=== PATIENT | female | born 1970 | race Caucasian/White ===

== ENCOUNTER → 2018-05-05 07:54 | Outpatient (CLI) | payer OTHER, MEDICAID, SELFPAY ==
[2018-05-05 08:28] LABS: Add Manual Diff / Slide Review NO; Basophils Percent Auto 0.9 % (0-2); Eosinophils Percent Auto 1.6 % (2-4); Hematocrit 35.7 % (36-46); Hemoglobin 11.9 g/dL (12.0-16.0); Mean Corpuscular HGB Conc 33.4 % (30-36); Mean Corpuscular Hemoglobin 30.5 PG (26-34); Mean Corpuscular Volume 91.4 fL (80-100); Neutrophils Absolute Auto 3100 /uL (3000-5900); Neutrophils Percent Auto 53.5 % (50-75); Platelet Count 217 X10^3/uL (150-400); Red Blood Cell Count 3.91 X10^6/uL (4.0-5.2); Red Cell Distribution Width 13.2 % (11.6-14.8); White Blood Cell Count 5.8 X10^3/uL (4.5-11.0)
[2018-05-05 08:31] LABS: Hemoglobin A1C% w Est Avg Glu 4.8 % (4.0-6.0)
[2018-05-05 08:39] LABS: Alanine Aminotransferase 32 IU/L (9-52); Albumin 3.8 g/dL (3.5-5.0); Albumin Globulin Ratio 1.8 (1.0-2.8); Alkaline Phosphatase 43 U/L (38-126); Aspartate Aminotransferase 23 IU/L (14-36); Bilirubin Total 0.3 mg/dL (0.2-1.3); Blood Urea Nitrogen 9 mg/dL (7-17); Calcium 9.2 mg/dL (8.4-10.2); Carbon Dioxide 30 mmol/L (22-32); Chloride 102 mmol/L (98-107); Cholesterol 193 mg/dL (140-199); Estimated Glomerular Filt Rate > 60.0 mL/min (>60); Globulin 2.1 g/dL (1.7-4.1); Glucose 92 mg/dL (70-100); HDL Cholesterol 71 mg/dL (40-60); HEMOLYSIS < 15 (0-50); LDL Cholesterol Calculated 99 mg/dL (<100); Sodium 141 mmol/L (137-145); Total Protein 5.9 g/dL (6.3-8.2); Triglycerides 113 mg/dL (35-150)
[2018-05-05 09:14] LABS: Total Iron Binding Capacity 253 ug/dL (265-497)
[2018-05-05 09:20] LABS: T4 Total Thyroxine 5.68 ug/dL (5.5-11.0)
[2018-05-05 09:33] LABS: Thyroid Stimulating Hormone 2.67 uIU/mL (0.47-4.68)
[2018-05-05 09:43] LABS: Folate 11.3 ng/mL (2.76-20.0); Vitamin B12 706 pg/mL (239-931)
[2018-05-06 14:19] LABS: Parathyroid Hormone Int 47 pg/mL (14-64)
[2018-05-06 20:39] LABS: Lamotrigine Lamictal < 0.5 mcg/mL (4.0-18.0)
[2018-05-08 19:59] LABS: Vitamin B1 210 nmol/L (78-185)
[2018-05-09 15:10] LABS: Vitamin B6 66.5 ng/mL (2.1-21.7)
== END ==
PROVIDERS: Physician Assistant; PCP Family Medicine; Visit Provider Family Medicine
DX: F41.1 Generalized anxiety disorder (principal); Z98.84 Bariatric surgery status; E78.1 Pure hyperglyceridemia; E78.5 Hyperlipidemia, unspecified; K21.9 Gastro-esophageal reflux disease without esophagitis; R11.0 Nausea; R63.4 Abnormal weight loss
CPT/HCPCS: 36415; 80053; 80061; 80175; 82306; 82607; 82746; 83036; 83550; 83970; 84207; 84425; 84436; 84443; 85025

== ENCOUNTER → 2021-02-07 09:52 | Outpatient (CLI) | payer OTHER, MEDICAID, SELFPAY ==
[2021-02-07 12:03] LABS: Add Manual Diff / Slide Review NO; Basophils Absolute Auto 0 /uL (0-100); Basophils Percent Auto 0.7 % (0-2); Eosinophils Absolute Auto 100 /uL (0-450); Hematocrit 40.3 % (36-46); Hemoglobin 13.3 g/dL (12.0-16.0); Lymphocytes Absolute Auto 1700 /uL (1100-4500); Lymphocytes Percent Auto 28.3 % (25-40); Mean Corpuscular HGB Conc 33.1 % (30-36); Mean Corpuscular Hemoglobin 31.9 PG (26-34); Mean Corpuscular Volume 96.4 fL (80-100); Monocytes Absolute Auto 400 /uL (0-900); Monocytes Percent Auto 6.4 % (3-14); Neutrophils Absolute Auto 3900 /uL (1500-7000); Neutrophils Percent Auto 63.6 % (50-75); Platelet Count 176 X10^3/uL (150-400); Red Blood Cell Count 4.18 X10^6/uL (4.0-5.2); Red Cell Distribution Width 14.9 % (11.6-14.8); White Blood Cell Count 6.2 X10^3/uL (4.5-11.0)
[2021-02-07 12:14] LABS: Hemoglobin A1C% w Est Avg Glu 4.5 % (4.0-6.0)
[2021-02-07 12:58] LABS: Appearance Urine UA CLOUDY; Bilirubin Urine UA 1+ (NEGATIVE); Color Urine UA ORANGE; Glucose Urine UA TRACE g/dL (Negative); Ketones Urine UA TRACE (NEGATIVE); Leukocyte Esterase Urine UA NEGATIVE (NEGATIVE); Nitrite Urine UA POSITIVE (Negative); Occult Blood Urine UA NEGATIVE (Negative); Protein Urine UA 2+ (Negative); Urobilinogen Urine UA 0.2 E.U./dL (0.2)
[2021-02-07 13:01] LABS: Alanine Aminotransferase 53 IU/L (<35); Albumin 4.1 g/dL (3.5-5.0); Albumin Globulin Ratio 1.6 (1.0-2.8); Alkaline Phosphatase 116 U/L (38-126); Aspartate Aminotransferase 77 IU/L (14-36); BUN Creatinine Ratio 13.6 (6-22); Bilirubin Total 0.4 mg/dL (0.2-1.3); Blood Urea Nitrogen 9 mg/dL (7-17); Calcium 10.1 mg/dL (8.4-10.2); Carbon Dioxide 28 mmol/L (22-32); Chloride 101 mmol/L (98-107); Estimated Glomerular Filt Rate > 60.0 mL/min (>60); Globulin 2.6 g/dL (1.7-4.1); Glucose 90 mg/dL (70-100); HEMOLYSIS < 15 (0-50); Potassium 3.9 mmol/L (3.4-5.1); Sodium 136 mmol/L (137-145); Total Protein 6.7 g/dL (6.3-8.2)
[2021-02-07 13:09] LABS: Transferrin 229 mg/dL (206-381)
[2021-02-07 13:31] LABS: Ictotest Urine Negative (Negative); RBC Urine None Seen (0-5/HPF); Squamous Epithelial Cell Urine 10-30 /HPF (0-5/HPF); WBC Urine 1-5/HPF (0-5/HPF)
[2021-02-07 13:32] LABS: Amorphous Sediment Urine 1+; Bacteria Urine Moderate (10-30); Culture Indicated Urine Specimen Cultured; Mucus Urine 1+ (Negative)
== END ==
PROVIDERS: Family Provider Family Medicine; PCP Family Medicine; Referring Provider Orthopaedic Surgery; Visit Provider Orthopaedic Surgery
DX: Z01.818 Encounter for other preprocedural examination (principal); Z01.812 Encounter for preprocedural laboratory examination; R73.9 Hyperglycemia, unspecified; N39.0 Urinary tract infection, site not specified; D64.9 Anemia, unspecified; M85.88 Other specified disorders of bone density and structure, other site; M81.0 Age-related osteoporosis without current pathological fracture
CPT/HCPCS: 36415; 77080; 80053; 81001; 83036; 84466; 85025; 87077; 87086; 87186; 93005; 93010

== ENCOUNTER → 2021-03-06 09:36 | Outpatient (CLI) | payer OTHER, MEDICAID, SELFPAY ==
[2021-03-06 12:04] LABS: COVID19 -Nasal RAPID Negative (Negative)
== END ==
PROVIDERS: Family Provider Family Medicine; PCP Family Medicine; Visit Provider Nurse Practitioner Family
DX: Z20.822 Contact with and (suspected) exposure to COVID-19 (principal); Z01.812 Encounter for preprocedural laboratory examination
CPT/HCPCS: 87635; C9803

== ENCOUNTER → 2021-03-07 12:44 | Day surgery (SDC) | payer OTHER, MEDICAID, SELFPAY ==
[2021-03-03 08:49] VITALS: BMI 27.3
--- NOTE | 2021-03-07 07:30 | DI.RAD.S_ITS ---
PROCEDURE: XR KNEE LT 1TO2V INDICATIONS: postop prosthesis placement TECHNIQUE: 2 views of the knee were acquired. COMPARISON: October 14, 2020. FINDINGS: Bones: The patient is post medial compartment resurfacing. No perihardware lucency to suggest loosening. The remaining visualized osseous structures appear maintained. Soft tissues: Joint fluid and foci of gas are seen, compatible recent intervention. No suspicious soft tissue calcifications. IMPRESSION: Expected postop appearance as detailed above. Dictated by: Bethel Salvador M.D. on 03/08/2021 at 8:49 Approved by: Bethel Salvador M.D. on 03/13/2021 at 13:41
[2021-03-07 13:16] VITALS: BP 107/75; PULSE 78; RESP 16; TEMP 36.3; O2SAT 100; BMI 27.3
[2021-03-07] MEDS: VANCOMYCIN 1,000 MG/200 ML PIGGYBACK 200 MG IV (13:40)
[2021-03-07] MEDS: PREGABALIN 75 MG CAPSULE PO (13:47)
[2021-03-07] MEDS: ACETAMINOPHEN 325 MG TABLET 650 MG PO (13:55)
[2021-03-07] MEDS: CELECOXIB 200 MG CAPSULE PO (13:56)
[2021-03-07] MEDS: LACTATED RINGERS 1,000 ML 42 ML IV (13:57)
--- NOTE | 2021-03-07 14:20 | PM.PREOP ---
Pre-operative Note COVID-19 COVID-19 status: Negative Interval Note History & Physical reviewed/Exam performed by Physician: Yes Changes to H&P: No
--- NOTE | 2021-03-07 14:20 | PM.OP.1 ---
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 Non-operative management has failed and the patient has requested medial Uni knee replacement. The risks, benefits and alternatives to surgery were discussed with the patient prior to proceeding. Risks discussed included, but were not limited to, failure to relieve pain, stiffness, infection, nerve damage, deep venous thrombosis, pulmonary embolism, stroke, coma, heart attack, permanent paralysis and , as well as the potential need for eventual revision of the prosthetic. Surgeon: [facility] Tech: Kourtney Barbour Anesthesia Type: General and Spinal Operative Notes Findings: Some softening of the distal medial femoral condyle, minimal softening of the tibia, good stability and range of motion Closure Type: primary Specimen(s): none sent Prosthetic devices, grafts, tissues, transplants, or devices: Journey 2 Uni size 4 femur, size 4 tibia, +8 poly Estimated Blood Loss (mL): 200 Blood products transfused: none Procedure in detail: The patient was seen in the pre-operative area, where the left knee was identified as the operative site and this was marked with my initials. The patient received pre-operative antibiotics, and was taken to the operating room and placed on the operative table in the supine position. After satisfactory anesthesia, a signal timer out was performed. The left leg was encircled with a tourniquet about the proximal thigh, and the leg was prepared from the toes to the tourniquet with ChloroPrep in the usual fashion and draped through sterile drapes. The leg was elevated and exsanguinated with Eschmark bandage and the tourniquet inflated to [250] mmHg pressure. The knee was approached through an approximately 10 cm incision medial parapatella incision and carried into the knee through a medial parapatellar arthrotomy. The osteophytes and medial meniscus were removed. Next, a small amount of the anterior tibial boss was carefully resected with a saw. The guide was placed along the medial joint line. It was meticulously adjusted to make sure there was appropriate slope that it was at the joint line and then was pinned to the tibia and the femur. The medial femoral condylar cut was made in extension. The tibial cut was made in flexion. Some articular cartilage was removed from both the distal femur and the tibia in order to allow insertion of the guide. The femoral cut appeared appropriate the tibial cut was a little bit shallow. I took off the guide and checked the tibial cut and then put on the 2nd piece of the guide again and made a cut about 2 mm deeper in order to provide an adequate extension gap. The bone was meticulously irrigated with normal saline. Small amount of additional meniscus was resected posterior capsule was checked and injected with Marcaine. The extension gap was carefully checked with an 8 mm gap devulcanizer loader was noted that it fit well. A small number of additional osteophytes were resected. The tibia was a size [4]. It was noted that it fit without overhang. The femur was sized and it was noted to be a [4]. The appropriate cutting guide was pinned into place and carefully positioned on the femoral condyle. Drill holes were placed. The tibia was pinned into place and drill holes were made. Trial reduction with the appropriate poly showed full range of motion and good stability at 0, 45. and 90? with normal tracking of the components without edge loading. The bone was meticulously irrigated and dried. Additional Marcaine was injected. The posterior capsule was injected with 0.25% Marcaine mixed with 20 ml Exparel for post-operative pain control. The remainder of this mixture was injected into the capsule and subcutaneous tissues during cement curing. Range of motion was [0-130], with good stability throughout the range. The trials were then remove. The cement was as applied and the final prosthetics placed. Excess cement was removed during and after cement curing. A brief medial compartment Betadine soak was performed. After confirming there was no extruded cement posteriorly, the final tibial insert was placed. The knee was copiously irrigated and the tourniquet deflated. Hemostasis was obtained. The capsule was closed with interrupted vicryl. The subcutaneous tissue was closed with barbed sutures. The skin with a running 3-0 V-Lock suture and surgical glue. An Aquacel Ag dressing was applied and the patient was taken to recovery having tolerated the procedure well. Complications: none Post-operative Condition: stable Disposition: Acute Care Plan for aftercare: The patient will be maintained on a standard uni knee replacement protocol with weight bearing as tolerated. The patient will receive aspirin and sequential compression devices for DVT prophylaxis. The patient will be discharged home when safe for the home environment.
[2021-03-07] MEDS: CEFAZOLIN 1 GM VIAL 2 GM IV (15:18)
[2021-03-07] MEDS: BUPIVACAINE 0.25% (PF) VIAL 30 ML INJ (15:28)
[2021-03-07] MEDS: EPINEPHrine 1 MG/ML 0.15 MG INJ (15:28)
--- NOTE | 2021-03-07 15:30 | SUR.OPER ---
Supine on padded OR bed. Pillow under head, arms secured on padded armboards <90 degree abduction. Safety belt across torso. Non-operative leg secured with tape over blanket over lower leg. Operative leg secured in Justin positioner.
[2021-03-07] MEDS: TRANEXAMIC ACID 1,000 MG VIAL 1000 MG INJ ×2 (15:41→16:41)
[2021-03-07] MEDS: BUPIVACAINE LIPOSOME 266 MG/20 ML VIAL INJ (15:56)
--- NOTE | 2021-03-07 16:33 | SUR.OPER ---
Supine on padded OR bed. Pillow under head, arms secured on padded armboards <90 degree abduction. Safety belt across torso. Non-operative leg secured with tape over blanket over lower leg. Operative leg (left) secured in [place] knee positioner.
[2021-03-07 17:13] VITALS: BP 99/73; PULSE 72; RESP 14; TEMP 36.3; O2SAT 96
[2021-03-07 17:17] VITALS: BP 101/69; PULSE 85; RESP 14; O2SAT 97
[2021-03-07 17:22] VITALS: BP 101/70; PULSE 67; RESP 12; O2SAT 96
[2021-03-07 17:28] VITALS: BP 97/71; PULSE 78; RESP 16; O2SAT 96
[2021-03-07] MEDS: OXYCODONE IR 5 MG TABLET PO (17:44)
[2021-03-07 17:56] VITALS: BP 123/91; PULSE 80; RESP 12; O2SAT 96
--- NOTE | 2021-03-07 19:04 | SUR.PHASEII ---
Pt d/c home via wheelchair, able to ambulate effectively with cane, VSS, a/o x 4.
== END | disposition home or self-care (01) ==
PROVIDERS: Family Provider Family Medicine; PCP Family Medicine; Referring Provider Orthopaedic Surgery; Visit Provider Orthopaedic Surgery
PROC: (CPT 27446; principal; 2021-03-07 14:15)
DX: M87.052 Idiopathic aseptic necrosis of left femur (principal); K21.9 Gastro-esophageal reflux disease without esophagitis; F41.9 Anxiety disorder, unspecified
CPT/HCPCS: 27446; 73560; C1776; C9290; J0171; J0690; J1100; J2250; J2405; J2704; J3010

== ENCOUNTER 2021-03-12 15:20 | Emergency (ER) | payer OTHER, MEDICAID, SELFPAY ==
[2021-03-12 15:31] VITALS: BP 105/63; PULSE 96; RESP 20; TEMP 36.4; O2SAT 98; BMI 27.3
--- NOTE | 2021-03-12 15:45 | DI.US.S_ITS ---
PROCEDURE: US PERIPH VENOUS LOW EXTREM LT INDICATIONS: swelling pain recent surgery TECHNIQUE: Real-time imaging, as well as color and pulse Doppler interrogation, were performed of the lower extremity deep veins from the inguinal ligament to the popliteal fossa. COMPARISON: None. FINDINGS: The common femoral, femoral and popliteal veins are normally compressible, and free of intraluminal thrombus. Color and pulse Doppler demonstrate normal phasic intraluminal flow. There is normal augmentation response to distal compression maneuver. Diffuse soft tissue edema noted throughout the lower leg. IMPRESSION: No evidence of left lower extremity deep venous thrombosis. Non-specific lower extremity edema. Dictated by: Cholo Villalobos D.O. on 03/12/2021 at 16:44 Approved by: Cholo Villalobos D.O. on 03/12/2021 at 16:53
--- NOTE | 2021-03-12 16:16 | ED_ITS ---
HPI - Extremity Problem General Chief complaint: Extremity Problem,Nontraumatic Stated complaint: LEFT LEG SWELLING PAIN SURGERY 03/07/2021 Time Seen by Provider: 03/12/21 15:45 Source: patient and family Mode of arrival: Wheelchair Limitations: no limitations History of Present Illness HPI Narrative: Patient is 50-year-old female who is status post total like knee arthropathy day number. She was discharged from the hospital 3-4 days ago. Since then she actually has been doing well. She has been trying to increase her activity level she has been doing her range of motion exercises every hour. Especially yesterday. Today she has significant swelling of her leg and increased pain with weight-bearing. She has no numbness tingling or weakness. There is no erythema she has not had any fever. She has no chest pain shortness of breath or palpitations. Concern for DVT. Related Data Home Medications Medication Instructions Recorded Confirmed cetirizine 10 mg capsule 10 mg PO DAILY 05/12/18 03/03/21 Previous Rx's Medication Instructions Recorded albuterol sulfate 90 mcg/actuation 2 puff INHALATION Q4H PRN #1 each 12/30/17 breath activated powder inhaler risperidone 0.5 mg tablet See Rx Instructions PO DAILY #90 09/08/20 tab ondansetron HCl 8 mg tablet 8 mg PO BID-TID PRN #180 tab 11/29/20 escitalopram oxalate 20 mg tablet 20 mg PO DAILY #90 tab 12/15/20 propranolol 20 mg tablet 20 mg PO BID #180 tab 12/15/20 gabapentin 300 mg capsule 300 mg PO TID #90 cap 01/11/21 hydroxyzine HCl 50 mg tablet 50 mg PO BID PRN #180 tab 02/07/21 clonazepam 0.5 mg tablet 0.5 mg PO BID PRN 10 Days #20 tab 03/04/21 oxycodone 5 mg capsule 5 mg PO Q6H PRN #30 cap 03/07/21 Allergies Allergy/AdvReac Type Severity Reaction Status Date / Time No Known Allergies Allergy Uncoded 03/07/21 13:10 Review of Systems Review of Systems Narrative: GENERAL: Denies chills, fatigue, malaise, fever, sweats, travel HEENT: Denies sinus pain, ear pain, sore throat, difficulty swallowing, neck pain RESPIRATORY: Denies dyspnea, cough, wheezing, hemoptysis, sputum. CARDIOVASCULAR: Denies chest pain, palpitations, orthopnea, edema GASTROINTESTINAL: Denies nausea, vomiting, abdominal pain, diarrhea, constipation, melena. : Denies dysuria, frequency, incontinence, hematuria, urinary retention, flank pain. MUSCULOSKELETAL: See HPI SKIN: No rash, no erythema, no pruritus NEUROLOGIC: Denies weakness, dizziness, headache, numbness, change in speech, confusion PSYCHIATRIC: No concerning psychosocial issues. 12 point review of systems is negative except for those stated above and HPI Patient History Medical History Allergy (Unknown) Anxiety (1989) Chronic back pain (Unknown) Chronic venous insufficiency Foot pain (2003) GERD (gastroesophageal reflux disease) (Unknown) Heavy menses (Unknown) IBS (irritable bowel syndrome) (1985) Neuropathy Obstructive sleep apnea (Unknown) Painful menstrual periods (Unknown) Restless leg syndrome (2014) Shoulder pain (Unknown) Vertigo (1979) Surgical History History of removal of laparoscopic gastric banding device (2014) Hx of laparoscopic gastric banding (2011) Hx of sinus surgery (2011) Family History Grandmother Cancer Mental health problem Mother Age: 73 Mental health disorder Sister Age: 55 Heart disease Hypertension High cholesterol Mental health problem Asthma COPD (chronic obstructive pulmonary disease) Social History household members: spouse Smoking Status: Current every day smoker Tobacco: How many years used: 10 second hand exposure: No alcohol intake: former substance use type: does not use Smoking Status: Current every day smoker tobacco type: cigarettes Substance Use Type: does not use Exam Initial Vital Signs Initial Vital Signs: Vital Signs Temperature 97.5 F L 03/12/21 15:31 Pulse Rate 96 H 03/12/21 15:31 Respiratory Rate 20 03/12/21 15:31 Blood Pressure 105/63 03/12/21 15:31 Pulse Oximetry 98 03/12/21 15:31 GENERAL: Alert well-appearing 50-year-old female in no acute] distress. HEENT: Head atraumatic,EOMI, pupils reactive, face symmetric, [moist] mucous membranes CARDIOVASCULAR: Regular rate and rhythm without murmurs, rubs or gallops. RESPIRATORY: Breath sounds equal bilaterally, no wheezes rales or rhonchi. EXTREMITIES: Normal range of motion, no clubbing or edema. Neurovascularly intact Left lower extremity swelling is noted there is minimal contusion no erythema bandage is not saturated. Distal pedal pulse is intact. Calf is soft. NEUROLOGICAL: Alert and oriented x4.Normal gait and speech. SKIN: Warm, dry, no laceration, no petechiae, no rashes or lesions. Course Orders Ordered: Discontinued Medications Hydromorphone HCl (Hydromorphone 2 Mg Inj) 1 mg SUBCUT Q4H PRN PRN Reason: Pain, Severe (7-10) Last Admin: 03/12/21 16:35 Dose: 1 mg Documented by: MILY Ketorolac Tromethamine (Ketorolac 30 Mg/Ml Vial) 30 mg IM NOW ONE Stop: 03/12/21 18:15 Last Admin: 03/12/21 18:23 Dose: 30 mg Documented by: ARMANDO Vital Signs Vital signs: Vital Signs - 8 hr 03/12/21 15:31 Temperature 97.5 F L Pulse Rate 96 H Respiratory Rate 20 Blood Pressure 105/63 Pulse Oximetry 98 MDM - Extremity (Nontraumatic) Imaging Data US - DVT: Radiologist's Impression: PROCEDURE:? US PERIPH VENOUS LOW EXTREM LT ? INDICATIONS:? swelling pain recent surgery ? TECHNIQUE:? Real-time imaging, as well as color and pulse Doppler interrogation, were performed of the lower extremity deep veins from the inguinal ligament to the popliteal fossa.? ? COMPARISON:? None. ? FINDINGS:? The common femoral, femoral and popliteal veins are normally compressible, and free of intraluminal thrombus.? Color and pulse Doppler demonstrate normal phasic intraluminal flow.? There is normal augmentation response to distal compression maneuver. ?Diffuse soft tissue edema noted throughout the lower leg. ? IMPRESSION:? ? No evidence of left lower extremity deep venous thrombosis. ? Non-specific lower extremity edema. ? ? Dictated by: Cholo Villalobos D.O. on 03/12/2021 at 16:44 ? ? [facility] Narrative Medical decision making narrative: At this time no evidence of DVT. At this time patient's history is more consistent with over use and postoperative swelling. She does have swelling but certainly no sign of infection at this time. I recommend elevating icing following up with Orthopedics. Discharge Plan Departure Patient Disposition: Home Clinical Impression: Post-operative pain Instructions: DI for Postoperative Pain Activity Restrictions/Additional Instructions: *You have been diagnosed with postoperative pain *What to do: At this time the do not have a blood clot no sign of infection. This swelling is likely due from overuse. I recommend to elevating and icing. She your range of motion exercises 3-5 times daily. Follow orthopedic discharge instruction *Continue to take medications as directed Do not take naproxen tonight you received Toradol in the emergency department. Please resume all medications as previously prescribed *Follow up with your primary care provider in 2-3 days *Return to ER if you should have fever, redness, pain, any new, worsening or concerning symptoms Prescriptions: No Action cetirizine 10 mg capsule 10 mg PO DAILY RF: 0 escitalopram oxalate 20 mg tablet 20 mg PO DAILY Qty: 90 RF: 3 propranolol 20 mg tablet 20 mg PO BID Qty: 180 RF: 1 albuterol sulfate 90 mcg/actuation aerosol powdr breath activated 2 puff INHALATION Q4H PRN (Reason: shortness of breath or wheezing) Qty: 1 RF: 0 risperidone 0.5 mg tablet See Rx Instructions PO DAILY Qty: 90 RF: 1 ondansetron HCl 8 mg tablet 8 mg PO BID-TID PRN (Reason: nausea and vomiting) Qty: 180 RF: 0 gabapentin 300 mg capsule 300 mg PO TID Qty: 90 RF: 0 hydroxyzine HCl 50 mg tablet 50 mg PO BID PRN (Reason: anxiety) Qty: 180 RF: 1 clonazepam 0.5 mg tablet 0.5 mg PO BID PRN (Reason: anxiety) 10 Days Qty: 20 RF: 0 oxycodone 5 mg capsule 5 mg PO Q6H PRN (Reason: pain) Qty: 30 RF: 0 Referrals: Barry Em MD [Primary Care Provider] -
[2021-03-12] MEDS: HYDROMORPHONE 2 MG INJ 1 MG SUBCUT (16:35)
[2021-03-12] MEDS: KETOROLAC 30 MG/ML VIAL IM (18:23)
[2021-03-12 18:29] VITALS: BP 124/74; PULSE 83; RESP 14; O2SAT 100
== END 2021-03-12 18:29 | disposition home or self-care (01) ==
PROVIDERS: Emergency Provider Emergency Medicine; Family Provider Family Medicine; PCP Family Medicine
DX: G89.18 Other acute postprocedural pain (principal)
CPT/HCPCS: 93971; 96372; 99283; J1170; J1885

== ENCOUNTER 2021-03-21 14:13 | Outpatient (RCR) | payer OTHER, MEDICAID, SELFPAY ==
--- NOTE | 2021-03-21 16:12 | PT.OIE ---
Current Diagnoses Presence of left artificial knee joint (03/21/21) Past Medical History (Last Reviewed 03/13/21 @ 15:42 by Estela Romero DO) Allergy (Unknown) Anxiety (1989) Chronic back pain (Unknown) Chronic venous insufficiency Foot pain (2003) GERD (gastroesophageal reflux disease) (Unknown) Heavy menses (Unknown) History of removal of laparoscopic gastric banding device (2014) Hx of laparoscopic gastric banding (2011) Hx of sinus surgery (2011) IBS (irritable bowel syndrome) (1985) Neuropathy Obstructive sleep apnea (Unknown) Painful menstrual periods (Unknown) Restless leg syndrome (2014) Shoulder pain (Unknown) Vertigo (1979) Past Surgical History (Last Reviewed 03/13/21 @ 15:42 by Estela Romero DO) History of removal of laparoscopic gastric banding device (2014) Hx of laparoscopic gastric banding (2011) Hx of sinus surgery (2011) Visit Care Team Role Provider Type Barry Em MD Family Provider Non-Staff Primary Care Provider Specialty: Family Practice Address: [address] [place] [address], [address], [place], [address] Email: Lillie Murrieta MD Attending Provider Physician Referring Provider Specialty: Orthopedic Surgery Address: [address] [place] [address], [id number] Email: [email or web address] Initial Evaluation PT-OP-A Visit Information Start: 03/21/21 13:04 Freq: Status: Active Protocol: Document 03/21/21 15:32 (Rec: 03/21/21 16:11 [email or web address]) Out-Patient Physical Therapy Visit Information Visit Information Visit Type Initial Evaluation Visit Note attended session Visit Start Time 14:30 Visit Stop Time 15:20 Total Visit Minutes 50 Visit Number 1 Number of STOREKEEPER STEWARD Visits 0 Evaluation Information Evaluation Date 03/21/21 Precautions Precautions depression and anxiety fall risks PT-OP-B Current Condition Start: 03/21/21 13:04 Freq: Status: Active Protocol: Document 03/21/21 15:32 HH (Rec: 03/21/21 16:11 [email or web address]) Current Condition History of Current Condition Onset Date 03/07/21 Current Complaints s/p Left knee medial compartment arthroplasty History of Current Condition Rebekah is a 50yo female here for her post op rehab for Left knee medial compartment arthroplasty on 03/[address] Murrieta. Pt stated she was doing fine and walked with a SPC and did ROM ex every hour for the first few days. She then felt increase in pain and swelling a few days which led her to ER. Negative for DVT, fracture and hardware loosening and ER MD concludes pt possibly overworked her surgical knee. Pt has been more sedentary every since but her swelling and pain continue to get worse. Her pain is 7-8/10 in WB position. She only elevates her leg when she sleeps on the couch and she spends most of her time there during the day. She also started using the FWW instead of her SPC d/t increase in pain. Pt did express being nervous about her prognosis and rehab. Prior Treatments and Tests Pt has been doing her LAQ and heel slide for ROM Prior Functional Status Baseline Function- Gait SPC all times, able to tolerate 200 ft at a time. Baseline Function- Other cannot tolerate walking uphill and stairs pt has 4 LATONIA for main entrance Personal Factors Other Personal Factors That May Effect depression and anxiety Therapy/Recovery fall risks PT-OP-C Subjective Start: 03/21/21 13:04 Freq: Status: Active Protocol: Document 03/21/21 15:32 (Rec: 03/21/21 16:11 [email or web address]) Patient Questionnaires Lower Extremity Functional Scale LEFS Score 8 LEFS Impairment 80 to 99% Impaired (Score 1-16 ) OP-PT Pain Assessment Location L knee Pain Location Details anterior medial compartment Intensity 8 Scale Used Numeric (0 - 10) Description Aching,Acute,Pressure Frequency Frequent Pain Aggravating Factors Position,Changing Position, Activity,Exercise,Walking, Stair Climbing Pain Alleviating Factors Inactivity,Sitting PT-OP-F Manual Assessment Start: 03/21/21 13:04 Freq: Status: Active Protocol: Document 03/21/21 15:32 HH (Rec: 03/21/21 16:11 [email or web address]) Manual Assessments Soft Tissue Assessment Soft Tissue Mobility Assessment both LLE warm to touch. no redness noted on LLE skin significant swelling from quads to ankle DVT test at calf = negative. no pain PT-OP-G Mobility & Gait Start: 03/21/21 13:04 Freq: Status: Active Protocol: Document 03/21/21 15:32 (Rec: 03/21/21 16:11 [email or web address]) OP Mobility Evaluation Transfers Sit to Stand staggered stance with FWW Bed to Chair Transfers squat pivot transfer with fWW. OP Gait Assessment Comments Gait Comments did not assess d/t pain PT-OP-J Posture/Palpation/Skin Start: 03/21/21 13:04 Freq: Status: Active Protocol: Document 03/21/21 15:32 (Rec: 03/21/21 16:11 [email or web address]) Skin Assessment Circumference Measurement R ankle Location figure 8 Comments 20 R knee Location top of patella, mid patella, tibial tub Comments 15.5, 15, 13.2 inches L ankle Location figure 8 Comments 20.7 inches L knee Location top of patella, mid patella, tibial tub Comments 18,16,7,15.3 inches PT-OP-K Range of Motion Start: 03/21/21 13:04 Freq: Status: Active Protocol: Document 03/21/21 15:32 (Rec: 03/21/21 16:11 [email or web address]) Knee Goniometric Range of Motion Knee Right Knee ROM WFL Yes Patient Position Supine Flexion Active (degrees) 130 Extension Active (degrees) 2 Comments extension= slightly flexed 2 degrees Left Knee ROM WFL No Patient Position Supine Flexion Active (degrees) 100 Extension Active (degrees) 12 Comments extension = 12 degrees flexed Ankle and Foot Goniometric Range of Motion Ankle and Foot Right Active Ankle/Foot ROM WFL Yes Testing Position Supine Dorsiflexion with Knee Extended 5 Plantarflexion 56 Left Active Ankle/Foot ROM WFL No Dorsiflexion with Knee Extended 0 Plantarflexion 47 PT-OP-M Strength Start: 03/21/21 13:04 Freq: Status: Active Protocol: Document 03/21/21 15:32 (Rec: 03/21/21 16:11 [email or web address]) Knee Strength Knee Manual Muscle Testing Right Flexion (S2) 4+ Good+ Extension (L3) 4+ Good+ Left Flexion (S2) 3 Fair Extension (L3) 3 Fair Ankle/Foot Strength Ankle and Foot Manual Muscle Testing Right Dorsiflexion (L4) 5 Normal Plantarflexion (S1) 5 Normal Left Dorsiflexion (L4) 4 Good Plantarflexion (S1) 4 Good PT-OP-Q Treatments Start: 03/21/21 13:04 Freq: Status: Active Protocol: Document 03/21/21 15:32 HH (Rec: 03/21/21 16:11 [email or web address]) Therapeutic Exercises Sitting Exercises ankle pumps Side left Comments for HEP, whenever she can Manual Therapy Treatment Manual Techniques swelling Type L LE Body Position Hooklying Reps/Duration 10 mins Comments swelling massage with upward troke on thighs followed by lower leg. Self-Care/Home Management Treatment Education Patient Education Body Mechanics,Home Exercise Program,Joint Protection,Pain Management,Posture,Safety Other Education encouraged pt to elevate her LLE when she sits, or start sleeping in bed to reduce sitting time. Recommended ankle pumps to promote swelling management. educated pt's to perform swelling massage with upward troke on thighs followed by lower leg. PT-OP-T Assessment and Plan Start: 03/21/21 13:04 Freq: Status: Active Protocol: Document 03/21/21 15:32 HH (Rec: 03/21/21 16:11 [email or web address]) Physical Therapy Assessment Rehab Potential Rehabilitation Potential Good Evaluation Complexity Number of Personal Factors/Comorbidities 1-2 Number of Body Systems Impaired 1-2 Clinical Presentation at Evaluation Stable Impairments Impairments Activity Tolerance,Balance, Functional Activities, Functional Mobility,Gait,Pain, Posture,ROM,Soft Tissue Mobility,Strength Goals rom Impairment L knee -12 to 100 Short Term Goal (STG) pt will show improved L knee ROM by 10 degrees to improve her ability for sit <> stand with even steps STG Duration 4 weeks Group Home Goal (LTG) pt will show improved L knee ROM by 20 degrees to improve her ability to climb stair without compensation LTG Duration 8 weeks gait Impairment pt came in with using WC Short Term Goal (STG) pt will be able to start walking for household distance with FWW with pain no more than 5/10 STG Duration 4 weeks Group Home Goal (LTG) pt will be able to start walking for community distance with SPC with pain no more than 3/10 LTG Duration 8 weeks LEFS Impairment pt scores 8 on LEFS Short Term Goal (STG) pt will be able to score >30 on LEFS to show improved mobility and strnegth STG Duration 4 weeks Supply Chain Engineer Goal (LTG) pt will be able to score >50 on LEFS to show improved mobility and strnegth for community activities such as grocery shopping LTG Duration 8 weeks Assessment Summary Assessment Rebekah is a 50yo female here for her post op rehab for Left knee medial compartment arthroplasty on 03/[address] Murrieta. Pt is having a setback possibly d/t overworking herself for the first few days . Upon assessment, she presents significant swelling (see measurement above) and pain 8/10 in WB position. ROM = 12 to 100 degrees. Difficulty to amb and transfer who needs W/C and FWW. No signs of infection and DVT. Skin integrity and temperature = WNL. I spent time educated pt to be aware of her LLE position and to keep it elevated. Recommended her to perform ankle pumps and swelling massage to reduce overall swelling. I believe pt will benefit from skilled therapy to improve her knee ROM, strength, stability and gait mechanics which allows her to mobilize at home and community in a safe and comfortable manner Physical Therapy Plan Frequency and Duration Frequency of Treatment 2x/Week Duration of Treatment 8 weeks Plan of Care Start Date 03/21/21 Plan of Care End Date 05/20/21 Therapeutic Interventions Therapeutic Interventions Aquatic Therapy,Balance Training,Gait Training,Home Exercise Program,Joint Mobilizations,Manual Therapy, Neuromuscular Re-education, Patient/Caregiver Education, Self-Care/Home Management,Soft Tissue Mobilization,Taping, Therapeutic Activities, Therapeutic Exercises Modalities Cold Pack/Ice Massage,Electric Stimulation,Hot Packs, Infrared Therapy,Ultrasound Next Visit Focus/Plan Next Note Type Treatment Note Next Visit Plan check swelling swelling masage first ROm stepper/ biking
--- NOTE | 2021-03-21 16:13 | PT.OPPOC ---
Physical, Occupational & Speech Therapy At [facility] Current Diagnoses Presence of left artificial knee joint (03/21/21) Visit Care Team Role Provider Type Barry Em MD Family Provider Non-Staff Primary Care Provider Specialty: Family Practice Address: [address], [address], [place], [address] Email: Lillie Murrieta MD Attending Provider Physician Referring Provider Specialty: Orthopedic Surgery Address: [address] [place] [address], [address] Email: [email or web address] Plan Of Care PT-OP-T Assessment and Plan Start: 03/21/21 13:04 Freq: Status: Active Protocol: Document 03/21/21 15:32 HH (Rec: 03/21/21 16:11 HH [email or web address]) Physical Therapy Assessment Rehab Potential Rehabilitation Potential Good Evaluation Complexity Number of Personal Factors/Comorbidities 1-2 Number of Body Systems Impaired 1-2 Clinical Presentation at Evaluation Stable Impairments Impairments Activity Tolerance,Balance, Functional Activities, Functional Mobility,Gait,Pain, Posture,ROM,Soft Tissue Mobility,Strength Goals rom Impairment L knee -12 to 100 Short Term Goal (STG) pt will show improved L knee ROM by 10 degrees to improve her ability for sit <> stand with even steps STG Duration 4 weeks Senior Care Goal (LTG) pt will show improved L knee ROM by 20 degrees to improve her ability to climb stair without compensation LTG Duration 8 weeks gait Impairment pt came in with using WC Short Term Goal (STG) pt will be able to start walking for household distance with FWW with pain no more than 5/10 STG Duration 4 weeks Senior Care Goal (LTG) pt will be able to start walking for community distance with SPC with pain no more than 3/10 LTG Duration 8 weeks LEFS Impairment pt scores 8 on LEFS Short Term Goal (STG) pt will be able to score >30 on LEFS to show improved mobility and strnegth STG Duration 4 weeks Senior Care Goal (LTG) pt will be able to score >50 on LEFS to show improved mobility and strnegth for community activities such as grocery shopping LTG Duration 8 weeks Assessment Summary Assessment Rebekah is a 50yo female here for her post op rehab for Left knee medial compartment arthroplasty on 03/[address] Murrieta. Pt is having a setback possibly d/t overworking herself for the first few days . Upon assessment, she presents significant swelling (see measurement above) and pain 8/10 in WB position. ROM = 12 to 100 degrees. Difficulty to amb and transfer who needs W/C and FWW. No signs of infection and DVT. Skin integrity and temperature = WNL. I spent time educated pt to be aware of her LLE position and to keep it elevated. Recommended her to perform ankle pumps and swelling massage to reduce overall swelling. I believe pt will benefit from skilled therapy to improve her knee ROM, strength, stability and gait mechanics which allows her to mobilize at home and community in a safe and comfortable manner Physical Therapy Plan Frequency and Duration Frequency of Treatment 2x/Week Duration of Treatment 8 weeks Plan of Care Start Date 03/21/21 Plan of Care End Date 05/20/21 Therapeutic Interventions Therapeutic Interventions Aquatic Therapy,Balance Training,Gait Training,Home Exercise Program,Joint Mobilizations,Manual Therapy, Neuromuscular Re-education, Patient/Caregiver Education, Self-Care/Home Management,Soft Tissue Mobilization,Taping, Therapeutic Activities, Therapeutic Exercises Modalities Cold Pack/Ice Massage,Electric Stimulation,Hot Packs, Infrared Therapy,Ultrasound Next Visit Focus/Plan Next Note Type Treatment Note Next Visit Plan check swelling swelling masage first ROm stepper/ biking Plan of Care Dates Plan of Care Start Date 03/21/21 Plan of Care End Date 05/20/21 Electronically Signed by: Jesus Sequeira, PT 03/21/21 1012 Please Sign and Return: I have reviewed this Plan of Care and certify that the skilled therapy services above are required to meet the patient?s needs. Physician Signature Date Printed Name and Credentials Clinical Instructor Signature Printed Name and Credentials
--- NOTE | 2021-03-23 11:51 | PT-OP ANOTE ---
Pt called in today and reports Dr. Murrieta found out yesterday that the bottom prothesis of her R medial knee collapsed post surgically. She recommended emergency surgery to have a total knee replacement. pt is waiting for scheduling at this point and she would notify PT of her updated plan soon
--- NOTE | 2021-04-24 08:41 | PT.OPDS ---
Current Diagnoses Presence of left artificial knee joint (03/21/21) Visit Care Team Role Provider Type Barry Em MD Family Provider Non-Staff Primary Care Provider Specialty: Family Practice Address: [address] [place] [address], [address], [place], [address] Email: Lillie Murrieta MD Attending Provider Physician Referring Provider Specialty: Orthopedic Surgery Address: [address] [place] [address], [place], [address] Email: [email or web address] Visit Number Visit Number 1 Discharge Summary PT-OP-T Assessment and Plan Start: 03/21/21 13:04 Freq: Status: Active Protocol: Document 04/24/21 08:40 HH (Rec: 04/24/21 08:41 HH [id number]) Physical Therapy Plan Discharge Physical Therapy Discharge Reasons No Longer Attending PT Discharge Comments per EMR, pt was found to have medial tibial plateau fx after her uni knee replacement. She underwent L TKA in early March but she hasnt returned to PT since. DC from PT today.
== END 2021-06-27 09:37 ==
LOC: PHYS 14:13
PROVIDERS: Family Provider Family Medicine; PCP Family Medicine; Referring Provider Orthopaedic Surgery; Visit Provider Orthopaedic Surgery
DX: Z96.652 Presence of left artificial knee joint (principal)
CPT/HCPCS: 97140; 97161

== ENCOUNTER → 2021-03-22 15:57 | Outpatient (CLI) | payer OTHER, MEDICAID, SELFPAY ==
[2021-03-22 16:50] LABS: Add Manual Diff / Slide Review NO; Basophils Absolute Auto 100 /uL (0-100); Eosinophils Absolute Auto 600 /uL (0-450); Eosinophils Percent Auto 6.9 % (2-4); Hematocrit 32.7 % (36-46); Hemoglobin 10.8 g/dL (12.0-16.0); Lymphocytes Absolute Auto 2000 /uL (1100-4500); Lymphocytes Percent Auto 24.8 % (25-40); Mean Corpuscular HGB Conc 33.2 % (30-36); Mean Corpuscular Hemoglobin 31.6 PG (26-34); Mean Corpuscular Volume 95.2 fL (80-100); Monocytes Absolute Auto 400 /uL (0-900); Monocytes Percent Auto 5.5 % (3-14); Neutrophils Absolute Auto 5100 /uL (1500-7000); Neutrophils Percent Auto 61.8 % (50-75); Platelet Count 420 X10^3/uL (150-400); Red Blood Cell Count 3.43 X10^6/uL (4.0-5.2); Red Cell Distribution Width 14.4 % (11.6-14.8); White Blood Cell Count 8.2 X10^3/uL (4.5-11.0)
[2021-03-22 17:19] LABS: Alanine Aminotransferase 7 IU/L (<35); Albumin 2.8 g/dL (3.5-5.0); Albumin Globulin Ratio 1.2 (1.0-2.8); Alkaline Phosphatase 85 U/L (38-126); Aspartate Aminotransferase 18 IU/L (14-36); BUN Creatinine Ratio 10.8 (6-22); Bilirubin Total 0.2 mg/dL (0.2-1.3); Blood Urea Nitrogen 7 mg/dL (7-17); Calcium 8.8 mg/dL (8.4-10.2); Carbon Dioxide 26 mmol/L (22-32); Chloride 98 mmol/L (98-107); Estimated Glomerular Filt Rate > 60.0 mL/min (>60); Globulin 2.3 g/dL (1.7-4.1); Glucose 88 mg/dL (70-100); HEMOLYSIS < 15 (0-50); Potassium 3.9 mmol/L (3.4-5.1); Sodium 130 mmol/L (137-145); Total Protein 5.1 g/dL (6.3-8.2)
== END ==
PROVIDERS: Family Provider Family Medicine; PCP Family Medicine; Referring Provider Orthopaedic Surgery; Visit Provider Orthopaedic Surgery
DX: M87.9 Osteonecrosis, unspecified (principal); Z96.652 Presence of left artificial knee joint
CPT/HCPCS: 36415; 80053; 82306; 85025

== ENCOUNTER → 2021-03-29 08:25 | Outpatient (CLI) | payer OTHER, MEDICAID, SELFPAY ==
[2021-03-29 12:01] LABS: COVID19 -Nasal RAPID Negative (Negative)
== END ==
PROVIDERS: Family Provider Family Medicine; PCP Family Medicine; Visit Provider Nurse Practitioner Family
DX: Z20.822 Contact with and (suspected) exposure to COVID-19 (principal)
CPT/HCPCS: 87635; C9803

== ENCOUNTER 2021-03-31 10:16 | Inpatient (IN) | payer OTHER, MEDICAID, SELFPAY ==
[2021-03-29 07:45] VITALS: BMI 27.3
[2021-03-31] VITALS (12 sets, daily range): BP systolic 102–124; BP diastolic 50–88; PULSE 71–111; RESP 14–18; TEMP 35.9–36.9; O2SAT 93–97; BMI 27.3
--- NOTE | 2021-03-31 10:13 | DI.RAD.S_ITS ---
PROCEDURE: XR KNEE LT 1TO2V INDICATIONS: postop prosthesis placement TECHNIQUE: 3 views of the knee were acquired. COMPARISON: [facility], , XR KNEE LT 1TO2V, 03/07/2021, 17:26. FINDINGS: Bones: Total knee arthroplasty in good position. Intra-articular drain noted. Overlying skin adolfo present. Soft tissues: No joint effusion. No suspicious soft tissue calcifications. IMPRESSION: Total knee arthroplasty in good position Approved by: Jeremie Dow M.D. on 03/31/2021 at 21:40
[2021-03-31] MEDS: PREGABALIN 75 MG CAPSULE PO (11:03)
[2021-03-31] MEDS: CELECOXIB 200 MG CAPSULE PO (11:03)
[2021-03-31] MEDS: ACETAMINOPHEN 325 MG TABLET 975 MG PO (11:03)
[2021-03-31] MEDS: LACTATED RINGERS 1,000 ML 42 ML IV ×2 (11:10→13:19)
[2021-03-31] MEDS: VANCOMYCIN 1,000 MG/200 ML PIGGYBACK 200 MG IV (11:21)
--- NOTE | 2021-03-31 11:57 | SUR.PREOP ---
No need for INR order per Dr Murrieta. Unable to cancel.
--- NOTE | 2021-03-31 12:24 | PM.PREOP ---
Pre-operative Note COVID-19 COVID-19 status: Negative Interval Note History & Physical reviewed/Exam performed by Physician: Yes Changes to H&P: No
[2021-03-31] MEDS: fentaNYL 100 MCG/2 ML INJ 50 MCG IV ×2 (12:25→12:29)
[2021-03-31] MEDS: MIDAZOLAM 2 MG/2 ML VIAL IV (12:25)
--- NOTE | 2021-03-31 12:26 | SUR.PREOP ---
Block start time [1224] . Monitoring initiated and maintained throughout procedure. Oxygen and medications given per anesthesiologist instructions. Patient remained stable throughout procedure, no adverse reactions noted. Block end time [1232].
--- NOTE | 2021-03-31 12:34 | PM.OP.1 ---
Operative Date/Time/Diagnoses Date of procedure: 03/31/21 Time of procedure: 12:40 Pre-op diagnosis: left knee uni replacement with new medial tibial plateau fracture Post-op diagnosis: same Procedure & Clinicians Procedure: A left total knee revision with revision of all components bone grafting of the medial tibial plateau fracture Same procedure as scheduled: Yes Indications: S a 50-year-old female with a known history of osteoporosis who unfortunately likely hyperextended her knee and developed severe worsening left knee tibial plateau pain. X-ray showed evidence of a tibial plateau fracture. there was gross displacement of the medial tibial component. And a comminuted tibial plateau fracture. Beatrice the was felt that the most appropriate revision plan was for revision of unicompartment to try compartment arthroplasty with possible ORIF of the medial tibial plateau. Surgeon: Lillie Murrieta Greenhouse Transplanter: Kourtney Barbour Anesthesia Type: General and Spinal Operative Notes Findings: grossly displaced medial tibial plateau fracture. There was bone that was adherent to the underlying component but severe softening of the medial tibial plateau. There was also a small fragment posteriorly suggestive of a possible PCL injury. She had marked softening of her bone. There was adequate fixation with a cemented total knee arthroplasty with a medial tibial augment and a posterior medial femoral augment. Very soft bone both in the tibia and in the femur especially medially. Adequate stability and full range of motion. Closure Type: primary Specimen(s): none sent Prosthetic devices, grafts, tissues, transplants, or devices: [facility] knee size 4 femur, +5 posterior augment, femoral stem was 10 x 160. On the medial tibial plateau I used a 10 mm augment and a size 2 tibial component, there was also a 10 mm by 160 femoral stem. the tibia looked best covered with a 2 mm offset. The patella was 35 by 7-1/2. The implant poly was 12 mm high flexion. Applied: drain(s) Estimated Blood Loss (mL): 250 Blood products transfused: none Tourniquet time (min): 144 Procedure in detail: The patient was seen in the pre-operative area, where the patient identified the left knee as the operative site and this was marked with my initials. The patient received pre-operative antibiotics, and was taken to the operating room and placed on the operative table in the supine position. After satisfactory anesthesia, a full stack developer out was performed. The left leg was encircled with a tourniquet about the proximal thigh, and the leg was prepared from the toes to the tourniquet with ChloroPrep in the usual fashion and draped through sterile drapes. The leg was elevated and exsanguinated with Eschmark bandage and the tourniquet inflated to [250] mmHg pressure. Tourniquet was elevated for a total of 144 minutes. The knee was approached through an approximately 24 cm incision centered over the patella and carried into the knee through a medial parapatellar arthrotomy. A portion of the Medial synovium and lateral meniscus was resected. Soft tissue was carefully mobilized around the patella the patella was measured with a caliper. Bone was resected from the patella and the patellar height was reconstituted with up an appropriate sized patellar component. A cover was then placed on the patella. A small amount of additional medial and lateral meniscus was resected. The polyethylene from the unicompartment was removed. It was little difficult to remove because of the medial femoral condyle was so grossly unstable. The poly was removed. I then meticulously used a saw to carefully free the tibial component from the residual medial tibial bone. The tibial component was then removed. The distal femur was cut at 5?. A [+2] cut was used. the lateral distal femoral piece was removed. I checked the resection on the medial femoral condyle flexion adequate distal medial femoral condylar resection. I then used an oscillating saw to meticulously remove the medial femoral condylar component. It looked like an appropriate distal femoral cut and the cut was made without difficulty. there was some bone loss posteriorly for the posterior medial femoral condyle but no severe bone loss distally. An intramedullary guide was used for the tibial cut. 12 mm was resected off the least affected side.The tibia was carefully reamed up to an 11. It was set at 160 in preparation for potential offset coupling. The it was sized at a size 2. At looked appropriate with a to 2 mm offset. Proximal reaming was performed in preparation for the offset weaver apprentice. a guide was placed along the tibia and I checked the medial tibial gap. Medial tibial gap was about 10 mm. The proximal medial tibial plateau it been crunch down and was somewhat unstable. There was improved stability after resecting for the 10 mm augment. A posterior rotational punch was prepared. The rotation was assessed. The patient was placed in extension residual medial and lateral meniscus as well as any residual bone was carefully resected. Hemostasis was achieved especially posteriorly. Additional local was injected into the posterior capsule. The extension gap was assessed and no additional releases for gap balancing were needed. The femur was then prepped after inserting the trial tibial component. It was reamed For a femoral stem. it did not look like it needed additional offset. Posterior medial resection was done of 5 mm. Finishing cuts were made for the Vinson firs and the rotation was carefully checked. There was minimal anterior attenuation. The femoral component fit adequately. The femoral component trial was placed and the notch was finished. The rotation was assessed and the appropriate size femoral guide was placed on the distal femur and finishing cuts were made. There was no evidence of notching. The anterior, posterior and chamfer cuts were then made. The posterior osteophytes and soft tissues were then removed. The posterior capsule was injected with part of a mixture of 60 ml 0.25% Marcaine mixed with 20 ml Exparel for post operative pain control. The remainder of this mixture was injected into the capsule and subcutaneous tissues during cement curing. The tibial and femoral components were then placed and the knee placed through a range of motion. Range of motion was [0-130], with good stability throughout the range. The trials were then removed. the final implants were constructed on the back table. Bone graft was specifically packed along the medial tibial plateau in the region of the fracture plaque did in but attempted to avoid over stuffing the medial tibial plateau. I also kept residual room for the tibial augment. The bone was prepared with pulsatile lavage, and dried with a sponge. Cement was applied and the final prosthetics placed. Excess cement was removed during and after cement curing. A brief Betadine soak was performed. After confirming there was no extruded cement posteriorly, the final tibial insert was placed. The knee was copiously irrigated and the tourniquet deflated. Hemostasis was obtained with the [Werewolf system]. A drain was placed and brought out superolaterally. The capsule was closed with interrupted nonabsorbable suture. The subcutaneous layer was closed with barbed sutures, and the skin with a running 3-0 V-Lock suture and Surgical glue. An Aquacel Ag dressing was applied and the patient was taken to recovery having tolerated the procedure well. Complications: none Post-operative Condition: stable Disposition: Acute Care Plan for aftercare: The patient will be maintained on a standard total knee replacement protocol with partial weight bearing up to 100lbs. The patient will receive Aspirin and sequential compression devices for DVT prophylaxis. The patient will be discharged home when safe for the home environment Tomorrow or more likely Saturday..
[2021-03-31] MEDS: CEFAZOLIN 1 GM VIAL 2 GM IV ×2 (13:00→20:42)
[2021-03-31] MEDS: TRANEXAMIC ACID 1,000 MG VIAL 1000 MG INJ ×2 (13:05→15:51)
--- NOTE | 2021-03-31 13:08 | SUR.OPER ---
Supine on padded OR bed. Pillow under head, arms secured on padded armboards <90 degree abduction. Safety belt across torso. Non-operative leg secured with tape over blanket over lower leg. Operative leg secured in DeMay positioner. Foam padded brace at thigh of operative leg.
[2021-03-31] MEDS: BUPIVACAINE 0.25% (PF) 60 ML, EPINEPHrine 0.3 MG INJ (13:27)
[2021-03-31] MEDS: BUPIVACAINE LIPOSOME 266 MG/20 ML VIAL INJ ×2 (13:28→13:29)
[2021-03-31] MEDS: LORazepam 2 MG/ML INJ 0.25 MG IV ×2 (16:31→16:38)
[2021-03-31] MEDS: fentaNYL 100 MCG/2 ML INJ IV ×3 (16:32→17:10)
[2021-03-31] MEDS: IBUPROFEN 400 MG TABLET PO ×2 (18:12→20:43)
[2021-03-31] MEDS: LACTATED RINGERS 1,000 ML 100 ML IV (18:13)
[2021-03-31] MEDS: OXYCODONE IR 5 MG TABLET PO ×2 (18:41→22:53)
--- NOTE | 2021-03-31 19:09 | PC.NURSE ---
Patient to floor at 1730. She has and aquacel dressing in place with an steve wrap and hemovac that was unclamped at 1800. Vac has red bloody drainage in chamber. Patient complained of pain to knee at 7/10. Given 5mg of oxycodone and helpful. She ate well at dinner and is resting with LR infusing at 100cc/hr. CMS wnl and ppx2.
[2021-03-31] MEDS: ACETAMINOPHEN 325 MG TABLET 650 MG PO (20:42)
[2021-03-31] MEDS: PROPRANOLOL 10 MG TABLET 20 MG PO (20:42)
[2021-03-31] MEDS: DOCUSATE 100 MG CAPSULE PO (20:43)
[2021-03-31] MEDS: ASPIRIN EC 81 MG TABLET PO (20:43)
[2021-03-31] MEDS: risperiDONE 1 MG TABLET 0.5 MG PO (20:43)
[2021-03-31] MEDS: GABAPENTIN 300 MG CAPSULE PO (20:43)
[2021-04-01] VITALS (7 sets, daily range): BP systolic 93–140; BP diastolic 63–90; PULSE 67–80; RESP 16–17; TEMP 35.9–36.4; O2SAT 93–99
[2021-04-01] MEDS: OXYCODONE IR 5 MG TABLET PO (04:08)
[2021-04-01] MEDS: IBUPROFEN 400 MG TABLET PO ×5 (04:08→21:05)
[2021-04-01] MEDS: CEFAZOLIN 1 GM VIAL 2 GM IV (04:15)
[2021-04-01] MEDS: HYDROMORPHONE 2 MG TABLET PO ×5 (05:26→17:40)
[2021-04-01 05:30] LABS: Hematocrit 31.7 % (36-46); Hemoglobin 10.4 g/dL (12.0-16.0)
[2021-04-01] MEDS: HYDROMORPHONE 0.5 MG INJ 0.2 MG IV ×6 (07:39→18:53)
[2021-04-01] MEDS: hydrOXYzine pamoate 25 MG CAPSULE 50 MG PO ×2 (07:47→12:15)
[2021-04-01] MEDS: ACETAMINOPHEN 325 MG TABLET 650 MG PO ×3 (07:48→21:05)
[2021-04-01] MEDS: ASPIRIN EC 81 MG TABLET PO ×2 (07:49→21:04)
[2021-04-01] MEDS: GABAPENTIN 300 MG CAPSULE PO ×3 (07:50→21:05)
[2021-04-01] MEDS: ESCITALOPRAM 10 MG TABLET 20 MG PO (08:16)
[2021-04-01] MEDS: PROPRANOLOL 10 MG TABLET 20 MG PO ×2 (08:17→21:04)
--- NOTE | 2021-04-01 09:13 | PM.PNPO.1 ---
Subjective Subjective Date Patient Seen: 04/01/21 Time Patient Seen: 09:13 Interval history: Patient states her pain is severe. Difficulty moving leg because of knee pain. Denies fever or chills. No nausea/ vomiting. She states she has 4 steps into her house. Her mother will be available to assist her during the day as her typically works but will be home in the evenings. Exam Vital Signs (past 8 hours): - 04/01/21 04:20 Temperature 97.6 F Pulse Rate 78 Respiratory Rate 16 Blood Pressure 125/83 Pulse Oximetry 96 Oxygen Delivery Method Room Air Oxygen Flow Rate 0 Narrative Exam Narrative: 50-year-old female sitting in bed having breakfast in no apparent distress. Motor functions intact bilateral lower extremities. Sensation grossly intact to light touch bilateral lower extremities. Drain is in place. Gurdeep dressing on and functioning. Dressing is Clean, dry, intact. Objective Labs Result Diagrams: 04/01/21 05:17 Labs: Laboratory Results - last 24 hr 04/01/21 05:17 Hgb 10.4 L Hct 31.7 L PFSH Medical History Allergy (Unknown) Anxiety (1989) Chronic back pain (Unknown) Chronic venous insufficiency Foot pain (2003) GERD (gastroesophageal reflux disease) (Unknown) Heavy menses (Unknown) IBS (irritable bowel syndrome) (1985) Neuropathy Obstructive sleep apnea (Unknown) Painful menstrual periods (Unknown) Restless leg syndrome (2014) Shoulder pain (Unknown) Vertigo (1979) Surgical History History of removal of laparoscopic gastric banding device (2014) Hx of laparoscopic gastric banding (2011) Hx of sinus surgery (2011) 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) Family History Grandmother Cancer Mental health problem Mother Age: 73 Mental health disorder Sister Age: 55 Heart disease Hypertension High cholesterol Mental health problem Asthma COPD (chronic obstructive pulmonary disease) Social History household members: spouse and other Smoking Status: Current every day smoker Tobacco: How many years used: 10 second hand exposure: No alcohol intake: former substance use type: does not use Assessment & Plan Post-op Postoperative Procedures: Procedures Operation Date: 03/31/21 12:15 Actual Procedure Side Surgeon p Medial unicompartmental knee arthroplasty to total knee arthroplasty/revision poss ORIF tibia Left Lillie Murrieta MD Postoperative day: 1 Postoperative status: marginal pain control Postoperative plan: routine post-op care and other (Weight-bearing left lower extremity up to 100 lb) Postoperative plan narrative: The patient will be maintained on a standard total knee replacement protocol with partial weight bearing up to 100lbs. Mobilize with physical therapy Receive aspirin and sequential compression devices for DVT prophylaxis. Multimodal pain management Disposition: Home 1-2 days Quality VTE Deep Vein Thrombosis/Pulmonary Embolism Present on Admission: No
--- NOTE | 2021-04-01 09:14 | CM.DANOTE ---
DCP: Case received, EMR reviewed and met with patient. Introduced self and role. Was able to obtain information regarding patient's baseline activity status at home prior to surgery, and her current living situation. DCP assessment was completed with information currently available. Patient is a 50 year old female who admitted yesterday morning to the care of the orthopedic team. PCP: Dr. Em. Payer: confirmed: [employer]/Medicaid. Patient came to the hospital via private vehicle for a surgical procedure. She had a left total knee revision. Patient had been here for surgery on 03/07, and was discharged home, but had problems with her prostesis. She was having a hard time getting around, was using her walker. She was needing additional surgery to correct the problem. Met with patient in her room. She is alert and oriented. She was sitting up in bed. She has not yet worked with P.T. She resides here in [place] with her spouse, Vick. Her mother has also been staying her, her name is Bhumika, and has been assisting her since she had her last surgery. Her spouse is not always home, and works. She indicated that she was going to do outpatient surgery, but is hard to get out and for me to drive right now. Mentioned home health, which she stated, may be a good thing if she can't get out to outpatient P.T. Confirmed that her mother will stay with her to assist, and spouse when needed. She stated that she does have 4 stairs to get into the house, and she mentioned that there is no rail. Patient has never used home health before, and would have no preference on agencies. P: DCP to continue to follow, and will see how she does with physical therapy. Michelle Montemayor RN/Bolt Sawyer Discharge Planning/Care Management CM Discharge Assessment Start: 04/01/21 09:09 Freq: Status: Active Protocol: Document 04/01/21 09:09 (Rec: 04/01/21 09:14 [id number]) Discharge Planning Assessment Assigned Securities Vault Supervisor Michelle Montemayor RN/Bolt Sawyer Advance Directives? No Advance Directives on File No History Provided By Patient,Medical Record Prior Living Arrangements House Household Members spouse,other Comment Patient's mother has also been staying with her Type of transporation used prior to Drives own vehicle admit Independent with ADL's Yes Is patient alert and oriented? Yes Needs Assistance With Meal Prep,Home Chores / Shopping Comment Patient had recent surgery here on 03/07, and has been needing some assist at home. Caregiver for Another No DME Already Rented / Owned FWW / Walker Patient/Family Preference Home with Home Health Comment Discussed at visit if she is unable to go to outpatient P.T , may want to consider home health P.T. Barriers to Discharge No Comment As long as family can assist at home. Will see how she does with P.T. Discharge Plan Home Transportation Arrangement Spouse Referrals Initiated Other Additional Comment May initiate home health, but will have to see how she does with P.T. Whiteboard Updated in Patient Room with Yes name and ext. # of Securities Vault Supervisor Review Status In Process Next Review Type Continued Stay Review Pre-Anesthesia Assessment Start: 03/29/21 07:45 Freq: Status: Complete Protocol: Document 03/29/21 07:45 CAB (Rec: 03/29/21 07:57 CAB [id number]) Pre-Anesthesia Assessment PAC Comment Pt is s/p Left uni knee Patient Information Reviewed Via Chart Review Diagnostic Results BMP/CMP,CBC Comment Labs @ [facility] 03/22/21COVID screen @ [facility] 03/29/21 Primary Care Provider Yuli Burger Seen Specialist in Last 12 Months Yes Specialist Seen Emergency,Orthopedist Primary Language Divehi Preferred Language Divehi Layout Designer Required No Height 5 ft Weight 140 lb Body Mass Index (BMI) 27.3 Barriers to Learning None Hx Anesthesia Reactions No Hx Family Anesthesia Reaction No Hx Malignant Hyperthermia No Hx Blood Transfusion Reaction No Anesthesia Review Requested No Ham Smoker No alcohol intake former Alcohol Intake Frequency Other: Hx of alcohol disorder Smoking Status Current every day smoker Substance Use Type does not use Pain Present Pain Reported Musculoskeletal Symptoms Abnormal Gait,Difficulty Walking,Joint Pain Patient is completely paralyzed or No completely immobile Is patient on oxygen? No Hx Sleep Apnea No CPAP/BIPAP use not prescribed Currently Taking a Beta Alexander Yes: Propranolol Anti-Coagulant Therapy No Cardiac Testing No Hx Pacemaker/ICD No Pacemaker Rep Required? No Cardiac Clearance Received Not Applicable Gastrointestinal Symptoms Reflux Urinary Catheter Present No Hx Urinary Self Catheterization No Diabetes No HgbA1C 4.5 Date 02/07/21 Patient No Lactating No Presence of External or Internal Medical Yes: left knee Devices Received a COVID vaccine? Yes: J[employer]J Marital Status Lives With spouse Patient Discharge Plan Description Return Home Advance Directives? No
[2021-04-01] MEDS: clonazePAM 0.5 MG TABLET PO ×2 (10:23→21:05)
--- NOTE | 2021-04-01 13:37 | PT.IIE ---
Current Diagnoses Displaced fracture of medial condyle of left tibia, initial encounter for closed fracture (03/31/21) Presence of unspecified artificial knee joint (03/31/21) Surgery Performed Operation Date: 03/31/21 12:15 Actual Procedures p Medial unicompartmental knee arthroplasty to total knee arthroplasty/revision poss ORIF tibia(Left) - Lillie Murrieta MD Medical History (Last Reviewed 04/01/21 @ 09:15 by Wicho Gold PA-C) Allergy (Unknown) Anxiety (1989) Chronic back pain (Unknown) Chronic venous insufficiency Foot pain (2003) GERD (gastroesophageal reflux disease) (Unknown) Heavy menses (Unknown) IBS (irritable bowel syndrome) (1985) Neuropathy Obstructive sleep apnea (Unknown) Painful menstrual periods (Unknown) Restless leg syndrome (2014) Shoulder pain (Unknown) Vertigo (1979) Physical Therapy Inpatient Evaluation/Re-Eval M1 PT/OT-IP Prior Functional Status Start: 04/01/21 13:08 Freq: NEEDED Status: Active Protocol: Document 04/01/21 10:45 LRN (Rec: 04/01/21 13:36 LRN [id number]) Medical Review Prior Functional Status Medical History Reviewed Yes Diet/Fluid Consistency Regular Communication No deficits Mobility and Gait FWW Activities of Daily Living and IADL's Independent with spousal assist if needed. Social History Household Members spouse,other Living Arrangements House Number of Floors (Floors) Two Floors Number of Stairs To Enter/Railing? 5-6 steps. 4-5 of the steps with railing on left side ascending. Home Environment Standard Height Toilet,Tub/ Shower Home Equipment Front Wheel Walker,Tub Transfer Bench Employment Status Unknown Additional Social History Comment Spouse has new job and will not be present during the daytime to assist at home. M2 PT-IP Current Condition Start: 04/01/21 13:08 Freq: NEEDED Status: Active Protocol: Document 04/01/21 10:45 LRN (Rec: 04/01/21 13:36 LRN [id number]) Physical Therapy Current Condition Current Condition Evaluation Date 04/01/21 Treatment Diagnosis Left Total knee revision Onset Date 03/31/21 M3 PT-IP Subjective Start: 04/01/21 13:08 Freq: NEEDED Status: Active Protocol: Document 04/01/21 10:45 LRN (Rec: 04/01/21 13:36 LRN [id number]) Subjective Physical Therapy Visit Type Type Initial Evaluation Visit Start Time 10:35 Visit Stop Time 11:15 Total Visit Minutes 40 Physical Therapy Visit Comments Patient Comments Pt states she would like a copy of the goals and what she should be doing. Patient Goals Pt goal is to home with home health. Therapy Pain Assessment Pain When Pain Assessed After Treatment Pain Present Pain Present Pain Reported Location Left Knee Intensity 8 Scale Used Numeric (0 - 10) Pain Behaviors Facial Grimacing Pain Management Techniques Apply Cold M4 PT-IP Mobility and Gait Start: 04/01/21 13:08 Freq: NEEDED Status: Active Protocol: Document 04/01/21 10:45 LRN (Rec: 04/01/21 13:36 LRN [id number]) PT-Bed Mobility Assessment Supine to Sit Supine to Sit Minimal Assistance Sit to Supine Sit to Supine Independent Scooting Scooting to Edge of Bed Independent PT-Transfer Assessment Sit to and From Stand Sit to and from Stand Standby Assistance,Contact Guard Assistance,1 Person Assistance Equipment Transfer Assistive Device Gait Belt,4 Wheeled Walker Orthotic/Prosthetic Devices or Brace: No Transfers Transfer Destination Bedside Commode Transfer Technique Stand Step Pivot Transfer Ability Level of Assist Contact Guard Assistance Comments Mobility Comments Refused ambulation after sitting on Bedside commode. Gait Assessment Comments Gait Comments Pt did step tranfer, but refused gait. She was able to step transfer with CGA and minimal assist with walker and with verbal cuing for stepping/weightbearing onto L LE. Stair Climbing Assessment Comments Stair Climbing Comments Not yet appropriated. PT-Balance Assessment Sitting Balance and Reactions Static Sitting Balance Ability Normal Dynamic Sitting Balance Ability Normal Standing Balance and Reactions Static Standing Balance Ability Good Dynamic Standing Balance Ability Good Device Used FWW M5 PT-IP Objective Assessments Start: 04/01/21 13:08 Freq: NEEDED Status: Active Protocol: Document 04/01/21 10:45 LRN (Rec: 04/01/21 13:36 LRN [id number]) Orientation Orientation/Cognition Level of Alertness Alert Orientation Name,Situation Language Function Ability No Deficits Noted Safety Awareness Understands Safety Issues Memory Description No Deficits Noted Gross Range of Motion Upper Extremity ROM Assessment Within Functional Limits Lower Extremity ROM Assessment Right Impaired Impairments L knee AROM in supine: ~10-45 deg's L knee AROM in sitting: ~20-75 deg's Strength Upper Extremity Strength Assessment Within Functional Limits Lower Extremity Strength Assessment Left Impaired Hip L hip generally 3-/5 Knee L knee generally 2+/5 Sensation Assessment Comments Sensation Comments Unable to assess L knee due to bandaging. M6 PT-IP Treatment Start: 04/01/21 13:08 Freq: NEEDED Status: Active Protocol: Document 04/01/21 10:45 LRN (Rec: 04/01/21 13:36 LRN [id number]) Physical Therapy Treatment Exercises Exercises Ankle Pumps,Gluteal Sets,Quad Sets,Heel Slides,Straight Leg Raises,Supine Hip Abduction, Short Arc Quads,Seated Knee Flexion/Extension M7 PT-IP Assessment and Plan Start: 04/01/21 13:08 Freq: NEEDED Status: Active Protocol: Document 04/01/21 10:45 LRN (Rec: 04/01/21 13:36 LRN [id number]) PT Summary Assessment and Plan Potential Rehabilitation Potential Good Status of Condition at Evaluation Evolving Summary Impairments Pain,ROM,Strength,Balance,Gait ,Activity Tolerance Assessment Summary Pt is a 50 yo female who underwent and elective L total knee revision on 03/31/21. Pt is limited in L knee mobility and strength as expected and is having pain with transfers and gait. Today she tolerated physical therapy in bed quite well, but had low tolerance to standing and did not want to attempt walking due to L knee pain. The pt is expected to do well with therapy as she is aware of the protocol for rehabilitation and is agreeable to treatment. The pt will benefit from skilled physical therapy to progress her towards discharge to home with home health. Goals Bed Mobility Goal Independent Transfer Goal Independent Gait Goal Independent,Front Wheel Walker Gait Distance 50' Other Goals Stairs with SBA>Carley of 1 with railing on L side ascending, steps. Days to Meet Goals 3 Frequency of Treatment Frequency Of Treatment Twice a Day Treatment Plan Physical Therapy Treatment Plan Bed Mobility Training,Transfer Training,Gait Training, Therapeutic Exercise,Post Op Education,Discharge Planning, Hot or Cold Pack Other Recommendations and Next Treatment Stair ambulation training. Focus Weight Bearing Status Weight Bearing Status Full Weight Bearing Recommendations To Nursing Amount of Assist Needed 1 Person Assist Discharge Recommendations PT Discharge Recommendations Home with Assistance Transportation Needs at Discharge Private Vehicle
--- NOTE | 2021-04-01 14:14 | PT.IPTN ---
Current Diagnoses Displaced fracture of medial condyle of left tibia, initial encounter for closed fracture (03/31/21) Presence of unspecified artificial knee joint (03/31/21) Surgery Performed Operation Date: 03/31/21 12:15 Actual Procedures p Medial unicompartmental knee arthroplasty to total knee arthroplasty/revision poss ORIF tibia(Left) - Lillie Murrieta MD Physical Therapy Treatment Note M2 PT-IP Current Condition Start: 04/01/21 13:08 Freq: NEEDED Status: Active Protocol: Document 04/01/21 10:45 LRN (Rec: 04/01/21 13:36 LRN [id number]) Physical Therapy Current Condition Current Condition Evaluation Date 04/01/21 Treatment Diagnosis Left Total knee revision Onset Date 03/31/21 M3 PT-IP Subjective Start: 04/01/21 13:08 Freq: NEEDED Status: Active Protocol: Document 04/01/21 14:01 KS (Rec: 04/01/21 14:26 KS [id number]) Subjective Physical Therapy Visit Type Type Treatment Note Visit Start Time 14:01 Visit Stop Time 14:14 Total Visit Minutes 13 Number of SOFTWARE ENGINEER WEB SERVICES Visits 1 Physical Therapy Visit Comments Patient Comments Pt reported high level of pain . Patient Goals Pt goal is to home with home health. M4 PT-IP Mobility and Gait Start: 04/01/21 13:08 Freq: NEEDED Status: Active Protocol: Document 04/01/21 14:01 KS (Rec: 04/01/21 14:26 KS [id number]) PT-Transfer Assessment Comments Mobility Comments Pt at first refused therapy, but then agreed to complete exercises in bed. Pt offers that she just ambulated to bathroom w/ FWW and assistance from , confirms. She also stated she is waiting on more pain meds. Bag of medication noticed on floor next to patient, NATIONAL EXPANSION RECRUITER notified. Pt able to complete 1x10 ankle pumps and glute sets and 1x5 quad sets and heel slides. Explained importance of weight bearing to patient, but she is unwilling at this time. Pt left in bed with all needs in reach. Gait Assessment Comments Gait Comments Refused ambulation Stair Climbing Assessment Comments Stair Climbing Comments Not assessed. Pt stated that she has been unable to complete steps at home and typically sits on steps and boosts herself up with BUE to ascend steps at home. M5 PT-IP Objective Assessments Start: 04/01/21 13:08 Freq: NEEDED Status: Active Protocol: Document 04/01/21 10:45 LRN (Rec: 04/01/21 13:36 LRN [id number]) Orientation Orientation/Cognition Level of Alertness Alert Orientation Name,Situation Language Function Ability No Deficits Noted Safety Awareness Understands Safety Issues Memory Description No Deficits Noted Gross Range of Motion Upper Extremity ROM Assessment Within Functional Limits Lower Extremity ROM Assessment Right Impaired Impairments L knee AROM in supine: ~10-45 deg's L knee AROM in sitting: ~20-75 deg's Strength Upper Extremity Strength Assessment Within Functional Limits Lower Extremity Strength Assessment Left Impaired Hip L hip generally 3-/5 Knee L knee generally 2+/5 Sensation Assessment Comments Sensation Comments Unable to assess L knee due to bandaging. M6 PT-IP Treatment Start: 04/01/21 13:08 Freq: NEEDED Status: Active Protocol: Document 04/01/21 14:01 KS (Rec: 04/01/21 14:26 KS [id number]) Physical Therapy Treatment Exercises Exercises Ankle Pumps,Gluteal Sets,Quad Sets,Heel Slides Other Treatments Other Treatment Performed Education on weight bearing importance, discussed HHPT. M7 PT-IP Assessment and Plan Start: 04/01/21 13:08 Freq: NEEDED Status: Active Protocol: Document 04/01/21 14:01 KS (Rec: 04/01/21 14:26 KS [id number]) PT Summary Assessment and Plan Potential Rehabilitation Potential Good Status of Condition at Evaluation Evolving Summary Impairments Pain,ROM,Strength,Balance,Gait ,Activity Tolerance Assessment Summary Pt at first refused therapy this PM due to pain, but was able to complete LE exercises to promote blood flow, ROM, and strengthening. Pt c/o increased pain w/ quad sets. Refused ambulation this PM despite education provided on importance of weight bearing, however reported ambulation to bathroom w/ and FWW. Will continue to progress pt progress, but anticipating d/c home w/ HHPT and support. Goals Bed Mobility Goal Independent Transfer Goal Independent Gait Goal Independent,Front Wheel Walker Gait Distance 50' Other Goals Stairs with SBA>Carley of 1 with railing on L side ascending, steps. Days to Meet Goals 3 Frequency of Treatment Frequency Of Treatment Twice a Day Treatment Plan Physical Therapy Treatment Plan Bed Mobility Training,Transfer Training,Gait Training, Therapeutic Exercise,Post Op Education,Discharge Planning, Hot or Cold Pack Other Recommendations and Next Treatment Stair ambulation training. Focus Weight Bearing Status Weight Bearing Status Full Weight Bearing Recommendations To Nursing Amount of Assist Needed 1 Person Assist Discharge Recommendations PT Discharge Recommendations Home with Assistance Transportation Needs at Discharge Private Vehicle
[2021-04-01] MEDS: risperiDONE 1 MG TABLET 0.5 MG PO (21:04)
[2021-04-01] MEDS: DOCUSATE 100 MG CAPSULE PO (21:05)
[2021-04-01] MEDS: OXYCODONE IR 10 MG TABLET PO (22:10)
[2021-04-02] MEDS: IBUPROFEN 400 MG TABLET PO ×5 (04:31→20:11)
[2021-04-02] MEDS: OXYCODONE IR 10 MG TABLET PO (04:32)
[2021-04-02 04:36] VITALS: BP 130/83; PULSE 72; RESP 17; TEMP 36.3; O2SAT 97
[2021-04-02] MEDS: HYDROMORPHONE 0.5 MG INJ 0.2 MG IV ×4 (06:05→20:17)
[2021-04-02 07:05] VITALS: BP 118/78; PULSE 66; RESP 16; TEMP 36.6; O2SAT 94
[2021-04-02 08:07] VITALS: O2SAT 99
--- NOTE | 2021-04-02 08:34 | PM.PNPO.1 ---
Subjective Subjective Date Patient Seen: 04/02/21 Time Patient Seen: 08:35 Interval history: The patient reports pain between 10/03 and 02/03. She says the oxycodone, does nothing and that she is receiving 1/2 the dose of hydromorphone she took orally before surgery. She is having to rely on IV hydromorphone for pain control. She is independent transferring to the bedside commode, but hasn't ambulated outside her hospital room. Exam Vital Signs (past 8 hours): - 04/02/21 04:36 04/02/21 07:05 04/02/21 08:07 Temperature 97.4 F L 97.9 F Pulse Rate 72 66 Respiratory Rate 17 16 Blood Pressure 130/83 118/78 Pulse Oximetry 97 94 99 Oxygen Delivery Method Room Air Oxygen Flow Rate 0 Narrative Exam Narrative: Left knee wound is dressed with a small amount of drainage on the bandage overlying the operative wound and a small amount of drainage surrounding the drain tube. Calf is soft. Light touch and motion are intact in the left lower extremity. Objective Labs Result Diagrams: 04/01/21 05:17 [facility] Medical History Allergy (Unknown) Anxiety (1989) Chronic back pain (Unknown) Chronic venous insufficiency Foot pain (2003) GERD (gastroesophageal reflux disease) (Unknown) Heavy menses (Unknown) IBS (irritable bowel syndrome) (1985) Neuropathy Obstructive sleep apnea (Unknown) Painful menstrual periods (Unknown) Restless leg syndrome (2014) Shoulder pain (Unknown) Vertigo (1979) Surgical History History of removal of laparoscopic gastric banding device (2014) Hx of laparoscopic gastric banding (2011) Hx of sinus surgery (2011) 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) Family History Grandmother Cancer Mental health problem Mother Age: 73 Mental health disorder Sister Age: 55 Heart disease Hypertension High cholesterol Mental health problem Asthma COPD (chronic obstructive pulmonary disease) Social History household members: spouse and other Smoking Status: Current every day smoker Tobacco: How many years used: 10 second hand exposure: No alcohol intake: former substance use type: does not use Assessment & Plan Post-op Postoperative Procedures: Procedures Operation Date: 03/31/21 12:15 Actual Procedure Side Surgeon p Medial unicompartmental knee arthroplasty to total knee arthroplasty/revision poss ORIF tibia Left Lillie Murreita MD Postoperative day: 2 Postoperative status: marginal pain control, anemia and other (Marginal progress with ambulation) Postoperative plan: routine post-op care, ambulate and other (Discontinue drain, we will modify her pain medications.) Postoperative plan narrative: We will discontinue the oxycodone. I will add a 4 mg option for oral Dilaudid. We will discontinue the drain. She will continue with physical therapy. She is aware that she likely will be discharged tomorrow. If she has made insufficient progress to be safe at home she will require [facility]. Time Spent With Patient Time with patient: 15-24 minutes Quality VTE Deep Vein Thrombosis/Pulmonary Embolism Present on Admission: No
[2021-04-02] MEDS: ASPIRIN EC 81 MG TABLET PO ×2 (09:21→20:11)
[2021-04-02] MEDS: ACETAMINOPHEN 325 MG TABLET 650 MG PO ×3 (09:21→20:10)
[2021-04-02] MEDS: HYDROMORPHONE 4 MG TABLET PO ×4 (09:21→21:16)
[2021-04-02] MEDS: GABAPENTIN 300 MG CAPSULE PO ×3 (09:22→20:11)
[2021-04-02] MEDS: PROPRANOLOL 10 MG TABLET 20 MG PO ×2 (09:22→20:11)
--- NOTE | 2021-04-02 09:30 | CM.DPC ---
DCP Cont: Patient is interested in home health services. Discussed with patient. She has no preferences on agencies, but unclear as to who would take her [place] insurance. Called [facility], spoke to Thu,and they do not accept. Spoke to Jahaira at [facility] and she indicated that they are capped at their [place]. Spoke to Anna at [facility]. She indicated that she will review, and will not know yet today since her insurance specialists are not here today. She will advocate for patient since she gets a lot of our Medicare patients. P: DCP to continue to follow. Will go ahead and sent the referral to [facility]. Michelle Montemayor RN/Monkey Trainer
--- NOTE | 2021-04-02 11:00 | PT.IPTN ---
Current Diagnoses Displaced fracture of medial condyle of left tibia, initial encounter for closed fracture (03/31/21) Presence of unspecified artificial knee joint (03/31/21) Surgery Performed Operation Date: 03/31/21 12:15 Actual Procedures p Medial unicompartmental knee arthroplasty to total knee arthroplasty/revision poss ORIF tibia(Left) - Lillie Murrieta MD Physical Therapy Treatment Note M2 PT-IP Current Condition Start: 04/01/21 13:08 Freq: NEEDED Status: Active Protocol: Document 04/01/21 10:45 LRN (Rec: 04/01/21 13:36 LRN [id number]) Physical Therapy Current Condition Current Condition Evaluation Date 04/01/21 Treatment Diagnosis Left Total knee revision Onset Date 03/31/21 M3 PT-IP Subjective Start: 04/01/21 13:08 Freq: NEEDED Status: Active Protocol: Document 04/02/21 11:00 AW (Rec: 04/02/21 13:28 AW [id number]) Subjective Physical Therapy Visit Type Type Treatment Note Visit Start Time 10:20 Visit Stop Time 11:00 Total Visit Minutes 40 Notes Pain medication adjusted this AM and pt reports improved pain management Number of CLINICAL DOCUMENTATION NURSE Visits 0 Physical Therapy Visit Comments Patient Comments Improving pain management per pt. Patient Goals Pt goal is to home with home health. Therapy Pain Assessment Pain When Pain Assessed During Mobility Pain Present Pain Present Pain Reported Location Left Knee Intensity 5 Scale Used Numeric (0 - 10) Pain Management Techniques Apply Cold,Timing of Activity with Medications M4 PT-IP Mobility and Gait Start: 04/01/21 13:08 Freq: NEEDED Status: Active Protocol: Document 04/02/21 11:00 AW (Rec: 04/02/21 13:28 AW [id number]) PT-Bed Mobility Assessment Supine to Sit Supine to Sit Contact Guard Assistance Scooting Scooting to Edge of Bed Contact Guard Assistance PT-Transfer Assessment Sit to and From Stand Sit to and from Stand Standby Assistance,Contact Guard Assistance,1 Person Assistance Equipment Transfer Assistive Device Gait Belt,Front Wheeled Walker Orthotic/Prosthetic Devices or Brace: No Transfers Transfer Destination Chair Transfer Technique ambulated with FWW Comments Mobility Comments Pt was lying in bed as PT arrived. BP 122/77 HR 67. After brief supine exercises, pt sat up EOB and used FWW to stand CGA. She walked to the chair set up just outside her room with FWW CGA and transferred with cues to use UEs to control descent. She stood from the chair CGA and used FWW to ambulate 70 feet in the halls with FWW SBA with chair follow. She transferred to the chair SBA and was pushed back in to her room. Pt was positioned with legs elevated, ice packs on her knee, call light and tray table in reach. Gait Assessment Gait Gait Assistance Required: Standby Assistance,Contact Guard Assist Distance (Feet) 70 Able to Maintain Weight Bearing Status Yes During Gait Assistive Devices Assistive Device Gait Belt,Front Wheeled Walker Gait Deviations General Gait Pattern Antalgic,Decreased Stride Length,Decreased Feet Clearance,Flexed Trunk,Step-to Gait Factors Limiting Gait Function Factors Limiting Gait Function Decreased Activity Tolerance, Decreased Strength,Limited Range of Motion,Pain Comments Gait Comments Pt has FWW brought from home but it is wide and tall. Trialed use of standard FWW and pt was more comfortable and better able to recruit her UE muscles for support. Brooke was quite slow but pt was steady with no evidence of imbalance. Stair Climbing Assessment Comments Stair Climbing Comments Not assessed. Pt stated that she has been unable to complete steps at home and typically sits on steps and boosts herself up with BUE to ascend steps at home. PT-Balance Assessment Sitting Balance and Reactions Static Sitting Balance Ability Normal Dynamic Sitting Balance Ability Normal Standing Balance and Reactions Static Standing Balance Ability Good Dynamic Standing Balance Ability Good Device Used FWW M5 PT-IP Objective Assessments Start: 04/01/21 13:08 Freq: NEEDED Status: Active Protocol: Document 04/01/21 10:45 LRN (Rec: 04/01/21 13:36 LRN [id number]) Orientation Orientation/Cognition Level of Alertness Alert Orientation Name,Situation Language Function Ability No Deficits Noted Safety Awareness Understands Safety Issues Memory Description No Deficits Noted Gross Range of Motion Upper Extremity ROM Assessment Within Functional Limits Lower Extremity ROM Assessment Right Impaired Impairments L knee AROM in supine: ~10-45 deg's L knee AROM in sitting: ~20-75 deg's Strength Upper Extremity Strength Assessment Within Functional Limits Lower Extremity Strength Assessment Left Impaired Hip L hip generally 3-/5 Knee L knee generally 2+/5 Sensation Assessment Comments Sensation Comments Unable to assess L knee due to bandaging. M6 PT-IP Treatment Start: 04/01/21 13:08 Freq: NEEDED Status: Active Protocol: Document 04/02/21 11:00 AW (Rec: 04/02/21 13:28 AW [id number]) Physical Therapy Treatment Exercises Exercises Ankle Pumps,Quad Sets,Heel Slides,Passive Knee Extension Hang,Seated Knee Flexion/ Extension Education Education Provided Weight Bearing Status,Post-Op Packet,Safety Other Treatments Other Treatment Performed Emphasized importance of ROM exercises in early phases of rehab. Also encouraged pt to ice as much as possible to decrease swelling and pain. M7 PT-IP Assessment and Plan Start: 04/01/21 13:08 Freq: NEEDED Status: Active Protocol: Document 04/02/21 11:00 AW (Rec: 04/02/21 13:28 AW [id number]) PT Summary Assessment and Plan Summary Progress Towards Goals Progressing Toward Goals,Slow Progress due to Pain Assessment Summary Pt completed ther ex with ROM emphasis and was able to ambulate in the halls with FWW this session. She did better with more appropriately-sized FWW and PT does recommend smaller size for home. Pt is progressing and will likely be safe to discharge home with assist when medically cleared. Goals Bed Mobility Goal Independent Transfer Goal Independent Gait Goal Independent,Front Wheel Walker Gait Distance 50' Other Goals Stairs with SBA>Carley of 1 with railing on L side ascending, steps. Days to Meet Goals 3 Frequency of Treatment Frequency Of Treatment Twice a Day Treatment Plan Physical Therapy Treatment Plan Bed Mobility Training,Transfer Training,Gait Training, Therapeutic Exercise,Post Op Education,Discharge Planning, Hot or Cold Pack Other Recommendations and Next Treatment Stair ambulation training. Focus Weight Bearing Status Weight Bearing Status Weight Bear as Tolerated Recommendations To Nursing Amount of Assist Needed Standby Assistance Discharge Recommendations PT Discharge Recommendations Home with Assistance, Outpatient PT Other Discharge Recommendations HH at first due to pt's inability to get to outpatient Transportation Needs at Discharge Private Vehicle
[2021-04-02 11:19] VITALS: BP 121/81; PULSE 61; RESP 16; TEMP 36.1; O2SAT 99
[2021-04-02] MEDS: hydrOXYzine pamoate 25 MG CAPSULE 50 MG PO ×2 (11:33→20:12)
--- NOTE | 2021-04-02 14:02 | PT.IPTN ---
Current Diagnoses Displaced fracture of medial condyle of left tibia, initial encounter for closed fracture (03/31/21) Presence of unspecified artificial knee joint (03/31/21) Surgery Performed Operation Date: 03/31/21 12:15 Actual Procedures p Medial unicompartmental knee arthroplasty to total knee arthroplasty/revision poss ORIF tibia(Left) - Lillie Murrieta MD Physical Therapy Treatment Note M2 PT-IP Current Condition Start: 04/01/21 13:08 Freq: NEEDED Status: Active Protocol: Document 04/01/21 10:45 LRN (Rec: 04/01/21 13:36 LRN [id number]) Physical Therapy Current Condition Current Condition Evaluation Date 04/01/21 Treatment Diagnosis Left Total knee revision Onset Date 03/31/21 M3 PT-IP Subjective Start: 04/01/21 13:08 Freq: NEEDED Status: Active Protocol: Document 04/02/21 14:02 AW (Rec: 04/02/21 14:55 AW [id number]) Subjective Physical Therapy Visit Type Type Treatment Note Visit Start Time 13:44 Visit Stop Time 14:02 Total Visit Minutes 18 Number of TOBACCO STRIPPER HAND Visits 0 Physical Therapy Visit Comments Patient Comments I must have overdone it this morning. Therapy Pain Assessment Pain When Pain Assessed During Mobility Pain Present Pain Present Pain Reported Location Left Knee Intensity 8 Scale Used Numeric (0 - 10) Pain Management Techniques Apply Cold,Timing of Activity with Medications M4 PT-IP Mobility and Gait Start: 04/01/21 13:08 Freq: NEEDED Status: Active Protocol: Document 04/02/21 14:02 AW (Rec: 04/02/21 14:55 AW [id number]) PT-Transfer Assessment Sit to and From Stand Sit to and from Stand Standby Assistance,Contact Guard Assistance,1 Person Assistance Equipment Transfer Assistive Device Gait Belt,Front Wheeled Walker Orthotic/Prosthetic Devices or Brace: No Transfers Transfer Destination Wheelchair Transfer Ability Level of Assist Contact Guard Assistance Comments Mobility Comments Pt was using FWW and approaching the door to her room using FWW with her spouse behind her as PT arrived. Pt transferred to w/c SBA and agreed to trial stairs. PT propelled w/c to therapy stairs. Pt stated she has fear of heights and can not practice stairs near the balcony overlooking lower level. She agreed to work on the stairs on ground level. See stair assessment below. Gait Assessment Gait Gait Assistance Required: Standby Assistance,Contact Guard Assist Distance (Feet) 10 Able to Maintain Weight Bearing Status Yes During Gait Assistive Devices Assistive Device Gait Belt,Front Wheeled Walker Orthotic/Prosthetic Devices or Brace: No Gait Deviations General Gait Pattern Antalgic,Decreased Stride Length,Decreased Feet Clearance,Flexed Trunk,Step-to Gait Comments Gait Comments Steps taken to and from w/c during stair training. Stair Climbing Assessment Evaluation Level of Assist On Stairs Moderate Assistance,1 Person Assistance Devices Stair Climbing Assistive Devices Straight Cane,Left Railing Technique/Endurance Stair Climbing Direction Ascend and Descend Stair Climbing Technique Step to Step Number of Steps Climbed 1 Stair Climbing Set # Repetitions (reps) 1 Comments Stair Climbing Comments At 1st level stairs near elevator: Pt used left rail and SPC held in right hand to ascend leading with RLE mod A x 1. She complained of intense pain after one step and declined further stair training. Pt was instructed to step down backward leading with LLE. She backed up to the w/c and sat CGA. Pt's spouse was present and attentive but did not provide any hand-on assist at this treatment. M5 PT-IP Objective Assessments Start: 04/01/21 13:08 Freq: NEEDED Status: Active Protocol: Document 04/01/21 10:45 LRN (Rec: 04/01/21 13:36 LRN [id number]) Orientation Orientation/Cognition Level of Alertness Alert Orientation Name,Situation Language Function Ability No Deficits Noted Safety Awareness Understands Safety Issues Memory Description No Deficits Noted Gross Range of Motion Upper Extremity ROM Assessment Within Functional Limits Lower Extremity ROM Assessment Right Impaired Impairments L knee AROM in supine: ~10-45 deg's L knee AROM in sitting: ~20-75 deg's Strength Upper Extremity Strength Assessment Within Functional Limits Lower Extremity Strength Assessment Left Impaired Hip L hip generally 3-/5 Knee L knee generally 2+/5 Sensation Assessment Comments Sensation Comments Unable to assess L knee due to bandaging. M6 PT-IP Treatment Start: 04/01/21 13:08 Freq: NEEDED Status: Active Protocol: Document 04/02/21 14:02 AW (Rec: 04/02/21 14:55 AW [id number]) Physical Therapy Treatment Education Education Provided Weight Bearing Status,Safety Other Treatments Other Treatment Performed Pt's spouse was present and attentive but did not provide any hands-on assist at this time. M7 PT-IP Assessment and Plan Start: 04/01/21 13:08 Freq: NEEDED Status: Active Protocol: Document 04/02/21 14:02 AW (Rec: 04/02/21 14:55 AW [id number]) PT Summary Assessment and Plan Summary Progress Towards Goals Progressing Toward Goals,Slow Progress due to Pain Assessment Summary Pt attempted stair navigation using left rail ascending and SPC. She completed one step mod A x 1 and max cues. Her spouse was present and attentive. Pt unable to complete more stairs due to complaint of increased pain. Discussed further caregiver training with pt's spouse who states he will be at work all day tomorrow and may not be able to potato picker pt until 5:00 p.m. or later. Pt will be safe to discharge home with assist once medically stable. Goals Bed Mobility Goal Independent Transfer Goal Independent Gait Goal Independent,Front Wheel Walker Gait Distance 50' Other Goals Stairs with SBA>Carley of 1 with railing on L side ascending, steps. Days to Meet Goals 3 Frequency of Treatment Frequency Of Treatment Twice a Day Treatment Plan Physical Therapy Treatment Plan Bed Mobility Training,Transfer Training,Gait Training, Therapeutic Exercise,Post Op Education,Discharge Planning, Hot or Cold Pack Other Recommendations and Next Treatment Stair ambulation training; Focus involve spouse (or another caregiver) in stair training as able Weight Bearing Status Weight Bearing Status Weight Bear as Tolerated Recommendations To Nursing Amount of Assist Needed 1 Person Assist Discharge Recommendations PT Discharge Recommendations Home with Assistance, Outpatient PT Other Discharge Recommendations HH at first due to pt's inability to get to outpatient Transportation Needs at Discharge Private Vehicle
[2021-04-02 16:22] VITALS: BP 105/69; PULSE 65; RESP 16; TEMP 36.2; O2SAT 97
[2021-04-02] MEDS: risperiDONE 1 MG TABLET 0.5 MG PO (20:12)
[2021-04-02] MEDS: SODIUM CHLORIDE 0.9% FLUSH 10 ML IV (20:12)
[2021-04-02] MEDS: ESCITALOPRAM 10 MG TABLET 20 MG PO (20:12)
[2021-04-02 20:31] VITALS: BP 117/78; PULSE 81; RESP 21; TEMP 36.9; O2SAT 95
[2021-04-03 00:27] VITALS: BP 120/82; PULSE 85; RESP 20; TEMP 36.7; O2SAT 98
[2021-04-03] MEDS: IBUPROFEN 400 MG TABLET PO ×4 (01:12→12:54)
[2021-04-03] MEDS: HYDROMORPHONE 4 MG TABLET PO ×4 (01:13→12:54)
--- NOTE | 2021-04-03 07:33 | P.DS_ITS ---
History of Present Illness History of Present Illness Date Patient Seen: 04/03/21 Time Patient Seen: 07:34 Chief complaint: Left knee pain s/p left TKA revision Narrative: The patient is complaining of moderate left knee pain this morning. She notes that the Dilaudid 4 mg orally is helping significantly with her pain. She was taking 2 mg of Dilaudid prior to her unicompartmental medial knee arthroplasty fracture. Her original surgery was on 03/07/2021. She denies any fevers, chills, night sweats. No nausea or vomiting. Overall she is feeling better and like to be discharged home today with home health. Discharge Providers Provider Date of admission: 03/31/21 10:16 Discharge Date: 04/03/21 Primary care physician: Barry Em MD Consults: 03/31/21 10:13 Consult to Anesthesiology Routine Comment: Consulting Provider: Anesthesiologist Reason for consultation: Regional block for post operative pain control 03/31/21 11:02 Consult to Respiratory Therapy Evaluate & Treat Comment: Physician Instructions: Evaluate and treat 03/31/21 17:47 Consult to Discharge Planning Routine Comment: Consult to Physical Therapy Evaluate & Treat Comment: Physician Instructions: postop TKA protocol Consult to Respiratory Therapy Evaluate & Treat Comment: Physician Instructions: Evaluate and treat Discharge provider: Kourtney Barbour PA-C Summary Hospital Course Discharge Diagnosis: - left knee uni replacement with new medial tibial plateau fracture -osteoperosis Hospital Course: Date of procedure: 03/31/21 Time of procedure: 12:40 Procedure & Clinicians Procedure: A left total knee revision with revision of all components bone grafting of the medial tibial plateau fracture Same procedure as scheduled: Yes Indications: S a 50-year-old female with a known history of osteoporosis who unfortunately likely hyperextended her knee and developed severe worsening left knee tibial plateau pain. X-ray showed evidence of a tibial plateau fracture. there was gross displacement of the medial tibial component. And a comminuted tibial plateau fracture. [place] the was felt that the most appropriate revision plan was for revision of unicompartment to try compartment arthroplasty with possible ORIF of the medial tibial plateau. Surgeon: Lillie Murrieta Exterior Interior Specialist: Kourtney Barbour Anesthesia Type: General and Spinal Operative Notes Findings: grossly displaced medial tibial plateau fracture. There was bone that was adherent to the underlying component but severe softening of the medial tibial plateau. There was also a small fragment posteriorly suggestive of a possible PCL injury. She had marked softening of her bone. There was adequate fixation with a cemented total knee arthroplasty with a medial tibial augment and a posterior medial femoral augment. Very soft bone both in the tibia and in the femur especially medially. Adequate stability and full range of motion. Closure Type: primary Specimen(s): none sent Prosthetic devices, grafts, tissues, transplants, or devices: Mur[facility]eta [facility] revision knee size 4 femur, +5 posterior augment, femoral stem was 10 x 160. On the medial tibial plateau I used a 10 mm augment and a size 2 tibial component, there was also a 10 mm by 160 femoral stem. the tibia looked best covered with a 2 mm offset. The patella was 35 by 7-1/2. The implant poly was 12 mm high flexion. Applied: drain(s) Estimated Blood Loss (mL): 250 Blood products transfused: none Tourniquet time (min): 144 Slow progress due to pain control issues. Partial weight-bearing, up to 100 lb due to previous fracture. Status at Discharge Cognitive/behavioral status at discharge: oriented Functional status at discharge: uses cane/walker Overall status at discharge: patient is progressing back to baseline Exam Vital Signs (past 8 hours): - 04/03/21 00:27 Temperature 98.0 F Pulse Rate 85 Respiratory Rate 20 Blood Pressure 120/82 Pulse Oximetry 98 Oxygen Delivery Method Room Air Oxygen Flow Rate 0 Narrative Exam Narrative: Pleasant 50-year-old female, resting comfortably in bed, no acute distress. I had dressing/Jonny wrap demonstrates at well-demarcated area of dried blood that is not spread beyond the demarcations. This sits directly over the drain site, which was pulled yesterday. The actual knee incision dressing is clean, dry, intact. The gurdeep pump is working. Bilateral lower extremity motor functions are grossly intact. Sensation is grossly intact to light touch in bilateral lower extremities. Bilateral calves are soft, nontender to palpation. Objective Labs Result Diagrams: 04/01/21 05:17 [facility] Medical History Allergy (Unknown) Anxiety (1989) Chronic back pain (Unknown) Chronic venous insufficiency Foot pain (2003) GERD (gastroesophageal reflux disease) (Unknown) Heavy menses (Unknown) IBS (irritable bowel syndrome) (1985) Neuropathy Obstructive sleep apnea (Unknown) Painful menstrual periods (Unknown) Restless leg syndrome (2015) Shoulder pain (Unknown) Vertigo (1979) Surgical History History of removal of laparoscopic gastric banding device (2014) Hx of laparoscopic gastric banding (2011) Hx of sinus surgery (2011) 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) Family History Grandmother Cancer Mental health problem Mother Age: 73 Mental health disorder Sister Age: 55 Heart disease Hypertension High cholesterol Mental health problem Asthma COPD (chronic obstructive pulmonary disease) Social History household members: spouse and other Smoking Status: Current every day smoker Tobacco: How many years used: 10 second hand exposure: No alcohol intake: former substance use type: does not use Discharge Assessment & Plan Assessment and Plan Assessment: -Stable status post left total knee arthroplasty revision due to previous right medial unicompartmental knee arthroplasty fracture in the proximal aspect of the tibia -marginal pain control -osteoporosis Plan of Treatment: -mobilize with PT. partial weight-bearing as tolerated with front wheel walker, up to 100 lb -continue with current pain regimen and DVT prophylaxis -discussed preliminary treatment for her osteoporosis including calcium and vitamin-D supplements and weight-bearing exercises. Encouraged follow-up with her primary care for further workup and possible referral to endocrinology -planning on DC home today once cleared by PT. She will need home health as she has not been able to complete stairs yet due to marginal pain control and limited weight-bearing status Discharge Plan Discharge Plan Patient Disposition: Home Discharge orders & Medications Prescriptions: New hydroxyzine pamoate 25 mg Capsule 50 mg PO BID PRN (Reason: anxiety, spasms, pain, nausea) Qty: 60 RF: 0 acetaminophen 500 mg capsule 500 mg PO Q4H MDD Max 6 tabs per day PRN (Reason: fever or pain) Qty: 90 RF: 0 aspirin 81 mg Tablet,Delayed Release (Dr/Ec) 81 mg PO BID PRN (Reason: X6 weeks to prevent blood clots) Qty: 90 RF: 0 docusate sodium 100 mg Capsule 100 mg PO BID PRN (Reason: Constipation from narcotic pain meds) Qty: 30 RF: 0 hydromorphone 4 mg Tablet 4 mg PO Q4HR PRN (Reason: Pain, Severe (7-10)) Qty: 42 RF: 0 ibuprofen 400 mg Tablet 400 mg PO Q4HR MDD Max 2400 mg per day PRN (Reason: Pain/inflammation) Qty: 90 RF: 0 Continued escitalopram oxalate 20 mg tablet 20 mg PO DAILY Qty: 90 RF: 3 propranolol 20 mg tablet 20 mg PO BID Qty: 180 RF: 1 clonazepam 0.5 mg tablet 0.5 mg PO BID PRN (Reason: Anxiety) RF: 0 albuterol sulfate 90 mcg/actuation aerosol powdr breath activated 2 puff INHALATION Q4H PRN (Reason: shortness of breath or wheezing) Qty: 1 RF: 0 risperidone 0.5 mg tablet See Rx Instructions PO DAILY Qty: 90 RF: 1 ondansetron HCl 8 mg tablet 8 mg PO BID-TID PRN (Reason: nausea and vomiting) Qty: 180 RF: 0 gabapentin 300 mg capsule 300 mg PO TID Qty: 90 RF: 0 hydroxyzine HCl 50 mg tablet 50 mg PO BID PRN (Reason: anxiety) Qty: 180 RF: 1 risperidone 0.5 mg tablet 0.5 mg PO DIRECTED RF: 0 Discontinued hydromorphone [Dilaudid] 2 mg tablet 2 mg PO Q4-6H PRN (Reason: Pain) RF: 0 naproxen 500 mg tablet 500 mg PO BID RF: 0 Follow up/Referrals: Barry Em MD [Primary Care Provider] - Lillie Murrieta MD [Physician] - (10-14 days for postoperative visit) Diet/Activity/Treatments Diet: Diet as Tolerated and Regular Other treatments: Medications: -Aspirin 81mg twice daily x6 weeks to prevent blood clots. -OTC Tylenol 500 mg 1 tablet every 4 hours as needed for pain/fever. Max 6 tablets per day. -Ibuprofen 400 mg 1 tablet every 4 hours as needed for pain/inflammation. Max 2,400 mg per day. -Dilaudid 4mg take 1 tablet every 4 hours as needed for moderate-severe pain (narcotic pain medication). -Vistaril (hydroxyine) 25mg 1 tab every 4 hours as needed for spasms/pain/nausea. -As needed medications: -Ducolax and /or MiraLax as needed for constipation from narcotic pain medications. -Pepcid AC as needed for stomach upset (usually from aspirin or ibuprofen). Dressing/Wound care: -Remove the Jonny wrap 48 hours after surgery. -Keep Gurdeep dressing in place until postoperative follow-up office visit. -Okay to shower. Keep wound out of direct water stream. No soaking or s ubmerging until all the scabs fall off (approximately 6 weeks). -Please call the office if dressing becomes wet, soiled, or saturated, or if Gurdeep pump stops working. Activities: -Partial weight-bearing; up to 100lbs. Use front wheeled walker, and progress to cane when safe. -Continue with home exercises as directed by your physical therapist. -Elevate ?toes above the nose if you have significant swelling in your lower leg. (A wedge pillow is easiest.) -Ice your incision as needed for pain/inflammation/swelling. Protect your skin with a folded pillowcase. Follow-up: -Follow-up with your surgeon or PA in the office in 10-14 days after surgery. -Follow-up with your surgeon 6 weeks postoperatively. Call the office if you have chest pain, shortness of breath, significant swelling that will not resolve with elevating, fever over 101?, significantly worsening pain. [facility]: [phone] Skin/Wound/Dressing Care Report to your healthcare provider any signs of infection, such as:: chills, fever, night sweats, unusual drainage and unusual redness Visit Report/Discharge Packet Instructions: DI for Knee Replacement, DI for Prescription Opioid Use Stand Alone Forms: Surgery Discharge Discharge Data Primary Care Provider: Barry Em [facility]TE Deep Vein Thrombosis/Pulmonary Embolism Present on Admission: No
[2021-04-03 08:30] VITALS: BP 109/75; PULSE 74; RESP 16; TEMP 36.6; O2SAT 93
--- NOTE | 2021-04-03 08:31 | CM.DPC ---
Addendum entered by ROMARIO Steele 04/03/21 10:34: ADD: Return call from [facility] confirming they can accept pt for HH services under her [facility]. Per PT, requesting FWW orders for home use. JUANJO placed orders. Per director of patient financial services, pt's spouse getting off work early from his new job to provide transport and assist with getting pt into the house and up 5-6 steps around 1400 today. BF Original Note: DCP Discharge Home with HH Per Ortho PA, pt medically stable to d/c home today and agreeable with HH. F2F already completed and signed. JUANJO called [facility] with update on pt d/c home today and she confirms that she is advocating with their billing dept to accept pt's [facility] for services as we haven't taken a [facility] pt from [facility] in a while. She is agreeable with F2F, orders, and d/c summary to be faxed and she will finalize the acceptance of pt with her team. EUNICE Hood kindly faxing d/c packet to [facility] for review. JUANJO updated RN and no identified barriers to discharge. Plan: Patient to d/c home today via spouse POV and new [facility] referral to follow after d/c. ROMARIO Steele
[2021-04-03 08:52] VITALS: PULSE 81; RESP 12; O2SAT 100
--- NOTE | 2021-04-03 09:06 | CM.DPNOTE ---
Addendum entered by Sana Ordonez 04/04/21 07:34: Faxed to [facility]. Sana Ordonez CM Asst. Original Note: Faxed dc summary, order and face to face per Page and received fax conf.
[2021-04-03] MEDS: GABAPENTIN 300 MG CAPSULE PO (09:17)
[2021-04-03] MEDS: PROPRANOLOL 10 MG TABLET 20 MG PO (09:17)
[2021-04-03] MEDS: ACETAMINOPHEN 325 MG TABLET 650 MG PO (09:17)
[2021-04-03] MEDS: SODIUM CHLORIDE 0.9% FLUSH 10 ML IV (09:17)
[2021-04-03] MEDS: ASPIRIN EC 81 MG TABLET PO (09:17)
--- NOTE | 2021-04-03 10:03 | PT.IPTN ---
Current Diagnoses Displaced fracture of medial condyle of left tibia, initial encounter for closed fracture (03/31/21) Presence of unspecified artificial knee joint (03/31/21) Surgery Performed Operation Date: 03/31/21 12:15 Actual Procedures p Medial unicompartmental knee arthroplasty to total knee arthroplasty/revision poss ORIF tibia(Left) - Lillie Murrieta MD Physical Therapy Treatment Note M2 PT-IP Current Condition Start: 04/01/21 13:08 Freq: NEEDED Status: Active Protocol: Document 04/01/21 10:45 LRN (Rec: 04/01/21 13:36 LRN [id number]) Physical Therapy Current Condition Current Condition Evaluation Date 04/01/21 Treatment Diagnosis Left Total knee revision Onset Date 03/31/21 M3 PT-IP Subjective Start: 04/01/21 13:08 Freq: NEEDED Status: Active Protocol: Document 04/03/21 09:32 KS (Rec: 04/03/21 10:23 KS [id number]) Subjective Physical Therapy Visit Type Type Treatment Note Visit Start Time 09:32 Visit Stop Time 10:03 Total Visit Minutes 31 Number of INDUSTRIAL PIPEFITTER JOURNEYMAN Visits 1 Physical Therapy Visit Comments Patient Comments Pt agreeable to work w/ therapy. Therapy Pain Assessment Pain When Pain Assessed During Mobility Pain Present Pain Present Pain Reported Location Left Knee Intensity 5 Scale Used Numeric (0 - 10) Pain Behaviors Facial Grimacing,Guarding Pain Management Techniques Apply Cold,Re-positioning, Timing of Activity with Medications M4 PT-IP Mobility and Gait Start: 04/01/21 13:08 Freq: NEEDED Status: Active Protocol: Document 04/03/21 09:32 KS (Rec: 04/03/21 10:23 KS [id number]) PT-Bed Mobility Assessment Supine to Sit Supine to Sit Standby Assistance Sit to Supine Sit to Supine Standby Assistance Scooting Scooting to Edge of Bed Standby Assistance PT-Transfer Assessment Sit to and From Stand Sit to and from Stand Standby Assistance,1 Person Assistance,Use of Upper Extremities Equipment Transfer Assistive Device Gait Belt,Front Wheeled Walker Orthotic/Prosthetic Devices or Brace: No Transfers Transfer Destination Bed Transfer Technique ambulated with FWW Transfer Ability Level of Assist Standby Assistance,Contact Guard Assistance,1 Person Assistance,Use of Upper Extremities Comments Mobility Comments Pt in bed upon arrival from therapy. Explained 100# PWB status and reveiwed LE exercises to promote bloodflow and strengthening. Pt reports she has been completing some exercises in bed. Pt SBA for sup<>sit and scooting EOB from flat bed. Pt performed weight shifting w/ FWW w/ cues to avoid >100#. Pt then ambulated ~60 ft w/ FWW PWB SBA. Pt demonstrated good use of FWW and was able to maintain PWB. Pt returned to room and bed SBA and left in bed w/ SCDs on and all needs in reach. Gait Assessment Gait Gait Assistance Required: Standby Assistance Distance (Feet) 60 Able to Maintain Weight Bearing Status Yes During Gait Assistive Devices Assistive Device Gait Belt,Front Wheeled Walker Orthotic/Prosthetic Devices or Brace: No Gait Deviations General Gait Pattern Antalgic,Decreased Stride Length,Decreased Feet Clearance,Flexed Trunk,Step-to Gait Factors Limiting Gait Function Factors Limiting Gait Function Decreased Activity Tolerance, Decreased Strength,Limited Range of Motion,Pain Comments Gait Comments Please refer to mobilty section for details. Stair Climbing Assessment Comments Stair Climbing Comments Not assessed. Pt plans to do seated bump to ascend stairs at home. PT-Balance Assessment Sitting Balance and Reactions Static Sitting Balance Ability Normal Dynamic Sitting Balance Ability Normal Standing Balance and Reactions Static Standing Balance Ability Good Dynamic Standing Balance Ability Good Device Used FWW M5 PT-IP Objective Assessments Start: 04/01/21 13:08 Freq: NEEDED Status: Active Protocol: Document 04/01/21 10:45 LRN (Rec: 04/01/21 13:36 LRN [id number]) Orientation Orientation/Cognition Level of Alertness Alert Orientation Name,Situation Language Function Ability No Deficits Noted Safety Awareness Understands Safety Issues Memory Description No Deficits Noted Gross Range of Motion Upper Extremity ROM Assessment Within Functional Limits Lower Extremity ROM Assessment Right Impaired Impairments L knee AROM in supine: ~10-45 deg's L knee AROM in sitting: ~20-75 deg's Strength Upper Extremity Strength Assessment Within Functional Limits Lower Extremity Strength Assessment Left Impaired Hip L hip generally 3-/5 Knee L knee generally 2+/5 Sensation Assessment Comments Sensation Comments Unable to assess L knee due to bandaging. M6 PT-IP Treatment Start: 04/01/21 13:08 Freq: NEEDED Status: Active Protocol: Document 04/03/21 09:32 KS (Rec: 04/03/21 10:23 KS [id number]) Physical Therapy Treatment Exercises Exercises Ankle Pumps,Gluteal Sets,Quad Sets,Heel Slides,Seated Knee Flexion/Extension Education Education Provided Weight Bearing Status,Safety Other Treatments Other Treatment Performed Spoke w/ pt regarding mother assisting pt inside, pt states mother unable due to age, weakness, vertigo, and cane use. Pt will need to wait for spouse to assist her. M7 PT-IP Assessment and Plan Start: 04/01/21 13:08 Freq: NEEDED Status: Active Protocol: Document 04/03/21 09:32 KS (Rec: 04/03/21 10:23 KS [id number]) PT Summary Assessment and Plan Potential Rehabilitation Potential Good Status of Condition at Evaluation Evolving Summary Impairments Pain,ROM,Strength,Balance,Gait ,Activity Tolerance Progress Towards Goals Progressing Toward Goals,Slow Progress due to Pain Assessment Summary Pt SBA for all bed mobility, transfers, and ambulation w/ FWW. Pt able to ambulate ~60 ft w/ FWW while maintaing PWB status. Pt will be safe to d/c home w/ spouse to assist and HHPT. Goals Bed Mobility Goal Independent Transfer Goal Independent Gait Goal Independent,Front Wheel Walker Gait Distance 50' Other Goals Stairs with SBA>Carley of 1 with railing on L side ascending, steps. Days to Meet Goals 3 Frequency of Treatment Frequency Of Treatment Twice a Day Treatment Plan Physical Therapy Treatment Plan Bed Mobility Training,Transfer Training,Gait Training, Therapeutic Exercise,Post Op Education,Discharge Planning, Hot or Cold Pack Other Recommendations and Next Treatment Stair ambulation training; Focus involve spouse (or another caregiver) in stair training as able Weight Bearing Status Weight Bearing Status Partial Weight Bearing Allowed Weight Bearing Amount (enter % LLE PWB 100# or #) (%) Recommendations To Nursing Amount of Assist Needed 1 Person Assist Discharge Recommendations PT Discharge Recommendations Home with Assistance,Home Health,Outpatient PT Other Discharge Recommendations [facility] due to pt's inability to get to outpatient Transportation Needs at Discharge Private Vehicle
--- NOTE | 2021-04-03 13:54 | PT.IPTN ---
Current Diagnoses Displaced fracture of medial condyle of left tibia, initial encounter for closed fracture (03/31/21) Presence of unspecified artificial knee joint (03/31/21) Surgery Performed Operation Date: 03/31/21 12:15 Actual Procedures p Medial unicompartmental knee arthroplasty to total knee arthroplasty/revision poss ORIF tibia(Left) - Lillie Murrieta MD Physical Therapy Treatment Note M2 PT-IP Current Condition Start: 04/01/21 13:08 Freq: NEEDED Status: Active Protocol: Document 04/01/21 10:45 LRN (Rec: 04/01/21 13:36 LRN [id number]) Physical Therapy Current Condition Current Condition Evaluation Date 04/01/21 Treatment Diagnosis Left Total knee revision Onset Date 03/31/21 M3 PT-IP Subjective Start: 04/01/21 13:08 Freq: NEEDED Status: Active Protocol: Document 04/03/21 13:30 KS (Rec: 04/03/21 14:06 KS [id number]) Subjective Physical Therapy Visit Type Type Treatment Note Visit Start Time 13:30 Visit Stop Time 13:54 Total Visit Minutes 24 Number of LIQUID WASTE TREATMENT PLANT OPERATOR Visits 2 Physical Therapy Visit Comments Patient Comments Pt agreeable to work w/ therapy. M4 PT-IP Mobility and Gait Start: 04/01/21 13:08 Freq: NEEDED Status: Active Protocol: Document 04/03/21 13:30 KS (Rec: 04/03/21 14:06 KS [id number]) PT-Bed Mobility Assessment Supine to Sit Supine to Sit Standby Assistance Sit to Supine Sit to Supine Standby Assistance Scooting Scooting to Edge of Bed Standby Assistance PT-Transfer Assessment Sit to and From Stand Sit to and from Stand Standby Assistance,1 Person Assistance,Use of Upper Extremities Equipment Transfer Assistive Device Gait Belt,Front Wheeled Walker Orthotic/Prosthetic Devices or Brace: No Transfers Transfer Destination Bed Transfer Technique ambulated with FWW Transfer Ability Level of Assist Standby Assistance,Contact Guard Assistance,1 Person Assistance,Use of Upper Extremities Comments Mobility Comments Pt in bed upon arrival from therapy and reported stomach ache following lunch but agreed to ambulate. Pt SBA for all mobility and ambulation, trialed and fitted and dispensed FWW for home use. Pt able to ambulate ~50 ft but then reported increase in pain and wanted to rest. Pt states she feels safe to go home w/ to assist and HHPT which she has scheduled to begin on Saturday. Gait Assessment Gait Gait Assistance Required: Standby Assistance Distance (Feet) 50 Able to Maintain Weight Bearing Status Yes During Gait Assistive Devices Assistive Device Gait Belt,Front Wheeled Walker Orthotic/Prosthetic Devices or Brace: No Gait Deviations General Gait Pattern Antalgic,Decreased Stride Length,Decreased Feet Clearance,Flexed Trunk,Step-to Gait Factors Limiting Gait Function Factors Limiting Gait Function Decreased Activity Tolerance, Decreased Strength,Limited Range of Motion,Pain Comments Gait Comments Pt ambulated ~50 ft w/ FWW SBA and able to maintain PWG status. Stair Climbing Assessment Comments Stair Climbing Comments Not assessed. Pt plans to do seated bump to ascend stairs at home and does not want to practice prior to d/c. PT-Balance Assessment Sitting Balance and Reactions Static Sitting Balance Ability Normal Dynamic Sitting Balance Ability Normal Standing Balance and Reactions Static Standing Balance Ability Good Dynamic Standing Balance Ability Good Device Used FWW M5 PT-IP Objective Assessments Start: 04/01/21 13:08 Freq: NEEDED Status: Active Protocol: Document 04/01/21 10:45 LRN (Rec: 04/01/21 13:36 LRN [id number]) Orientation Orientation/Cognition Level of Alertness Alert Orientation Name,Situation Language Function Ability No Deficits Noted Safety Awareness Understands Safety Issues Memory Description No Deficits Noted Gross Range of Motion Upper Extremity ROM Assessment Within Functional Limits Lower Extremity ROM Assessment Right Impaired Impairments L knee AROM in supine: ~10-45 deg's L knee AROM in sitting: ~20-75 deg's Strength Upper Extremity Strength Assessment Within Functional Limits Lower Extremity Strength Assessment Left Impaired Hip L hip generally 3-/5 Knee L knee generally 2+/5 Sensation Assessment Comments Sensation Comments Unable to assess L knee due to bandaging. M6 PT-IP Treatment Start: 04/01/21 13:08 Freq: NEEDED Status: Active Protocol: Document 04/03/21 13:30 KS (Rec: 04/03/21 14:06 KS [id number]) Physical Therapy Treatment Exercises Exercises Ankle Pumps Education Education Provided Weight Bearing Status,Safety Other Treatments Other Treatment Performed Discussed safety w/ ambulation PWB around house, getting into car, and shower. Pt agrees to sponge bath for now. Reveiwed exercises which pt agrees to complete at home. Dispensed FWW. M7 PT-IP Assessment and Plan Start: 04/01/21 13:08 Freq: NEEDED Status: Active Protocol: Document 04/03/21 13:30 KS (Rec: 04/03/21 14:06 KS [id number]) PT Summary Assessment and Plan Potential Rehabilitation Potential Good Status of Condition at Evaluation Evolving Summary Impairments Pain,ROM,Strength,Balance,Gait ,Activity Tolerance Progress Towards Goals Progressing Toward Goals,Slow Progress due to Pain Assessment Summary Pt continues to be SBA for all bed mobility, transfers, and ambulation w/ FWW. Pt limited by pain, but able to maintain PWB 100# w/ during ambulation w/ FWW. Refused stair training and stated she feels safe getting help from at home. Pt will benefit from HHPT and then outpatient PT to regain strength and ROM and improve functional mobility. Goals Bed Mobility Goal Independent Transfer Goal Independent Gait Goal Independent,Front Wheel Walker Gait Distance 50' Other Goals Stairs with SBA>Carley of 1 with railing on L side ascending, steps. Days to Meet Goals 3 Frequency of Treatment Frequency Of Treatment Twice a Day Treatment Plan Physical Therapy Treatment Plan Bed Mobility Training,Transfer Training,Gait Training, Therapeutic Exercise,Post Op Education,Discharge Planning, Hot or Cold Pack Other Recommendations and Next Treatment Stair ambulation training; Focus involve spouse (or another caregiver) in stair training as able Weight Bearing Status Weight Bearing Status Partial Weight Bearing Allowed Weight Bearing Amount (enter % LLE PWB 100# or #) (%) Recommendations To Nursing Amount of Assist Needed 1 Person Assist Discharge Recommendations PT Discharge Recommendations Home with Assistance,Home Health,Outpatient PT Other Discharge Recommendations [facility] due to pt's inability to get to outpatient Transportation Needs at Discharge Private Vehicle
--- NOTE | 2021-04-03 15:46 | PC.NURSE ---
Discharge Note Patient A&O, VSS, RA no complaints of pain/discomfort. Discharge packet reviewed with patient all questions/concerns addressed. PIV discontinued. Patient reminded to warehouse picker prescriptions on way home. All belongings packed and given to patient along with discharge packet. at bedside and patient taken down wheelchair by BRAKE HOLDER to POV.
== END 2021-04-03 15:30 | disposition home health service (06) | DRG 302 ==
LOC: OR 10:19 → AC 10:20
PROVIDERS: Admitting Provider Orthopaedic Surgery; Family Provider Family Medicine; PCP Family Medicine; Referring Provider Orthopaedic Surgery; Visit Provider Orthopaedic Surgery
PROC: 0SRD0J9 Replacement of Left Knee Joint with Synthetic Substitute, Cemented, Open Approach (ICD-10-PCS; principal; 2021-03-31 12:15)
DX: M80.062A Age-related osteoporosis with current pathological fracture, left lower leg, initial encounter for fracture (principal); M97.12XA Periprosthetic fracture around internal prosthetic left knee joint, initial encounter; M87.9 Osteonecrosis, unspecified; D64.9 Anemia, unspecified; G89.18 Other acute postprocedural pain; M83.9 Adult osteomalacia, unspecified; F17.200 Nicotine dependence, unspecified, uncomplicated; F32.A Depression, unspecified; F41.9 Anxiety disorder, unspecified; Z96.652 Presence of left artificial knee joint; Z20.822 Contact with and (suspected) exposure to COVID-19
CPT/HCPCS: 36415; 64450; 73560; 85014; 85018; 87070; 87075; 87205; 87801; 97110; 97116; 97162; 97530; C1776; C9290; J0171; J0690; J1170; J2060; J2250; J3010

== ENCOUNTER 2021-07-31 15:59 | Inpatient (IN) | payer OTHER, MEDICAID, SELFPAY ==
[2021-03-31 18:42] VITALS: BMI 27.3
[2021-07-31] VITALS (19 sets, daily range): BP systolic 139–174; BP diastolic 87–100; PULSE 103–110; RESP 23–46; TEMP 36.9–37.6; O2SAT 90–97
--- NOTE | 2021-07-31 16:06 | DI.RAD.S_ITS ---
PROCEDURE: XR CHEST 1V INDICATIONS: Suspected sepsis TECHNIQUE: One view of the chest was acquired. COMPARISON: None. FINDINGS: Patchy bilateral airspace opacities in both lungs. No visible pleural effusion or findings of pneumothorax. Normal heart size. IMPRESSION: Patchy bilateral airspace opacities, consistent with infection. Dictated by: Cole Nick M.D. on 07/31/2021 at 17:06 Approved by: Cole Nick M.D. on 07/31/2021 at 17:06
[2021-07-31 16:38] LABS: INR 1.1 (0.9-1.3); Prothrombin Time 12.6 SECONDS (10.1-12.7)
[2021-07-31 16:39] LABS: Add Manual Diff / Slide Review NO; Basophils Absolute Auto 0 /uL (0-100); Basophils Percent Auto 0.2 % (0-2); Eosinophils Absolute Auto 0 /uL (0-450); Hematocrit 37.5 % (36-46); Hemoglobin 12.5 g/dL (12.0-16.0); Lymphocytes Absolute Auto 900 /uL (1100-4500); Lymphocytes Percent Auto 7.6 % (25-40); Mean Corpuscular HGB Conc 33.3 % (30-36); Mean Corpuscular Hemoglobin 28.9 PG (26-34); Mean Corpuscular Volume 86.9 fL (80-100); Monocytes Absolute Auto 700 /uL (0-900); Monocytes Percent Auto 5.9 % (3-14); Neutrophils Absolute Auto 10600 /uL (1500-7000); Neutrophils Percent Auto 86.3 % (50-75); Platelet Count 307 X10^3/uL (150-400); Red Blood Cell Count 4.32 X10^6/uL (4.0-5.2); Red Cell Distribution Width 16.4 % (11.6-14.8); White Blood Cell Count 12.3 X10^3/uL (4.5-11.0)
[2021-07-31 16:40] LABS: PTT Partial Thromboplastin Tim 32 SECONDS (26.4-36.2)
[2021-07-31 16:41] LABS: Lactate (Lactic Acid) 1.1 mmol/L (0.7-2.1)
[2021-07-31 16:42] LABS: Alanine Aminotransferase 27 IU/L (<35); Albumin 3.6 g/dL (3.5-5.0); Albumin Globulin Ratio 1.1 (1.0-2.8); Alkaline Phosphatase 137 U/L (38-126); Aspartate Aminotransferase 53 IU/L (14-36); BUN Creatinine Ratio 28.1 (6-22); Bilirubin Total 0.8 mg/dL (0.2-1.3); Blood Urea Nitrogen 16 mg/dL (7-17); Carbon Dioxide 27 mmol/L (22-32); Chloride 111 mmol/L (98-107); Creatine Kinase 323 U/L (30-135); Estimated Glomerular Filt Rate > 60.0 mL/min (>60); Globulin 3.4 g/dL (1.7-4.1); Glucose 119 mg/dL (70-100); HEMOLYSIS < 15 (0-50); Lipase 98 U/L (23-300); Potassium 2.9 mmol/L (3.4-5.1); Sodium 145 mmol/L (137-145)
[2021-07-31 16:53] LABS: NT-proBNP (BNP-Adult 18+) 1690 pg/mL (<125)
[2021-07-31] MEDS: SODIUM CHLORIDE 0.9% 1,000 ML 1000 ML IV (16:53)
[2021-07-31 16:58] LABS: Appearance Urine UA CLEAR; Bilirubin Urine UA 1+ (NEGATIVE); Color Urine UA YELLOW; Glucose Urine UA NEGATIVE (Negative); Ketones Urine UA 3+ (NEGATIVE); Leukocyte Esterase Urine UA NEGATIVE (NEGATIVE); Nitrite Urine UA NEGATIVE (Negative); Occult Blood Urine UA NEGATIVE (Negative); Protein Urine UA 2+ (Negative); Specific Gravity Urine UA 1.025 (1.000-1.035); Urobilinogen Urine UA 0.2 E.U./dL (0.2)
[2021-07-31 16:58] LABS: Creatine Kinase MB 3.21 ng/mL (<2.37)
[2021-07-31 17:03] LABS: pH Urine UA 6.5 (4.5-8.0)
[2021-07-31 17:04] LABS: Amorphous Sediment Urine 1+; Bacteria Urine None Seen; Granular Casts Urine 0-1/LPF; Hyaline Casts Urine 1-5/LPF; Ictotest Urine Negative (Negative); Mucus Urine 1+ (Negative); RBC Urine None Seen (0-5/HPF); Squamous Epithelial Cell Urine 1-5 /HPF (0-5/HPF); WBC Urine 1-5/HPF (0-5/HPF)
[2021-07-31 17:05] LABS: Culture Indicated Urine Cult Not Indicated
[2021-07-31 17:14] LABS: COVID19 -Nasal RAPID Negative (Negative)
[2021-07-31 17:18] LABS: Troponin I 0.205 ng/mL (0.01-0.034)
[2021-07-31 17:21] LABS: Pregnancy Test Urine Negative (Negative)
--- NOTE | 2021-07-31 18:07 | DI.CT.S_ITS ---
PROCEDURE: CT HEAD/BRAIN WO CON INDICATIONS: Confusion TECHNIQUE: Noncontrast 4.5 mm thick angled axial sections acquired from the foramen magnum to the vertex, with coronal and sagittal reformats. For radiation dose reduction, the following was used: automated exposure control, adjustment of mA and/or kV according to patient size. COMPARISON: None. FINDINGS: Image quality: Excellent. CSF spaces: Basal cisterns are patent. No extra-axial fluid collections. Ventricles are normal in size and shape. Brain: No midline shift. No intracranial masses or hemorrhage. Deshpande-white matter interface is normal. Skull and face: Calvarium and visualized facial bones are intact, without suspicious lesions. Sinuses: Visualized sinuses and mastoids are clear. IMPRESSION: No acute intracranial abnormality. Dictated by: Cole Nick M.D. on 07/31/2021 at 18:46 Approved by: Cole Nick M.D. on 07/31/2021 at 18:47
--- NOTE | 2021-07-31 18:34 | ED_ITS ---
HPI - General Adult General Chief complaint: Altered Mental Status Stated complaint: Confusion Time Seen by Provider: 07/31/21 16:39 Source: EMS Mode of arrival: EMS Limitations: altered mental status History of Present Illness HPI narrative: Patient is a 51-year-old female. Arrived by EMS for evaluation of respiratory distress and altered mental status. Patient is unable to provide any HPI. EMS was called by the patient's mother. It was reported by EMS from the patient's mother that over the past several days her mental status has been declining. EMS reports that they were actually called out of the house several days ago for altered mental status however the patient did not want to come to the ER and she was deemed at that time to be able to make decisions. When EMS arrived they did find the patient in respiratory distress. Hypoxic into the 80s. She improved with oxygen by non-rebreather. Patient has no signs of trauma. Obviously confused. Related Data Home Medications Medication Instructions Recorded Confirmed risperidone 0.5 mg tablet 0.5 mg PO DIRECTED 03/31/21 03/31/21 Previous Rx's Medication Instructions Recorded albuterol sulfate 90 mcg/actuation 2 puff INHALATION Q4H PRN #1 each 12/30/17 breath activated powder inhaler hydroxyzine HCl 50 mg tablet 50 mg PO BID PRN #180 tab 02/07/21 acetaminophen 500 mg capsule 500 mg PO Q4H PRN #90 cap MDD Max 04/03/21 6 tabs per day aspirin 81 mg tablet,delayed 81 mg PO BID PRN #90 tab 04/03/21 release docusate sodium 100 mg capsule 100 mg PO BID PRN #30 cap 04/03/21 hydromorphone 4 mg tablet 4 mg PO Q4HR PRN #42 tab 04/03/21 ibuprofen 400 mg tablet 400 mg PO Q4HR PRN #90 tab MDD Max 04/03/21 2400 mg per day gabapentin 300 mg capsule 300 mg PO TID #90 cap 05/08/21 clonazepam 0.5 mg tablet 0.5 mg PO BID PRN #60 tab 07/17/21 escitalopram oxalate 20 mg tablet 20 mg PO DAILY #90 tab 07/19/21 hydroxyzine pamoate 25 mg capsule 50 mg PO BID PRN #60 cap 07/19/21 ondansetron HCl 8 mg tablet 8 mg PO BID-TID PRN #180 tab 07/26/21 propranolol 20 mg tablet 20 mg PO BID #180 tab 07/27/21 risperidone 0.5 mg tablet See Rx Instructions PO DAILY #90 07/27/21 tab Allergies Allergy/AdvReac Type Severity Reaction Status Date / Time No Known Drug Allergies Allergy Verified 03/31/21 17:48 Review of Systems Review of Systems ROS Unobtainable: Unobtainable due to mental status/LOC Patient History Medical History Allergy (Unknown) Anxiety (1989) Chronic back pain (Unknown) Chronic venous insufficiency Foot pain (2003) GERD (gastroesophageal reflux disease) (Unknown) Heavy menses (Unknown) IBS (irritable bowel syndrome) (1985) Neuropathy Obstructive sleep apnea (Unknown) Painful menstrual periods (Unknown) Restless leg syndrome (2014) Shoulder pain (Unknown) Vertigo (1979) Surgical History History of removal of laparoscopic gastric banding device (2014) Hx of laparoscopic gastric banding (2011) Hx of sinus surgery (2011) 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) Family History Grandmother Cancer Mental health problem Mother Age: 73 Mental health disorder Sister Age: 55 Heart disease Hypertension High cholesterol Mental health problem Asthma COPD (chronic obstructive pulmonary disease) Social History household members: spouse and other Smoking Status: Current every day smoker Tobacco: How many years used: 10 second hand exposure: No alcohol intake: former substance use type: does not use Smoking Status: Current every day smoker tobacco type: cigarettes Substance Use Type: does not use Exam Initial Vital Signs Initial Vital Signs: Vital Signs Temperature 99.1 F 07/31/21 15:59 Pulse Rate 107 H 07/31/21 15:59 Respiratory Rate 28 H 07/31/21 15:59 Blood Pressure 151/87 H 07/31/21 15:59 Pulse Oximetry 95 07/31/21 15:59 Const General: cooperative, comfortable and No ill appearing HENMT Head: normal to inspection and normocephalic Face and sinus: normal facial exam Eyes Pupils: PERRL Neck Neck: normal visual inspection Chest Other: Patient does have findings consistent with yeast in irritation under bilateral breasts Resp Effort & Inspection: labored and tachypneic Auscultation: rhonchi Cardio Rate: tachycardic Rhythm: regular rhythm GI Inspection: normal to inspection and non-distended Palpation: soft, No firm and No tender Back/Spine/Pelvis Other: She reports no tenderness to palpation of the cervical thoracic or lumbar spine Skin Other: And is consistent with yeast under bilateral breasts. Has healing wounds on both hands. No signs of erythema. She also has a small rash on the lower left flank without signs of erythema or infection Neuro General: patient alert, patient awake and moves all extremities Cognition: abnormal cognition (Confused) Speech: speech normal Other: She reports no sensory difficulties bilateral. Strength 5/5 bilateral upper lower extremities and equal. Extrem General: capillary refill normal Psych Appearance: disheveled Scores GCS Henning coma scale eye opening: Spontaneous Lana coma scale verbal response: Confused Lana coma scale motor response: Obey commands Henning coma scale total score: 14 Course Orders Ordered: ED Orders 07/31/21 18:35 Respiratory Panel (Film Array) Stat 07/31/21 18:44 ABG [Arterial Blood Gas] Stat 07/31/21 19:12 CT angio chest PE protocol Stat 07/31/21 19:47 Ammonia (NH3) Stat Troponin I Stat Acetaminophen (Acetaminophen 325 Mg Tablet) 650 mg PO Q6HR PRN PRN Reason: Fever/Mild Pain (1-3) Al Hydrox/Mg Hydrox/Simethicone (Mag Hydrox/Alum/Simeth 30 Ml Udc) 30 ml PO Q6HR PRN PRN Reason: Dyspepsia Albuterol/Ipratropium (Albuterol/Ipratropium 3 Ml Ampul) 3 ml INH RTQ4HR PRN PRN Reason: Shortness Of Breath Aspirin (Aspirin Ec 81 Mg Tablet) 81 mg PO DAILY MIMI Calcium Carbonate (Calcium Carbonate 500 Mg Tab) 1,000 mg PO Q4HR PRN PRN Reason: Dyspepsia Enoxaparin Sodium (Enoxaparin 40 Mg/0.4 Ml Syringe) 40 mg SUBCUT DAILY MIMI Folic Acid (Folic Acid 1 Mg Tablet) 1 mg PO DAILY MIMI Sodium Chloride (Normal Saline 0.9%) 1,000 mls @ 125 mls/hr IV CONT MIMI Last Admin: 07/31/21 18:58 Dose: 25 mls/hr Documented by: SARA Ketorolac Tromethamine (Ketorolac 30 Mg/Ml Vial) 30 mg IV Q6H PRN PRN Reason: Pain, Moderate (4-6) Stop: 08/04/21 00:44 Magnesium Hydroxide (Magnesium Hydroxide 30 Ml Udc) 30 ml PO DAILY PRN PRN Reason: Constipation Multivitamins (Multivitamin 1 Tablet) 1 tab PO DAILY MIMI Naloxone HCl (Naloxone 0.4 Mg/Ml Vial) 0.2 mg IV Q2MIN PRN PRN Reason: Opiate Reversal Thiamine HCl (Thiamine 100 Mg Tablet) 100 mg PO DAILY [facility] Stop: 08/04/21 09:01 Discontinued Medications Furosemide (Furosemide 40 Mg/4 Ml Vial) 40 mg IV NOW ONE Stop: 07/31/21 18:37 Last Admin: 07/31/21 18:48 Dose: 40 mg Documented by: SARA Sodium Chloride (Normal Saline 0.9%) 1,000 mls @ 1,000 mls/hr IV BOLUS ONE Stop: 07/31/21 17:16 Last Infusion: 07/31/21 19:22 Dose: 0 mls/hr Documented by: Admin: 07/31/21 16:53 Dose: 1,000 mls/hr Documented by: SARA POTASSIUM CHLORIDE IN WATER (Potassium Cl 10 Meq/100 Ml Melina) 10 meq in 100 mls @ 100 mls/hr IV Q1H MIMI Stop: 07/31/21 22:14 Last Infusion: 07/31/21 23:00 Dose: 0 mls/hr Documented by: Admin: 07/31/21 21:43 Dose: 75 mls/hr Documented by: Infusion: 07/31/21 21:40 Dose: 75 mls/hr Documented by: Admin: 07/31/21 20:20 Dose: 75 mls/hr Documented by: Infusion: 07/31/21 20:17 Dose: 75 mls/hr Documented by: Infusion: 07/31/21 19:47 Dose: 75 mls/hr Documented by: Admin: 07/31/21 18:51 Dose: 100 mls/hr Documented by: SARA Ceftriaxone Sodium 1,000 mg/ (Sodium Chloride) 100 mls @ 200 mls/hr IV NOW ONE Stop: 07/31/21 18:35 Last Infusion: 07/31/21 19:47 Dose: 0 mls/hr Documented by: Admin: 07/31/21 18:58 Dose: 200 mls/hr Documented by: SARA Levofloxacin (Levaquin) 750 mg in 150 mls @ 100 mls/hr IV NOW ONE Stop: 07/31/21 20:04 Last Infusion: 07/31/21 21:20 Dose: 0 mls/hr Documented by: Admin: 07/31/21 19:48 Dose: 100 mls/hr Documented by: SARA Thiamine HCl 200 mg/ Sodium (Chloride) 102 mls @ 408 mls/hr IV NOW ONE Stop: 07/31/21 21:26 Last Infusion: 07/31/21 23:26 Dose: 0 mls/hr Documented by: Admin: 07/31/21 21:37 Dose: 408 mls/hr Documented by: SARA POTASSIUM CHLORIDE IN WATER (Potassium Cl 10 Meq/100 Ml Melina) 10 meq in 100 mls @ 100 mls/hr IV Q1H MIMI Stop: 08/01/21 00:44 Vital Signs Vital signs: Vital Signs - 8 hr 07/31/21 19:30 07/31/21 19:34 07/31/21 20:00 Temperature 98.8 F 98.8 F Pulse Rate 107 H 104 H 107 H Respiratory Rate 25 H Blood Pressure 160/97 H 174/96 H Pulse Oximetry 96 96 95 07/31/21 20:30 07/31/21 21:00 Temperature 98.8 F 98.8 F Pulse Rate 110 H 107 H Respiratory Rate Blood Pressure 165/96 H 144/95 H Pulse Oximetry 94 Medical Decision Making Lab Data Lab results reviewed: Yes I reviewed the patient's lab results. Result diagrams: 07/31/21 16:15 07/31/21 16:15 Labs: Lab Results 07/31/21 07/31/21 07/31/21 Range/Units 16:15 16:15 16:15 WBC 12.3 H (4.5-11.0) X10^3/uL RBC 4.32 (4.0-5.2) X10^6/uL Hgb 12.5 (12.0-16.0) g/dL Hct 37.5 (36-46) % MCV 86.9 (80-100) fL MCH 28.9 (26-34) PG MCHC 33.3 (30-36) % RDW 16.4 H (11.6-14.8) % Plt Count 307 (150-400) X10^3/uL Neut % (Auto) 86.3 H (50-75) % Lymph % (Auto) 7.6 L (25-40) % Whitley % (Auto) 5.9 (3-14) % Eos % (Auto) 0.0 L (2-4) % Baso % (Auto) 0.2 (0-2) % Neut # (Auto) 94167 H (5290-5747) /uL Lymph # (Auto) 900 L (5015-5953) /uL [place] # (Auto) 700 (0-900) /uL Eos # (Auto) 0 (0-450) /uL Baso # (Auto) 0 (0-100) /uL PT 12.6 (10.1-12.7) SECONDS INR 1.1 (0.9-1.3) APTT 32 (26.4-36.2) SECONDS ABG pH (7.35-7.45) ABG pCO2 (35-45) mmHg ABG pO2 (80-100) mmHg ABG HCO3 (22-26) mmol/L ABG Total CO2 (21-31) mmol/L ABG O2 Saturation (95-100) % ABG Base Excess (-2-2) mmol/L FiO2 Sodium 145 (137-145) mmol/L Potassium 2.9 L (3.4-5.1) mmol/L Chloride 111 H (98-107) mmol/L Carbon Dioxide 27 (22-32) mmol/L BUN 16 (7-17) mg/dL Creatinine 0.57 (0.52-1.04) mg/dL Estimated GFR > 60.0 (>60) mL/min BUN/Creatinine Ratio 28.1 H (6-22) Glucose 119 H (70-100) mg/dL Lactate (0.7-2.1) mmol/L Calcium 10.0 (8.4-10.2) mg/dL Magnesium (1.6-2.3) mg/dL Total Bilirubin 0.8 (0.2-1.3) mg/dL AST 53 H (14-36) IU/L ALT 27 (<35) IU/L Alkaline Phosphatase 137 H (38-126) U/L Ammonia (9-30) umol/L Total Creatine Kinase 323 H (30-135) U/L CK-MB (CK-2) 3.21 H (<2.37) ng/mL CK-MB (CK-2) Rel Index 1.0 L (1.5-5.0) % Troponin I 0.205 H* (0.01-0.034) ng/mL NT-Pro-B Natriuret Pep 1690 H (<125) pg/mL Total Protein 7.0 (6.3-8.2) g/dL Albumin 3.6 (3.5-5.0) g/dL Globulin 3.4 (1.7-4.1) g/dL Albumin/Globulin Ratio 1.1 (1.0-2.8) Triglycerides (35-150) mg/dL Cholesterol (140-199) mg/dL LDL Cholesterol, Calc (<100) mg/dL HDL Cholesterol (40-60) mg/dL Lipase 98 (23-300) U/L Procalcitonin 0.10 (<0.5) ng/mL TSH (0.47-4.68) uIU/mL Urine Color Urine Appearance Urine pH (4.5-8.0) Ur Specific [place] (1.000-1.035) Urine Protein (Negative) Urine Glucose (UA) (Negative) g/dL Urine Ketones (NEGATIVE) Urine Occult Blood (Negative) Urine Nitrate (Negative) Urine Bilirubin (NEGATIVE) Ur Bilirubin Confirm (Negative) Urine Urobilinogen (0.2) E.U./dL Ur Leukocyte Esterase (NEGATIVE) Urine RBC (0-5/HPF) Urine WBC (0-5/HPF) Ur Squamous Epith Cells (0-5/HPF) Amorphous Sediment Urine Bacteria (None) Hyaline Casts (None) Granular Casts (None) Urine Mucus (Negative) Ur Culture Indicated? Urine Test (Negative) Salicylates (<20) mg/dL U Opiates 300ng/mL cut (Negative) Ur Oxycodone Screen (Negative) Urine Methadone Screen (Negative) Acetaminophen (10-30) ug/mL Ur Barbiturates Screen (Negative) U Tricyclic Antidepress (Negative) Ur Phencyclidine Scrn (Negative) Ur Amphetamines Screen (Negative) U Methamphetamines Scrn (Negative) Ur MDMA Scrn (Ecstasy) (Negative) U Benzodiazepines Scrn (Negative) Urine Cocaine Screen (Negative) U Marijuana (THC) Screen (Negative) Ethyl Alcohol ( - 10) mg/dL Chlamy pneumoniae PCR (Not Detect) Adenovirus (PCR) (Not Detect) B. pertussis DNA (PCR) (Not Detecte) B.parapertussis DNA PCR (Not Detecte) Coronavirus OC43 (PCR) (Not Detect) Coronavirus HKU1 (PCR) (Not Detect) Coronavirus 229E (PCR) (Not Detect) SARS-CoV-2 (PCR) (Negative) Coronavirus NL63 (PCR) (Not Detect) Human Metapneumovir PCR (Not Detect) Influenza Type A (PCR) (Not Detect) Influenza Type B (PCR) (Not Detect) M. pneumoniae (PCR) (Not Detect) Parainfluenza 1 (PCR) (Not Detect) Parainfluenza 2 (PCR) (Not Detect) Parainfluenza 3 (PCR) (Not Detect) Parainfluenza 4 (PCR) (Not Detect) RSV (PCR) (Not Detect) Entero/Rhino (PCR) (Not Detect) 07/31/21 07/31/21 07/31/21 Range/Units 16:15 16:15 16:15 WBC (4.5-11.0) X10^3/uL RBC (4.0-5.2) X10^6/uL Hgb (12.0-16.0) g/dL Hct (36-46) % MCV (80-100) fL MCH (26-34) PG MCHC (30-36) % RDW (11.6-14.8) % Plt Count (150-400) X10^3/uL Neut % (Auto) (50-75) % Lymph % (Auto) (25-40) % Whitley % (Auto) (3-14) % Eos % (Auto) (2-4) % Baso % (Auto) (0-2) % Neut # (Auto) (1346-2002) /uL Lymph # (Auto) (5588-7208) /uL Whitley # (Auto) (0-900) /uL Eos # (Auto) (0-450) /uL Baso # (Auto) (0-100) /uL PT (10.1-12.7) SECONDS INR (0.9-1.3) APTT (26.4-36.2) SECONDS ABG pH (7.35-7.45) ABG pCO2 (35-45) mmHg ABG pO2 (80-100) mmHg ABG HCO3 (22-26) mmol/L ABG Total CO2 (21-31) mmol/L ABG O2 Saturation (95-100) % ABG Base Excess (-2-2) mmol/L FiO2 Sodium (137-145) mmol/L Potassium (3.4-5.1) mmol/L Chloride (98-107) mmol/L Carbon Dioxide (22-32) mmol/L BUN (7-17) mg/dL Creatinine (0.52-1.04) mg/dL Estimated GFR (>60) mL/min BUN/Creatinine Ratio (6-22) Glucose (70-100) mg/dL Lactate 1.1 (0.7-2.1) mmol/L Calcium (8.4-10.2) mg/dL Magnesium (1.6-2.3) mg/dL Total Bilirubin (0.2-1.3) mg/dL AST (14-36) IU/L ALT (<35) IU/L Alkaline Phosphatase (38-126) U/L Ammonia (9-30) umol/L Total Creatine Kinase (30-135) U/L CK-MB (CK-2) (<2.37) ng/mL CK-MB (CK-2) Rel Index (1.5-5.0) % Troponin I (0.01-0.034) ng/mL NT-Pro-B Natriuret Pep (<125) pg/mL Total Protein (6.3-8.2) g/dL Albumin (3.5-5.0) g/dL Globulin (1.7-4.1) g/dL Albumin/Globulin Ratio (1.0-2.8) Triglycerides (35-150) mg/dL Cholesterol (140-199) mg/dL LDL Cholesterol, Calc (<100) mg/dL HDL Cholesterol (40-60) mg/dL Lipase (23-300) U/L Procalcitonin (<0.5) ng/mL TSH (0.47-4.68) uIU/mL Urine Color Urine Appearance Urine pH (4.5-8.0) Ur Specific [place] (1.000-1.035) Urine Protein (Negative) Urine Glucose (UA) (Negative) g/dL Urine Ketones (NEGATIVE) Urine Occult Blood (Negative) Urine Nitrate (Negative) Urine Bilirubin (NEGATIVE) Ur Bilirubin Confirm (Negative) Urine Urobilinogen (0.2) E.U./dL Ur Leukocyte Esterase (NEGATIVE) Urine RBC (0-5/HPF) Urine WBC (0-5/HPF) Ur Squamous Epith Cells (0-5/HPF) Amorphous Sediment Urine Bacteria (None) Hyaline Casts (None) Granular Casts (None) Urine Mucus (Negative) Ur Culture Indicated? Urine Test (Negative) Salicylates < 1.0 (<20) mg/dL U Opiates 300ng/mL cut (Negative) Ur Oxycodone Screen (Negative) Urine Methadone Screen (Negative) Acetaminophen < 10 L (10-30) ug/mL Ur Barbiturates Screen (Negative) U Tricyclic Antidepress (Negative) Ur Phencyclidine Scrn (Negative) Ur Amphetamines Screen (Negative) U Methamphetamines Scrn (Negative) Ur MDMA Scrn (Ecstasy) (Negative) U Benzodiazepines Scrn (Negative) Urine Cocaine Screen (Negative) U Marijuana (THC) Screen (Negative) Ethyl Alcohol < 10 ( - 10) mg/dL Chlamy pneumoniae PCR (Not Detect) Adenovirus (PCR) (Not Detect) B. pertussis DNA (PCR) (Not Detecte) B.parapertussis DNA PCR (Not Detecte) Coronavirus OC43 (PCR) (Not Detect) Coronavirus HKU1 (PCR) (Not Detect) Coronavirus 229E (PCR) (Not Detect) SARS-CoV-2 (PCR) (Negative) Coronavirus NL63 (PCR) (Not Detect) Human Metapneumovir PCR (Not Detect) Influenza Type A (PCR) (Not Detect) Influenza Type B (PCR) (Not Detect) M. pneumoniae (PCR) (Not Detect) Parainfluenza 1 (PCR) (Not Detect) Parainfluenza 2 (PCR) (Not Detect) Parainfluenza 3 (PCR) (Not Detect) Parainfluenza 4 (PCR) (Not Detect) RSV (PCR) (Not Detect) Entero/Rhino (PCR) (Not Detect) 07/31/21 07/31/21 07/31/21 Range/Units 16:15 16:15 16:15 WBC (4.5-11.0) X10^3/uL RBC (4.0-5.2) X10^6/uL Hgb (12.0-16.0) g/dL Hct (36-46) % MCV (80-100) fL MCH (26-34) PG MCHC (30-36) % RDW (11.6-14.8) % Plt Count (150-400) X10^3/uL Neut % (Auto) (50-75) % Lymph % (Auto) (25-40) % [place] % (Auto) (3-14) % Eos % (Auto) (2-4) % Baso % (Auto) (0-2) % Neut # (Auto) (7013-4269) /uL Lymph # (Auto) (3520-8512) /uL [place] # (Auto) (0-900) /uL Eos # (Auto) (0-450) /uL Baso # (Auto) (0-100) /uL PT (10.1-12.7) SECONDS INR (0.9-1.3) APTT (26.4-36.2) SECONDS ABG pH (7.35-7.45) ABG pCO2 (35-45) mmHg ABG pO2 (80-100) mmHg ABG HCO3 (22-26) mmol/L ABG Total CO2 (21-31) mmol/L ABG O2 Saturation (95-100) % ABG Base Excess (-2-2) mmol/L FiO2 Sodium (137-145) mmol/L Potassium (3.4-5.1) mmol/L Chloride (98-107) mmol/L Carbon Dioxide (22-32) mmol/L BUN (7-17) mg/dL Creatinine (0.52-1.04) mg/dL Estimated GFR (>60) mL/min BUN/Creatinine Ratio (6-22) Glucose (70-100) mg/dL Lactate (0.7-2.1) mmol/L Calcium (8.4-10.2) mg/dL Magnesium 1.9 (1.6-2.3) mg/dL Total Bilirubin (0.2-1.3) mg/dL AST (14-36) IU/L ALT (<35) IU/L Alkaline Phosphatase (38-126) U/L Ammonia (9-30) umol/L Total Creatine Kinase (30-135) U/L CK-MB (CK-2) (<2.37) ng/mL CK-MB (CK-2) Rel Index (1.5-5.0) % Troponin I (0.01-0.034) ng/mL NT-Pro-B Natriuret Pep (<125) pg/mL Total Protein (6.3-8.2) g/dL Albumin (3.5-5.0) g/dL Globulin (1.7-4.1) g/dL Albumin/Globulin Ratio (1.0-2.8) Triglycerides 109 (35-150) mg/dL Cholesterol 164 (140-199) mg/dL LDL Cholesterol, Calc 89 (<100) mg/dL HDL Cholesterol 53 (40-60) mg/dL Lipase (23-300) U/L Procalcitonin (<0.5) ng/mL TSH 5.16 H (0.47-4.68) uIU/mL Urine Color Urine Appearance Urine pH (4.5-8.0) Ur Specific [place] (1.000-1.035) Urine Protein (Negative) Urine Glucose (UA) (Negative) g/dL Urine Ketones (NEGATIVE) Urine Occult Blood (Negative) Urine Nitrate (Negative) Urine Bilirubin (NEGATIVE) Ur Bilirubin Confirm (Negative) Urine Urobilinogen (0.2) E.U./dL Ur Leukocyte Esterase (NEGATIVE) Urine RBC (0-5/HPF) Urine WBC (0-5/HPF) Ur Squamous Epith Cells (0-5/HPF) Amorphous Sediment Urine Bacteria (None) Hyaline Casts (None) Granular Casts (None) Urine Mucus (Negative) Ur Culture Indicated? Urine Test (Negative) Salicylates (<20) mg/dL U Opiates 300ng/mL cut (Negative) Ur Oxycodone Screen (Negative) Urine Methadone Screen (Negative) Acetaminophen (10-30) ug/mL Ur Barbiturates Screen (Negative) U Tricyclic Antidepress (Negative) Ur Phencyclidine Scrn (Negative) Ur Amphetamines Screen (Negative) U Methamphetamines Scrn (Negative) Ur MDMA Scrn (Ecstasy) (Negative) U Benzodiazepines Scrn (Negative) Urine Cocaine Screen (Negative) U Marijuana (THC) Screen (Negative) Ethyl Alcohol ( - 10) mg/dL Chlamy pneumoniae PCR (Not Detect) Adenovirus (PCR) (Not Detect) B. pertussis DNA (PCR) (Not Detecte) B.parapertussis DNA PCR (Not Detecte) Coronavirus OC43 (PCR) (Not Detect) Coronavirus HKU1 (PCR) (Not Detect) Coronavirus 229E (PCR) (Not Detect) SARS-CoV-2 (PCR) (Negative) Coronavirus NL63 (PCR) (Not Detect) Human Metapneumovir PCR (Not Detect) Influenza Type A (PCR) (Not Detect) Influenza Type B (PCR) (Not Detect) M. pneumoniae (PCR) (Not Detect) Parainfluenza 1 (PCR) (Not Detect) Parainfluenza 2 (PCR) (Not Detect) Parainfluenza 3 (PCR) (Not Detect) Parainfluenza 4 (PCR) (Not Detect) RSV (PCR) (Not Detect) Entero/Rhino (PCR) (Not Detect) 07/31/21 07/31/21 07/31/21 Range/Units 16:26 16:30 16:30 WBC (4.5-11.0) X10^3/uL RBC (4.0-5.2) X10^6/uL Hgb (12.0-16.0) g/dL Hct (36-46) % MCV (80-100) fL MCH (26-34) PG MCHC (30-36) % RDW (11.6-14.8) % Plt Count (150-400) X10^3/uL Neut % (Auto) (50-75) % Lymph % (Auto) (25-40) % [place] % (Auto) (3-14) % Eos % (Auto) (2-4) % Baso % (Auto) (0-2) % Neut # (Auto) (5780-5475) /uL Lymph # (Auto) (2814-6498) /uL [place] # (Auto) (0-900) /uL Eos # (Auto) (0-450) /uL Baso # (Auto) (0-100) /uL PT (10.1-12.7) SECONDS INR (0.9-1.3) APTT (26.4-36.2) SECONDS ABG pH (7.35-7.45) ABG pCO2 (35-45) mmHg ABG pO2 (80-100) mmHg ABG HCO3 (22-26) mmol/L ABG Total CO2 (21-31) mmol/L ABG O2 Saturation (95-100) % ABG Base Excess (-2-2) mmol/L FiO2 Sodium (137-145) mmol/L Potassium (3.4-5.1) mmol/L Chloride (98-107) mmol/L Carbon Dioxide (22-32) mmol/L BUN (7-17) mg/dL Creatinine (0.52-1.04) mg/dL Estimated GFR (>60) mL/min BUN/Creatinine Ratio (6-22) Glucose (70-100) mg/dL Lactate (0.7-2.1) mmol/L Calcium (8.4-10.2) mg/dL Magnesium (1.6-2.3) mg/dL Total Bilirubin (0.2-1.3) mg/dL AST (14-36) IU/L ALT (<35) IU/L Alkaline Phosphatase (38-126) U/L Ammonia (9-30) umol/L Total Creatine Kinase (30-135) U/L CK-MB (CK-2) (<2.37) ng/mL CK-MB (CK-2) Rel Index (1.5-5.0) % Troponin I (0.01-0.034) ng/mL NT-Pro-B Natriuret Pep (<125) pg/mL Total Protein (6.3-8.2) g/dL Albumin (3.5-5.0) g/dL Globulin (1.7-4.1) g/dL Albumin/Globulin Ratio (1.0-2.8) Triglycerides (35-150) mg/dL Cholesterol (140-199) mg/dL LDL Cholesterol, Calc (<100) mg/dL HDL Cholesterol (40-60) mg/dL Lipase (23-300) U/L Procalcitonin (<0.5) ng/mL TSH (0.47-4.68) uIU/mL Urine Color Yellow Urine Appearance Clear Urine pH 6.5 (4.5-8.0) Ur Specific [place] 1.025 (1.000-1.035) Urine Protein 2+ H (Negative) Urine Glucose (UA) Negative (Negative) g/dL Urine Ketones 3+ H (NEGATIVE) Urine Occult Blood Negative (Negative) Urine Nitrate Negative (Negative) Urine Bilirubin 1+ H (NEGATIVE) Ur Bilirubin Confirm Negative (Negative) Urine Urobilinogen 0.2 (0.2) E.U./dL Ur Leukocyte Esterase Negative (NEGATIVE) Urine RBC None seen (0-5/HPF) Urine WBC 1-5/hpf (0-5/HPF) Ur Squamous Epith Cells 1-5 /hpf D (0-5/HPF) Amorphous Sediment 1+ Urine Bacteria None seen (None) Hyaline Casts 1-5/lpf (None) Granular Casts 0-1/lpf (None) Urine Mucus 1+ H (Negative) Ur Culture Indicated? Cult not indicated Urine Test Negative (Negative) Salicylates (<20) mg/dL U Opiates 300ng/mL cut (Negative) Ur Oxycodone Screen (Negative) Urine Methadone Screen (Negative) Acetaminophen (10-30) ug/mL Ur Barbiturates Screen (Negative) U Tricyclic Antidepress (Negative) Ur Phencyclidine Scrn (Negative) Ur Amphetamines Screen (Negative) U Methamphetamines Scrn (Negative) Ur MDMA Scrn (Ecstasy) (Negative) U Benzodiazepines Scrn (Negative) Urine Cocaine Screen (Negative) U Marijuana (THC) Screen (Negative) Ethyl Alcohol ( - 10) mg/dL Chlamy pneumoniae PCR (Not Detect) Adenovirus (PCR) (Not Detect) B. pertussis DNA (PCR) (Not Detecte) B.parapertussis DNA PCR (Not Detecte) Coronavirus OC43 (PCR) (Not Detect) Coronavirus HKU1 (PCR) (Not Detect) Coronavirus 229E (PCR) (Not Detect) SARS-CoV-2 (PCR) Negative (Negative) Coronavirus NL63 (PCR) (Not Detect) Human Metapneumovir PCR (Not Detect) Influenza Type A (PCR) (Not Detect) Influenza Type B (PCR) (Not Detect) M. pneumoniae (PCR) (Not Detect) Parainfluenza 1 (PCR) (Not Detect) Parainfluenza 2 (PCR) (Not Detect) Parainfluenza 3 (PCR) (Not Detect) Parainfluenza 4 (PCR) (Not Detect) RSV (PCR) (Not Detect) Entero/Rhino (PCR) (Not Detect) 07/31/21 07/31/21 07/31/21 Range/Units 16:30 18:35 18:44 WBC (4.5-11.0) X10^3/uL RBC (4.0-5.2) X10^6/uL Hgb (12.0-16.0) g/dL Hct (36-46) % MCV (80-100) fL MCH (26-34) PG MCHC (30-36) % RDW (11.6-14.8) % Plt Count (150-400) X10^3/uL Neut % (Auto) (50-75) % Lymph % (Auto) (25-40) % Whitley % (Auto) (3-14) % Eos % (Auto) (2-4) % Baso % (Auto) (0-2) % Neut # (Auto) (8222-6057) /uL Lymph # (Auto) (4669-8716) /uL Whitley # (Auto) (0-900) /uL Eos # (Auto) (0-450) /uL Baso # (Auto) (0-100) /uL PT (10.1-12.7) SECONDS INR (0.9-1.3) APTT (26.4-36.2) SECONDS ABG pH 7.35 (7.35-7.45) ABG pCO2 46.0 H (35-45) mmHg ABG pO2 82 (80-100) mmHg ABG HCO3 25 (22-26) mmol/L ABG Total CO2 27 (21-31) mmol/L ABG O2 Saturation 95 (95-100) % ABG Base Excess 0.0 (-2-2) mmol/L FiO2 40 Sodium (137-145) mmol/L Potassium (3.4-5.1) mmol/L Chloride (98-107) mmol/L Carbon Dioxide (22-32) mmol/L BUN (7-17) mg/dL Creatinine (0.52-1.04) mg/dL Estimated GFR (>60) mL/min BUN/Creatinine Ratio (6-22) Glucose (70-100) mg/dL Lactate (0.7-2.1) mmol/L Calcium (8.4-10.2) mg/dL Magnesium (1.6-2.3) mg/dL Total Bilirubin (0.2-1.3) mg/dL AST (14-36) IU/L ALT (<35) IU/L Alkaline Phosphatase (38-126) U/L Ammonia (9-30) umol/L Total Creatine Kinase (30-135) U/L CK-MB (CK-2) (<2.37) ng/mL CK-MB (CK-2) Rel Index (1.5-5.0) % Troponin I (0.01-0.034) ng/mL NT-Pro-B Natriuret Pep (<125) pg/mL Total Protein (6.3-8.2) g/dL Albumin (3.5-5.0) g/dL Globulin (1.7-4.1) g/dL Albumin/Globulin Ratio (1.0-2.8) Triglycerides (35-150) mg/dL Cholesterol (140-199) mg/dL LDL Cholesterol, Calc (<100) mg/dL HDL Cholesterol (40-60) mg/dL Lipase (23-300) U/L Procalcitonin (<0.5) ng/mL TSH (0.47-4.68) uIU/mL Urine Color Urine Appearance Urine pH (4.5-8.0) Ur Specific [place] (1.000-1.035) Urine Protein (Negative) Urine Glucose (UA) (Negative) g/dL Urine Ketones (NEGATIVE) Urine Occult Blood (Negative) Urine Nitrate (Negative) Urine Bilirubin (NEGATIVE) Ur Bilirubin Confirm (Negative) Urine Urobilinogen (0.2) E.U./dL Ur Leukocyte Esterase (NEGATIVE) Urine RBC (0-5/HPF) Urine WBC (0-5/HPF) Ur Squamous Epith Cells (0-5/HPF) Amorphous Sediment Urine Bacteria (None) Hyaline Casts (None) Granular Casts (None) Urine Mucus (Negative) Ur Culture Indicated? Urine Test (Negative) Salicylates (<20) mg/dL U Opiates 300ng/mL cut Negative (Negative) Ur Oxycodone Screen Negative (Negative) Urine Methadone Screen Negative (Negative) Acetaminophen (10-30) ug/mL Ur Barbiturates Screen Negative (Negative) U Tricyclic Antidepress Negative (Negative) Ur Phencyclidine Scrn Negative (Negative) Ur Amphetamines Screen Negative (Negative) U Methamphetamines Scrn Negative (Negative) Ur MDMA Scrn (Ecstasy) Negative (Negative) U Benzodiazepines Scrn Positive H (Negative) Urine Cocaine Screen Negative (Negative) U Marijuana (THC) Screen Negative (Negative) Ethyl Alcohol ( - 10) mg/dL Chlamy pneumoniae PCR Not detected (Not Detect) Adenovirus (PCR) Not detected (Not Detect) B. pertussis DNA (PCR) Not detected (Not Detecte) B.parapertussis DNA PCR Not detected (Not Detecte) Coronavirus OC43 (PCR) Not detected (Not Detect) Coronavirus HKU1 (PCR) Not detected (Not Detect) Coronavirus 229E (PCR) Not detected (Not Detect) SARS-CoV-2 (PCR) Not detected (Negative) Coronavirus NL63 (PCR) Not detected (Not Detect) Human Metapneumovir PCR Not detected (Not Detect) Influenza Type A (PCR) Not detected (Not Detect) Influenza Type B (PCR) Not detected (Not Detect) M. pneumoniae (PCR) Not detected (Not Detect) Parainfluenza 1 (PCR) Not detected (Not Detect) Parainfluenza 2 (PCR) Not detected (Not Detect) Parainfluenza 3 (PCR) Not detected (Not Detect) Parainfluenza 4 (PCR) Not detected (Not Detect) RSV (PCR) Not detected (Not Detect) Entero/Rhino (PCR) Not detected (Not Detect) 07/31/21 07/31/21 Range/Units 19:47 19:47 WBC (4.5-11.0) X10^3/uL RBC (4.0-5.2) X10^6/uL Hgb (12.0-16.0) g/dL Hct (36-46) % MCV (80-100) fL MCH (26-34) PG MCHC (30-36) % RDW (11.6-14.8) % Plt Count (150-400) X10^3/uL Neut % (Auto) (50-75) % Lymph % (Auto) (25-40) % [place] % (Auto) (3-14) % Eos % (Auto) (2-4) % Baso % (Auto) (0-2) % Neut # (Auto) (6398-9724) /uL Lymph # (Auto) (6263-1410) /uL Whitley # (Auto) (0-900) /uL Eos # (Auto) (0-450) /uL Baso # (Auto) (0-100) /uL PT (10.1-12.7) SECONDS INR (0.9-1.3) APTT (26.4-36.2) SECONDS ABG pH (7.35-7.45) ABG pCO2 (35-45) mmHg ABG pO2 (80-100) mmHg ABG HCO3 (22-26) mmol/L ABG Total CO2 (21-31) mmol/L ABG O2 Saturation (95-100) % ABG Base Excess (-2-2) mmol/L FiO2 Sodium (137-145) mmol/L Potassium (3.4-5.1) mmol/L Chloride (98-107) mmol/L Carbon Dioxide (22-32) mmol/L BUN (7-17) mg/dL Creatinine (0.52-1.04) mg/dL Estimated GFR (>60) mL/min BUN/Creatinine Ratio (6-22) Glucose (70-100) mg/dL Lactate (0.7-2.1) mmol/L Calcium (8.4-10.2) mg/dL Magnesium (1.6-2.3) mg/dL Total Bilirubin (0.2-1.3) mg/dL AST (14-36) IU/L ALT (<35) IU/L Alkaline Phosphatase (38-126) U/L Ammonia 10 (9-30) umol/L Total Creatine Kinase (30-135) U/L CK-MB (CK-2) (<2.37) ng/mL CK-MB (CK-2) Rel Index (1.5-5.0) % Troponin I 0.195 H* (0.01-0.034) ng/mL NT-Pro-B Natriuret Pep (<125) pg/mL Total Protein (6.3-8.2) g/dL Albumin (3.5-5.0) g/dL Globulin (1.7-4.1) g/dL Albumin/Globulin Ratio (1.0-2.8) Triglycerides (35-150) mg/dL Cholesterol (140-199) mg/dL LDL Cholesterol, Calc (<100) mg/dL HDL Cholesterol (40-60) mg/dL Lipase (23-300) U/L Procalcitonin (<0.5) ng/mL TSH (0.47-4.68) uIU/mL Urine Color Urine Appearance Urine pH (4.5-8.0) Ur Specific [place] (1.000-1.035) Urine Protein (Negative) Urine Glucose (UA) (Negative) g/dL Urine Ketones (NEGATIVE) Urine Occult Blood (Negative) Urine Nitrate (Negative) Urine Bilirubin (NEGATIVE) Ur Bilirubin Confirm (Negative) Urine Urobilinogen (0.2) E.U./dL Ur Leukocyte Esterase (NEGATIVE) Urine RBC (0-5/HPF) Urine WBC (0-5/HPF) Ur Squamous Epith Cells (0-5/HPF) Amorphous Sediment Urine Bacteria (None) Hyaline Casts (None) Granular Casts (None) Urine Mucus (Negative) Ur Culture Indicated? Urine Test (Negative) Salicylates (<20) mg/dL U Opiates 300ng/mL cut (Negative) Ur Oxycodone Screen (Negative) Urine Methadone Screen (Negative) Acetaminophen (10-30) ug/mL Ur Barbiturates Screen (Negative) U Tricyclic Antidepress (Negative) Ur Phencyclidine Scrn (Negative) Ur Amphetamines Screen (Negative) U Methamphetamines Scrn (Negative) Ur MDMA Scrn (Ecstasy) (Negative) U Benzodiazepines Scrn (Negative) Urine Cocaine Screen (Negative) U Marijuana (THC) Screen (Negative) Ethyl Alcohol ( - 10) mg/dL Chlamy pneumoniae PCR (Not Detect) Adenovirus (PCR) (Not Detect) B. pertussis DNA (PCR) (Not Detecte) B.parapertussis DNA PCR (Not Detecte) Coronavirus OC43 (PCR) (Not Detect) Coronavirus HKU1 (PCR) (Not Detect) Coronavirus 229E (PCR) (Not Detect) SARS-CoV-2 (PCR) (Negative) Coronavirus NL63 (PCR) (Not Detect) Human Metapneumovir PCR (Not Detect) Influenza Type A (PCR) (Not Detect) Influenza Type B (PCR) (Not Detect) M. pneumoniae (PCR) (Not Detect) Parainfluenza 1 (PCR) (Not Detect) Parainfluenza 2 (PCR) (Not Detect) Parainfluenza 3 (PCR) (Not Detect) Parainfluenza 4 (PCR) (Not Detect) RSV (PCR) (Not Detect) Entero/Rhino (PCR) (Not Detect) Imaging Data Chest x-ray: Radiologist's Impression: [address] [address] XRay Report Signed Patient: Rebekah Washington MR#: [id number] : 1970 Acct:[id number] Age/Sex: 51 / F Date of Service: 07/31/21 Loc: ED Accession Number: [id number] ?? Procedure: XR chest 1V Ordering Provider: Abelino Rivas MD PROCEDURE:? XR CHEST 1V ? INDICATIONS:? Suspected sepsis ? TECHNIQUE:? One view of the chest was acquired.? ? COMPARISON:? None. ? FINDINGS:? ? Patchy bilateral airspace opacities in both lungs.? No visible pleural effusion or findings of pneumothorax.? Normal heart size. ? IMPRESSION:? Patchy bilateral airspace opacities, consistent with infection.? ? ? Dictated by: Cole Nick M.D. on 07/31/2021 at 17:06 ? ? Approved by: Cole Nick M.D. on 07/31/2021 at 17:06?? CT scan - head: Radiologist's Impression: [address] [address] [address] Scan Report Signed Patient: Rebekah Washington MR#: [id number] : 1970 Acct:[id number] Age/Sex: 51 / F Date of Service: 07/31/21 Loc: ED Accession Number: [id number] ?? Procedure: CT head/brain wo con Ordering Provider: Jose Antonio Callahan D.O. PROCEDURE:? CT HEAD/BRAIN WO CON ? INDICATIONS:? Confusion ? TECHNIQUE:? Noncontrast 4.5 mm thick angled axial sections acquired from the foramen magnum to the vertex, with coronal and sagittal reformats.? For radiation dose reduction, the following was used:? automated exposure control, adjustment of mA and/or kV according to patient size.? ? COMPARISON:? None. ? FINDINGS:? Image quality:? Excellent.? ? CSF spaces:? Basal cisterns are patent.? No extra-axial fluid collections.? Ventricles are normal in size and shape.? ? Brain:? No midline shift.? No intracranial masses or hemorrhage.? Deshpande-white matter interface is normal.? ? Skull and face:? Calvarium and visualized facial bones are intact, without suspicious lesions.? ? Sinuses:? Visualized sinuses and mastoids are clear.? ? IMPRESSION:? No acute intracranial abnormality. ? ? Dictated by: Cole Nick M.D. on 07/31/2021 at 18:46 ? ? Approved by: Cole Nick M.D. on 07/31/2021 at 18:47?? CT scan - chest: Radiologist's Impression: [place] [address] CT Scan Report Signed Patient: Reebkah Washington MR#: [id number] : 1970 Acct:[id number] Age/Sex: 51 / F Date of Service: 07/31/21 Loc: ED Accession Number: [id number] ?? Procedure: CT angio chest PE protocol Ordering Provider: Jose Antonio Callahan D.O. PROCEDURE:? CT ANGIO CHEST PE PROTOCOL ? INDICATIONS:? Chest pain, shortness of breath, tachycardia ? TECHNIQUE:? After the administration of intravenous contrast, 2 mm thick sections acquired from the pulmonary apices to the posterior costophrenic angles.? 3-dimensional maximum intensity projection (MIP) coronal and sagittal reformats were then acquired through the thorax.? For radiation dose reduction, the following was used:? automated exposure control, adjustment of mA and/or kV according to patient size.? ? COMPARISON:? None. ? FINDINGS:? No pulmonary artery filling defect to indicate pulmonary embolism.? Mildly dilated main pulmonary trunk. ? Normal heart size.? No pericardial effusion.? No reflux of contrast into the IVC or hepatic veins. ? No threshold enlarged mediastinal, hilar, or axillary lymph node. ? Extensive bilateral pulmonary ground-glass and consolidative opacity, likely infectious.? No pleural effusion or other significant pleural abnormality. ? No acute finding in the chest wall.? Remote rib fractures noted.? Normal thoracic vertebral body height and alignment. ? IMPRESSION:? No pulmonary embolism.? Extensive bilateral consolidative and ground-glass airspace opacities are likely infectious.? ? ? Dictated by: Cole Nick M.D. on 07/31/2021 at 19:32 ? ? Approved by: Cole Nick M.D. on 07/31/2021 at 19:34?? ECG Data Attestation: I personally reviewed and interpreted this ECG as follows: Interpretation: Sinus tachycardia Ventricular rate 105 First-degree AV block pain arrival of 212 milliseconds Normal axis Artifact noted in 1 aVL [address] T wave changes MDM Narrative Medical decision making narrative: Patient is confused about year and place and why she is here. She does have coarse breath sounds bilateral and is tachypneic. Is hypoxic on room air but is able to maintain saturations by nasal cannula. Chest x-ray concerning for pneumonia. COVID is negative. Was started on antibiotics. Patient not hypotensive. No indication for 30 cc/kilogram of fluid based on her presentation. Chest CT does not show any signs of pulmonary embolism but does show bilateral infiltrates. CT scan of the head is unremarkable. Unsure with the baseline mental status is. Consider toxicologic etiology to include alcohol withdrawal. Was given thiamine. Patient is positive for benzodiazepines. No reported seizure history. No signs of trauma that would explain patient's presenting symptoms. Troponin is elevated and BNP is elevated however I feel that this is unlikely heart failure/ACS. There is no signs of pulmonary embolism on the CT scan. Patient does require admission the hospital for further evaluation and treatment. Discussed the case with and be [facility] who will admit for further evaluation. Critical Care Time Critical Care Time Critical Care Time: Yes Total Critical Care Time: 40 Attestation: The high probability of a clinically significant, sudden or life threatening deterioration of the neurologic/cardiovascular system(s) required my full and direct attention, intervention and personal management. The aggregate critical care time was [40 minutes. This time is in addition to time spent performing reported procedures but includes the following: [X Data Review and interpretation [X Patient assessment and monitoring of vital signs [X Documentation X [] Medication orders and management Discharge Plan Departure Patient Disposition: Admitted As Inpatient Clinical Impression: Altered mental status, Hypokalemia, Pneumonia Admit Date/Time: 07/31/21 21:29 Admit Provider: Sharmila Pierce
[2021-07-31] MEDS: FUROSEMIDE 40 MG/4 ML VIAL IV (18:48)
[2021-07-31] MEDS: POTASSIUM CHLORIDE IN WATER 10 MEQ/100 ML PIGGYBACK 100 MEQ IV (18:51)
[2021-07-31] MEDS: cefTRIAXone 1,000 MG in SODIUM CHLORIDE 0.9% 100 ML 200 ML IV (18:58)
[2021-07-31] MEDS: SODIUM CHLORIDE 0.9% 1,000 ML 25 ML IV (18:58)
[2021-07-31 19:05] LABS: Acetaminophen < 10 ug/mL (10-30); Ethanol (ETOH) < 10 mg/dL; Salicylate < 1.0 mg/dL (<20)
[2021-07-31 19:09] LABS: UR Morphine/Opiate cutoff 300 Negative (Negative); Ur Creatinine Normal (Normal); Ur Specific Gravity Normal (Normal); Urine Amphetamines Negative (Negative); Urine Barbiturates Negative (Negative); Urine Benzodiazepines Positive (Negative); Urine Cocaine Negative (Negative); Urine MDMA Negative (Negative); Urine Methadone Negative (Negative); Urine Methamphetamines Negative (Negative); Urine Oxycodone Negative (Negative); Urine Phencyclidine Negative (Negative); Urine Tetrahydrocannabinol Negative (Negative); Urine Tricyclic Antidepressant Negative (Negative); Urine pH Normal (Normal)
--- NOTE | 2021-07-31 19:12 | DI.CT.S_ITS ---
PROCEDURE: CT ANGIO CHEST PE PROTOCOL INDICATIONS: Chest pain, shortness of breath, tachycardia TECHNIQUE: After the administration of intravenous contrast, 2 mm thick sections acquired from the pulmonary apices to the posterior costophrenic angles. 3-dimensional maximum intensity projection (MIP) coronal and sagittal reformats were then acquired through the thorax. For radiation dose reduction, the following was used: automated exposure control, adjustment of mA and/or kV according to patient size. COMPARISON: None. FINDINGS: No pulmonary artery filling defect to indicate pulmonary embolism. Mildly dilated main pulmonary trunk. Normal heart size. No pericardial effusion. No reflux of contrast into the IVC or hepatic veins. No threshold enlarged mediastinal, hilar, or axillary lymph node. Extensive bilateral pulmonary ground-glass and consolidative opacity, likely infectious. No pleural effusion or other significant pleural abnormality. No acute finding in the chest wall. Remote rib fractures noted. Normal thoracic vertebral body height and alignment. IMPRESSION: No pulmonary embolism. Extensive bilateral consolidative and ground-glass airspace opacities are likely infectious. Dictated by: Cole Nick M.D. on 07/31/2021 at 19:32 Approved by: Cole Nick M.D. on 07/31/2021 at 19:34
[2021-07-31 19:25] LABS: HCO3 ABG 25 mmol/L (22-26); Oxygen Saturation ABG 95 % (95-100); PO2 ABG 82 mmHg (80-100); TCO2 ABG 27 mmol/L (21-31); pH ABG 7.35 (7.35-7.45)
[2021-07-31 19:26] LABS: Fractionated Inspired Oxygen 40
[2021-07-31] MEDS: levoFLOXacin 750 MG/150 ML PIGGYBACK 100 MG IV (19:48)
[2021-07-31 19:53] LABS: Adenovirus Not Detected (Not Detect); B. parapertussis Not Detected (Not Detecte); Bordetella pertussis Not Detected (Not Detecte); Chlamydophila pneumoniae Not Detected (Not Detect); Coronavirus 229E Not Detected (Not Detect); Coronavirus HKU1 Not Detected (Not Detect); Coronavirus NL 63 Not Detected (Not Detect); Coronavirus OC43 Not Detected (Not Detect); Human Metapneumovirus Not Detected (Not Detect); Human Rhinovirus/Enterovirus Not Detected (Not Detect); Influenza A Not Detected (Not Detect); Influenza B Not Detected (Not Detect); Mycoplasma pneumoniae Not Detected (Not Detect); Parainfluenza Virus 1 Not Detected (Not Detect); Parainfluenza Virus 2 Not Detected (Not Detect); Parainfluenza Virus 3 Not Detected (Not Detect); Parainfluenza Virus 4 Not Detected (Not Detect); Respiratory Syncytial Virus Not Detected (Not Detect); SARS- CoV-2 Not Detected (Not Detecte)
[2021-07-31 20:10] LABS: Ammonia (NH3) 10 umol/L (9-30)
[2021-07-31] MEDS: POTASSIUM CHLORIDE IN WATER 10 MEQ/100 ML PIGGYBACK 75 MEQ IV ×2 (20:20→21:43)
[2021-07-31 20:24] LABS: Troponin I 0.195 ng/mL (0.01-0.034)
[2021-07-31] MEDS: THIAMINE 200 MG in SODIUM CHLORIDE 0.9% 100 ML 408 ML IV (21:37)
[2021-08-01] VITALS (8 sets, daily range): BP systolic 137–152; BP diastolic 86–99; PULSE 97–115; RESP 18–109; TEMP 36.9–37.6; O2SAT 88–93; BMI 27.1
--- NOTE | 2021-08-01 00:56 | DI.ECHO.S_ITS ---
[facility]+ [facility] +---------+ : : [address] [place] : : : : [id number] : : : : Phone: [phone]+ Echocardiogram Report + + :Name: THOMAS AYALA Study Date: 08/01/2021 Height: 60 in : :[facility] ReadingLocation: Weight: 170 lb : : Gender: Female BSA: 1.7 m2 : :: 1970 Age: 51 yrs BP: 156/93 mmHg: :Reason For Study: ALTERED LOC : :Ordering Physician: LEONARDA, : :ALMA Performed By: Goldie Cuenca : :Referring: ALMA BROWER : + + Interpretation Summary The left ventricle is normal in size and wall thickness. The ejection fraction is estimated to be 60-65%. The right ventricle is normal in size and function. Injection of contrast documented no interatrial shunt. The IVC is of normal diameter and collapses greater than 50% with a sniff. This suggests a low right atrial pressure of 3 mm Hg. No significant valvular disease. Procedure: A two-dimensional transthoracic echocardiogram with color flow and Doppler was performed. The study quality was technically adequate. A saline contrast injection was performed to assess for cardiac shunting. There is no prior echocardiogram noted for this patient. The patient was in sinus rhythm with heart rates between 95-99 bpm during the exam. Left Ventricle: The left ventricle is normal in size and wall thickness. The ejection fraction is estimated to be 60-65%. There are no focal wall motion abnormalities. Diastolic parameters suggest probable normal left ventricular diastolic function and normal filling pressures. Right Ventricle: The right ventricle is normal in size and function. Atria: The left atrial size is normal. Right atrial size is normal. There is no Doppler evidence for an interatrial shunt. Injection of contrast documented no interatrial shunt. Mitral Valve: The mitral valve is normal in structure and function. There is trace mitral regurgitation. Aortic Valve: The aortic valve opens well. There is no aortic valve stenosis. No aortic regurgitation is present. Tricuspid Valve: The tricuspid valve is normal in structure and function. There is trace tricuspid regurgitation. Pulmonic Valve: The pulmonic valve is not well visualized. There is trace pulmonic regurgitation. Great Vessels: The aortic root is normal size. The ascending aorta is at the upper limits of normal in size. The IVC is of normal diameter and collapses greater than 50% with a sniff. This suggests a low right atrial pressure of 3 mm Hg. Pericardium/ Pleura There is no pericardial effusion. There is no pleural effusion. MMode/2D Measurements & Calculations LVIDd: 3.8 cm LVOT diam: 2.0 cm LVIDs: 2.7 cm Ao root diam: 3.2 cm FS: 28.9 % asc Aorta Diam: 3.4 cm IVSd: 0.78 cm Ao Arch Diam (Prox Trans): 2.5 cm LVPWd: 0.74 cm LV velazquez. diameter/BSA (cm/m^2): 2.2 LV sys. diameter/BSA (cm/m^2): 1.6 LA A2 area: 16.9 cm2 RA long axis: 4.9 cm LA A4 area: 18.5 cm2 RA area: 15.8 cm2 LA length (vol): 5.5 cm RA vol: 43.6 ml LA vol: 48.5 ml RA : 25.0 ml/m2 LA vol index: 27.8 ml/m2 IVC diam: 1.4 cm RVD1 (basal): 4.0 cm TAPSE: 2.1 cm Doppler Measurements & Calculations Ao V2 max: 167.5 cm/sec LVOT Max Scott: 135.9 cm/sec Ao V2 mean: 113.4 cm/sec LV V1 max P.4 mmHg Ao max P.2 mmHg LV V1 VTI: 18.9 cm Ao mean P.9 mmHg VIC(I,D): 2.1 cm2 Ao V2 VTI: 27.4 cm VIC(V,D): 2.5 cm2 sev ratio: 0.69 VIC indexed to BSA (cm^2/m^2): 1.2 MV E max scott: 90.0 cm/sec PA V2 max: 101.7 cm/sec MV A max scott: 126.0 cm/sec PA V2 mean: 67.8 cm/sec MV E/A: 0.71 PA mean P.1 mmHg Med Peak E' Scott: 7.3 cm/sec PA pr(Accel): 48.2 mmHg E/E' med: 12.3 Lat Peak E' Scott: 10.2 cm/sec E/E' lat: 8.9 E/e' average: 10.6 MV dec time: 0.23 sec SVLVOT): 58.2 ml Reading Physician:CAROLE
[2021-08-01 01:53] LABS: Cholesterol 164 mg/dL (140-199); HDL Cholesterol 53 mg/dL (40-60); LDL Cholesterol Calculated 89 mg/dL (<100); Magnesium 1.9 mg/dL (1.6-2.3); Triglycerides 109 mg/dL (35-150)
[2021-08-01 02:25] LABS: Thyroid Stimulating Hormone 5.16 uIU/mL (0.47-4.68)
[2021-08-01] MEDS: PROPRANOLOL 10 MG TABLET 20 MG PO ×3 (04:29→20:23)
[2021-08-01] MEDS: POTASSIUM CHLORIDE IN WATER 10 MEQ/100 ML PIGGYBACK 100 MEQ IV (04:30)
--- NOTE | 2021-08-01 05:30 | PC.NURSE ---
Wound culture obtained, however wound was very dry and scabbed.
[2021-08-01 06:04] LABS: Add Manual Diff / Slide Review NO; Basophils Absolute Auto 0 /uL (0-100); Basophils Percent Auto 0.2 % (0-2); Eosinophils Absolute Auto 0 /uL (0-450); Eosinophils Percent Auto 0.2 % (2-4); Hemoglobin 12.2 g/dL (12.0-16.0); Lymphocytes Absolute Auto 1100 /uL (1100-4500); Lymphocytes Percent Auto 8.3 % (25-40); Mean Corpuscular HGB Conc 32.9 % (30-36); Mean Corpuscular Hemoglobin 28.9 PG (26-34); Mean Corpuscular Volume 87.8 fL (80-100); Monocytes Absolute Auto 1100 /uL (0-900); Monocytes Percent Auto 7.9 % (3-14); Neutrophils Absolute Auto 11200 /uL (1500-7000); Neutrophils Percent Auto 83.4 % (50-75); Platelet Count 303 X10^3/uL (150-400); Red Blood Cell Count 4.22 X10^6/uL (4.0-5.2); Red Cell Distribution Width 16.7 % (11.6-14.8); White Blood Cell Count 13.4 X10^3/uL (4.5-11.0)
[2021-08-01 06:14] LABS: Alanine Aminotransferase 24 IU/L (<35); Albumin 3.4 g/dL (3.5-5.0); Alkaline Phosphatase 129 U/L (38-126); Aspartate Aminotransferase 39 IU/L (14-36); BUN Creatinine Ratio 37.5 (6-22); Bilirubin Total 0.6 mg/dL (0.2-1.3); Blood Urea Nitrogen 21 mg/dL (7-17); Carbon Dioxide 31 mmol/L (22-32); Chloride 111 mmol/L (98-107); Estimated Glomerular Filt Rate > 60.0 mL/min (>60); Globulin 3.4 g/dL (1.7-4.1); Glucose 98 mg/dL (70-100); HEMOLYSIS < 15 (0-50); Potassium 3.5 mmol/L (3.4-5.1); Sodium 146 mmol/L (137-145); Total Protein 6.8 g/dL (6.3-8.2)
[2021-08-01 06:31] LABS: NT-proBNP (BNP-Adult 18+) 804 pg/mL (<125)
[2021-08-01 06:39] LABS: Procalcitonin 0.08 ng/mL (<0.5)
[2021-08-01 06:54] LABS: Troponin I 0.121 ng/mL (0.01-0.034)
[2021-08-01 07:24] LABS: Appearance Urine UA CLEAR; Bilirubin Urine UA 2+ (NEGATIVE); Color Urine UA YELLOW; Glucose Urine UA NEGATIVE (Negative); Ketones Urine UA 2+ (NEGATIVE); Leukocyte Esterase Urine UA NEGATIVE (NEGATIVE); Nitrite Urine UA NEGATIVE (Negative); Occult Blood Urine UA NEGATIVE (Negative); Protein Urine UA 1+ (Negative); Urobilinogen Urine UA 0.2 E.U./dL (0.2)
[2021-08-01 07:25] LABS: pH Urine UA 6.5 (4.5-8.0)
[2021-08-01 07:26] LABS: Ictotest Urine Negative (Negative)
[2021-08-01 07:28] LABS: Bacteria Urine None Seen; Culture Indicated Urine Cult Not Indicated; RBC Urine None Seen (0-5/HPF); Urine Comments Microscopic Normal; WBC Urine None Seen (0-5/HPF)
--- NOTE | 2021-08-01 08:02 | P.HP_ITS ---
History of Present Illness History of Present Illness Date Patient Seen: 07/31/21 Time Patient Seen: 23:00 Chief complaint: Confusion Narrative: Rebekah Washington is a 51-year-old female with a medical history of generalized anxiety disorder with panic attacks, major depressive route disorder moderate recurrent, alcohol dependence severe, peripheral neuropathy and obstructive sleep apnea who was brought into the ED via EMS for respiratory distress and altered mental s tatus. EMS reported that and the patient's mother verbalized that the patient had had worsening confusion over the last couple days, unknown etiology. Patient is unable to state her name or date of upon admit. Patient is unable to participate in HPI or ROS due to altered mental status, grossly confused. EMS was reported to have been called out to the patients home several days ago for altered mental status however the patient did not want to come to the ER and she was deemed at that time to be able to make decisions.? Patient was found to be in respiratory distress, Hypoxic into the 80s, and improved with oxygen by non-rebreather by EMS.? Patient has no signs of trauma, obvious illn ess, or injury.? Patient is resting in bed upon admit in no distress at this time but continues to desaturate, has increasing 02 demand. Vital signs upon admit patient is afebrile temp 98.8?, BP 144/95, tachycardic HR 107, tachypneic RR 25, patient is requiring 9 L high-flow oxygenation for an O2 saturation 93%. ABGs or grossly within normal limits with the exception of a pCO2 46. Patient demonstrated a white count 12.3, left shift neut# 10,600, potassium 2.9, chloride 111, glucose 119, AST 53, alk-phos 137, lactate WNL, total creatinine kinase 323, CK-MB 3.21, index 1.0%, troponin 1. 0.205, 2. 0.195. Lipase, lactate, and procalcitonin within normal limits, urinalysis dip was not cultured, BNP 1690, blood cultures collected in ED, ammonia WNL. Patient may it SIRS criteria in ED, sofa score 3. Patient admitted for altered mental status, acute respiratory failure with hypoxia and hypokalemia, secondary to pneumonia. 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) Family & Social History Family History Grandmother Cancer Mental health problem Mother Age: 73 Mental health disorder Sister Age: 55 Heart disease Hypertension High cholesterol Mental health problem Asthma COPD (chronic obstructive pulmonary disease) Social History: household members spouse,other Safety & Behavioral: Suicidal Ideation Description None Suicide Plan Description No Plan Tobacco & Substance use: Tobacco type cigarettes Smoking Status Current every day smoker alcohol intake former Substance Use Type does not use Meds Home Medications and Allergies Home Medications Medication Instructions Recorded Confirmed Type albuterol sulfate 90 mcg/actuation 2 puff INHALATION Q4H PRN #1 each 12/30/17 08/01/21 Rx breath activated powder inhaler hydroxyzine HCl 50 mg tablet 50 mg PO BID PRN #180 tab 02/07/21 08/01/21 Rx acetaminophen 500 mg capsule 500 mg PO Q4H PRN #90 cap MDD Max 04/03/21 08/01/21 Rx 6 tabs per day ibuprofen 400 mg tablet 400 mg PO Q4HR PRN #90 tab MDD Max 04/03/21 08/01/21 Rx 2400 mg per day gabapentin 300 mg capsule 300 mg PO TID #90 cap 05/08/21 08/01/21 Rx clonazepam 0.5 mg tablet 0.5 mg PO BID PRN #60 tab 07/17/21 08/01/21 Rx escitalopram oxalate 20 mg tablet 20 mg PO DAILY #90 tab 07/19/21 08/01/21 Rx ondansetron HCl 8 mg tablet 8 mg PO BID-TID PRN #180 tab 07/26/21 08/01/21 Rx propranolol 20 mg tablet 20 mg PO BID #180 tab 07/27/21 08/01/21 Rx risperidone 0.5 mg tablet See Rx Instructions PO DAILY #90 07/27/21 08/01/21 Rx tab Allergies Allergy/AdvReac Type Severity Reaction Status Date / Time No Known Drug Allergies Allergy Verified 03/31/21 17:48 Review of Systems Review of Systems Narrative: Unable to obtain ROS due to patient's altered mental status. Exam Vital Signs (past 8 hours): - 08/01/21 01:01 08/01/21 01:22 08/01/21 04:00 Temperature 98.4 F 98.6 F Pulse Rate 109 H 115 H Respiratory Rate 109 H 22 Blood Pressure 141/88 H Pulse Oximetry 88 L 93 93 Oxygen Delivery Method High Flow Nasal Cannula Oxygen Flow Rate 7 Narrative Exam Narrative: General: Patient is a well-developed, well-nourished cooperative female, who is plesantly confused, in no distress at this time. HEENT: Normocephalic, atraumatic, extraocular muscles intact, oral pharynx is clear and mucous membranes are moist. Neck is supple and symmetric, trachea is midline, no adenopathy, no thyroid enlargement, nontender, no masses palpated. Negative for JVD Chest: Normal AP diameter and contour without kyphoscoliosis, no nasal flaring, retractions. Positive tachypneic labored breathing. Lungs: Auscultation of all lung hart are coarse, with rhonchi. Cardio: Tachycardic rate and rhythm without murmur, rubs, or gallops, no carotid bruit, no cardiac pulsations present. Abdomen: Soft nontender, negative for organomegaly, or masses. Bowel sounds are present in all 4 quadrants without guarding or rebound, no CVA tenderness. Musculoskeletal: Muscle strength and tone are equal within normal limits, no deformity, crepitus, effusions, cyanosis, clubbing or edema present. Full range of motion intact radial and pedal pulses are normal. Skin: Left hand: wounds to 1st & 3rd finger, Right wrist: erythemic raised area, Right hand: small wound to 3rd finger. yeast under bilateral breasts. Wa rm dry and intact without rashes, ulcerations or petechiae. Neuro: Alert and orientated x3, strength is +5/5 in all extremities, sensation to touch intact, no gross deficits noted of cranial nerves. Psych: Patient has a well-kept appearance, appropriate affect. Objective Labs Result Diagrams: 08/01/21 05:37 08/01/21 05:37 Labs: Laboratory Results - last 24 hr 07/31/21 07/31/21 07/31/21 16:15 16:15 16:15 WBC 12.3 H RBC 4.32 Hgb 12.5 Hct 37.5 MCV 86.9 MCH 28.9 MCHC 33.3 RDW 16.4 H Plt Count 307 Neut % (Auto) 86.3 H Lymph % (Auto) 7.6 L [place] % (Auto) 5.9 Eos % (Auto) 0.0 L Baso % (Auto) 0.2 Neut # (Auto) 77880 H Lymph # (Auto) 900 L [place] # (Auto) 700 Eos # (Auto) 0 Baso # (Auto) 0 PT 12.6 INR 1.1 APTT 32 ABG pH ABG pCO2 ABG pO2 ABG HCO3 ABG Total CO2 ABG O2 Saturation ABG Base Excess FiO2 Sodium 145 Potassium 2.9 L Chloride 111 H Carbon Dioxide 27 BUN 16 Creatinine 0.57 Estimated GFR > 60.0 BUN/Creatinine Ratio 28.1 H Glucose 119 H Lactate Calcium 10.0 Magnesium Total Bilirubin 0.8 AST 53 H ALT 27 Alkaline Phosphatase 137 H Ammonia Total Creatine Kinase 323 H CK-MB (CK-2) 3.21 H CK-MB (CK-2) Rel Index 1.0 L Troponin I 0.205 H* NT-Pro-B Natriuret Pep 1690 H Total Protein 7.0 Albumin 3.6 Globulin 3.4 Albumin/Globulin Ratio 1.1 Triglycerides Cholesterol LDL Cholesterol, Calc HDL Cholesterol Lipase 98 Procalcitonin 0.10 TSH Urine Color Urine Appearance Urine pH Ur Specific [place] Urine Protein Urine Glucose (UA) Urine Ketones Urine Occult Blood Urine Nitrate Urine Bilirubin Ur Bilirubin Confirm Urine Urobilinogen Ur Leukocyte Esterase Urine RBC Urine WBC Ur Squamous Epith Cells Amorphous Sediment Urine Bacteria Hyaline Casts Granular Casts Urine Mucus Ur Culture Indicated? Micro UA Comment Urine Test Salicylates U Opiates 300ng/mL cut Ur Oxycodone Screen Urine Methadone Screen Acetaminophen Ur Barbiturates Screen U Tricyclic Antidepress Ur Phencyclidine Scrn Ur Amphetamines Screen U Methamphetamines Scrn Ur MDMA Scrn (Ecstasy) U Benzodiazepines Scrn Urine Cocaine Screen U Marijuana (THC) Screen Ethyl Alcohol Chlamy pneumoniae PCR Adenovirus (PCR) B. pertussis DNA (PCR) B.parapertussis DNA PCR Coronavirus OC43 (PCR) Coronavirus HKU1 (PCR) Coronavirus 229E (PCR) SARS-CoV-2 (PCR) Coronavirus NL63 (PCR) Human Metapneumovir PCR Influenza Type A (PCR) Influenza Type B (PCR) M. pneumoniae (PCR) Parainfluenza 1 (PCR) Parainfluenza 2 (PCR) Parainfluenza 3 (PCR) Parainfluenza 4 (PCR) RSV (PCR) Entero/Rhino (PCR) 07/31/21 07/31/21 07/31/21 16:15 16:15 16:15 WBC RBC Hgb Hct MCV MCH MCHC RDW Plt Count Neut % (Auto) Lymph % (Auto) [place] % (Auto) Eos % (Auto) Baso % (Auto) Neut # (Auto) Lymph # (Auto) [place] # (Auto) Eos # (Auto) Baso # (Auto) PT INR APTT ABG pH ABG pCO2 ABG pO2 ABG HCO3 ABG Total CO2 ABG O2 Saturation ABG Base Excess FiO2 Sodium Potassium Chloride Carbon Dioxide BUN Creatinine Estimated GFR BUN/Creatinine Ratio Glucose Lactate 1.1 Calcium Magnesium Total Bilirubin AST ALT Alkaline Phosphatase Ammonia Total Creatine Kinase CK-MB (CK-2) CK-MB (CK-2) Rel Index Troponin I NT-Pro-B Natriuret Pep Total Protein Albumin Globulin Albumin/Globulin Ratio Triglycerides Cholesterol LDL Cholesterol, Calc HDL Cholesterol Lipase Procalcitonin TSH Urine Color Urine Appearance Urine pH Ur Specific [place] Urine Protein Urine Glucose (UA) Urine Ketones Urine Occult Blood Urine Nitrate Urine Bilirubin Ur Bilirubin Confirm Urine Urobilinogen Ur Leukocyte Esterase Urine RBC Urine WBC Ur Squamous Epith Cells Amorphous Sediment Urine Bacteria Hyaline Casts Granular Casts Urine Mucus Ur Culture Indicated? Micro UA Comment Urine Test Salicylates < 1.0 U Opiates 300ng/mL cut Ur Oxycodone Screen Urine Methadone Screen Acetaminophen < 10 L Ur Barbiturates Screen U Tricyclic Antidepress Ur Phencyclidine Scrn Ur Amphetamines Screen U Methamphetamines Scrn Ur MDMA Scrn (Ecstasy) U Benzodiazepines Scrn Urine Cocaine Screen U Marijuana (THC) Screen Ethyl Alcohol < 10 Chlamy pneumoniae PCR Adenovirus (PCR) B. pertussis DNA (PCR) B.parapertussis DNA PCR Coronavirus OC43 (PCR) Coronavirus HKU1 (PCR) Coronavirus 229E (PCR) SARS-CoV-2 (PCR) Coronavirus NL63 (PCR) Human Metapneumovir PCR Influenza Type A (PCR) Influenza Type B (PCR) M. pneumoniae (PCR) Parainfluenza 1 (PCR) Parainfluenza 2 (PCR) Parainfluenza 3 (PCR) Parainfluenza 4 (PCR) RSV (PCR) Entero/Rhino (PCR) 07/31/21 07/31/21 07/31/21 16:15 16:15 16:15 WBC RBC Hgb Hct MCV MCH MCHC RDW Plt Count Neut % (Auto) Lymph % (Auto) [place] % (Auto) Eos % (Auto) Baso % (Auto) Neut # (Auto) Lymph # (Auto) [place] # (Auto) Eos # (Auto) Baso # (Auto) PT INR APTT ABG pH ABG pCO2 ABG pO2 ABG HCO3 ABG Total CO2 ABG O2 Saturation ABG Base Excess FiO2 Sodium Potassium Chloride Carbon Dioxide BUN Creatinine Estimated GFR BUN/Creatinine Ratio Glucose Lactate Calcium Magnesium 1.9 Total Bilirubin AST ALT Alkaline Phosphatase Ammonia Total Creatine Kinase CK-MB (CK-2) CK-MB (CK-2) Rel Index Troponin I NT-Pro-B Natriuret Pep Total Protein Albumin Globulin Albumin/Globulin Ratio Triglycerides 109 Cholesterol 164 LDL Cholesterol, Calc 89 HDL Cholesterol 53 Lipase Procalcitonin TSH 5.16 H Urine Color Urine Appearance Urine pH Ur Specific Manning Urine Protein Urine Glucose (UA) Urine Ketones Urine Occult Blood Urine Nitrate Urine Bilirubin Ur Bilirubin Confirm Urine Urobilinogen Ur Leukocyte Esterase Urine RBC Urine WBC Ur Squamous Epith Cells Amorphous Sediment Urine Bacteria Hyaline Casts Granular Casts Urine Mucus Ur Culture Indicated? Micro UA Comment Urine Test Salicylates U Opiates 300ng/mL cut Ur Oxycodone Screen Urine Methadone Screen Acetaminophen Ur Barbiturates Screen U Tricyclic Antidepress Ur Phencyclidine Scrn Ur Amphetamines Screen U Methamphetamines Scrn Ur MDMA Scrn (Ecstasy) U Benzodiazepines Scrn Urine Cocaine Screen U Marijuana (THC) Screen Ethyl Alcohol Chlamy pneumoniae PCR Adenovirus (PCR) B. pertussis DNA (PCR) B.parapertussis DNA PCR Coronavirus OC43 (PCR) Coronavirus HKU1 (PCR) Coronavirus 229E (PCR) SARS-CoV-2 (PCR) Coronavirus NL63 (PCR) Human Metapneumovir PCR Influenza Type A (PCR) Influenza Type B (PCR) M. pneumoniae (PCR) Parainfluenza 1 (PCR) Parainfluenza 2 (PCR) Parainfluenza 3 (PCR) Parainfluenza 4 (PCR) RSV (PCR) Entero/Rhino (PCR) 07/31/21 07/31/21 07/31/21 16:26 16:30 16:30 WBC RBC Hgb Hct MCV MCH MCHC RDW Plt Count Neut % (Auto) Lymph % (Auto) [place] % (Auto) Eos % (Auto) Baso % (Auto) Neut # (Auto) Lymph # (Auto) [place] # (Auto) Eos # (Auto) Baso # (Auto) PT INR APTT ABG pH ABG pCO2 ABG pO2 ABG HCO3 ABG Total CO2 ABG O2 Saturation ABG Base Excess FiO2 Sodium Potassium Chloride Carbon Dioxide BUN Creatinine Estimated GFR BUN/Creatinine Ratio Glucose Lactate Calcium Magnesium Total Bilirubin AST ALT Alkaline Phosphatase Ammonia Total Creatine Kinase CK-MB (CK-2) CK-MB (CK-2) Rel Index Troponin I NT-Pro-B Natriuret Pep Total Protein Albumin Globulin Albumin/Globulin Ratio Triglycerides Cholesterol LDL Cholesterol, Calc HDL Cholesterol Lipase Procalcitonin TSH Urine Color Yellow Urine Appearance Clear Urine pH 6.5 Ur Specific [place] 1.025 Urine Protein 2+ H Urine Glucose (UA) Negative Urine Ketones 3+ H Urine Occult Blood Negative Urine Nitrate Negative Urine Bilirubin 1+ H Ur Bilirubin Confirm Negative Urine Urobilinogen 0.2 Ur Leukocyte Esterase Negative Urine RBC None seen Urine WBC 1-5/hpf Ur Squamous Epith Cells 1-5 /hpf D Amorphous Sediment 1+ Urine Bacteria None seen Hyaline Casts 1-5/lpf Granular Casts 0-1/lpf Urine Mucus 1+ H Ur Culture Indicated? Cult not indicated Micro UA Comment Urine Test Negative Salicylates U Opiates 300ng/mL cut Ur Oxycodone Screen Urine Methadone Screen Acetaminophen Ur Barbiturates Screen U Tricyclic Antidepress Ur Phencyclidine Scrn Ur Amphetamines Screen U Methamphetamines Scrn Ur MDMA Scrn (Ecstasy) U Benzodiazepines Scrn Urine Cocaine Screen U Marijuana (THC) Screen Ethyl Alcohol Chlamy pneumoniae PCR Adenovirus (PCR) B. pertussis DNA (PCR) B.parapertussis DNA PCR Coronavirus OC43 (PCR) Coronavirus HKU1 (PCR) Coronavirus 229E (PCR) SARS-CoV-2 (PCR) Negative Coronavirus NL63 (PCR) Human Metapneumovir PCR Influenza Type A (PCR) Influenza Type B (PCR) M. pneumoniae (PCR) Parainfluenza 1 (PCR) Parainfluenza 2 (PCR) Parainfluenza 3 (PCR) Parainfluenza 4 (PCR) RSV (PCR) Entero/Rhino (PCR) 07/31/21 07/31/21 07/31/21 16:30 18:35 18:44 WBC RBC Hgb Hct MCV MCH MCHC RDW Plt Count Neut % (Auto) Lymph % (Auto) [place] % (Auto) Eos % (Auto) Baso % (Auto) Neut # (Auto) Lymph # (Auto) [place] # (Auto) Eos # (Auto) Baso # (Auto) PT INR APTT ABG pH 7.35 ABG pCO2 46.0 H ABG pO2 82 ABG HCO3 25 ABG Total CO2 27 ABG O2 Saturation 95 ABG Base Excess 0.0 FiO2 40 Sodium Potassium Chloride Carbon Dioxide BUN Creatinine Estimated GFR BUN/Creatinine Ratio Glucose Lactate Calcium Magnesium Total Bilirubin AST ALT Alkaline Phosphatase Ammonia Total Creatine Kinase CK-MB (CK-2) CK-MB (CK-2) Rel Index Troponin I NT-Pro-B Natriuret Pep Total Protein Albumin Globulin Albumin/Globulin Ratio Triglycerides Cholesterol LDL Cholesterol, Calc HDL Cholesterol Lipase Procalcitonin TSH Urine Color Urine Appearance Urine pH Ur Specific [place] Urine Protein Urine Glucose (UA) Urine Ketones Urine Occult Blood Urine Nitrate Urine Bilirubin Ur Bilirubin Confirm Urine Urobilinogen Ur Leukocyte Esterase Urine RBC Urine WBC Ur Squamous Epith Cells Amorphous Sediment Urine Bacteria Hyaline Casts Granular Casts Urine Mucus Ur Culture Indicated? Micro UA Comment Urine Test Salicylates U Opiates 300ng/mL cut Negative Ur Oxycodone Screen Negative Urine Methadone Screen Negative Acetaminophen Ur Barbiturates Screen Negative U Tricyclic Antidepress Negative Ur Phencyclidine Scrn Negative Ur Amphetamines Screen Negative U Methamphetamines Scrn Negative Ur MDMA Scrn (Ecstasy) Negative U Benzodiazepines Scrn Positive H Urine Cocaine Screen Negative U Marijuana (THC) Screen Negative Ethyl Alcohol Chlamy pneumoniae PCR Not detected Adenovirus (PCR) Not detected B. pertussis DNA (PCR) Not detected B.parapertussis DNA PCR Not detected Coronavirus OC43 (PCR) Not detected Coronavirus HKU1 (PCR) Not detected Coronavirus 229E (PCR) Not detected SARS-CoV-2 (PCR) Not detected Coronavirus NL63 (PCR) Not detected Human Metapneumovir PCR Not detected Influenza Type A (PCR) Not detected Influenza Type B (PCR) Not detected M. pneumoniae (PCR) Not detected Parainfluenza 1 (PCR) Not detected Parainfluenza 2 (PCR) Not detected Parainfluenza 3 (PCR) Not detected Parainfluenza 4 (PCR) Not detected RSV (PCR) Not detected Entero/Rhino (PCR) Not detected 07/31/21 07/31/21 08/01/21 19:47 19:47 05:37 WBC RBC Hgb Hct MCV MCH MCHC RDW Plt Count Neut % (Auto) Lymph % (Auto) [place] % (Auto) Eos % (Auto) Baso % (Auto) Neut # (Auto) Lymph # (Auto) [place] # (Auto) Eos # (Auto) Baso # (Auto) PT INR APTT ABG pH ABG pCO2 ABG pO2 ABG HCO3 ABG Total CO2 ABG O2 Saturation ABG Base Excess FiO2 Sodium Potassium Chloride Carbon Dioxide BUN Creatinine Estimated GFR BUN/Creatinine Ratio Glucose Lactate Calcium Magnesium Total Bilirubin AST ALT Alkaline Phosphatase Ammonia 10 Total Creatine Kinase CK-MB (CK-2) CK-MB (CK-2) Rel Index Troponin I 0.195 H* NT-Pro-B Natriuret Pep 804 H Total Protein Albumin Globulin Albumin/Globulin Ratio Triglycerides Cholesterol LDL Cholesterol, Calc HDL Cholesterol Lipase Procalcitonin TSH Urine Color Urine Appearance Urine pH Ur Specific [place] Urine Protein Urine Glucose (UA) Urine Ketones Urine Occult Blood Urine Nitrate Urine Bilirubin Ur Bilirubin Confirm Urine Urobilinogen Ur Leukocyte Esterase Urine RBC Urine WBC Ur Squamous Epith Cells Amorphous Sediment Urine Bacteria Hyaline Casts Granular Casts Urine Mucus Ur Culture Indicated? Micro UA Comment Urine Test Salicylates U Opiates 300ng/mL cut Ur Oxycodone Screen Urine Methadone Screen Acetaminophen Ur Barbiturates Screen U Tricyclic Antidepress Ur Phencyclidine Scrn Ur Amphetamines Screen U Methamphetamines Scrn Ur MDMA Scrn (Ecstasy) U Benzodiazepines Scrn Urine Cocaine Screen U Marijuana (THC) Screen Ethyl Alcohol Chlamy pneumoniae PCR Adenovirus (PCR) B. pertussis DNA (PCR) B.parapertussis DNA PCR Coronavirus OC43 (PCR) Coronavirus HKU1 (PCR) Coronavirus 229E (PCR) SARS-CoV-2 (PCR) Coronavirus NL63 (PCR) Human Metapneumovir PCR Influenza Type A (PCR) Influenza Type B (PCR) M. pneumoniae (PCR) Parainfluenza 1 (PCR) Parainfluenza 2 (PCR) Parainfluenza 3 (PCR) Parainfluenza 4 (PCR) RSV (PCR) Entero/Rhino (PCR) 08/01/21 08/01/21 08/01/21 05:37 05:37 05:37 WBC 13.4 H RBC 4.22 Hgb 12.2 Hct 37.0 MCV 87.8 MCH 28.9 MCHC 32.9 RDW 16.7 H Plt Count 303 Neut % (Auto) 83.4 H Lymph % (Auto) 8.3 L [place] % (Auto) 7.9 Eos % (Auto) 0.2 L Baso % (Auto) 0.2 Neut # (Auto) 02948 H Lymph # (Auto) 1100 [place] # (Auto) 1100 H Eos # (Auto) 0 Baso # (Auto) 0 PT INR APTT ABG pH ABG pCO2 ABG pO2 ABG HCO3 ABG Total CO2 ABG O2 Saturation ABG Base Excess FiO2 Sodium 146 H Potassium 3.5 Chloride 111 H Carbon Dioxide 31 BUN 21 H Creatinine 0.56 Estimated GFR > 60.0 BUN/Creatinine Ratio 37.5 H Glucose 98 Lactate Calcium 10.0 Magnesium Total Bilirubin 0.6 AST 39 H ALT 24 Alkaline Phosphatase 129 H Ammonia Total Creatine Kinase CK-MB (CK-2) CK-MB (CK-2) Rel Index Troponin I 0.121 H* NT-Pro-B Natriuret Pep Total Protein 6.8 Albumin 3.4 L Globulin 3.4 Albumin/Globulin Ratio 1.0 Triglycerides Cholesterol LDL Cholesterol, Calc HDL Cholesterol Lipase Procalcitonin 0.08 TSH Urine Color Urine Appearance Urine pH Ur Specific [place] Urine Protein Urine Glucose (UA) Urine Ketones Urine Occult Blood Urine Nitrate Urine Bilirubin Ur Bilirubin Confirm Urine Urobilinogen Ur Leukocyte Esterase Urine RBC Urine WBC Ur Squamous Epith Cells Amorphous Sediment Urine Bacteria Hyaline Casts Granular Casts Urine Mucus Ur Culture Indicated? Micro UA Comment Urine Test Salicylates U Opiates 300ng/mL cut Ur Oxycodone Screen Urine Methadone Screen Acetaminophen Ur Barbiturates Screen U Tricyclic Antidepress Ur Phencyclidine Scrn Ur Amphetamines Screen U Methamphetamines Scrn Ur MDMA Scrn (Ecstasy) U Benzodiazepines Scrn Urine Cocaine Screen U Marijuana (THC) Screen Ethyl Alcohol Chlamy pneumoniae PCR Adenovirus (PCR) B. pertussis DNA (PCR) B.parapertussis DNA PCR Coronavirus OC43 (PCR) Coronavirus HKU1 (PCR) Coronavirus 229E (PCR) SARS-CoV-2 (PCR) Coronavirus NL63 (PCR) Human Metapneumovir PCR Influenza Type A (PCR) Influenza Type B (PCR) M. pneumoniae (PCR) Parainfluenza 1 (PCR) Parainfluenza 2 (PCR) Parainfluenza 3 (PCR) Parainfluenza 4 (PCR) RSV (PCR) Entero/Rhino (PCR) 08/01/21 07:19 WBC RBC Hgb Hct MCV MCH MCHC RDW Plt Count Neut % (Auto) Lymph % (Auto) [place] % (Auto) Eos % (Auto) Baso % (Auto) Neut # (Auto) Lymph # (Auto) [place] # (Auto) Eos # (Auto) Baso # (Auto) PT INR APTT ABG pH ABG pCO2 ABG pO2 ABG HCO3 ABG Total CO2 ABG O2 Saturation ABG Base Excess FiO2 Sodium Potassium Chloride Carbon Dioxide BUN Creatinine Estimated GFR BUN/Creatinine Ratio Glucose Lactate Calcium Magnesium Total Bilirubin AST ALT Alkaline Phosphatase Ammonia Total Creatine Kinase CK-MB (CK-2) CK-MB (CK-2) Rel Index Troponin I NT-Pro-B Natriuret Pep Total Protein Albumin Globulin Albumin/Globulin Ratio Triglycerides Cholesterol LDL Cholesterol, Calc HDL Cholesterol Lipase Procalcitonin TSH Urine Color Yellow Urine Appearance Clear Urine pH 6.5 Ur Specific [place] 1.010 Urine Protein 1+ H Urine Glucose (UA) Negative Urine Ketones 2+ H Urine Occult Blood Negative Urine Nitrate Negative Urine Bilirubin 2+ H Ur Bilirubin Confirm Negative Urine Urobilinogen 0.2 Ur Leukocyte Esterase Negative Urine RBC None seen Urine WBC None seen Ur Squamous Epith Cells Amorphous Sediment Urine Bacteria None seen Hyaline Casts Granular Casts Urine Mucus Ur Culture Indicated? Cult not indicated Micro UA Comment Microscopic normal Urine Test Salicylates U Opiates 300ng/mL cut Ur Oxycodone Screen Urine Methadone Screen Acetaminophen Ur Barbiturates Screen U Tricyclic Antidepress Ur Phencyclidine Scrn Ur Amphetamines Screen U Methamphetamines Scrn Ur MDMA Scrn (Ecstasy) U Benzodiazepines Scrn Urine Cocaine Screen U Marijuana (THC) Screen Ethyl Alcohol Chlamy pneumoniae PCR Adenovirus (PCR) B. pertussis DNA (PCR) B.parapertussis DNA PCR Coronavirus OC43 (PCR) Coronavirus HKU1 (PCR) Coronavirus 229E (PCR) SARS-CoV-2 (PCR) Coronavirus NL63 (PCR) Human Metapneumovir PCR Influenza Type A (PCR) Influenza Type B (PCR) M. pneumoniae (PCR) Parainfluenza 1 (PCR) Parainfluenza 2 (PCR) Parainfluenza 3 (PCR) Parainfluenza 4 (PCR) RSV (PCR) Entero/Rhino (PCR) Assessment & Plan Assessment & Plan narrative: Rebekah Washington is a 51-year-old female with a medical history of generalized anxiety disorder with panic attacks, major depressive route disorder moderate recurrent, alcohol dependence severe, peripheral neuropathy and obstructive sleep apnea who was brought into the ED via EMS for respiratory distress and altered mental status. Patient admitted for altered mental status of unknown etiology, acute respiratory failure with hypoxia and hypokalemia likely secondary to pneumonia. 1. Altered mental status, acute, present on admission -unsure as to the etiology of altered mental status. -concerned possible alcohol mixed with benzodiazepines, and or head injury as we are unable to obtain accurate history. Will continue to monitor patient closely. Holding patient's medications until mental status returns to baseline. -blood and wound cultures, salicylate, acetaminophen, EtOH, CRP, sed rate, BNP -neuro checks Q shift -MR ordered -tele med -the patient's nurse found out that the patient's spouse had lost his insurance and so they were unable to afford her medications for an undisclosed amount of time. 2. Acute respiratory failure with hypoxia and hypokalemia, acute, in the setting of FLORIN, present on admission -likely the result of pneumonia, suggestive per chest x-ray. -patient is on 9 L high-flow at 93% O2 saturation -respiratory consult -possible pneumonia on chest x-ray 3. History alcohol dependence, severe, with a history of alcohol withdrawal s eizures, chronic, present on admission -patient placed on CIWA protocol -concerns for Wernicke encephalopathy 4. Tobacco dependence, chronic, present on admission -offer nicotine 5. Generalized anxiety with panic attacks, setting of major depressive disorder, reoccurring, moderate, chronic, present on admission -Holding these medications until patient's confusion resolves. Patient's chart reflects risperidone, Celexa, per panel, clonazepam Code status:Full Surrogate decision maker: Vick Washington Spouse COVID PCR:Negative DVT/VTE prophylaxis: Lovenox and SCDs Disposition: Patient admitted to the medical service, estimated length of stay greater than 2 midnights I have utilized all available immediate resources to obtain, update, or review the patient's current medications. I confirmed that the patient's advanced care plan is present, Code status is documented and/or surrogate decision maker is listed in the patient's medical record. Time Spent With Patient Critical Care time: I spent a total of [] minutes of critical care time on this patient's care today; this time is exclusive of procedural time. Scores GCS Lana coma scale eye opening: Spontaneous [place] coma scale verbal response: Orientated Lana coma scale motor response: Obey commands [place] coma scale total score: 15
[2021-08-01] MEDS: cefTRIAXone 1,000 MG in SODIUM CHLORIDE 0.9% 100 ML 200 ML IV (08:56)
[2021-08-01] MEDS: ENOXAPARIN 40 MG/0.4 ML SYRINGE SUBCUT (08:57)
[2021-08-01] MEDS: ASPIRIN EC 81 MG TABLET PO (08:57)
[2021-08-01] MEDS: FOLIC ACID 1 MG TABLET PO (08:57)
[2021-08-01] MEDS: MULTIVITAMIN 1 TABLET 1 TAB PO (08:57)
[2021-08-01] MEDS: THIAMINE 100 MG TABLET PO (08:58)
[2021-08-01] MEDS: AZITHROMYCIN 500 MG in DEXTROSE 5% IN WATER 250 ML IV (09:38)
--- NOTE | 2021-08-01 14:18 | PM.PN.1 ---
Subjective Subjective Date Patient Seen: 08/01/21 Time Patient Seen: 14:18 Interval history: Reports she feels well, does not remember why she is in the hospital. No complaints of chest pain, cough, shortness of breath. Exam Vital Signs (past 8 hours): - 08/01/21 07:43 08/01/21 08:00 08/01/21 11:09 Temperature 98.6 F 98.9 F Pulse Rate 97 H 99 H Respiratory Rate 18 18 Blood Pressure 144/99 H 140/88 Pulse Oximetry 93 92 91 Oxygen Delivery Method High Flow Nasal Cannula Oxygen Flow Rate 7 Narrative Exam Narrative: Gen: well developed, disheveled female in no acute distress. CV: RRR no m/r/g Pulm: bibasilar rhonchi without wheezing, decreased effort Abd: S NT ND Ext: multiple bruises and scabs, notable on hands and distal extremities. No edema Neuro: Alert and oriented to person, city, year but does not know date. Objective Labs Result Diagrams: 08/01/21 05:37 08/01/21 05:37 Labs: Laboratory Results - last 24 hr 07/31/21 07/31/21 07/31/21 16:15 16:15 16:15 WBC 12.3 H RBC 4.32 Hgb 12.5 Hct 37.5 MCV 86.9 MCH 28.9 MCHC 33.3 RDW 16.4 H Plt Count 307 Neut % (Auto) 86.3 H Lymph % (Auto) 7.6 L Williams % (Auto) 5.9 Eos % (Auto) 0.0 L Baso % (Auto) 0.2 Neut # (Auto) 86535 H Lymph # (Auto) 900 L Williams # (Auto) 700 Eos # (Auto) 0 Baso # (Auto) 0 PT 12.6 INR 1.1 APTT 32 ABG pH ABG pCO2 ABG pO2 ABG HCO3 ABG Total CO2 ABG O2 Saturation ABG Base Excess FiO2 Sodium 145 Potassium 2.9 L Chloride 111 H Carbon Dioxide 27 BUN 16 Creatinine 0.57 Estimated GFR > 60.0 BUN/Creatinine Ratio 28.1 H Glucose 119 H Lactate Calcium 10.0 Magnesium Total Bilirubin 0.8 AST 53 H ALT 27 Alkaline Phosphatase 137 H Ammonia Total Creatine Kinase 323 H CK-MB (CK-2) 3.21 H CK-MB (CK-2) Rel Index 1.0 L Troponin I 0.205 H* NT-Pro-B Natriuret Pep 1690 H Total Protein 7.0 Albumin 3.6 Globulin 3.4 Albumin/Globulin Ratio 1.1 Triglycerides Cholesterol LDL Cholesterol, Calc HDL Cholesterol Lipase 98 Procalcitonin 0.10 TSH Urine Color Urine Appearance Urine pH Ur Specific [place] Urine Protein Urine Glucose (UA) Urine Ketones Urine Occult Blood Urine Nitrate Urine Bilirubin Ur Bilirubin Confirm Urine Urobilinogen Ur Leukocyte Esterase Urine RBC Urine WBC Ur Squamous Epith Cells Amorphous Sediment Urine Bacteria Hyaline Casts Granular Casts Urine Mucus Ur Culture Indicated? Micro UA Comment Urine Test Salicylates U Opiates 300ng/mL cut Ur Oxycodone Screen Urine Methadone Screen Acetaminophen Ur Barbiturates Screen U Tricyclic Antidepress Ur Phencyclidine Scrn Ur Amphetamines Screen U Methamphetamines Scrn Ur MDMA Scrn (Ecstasy) U Benzodiazepines Scrn Urine Cocaine Screen U Marijuana (THC) Screen Ethyl Alcohol Chlamy pneumoniae PCR Adenovirus (PCR) B. pertussis DNA (PCR) B.parapertussis DNA PCR Coronavirus OC43 (PCR) Coronavirus HKU1 (PCR) Coronavirus 229E (PCR) SARS-CoV-2 (PCR) Coronavirus NL63 (PCR) Human Metapneumovir PCR Influenza Type A (PCR) Influenza Type B (PCR) M. pneumoniae (PCR) Parainfluenza 1 (PCR) Parainfluenza 2 (PCR) Parainfluenza 3 (PCR) Parainfluenza 4 (PCR) RSV (PCR) Entero/Rhino (PCR) 07/31/21 07/31/21 07/31/21 16:15 16:15 16:15 WBC RBC Hgb Hct MCV MCH MCHC RDW Plt Count Neut % (Auto) Lymph % (Auto) Williams % (Auto) Eos % (Auto) Baso % (Auto) Neut # (Auto) Lymph # (Auto) Williams # (Auto) Eos # (Auto) Baso # (Auto) PT INR APTT ABG pH ABG pCO2 ABG pO2 ABG HCO3 ABG Total CO2 ABG O2 Saturation ABG Base Excess FiO2 Sodium Potassium Chloride Carbon Dioxide BUN Creatinine Estimated GFR BUN/Creatinine Ratio Glucose Lactate 1.1 Calcium Magnesium Total Bilirubin AST ALT Alkaline Phosphatase Ammonia Total Creatine Kinase CK-MB (CK-2) CK-MB (CK-2) Rel Index Troponin I NT-Pro-B Natriuret Pep Total Protein Albumin Globulin Albumin/Globulin Ratio Triglycerides Cholesterol LDL Cholesterol, Calc HDL Cholesterol Lipase Procalcitonin TSH Urine Color Urine Appearance Urine pH Ur Specific [place] Urine Protein Urine Glucose (UA) Urine Ketones Urine Occult Blood Urine Nitrate Urine Bilirubin Ur Bilirubin Confirm Urine Urobilinogen Ur Leukocyte Esterase Urine RBC Urine WBC Ur Squamous Epith Cells Amorphous Sediment Urine Bacteria Hyaline Casts Granular Casts Urine Mucus Ur Culture Indicated? Micro UA Comment Urine Test Salicylates < 1.0 U Opiates 300ng/mL cut Ur Oxycodone Screen Urine Methadone Screen Acetaminophen < 10 L Ur Barbiturates Screen U Tricyclic Antidepress Ur Phencyclidine Scrn Ur Amphetamines Screen U Methamphetamines Scrn Ur MDMA Scrn (Ecstasy) U Benzodiazepines Scrn Urine Cocaine Screen U Marijuana (THC) Screen Ethyl Alcohol < 10 Chlamy pneumoniae PCR Adenovirus (PCR) B. pertussis DNA (PCR) B.parapertussis DNA PCR Coronavirus OC43 (PCR) Coronavirus HKU1 (PCR) Coronavirus 229E (PCR) SARS-CoV-2 (PCR) Coronavirus NL63 (PCR) Human Metapneumovir PCR Influenza Type A (PCR) Influenza Type B (PCR) M. pneumoniae (PCR) Parainfluenza 1 (PCR) Parainfluenza 2 (PCR) Parainfluenza 3 (PCR) Parainfluenza 4 (PCR) RSV (PCR) Entero/Rhino (PCR) 07/31/21 07/31/21 07/31/21 16:15 16:15 16:15 WBC RBC Hgb Hct MCV MCH MCHC RDW Plt Count Neut % (Auto) Lymph % (Auto) Williams % (Auto) Eos % (Auto) Baso % (Auto) Neut # (Auto) Lymph # (Auto) Williams # (Auto) Eos # (Auto) Baso # (Auto) PT INR APTT ABG pH ABG pCO2 ABG pO2 ABG HCO3 ABG Total CO2 ABG O2 Saturation ABG Base Excess FiO2 Sodium Potassium Chloride Carbon Dioxide BUN Creatinine Estimated GFR BUN/Creatinine Ratio Glucose Lactate Calcium Magnesium 1.9 Total Bilirubin AST ALT Alkaline Phosphatase Ammonia Total Creatine Kinase CK-MB (CK-2) CK-MB (CK-2) Rel Index Troponin I NT-Pro-B Natriuret Pep Total Protein Albumin Globulin Albumin/Globulin Ratio Triglycerides 109 Cholesterol 164 LDL Cholesterol, Calc 89 HDL Cholesterol 53 Lipase Procalcitonin TSH 5.16 H Urine Color Urine Appearance Urine pH Ur Specific [place] Urine Protein Urine Glucose (UA) Urine Ketones Urine Occult Blood Urine Nitrate Urine Bilirubin Ur Bilirubin Confirm Urine Urobilinogen Ur Leukocyte Esterase Urine RBC Urine WBC Ur Squamous Epith Cells Amorphous Sediment Urine Bacteria Hyaline Casts Granular Casts Urine Mucus Ur Culture Indicated? Micro UA Comment Urine Test Salicylates U Opiates 300ng/mL cut Ur Oxycodone Screen Urine Methadone Screen Acetaminophen Ur Barbiturates Screen U Tricyclic Antidepress Ur Phencyclidine Scrn Ur Amphetamines Screen U Methamphetamines Scrn Ur MDMA Scrn (Ecstasy) U Benzodiazepines Scrn Urine Cocaine Screen U Marijuana (THC) Screen Ethyl Alcohol Chlamy pneumoniae PCR Adenovirus (PCR) B. pertussis DNA (PCR) B.parapertussis DNA PCR Coronavirus OC43 (PCR) Coronavirus HKU1 (PCR) Coronavirus 229E (PCR) SARS-CoV-2 (PCR) Coronavirus NL63 (PCR) Human Metapneumovir PCR Influenza Type A (PCR) Influenza Type B (PCR) M. pneumoniae (PCR) Parainfluenza 1 (PCR) Parainfluenza 2 (PCR) Parainfluenza 3 (PCR) Parainfluenza 4 (PCR) RSV (PCR) Entero/Rhino (PCR) 07/31/21 07/31/21 07/31/21 16:26 16:30 16:30 WBC RBC Hgb Hct MCV MCH MCHC RDW Plt Count Neut % (Auto) Lymph % (Auto) Williams % (Auto) Eos % (Auto) Baso % (Auto) Neut # (Auto) Lymph # (Auto) Williams # (Auto) Eos # (Auto) Baso # (Auto) PT INR APTT ABG pH ABG pCO2 ABG pO2 ABG HCO3 ABG Total CO2 ABG O2 Saturation ABG Base Excess FiO2 Sodium Potassium Chloride Carbon Dioxide BUN Creatinine Estimated GFR BUN/Creatinine Ratio Glucose Lactate Calcium Magnesium Total Bilirubin AST ALT Alkaline Phosphatase Ammonia Total Creatine Kinase CK-MB (CK-2) CK-MB (CK-2) Rel Index Troponin I NT-Pro-B Natriuret Pep Total Protein Albumin Globulin Albumin/Globulin Ratio Triglycerides Cholesterol LDL Cholesterol, Calc HDL Cholesterol Lipase Procalcitonin TSH Urine Color Yellow Urine Appearance Clear Urine pH 6.5 Ur Specific [place] 1.025 Urine Protein 2+ H Urine Glucose (UA) Negative Urine Ketones 3+ H Urine Occult Blood Negative Urine Nitrate Negative Urine Bilirubin 1+ H Ur Bilirubin Confirm Negative Urine Urobilinogen 0.2 Ur Leukocyte Esterase Negative Urine RBC None seen Urine WBC 1-5/hpf Ur Squamous Epith Cells 1-5 /hpf D Amorphous Sediment 1+ Urine Bacteria None seen Hyaline Casts 1-5/lpf Granular Casts 0-1/lpf Urine Mucus 1+ H Ur Culture Indicated? Cult not indicated Micro UA Comment Urine Test Negative Salicylates U Opiates 300ng/mL cut Ur Oxycodone Screen Urine Methadone Screen Acetaminophen Ur Barbiturates Screen U Tricyclic Antidepress Ur Phencyclidine Scrn Ur Amphetamines Screen U Methamphetamines Scrn Ur MDMA Scrn (Ecstasy) U Benzodiazepines Scrn Urine Cocaine Screen U Marijuana (THC) Screen Ethyl Alcohol Chlamy pneumoniae PCR Adenovirus (PCR) B. pertussis DNA (PCR) B.parapertussis DNA PCR Coronavirus OC43 (PCR) Coronavirus HKU1 (PCR) Coronavirus 229E (PCR) SARS-CoV-2 (PCR) Negative Coronavirus NL63 (PCR) Human Metapneumovir PCR Influenza Type A (PCR) Influenza Type B (PCR) M. pneumoniae (PCR) Parainfluenza 1 (PCR) Parainfluenza 2 (PCR) Parainfluenza 3 (PCR) Parainfluenza 4 (PCR) RSV (PCR) Entero/Rhino (PCR) 07/31/21 07/31/21 07/31/21 16:30 18:35 18:44 WBC RBC Hgb Hct MCV MCH MCHC RDW Plt Count Neut % (Auto) Lymph % (Auto) Williams % (Auto) Eos % (Auto) Baso % (Auto) Neut # (Auto) Lymph # (Auto) Williams # (Auto) Eos # (Auto) Baso # (Auto) PT INR APTT ABG pH 7.35 ABG pCO2 46.0 H ABG pO2 82 ABG HCO3 25 ABG Total CO2 27 ABG O2 Saturation 95 ABG Base Excess 0.0 FiO2 40 Sodium Potassium Chloride Carbon Dioxide BUN Creatinine Estimated GFR BUN/Creatinine Ratio Glucose Lactate Calcium Magnesium Total Bilirubin AST ALT Alkaline Phosphatase Ammonia Total Creatine Kinase CK-MB (CK-2) CK-MB (CK-2) Rel Index Troponin I NT-Pro-B Natriuret Pep Total Protein Albumin Globulin Albumin/Globulin Ratio Triglycerides Cholesterol LDL Cholesterol, Calc HDL Cholesterol Lipase Procalcitonin TSH Urine Color Urine Appearance Urine pH Ur Specific [place] Urine Protein Urine Glucose (UA) Urine Ketones Urine Occult Blood Urine Nitrate Urine Bilirubin Ur Bilirubin Confirm Urine Urobilinogen Ur Leukocyte Esterase Urine RBC Urine WBC Ur Squamous Epith Cells Amorphous Sediment Urine Bacteria Hyaline Casts Granular Casts Urine Mucus Ur Culture Indicated? Micro UA Comment Urine Test Salicylates U Opiates 300ng/mL cut Negative Ur Oxycodone Screen Negative Urine Methadone Screen Negative Acetaminophen Ur Barbiturates Screen Negative U Tricyclic Antidepress Negative Ur Phencyclidine Scrn Negative Ur Amphetamines Screen Negative U Methamphetamines Scrn Negative Ur MDMA Scrn (Ecstasy) Negative U Benzodiazepines Scrn Positive H Urine Cocaine Screen Negative U Marijuana (THC) Screen Negative Ethyl Alcohol Chlamy pneumoniae PCR Not detected Adenovirus (PCR) Not detected B. pertussis DNA (PCR) Not detected B.parapertussis DNA PCR Not detected Coronavirus OC43 (PCR) Not detected Coronavirus HKU1 (PCR) Not detected Coronavirus 229E (PCR) Not detected SARS-CoV-2 (PCR) Not detected Coronavirus NL63 (PCR) Not detected Human Metapneumovir PCR Not detected Influenza Type A (PCR) Not detected Influenza Type B (PCR) Not detected M. pneumoniae (PCR) Not detected Parainfluenza 1 (PCR) Not detected Parainfluenza 2 (PCR) Not detected Parainfluenza 3 (PCR) Not detected Parainfluenza 4 (PCR) Not detected RSV (PCR) Not detected Entero/Rhino (PCR) Not detected 07/31/21 07/31/21 08/01/21 19:47 19:47 05:37 WBC RBC Hgb Hct MCV MCH MCHC RDW Plt Count Neut % (Auto) Lymph % (Auto) [place] % (Auto) Eos % (Auto) Baso % (Auto) Neut # (Auto) Lymph # (Auto) [place] # (Auto) Eos # (Auto) Baso # (Auto) PT INR APTT ABG pH ABG pCO2 ABG pO2 ABG HCO3 ABG Total CO2 ABG O2 Saturation ABG Base Excess FiO2 Sodium Potassium Chloride Carbon Dioxide BUN Creatinine Estimated GFR BUN/Creatinine Ratio Glucose Lactate Calcium Magnesium Total Bilirubin AST ALT Alkaline Phosphatase Ammonia 10 Total Creatine Kinase CK-MB (CK-2) CK-MB (CK-2) Rel Index Troponin I 0.195 H* NT-Pro-B Natriuret Pep 804 H Total Protein Albumin Globulin Albumin/Globulin Ratio Triglycerides Cholesterol LDL Cholesterol, Calc HDL Cholesterol Lipase Procalcitonin TSH Urine Color Urine Appearance Urine pH Ur Specific [place] Urine Protein Urine Glucose (UA) Urine Ketones Urine Occult Blood Urine Nitrate Urine Bilirubin Ur Bilirubin Confirm Urine Urobilinogen Ur Leukocyte Esterase Urine RBC Urine WBC Ur Squamous Epith Cells Amorphous Sediment Urine Bacteria Hyaline Casts Granular Casts Urine Mucus Ur Culture Indicated? Micro UA Comment Urine Test Salicylates U Opiates 300ng/mL cut Ur Oxycodone Screen Urine Methadone Screen Acetaminophen Ur Barbiturates Screen U Tricyclic Antidepress Ur Phencyclidine Scrn Ur Amphetamines Screen U Methamphetamines Scrn Ur MDMA Scrn (Ecstasy) U Benzodiazepines Scrn Urine Cocaine Screen U Marijuana (THC) Screen Ethyl Alcohol Chlamy pneumoniae PCR Adenovirus (PCR) B. pertussis DNA (PCR) B.parapertussis DNA PCR Coronavirus OC43 (PCR) Coronavirus HKU1 (PCR) Coronavirus 229E (PCR) SARS-CoV-2 (PCR) Coronavirus NL63 (PCR) Human Metapneumovir PCR Influenza Type A (PCR) Influenza Type B (PCR) M. pneumoniae (PCR) Parainfluenza 1 (PCR) Parainfluenza 2 (PCR) Parainfluenza 3 (PCR) Parainfluenza 4 (PCR) RSV (PCR) Entero/Rhino (PCR) 08/01/21 08/01/21 08/01/21 05:37 05:37 05:37 WBC 13.4 H RBC 4.22 Hgb 12.2 Hct 37.0 MCV 87.8 MCH 28.9 MCHC 32.9 RDW 16.7 H Plt Count 303 Neut % (Auto) 83.4 H Lymph % (Auto) 8.3 L Williams % (Auto) 7.9 Eos % (Auto) 0.2 L Baso % (Auto) 0.2 Neut # (Auto) 90511 H Lymph # (Auto) 1100 Williams # (Auto) 1100 H Eos # (Auto) 0 Baso # (Auto) 0 PT INR APTT ABG pH ABG pCO2 ABG pO2 ABG HCO3 ABG Total CO2 ABG O2 Saturation ABG Base Excess FiO2 Sodium 146 H Potassium 3.5 Chloride 111 H Carbon Dioxide 31 BUN 21 H Creatinine 0.56 Estimated GFR > 60.0 BUN/Creatinine Ratio 37.5 H Glucose 98 Lactate Calcium 10.0 Magnesium Total Bilirubin 0.6 AST 39 H ALT 24 Alkaline Phosphatase 129 H Ammonia Total Creatine Kinase CK-MB (CK-2) CK-MB (CK-2) Rel Index Troponin I 0.121 H* NT-Pro-B Natriuret Pep Total Protein 6.8 Albumin 3.4 L Globulin 3.4 Albumin/Globulin Ratio 1.0 Triglycerides Cholesterol LDL Cholesterol, Calc HDL Cholesterol Lipase Procalcitonin 0.08 TSH Urine Color Urine Appearance Urine pH Ur Specific [place] Urine Protein Urine Glucose (UA) Urine Ketones Urine Occult Blood Urine Nitrate Urine Bilirubin Ur Bilirubin Confirm Urine Urobilinogen Ur Leukocyte Esterase Urine RBC Urine WBC Ur Squamous Epith Cells Amorphous Sediment Urine Bacteria Hyaline Casts Granular Casts Urine Mucus Ur Culture Indicated? Micro UA Comment Urine Test Salicylates U Opiates 300ng/mL cut Ur Oxycodone Screen Urine Methadone Screen Acetaminophen Ur Barbiturates Screen U Tricyclic Antidepress Ur Phencyclidine Scrn Ur Amphetamines Screen U Methamphetamines Scrn Ur MDMA Scrn (Ecstasy) U Benzodiazepines Scrn Urine Cocaine Screen U Marijuana (THC) Screen Ethyl Alcohol Chlamy pneumoniae PCR Adenovirus (PCR) B. pertussis DNA (PCR) B.parapertussis DNA PCR Coronavirus OC43 (PCR) Coronavirus HKU1 (PCR) Coronavirus 229E (PCR) SARS-CoV-2 (PCR) Coronavirus NL63 (PCR) Human Metapneumovir PCR Influenza Type A (PCR) Influenza Type B (PCR) M. pneumoniae (PCR) Parainfluenza 1 (PCR) Parainfluenza 2 (PCR) Parainfluenza 3 (PCR) Parainfluenza 4 (PCR) RSV (PCR) Entero/Rhino (PCR) 08/01/21 07:19 WBC RBC Hgb Hct MCV MCH MCHC RDW Plt Count Neut % (Auto) Lymph % (Auto) [place] % (Auto) Eos % (Auto) Baso % (Auto) Neut # (Auto) Lymph # (Auto) [place] # (Auto) Eos # (Auto) Baso # (Auto) PT INR APTT ABG pH ABG pCO2 ABG pO2 ABG HCO3 ABG Total CO2 ABG O2 Saturation ABG Base Excess FiO2 Sodium Potassium Chloride Carbon Dioxide BUN Creatinine Estimated GFR BUN/Creatinine Ratio Glucose Lactate Calcium Magnesium Total Bilirubin AST ALT Alkaline Phosphatase Ammonia Total Creatine Kinase CK-MB (CK-2) CK-MB (CK-2) Rel Index Troponin I NT-Pro-B Natriuret Pep Total Protein Albumin Globulin Albumin/Globulin Ratio Triglycerides Cholesterol LDL Cholesterol, Calc HDL Cholesterol Lipase Procalcitonin TSH Urine Color Yellow Urine Appearance Clear Urine pH 6.5 Ur Specific [place] 1.010 Urine Protein 1+ H Urine Glucose (UA) Negative Urine Ketones 2+ H Urine Occult Blood Negative Urine Nitrate Negative Urine Bilirubin 2+ H Ur Bilirubin Confirm Negative Urine Urobilinogen 0.2 Ur Leukocyte Esterase Negative Urine RBC None seen Urine WBC None seen Ur Squamous Epith Cells Amorphous Sediment Urine Bacteria None seen Hyaline Casts Granular Casts Urine Mucus Ur Culture Indicated? Cult not indicated Micro UA Comment Microscopic normal Urine Test Salicylates U Opiates 300ng/mL cut Ur Oxycodone Screen Urine Methadone Screen Acetaminophen Ur Barbiturates Screen U Tricyclic Antidepress Ur Phencyclidine Scrn Ur Amphetamines Screen U Methamphetamines Scrn Ur MDMA Scrn (Ecstasy) U Benzodiazepines Scrn Urine Cocaine Screen U Marijuana (THC) Screen Ethyl Alcohol Chlamy pneumoniae PCR Adenovirus (PCR) B. pertussis DNA (PCR) B.parapertussis DNA PCR Coronavirus OC43 (PCR) Coronavirus HKU1 (PCR) Coronavirus 229E (PCR) SARS-CoV-2 (PCR) Coronavirus NL63 (PCR) Human Metapneumovir PCR Influenza Type A (PCR) Influenza Type B (PCR) M. pneumoniae (PCR) Parainfluenza 1 (PCR) Parainfluenza 2 (PCR) Parainfluenza 3 (PCR) Parainfluenza 4 (PCR) RSV (PCR) Entero/Rhino (PCR) [facility] Medical History Allergy (Unknown) Anxiety (1989) Chronic back pain (Unknown) Chronic venous insufficiency Foot pain (2003) GERD (gastroesophageal reflux disease) (Unknown) Heavy menses (Unknown) IBS (irritable bowel syndrome) (1985) Neuropathy Obstructive sleep apnea (Unknown) Painful menstrual periods (Unknown) Restless leg syndrome (2015) Shoulder pain (Unknown) Vertigo (1979) Surgical History History of removal of laparoscopic gastric banding device (2014) Hx of laparoscopic gastric banding (2012) Hx of sinus surgery (2012) 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 Sepsis secondary to presumed pnuemonia, with acute metabolic encephalopathy and acute respiratory failure with hypoxia - continue ceftriaxone and azithromycin. - CT abdomen without abdominal pathologies, does show bilateral lower lobe infiltrates. - UA contaminated but no WBC, unlikely source. - metabolic encephalopathy likely worsened in setting ? medication compliance with many of her medications. - SOFA score at least 2 on admit due to encephalopathy and respiratory failure. - continue to wean O2 as able, was as high as 11L. - respiratory panel negative. 2. myocardial injury - 0.205 troponin now improving. likely in setting of pneumonia, acute respiratory failure. EKG without evidence of obvious ischemia. - echocardiogram with a normal EF and no significant wall motion abnormalities. 3. alcohol use / depression and anxiety - follows with psychiatry here. 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 Unclear currently with confusion how accurate this is but will continue to hold. - consider psychiatry involvement if confusion continues for re-initiation of some of her medications. Code: Full Dispo: remains inpatient Time Spent With Patient Critical Care time: I spent a total of [] minutes of critical care time on this patient's care today; this time is exclusive of procedural time. Scores SOFA PaO2/FIO2: < 400 mmHg Lana Coma Scale: 10-12
--- NOTE | 2021-08-01 14:49 | CM.DANOTE ---
Addendum entered by Cindy Cash 08/01/21 16:45: Patient's PCP is Dr. Barry Em. [facility] [place], Medicaid and [employer] [facility] insurance. Original Note: DCP Assessment Note Patient is 51 y/o female who presents to the hospital via EMS due to concern for confusion and SOB. Patient has hx of ETOH use and anxiety. Patient is a current smoker, upon arrival at ED patient presents as Hypoxic, with O2 levels in the 80s. Per Chest X ray, there is a concern for Pneumonia. Patient also has elevated Troponin and BNP. Per RN, Patient is not A/Ox4 and presents with confusion and incoherent. PLUMBING CONTRACTOR enters room to meet with patient. Patient is unable to directly answer questions. Patient is alert but not oriented. When asked how she is doing patient discusses her rx at the [facility]. Patient later states I am not very comfortable when PLUMBING CONTRACTOR asks if patient knows where she is. Plan: Continued medical evaluation as patient receives antibiotics, DCP to f/u with POC. ROMARIO Hughes Discharge Planning/Care Management Advanced directive,confirm from FACILITY Start: 08/01/21 06:04 Freq: Q24H Status: Active Protocol: Document 08/01/21 06:04 MW (Rec: 08/01/21 06:18 MW [id number]) Advance Directive, confirm on record Time 06:00 Person contacted family Copy received No CM Discharge Assessment Start: 08/01/21 13:31 Freq: Status: Active Protocol: Document 08/01/21 13:32 LN (Rec: 08/01/21 14:48 LN [id number]) Discharge Planning Assessment Assigned Customer Operations Associate ROMARIO White Advance Directives? No Advance Directives on File No History Provided By Medical Record Has Patient been admitted in last 30 No days? Prior Living Arrangements House Household Members spouse,other Independent with ADL's Patient unable to answer Is patient alert and oriented? No Patient/Family Preference Home with Home Health Comment As long as family can assist at home. Will see how she does with P.T. Discharge Plan Home Transportation Arrangement Spouse Additional Comment Unknown at this time Please Provide Date Initial DC 08/01/21 Assessment Was Performed
--- NOTE | 2021-08-01 15:45 | PC.NURSE ---
Addendum entered by Jaida Carbone R.N. 08/01/21 19:29: UOP last 4hrs was 35mls. Pt has had a total of 75mls uop in [address] Polk made aware. Original Note: LOC: Global disorientation at times. Sometimes is unable to say her own name. CIWA was 9 and then 11, off mainly for mentation, anxiety, shaky. No sxs of DT's seen. Often verbal response is completely off from the question asked. Asked what year it was and she started talking about a park. Other time she knows she is in the hospital and the month is July or she reports she could tell you the day if she had her phone. Was shown date and time on her board and the wall. Pt has also said she doesn't want any visitors including her mother and wants no information given. Unknown if this is something she wants to continue, she understands she can change her mind at any time. UOP over night was 100mls. From 0600 to 1400 the patient had only 40mls of uop. Dr. Polk made aware. Pt is on 7L HFCN and sats are 89-91%. Did try to decrease O2 to 5L HFNC, sats were down to 88% fairly quickly and O2 returned to 7L HFNC. Sometimes she is drowsy and dozing, other times she is awake and wanting to know what she needs to do. Will continue to observe and monitor patient.
[2021-08-01] MEDS: clonazePAM 0.5 MG TABLET PO (20:24)
[2021-08-02] VITALS (11 sets, daily range): BP systolic 133–148; BP diastolic 82–91; PULSE 77–102; RESP 16–22; TEMP 36.8–38.1; O2SAT 90–95
[2021-08-02] MEDS: ASPIRIN EC 81 MG TABLET PO (08:34)
[2021-08-02] MEDS: cefTRIAXone 1,000 MG in SODIUM CHLORIDE 0.9% 100 ML 200 ML IV (08:34)
[2021-08-02] MEDS: PROPRANOLOL 10 MG TABLET 20 MG PO ×2 (08:34→20:58)
[2021-08-02] MEDS: ENOXAPARIN 40 MG/0.4 ML SYRINGE SUBCUT (08:34)
[2021-08-02] MEDS: MULTIVITAMIN 1 TABLET 1 TAB PO (08:35)
[2021-08-02] MEDS: THIAMINE 100 MG TABLET PO (08:35)
[2021-08-02] MEDS: FOLIC ACID 1 MG TABLET PO (08:35)
[2021-08-02] MEDS: AZITHROMYCIN 500 MG in DEXTROSE 5% IN WATER 250 ML IV (09:48)
--- NOTE | 2021-08-02 14:32 | CM.DPC ---
DCP Cont: Per MD, pt still with CIWA scores and still on 7LHHFNC oxygen and likely will need a few more days before medically stable to d/c. Pt established with Dr. Gomez Psychiatrist and MD has not consulted him yet as pt took herself off her mental health medications and currently not wanting to go back on and if needed MD will call Dr. Gomez to consult but currently medically managing pt's needs. SW met bedside with pt and pt is more alert and oriented today but still clearly tremulous and weak and not back to baseline. Pt attempting to eat but does not have an appetite. Pt confirms she still lives in [place] with her spouse, who works, and her mother. Pt was vague with her answers and states that her mother is concerned about her and pt's as we have a lot of struggles going on right now, a lot of issues but declines to talk specifically about them. Pt does not anticipate any needs and declines any resources but aware that SW will check back with her prior to d/c when she is feeling better. Pt was last admitted last year in the Fall for Ortho needs and was able to d/c home with family assist and [facility]. Pt denies any other services in place at this time beside Behavioral Health. PT eval to be ordered today or tomorrow. Plan: SW to follow closely for PT eval and recommendations and f/u with pt on additional supports or resources closer to discharge. ROMARIO Steele
--- NOTE | 2021-08-02 15:42 | P.PN_ITS ---
Subjective Subjective Date Patient Seen: 08/02/21 Time Patient Seen: 15:42 Interval history: No complaints of chest pain, cough, shortness of breath though she is still requiring high flow nasal cannula oxygen today. Exam Vital Signs (past 8 hours): - 08/02/21 08:10 08/02/21 11:05 08/02/21 12:00 Temperature 99.6 F 98.8 F Pulse Rate 102 H 80 Respiratory Rate 18 18 Blood Pressure 134/91 H 135/84 Pulse Oximetry 90 L 93 94 Oxygen Delivery Method High Flow Nasal Cannula Oxygen Flow Rate 10 Narrative Exam Narrative: Gen: well developed, disheveled female in no acute distress. CV: RRR no m/r/g Pulm: diffuse rhochi, no wheezing. Abd: S NT ND Ext: multiple bruises and scabs, notable on hands and distal extremities. No edema Neuro: Alert and oriented to person, city, year but does not know date. Objective Labs Result Diagrams: 08/01/21 05:37 08/01/21 05:37 [facility] Medical History Allergy (Unknown) Anxiety (1989) Chronic back pain (Unknown) Chronic venous insufficiency Foot pain (2003) GERD (gastroesophageal reflux disease) (Unknown) Heavy menses (Unknown) IBS (irritable bowel syndrome) (1985) Neuropathy Obstructive sleep apnea (Unknown) Painful menstrual periods (Unknown) Restless leg syndrome (2014) Shoulder pain (Unknown) Vertigo (1979) Surgical History History of removal of laparoscopic gastric banding device (2014) Hx of laparoscopic gastric banding (2011) Hx of sinus surgery (2011) 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 Sepsis secondary to presumed pnuemonia, with acute metabolic encephalopathy and acute respiratory failure with hypoxia ?- continue ceftriaxone and azithromycin. ?- CT abdomen without abdominal pathologies, does show bilateral lower lobe infiltrates. ?- UA contaminated but no WBC, unlikely source. ?- metabolic encephalopathy likely worsened in setting ? medication compliance with many of her medications. ?- SOFA score at least 2 on admit due to encephalopathy and respiratory failure. ?- continue to wean O2 as able, was as high as 11L. ?- respiratory panel negative. 2. myocardial injury ?- 0.205 troponin now improving. likely in setting of pneumonia, acute respiratory failure. EKG without evidence of obvious ischemia. ?- echocardiogram with a normal EF and no significant wall motion abnormalities. 3. alcohol use / depression and anxiety ?- follows with psychiatry here. Patient reports stopping a number of her longterm medications. Unclear currently with confusion how accurate this is but will continue to hold. ?- consider psychiatry involvement if confusion continues for re-initiation of some of her medications. Code: Full Dispo: remains inpatient Time Spent With Patient Critical Care time: I spent a total of [] minutes of critical care time on this patient's care today; this time is exclusive of procedural time.
[2021-08-02] MEDS: BACLOFEN 10 MG TABLET 20 MG PO (16:58)
[2021-08-02] MEDS: BENZONATATE 100 MG CAPSULE PO (16:58)
--- NOTE | 2021-08-02 18:52 | PC.NURSE ---
Resp: Walked into room. Pt pulled off cpap machine this am. Found RA sats were 74%, pt had some circumoral cyanosis around her mouth. Her nail beds were dusky blue. She reported she didn't feel well. O2 was immed reapplied at 10L HFNC. O2 sats came back up, first into the 80's and then into the low 90's, 92-93%. Pt reporting she was feeling better. When Dr. Polk came to see pt he was notified of decreased O2 sat to 74% when off O2. Pt has been feeling better since then. We have been able to titrate the O2 down to 7L HFNC. Sats 91-92% on that. Pt reports she is feeling better.
[2021-08-02] MEDS: guaiFENesin ER 600 MG TAB PO (20:58)
[2021-08-02] MEDS: ACETAMINOPHEN 325 MG TABLET 650 MG PO (20:58)
[2021-08-03] VITALS (8 sets, daily range): BP systolic 109–139; BP diastolic 65–87; PULSE 63–83; RESP 16–24; TEMP 36.6–36.9; O2SAT 92–98
[2021-08-03] MEDS: BACLOFEN 10 MG TABLET 20 MG PO ×2 (01:20→12:51)
[2021-08-03] MEDS: BENZONATATE 100 MG CAPSULE PO (01:21)
--- NOTE | 2021-08-03 01:29 | PC.NURSE ---
0100: unable to scan PRN meds (tessalon pearle 100mg + baclofen 5mg x 2) as the computer timed out & did not save scanning. wrappings of meds had already been thrown into the garbage, which has wet napkins and butt wipes. documented meds given w/o scanning.
--- NOTE | 2021-08-03 01:31 | PC.NURSE ---
2300: assumed care of patient. assessment for NOC shift: patient is drowsy, wakens easily but kept eyes closed. speech is somewhat mumbled/slurred. knows the date, place and attempted to discuss the situation: my mom called them and they came and got me. Donnie why i'm here. asked her if she used o2 at home, no i dont. i'm fine. i didnt need my mom to call them to come get me. bilat hands assessed, they are warm to touch, thick dry scabs. fingers are red, appear swollen. attempted to elevate UE's on pillows, patient preferred to have them near her chin, resting on her upper chest. reported being cold, 2 warm blankets placed. ice water refilled. LS are audibly coarse throughout- w/ wheezing. o2 via Hi Flow NC @ 7lpm. sats hanging out around 92-96%. desats w/ NPC. discussed tessalon pearle for cough. reported BTP 6/10 to left knee. mentioned Toradol + baclofen. requested baclofen. meds obtained + patient told this nurse if you come back in here one more time I am going to fng strangle you. stated this isnt what you gave me before, i know you gave me something else. Reminded patient that I just came on shift, and this was the first time I have worked w/ her. no, it's not baclofen it's something else. you tried giving me baclofen before. again, reminded patient this is the first time i have met her, and offered the two meds, baclofen and tessalon pearle. she accepted the meds + said stop bothering me. 0330: CPOX alarming, patient desat to 85%, had removed NC. took a few min to bring sats >92%. Patient said: im naked i assured her, no youre not naked, you have a gown and linens covering your skin. skin is diaphoretic and hot blankets removed. continue frequent safety/room + neuro checks. bed alarm on. call light w/in reach.
[2021-08-03 05:37] LABS: BUN Creatinine Ratio 51.9 (6-22); Blood Urea Nitrogen 27 mg/dL (7-17); Calcium 9.1 mg/dL (8.4-10.2); Carbon Dioxide 35 mmol/L (22-32); Chloride 111 mmol/L (98-107); Estimated Glomerular Filt Rate > 60.0 mL/min (>60); Glucose 101 mg/dL (70-100); HEMOLYSIS < 15 (0-50); Potassium 3.2 mmol/L (3.4-5.1); Sodium 146 mmol/L (137-145)
[2021-08-03 05:40] LABS: Add Manual Diff / Slide Review NO; Basophils Absolute Auto 0 /uL (0-100); Basophils Percent Auto 0.4 % (0-2); Eosinophils Absolute Auto 400 /uL (0-450); Hematocrit 36.3 % (36-46); Hemoglobin 11.9 g/dL (12.0-16.0); Lymphocytes Absolute Auto 2200 /uL (1100-4500); Lymphocytes Percent Auto 20.5 % (25-40); Mean Corpuscular HGB Conc 32.8 % (30-36); Mean Corpuscular Hemoglobin 28.9 PG (26-34); Monocytes Absolute Auto 800 /uL (0-900); Monocytes Percent Auto 7.5 % (3-14); Neutrophils Absolute Auto 7300 /uL (1500-7000); Neutrophils Percent Auto 67.6 % (50-75); Platelet Count 262 X10^3/uL (150-400); Red Blood Cell Count 4.13 X10^6/uL (4.0-5.2); Red Cell Distribution Width 16.6 % (11.6-14.8); White Blood Cell Count 10.7 X10^3/uL (4.5-11.0)
[2021-08-03] MEDS: cefTRIAXone 1,000 MG in SODIUM CHLORIDE 0.9% 100 ML 200 ML IV (07:55)
[2021-08-03] MEDS: ASPIRIN EC 81 MG TABLET PO (08:20)
[2021-08-03] MEDS: PROPRANOLOL 10 MG TABLET 20 MG PO ×2 (08:20→21:22)
[2021-08-03] MEDS: guaiFENesin ER 600 MG TAB PO ×2 (08:20→21:22)
[2021-08-03] MEDS: ENOXAPARIN 40 MG/0.4 ML SYRINGE SUBCUT (08:21)
[2021-08-03] MEDS: FOLIC ACID 1 MG TABLET PO (08:22)
[2021-08-03] MEDS: MULTIVITAMIN 1 TABLET 1 TAB PO (08:24)
[2021-08-03] MEDS: THIAMINE 100 MG TABLET PO (08:25)
[2021-08-03] MEDS: predniSONE 20 MG TABLET 40 MG PO (08:52)
[2021-08-03] MEDS: KETOROLAC 30 MG/ML VIAL IV (08:53)
[2021-08-03] MEDS: AZITHROMYCIN 500 MG in DEXTROSE 5% IN WATER 250 ML IV (08:53)
[2021-08-03] MEDS: ALBUTEROL/IPRATROPIUM 3 ML AMPUL INH (10:27)
[2021-08-03] MEDS: POTASSIUM CHLORIDE IN WATER 10 MEQ/100 ML PIGGYBACK 100 MEQ IV ×4 (10:29→13:52)
[2021-08-03] MEDS: GABAPENTIN 300 MG CAPSULE PO ×2 (14:57→21:22)
[2021-08-03] MEDS: clonazePAM 0.5 MG TABLET PO (14:57)
--- NOTE | 2021-08-03 16:02 | PM.PN.1 ---
Subjective Subjective Date Patient Seen: 08/03/21 Time Patient Seen: 16:02 Interval history: No complaints of chest pain, cough, shortness of breath though she is still requiring oxygen. Exam Vital Signs (past 8 hours): - 08/03/21 10:36 08/03/21 11:16 08/03/21 11:29 Pulse Rate 68 63 Respiratory Rate 16 18 Blood Pressure 116/79 Pulse Oximetry 97 96 98 Oxygen Delivery Method High Flow Nasal Cannula Oxygen Flow Rate 4 Narrative Exam Narrative: Gen: well developed, disheveled female in no acute distress. CV: RRR no m/r/g Pulm: diffuse rhochi, no wheezing. Abd: S NT ND Ext: multiple bruises and scabs, notable on hands and distal extremities. No edema Neuro: Alert and oriented today, much improved mentation. No focal deficits. Mildly anxious and tremulous. Objective Labs Result Diagrams: 08/03/21 05:00 08/03/21 05:00 Labs: Laboratory Results - last 24 hr 08/03/21 08/03/21 05:00 05:00 WBC 10.7 RBC 4.13 Hgb 11.9 L Hct 36.3 MCV 88.0 MCH 28.9 MCHC 32.8 RDW 16.6 H Plt Count 262 Neut % (Auto) 67.6 Lymph % (Auto) 20.5 L [place] % (Auto) 7.5 Eos % (Auto) 4.0 Baso % (Auto) 0.4 Neut # (Auto) 7300 H Lymph # (Auto) 2200 [place] # (Auto) 800 Eos # (Auto) 400 Baso # (Auto) 0 Sodium 146 H Potassium 3.2 L Chloride 111 H Carbon Dioxide 35 H BUN 27 H Creatinine 0.52 Estimated GFR > 60.0 BUN/Creatinine Ratio 51.9 H Glucose 101 H Calcium 9.1 PFSH Medical History Allergy (Unknown) Anxiety (1989) Chronic back pain (Unknown) Chronic venous insufficiency Foot pain (2003) GERD (gastroesophageal reflux disease) (Unknown) Heavy menses (Unknown) IBS (irritable bowel syndrome) (1985) Neuropathy Obstructive sleep apnea (Unknown) Painful menstrual periods (Unknown) Restless leg syndrome (2015) Shoulder pain (Unknown) Vertigo (1979) Surgical History History of removal of laparoscopic gastric banding device (2014) Hx of laparoscopic gastric banding (2011) Hx of sinus surgery (2011) 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 Sepsis secondary to presumed pnuemonia, with acute metabolic encephalopathy and acute respiratory failure with hypoxia ?- continue ceftriaxone and azithromycin. ?- CT abdomen without abdominal pathologies, does show bilateral lower lobe infiltrates. ?- UA contaminated but no WBC, unlikely source. ?- metabolic encephalopathy likely worsened in setting ? medication compliance with many of her medications. ?- SOFA score at least 2 on admit due to encephalopathy and respiratory failure. ?- continue to wean O2 as able, was as high as 11L. ?- respiratory panel negative. 2. myocardial injury ?- 0.205 troponin now improving. likely in setting of pneumonia, acute respiratory failure. EKG without evidence of obvious ischemia. ?- echocardiogram with a normal EF and no significant wall motion abnormalities. 3. alcohol use / depression and anxiety / possible mild alcohol withdrawal. ?- follows with psychiatry here. will resume home medications today as patient states she did not stop them. - mild tremulousness and anxiety today, monitor for EtOH withdrawal, has a prn benzo for anxiety as well. - last drink she reports was 4 days ago. Has a history of withdrawal but no seizures or intubations in the past. Code: Full Dispo: remains inpatient Time Spent With Patient Critical Care time: I spent a total of [] minutes of critical care time on this patient's care today; this time is exclusive of procedural time.
[2021-08-03] MEDS: ESCITALOPRAM 10 MG TABLET 20 MG PO (21:22)
[2021-08-03] MEDS: SODIUM CHLORIDE 0.9% FLUSH 10 ML IV (21:23)
[2021-08-03] MEDS: risperiDONE 0.25 MG TABLET 0.5 MG PO (21:27)
[2021-08-04] VITALS (10 sets, daily range): BP systolic 99–118; BP diastolic 55–76; PULSE 70–93; RESP 16–20; TEMP 36.8–37; O2SAT 89–99
[2021-08-04] MEDS: ALBUTEROL/IPRATROPIUM 3 ML AMPUL INH ×4 (03:37→19:28)
[2021-08-04 05:23] LABS: Add Manual Diff / Slide Review NO; Basophils Absolute Auto 0 /uL (0-100); Basophils Percent Auto 0.2 % (0-2); Eosinophils Absolute Auto 300 /uL (0-450); Eosinophils Percent Auto 2.3 % (2-4); Lymphocytes Absolute Auto 2600 /uL (1100-4500); Lymphocytes Percent Auto 20.8 % (25-40); Mean Corpuscular HGB Conc 33.3 % (30-36); Mean Corpuscular Hemoglobin 29.1 PG (26-34); Mean Corpuscular Volume 87.3 fL (80-100); Monocytes Absolute Auto 600 /uL (0-900); Neutrophils Absolute Auto 9000 /uL (1500-7000); Neutrophils Percent Auto 71.7 % (50-75); Platelet Count 234 X10^3/uL (150-400); Red Blood Cell Count 3.78 X10^6/uL (4.0-5.2); Red Cell Distribution Width 16.5 % (11.6-14.8); White Blood Cell Count 12.5 X10^3/uL (4.5-11.0)
[2021-08-04 05:26] LABS: BUN Creatinine Ratio 62.5 (6-22); Blood Urea Nitrogen 25 mg/dL (7-17); Calcium 8.7 mg/dL (8.4-10.2); Carbon Dioxide 35 mmol/L (22-32); Chloride 105 mmol/L (98-107); Estimated Glomerular Filt Rate > 60.0 mL/min (>60); Glucose 79 mg/dL (70-100); HEMOLYSIS < 15 (0-50); Potassium 3.3 mmol/L (3.4-5.1); Sodium 137 mmol/L (137-145)
[2021-08-04] MEDS: cefTRIAXone 1,000 MG in SODIUM CHLORIDE 0.9% 100 ML 200 ML IV (06:49)
[2021-08-04] MEDS: predniSONE 20 MG TABLET 40 MG PO (09:02)
[2021-08-04] MEDS: PROPRANOLOL 10 MG TABLET 20 MG PO ×2 (09:03→22:54)
[2021-08-04] MEDS: ASPIRIN EC 81 MG TABLET PO (09:03)
[2021-08-04] MEDS: MULTIVITAMIN 1 TABLET 1 TAB PO (09:03)
[2021-08-04] MEDS: THIAMINE 100 MG TABLET PO (09:03)
[2021-08-04] MEDS: GABAPENTIN 300 MG CAPSULE PO ×3 (09:04→22:54)
[2021-08-04] MEDS: SODIUM CHLORIDE 0.9% FLUSH 10 ML IV ×2 (09:04→22:55)
[2021-08-04] MEDS: guaiFENesin ER 600 MG TAB PO ×2 (09:04→22:54)
[2021-08-04] MEDS: FOLIC ACID 1 MG TABLET PO (09:04)
[2021-08-04] MEDS: ENOXAPARIN 40 MG/0.4 ML SYRINGE SUBCUT (09:24)
--- NOTE | 2021-08-04 09:55 | PT.IIE ---
Current Diagnoses Pneumonia, unspecified organism (07/31/21) Medical History (Last Reviewed 08/02/21 @ 00:39 by TEODORO Meek) Allergy (Unknown) Anxiety (1989) Chronic back pain (Unknown) Chronic venous insufficiency Foot pain (2003) GERD (gastroesophageal reflux disease) (Unknown) Heavy menses (Unknown) IBS (irritable bowel syndrome) (1985) Neuropathy Obstructive sleep apnea (Unknown) Painful menstrual periods (Unknown) Restless leg syndrome (2015) Shoulder pain (Unknown) Vertigo (1979) Physical Therapy Inpatient Evaluation/Re-Eval M1 PT/OT-IP Prior Functional Status Start: 08/04/21 13:01 Freq: NEEDED Status: Active Protocol: Document 08/04/21 09:55 AB (Rec: 08/04/21 13:14 AB [email or web address]) Medical Review Prior Functional Status Medical History Reviewed Yes Communication able to make nees known Mobility and Gait pt stated that she is independent with all mobilities and ambulation using FWW Social History Household Members spouse,other Living Arrangements House Number of Floors (Floors) One Floor Number of Stairs To Enter/Railing? 5 steps L rail ascending to enter Home Environment Standard Height Toilet,Tub/ Shower Home Equipment Front Wheel Walker,Tub Transfer Bench,Grab Bars In Shower Additional Social History Comment pt has her spouse and mother at home to assist her M2 PT-IP Current Condition Start: 08/04/21 13:01 Freq: NEEDED Status: Active Protocol: Document 08/04/21 09:55 AB (Rec: 08/04/21 13:14 AB [email or web address]) Physical Therapy Current Condition Current Condition Evaluation Date 08/04/21 Treatment Diagnosis PNA; AMS; difficulty in walking Onset Date 07/31/21 M3 PT-IP Subjective Start: 08/04/21 13:01 Freq: NEEDED Status: Active Protocol: Document 08/04/21 09:55 AB (Rec: 08/04/21 13:14 AB [email or web address]) Subjective Physical Therapy Visit Type Type Initial Evaluation Visit Start Time 09:55 Visit Stop Time 10:25 Total Visit Minutes 30 Number of MAINTENANCE SUPERVISOR Visits 0 Physical Therapy Visit Comments Patient Comments agreeable to do PT Therapy Pain Assessment Pain When Pain Assessed At Rest Pain Present Pain Present Pain Reported Location Left Knee Intensity 4 Scale Used Numeric (0 - 10) Description Chronic M4 PT-IP Mobility and Gait Start: 08/04/21 13:01 Freq: NEEDED Status: Active Protocol: Document 08/04/21 09:55 AB (Rec: 08/04/21 13:14 AB [id number]) PT-Bed Mobility Assessment Supine to Sit Supine to Sit Standby Assistance Sit to Supine Sit to Supine Standby Assistance PT-Transfer Assessment Sit to and From Stand Sit to and from Stand Standby Assistance,1 Person Assistance,Use of Upper Extremities Equipment Transfer Assistive Device Gait Belt,Front Wheeled Walker Orthotic/Prosthetic Devices or Brace: No Comments Mobility Comments pt completed supine to sit SBA . pt stated that she does not use O2 at home. O2 sat with O2 on 96%. O2 sat at room air at rest: 94% able to sit on EOB SBA. completed sit to stand SBA and ambulated in room using FWW SBA ~ 30 ft. O2 sat: 87-89% after ambulation. pt sat on EOB and rested and O2 sat increased to 90-92% within 2 sec. pt completed up/down step stool using L rail with B hands min A and cues. pt requested to go back to bed. completed sit to supine SBA. positioned pt in bed. call ight and table placed within reach. Gait Assessment Gait Gait Assistance Required: Standby Assistance Distance (Feet) 30 Able to Maintain Weight Bearing Status Yes During Gait Assistive Devices Assistive Device Gait Belt,Front Wheeled Walker Orthotic/Prosthetic Devices or Brace: No Gait Deviations General Gait Pattern Antalgic,Decreased Stride Length,Decreased Feet Clearance Factors Limiting Gait Function Factors Limiting Gait Function Decreased Activity Tolerance, Decreased Strength,Pain,Poor Balance,Poor Safety Awareness Stair Climbing Assessment Evaluation Level of Assist On Stairs Minimal Assistance Devices Stair Climbing Assistive Devices Left Railing Technique/Endurance Stair Climbing Direction Ascend and Descend Stair Climbing Technique Step to Step Number of Steps Climbed 1 Query Text: Stair Climbing Set # Repetitions (reps) 1 PT-Balance Assessment Sitting Balance and Reactions Static Sitting Balance Ability Good Dynamic Sitting Balance Ability Good Standing Balance and Reactions Static Standing Balance Ability Fair Dynamic Standing Balance Ability Fair Device Used FWW M5 PT-IP Objective Assessments Start: 08/04/21 13:01 Freq: NEEDED Status: Active Protocol: Document 08/04/21 09:55 AB (Rec: 08/04/21 13:14 AB [email or web address]) Orientation Orientation/Cognition Level of Alertness Alert Orientation Name,Place,Situation Language Function Ability No Deficits Noted Safety Awareness Decreased Safety Awareness Memory Description Short Term Impaired Gross Range of Motion Lower Extremity ROM Assessment Within Functional Limits Strength Lower Extremity Strength Assessment Left Impaired Hip 4-/5 Knee 3+/5 Coordination Assessment Gross Coordination Gross Coordination WNL Sensation Assessment Sensation Gross Sensation WNL Muscle Tone Muscle Tone WNL Yes M6 PT-IP Treatment Start: 08/04/21 13:01 Freq: NEEDED Status: Active Protocol: Document 08/04/21 09:55 AB (Rec: 08/04/21 13:14 AB [id number]) Physical Therapy Treatment Education Education Provided Safety M7 PT-IP Assessment and Plan Start: 08/04/21 13:01 Freq: NEEDED Status: Active Protocol: Document 08/04/21 09:55 AB (Rec: 08/04/21 13:14 AB [email or web address]) PT Summary Assessment and Plan Potential Rehabilitation Potential Good Status of Condition at Evaluation Evolving Summary Impairments Pain,ROM,Strength,Balance, Coordination,Cognition,Bed Mobility,Transfers,Gait, Activity Tolerance Assessment Summary pt requiring SBA with ambulation using FWW but required min A for stair climbing. O2 sat decreased to 87-89% at room air with activity and pt has decrease activity tolerance. will continue to assess progress. pt stated that her spouse will be able to assist her at home . Goals Bed Mobility Goal Independent Transfer Goal Independent,Front Wheeled Walker Gait Goal Independent,Front Wheel Walker Gait Distance 250 Other Goals up/down 5 steps L rail SBA Days to Meet Goals 5 Frequency of Treatment Frequency Of Treatment Once a Day Treatment Plan Physical Therapy Treatment Plan Bed Mobility Training,Transfer Training,Gait Training, Therapeutic Exercise,Balance Retraining,Discharge Planning, Hot or Cold Pack,Neuromuscular Re-ed,Coordination Retraining Precautions Other Precautions O2 sat Recommendations To Nursing Amount of Assist Needed 1 Person Assist Discharge Recommendations PT Discharge Recommendations Home with Assistance, Outpatient PT Transportation Needs at Discharge Private Vehicle
[2021-08-04] MEDS: POTASSIUM CHLORIDE 20 MEQ TAB 40 MEQ PO (12:18)
--- NOTE | 2021-08-04 12:41 | PM.PN.1 ---
Subjective Subjective Date Patient Seen: 08/04/21 Time Patient Seen: 12:41 Interval history: No complaints of chest pain, cough, shortness of breath though she is still requiring oxygen but now with exertion mainly. Exam Vital Signs (past 8 hours): - 08/04/21 05:15 08/04/21 08:01 08/04/21 09:17 Temperature 98.3 F 98.2 F Pulse Rate 70 74 73 Respiratory Rate 17 16 16 Blood Pressure 99/58 L 112/72 Pulse Oximetry 99 94 94 08/04/21 09:51 08/04/21 12:00 Temperature 98.4 F Pulse Rate 71 Respiratory Rate 18 Blood Pressure 118/76 Pulse Oximetry 94 94 Oxygen Delivery Method High Flow Nasal Cannula Oxygen Flow Rate 2 Narrative Exam Narrative: Gen: well developed, disheveled female in no acute distress. CV: RRR no m/r/g Pulm: diffuse rhochi, no wheezing. Abd: S NT ND Ext: multiple bruises and scabs, notable on hands and distal extremities. No edema Neuro: Alert and oriented today, much improved mentation. No focal deficits. no tremor today. Objective Labs Result Diagrams: 08/04/21 04:44 08/04/21 04:44 Labs: Laboratory Results - last 24 hr 08/04/21 08/04/21 04:44 04:44 WBC 12.5 H RBC 3.78 L Hgb 11.0 L Hct 33.0 L MCV 87.3 MCH 29.1 MCHC 33.3 RDW 16.5 H Plt Count 234 Neut % (Auto) 71.7 Lymph % (Auto) 20.8 L [place] % (Auto) 5.0 Eos % (Auto) 2.3 Baso % (Auto) 0.2 Neut # (Auto) 9000 H Lymph # (Auto) 2600 [place] # (Auto) 600 Eos # (Auto) 300 Baso # (Auto) 0 Sodium 137 Potassium 3.3 L Chloride 105 Carbon Dioxide 35 H BUN 25 H Creatinine 0.40 L Estimated GFR > 60.0 BUN/Creatinine Ratio 62.5 H Glucose 79 Calcium 8.7 PFSH Medical History Allergy (Unknown) Anxiety (1989) Chronic back pain (Unknown) Chronic venous insufficiency Foot pain (2003) GERD (gastroesophageal reflux disease) (Unknown) Heavy menses (Unknown) IBS (irritable bowel syndrome) (1985) Neuropathy Obstructive sleep apnea (Unknown) Painful menstrual periods (Unknown) Restless leg syndrome (2014) Shoulder pain (Unknown) Vertigo (1979) Surgical History History of removal of laparoscopic gastric banding device (2014) Hx of laparoscopic gastric banding (2011) Hx of sinus surgery (2011) 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 Sepsis secondary to presumed pnuemonia, with acute metabolic encephalopathy and acute respiratory failure with hypoxia, with probable asthma exacerbation. ?- continue ceftriaxone and azithromycin. ?- CT abdomen without abdominal pathologies, does show bilateral lower lobe infiltrates. ?- UA contaminated but no WBC, unlikely source. ?- metabolic encephalopathy likely worsened in setting ? medication compliance with many of her medications. ?- SOFA score at least 2 on admit due to encephalopathy and respiratory failure. ?- continue to wean O2 as able, was as high as 11L. ?- respiratory panel negative. - started prednisone on 08/03 for possible asthma exacerbation given continued hypoxia, with some improvement. 2. myocardial injury ?- 0.205 troponin now improving. likely in setting of pneumonia, acute respiratory failure. EKG without evidence of obvious ischemia. ?- echocardiogram with a normal EF and no significant wall motion abnormalities. 3. alcohol use / depression and anxiety / possible mild alcohol withdrawal. ?- follows with psychiatry here.have resumed home medications today as patient states she did not stop them. ?- mild tremulousness and anxiety yesterday., monitor for EtOH withdrawal, has a prn benzo for anxiety as well. Much improved today. ?- last drink she reports was on 3/6. Has a history of withdrawal but no seizures or intubations in the past.? Code: Full Dispo: remains inpatient, possibly home tomorrow if no long requiring supplemental oxygen. Time Spent With Patient Critical Care time: I spent a total of [] minutes of critical care time on this patient's care today; this time is exclusive of procedural time.
[2021-08-04] MEDS: BACLOFEN 10 MG TABLET 20 MG PO (16:07)
[2021-08-04] MEDS: risperiDONE 0.25 MG TABLET 0.5 MG PO (22:58)
[2021-08-04] MEDS: clonazePAM 0.5 MG TABLET PO (22:59)
[2021-08-04] MEDS: ESCITALOPRAM 10 MG TABLET 20 MG PO (23:02)
[2021-08-05 00:27] VITALS: BP 97/55; PULSE 65; RESP 18; TEMP 36.9; O2SAT 96
[2021-08-05 05:59] LABS: Add Manual Diff / Slide Review NO; Basophils Absolute Auto 0 /uL (0-100); Basophils Percent Auto 0.2 % (0-2); Eosinophils Absolute Auto 100 /uL (0-450); Eosinophils Percent Auto 1.1 % (2-4); Hemoglobin 10.6 g/dL (12.0-16.0); Lymphocytes Absolute Auto 2100 /uL (1100-4500); Lymphocytes Percent Auto 17.8 % (25-40); Mean Corpuscular HGB Conc 33.2 % (30-36); Mean Corpuscular Hemoglobin 28.9 PG (26-34); Monocytes Absolute Auto 500 /uL (0-900); Monocytes Percent Auto 4.2 % (3-14); Neutrophils Absolute Auto 9200 /uL (1500-7000); Neutrophils Percent Auto 76.7 % (50-75); Platelet Count 243 X10^3/uL (150-400); Red Blood Cell Count 3.67 X10^6/uL (4.0-5.2); Red Cell Distribution Width 16.7 % (11.6-14.8)
[2021-08-05 06:04] LABS: BUN Creatinine Ratio 46.3 (6-22); Blood Urea Nitrogen 19 mg/dL (7-17); Calcium 8.8 mg/dL (8.4-10.2); Carbon Dioxide 34 mmol/L (22-32); Chloride 107 mmol/L (98-107); Estimated Glomerular Filt Rate > 60.0 mL/min (>60); Glucose 90 mg/dL (70-100); HEMOLYSIS < 15 (0-50); Potassium 3.4 mmol/L (3.4-5.1); Sodium 139 mmol/L (137-145)
[2021-08-05 06:24] VITALS: BP 120/83; PULSE 69; RESP 17; TEMP 36.9; O2SAT 96
[2021-08-05 08:09] LABS: Magnesium 2.2 mg/dL (1.6-2.3)
[2021-08-05 08:13] VITALS: BP 133/77; O2SAT 94
[2021-08-05] MEDS: cefTRIAXone 1,000 MG in SODIUM CHLORIDE 0.9% 100 ML 200 ML IV (08:13)
[2021-08-05] MEDS: ASPIRIN EC 81 MG TABLET PO (08:13)
[2021-08-05] MEDS: GABAPENTIN 300 MG CAPSULE PO (08:13)
[2021-08-05] MEDS: POTASSIUM CHLORIDE 20 MEQ TAB 40 MEQ PO (08:14)
[2021-08-05] MEDS: ENOXAPARIN 40 MG/0.4 ML SYRINGE SUBCUT (08:14)
[2021-08-05] MEDS: guaiFENesin ER 600 MG TAB PO (08:14)
[2021-08-05] MEDS: PROPRANOLOL 10 MG TABLET 20 MG PO (08:14)
[2021-08-05] MEDS: predniSONE 20 MG TABLET 40 MG PO (08:14)
[2021-08-05] MEDS: MULTIVITAMIN 1 TABLET 1 TAB PO (08:14)
[2021-08-05] MEDS: FOLIC ACID 1 MG TABLET PO (08:14)
[2021-08-05 08:15] VITALS: BP 100/60; PULSE 72; RESP 19; TEMP 36.9; O2SAT 93
[2021-08-05] MEDS: SODIUM CHLORIDE 0.9% FLUSH 10 ML IV (08:15)
--- NOTE | 2021-08-05 08:26 | PM.DS.1 ---
History of Present Illness History of Present Illness Chief complaint: Confusion Discharge Providers Provider Date of admission: 07/31/21 21:29 Primary care physician: Barry Em MD Consults: 08/01/21 01:02 Consult to Respiratory Therapy Evaluate & Treat Comment: Acute respiratory failure/ graeme Physician Instructions: Evaluate and treat 08/03/21 14:11 Consult to Physical Therapy Evaluate & Treat Comment: Physician Instructions: Evaluate and Treat Discharge provider: Allan Olivares MD Summary Hospital Course Hospital Course: 1. Sepsis secondary to presumed pnuemonia, with acute metabolic encephalopathy and acute respiratory failure with hypoxia, with probable asthma exacerbation. ?- continue ceftriaxone and azithromycin. ?- CT abdomen without abdominal pathologies, does show bilateral lower lobe infiltrates. ?- UA contaminated but no WBC, unlikely source. ?- metabolic encephalopathy likely worsened in setting ? medication compliance with many of her medications. ?- SOFA score at least 2 on admit due to encephalopathy and respiratory failure. ?- continue to wean O2 as able, was as high as 11L. ?- respiratory panel negative. - started prednisone on 08/03 for possible asthma exacerbation given continued hypoxia, with some improvement. 2. myocardial injury ?- 0.205 troponin now improving. likely in setting of pneumonia, acute respiratory failure. EKG without evidence of obvious ischemia. ?- echocardiogram with a normal EF and no significant wall motion abnormalities. 3. alcohol use / depression and anxiety / possible mild alcohol withdrawal. ?- follows with psychiatry here.have resumed home medications today as patient states she did not stop them. ?- mild tremulousness and anxiety yesterday., monitor for EtOH withdrawal, has a prn benzo for anxiety as well. Much improved today. ?- last drink she reports was on 07/30. Has a history of withdrawal but no seizures or intubations in the past.? Code: Full Dispo: remains inpatient, possibly home tomorrow if no long requiring supplemental oxygen. Exam Vital Signs (past 8 hours): - 08/05/21 00:27 08/05/21 06:24 Temperature 98.5 F 98.4 F Pulse Rate 65 69 Respiratory Rate 18 17 Blood Pressure 97/55 L 120/83 Pulse Oximetry 96 96 Oxygen Delivery Method High Flow Nasal Cannula Oxygen Flow Rate 2 Objective Labs Result Diagrams: 08/05/21 05:09 08/05/21 05:09 Labs: Laboratory Results - last 24 hr 08/05/21 08/05/21 08/05/21 05:09 05:09 08:00 WBC 12.0 H RBC 3.67 L Hgb 10.6 L Hct 32.0 L MCV 87.0 MCH 28.9 MCHC 33.2 RDW 16.7 H Plt Count 243 Neut % (Auto) 76.7 H Lymph % (Auto) 17.8 L [place] % (Auto) 4.2 Eos % (Auto) 1.1 L Baso % (Auto) 0.2 Neut # (Auto) 9200 H Lymph # (Auto) 2100 [place] # (Auto) 500 Eos # (Auto) 100 Baso # (Auto) 0 Sodium 139 Potassium 3.4 Chloride 107 Carbon Dioxide 34 H BUN 19 H Creatinine 0.41 L Estimated GFR > 60.0 BUN/Creatinine Ratio 46.3 H Glucose 90 Calcium 8.8 Magnesium 2.2 PFSH Medical History Allergy (Unknown) Anxiety (1989) Chronic back pain (Unknown) Chronic venous insufficiency Foot pain (2003) GERD (gastroesophageal reflux disease) (Unknown) Heavy menses (Unknown) IBS (irritable bowel syndrome) (1985) Neuropathy Obstructive sleep apnea (Unknown) Painful menstrual periods (Unknown) Restless leg syndrome (2014) Shoulder pain (Unknown) Vertigo (1979) Surgical History History of removal of laparoscopic gastric banding device (2014) Hx of laparoscopic gastric banding (2011) Hx of sinus surgery (2011) 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) Family History Grandmother Cancer Mental health problem Mother Age: 73 Mental health disorder Sister Age: 55 Heart disease Hypertension High cholesterol Mental health problem Asthma COPD (chronic obstructive pulmonary disease) Social History household members: spouse and other Smoking Status: Current every day smoker Tobacco: How many years used: 10 second hand exposure: No alcohol intake: former substance use type: does not use Discharge Plan Discharge orders & Medications Prescriptions: No Action albuterol sulfate 90 mcg/actuation aerosol powdr breath activated 2 puff INHALATION Q4H PRN (Reason: shortness of breath or wheezing) Qty: 1 0RF Label Comments: few weeks Rx Instructions: administer with spacer hydroxyzine HCl 50 mg tablet 50 mg PO BID PRN (Reason: anxiety) Qty: 180 1RF Rx Instructions: 90 days gabapentin 300 mg capsule 300 mg PO TID Qty: 90 2RF clonazepam 0.5 mg tablet 0.5 mg PO BID PRN (Reason: Anxiety) Qty: 60 2RF Rx Instructions: Do not take with alcohol. escitalopram oxalate 20 mg tablet 20 mg PO DAILY Qty: 90 3RF Rx Instructions: Take 1 tab by mouth daily ondansetron HCl 8 mg tablet 8 mg PO BID-TID PRN (Reason: nausea and vomiting) Qty: 180 0RF propranolol 20 mg tablet 20 mg PO BID Qty: 180 0RF Label Comments: Takes for PTSD risperidone 0.5 mg tablet See Rx Instructions PO DAILY Qty: 90 1RF Dose Instruction: Take 0.5-1 tab by mouth at bedtime PO DAILY; Rx Instructions: Take 0.5-1 tab by mouth at bedtime acetaminophen 500 mg capsule 500 mg PO Q4H MDD Max 6 tabs per day PRN (Reason: fever or pain) Qty: 90 0RF ibuprofen 400 mg Tablet 400 mg PO Q4HR MDD Max 2400 mg per day PRN (Reason: Pain/inflammation) Qty: 90 0RF baclofen 20 mg tablet 20 mg PO TID PRN (Reason: Muscle Spasm) 0RF Follow up/Referrals: Barry Em MD [Primary Care Provider] - Discharge Data Primary Care Provider: Barry Em
[2021-08-05] MEDS: BACLOFEN 10 MG TABLET 20 MG PO (09:51)
--- NOTE | 2021-08-05 10:17 | PT.IPTN ---
Current Diagnoses Pneumonia, unspecified organism (07/31/21) Physical Therapy Treatment Note M2 PT-IP Current Condition Start: 08/04/21 13:01 Freq: NEEDED Status: Discharge Protocol: Document 08/04/21 09:55 AB (Rec: 08/04/21 13:14 AB [id number]) Physical Therapy Current Condition Current Condition Evaluation Date 08/04/21 Treatment Diagnosis PNA; AMS; difficulty in walking Onset Date 07/31/21 M3 PT-IP Subjective Start: 08/04/21 13:01 Freq: NEEDED Status: Discharge Protocol: Document 08/05/21 10:17 AB (Rec: 08/05/21 12:43 AB [email or web address]) Subjective Physical Therapy Visit Type Type Treatment Note Visit Start Time 10:17 Visit Stop Time 10:30 Total Visit Minutes 13 Number of CERTIFIED 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 Visits 0 Physical Therapy Visit Comments Patient Comments agreed to do PT M4 PT-IP Mobility and Gait Start: 08/04/21 13:01 Freq: NEEDED Status: Discharge Protocol: Document 08/05/21 10:17 AB (Rec: 08/05/21 12:43 AB [email or web address]) PT-Bed Mobility Assessment Supine to Sit Supine to Sit Standby Assistance Sit to Supine Sit to Supine Standby Assistance PT-Transfer Assessment Sit to and From Stand Sit to and from Stand Standby Assistance Equipment Transfer Assistive Device Gait Belt,Front Wheeled Walker Orthotic/Prosthetic Devices or Brace: No Comments Mobility Comments pt agreed to do PT but refused stair climbing training. stated that she is fine with stairs. pt agreed to ambulate with PT. O2 sat at room air prior to mobiltiy: 94%. completed supine to sit SBA. ambulated in room ~ 50 ft using FWW SBA. pt sat back on EOB. O2 sat at room air after ambulation: 93%. pt completed sit to supine SBA. positioned in bed. call light and table placed within reach . Gait Assessment Gait Gait Assistance Required: Standby Assistance Distance (Feet) 50 Able to Maintain Weight Bearing Status Yes During Gait Assistive Devices Assistive Device Gait Belt,Front Wheeled Walker Orthotic/Prosthetic Devices or Brace: No Gait Deviations General Gait Pattern Antalgic,Decreased Stride Length,Decreased Feet Clearance Factors Limiting Gait Function Factors Limiting Gait Function Decreased Activity Tolerance, Poor Balance M5 PT-IP Objective Assessments Start: 08/04/21 13:01 Freq: NEEDED Status: Discharge Protocol: Document 08/04/21 09:55 AB (Rec: 08/04/21 13:14 AB [id number]) Orientation Orientation/Cognition Level of Alertness Alert Orientation Name,Place,Situation Language Function Ability No Deficits Noted Safety Awareness Decreased Safety Awareness Memory Description Short Term Impaired Gross Range of Motion Lower Extremity ROM Assessment Within Functional Limits Strength Lower Extremity Strength Assessment Left Impaired Hip 4-/5 Knee 3+/5 Coordination Assessment Gross Coordination Gross Coordination WNL Sensation Assessment Sensation Gross Sensation WNL Muscle Tone Muscle Tone WNL Yes M6 PT-IP Treatment Start: 08/04/21 13:01 Freq: NEEDED Status: Discharge Protocol: Document 08/05/21 10:17 AB (Rec: 08/05/21 12:43 AB [id number]) Physical Therapy Treatment Education Education Provided Safety M7 PT-IP Assessment and Plan Start: 08/04/21 13:01 Freq: NEEDED Status: Discharge Protocol: Document 08/05/21 10:17 AB (Rec: 08/05/21 12:43 AB [email or web address]) PT Summary Assessment and Plan Potential Rehabilitation Potential Fair Summary Impairments Pain,ROM,Strength,Balance, Coordination,Sensation,Tone, Cognition,Bed Mobility, Transfers,Gait,Activity Tolerance Assessment Summary pt requiring SBA with mobility using FWW and will have her spouse to assist her at home. pt may go home when medically stable and will benefit from outpt PT Goals Bed Mobility Goal Independent Transfer Goal Independent,Front Wheeled Walker Gait Goal Independent,Front Wheel Walker Gait Distance 250 Other Goals up/down 5 steps L rail SBA Days to Meet Goals 5 Frequency of Treatment Frequency Of Treatment Once a Day Treatment Plan Physical Therapy Treatment Plan Bed Mobility Training,Transfer Training,Gait Training, Therapeutic Exercise,Balance Retraining,Discharge Planning, Hot or Cold Pack,Neuromuscular Re-ed,Coordination Retraining Precautions Other Precautions O2 sat Recommendations To Nursing Amount of Assist Needed 1 Person Assist Discharge Recommendations PT Discharge Recommendations Home with Assistance, Outpatient PT Transportation Needs at Discharge Private Vehicle
--- NOTE | 2021-08-05 10:39 | PM.DS.1 ---
History of Present Illness History of Present Illness Date Patient Seen: 08/05/21 Time Patient Seen: 09:30 Chief complaint: Confusion Narrative: initial CC: shortness of breath today: I feel better Feeling well this morning slept well feels ready to go home able to ambulate without O2 no fevers VSS. Discharge Providers Provider Date of admission: 07/31/21 21:29 Discharge Date: 08/05/21 Primary care physician: Barry Em MD Consults: 08/01/21 01:02 Consult to Respiratory Therapy Evaluate & Treat Comment: Acute respiratory failure/ graeme Physician Instructions: Evaluate and treat 08/03/21 14:11 Consult to Physical Therapy Evaluate & Treat Comment: Physician Instructions: Evaluate and Treat Discharge provider: Jay Jay Serrano MD Summary Hospital Course Discharge Diagnosis: #sepsis pneumonia #asthma exacerbation #anxiety/depression #hx of alcohol use Hospital Course: Pt admitted from ED with confusion and evident pulmonary dysfunction part pneumonia part asthma exacerbation, she was treated with antibiotics and steroids and improved. No seizures this admission we did ffollow [facility] protocol. She was able to resume her home meds and ambulate without oxygen by DoD will f/u with PCP next week. Status at Discharge Cognitive/behavioral status at discharge: at baseline, oriented Overall status at discharge: patient is progressing back to baseline Exam Vital Signs (past 8 hours): - 08/05/21 06:24 08/05/21 08:13 08/05/21 08:15 Temperature 98.4 F 98.4 F Pulse Rate 69 72 Respiratory Rate 17 19 Blood Pressure 120/83 133/77 100/60 Pulse Oximetry 96 94 93 Oxygen Delivery Method Room Air Oxygen Flow Rate 0 Narrative Exam Narrative: laying in bed alert on phone Const General: cooperative and comfortable HENMT Head: normocephalic and atraumatic Eyes General: appearance normal, both eyes and all related structures Resp Other: clear to auscultation bilaterally speaking in complete sentences easy air movement smoker's cough Cardio Other: RRR, S1/S2 GI Other: soft nontender nondistended normal bowel sounds Neuro General: patient alert, patient awake, patient oriented x3, moves all extremities and CN's II-XI intact bilaterally Extrem General: full ROM Psych Appearance: grossly normal and disheveled Mental Status: mental status grossly normal Objective Labs Result Diagrams: 08/05/21 05:09 08/05/21 05:09 Labs: Laboratory Results - last 24 hr 08/05/21 08/05/21 08/05/21 05:09 05:09 08:00 WBC 12.0 H RBC 3.67 L Hgb 10.6 L Hct 32.0 L MCV 87.0 MCH 28.9 MCHC 33.2 RDW 16.7 H Plt Count 243 Neut % (Auto) 76.7 H Lymph % (Auto) 17.8 L [place] % (Auto) 4.2 Eos % (Auto) 1.1 L Baso % (Auto) 0.2 Neut # (Auto) 9200 H Lymph # (Auto) 2100 [place] # (Auto) 500 Eos # (Auto) 100 Baso # (Auto) 0 Sodium 139 Potassium 3.4 Chloride 107 Carbon Dioxide 34 H BUN 19 H Creatinine 0.41 L Estimated GFR > 60.0 BUN/Creatinine Ratio 46.3 H Glucose 90 Calcium 8.8 Magnesium 2.2 PFSH Medical History Allergy (Unknown) Anxiety (1989) Chronic back pain (Unknown) Chronic venous insufficiency Foot pain (2003) GERD (gastroesophageal reflux disease) (Unknown) Heavy menses (Unknown) IBS (irritable bowel syndrome) (1985) Neuropathy Obstructive sleep apnea (Unknown) Painful menstrual periods (Unknown) Restless leg syndrome (2014) Shoulder pain (Unknown) Vertigo (1979) Surgical History History of removal of laparoscopic gastric banding device (2014) Hx of laparoscopic gastric banding (2011) Hx of sinus surgery (2011) 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) Family History Grandmother Cancer Mental health problem Mother Age: 73 Mental health disorder Sister Age: 55 Heart disease Hypertension High cholesterol Mental health problem Asthma COPD (chronic obstructive pulmonary disease) Social History household members: spouse and other Smoking Status: Current every day smoker Tobacco: How many years used: 10 second hand exposure: No alcohol intake: former substance use type: does not use Discharge Assessment & Plan Assessment and Plan Assessment: #Sepsis secondary to presumed pnuemonia, with acute metabolic encephalopathy and acute respiratory failure with hypoxia, with probable asthma exacerbation. bilateral infiltrates on admit CT, neg respiratory panel, s/p tx with ceftriaxone and azithromycin feleling much better with just smoker's cough now. #metabolic encephalopathy improved Able to ambulate with no O2 keeping sats above 90% today ok to go home, lungs sounds good no crackles or wheezes started prednisone on 08/03 for possible asthma exacerbation given continued hypoxia, with some improvement; finish 5 day course with dc script #myocardial injury initial 0.205 troponin which improved, in setting of pneumonia, acute respiratory failure. EKG without evidence of obvious ischemia. echocardiogram with a normal EF and no significant wall motion abnormalities. #alcohol use / depression and anxiety / possible mild alcohol withdrawal. ?follows with psychiatry here and with PCP in [place]. have resumed home medications today as patient states she did not stop them. ?mild tremulousness and anxiety yesterday., monitor for EtOH withdrawal, has a prn benzo for anxiety as well. Much improved today. ?last drink she reports was on 07/30. Has a history of withdrawal but no seizures or intubations in the past.?no issues this admission. advised to continue the abstention form alcohol and tobacco she has ahieved with this admission. Code: Full Dispo: remains inpatient, possibly home tomorrow if no long requiring supplemental oxygen. Time spent on discharge includign face to face and coordination of care and documentation : 40 minutes Discharge Plan Discharge Plan Patient Disposition: Home Discharge orders & Medications Prescriptions: New prednisone 20 mg Tablet 40 mg PO DAILY 2 Days Qty: 2 0RF Continued albuterol sulfate 90 mcg/actuation aerosol powdr breath activated 2 puff INHALATION Q4H PRN (Reason: shortness of breath or wheezing) Qty: 1 0RF Label Comments: few weeks Rx Instructions: administer with spacer hydroxyzine HCl 50 mg tablet 50 mg PO BID PRN (Reason: anxiety) Qty: 180 1RF Rx Instructions: 90 days gabapentin 300 mg capsule 300 mg PO TID Qty: 90 2RF clonazepam 0.5 mg tablet 0.5 mg PO BID PRN (Reason: Anxiety) Qty: 60 2RF Rx Instructions: Do not take with alcohol. escitalopram oxalate 20 mg tablet 20 mg PO DAILY Qty: 90 3RF Rx Instructions: Take 1 tab by mouth daily ondansetron HCl 8 mg tablet 8 mg PO BID-TID PRN (Reason: nausea and vomiting) Qty: 180 0RF propranolol 20 mg tablet 20 mg PO BID Qty: 180 0RF Label Comments: Takes for PTSD risperidone 0.5 mg tablet See Rx Instructions PO DAILY Qty: 90 1RF Dose Instruction: Take 0.5-1 tab by mouth at bedtime PO DAILY; Rx Instructions: Take 0.5-1 tab by mouth at bedtime acetaminophen 500 mg capsule 500 mg PO Q4H MDD Max 6 tabs per day PRN (Reason: fever or pain) Qty: 90 0RF ibuprofen 400 mg Tablet 400 mg PO Q4HR MDD Max 2400 mg per day PRN (Reason: Pain/inflammation) Qty: 90 0RF baclofen 20 mg tablet 20 mg PO TID PRN (Reason: Muscle Spasm) 0RF Follow up/Referrals: Barry Em MD [Primary Care Provider] - Discharge Data Primary Care Provider: Barry Em
== END 2021-08-05 11:34 | disposition home or self-care (01) | DRG 871 ==
LOC: ED 21:27 → AC 21:30
PROVIDERS: Emergency Medicine; Internal Medicine; Admitting Provider Nurse Practitioner Family; Emergency Provider Emergency Medicine; Family Provider Family Medicine; PCP Family Medicine; Referring Provider Emergency Medicine; Visit Provider Nurse Practitioner Family
DX: A41.9 Sepsis, unspecified organism (principal); J96.01 Acute respiratory failure with hypoxia; G93.41 Metabolic encephalopathy; J18.9 Pneumonia, unspecified organism; I5A Non-ischemic myocardial injury (non-traumatic); F33.1 Major depressive disorder, recurrent, moderate; J45.901 Unspecified asthma with (acute) exacerbation; R65.20 Severe sepsis without septic shock; E87.6 Hypokalemia; F10.20 Alcohol dependence, uncomplicated; Y90.0 Blood alcohol level of less than 20 mg/100 ml; F17.210 Nicotine dependence, cigarettes, uncomplicated; F41.9 Anxiety disorder, unspecified; G89.29 Other chronic pain; M54.9 Dorsalgia, unspecified; Z20.822 Contact with and (suspected) exposure to COVID-19
CPT/HCPCS: 36415; 36600; 51701; 70450; 71045; 71275; 80048; 80053; 80061; 80305; 80320; 80329; 81001; 81025; 82140; 82550; 82553; 82805; 83605; 83690; 83735; 83880; 84145; 84443; 84484; 85025; 85610; 85730; 87040; 87070; 87075; 87077; 87086; 87147; 87186; 87205; 87633; 87635; 93005; 93010; 93306; 94640; 94660; 94762; 96361; 96365; 96366; 96367; 96375; 97116; 97162; 99285; 99291; 99406; C9803; G0480; J0696; J1650; J1885; J1940; J1956; Q9967

== ENCOUNTER 2021-08-11 11:31 | Inpatient (IN) | payer OTHER, MEDICAID, SELFPAY ==
[2021-08-01 00:22] VITALS: BMI 27.1
[2021-08-11] VITALS (14 sets, daily range): BP systolic 112–149; BP diastolic 61–87; PULSE 65–109; RESP 15–35; TEMP 36.5–37.1; O2SAT 92–98; BMI 27.3
--- NOTE | 2021-08-11 | DI.CT.S_ITS ---
PROCEDURE: CT LE LT W CON INDICATIONS: FALL. Left ankle deformaty TECHNIQUE: Noncontrast 1-1.5 mm axial sections acquired from above the tibiotalar joint to the bottom of the calcaneus, with coronal and sagittal reformats. COMPARISON: [facility], CR, XR ANKLE LT MIN 3V, 08/11/2021, 11:45. FINDINGS: Image quality: Excellent. Bones: Trimalleolar fracture of the ankle with disruption of the ankle mortise. Diffuse osteopenia. The remaining visualized osseous structures appear maintained. An os peroneum is seen. Soft tissues: Diffuse soft tissue edema. Small tibiotalar joint effusion. The Achilles tendon is suboptimally evaluated but intact. IMPRESSION: Trimalleolar fracture of the ankle. Dictated by: Bethel Salvador M.D. on 08/11/2021 at 14:53 Approved by: Bethel Salvador M.D. on 08/11/2021 at 14:55
--- NOTE | 2021-08-11 11:27 | DI.RAD.S_ITS ---
PROCEDURE: XR ANKLE LT MIN 3V INDICATIONS: obvious deformity TECHNIQUE: 3 views of the ankle were acquired. COMPARISON: None. FINDINGS: Bones: There is a displaced fracture of the medial and lateral malleolus with displacement of the talus laterally and widening of the tibiofibular syndesmosis. Soft tissues: No tibiotalar joint effusion. Achilles tendon appears normal. IMPRESSION: Bimalleolar fracture with displacement. Dictated by: Simone Mcdowell M.D. on 08/11/2021 at 12:57 Approved by: Simone Mcdowell M.D. on 08/11/2021 at 12:58
--- NOTE | 2021-08-11 11:27 | DI.RAD.S_ITS ---
PROCEDURE: XR PELVIS 1-2V INDICATIONS: trauma, altered TECHNIQUE: 1 view(s) of the pelvis acquired. COMPARISON: None. FINDINGS: Bones: No fractures or dislocations. No suspicious bony lesions. Mild degenerative changes of the hips. Soft tissues: Visualized bowel gas pattern is normal. No suspicious soft tissue calcifications. IMPRESSION: No acute abnormality. Dictated by: Simone Mcdowell M.D. on 08/11/2021 at 12:53 Approved by: Simone Mcdowell M.D. on 08/11/2021 at 12:54
--- NOTE | 2021-08-11 11:27 | DI.RAD.S_ITS ---
PROCEDURE: XR KNEE LT 1TO2V INDICATIONS: fall with obvious deformity TECHNIQUE: 3 views of the knee were acquired. COMPARISON: [facility], CR, XR KNEE LT 1TO2V, 03/31/2021, 16:54. FINDINGS: Bones: Postoperative changes of total knee replacement. No perihardware lucency or perihardware fracture. There is a splint in place over the leg. Soft tissues: No joint effusion. No suspicious soft tissue calcifications. IMPRESSION: No acute abnormality identified. There is motion and artifact from overlying splint. Consider repeat x-ray without splint and when patient is able to be still. Dictated by: Simone Mcdowell M.D. on 08/11/2021 at 12:55 Approved by: Simone Mcdowell M.D. on 08/11/2021 at 12:57
--- NOTE | 2021-08-11 11:28 | DI.RAD.S_ITS ---
PROCEDURE: XR CHEST 1V INDICATIONS: trauma, altered TECHNIQUE: One view of the chest was acquired. COMPARISON: [facility], , XR CHEST 1V, 07/31/2021, 16:10. FINDINGS: Surgical changes and devices: None. Lungs and pleura: Patchy bilateral airspace opacities seen on the prior x-ray have significantly improved but are still minimally present. No pneumothorax or pleural effusion. No focal consolidation or mass. Mediastinum: Mediastinal contours appear normal. Heart size is normal. Bones and chest wall: No suspicious bony lesions. Overlying soft tissues appear unremarkable. IMPRESSION: Diffuse patchy bilateral airspace opacities, significantly improved compared to 07/31/2021. Dictated by: Simone Mcdowell M.D. on 08/11/2021 at 12:59 Approved by: Simone Mcdowell M.D. on 08/11/2021 at 12:59
--- NOTE | 2021-08-11 11:30 | ED.AMS ---
HPI - Altered Mental Status General Chief Complaint: Neuro Symptoms/Deficit Stated Complaint: Ankle deformity and fainting spells Time Seen by Provider: 08/11/21 11:34 History of Present Illness HPI narrative: 51-year-old female daily smoker with history of alcohol abuse, major depressive disorder, anxiety and reflux presents by EMS for evaluation of syncopal episodes as well as an obvious deformity to her left ankle. She states she has had multiple falls but injured herself yesterday. She denies any head neck or back pain. She denies any chest pain or shortness of breath. She has no nausea, vomiting or diarrhea. She is unclear as to why she did not present to us yesterday. On arrival EMS found her ankle be grossly deformed when she tried to stand up and they reduced it and put it in a splint. She denies any recent alcohol or drugs. She has had no fever chills, denies new medications or dietary change Related Data Home Medications Medication Instructions Recorded Confirmed baclofen 20 mg tablet 20 mg PO TID PRN 08/02/21 08/02/21 Previous Rx's Medication Instructions Recorded albuterol sulfate 90 mcg/actuation 2 puff INHALATION Q4H PRN #1 each 12/30/17 breath activated powder inhaler hydroxyzine HCl 50 mg tablet 50 mg PO BID PRN #180 tab 02/07/21 acetaminophen 500 mg capsule 500 mg PO Q4H PRN #90 cap MDD Max 04/03/21 6 tabs per day ibuprofen 400 mg tablet 400 mg PO Q4HR PRN #90 tab MDD Max 04/03/21 2400 mg per day gabapentin 300 mg capsule 300 mg PO TID #90 cap 05/08/21 clonazepam 0.5 mg tablet 0.5 mg PO BID PRN #60 tab 07/17/21 escitalopram oxalate 20 mg tablet 20 mg PO DAILY #90 tab 07/19/21 ondansetron HCl 8 mg tablet 8 mg PO BID-TID PRN #180 tab 07/26/21 propranolol 20 mg tablet 20 mg PO BID #180 tab 07/27/21 risperidone 0.5 mg tablet See Rx Instructions PO DAILY #90 07/27/21 tab Allergies Allergy/AdvReac Type Severity Reaction Status Date / Time No Known Drug Allergies Allergy Verified 08/11/21 11:32 Review of Systems Review of Systems Narrative: GENERAL: Denies chills, fatigue, malaise, fever, sweats. HEENT: Denies sinus pain, ear pain, sore throat, difficulty swallowing, dizziness. RESPIRATORY: Denies dyspnea, cough, wheezing, hemoptysis, sputum. CARDIOVASCULAR: See HPI GASTROINTESTINAL: Denies nausea, vomiting, abdominal pain, diarrhea, constipation, melena. : Denies dysuria, frequency, incontinence, hematuria, urinary retention. MUSCULOSKELETAL: See HPI SKIN: Denies rash, skin lesions, or other NEUROLOGIC: Denies weakness, headache, numbness, change in speech, confusion, seizures, incoordination. PSYCHIATRIC: No concerning psychosocial issues. 12 point review of systems is negative except for those stated above Patient History Medical History Allergy (Unknown) Anxiety (1989) Chronic back pain (Unknown) Chronic venous insufficiency Foot pain (2003) GERD (gastroesophageal reflux disease) (Unknown) Heavy menses (Unknown) IBS (irritable bowel syndrome) (1985) Neuropathy Obstructive sleep apnea (Unknown) Painful menstrual periods (Unknown) Restless leg syndrome (2014) Shoulder pain (Unknown) Vertigo (1979) Surgical History History of removal of laparoscopic gastric banding device (2014) Hx of laparoscopic gastric banding (2011) Hx of sinus surgery (2011) 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) Family History Grandmother Cancer Mental health problem Mother Age: 73 Mental health disorder Sister Age: 55 Heart disease Hypertension High cholesterol Mental health problem Asthma COPD (chronic obstructive pulmonary disease) Social History household members: spouse and family Smoking Status: Current every day smoker Tobacco: How many years used: 10 second hand exposure: No alcohol intake: former substance use type: does not use Exam Narrative Exam Narrative: GENERAL: [51 year old patient appears stated age. Well-developed patient, in mild distress. Slurring her words, but confused, GCS 14 (confusion) HEAD: Atraumatic. Normocephalic. No evidence of depressed skull fracture EYES: Pupils equal round and reactive. No hyphema Extraocular motions intact. No scleral icterus. No injection or drainage. ENT: Nose without bleeding, purulent drainage. No nasal septal hematoma or hemotympanum Throat without erythema, tonsillar hypertrophy or exudate. Airway patent. NECK: Trachea midline. Non tender CARDIOVASCULAR: Regular rate and rhythm without murmurs, gallops, or rubs. RESPIRATORY: Clear to auscultation. Breath sounds equal bilaterally. No wheezes, rales, or rhonchi. GASTROINTESTINAL: Abdomen soft, non-tender, nondistended. EXTREMITIES: Obvious deformity of left ankle with some bruising but no clear break in the skin, closed, isolated and neurovascularly intact BACK: Nontender without deformity or crepitance. No flank tenderness. NEURO: AOx3. Cranial nerves 2-12 grossly intact SKIN: No rash or erythema of visible areas Initial Vital Signs Initial Vital Signs: Vital Signs Pulse Rate 83 08/11/21 11:30 Respiratory Rate 15 08/11/21 11:30 Blood Pressure 149/86 H 08/11/21 11:30 Pulse Oximetry 98 08/11/21 11:30 Procedures Orthopedic Splinting/Casting Injury #1: Lower Extremity Injury Location: ankle Lower Extremity Immobilizer: Mason dressing Post splinting neuro exam: intact Post splinting vascular exam: intact Placed by: Nursing Course Orders Ordered: ED Orders 08/11/21 20:05 Urinalysis and Microscopic Stat Urine Drug Screen, Rapid Stat Acetaminophen (Acetaminophen 325 Mg Tablet) 975 mg PO Q8HR PRN PRN Reason: pain Last Admin: 08/12/21 02:00 Dose: 975 mg Documented by: [email or web address] Baclofen (Baclofen 10 Mg Tablet) 20 mg PO TID PRN PRN Reason: Muscle Spasm Last Admin: 08/11/21 20:21 Dose: 20 mg Documented by: [email or web address] Bisacodyl (Bisacodyl 10 Mg Supp) 10 mg CO DAILY PRN PRN Reason: Constipation Clonazepam (Clonazepam 0.5 Mg Tablet) 0.5 mg PO BID PRN PRN Reason: Anxiety Last Admin: 08/11/21 21:47 Dose: 0.5 mg Documented by: [email or web address] Docusate Sodium (Docusate 100 Mg Capsule) 100 mg PO BID MIMI Last Admin: 08/11/21 20:21 Dose: 100 mg Documented by: [email or web address] Enoxaparin Sodium (Enoxaparin 40 Mg/0.4 Ml Syringe) 40 mg SUBCUT DAILY [facility] Escitalopram Oxalate (Escitalopram 10 Mg Tablet) 20 mg PO DAILY [facility] Gabapentin (Gabapentin 300 Mg Capsule) 300 mg PO TID [facility] Last Admin: 08/11/21 20:21 Dose: 300 mg Documented by: [email or web address] Hydroxyzine Pamoate (Hydroxyzine Pamoate 25 Mg Capsule) 50 mg PO Q6HR PRN PRN Reason: Nausea Last Admin: 08/11/21 23:24 Dose: 50 mg Documented by: [email or web address] Sodium Chloride (Normal Saline 0.9%) 1,000 mls @ 150 mls/hr IV CONT [facility] Last Infusion: 08/11/21 23:32 Dose: 150 mls/hr Documented by: [email or web address] Infusion: 08/11/21 15:15 Dose: 0 mls/hr Documented by: Admin: 08/11/21 12:09 Dose: 150 mls/hr Documented by: ATAYLOR Ketorolac Tromethamine (Ketorolac 30 Mg/Ml Vial) 30 mg IV Q6H [facility] Stop: 08/14/21 17:14 Last Admin: 08/12/21 00:15 Dose: 30 mg Documented by: [email or web address] Admin: 08/11/21 19:29 Dose: 30 mg Documented by: [email or web address] Naloxone HCl (Naloxone 0.4 Mg/Ml Vial) 0.2 mg IV Q2MIN PRN PRN Reason: Opiate Reversal Ondansetron HCl (Ondansetron 4 Mg/2 Ml Inj) 4 mg IV Q8HR PRN PRN Reason: Nausea And Vomiting Oxycodone HCl (Oxycodone Ir 10 Mg Tablet) 10 mg PO Q4HR PRN PRN Reason: Pain, Severe (7-10) Last Admin: 08/12/21 02:30 Dose: 10 mg Documented by: [email or web address] Admin: 08/11/21 21:47 Dose: 10 mg Documented by: [email or web address] Propranolol HCl (Propranolol 10 Mg Tablet) 20 mg PO BID [facility] Last Admin: 08/11/21 21:50 Dose: 20 mg Documented by: [email or web address] Risperidone (Risperidone 0.25 Mg Tablet) 0.5 mg PO BEDTIME [facility] Last Admin: 08/11/21 20:22 Dose: 0.5 mg Documented by: [email or web address] Zolpidem Tartrate (Zolpidem 5 Mg Tablet) 10 mg PO BEDTIME PRN PRN Reason: Sleep Last Admin: 08/12/21 02:56 Dose: 10 mg Documented by: [email or web address] Discontinued Medications Nicotine (Nicotine 21 Mg Patch) 21 mg TOP NOW ONE Stop: 08/11/21 13:17 Last Admin: 08/11/21 13:43 Dose: 21 mg Documented by: ATAYLOR Consultations Consultation #1: discussed with paper cone grader ortho, fractures reviewed, recommends Bulky Mason dressing, would consider surgery during this hospitalization if she is in house for a few days. We discussed her waxing/waning mental status and my hesitance to sedate and reduce subtle lateral displacement of ankle fracture in the ED, he is aware and states it is not necessary given minimal displacement. Vital Signs Vital signs: Vital Signs - 8 hr 08/11/21 11:30 08/11/21 11:33 08/11/21 11:37 Temperature 97.7 F Pulse Rate 83 82 Respiratory Rate 15 19 Blood Pressure 149/86 H Pulse Oximetry 98 96 08/11/21 12:00 08/11/21 12:02 08/11/21 12:30 Temperature Pulse Rate 79 70 65 Respiratory Rate 18 15 15 Blood Pressure 146/82 H 144/87 H Pulse Oximetry 96 96 97 08/11/21 13:04 08/11/21 13:13 08/11/21 13:33 Temperature Pulse Rate 84 84 86 Respiratory Rate 22 16 34 H Blood Pressure 132/67 Pulse Oximetry 92 98 98 08/11/21 13:55 08/11/21 14:00 Temperature Pulse Rate 87 80 Respiratory Rate 35 H 34 H Blood Pressure 137/77 Pulse Oximetry MDM - Altered Mental Status Lab Data Result diagrams: 08/11/21 11:49 08/11/21 11:49 Labs: Lab Results 08/11/21 08/11/21 08/11/21 Range/Units 11:36 11:49 11:49 WBC 10.1 (4.5-11.0) X10^3/uL RBC 3.64 L (4.0-5.2) X10^6/uL Hgb 10.8 L (12.0-16.0) g/dL Hct 31.9 L (36-46) % MCV 87.6 (80-100) fL MCH 29.6 (26-34) PG MCHC 33.8 (30-36) % RDW 17.9 H (11.6-14.8) % Plt Count 451 H (150-400) X10^3/uL Neut % (Auto) 93.0 H (50-75) % Lymph % (Auto) 4.5 L (25-40) % [place] % (Auto) 2.1 L (3-14) % Eos % (Auto) 0.1 L (2-4) % Baso % (Auto) 0.3 (0-2) % Neut # (Auto) 9300 H (5407-2627) /uL Lymph # (Auto) 400 L (2138-7328) /uL [place] # (Auto) 200 (0-900) /uL Eos # (Auto) 0 (0-450) /uL Baso # (Auto) 0 (0-100) /uL Sodium 143 (137-145) mmol/L Potassium 3.6 (3.4-5.1) mmol/L Chloride 112 H (98-107) mmol/L Carbon Dioxide 25 (22-32) mmol/L BUN 10 (7-17) mg/dL Creatinine 0.43 L (0.52-1.04) mg/dL Estimated GFR > 60.0 (>60) mL/min BUN/Creatinine Ratio 23.3 H (6-22) Glucose 135 H (70-100) mg/dL Lactate (0.7-2.1) mmol/L Calcium 9.4 (8.4-10.2) mg/dL Total Bilirubin 0.5 (0.2-1.3) mg/dL AST 22 (14-36) IU/L ALT 10 (<35) IU/L Alkaline Phosphatase 115 (38-126) U/L Ammonia (9-30) umol/L Total Creatine Kinase 29 L (30-135) U/L CK-MB (CK-2) TNP CK-MB (CK-2) Rel Index TNP Troponin I < 0.012 (0.01-0.034) ng/mL Total Protein 6.7 (6.3-8.2) g/dL Albumin 3.4 L (3.5-5.0) g/dL Globulin 3.3 (1.7-4.1) g/dL Albumin/Globulin Ratio 1.0 (1.0-2.8) Procalcitonin 0.05 (<0.5) ng/mL TSH (0.47-4.68) uIU/mL Prolactin 6.2 (3.0-18.6) ng/mL Serum , Qual (Negative) Salicylates < 1.0 (<20) mg/dL Acetaminophen < 10 (10-30) ug/mL Ethyl Alcohol < 10 ( - 10) mg/dL SARS-CoV-2 (PCR) Negative (Negative) 08/11/21 08/11/21 08/11/21 Range/Units 11:49 11:49 11:49 WBC (4.5-11.0) X10^3/uL RBC (4.0-5.2) X10^6/uL Hgb (12.0-16.0) g/dL Hct (36-46) % MCV (80-100) fL MCH (26-34) PG MCHC (30-36) % RDW (11.6-14.8) % Plt Count (150-400) X10^3/uL Neut % (Auto) (50-75) % Lymph % (Auto) (25-40) % [place] % (Auto) (3-14) % Eos % (Auto) (2-4) % Baso % (Auto) (0-2) % Neut # (Auto) (1801-2480) /uL Lymph # (Auto) (5245-5942) /uL [place] # (Auto) (0-900) /uL Eos # (Auto) (0-450) /uL Baso # (Auto) (0-100) /uL Sodium (137-145) mmol/L Potassium (3.4-5.1) mmol/L Chloride (98-107) mmol/L Carbon Dioxide (22-32) mmol/L BUN (7-17) mg/dL Creatinine (0.52-1.04) mg/dL Estimated GFR (>60) mL/min BUN/Creatinine Ratio (6-22) Glucose (70-100) mg/dL Lactate 0.8 (0.7-2.1) mmol/L Calcium (8.4-10.2) mg/dL Total Bilirubin (0.2-1.3) mg/dL AST (14-36) IU/L ALT (<35) IU/L Alkaline Phosphatase (38-126) U/L Ammonia < 9 L (9-30) umol/L Total Creatine Kinase (30-135) U/L CK-MB (CK-2) CK-MB (CK-2) Rel Index Troponin I (0.01-0.034) ng/mL Total Protein (6.3-8.2) g/dL Albumin (3.5-5.0) g/dL Globulin (1.7-4.1) g/dL Albumin/Globulin Ratio (1.0-2.8) Procalcitonin (<0.5) ng/mL TSH 0.963 D (0.47-4.68) uIU/mL Prolactin (3.0-18.6) ng/mL Serum , Qual (Negative) Salicylates (<20) mg/dL Acetaminophen (10-30) ug/mL Ethyl Alcohol ( - 10) mg/dL SARS-CoV-2 (PCR) (Negative) 08/11/21 Range/Units 11:49 WBC (4.5-11.0) X10^3/uL RBC (4.0-5.2) X10^6/uL Hgb (12.0-16.0) g/dL Hct (36-46) % MCV (80-100) fL MCH (26-34) PG MCHC (30-36) % RDW (11.6-14.8) % Plt Count (150-400) X10^3/uL Neut % (Auto) (50-75) % Lymph % (Auto) (25-40) % [place] % (Auto) (3-14) % Eos % (Auto) (2-4) % Baso % (Auto) (0-2) % Neut # (Auto) (8829-7168) /uL Lymph # (Auto) (8966-8818) /uL [place] # (Auto) (0-900) /uL Eos # (Auto) (0-450) /uL Baso # (Auto) (0-100) /uL Sodium (137-145) mmol/L Potassium (3.4-5.1) mmol/L Chloride (98-107) mmol/L Carbon Dioxide (22-32) mmol/L BUN (7-17) mg/dL Creatinine (0.52-1.04) mg/dL Estimated GFR (>60) mL/min BUN/Creatinine Ratio (6-22) Glucose (70-100) mg/dL Lactate (0.7-2.1) mmol/L Calcium (8.4-10.2) mg/dL Total Bilirubin (0.2-1.3) mg/dL AST (14-36) IU/L ALT (<35) IU/L Alkaline Phosphatase (38-126) U/L Ammonia (9-30) umol/L Total Creatine Kinase (30-135) U/L CK-MB (CK-2) CK-MB (CK-2) Rel Index Troponin I (0.01-0.034) ng/mL Total Protein (6.3-8.2) g/dL Albumin (3.5-5.0) g/dL Globulin (1.7-4.1) g/dL Albumin/Globulin Ratio (1.0-2.8) Procalcitonin (<0.5) ng/mL TSH (0.47-4.68) uIU/mL Prolactin (3.0-18.6) ng/mL Serum , Qual Negative (Negative) Salicylates (<20) mg/dL Acetaminophen (10-30) ug/mL Ethyl Alcohol ( - 10) mg/dL SARS-CoV-2 (PCR) (Negative) Imaging Data CT scan - head: Radiologist's Impression: [address] [address] [address] Scan Report Signed Patient: Rebekah Washington MR#: [id number] : 1970 Acct:[id number] Age/Sex: 51 / F Date of Service: 08/11/21 Loc: ED Accession Number: [id number] ?? Procedure: CT head/brain wo con Ordering Provider: Ramos Kate D.O. PROCEDURE:? CT HEAD/BRAIN WO CON ? INDICATIONS:? altered, trauma ? TECHNIQUE:? Noncontrast 4.5 mm thick angled axial sections acquired from the foramen magnum to the vertex, with coronal and sagittal reformats.? For radiation dose reduction, the following was used:? automated exposure control, adjustment of mA and/or kV according to patient size.? ? COMPARISON:? None. ? FINDINGS:? Image quality:? Excellent.? ? CSF spaces:? Basal cisterns are patent.? No extra-axial fluid collections.? Ventricles are normal in size and shape.? ? Brain:? No midline shift.? No intracranial masses or hemorrhage.? Deshpande-white matter interface is normal.? ? Skull and face:? Calvarium and visualized facial bones are intact, without suspicious lesions.? ? Sinuses:? Visualized sinuses and mastoids are clear.? ? IMPRESSION:? No CT evidence of acute traumatic cervical spine injury. ? ? Dictated by: Cole Nick M.D. on 08/11/2021 at 13:34 ? ? Approved by: Cole Nick M.D. on 08/11/2021 at 13:35 CT - cervical spine: Radiologist's Impression: Launch?[place] [address] CT Scan Report Signed Patient: Rebekah Washington MR#: [id number] : 1970 Acct:[id number] Age/Sex: 51 / F Date of Service: 08/11/21 Loc: ED Accession Number: [id number] ?? Procedure: CT cervical spine wo con Ordering Provider: Ramos Kate D.O. PROCEDURE:? CT CERVICAL SPINE WO CON ? INDICATIONS:? Trauma ? TECHNIQUE:? Noncontrast 3 mm thick sections acquired from the skull base to the T4 level.? Sagittal and coronal reformats were then constructed.? For radiation dose reduction, the following was used:? automated exposure control, adjustment of mA and/or kV according to patient size.? ? COMPARISON:? None. ? FINDINGS:? Image quality:? Excellent.? ? Bones:? No fractures or dislocations.? Visualized superior ribs are intact.? ? Soft tissues:? Prevertebral soft tissues are normal in thickness.? No paravertebral hematomas.? No apical pneumothoraces.? ? ? IMPRESSION:? No CT evidence of acute traumatic cervical spine injury. ? Dictated by: Cole Nick M.D. on 08/11/2021 at 13:35 ? ? Approved by: Cole Nick M.D. on 08/11/2021 at 13:36 ? Discharge Plan Departure Patient Disposition: Admitted As Inpatient Clinical Impression: Altered mental status, Closed sacral fracture, Compression fx, lumbar spine Admit Date/Time: 08/11/21 14:47 Admit Provider: Rachael Mahoney
[2021-08-11 11:58] LABS: COVID19 -Nasal RAPID Negative (Negative)
[2021-08-11 12:03] LABS: Add Manual Diff / Slide Review NO; Basophils Absolute Auto 0 /uL (0-100); Basophils Percent Auto 0.3 % (0-2); Eosinophils Absolute Auto 0 /uL (0-450); Eosinophils Percent Auto 0.1 % (2-4); Hematocrit 31.9 % (36-46); Hemoglobin 10.8 g/dL (12.0-16.0); Lymphocytes Absolute Auto 400 /uL (1100-4500); Lymphocytes Percent Auto 4.5 % (25-40); Mean Corpuscular HGB Conc 33.8 % (30-36); Mean Corpuscular Hemoglobin 29.6 PG (26-34); Mean Corpuscular Volume 87.6 fL (80-100); Monocytes Absolute Auto 200 /uL (0-900); Monocytes Percent Auto 2.1 % (3-14); Neutrophils Absolute Auto 9300 /uL (1500-7000); Platelet Count 451 X10^3/uL (150-400); Red Blood Cell Count 3.64 X10^6/uL (4.0-5.2); Red Cell Distribution Width 17.9 % (11.6-14.8); White Blood Cell Count 10.1 X10^3/uL (4.5-11.0)
[2021-08-11 12:06] LABS: Ammonia (NH3) < 9 umol/L (9-30)
[2021-08-11] MEDS: SODIUM CHLORIDE 0.9% 1,000 ML 150 ML IV (12:09)
[2021-08-11 12:10] LABS: Pregnancy Test Serum,Qual Negative (Negative)
[2021-08-11 12:18] LABS: Acetaminophen < 10 ug/mL (10-30); Alanine Aminotransferase 10 IU/L (<35); Albumin 3.4 g/dL (3.5-5.0); Alkaline Phosphatase 115 U/L (38-126); Aspartate Aminotransferase 22 IU/L (14-36); BUN Creatinine Ratio 23.3 (6-22); Bilirubin Total 0.5 mg/dL (0.2-1.3); Blood Urea Nitrogen 10 mg/dL (7-17); Calcium 9.4 mg/dL (8.4-10.2); Carbon Dioxide 25 mmol/L (22-32); Chloride 112 mmol/L (98-107); Creatine Kinase 29 U/L (30-135); Estimated Glomerular Filt Rate > 60.0 mL/min (>60); Ethanol (ETOH) < 10 mg/dL; Globulin 3.3 g/dL (1.7-4.1); Glucose 135 mg/dL (70-100); Lactate (Lactic Acid) 0.8 mmol/L (0.7-2.1); Potassium 3.6 mmol/L (3.4-5.1); Salicylate < 1.0 mg/dL (<20); Sodium 143 mmol/L (137-145); Total Protein 6.7 g/dL (6.3-8.2)
--- NOTE | 2021-08-11 12:24 | DI.CT.S_ITS ---
PROCEDURE: CT CHEST ABD PEL W CON INDICATIONS: trauma TECHNIQUE: After the administration of intravenous contrast, 5 mm thick sections acquired from the lung apices to the symphysis. 2.5 mm thick coronal and sagittal reformats were acquired. Additional 7 mm thick coronal maximum intensity projection (MIP) reformats acquired through the lungs. Optional 10-minute delayed imaging may be performed from the kidneys to the bladder. For radiation dose reduction, the following was used: automated exposure control, adjustment of mA and/or kV according to patient size. COMPARISON: [facility], CT, IVP (ABD & PEL WWO CONTRAST), 03/05/2016, 10:08. [facility], CT, CT ANGIO CHEST PE PROTOCOL, 07/31/2021, 19:24. FINDINGS: Image quality: Good. Mild motion artifact. CHEST: Lungs: No pulmonary contusions or lacerations. Bilateral patchy airspace opacity, moderate severity and improving compared to 07/31/2021. No pneumothorax or hemothorax. Central and peripheral airways appear patent and normal in caliber. Mediastinum: No mediastinal hematomas. Heart size is normal. No pericardial effusion. Thoracic aorta and pulmonary arteries demonstrate normal size and enhancement. No mediastinal or hilar adenopathy. Esophagus is normal in caliber. No hiatal hernia. Chest wall: Right 3-6th rib fractures without displacement, unchanged. No subcutaneous emphysema. No axillary or supraclavicular adenopathy. Thyroid gland is unremarkable. ABDOMEN: Solid organs: Liver is normal in size and enhancement, without lacerations. Gallbladder is unremarkable. Biliary system is non-dilated. Pancreas enhances normally, without transection. Spleen is normal in size and enhancement, without lacerations. No adrenal hematomas. Both kidneys enhance normally, without hydronephrosis or lacerations. Peritoneum and bowel: No free fluid or air. Unenhanced bowel loops demonstrate normal wall thickness and caliber. Gastric sleeve. Prominent stool in the rectum. Normal appendix. Nodes and vessels: No retroperitoneal or mesenteric adenopathy. Aorta and inferior vena cava are normal in size and enhancement. Miscellaneous: No ventral hernias. PELVIS: Genitourinary: Bladder wall thickness is normal. Miscellaneous: No inguinal hernias or adenopathy. Bones: Pelvic ring and hip joints appear intact. Anterior L3 vertebral body fracture, (), new. The fracture is in the vertical plane at the anterior portion of the vertebral body. There is no retropulsion of fracture fragment. There is mild overall height loss. There is a left sacral fracture at S1-S2, ( and ). Motion limits evaluation in the pelvis. The irregularities at the anterior pubic rami are felt to be due to artifact IMPRESSION: Image quality is mildly degraded by artifact. 1. L3 fracture. Left sacrum fracture. 2. Right 3 through 6th rib fractures are unchanged. These could be subacute or chronic as there is callus formation. 3. No solid parenchymal injury identified. No free fluid. Dictated by: Hal Hartman M.D. on 08/11/2021 at 12:48 Approved by: Hal Hartman M.D. on 08/11/2021 at 13:08
--- NOTE | 2021-08-11 12:24 | DI.CT.S_ITS ---
PROCEDURE: CT HEAD/BRAIN WO CON INDICATIONS: altered, trauma TECHNIQUE: Noncontrast 4.5 mm thick angled axial sections acquired from the foramen magnum to the vertex, with coronal and sagittal reformats. For radiation dose reduction, the following was used: automated exposure control, adjustment of mA and/or kV according to patient size. COMPARISON: None. FINDINGS: Image quality: Excellent. CSF spaces: Basal cisterns are patent. No extra-axial fluid collections. Ventricles are normal in size and shape. Brain: No midline shift. No intracranial masses or hemorrhage. Deshpande-white matter interface is normal. Skull and face: Calvarium and visualized facial bones are intact, without suspicious lesions. Sinuses: Visualized sinuses and mastoids are clear. IMPRESSION: No CT evidence of acute traumatic cervical spine injury. Dictated by: Cole Nick M.D. on 08/11/2021 at 13:34 Approved by: Cole Nick M.D. on 08/11/2021 at 13:35
--- NOTE | 2021-08-11 12:24 | DI.CT.S_ITS ---
PROCEDURE: CT CERVICAL SPINE WO CON INDICATIONS: Trauma TECHNIQUE: Noncontrast 3 mm thick sections acquired from the skull base to the T4 level. Sagittal and coronal reformats were then constructed. For radiation dose reduction, the following was used: automated exposure control, adjustment of mA and/or kV according to patient size. COMPARISON: None. FINDINGS: Image quality: Excellent. Bones: No fractures or dislocations. Visualized superior ribs are intact. Soft tissues: Prevertebral soft tissues are normal in thickness. No paravertebral hematomas. No apical pneumothoraces. IMPRESSION: No CT evidence of acute traumatic cervical spine injury. Dictated by: Cole Nick M.D. on 08/11/2021 at 13:35 Approved by: Cole Nick M.D. on 08/11/2021 at 13:36
[2021-08-11 12:31] LABS: HEMOLYSIS < 15 (0-50); Troponin I < 0.012 ng/mL (0.01-0.034)
[2021-08-11 12:33] LABS: Procalcitonin 0.05 ng/mL (<0.5); Prolactin 6.2 ng/mL (3.0-18.6)
[2021-08-11 12:45] LABS: Thyroid Stimulating Hormone 0.963 uIU/mL (0.47-4.68)
[2021-08-11] MEDS: NICOTINE 21 MG PATCH TOP (13:43)
--- NOTE | 2021-08-11 13:59 | PC.NURSE ---
Pt awake, continuously removing blood pressure cuff and pulse ox, repeat education on indications for monitors, pt states my blood pressure is always fine. Pt appears antsy, requesting to smoke or nicotine gum despite repeat education.
--- NOTE | 2021-08-11 14:02 | PC.NURSE ---
Attempted x2 to collect urine sample, pt also having bowel movements both times into bed grimes with urine.
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
--- NOTE | 2021-08-11 15:38 | PC.NURSE ---
Posterior and Sugar Jose Carlos Splint applied to left lower extremity with Salena ODEN. Wrap, orthoglass, and steve wrap utilized. CMS intact and left dorsalis pedis pulse intact.
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
--- NOTE | 2021-08-11 18:43 | PC.NURSE ---
pt arrived from ED from at 1530. L ankle in splint. Pt is non weight bearing, awaiting ortho consult. She complains of mild back pain and wanting to smoke. She removed her nicotine patch. VSS, afebrile on RA. She is slightly confused and mentally altered talking to herself and joining in conversation fragments in the field. Pt with good po intake this evening. Awaiting patient to void to send urine for tox screen. No s/sx of ETOH withdrawl at this time. Continuous monitoring.
[2021-08-11] MEDS: KETOROLAC 30 MG/ML VIAL IV (19:29)
[2021-08-11] MEDS: GABAPENTIN 300 MG CAPSULE PO (20:21)
[2021-08-11] MEDS: BACLOFEN 10 MG TABLET 20 MG PO (20:21)
[2021-08-11] MEDS: DOCUSATE 100 MG CAPSULE PO (20:21)
[2021-08-11] MEDS: risperiDONE 0.25 MG TABLET 0.5 MG PO (20:22)
[2021-08-11 21:16] LABS: UR Morphine/Opiate cutoff 300 Negative (Negative); Ur Creatinine Normal (Normal); Ur Specific Gravity Normal (Normal); Urine Amphetamines Negative (Negative); Urine Barbiturates Negative (Negative); Urine Benzodiazepines Positive (Negative); Urine Cocaine Negative (Negative); Urine MDMA Negative (Negative); Urine Methadone Negative (Negative); Urine Methamphetamines Negative (Negative); Urine Oxycodone Negative (Negative); Urine Phencyclidine Negative (Negative); Urine Tetrahydrocannabinol Negative (Negative); Urine Tricyclic Antidepressant Negative (Negative); Urine pH Normal (Normal)
[2021-08-11 21:19] LABS: Appearance Urine UA CLEAR; Bilirubin Urine UA NEGATIVE (NEGATIVE); Color Urine UA YELLOW; Glucose Urine UA NEGATIVE (Negative); Ketones Urine UA NEGATIVE (NEGATIVE); Leukocyte Esterase Urine UA 1+ (NEGATIVE); Nitrite Urine UA NEGATIVE (Negative); Occult Blood Urine UA TRACE-LYSED (Negative); Protein Urine UA NEGATIVE (Negative); Urobilinogen Urine UA 0.2 E.U./dL (0.2)
[2021-08-11 21:22] LABS: pH Urine UA 6.5 (4.5-8.0)
[2021-08-11 21:23] LABS: Bacteria Urine Few (2-10); Culture Indicated Urine Specimen Cultured; RBC Urine None Seen (0-5/HPF); Squamous Epithelial Cell Urine 1-5 /HPF (0-5/HPF); WBC Urine 5-10/HPF (0-5/HPF)
[2021-08-11] MEDS: OXYCODONE IR 10 MG TABLET PO (21:47)
[2021-08-11] MEDS: clonazePAM 0.5 MG TABLET PO (21:47)
[2021-08-11] MEDS: PROPRANOLOL 10 MG TABLET 20 MG PO (21:50)
[2021-08-11] MEDS: hydrOXYzine pamoate 25 MG CAPSULE 50 MG PO (23:24)
[2021-08-12] MEDS: KETOROLAC 30 MG/ML VIAL IV ×5 (00:15→22:44)
[2021-08-12] MEDS: ACETAMINOPHEN 325 MG TABLET 975 MG PO ×2 (02:00→20:23)
[2021-08-12] MEDS: OXYCODONE IR 10 MG TABLET PO ×4 (02:30→20:23)
[2021-08-12] MEDS: ZOLPIDEM 5 MG TABLET 10 MG PO (02:56)
--- NOTE | 2021-08-12 05:12 | PC.NURSE ---
Shift Report: Patient was alert and oriented to person and place, but with episode of confusion. Afebrile, vital signs within acceptable limits. IV access reinserted at right hand, IV fluids restarted. Patient became agitated and complaint of pain on left ankle, due pain meds given as ordered, however patient still asking for more pain medicines, appears more agitated and restless, Dr. Olivares notified and ordered a dose of ambien, patient was able to sleep. Dressing at left leg looks clean, dry and intact. Patient was able to get up from bed and use the bedside commode with one person assist.
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
[2021-08-12 08:30] VITALS: O2SAT 95
[2021-08-12] MEDS: PROPRANOLOL 10 MG TABLET 20 MG PO ×2 (08:50→20:22)
[2021-08-12] MEDS: ENOXAPARIN 40 MG/0.4 ML SYRINGE SUBCUT (08:51)
[2021-08-12] MEDS: ESCITALOPRAM 10 MG TABLET 20 MG PO (08:51)
[2021-08-12] MEDS: GABAPENTIN 300 MG CAPSULE PO ×3 (08:51→20:22)
[2021-08-12] MEDS: DOCUSATE 100 MG CAPSULE PO (08:51)
[2021-08-12] MEDS: SODIUM CHLORIDE 0.9% 1,000 ML 150 ML IV ×3 (08:58→22:51)
--- NOTE | 2021-08-12 10:44 | PM.CN ---
History of Present Illness Consult details Date Patient Seen: 08/12/21 Time Patient Seen: 10:30 Chief complaint: Ankle deformity and fainting spells Reason for consult: Ankle fracture Requesting provider: Allan Olivares Narrative: 51-year-old female who was admitted yesterday due to a fall resulting in a left ankle fracture. Patient denies any loss of consciousness. Not complaining of any other injuries despite the ankle. Patient does state she has longstanding lower back pain which was an issue before the fall. Is not complaining of any increasing any back or pelvic pain since the fall. Meds Home Medications and Allergies Home Medications Medication Instructions Recorded Confirmed Type albuterol sulfate 90 mcg/actuation 2 puff INHALATION Q4H PRN #1 each 12/30/17 08/01/21 Rx breath activated powder inhaler hydroxyzine HCl 50 mg tablet 50 mg PO BID PRN #180 tab 02/07/21 08/01/21 Rx acetaminophen 500 mg capsule 500 mg PO Q4H PRN #90 cap MDD Max 04/03/21 08/01/21 Rx 6 tabs per day ibuprofen 400 mg tablet 400 mg PO Q4HR PRN #90 tab MDD Max 04/03/21 08/01/21 Rx 2400 mg per day gabapentin 300 mg capsule 300 mg PO TID #90 cap 05/08/21 08/01/21 Rx clonazepam 0.5 mg tablet 0.5 mg PO BID PRN #60 tab 07/17/21 08/01/21 Rx escitalopram oxalate 20 mg tablet 20 mg PO DAILY #90 tab 07/19/21 08/01/21 Rx ondansetron HCl 8 mg tablet 8 mg PO BID-TID PRN #180 tab 07/26/21 08/01/21 Rx propranolol 20 mg tablet 20 mg PO BID #180 tab 07/27/21 08/01/21 Rx risperidone 0.5 mg tablet See Rx Instructions PO DAILY #90 07/27/21 08/01/21 Rx tab baclofen 20 mg tablet 20 mg PO TID PRN 08/02/21 08/02/21 History Allergies Allergy/AdvReac Type Severity Reaction Status Date / Time No Known Drug Allergies Allergy Verified 08/11/21 11:32 Exam Vital Signs (past 8 hours): - 08/12/21 08:30 Pulse Oximetry 95 Oxygen Delivery Method Room Air Oxygen Flow Rate 0 Narrative Exam Narrative: Patient's ankle is in a splint. Positive dorsiflexion and plantar flexion of the toes. Brisk cap refill. Compartments are soft. No sign of any knee swelling or instability. No pain with range of motion of the knee or hip. Neurovascularly intact. No pain or discomfort with range of motion of the right lower extremity. No sign of any swelling or instability of the right ankle knee or knee. No pain with range of motion of the right ankle knee or hip. Upper extremities free of any abnormalities bilaterally. Objective Labs Result Diagrams: 08/11/21 11:49 08/11/21 11:49 Labs: Laboratory Results - last 24 hr 08/11/21 08/11/21 08/11/21 11:36 11:49 11:49 WBC 10.1 RBC 3.64 L Hgb 10.8 L Hct 31.9 L MCV 87.6 MCH 29.6 MCHC 33.8 RDW 17.9 H Plt Count 451 H Neut % (Auto) 93.0 H Lymph % (Auto) 4.5 L [place] % (Auto) 2.1 L Eos % (Auto) 0.1 L Baso % (Auto) 0.3 Neut # (Auto) 9300 H Lymph # (Auto) 400 L [place] # (Auto) 200 Eos # (Auto) 0 Baso # (Auto) 0 Sodium 143 Potassium 3.6 Chloride 112 H Carbon Dioxide 25 BUN 10 Creatinine 0.43 L Estimated GFR > 60.0 BUN/Creatinine Ratio 23.3 H Glucose 135 H Lactate Calcium 9.4 Total Bilirubin 0.5 AST 22 ALT 10 Alkaline Phosphatase 115 Ammonia Total Creatine Kinase 29 L CK-MB (CK-2) TNP CK-MB (CK-2) Rel Index TNP Troponin I < 0.012 Total Protein 6.7 Albumin 3.4 L Globulin 3.3 Albumin/Globulin Ratio 1.0 Procalcitonin 0.05 TSH Prolactin 6.2 Serum , Qual Urine Color Urine Appearance Urine pH Ur Specific Regent Urine Protein Urine Glucose (UA) Urine Ketones Urine Occult Blood Urine Nitrate Urine Bilirubin Urine Urobilinogen Ur Leukocyte Esterase Urine RBC Urine WBC Ur Squamous Epith Cells Urine Bacteria Ur Culture Indicated? Salicylates < 1.0 U Opiates 300ng/mL cut Ur Oxycodone Screen Urine Methadone Screen Acetaminophen < 10 Ur Barbiturates Screen U Tricyclic Antidepress Ur Phencyclidine Scrn Ur Amphetamines Screen U Methamphetamines Scrn Ur MDMA Scrn (Ecstasy) U Benzodiazepines Scrn Urine Cocaine Screen U Marijuana (THC) Screen Ethyl Alcohol < 10 SARS-CoV-2 (PCR) Negative 08/11/21 08/11/21 08/11/21 11:49 11:49 11:49 WBC RBC Hgb Hct MCV MCH MCHC RDW Plt Count Neut % (Auto) Lymph % (Auto) [place] % (Auto) Eos % (Auto) Baso % (Auto) Neut # (Auto) Lymph # (Auto) [place] # (Auto) Eos # (Auto) Baso # (Auto) Sodium Potassium Chloride Carbon Dioxide BUN Creatinine Estimated GFR BUN/Creatinine Ratio Glucose Lactate 0.8 Calcium Total Bilirubin AST ALT Alkaline Phosphatase Ammonia < 9 L Total Creatine Kinase CK-MB (CK-2) CK-MB (CK-2) Rel Index Troponin I Total Protein Albumin Globulin Albumin/Globulin Ratio Procalcitonin TSH 0.963 D Prolactin Serum , Qual Urine Color Urine Appearance Urine pH Ur Specific Regent Urine Protein Urine Glucose (UA) Urine Ketones Urine Occult Blood Urine Nitrate Urine Bilirubin Urine Urobilinogen Ur Leukocyte Esterase Urine RBC Urine WBC Ur Squamous Epith Cells Urine Bacteria Ur Culture Indicated? Salicylates U Opiates 300ng/mL cut Ur Oxycodone Screen Urine Methadone Screen Acetaminophen Ur Barbiturates Screen U Tricyclic Antidepress Ur Phencyclidine Scrn Ur Amphetamines Screen U Methamphetamines Scrn Ur MDMA Scrn (Ecstasy) U Benzodiazepines Scrn Urine Cocaine Screen U Marijuana (THC) Screen Ethyl Alcohol SARS-CoV-2 (PCR) 08/11/21 08/11/21 08/11/21 11:49 20:05 20:05 WBC RBC Hgb Hct MCV MCH MCHC RDW Plt Count Neut % (Auto) Lymph % (Auto) [place] % (Auto) Eos % (Auto) Baso % (Auto) Neut # (Auto) Lymph # (Auto) [place] # (Auto) Eos # (Auto) Baso # (Auto) Sodium Potassium Chloride Carbon Dioxide BUN Creatinine Estimated GFR BUN/Creatinine Ratio Glucose Lactate Calcium Total Bilirubin AST ALT Alkaline Phosphatase Ammonia Total Creatine Kinase CK-MB (CK-2) CK-MB (CK-2) Rel Index Troponin I Total Protein Albumin Globulin Albumin/Globulin Ratio Procalcitonin TSH Prolactin Serum , Qual Negative Urine Color Yellow Urine Appearance Clear Urine pH 6.5 Ur Specific [place] 1.010 Urine Protein Negative Urine Glucose (UA) Negative Urine Ketones Negative Urine Occult Blood Trace-lysed Urine Nitrate Negative Urine Bilirubin Negative Urine Urobilinogen 0.2 Ur Leukocyte Esterase 1+ H Urine RBC None seen Urine WBC 5-10/hpf H Ur Squamous Epith Cells 1-5 /hpf Urine Bacteria Few (2-10) H Ur Culture Indicated? Specimen cultured Salicylates U Opiates 300ng/mL cut Negative Ur Oxycodone Screen Negative Urine Methadone Screen Negative Acetaminophen Ur Barbiturates Screen Negative U Tricyclic Antidepress Negative Ur Phencyclidine Scrn Negative Ur Amphetamines Screen Negative U Methamphetamines Scrn Negative Ur MDMA Scrn (Ecstasy) Negative U Benzodiazepines Scrn Positive H Urine Cocaine Screen Negative U Marijuana (THC) Screen Negative Ethyl Alcohol SARS-CoV-2 (PCR) [facility] Medical History Allergy (Unknown) Anxiety (1989) Chronic back pain (Unknown) Chronic venous insufficiency Foot pain (2003) GERD (gastroesophageal reflux disease) (Unknown) Heavy menses (Unknown) IBS (irritable bowel syndrome) (1985) Neuropathy Obstructive sleep apnea (Unknown) Painful menstrual periods (Unknown) Restless leg syndrome (2014) Shoulder pain (Unknown) Vertigo (1979) Surgical History History of removal of laparoscopic gastric banding device (2014) Hx of laparoscopic gastric banding (2011) Hx of sinus surgery (2011) 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) Family History Grandmother Cancer Mental health problem Mother Age: 73 Mental health disorder Sister Age: 55 Heart disease Hypertension High cholesterol Mental health problem Asthma COPD (chronic obstructive pulmonary disease) Social History household members: spouse and family Tobacco & Substance Use Smoking Status: Current every day smoker Tobacco: How many years used: 10 second hand exposure: No alcohol intake: former substance use type: does not use Assessment & Plan Assessment & Plan narrative: 51-year-old female with a left ankle fracture. Based on the fracture this is something I would recommend surgical treatment. We will plan on surgical fixation of her ankle fracture tomorrow. Patient's CT scan also showed signs of a injury to her L3 as well as the sacrum. Patient gives history of lower back pain for a while unsure if this is associated with her fall or this is a more chronic injury. Time Spent With Patient Critical Care time: I spent a total of [] minutes of critical care time on this patient's care today; this time is exclusive of procedural time.
[2021-08-12 12:00] VITALS: BP 101/59; PULSE 66; RESP 16; TEMP 37.1; O2SAT 95
[2021-08-12] MEDS: ONDANSETRON 4 MG/2 ML INJ IV (12:51)
--- NOTE | 2021-08-12 13:08 | PT-IP ANOTE ---
reviewed EMR and pt has L trimalleolar ankle fx. Talked with Dr. Olivares for weight bearing and stated that pt will have surgery tomorrow. informed the doctor that PT will d/c current PT eval order and will await for PT order after surgery. doctor agreed.
[2021-08-12] MEDS: clonazePAM 0.5 MG TABLET PO ×2 (13:13→22:44)
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
[2021-08-12] MEDS: hydrOXYzine pamoate 25 MG CAPSULE 50 MG PO (14:13)
[2021-08-12 17:04] VITALS: O2SAT 95
[2021-08-12 19:43] VITALS: BP 108/72; PULSE 87; RESP 16; TEMP 37.2; O2SAT 96
[2021-08-12 19:45] VITALS: PULSE 87; RESP 16; O2SAT 96
--- NOTE | 2021-08-12 20:20 | PC.NURSE ---
In room assisting patient with position change. Patient overheard day nurse say they were giving morphine. Patient immediately got excited and started asking is that morphine for me? and stating wished she had morphine or Dilaudid and how great they make her feel. Patient was laughing and joking and then suddenly burst into tears stating, I'm so scared and the pain is absolutely unbearable!. After assessing pain medications available, patient was notified that she was not due for anything at the time as she was just medicated. Patient states I think I am going to need morphine or something. When staff members would enter the room patient would go from being calm and peaceful to wailing and yelling her pain was so extreme and that her current medications were not helpful. Patient cont. to ask this nurse if she could get morphine or Dilaudid because those were the only meds that worked for her and they make her feel so good. Patient cont. to state that she really like that oxycodone stuff too.
[2021-08-12 20:23] VITALS: TEMP 37.2
[2021-08-12] MEDS: risperiDONE 0.25 MG TABLET 0.5 MG PO (20:23)
[2021-08-13] VITALS (15 sets, daily range): BP systolic 86–126; BP diastolic 57–83; PULSE 75–117; RESP 13–19; TEMP 36.4–37.2; O2SAT 91–99
[2021-08-13] MEDS: KETOROLAC 30 MG/ML VIAL IV ×4 (06:04→23:16)
--- NOTE | 2021-08-13 06:52 | PC.NURSE ---
Per pt request, fluids stopped due to adequate oral intake. Provider aware and OKd. Pt informed that fluids may need to be restarted depending on surgery time, as pt is now NPO. Pt agreeable. Pt encouraged to be more independent in ADLs. Pt frequently requesting OFFICE ADMINISTRATION and RN to complete/assist in tasks that pt is fully capable of doing independently. This RN would request the patient attempt on her own in order to demonstrate pt's own competency in activity.
[2021-08-13] MEDS: ALBUTEROL 2.5 MG/3 ML NEB (ADULT) INH (07:58)
[2021-08-13] MEDS: CEFAZOLIN 2 GM/20 ML SYRINGE IV ×2 (09:38→17:08)
--- NOTE | 2021-08-13 09:50 | SUR.OPER ---
Supine on padded OR bed, head on pillow, arms secured on padded arm boards at <90 degrees abduction, legs uncrossed, safety belt at abdomen, tape over blanket over right lower leg. Left leg under control of surgeon. Bump under left hip.
[2021-08-13] MEDS: BUPIVACAINE 0.5% (PF) 30 ML, EPINEPHrine 0.15 MG INJ (09:59)
--- NOTE | 2021-08-13 11:13 | P.OP_ITS ---
Operative Date/Time/Diagnoses Date of procedure: 08/13/21 Time of procedure: 09:30 Pre-op diagnosis: Left trimalleolar ankle fracture Post-op diagnosis: same Procedure & Clinicians Procedure: Open reduction internal fixation the left medial and lateral malleolus fracture. Close reduction of the posterior malleolus fracture Same procedure as scheduled: Yes Indications: Trimalleolar ankle fracture Surgeon: Arik Carroll Web Marketing Intern: Slime Holman Anesthesia Type: General Operative Notes Findings: Displaced left ankle fracture with widening of the mortise and some displacement of the tibia on the talus. Closure Type: primary Applied: implant(s) (Distal fibular plate as well as two partially threaded 4.0 cancellous screws) Estimated Blood Loss (mL): 10 Tourniquet time (min): 68 Procedure in detail: On date of service, patient was met in the holding area where her operative site was signed and witnessed by the OR staff. Surgeries once again discussed with the patient and any remaining questions or concerns she had were answered fully. Patient was taken back to the operating theater. Placed on the operating table in a supine position. Great care was taken to ensure that all bony prominences were appropriately padded. Well-padded tourniquet was placed up along the left leg. Time-out was performed verifying patient's name, procedure, and operative site. Left leg was prepped and draped in normal sterile fashion. Esmarch was used to exsanguinate the limb and the tourniquet was turned up to 250 mm of mercury. Ten blade was used to incise through skin and fascial tissue. An incision was made starting at the tip of the distal fibula and extending proximally. Deep knife was used to continue sharp dissection down to the periosteum of the distal fibula. Periosteal tissue was dissected off the distal fibula giving us good visualization of the fracture. A curette was used to debride the fracture site removing any interposed soft tissue. Then the fracture site was copiously irrigated. Next, 2 point reduction forceps were used to reduce the fracture. C-arm was brought in to verify reduction. Once we were satisfied with the reduction combination of 2 point reduction forceps as well as crab claw was used to hold the fracture reduced. Next, distal fibular plate was placed and held provisionally. This was then secured both proximal and distal to the fracture the combination of locking and nonlocking screws. The plate and screws plus the lag screw provided strong overall fixation and stabilization of the fracture. The wound was then copiously irrigated. It was closed in layered fashion. We then turned our attention to the medial aspect. A J-shaped incision was made starting at the tip of the medial malleolus extending proximally. Fifteen blade was used to incise through skin and fascial tissue. Sharp dissection was continued with a deep knife give us good visualization the transverse fracture of the medial malleolus. Fracture site was debrided removing any inter position of tissue. This was then irrigated removing any debris and then a 2 point reduction forceps were used to reduce the medial malleolus. Guidewires were placed reduction and guidewire placement were verified on the C-arm. Next 24.0 partially-threaded cannulated screws were placed providing secure fixation of the medial malleolar fracture. Final x-rays were obtained verifying reduction of both medial and lateral malleolus as well as closed reduction of the posterior malleolus. No sign of any widening of the mortise. No sign of any send the most this injury. The wound was then closed in a layered fashion. Patient's leg was cleaned, dried, and dressed and a splint was placed. Patient was extubated and taken to the PACU in stable condition. Complications: none Post-operative Condition: stable Disposition: Acute Care Plan for aftercare: Patient will be nonweightbearing to the left lower extremity for the next 6 weeks.
[2021-08-13] MEDS: LACTATED RINGERS 1,000 ML 125 ML IV ×3 (11:23→21:19)
--- NOTE | 2021-08-13 11:31 | SUR.PHASEI ---
Block start time [1115] . Monitoring initiated and maintained throughout procedure. Oxygen and medications given per Dr Doshi anesthesiologist instructions. Patient remained stable throughout procedure, no adverse reactions noted. Block end time [1130].
--- NOTE | 2021-08-13 11:35 | SUR.PHASEI ---
Report to Dony Rudolph
[2021-08-13] MEDS: ENOXAPARIN 40 MG/0.4 ML SYRINGE SUBCUT (12:14)
--- NOTE | 2021-08-13 14:24 | PT.IIE ---
Current Diagnoses Nondisplaced trimalleolar fracture of left lower leg, initial encounter for closed fracture (08/11/21) Surgery Performed Operation Date: 08/13/21 09:00 Actual Procedures p ORIF Ankle Fracture(Left) - Arik Carroll MD Medical History (Last Reviewed 08/12/21 @ 10:47 by Arik Carroll MD) Allergy (Unknown) Anxiety (1989) Chronic back pain (Unknown) Chronic venous insufficiency Foot pain (2003) GERD (gastroesophageal reflux disease) (Unknown) Heavy menses (Unknown) IBS (irritable bowel syndrome) (1985) Neuropathy Obstructive sleep apnea (Unknown) Painful menstrual periods (Unknown) Restless leg syndrome (2014) Shoulder pain (Unknown) Vertigo (1979) Physical Therapy Inpatient Evaluation/Re-Eval M1 PT/OT-IP Prior Functional Status Start: 08/13/21 13:19 Freq: NEEDED Status: Active Protocol: Document 08/13/21 14:24 AW (Rec: 08/13/21 15:21 AW [id number]) Medical Review Prior Functional Status Medical History Reviewed Yes Communication Pt is able to make her needs known Mobility and Gait Pt states she is modified indepednent with use of FWW or SPC for mobility. She has a youth-sized FWW acquired during a previous admit in March 2021 when she had a L TKA and subsequent revision. Pt had multiple falls in the past week and now has left trimalleolar ankle fracture s/ p ORIF. Activities of Daily Living and IADL's Independent Social History Household Members spouse,family Living Arrangements House Number of Floors (Floors) Two Floors Number of Stairs To Enter/Railing? 5 [place] with left rail ascending Home Environment Standard Height Toilet,Tub/ Shower Home Equipment Front Wheel Walker,Straight Cane,Bedside Commode,Tub Transfer Bench,Hand Held Shower Additional Social History Comment Pt has her spouse and mother at home to assist her. M2 PT-IP Current Condition Start: 08/13/21 13:19 Freq: NEEDED Status: Active Protocol: Document 08/13/21 14:24 AW (Rec: 08/13/21 15:21 AW [id number]) Physical Therapy Current Condition Current Condition Evaluation Date 08/13/21 Treatment Diagnosis L trimalleolar ankle fx s/p ORIF; difficulty in walking Onset Date 08/11/21 M3 PT-IP Subjective Start: 08/13/21 13:19 Freq: NEEDED Status: Active Protocol: Document 08/13/21 14:24 AW (Rec: 08/13/21 15:21 AW [id number]) Subjective Physical Therapy Visit Type Type Initial Evaluation Visit Start Time 14:01 Visit Stop Time 14:24 Total Visit Minutes 23 Physical Therapy Visit Comments Patient Comments Pt is willing to participate with PT Patient Goals Return home with family support Therapy Pain Assessment Pain When Pain Assessed During Mobility Pain Present Pain Present Pain Reported Location left ankle Scale Used not quantified Pain Management Techniques Elevation,Re-positioning, Timing of Activity with Medications M4 PT-IP Mobility and Gait Start: 08/13/21 13:19 Freq: NEEDED Status: Active Protocol: Document 08/13/21 14:24 AW (Rec: 08/13/21 15:34 AW [id number]) PT-Transfer Assessment Sit to and From Stand Sit to and from Stand Contact Guard Assistance,1 Person Assistance,Use of Upper Extremities Equipment Transfer Assistive Device Gait Belt,Front Wheeled Walker Orthotic/Prosthetic Devices or Brace: No Transfers Transfer Destination Chair,Bedside Commode Transfer Technique pt ambulated with FWW Transfer Ability Level of Assist Contact Guard Assistance,Use of Upper Extremities Comments Mobility Comments Pt was sitting on the BSC as PT arrived. She complained of minimal pain. PT educated pt on NWB LLE and techniques for mobility with FWW. PT left the room to find youth-sized walker and returned to find pt sitting EOB with PACKER FUSER in the room. Per nursing report, she had transferred with LLE off the floor using FWW. Pt stood from the bed and used FWW to ambulate 10 feet NWB LLE CGA. Left pt in the chair with call light and tray table in reach . Pt agreed to call nursing for all mobility needs. Gait Assessment Gait Gait Assistance Required: Contact Guard Assist Distance (Feet) 10 Able to Maintain Weight Bearing Status Yes During Gait Assistive Devices Assistive Device Gait Belt,Front Wheeled Walker Orthotic/Prosthetic Devices or Brace: No Gait Deviations General Gait Pattern Antalgic,Step-to Gait Factors Limiting Gait Function Factors Limiting Gait Function Limited Range of Motion,Pain Comments Gait Comments Pt was able to maintain NWB LLE during 10 feet ambulation with FWW. Stair Climbing Assessment Comments Stair Climbing Comments Not assessed. Pt states she must use stairs with left rail ascending to enter her home and that she is likely to enter by seated bump. PT-Balance Assessment Sitting Balance and Reactions Static Sitting Balance Ability Normal Dynamic Sitting Balance Ability Normal Standing Balance and Reactions Static Standing Balance Ability Good Dynamic Standing Balance Ability Fair Device Used FWW M5 PT-IP Objective Assessments Start: 08/13/21 13:19 Freq: NEEDED Status: Active Protocol: Document 08/13/21 14:24 AW (Rec: 08/13/21 15:34 AW [id number]) Orientation Orientation/Cognition Level of Alertness Alert Orientation Name,Day of Week,Place, Situation Language Function Ability No Deficits Noted Safety Awareness Understands Safety Issues Gross Range of Motion Lower Extremity ROM Assessment Left Impaired Strength Lower Extremity Strength Assessment Left Impaired Hip 4-/5 Knee 3+/5 Sensation Assessment Sensation Gross Sensation WNL M6 PT-IP Treatment Start: 08/13/21 13:19 Freq: NEEDED Status: Active Protocol: Document 08/13/21 14:24 AW (Rec: 08/13/21 15:34 AW [id number]) Physical Therapy Treatment Education Education Provided Safety Other Treatments Other Treatment Performed Educated pt extensively on rationale for NWB LLE and techniques for maintaining. M7 PT-IP Assessment and Plan Start: 08/13/21 13:19 Freq: NEEDED Status: Active Protocol: Document 08/13/21 14:24 AW (Rec: 08/13/21 15:34 AW [id number]) PT Summary Assessment and Plan Potential Rehabilitation Potential Good Status of Condition at Evaluation Evolving Summary Impairments Pain,ROM,Strength,Balance,Bed Mobility,Transfers,Gait Assessment Summary Rebekah is a 51 yo woman with complex recent orthopedic history involving left TKA and revision. She was PWB 100# when she discharged with home health in March. She returns after multiple falls resulting in trimalleolar left ankle fracture and is now s/p ORIF. She is to be NWB LLE for 6 weeks. On assessment, pt was able to stand, transfer, and ambulate 10 feet with FWW while maintaining weightbearing status. She may benefit from a knee scooter if able to procure one. PT recommends pt will be safe at home with assist and home health PT to progress her strength and mobility independence. Goals Bed Mobility Goal Independent Transfer Goal Standby Assistance,Front Wheeled Walker Gait Goal Standby Assistance,Front Wheel Walker Gait Distance 25 Other Goals - up/down 5 steps with L rail ascending +SPC while NWB LLE Days to Meet Goals 5 Frequency of Treatment Frequency Of Treatment Twice a Day Treatment Plan Physical Therapy Treatment Plan Bed Mobility Training,Transfer Training,Gait Training, Therapeutic Exercise,Balance Retraining,Post Op Education, Discharge Planning,Hot or Cold Pack Other Recommendations and Next Treatment assess safety with knee Focus scooter; stair training (may need to coordinate caregiver training) Precautions Other Precautions falls Weight Bearing Status Weight Bearing Status Non-Weight Bearing Allowed Weight Bearing Amount (enter % NWB LLE or #) (%) Recommendations To Nursing Amount of Assist Needed 1 Person Assist Discharge Recommendations PT Discharge Recommendations Home with Assistance,Home Health Transportation Needs at Discharge Private Vehicle
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
[2021-08-13] MEDS: GABAPENTIN 300 MG CAPSULE PO ×2 (16:00→21:12)
--- NOTE | 2021-08-13 16:48 | PC.NURSE ---
Patient returns from surg. CMS intact, reports pain is manageable. Desires to eat lunch and call mother to visit. PT in to work with patient, pivot trans. to BSC, non weight bearing. Patient ambulates well with Fww.
[2021-08-13] MEDS: PROPRANOLOL 10 MG TABLET 20 MG PO (21:12)
[2021-08-13] MEDS: hydrOXYzine pamoate 25 MG CAPSULE 50 MG PO (21:12)
[2021-08-13] MEDS: clonazePAM 0.5 MG TABLET PO (21:12)
[2021-08-13] MEDS: HYDROCODONE/ACET 5/325 TABLET 2 TAB PO (21:12)
[2021-08-13] MEDS: risperiDONE 0.25 MG TABLET 0.5 MG PO (21:13)
[2021-08-13] MEDS: ESCITALOPRAM 10 MG TABLET 20 MG PO (21:13)
[2021-08-13] MEDS: HYDROMORPHONE 0.5 MG INJ 0.2 MG IV (23:16)
[2021-08-14] MEDS: CEFAZOLIN 2 GM/20 ML SYRINGE IV (01:29)
[2021-08-14] MEDS: KETOROLAC 30 MG/ML VIAL IV ×2 (04:58→11:32)
[2021-08-14] MEDS: LACTATED RINGERS 1,000 ML 125 ML IV (05:01)
[2021-08-14 05:43] VITALS: BP 125/76; PULSE 84; RESP 18; TEMP 37.3; O2SAT 96
[2021-08-14] MEDS: BACLOFEN 10 MG TABLET 20 MG PO (06:21)
[2021-08-14 06:29] LABS: Hematocrit 24.3 % (36-46); Hemoglobin 8.1 g/dL (12.0-16.0); Mean Corpuscular HGB Conc 33.3 % (30-36); Mean Corpuscular Hemoglobin 28.9 PG (26-34); Mean Corpuscular Volume 86.7 fL (80-100); Platelet Count 346 X10^3/uL (150-400); White Blood Cell Count 7.2 X10^3/uL (4.5-11.0)
[2021-08-14 06:38] LABS: BUN Creatinine Ratio 16.7 (6-22); Blood Urea Nitrogen 8 mg/dL (7-17); Calcium 8.8 mg/dL (8.4-10.2); Carbon Dioxide 27 mmol/L (22-32); Chloride 108 mmol/L (98-107); Estimated Glomerular Filt Rate > 60.0 mL/min (>60); Glucose 78 mg/dL (70-100); HEMOLYSIS < 15 (0-50); Potassium 3.2 mmol/L (3.4-5.1); Sodium 136 mmol/L (137-145)
[2021-08-14 07:22] VITALS: RESP 18; O2SAT 98
--- NOTE | 2021-08-14 07:30 | PC.NURSE ---
NOC: pod 1, recovering well. pain well controlled w/ IV dilauded x 1, baclofen x 1. NWB, stand pivot transfer to BSC 1pa. ice packs to LLE splint. encouraged elevation. NS @ 200/hour. scabs to hand are healing. mom is on list for visitor. per reports is not on list to visit. bed alarm on, call light w/in reach. a/o, has been cooperative, pleasant and zero confusion noted this shift. was crying out for pain meds at begin of shift, but after medication she was appropriate and patient. report to [facility] RN's for day shift.
--- NOTE | 2021-08-14 07:52 | CM.DPC ---
Addendum entered by Michelle Montemayor R.N. 08/14/21 11:02: Found out from [facility]mission Change [facility] that she needs to reapply for Medicaid. She will get a annabel application from them. Will not be able to order home health for her. Hospitalist is planning on discharging her home today. Original Note: DCP Cont: Sent an email to the admitting change group to verify that patient has [facility]. This will be necessary to know if patient will have home health, she has already stated that she would not go to longterm facility. She will be working with [facility] has seen her regarding resources for home situation with spouse. P: DCP to continue to follow, and will see about insurance and if home health would be an option. Michelle Montemayor RN/Mortgage Loan Reviewer
[2021-08-14] MEDS: GABAPENTIN 300 MG CAPSULE PO (09:04)
[2021-08-14] MEDS: HYDROCODONE/ACET 5/325 TABLET 2 TAB PO (09:04)
[2021-08-14] MEDS: ENOXAPARIN 40 MG/0.4 ML SYRINGE SUBCUT (09:04)
[2021-08-14] MEDS: PROPRANOLOL 10 MG TABLET 20 MG PO (09:04)
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
--- NOTE | 2021-08-14 10:18 | PT.IPTN ---
Current Diagnoses Nondisplaced trimalleolar fracture of left lower leg, initial encounter for closed fracture (08/11/21) Surgery Performed Operation Date: 08/13/21 09:00 Actual Procedures p ORIF Ankle Fracture(Left) - Arik Carroll MD Physical Therapy Treatment Note M2 PT-IP Current Condition Start: 08/13/21 13:19 Freq: NEEDED Status: Active Protocol: Document 08/13/21 14:24 AW (Rec: 08/13/21 15:21 AW [id number]) Physical Therapy Current Condition Current Condition Evaluation Date 08/13/21 Treatment Diagnosis L trimalleolar ankle fx s/p ORIF; difficulty in walking Onset Date 08/11/21 M3 PT-IP Subjective Start: 08/13/21 13:19 Freq: NEEDED Status: Active Protocol: Document 08/14/21 10:18 AW (Rec: 08/14/21 11:23 AW [id number]) Subjective Physical Therapy Visit Type Type Treatment Note Visit Start Time 09:47 Visit Stop Time 10:18 Total Visit Minutes 31 Physical Therapy Visit Comments Patient Comments Pt is willing to participate with PT Patient Goals Pt planning to go home today. Therapy Pain Assessment Pain When Pain Assessed During Mobility Pain Present Pain Present Pain Reported Location left ankle Scale Used Numeric (0 - 10) Pain Management Techniques Elevation,Re-positioning, Timing of Activity with Medications M4 PT-IP Mobility and Gait Start: 08/13/21 13:19 Freq: NEEDED Status: Active Protocol: Document 08/14/21 10:18 AW (Rec: 08/14/21 11:23 AW [id number]) PT-Transfer Assessment Sit to and From Stand Sit to and from Stand Standby Assistance,Use of Upper Extremities Equipment Transfer Assistive Device Gait Belt,Front Wheeled Walker Orthotic/Prosthetic Devices or Brace: No Transfers Transfer Destination Bed,Chair,Wheelchair Transfer Technique Stand Step Pivot Transfer Ability Level of Assist Standby Assistance,Use of Upper Extremities Comments Mobility Comments Pt was lying in bed as PT arrived. She sat up EOB SBA and stood with cues to push from the bed SBA. She used FWW to steady herself and then transferred to a knee scooter. Pt attempted strides with the knee scooter but PT decided to readjust for shorter height . Pt used FWW to transfer to the chair SBA and was able to maintain NWB LLE at all times. She stood from the chair with cues to push from the chair arms. She used the FWW to transfer to the knee scooter. With CGA initially, she propelled with RLE slowly but with good balance. She traveled 100 feet with knee scooter SBA before fatiguing and transferring to a wheelchair with FWW SBA. She was escorted back to her room. She transferred w/c > chair with FWW SBA and then decided she would rather be in bed. She transferred to the bed with FWW SBA and was able to reposition herself. Gait Assessment Gait Gait Assistance Required: Standby Assistance,Contact Guard Assist Distance (Feet) 100 Able to Maintain Weight Bearing Status Yes During Gait Comments Gait Comments Pt demonstrated transfers up to 10 feet with FWW SBA while maintaining NWB LLE. She also used the knee scooter for a total of 100 feet, transferring to and from with FWW SBA and demonstrating good safety awareness. Stair Climbing Assessment Comments Stair Climbing Comments Pt refuses stair training and tells PT she will enter by sitting and lifting herself up the stairs at home with her spouse to assist her up to her feet at the top of the stairs . Educated pt on possible use of left rail and R cane with assist but pt refused training . PT-Balance Assessment Sitting Balance and Reactions Static Sitting Balance Ability Normal Dynamic Sitting Balance Ability Normal Standing Balance and Reactions Static Standing Balance Ability Good Dynamic Standing Balance Ability Fair Device Used FWW, knee scooter M5 PT-IP Objective Assessments Start: 08/13/21 13:19 Freq: NEEDED Status: Active Protocol: Document 08/13/21 14:24 AW (Rec: 08/13/21 15:34 AW [id number]) Orientation Orientation/Cognition Level of Alertness Alert Orientation Name,Day of Week,Place, Situation Language Function Ability No Deficits Noted Safety Awareness Understands Safety Issues Gross Range of Motion Lower Extremity ROM Assessment Left Impaired Strength Lower Extremity Strength Assessment Left Impaired Hip 4-/5 Knee 3+/5 Sensation Assessment Sensation Gross Sensation WNL M6 PT-IP Treatment Start: 08/13/21 13:19 Freq: NEEDED Status: Active Protocol: Document 08/14/21 10:18 AW (Rec: 08/14/21 11:23 AW [id number]) Physical Therapy Treatment Education Education Provided Weight Bearing Status,Safety Other Treatments Other Treatment Performed Educated pt on recommendation for FWW at home and possible use of knee scooter outside the home. If pt is able to obtain a knee scooter, PT recommends youth size for best fit. Educated pt to place chairs strategically for seated rest breaks during all mobility at home. M7 PT-IP Assessment and Plan Start: 08/13/21 13:19 Freq: NEEDED Status: Active Protocol: Document 08/14/21 10:18 AW (Rec: 08/14/21 11:23 AW [id number]) PT Summary Assessment and Plan Potential Rehabilitation Potential Good Status of Condition at Evaluation Evolving Summary Impairments Pain,ROM,Strength,Balance,Bed Mobility,Transfers,Gait Progress Towards Goals Progressing Toward Goals Assessment Summary Rebekah was able to transfer with FWW SBA while maintaining NWB LLE today. She was able to use a knee scooter for 100 feet with good balance and safety awareness. She states she has a BSC at home already and is hoping to obtain a knee scooter from [facility] tomorrow. She refuses stair training and states she will enter her house with seated bump and assist from her spouse. Pt will be safe to discharge home with assist once medically stable. She will need HH PT to address safety in the home and to progress her strength and mobility independence. Goals Bed Mobility Goal Independent Transfer Goal Standby Assistance,Front Wheeled Walker Gait Goal Standby Assistance,Front Wheel Walker Gait Distance 25 Other Goals - up/down 5 steps with L rail ascending +SPC while NWB LLE Days to Meet Goals 5 Frequency of Treatment Frequency Of Treatment Twice a Day Treatment Plan Physical Therapy Treatment Plan Bed Mobility Training,Transfer Training,Gait Training, Therapeutic Exercise,Balance Retraining,Post Op Education, Discharge Planning,Hot or Cold Pack Other Recommendations and Next Treatment stairs if pt agrees Focus Precautions Other Precautions falls Weight Bearing Status Weight Bearing Status Non-Weight Bearing Allowed Weight Bearing Amount (enter % NWB LLE or #) (%) Recommendations To Nursing Amount of Assist Needed 1 Person Assist Discharge Recommendations PT Discharge Recommendations Home with Assistance,Home Health Transportation Needs at Discharge Private Vehicle
[2021-08-14] MEDS: POTASSIUM CHLORIDE 20 MEQ TAB 40 MEQ PO (11:32)
--- NOTE | 2021-08-14 12:24 | PC.NURSE ---
Patient eager for discharge this morning, worked with PT and states she is ready to go home with her mom and her for help. Patient also reports she will be picking up some equipment from [employer] tomorrow to borrow, as well as be having home health services arranged. Patient without complaint. Bulky soft cast/splint in place to left foot and remains intact. Float RN able to reviewed all discharge instructions and home care handouts with patient, she states understanding and has no further questions or concerns at this time. Escorted out via wheelchair with all her belongings by [employer].
== END 2021-08-14 12:15 | disposition home or self-care (01) | DRG 493 ==
LOC: ED 14:36 → AC 14:48
PROVIDERS: Internal Medicine; Orthopaedic Surgery; Admitting Provider Internal Medicine; Emergency Provider Emergency Medicine; Family Provider Family Medicine; PCP Family Medicine; Referring Provider Emergency Medicine; Visit Provider Internal Medicine
PROC: 0QSK04Z Reposition Left Fibula with Internal Fixation Device, Open Approach (ICD-10-PCS; principal; 2021-08-13 09:00)
DX: S82.852A Displaced trimalleolar fracture of left lower leg, initial encounter for closed fracture (principal); S32.10XA Unspecified fracture of sacrum, initial encounter for closed fracture; S32.030A Wedge compression fracture of third lumbar vertebra, initial encounter for closed fracture; F10.20 Alcohol dependence, uncomplicated; F41.1 Generalized anxiety disorder; F41.0 Panic disorder [episodic paroxysmal anxiety]; F17.210 Nicotine dependence, cigarettes, uncomplicated; R41.82 Altered mental status, unspecified; W01.0XXA Fall on same level from slipping, tripping and stumbling without subsequent striking against object, initial encounter; Y90.0 Blood alcohol level of less than 20 mg/100 ml; Z20.822 Contact with and (suspected) exposure to COVID-19
CPT/HCPCS: 36415; 70450; 71045; 71260; 72125; 72170; 73560; 73610; 73700; 74177; 80048; 80053; 80305; 80320; 80329; 81001; 82140; 82550; 83605; 84145; 84146; 84443; 84484; 84703; 85025; 85027; 87040; 87086; 87635; 93005; 94640; 94760; 97116; 97162; 97530; 97535; 99284; 99285; C9803; C1713; G0480; J0171; J0690; J1100; J1170; J1650; J1885; J2250; J2405; J2704; J3010; J7613

== ENCOUNTER → 2021-08-22 10:52 | Outpatient (CLI) | payer OTHER, MEDICAID, SELFPAY ==
[2021-08-11 18:03] VITALS: BMI 27.3
--- NOTE | 2021-08-22 10:55 | DI.RAD.S_ITS ---
PROCEDURE: XR KNEE LT 1TO2V INDICATIONS: fall on left knee TECHNIQUE: 2 views of the knee were acquired. COMPARISON: [facility], CR, XR KNEE LT 1TO2V, 03/31/2021, 16:54. [facility], CR, XR KNEE 4+ VIEWS LEFT, 06/14/2021, 16:08. [facility], CT, CT LE LT WO CON, 08/11/2021, 13:01. [facility], CR, XR KNEE LT 1TO2V, 08/11/2021, 11:45. FINDINGS: Bones: No acute fractures or dislocations. A left total knee prosthesis is redemonstrated with long-stem femoral and tibial components. Alignment appears preserved. There are lucencies along the cemento-osseous interface of the tibial component which appears similar to the prior study of 06/14/2021. No suspicious bony lesions. Soft tissues: There is a small joint effusion. No suspicious soft tissue calcifications. IMPRESSION: 1. No fracture or dislocation. 2. Lucencies along the cemento-osseous interface along the tibial component redemonstrated. Loosening or infection cannot be excluded and correlation is recommended clinically. 3. Small joint effusion. Dictated by: Leroy Burgess M.D. on 08/22/2021 at 11:50 Approved by: Leroy Burgess M.D. on 08/22/2021 at 11:54
== END ==
PROVIDERS: Family Provider Family Medicine; PCP Family Medicine; Referring Provider Nurse Practitioner Family; Visit Provider Nurse Practitioner Family
DX: M25.562 Pain in left knee (principal); M25.462 Effusion, left knee; Z96.652 Presence of left artificial knee joint
CPT/HCPCS: 73560

== ENCOUNTER → 2021-11-08 18:54 | Outpatient (CLI) | payer OTHER, MEDICAID, SELFPAY ==
[2021-08-11 18:03] VITALS: BMI 27.3
--- NOTE | 2021-11-08 18:57 | DI.MRI.S_ITS ---
PROCEDURE: MR LUMBAR SPINE WO CON INDICATIONS: LUMBAGO WITH SCIATICA, LEFT SIDE/PARESTHESIA TECHNIQUE: Noncontrast sagittal T1 spin echo and T2 fast echo, sagittal STIR, and T2 fast spin echo through the lumbar spine. In cases with scoliosis, additional coronal T2 fast spin echo may be performed. COMPARISON: None. FINDINGS: Image quality: Excellent. Alignment and Curvature: Mild levoconvex scoliotic curvature is noted. No focal AP alignment abnormality is seen. Bone Marrow: Marrow is of normal overall signal. The known fractures L3 and S2 are again seen, with low T1 weighted signal and mildly increased STIR signal. Spinal Cord: Conus medullaris terminates at the L1 level. Visualized cord demonstrates normal signal and size. Paraspinous Soft Tissues: No paravertebral masses. T12-L1: Normal appearance. L1-L2: Normal appearance. L2-L3: Mild facet joint hypertrophy is seen. Moderate bilateral neural foraminal narrowing is seen. Moderate central canal narrowing is seen. The degree of central canal narrowing is exacerbated by prominent epidural fat posteriorly, as on series 6, image 18. L3-L4: The disc height and disk signal are relatively well-preserved. Mild generalized disc bulge is seen. There is a superimposed central disc protrusion. Mild to moderate facet hypertrophy can be seen. There is moderate right-sided and [id number] left-sided neural foraminal narrowing. Mild central canal narrowing is seen. L4-L5: Moderate loss of disc height is seen. Loss of disc signal is seen. Moderate disc bulge is seen. There is a mild central disc protrusion. Moderate facet joint hypertrophy is seen. There is moderate bilateral neural foraminal narrowing seen, left worse than right. Mild to moderate central narrowing is seen. L5-S1: The disc height is well-preserved. Loss of disc signal is seen at this level. Moderate generalized disc bulge is seen. Moderate facet joint hypertrophy is seen. There is moderate to severe bilateral neural foraminal narrowing seen, with an associated a degree of compression seen upon the exiting nerve roots. Mild to moderate central canal narrowing can be seen. IMPRESSION: Multiple levels of lumbar spine degenerative change are seen, which are overall worst at L5-S1. Known, subacute fractures can be seen at L3 and S2. Mild levoconvex scoliotic curvature is noted. Dictated by: Ld Jimenez M.D. on 11/09/2021 at 13:23 Approved by: Ld Jimenez M.D. on 11/09/2021 at 13:27
== END ==
PROVIDERS: Family Provider Family Medicine; PCP Family Medicine; Referring Provider Family Medicine; Visit Provider Family Medicine
DX: M47.816 Spondylosis without myelopathy or radiculopathy, lumbar region (principal); M47.817 Spondylosis without myelopathy or radiculopathy, lumbosacral region; M54.42 Lumbago with sciatica, left side; R20.2 Paresthesia of skin; M41.9 Scoliosis, unspecified; S32.039A Unspecified fracture of third lumbar vertebra, initial encounter for closed fracture; S32.10XA Unspecified fracture of sacrum, initial encounter for closed fracture
CPT/HCPCS: 72148

== ENCOUNTER 2021-12-02 15:19 | Inpatient (IN) | payer OTHER, MEDICAID, SELFPAY ==
[2021-08-11 18:03] VITALS: BMI 27.3
[2021-12-02] VITALS (70 sets, daily range): BP systolic 91–149; BP diastolic 53–91; PULSE 79–136; RESP 14–35; TEMP 37–39.4; O2SAT 74–100; BMI 26.9
--- NOTE | 2021-12-02 15:33 | DI.CT.S_ITS ---
PROCEDURE: CT HEAD/BRAIN WO CON INDICATIONS: altered, low O2 sats TECHNIQUE: Noncontrast 4.5 mm thick angled axial sections acquired from the foramen magnum to the vertex, with coronal and sagittal reformats. For radiation dose reduction, the following was used: automated exposure control, adjustment of mA and/or kV according to patient size. COMPARISON: [facility], CT, CT HEAD/BRAIN WO CON, 08/11/2021, 12:47. FINDINGS: Image quality: Excellent. CSF spaces: Basal cisterns are patent. No extra-axial fluid collections. Ventricles are normal in size and shape. Brain: No midline shift. No intracranial masses or hemorrhage. Deshpande-white matter interface is normal. Skull and face: Calvarium and visualized facial bones are intact, without suspicious lesions. Sinuses: Visualized sinuses and mastoids are clear. IMPRESSION: No acute intracranial abnormality. Dictated by: Simone Mcdowell M.D. on 12/02/2021 at 16:05 Approved by: Simone Mcdwoell M.D. on 12/02/2021 at 16:07
--- NOTE | 2021-12-02 15:33 | DI.RAD.S_ITS ---
PROCEDURE: XR CHEST 1V INDICATIONS: altered, low O2 sats TECHNIQUE: One view of the chest was acquired. COMPARISON: [facility], CR, XR CHEST 1V, 08/11/2021, 11:45. FINDINGS: Surgical changes and devices: None. Lungs and pleura: Right lower lobe infiltrate consistent with right lower lobe pneumonia. Mediastinum: Mediastinal contours appear normal. Heart size is enlarged. Bones and chest wall: No suspicious bony lesions. Overlying soft tissues appear unremarkable. IMPRESSION: Right lower lobe pneumonia. Dictated by: Simone Mcdowell M.D. on 12/02/2021 at 15:26 Approved by: Simone Mcdowell M.D. on 12/02/2021 at 15:27
--- NOTE | 2021-12-02 15:33 | ED.AMS ---
HPI - Altered Mental Status General Chief Complaint: Altered Mental Status Stated Complaint: AMS Time Seen by Provider: 12/02/21 15:26 Source: EMS and old records reviewed Mode of arrival: EMS Limitations: altered mental status History of Present Illness HPI narrative: This is a 51-year-old female history anxiety, major depressive disorder, alcohol dependence, obstructive sleep apnea, GERD and back pain who comes for hypoxia and altered mental status in the field. Patient was 70% on room air. Patient responds to verbal stimuli she answers some questions but not all. She denies chest pain. She indicates that she is had some trouble breathing for the last day. After patient received Narcan she is able to give me a more complete history states she started having difficulty breathing in the last 24 hours. She denies fevers she denies headache or neck pain. She denies any chest pain but does feel little short of breath. She is had some cough. She denies any vomiting. No abdominal, back or flank pain. She denies any dysuria, urgency or frequency. Denies any black or bloody stools or diarrheal stools. Patient denies any vaginal bleeding or discharge. She denies any use of narcotics although we stated that she was positive on her opiate screen. She states no alcohol use recently she is a history of alcohol abuse but her and her both states she does not use and they have both been sober. She does use tobacco she is had some breathing issues and states she uses inhalers intermittently. She denies history of alcohol withdrawal in the past. Patient's notes that he did have some poppy ontiveros behind the house which he made into a tea and gave his for its narcotic properties. He states last dose was around midnight. Unsure if she had any additional. He does not believe she is had any oral narcotics or prescription narcotics recently but is unsure if she may or may not have had any additional of her own. Related Data Home Medications Medication Instructions Recorded Confirmed risperidone 0.5 mg tablet 0.5 mg PO QPM 08/13/21 12/03/21 cephalexin 500 mg capsule 500 mg PO BID ankle 12/03/21 12/03/21 Previous Rx's Medication Instructions Recorded albuterol sulfate 90 mcg/actuation 2 puff inhalation Q4H PRN 12/30/17 breath activated powder inhaler shortness of breath or wheezing #1 ea propranolol 20 mg tablet 20 mg PO BID #180 tabs 07/27/21 baclofen 20 mg tablet 20 mg PO TID PRN Muscle Spasm 7 08/14/21 days #20 tabs gabapentin 300 mg capsule 300 mg PO TID #90 caps 08/14/21 mupirocin 2 % topical ointment 1 applic topical TID #15 grams 08/22/21 escitalopram oxalate 20 mg tablet 20 mg PO DAILY #90 tabs 11/01/21 hydroxyzine HCl 50 mg tablet 50 mg PO BID PRN anxiety #60 tabs 11/01/21 clonazepam 0.5 mg tablet 0.5 mg PO BID PRN Anxiety #60 tabs 11/06/21 ondansetron HCl 8 mg tablet 8 mg PO BID-TID PRN nausea and 11/29/21 vomiting #90 tabs azithromycin 250 mg tablet 250 mg PO DAILY 4 days #4 tabs 12/03/21 Allergies Allergy/AdvReac Type Severity Reaction Status Date / Time No Known Drug Allergies Allergy Verified 08/22/21 08:57 Review of Systems Review of Systems ROS Unobtainable: All systems reviewed & are unremarkable except as noted in HPI and below (able to obtain after narcan.) Patient History Medical History Allergy (Unknown) Anxiety (1989) Chronic back pain (Unknown) Chronic venous insufficiency Foot pain (2003) GERD (gastroesophageal reflux disease) (Unknown) Heavy menses (Unknown) IBS (irritable bowel syndrome) (1985) Neuropathy Obstructive sleep apnea (Unknown) Painful menstrual periods (Unknown) Restless leg syndrome (2014) Shoulder pain (Unknown) Vertigo (1979) Surgical History History of removal of laparoscopic gastric banding device (2014) Hx of laparoscopic gastric banding (2011) Hx of sinus surgery (2011) 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) Family History Grandmother Cancer Mental health problem Mother Age: 73 Mental health disorder Sister Age: 55 Heart disease Hypertension High cholesterol Mental health problem Asthma COPD (chronic obstructive pulmonary disease) Social History household members: spouse and family Smoking Status: Current every day smoker Tobacco: How many years used: 10 second hand exposure: No alcohol intake: former substance use type: does not use Smoking Status: Current every day smoker tobacco type: cigarettes alcohol intake frequency: 3 or more drinks per day Substance Use Type: does not use Exam Narrative Exam Narrative: GEN: Female alert, patient appears sleepy but responds to verbal stimuli. She does answer some questions. She does look around the room at times but then appears to fall asleep., patient appears to be in moderate distress. HEENT: Atraumatic, pupils are pinpoint, extraocular movements are intact, nares are clear, TMs are clear with no fluid, there is no conjunctival pallor. Throat is clear without any exudates, erythema, tonsillar enlargement or uvular deviation HEART: Regular rate and rhythm without murmur, clicks, rubs. Pulses are equal in upper and lower extremities LUNGS:Lungs decreased bilaterally, no wheezes, rales, crackles, chest moves symmetrically ABD:bowel sounds normal, soft, non-tender, no guarding, rebound, rigidity, no masses noted, no hepatosplenomegaly :No CVA tenderness Patient re-examined after Narcan. She is alert, appropriate able to converse appropriately throughout the exam. Pupils are no longer pinpoint. Negative Kernig's and Brudzinski. Patient is able to move all her extremities without issue no lateralizing or localized deficits. MSCL: Non-tender, no muscle atrophy, muscles strength 5/5 upper and lower extremities, full range of motion NEURO:CN 2-12 intact, sensation normal Initial Vital Signs Initial Vital Signs: Vital Signs Pulse Rate 119 H 12/02/21 15:27 Respiratory Rate 25 H 12/02/21 15:27 Blood Pressure 102/65 12/02/21 15:27 Pulse Oximetry 81 L 12/02/21 15:27 Oxygen Delivery Method 12/02/21 15:27 Scores GCS Lana coma scale eye opening: Spontaneous [place] coma scale verbal response: Confused Lana coma scale motor response: Localising Lana coma scale total score: 13 Course Orders Ordered: Discontinued Medications Acetaminophen (Acetaminophen 650 Mg Supp) 650 mg AR NOW ONE Stop: 12/02/21 16:35 Last Admin: 12/02/21 16:54 Dose: 650 mg Documented By: ISIS Acetaminophen (Acetaminophen 325 Mg Tablet) 650 mg PO Q6HR PRN PRN Reason: Fever/Mild Pain (1-3) Last Admin: 12/03/21 02:45 Dose: 650 mg Documented By: LISSETH Albuterol (Albuterol 2.5 Mg/3 Ml Neb (Adult)) 2.5 mg INH [id number] PRN PRN Reason: Shortness Of Breath Albuterol/Ipratropium (Albuterol/Ipratropium 3 Ml Ampul) 3 ml INH NOW ONE Stop: 12/02/21 15:36 Last Admin: 12/02/21 16:17 Dose: 3 ml Documented By: SARBJIT Albuterol/Ipratropium (Albuterol/Ipratropium 3 Ml Ampul) 3 ml INH RTQ4HR PRN PRN Reason: Shortness Of Breath Enoxaparin Sodium (Enoxaparin 40 Mg/0.4 Ml Syringe) 40 mg SUBCUT DAILY [facility] Enoxaparin Sodium (Enoxaparin 40 Mg/0.4 Ml Syringe) 40 mg SUBCUT DAILY [facility] Last Admin: 12/03/21 09:33 Dose: Not Given Documented By: TOO Folic Acid (Folic Acid 1 Mg Tablet) 1 mg PO DAILY [facility] Last Admin: 12/03/21 09:23 Dose: 1 mg Documented By: TOO Furosemide (Furosemide 20 Mg/2 Ml Vial) 20 mg IV BID [facility] Last Admin: 12/03/21 09:33 Dose: Not Given Documented By: Admin: 12/02/21 21:24 Dose: 20 mg Documented By: LISSETH Sodium Chloride (Normal Saline 0.9%) 1,000 mls @ 1,000 mls/hr IV BOLUS ONE Stop: 12/02/21 16:36 Last Infusion: 12/02/21 18:32 Dose: 1,000 mls/hr Documented By: Admin: 12/02/21 15:45 Dose: 1,000 mls/hr Documented By: MARY Sodium Chloride (Normal Saline 0.9%) 1,000 mls @ 1,000 mls/hr IV BOLUS ONE Stop: 12/02/21 16:36 Last Infusion: 12/02/21 17:12 Dose: 1,000 mls/hr Documented By: Admin: 12/02/21 15:47 Dose: 1,000 mls/hr Documented By: MARY Ceftriaxone Sodium 2,000 mg/ (Sodium Chloride) 100 mls @ 200 mls/hr IV NOW ONE Stop: 12/02/21 17:32 Last Infusion: 12/02/21 19:09 Dose: 200 mls/hr Documented By: Admin: 12/02/21 18:23 Dose: 200 mls/hr Documented By: ISIS Vancomycin HCl (Vancomycin) 1,250 mg in 250 mls @ 250 mls/hr IV NOW ONE Stop: 12/02/21 18:31 Last Infusion: 12/02/21 19:54 Dose: 250 mls/hr Documented By: Admin: 12/02/21 18:50 Dose: 250 mls/hr Documented By: ISIS Naloxone HCl 2 mg/ Sodium (Chloride) 500 mls @ 62.5 mls/hr IV TITRATE [facility]IMI Last Infusion: 12/03/21 03:15 Dose: 0 mg/hr, 0 mls/hr Documented By: Infusion: 12/02/21 19:53 Dose: 0.25 mg/hr, 62.5 mls/hr Documented By: Admin: 12/02/21 19:14 Dose: 0.25 mg/hr, 62.5 mls/hr Documented By: ISIS Sodium Chloride (Normal Saline 0.9%) 1,000 mls @ 125 mls/hr IV CONT MIMI Last Admin: 12/03/21 07:45 Dose: Not Given Documented By: TOO Ceftriaxone Sodium 1,000 mg/ (Sodium Chloride) 100 mls @ 200 mls/hr IV Q24H [facility]IMI Azithromycin 500 mg/ Dextrose 250 mls @ 250 mls/hr IV Q24H MIMI Last Infusion: 12/02/21 22:25 Dose: 0 mls/hr Documented By: Admin: 12/02/21 21:24 Dose: 250 mls/hr Documented By: LISSETH Naloxone HCl 2 mg/ Sodium (Chloride) 500 mls @ 62.5 mls/hr IV NOW ONE Stop: 12/03/21 11:48 Last Infusion: 12/03/21 07:30 Dose: 0 mls/hr Documented By: Admin: 12/03/21 03:55 Dose: 62.5 mls/hr Documented By: LISSETH Lorazepam (Lorazepam 2 Mg/Ml Inj) 0 mg IV [id number] PRN; Protocol PRN Reason: Alcohol Withdrawal Multivitamins (Multivitamin 1 Tablet) 1 tab PO DAILY [facility] Last Admin: 12/03/21 09:23 Dose: 1 tab Documented By: TOO Naloxone HCl (Naloxone 0.4 Mg/Ml Vial) 0.2 mg IV Q2MIN ONE Stop: 12/02/21 16:56 Last Admin: 12/02/21 17:11 Dose: 0.2 mg Documented By: ISIS Naloxone HCl (Naloxone 0.4 Mg/Ml Vial) 0.2 mg IV Q2MIN PRN PRN Reason: Opiate Reversal Last Admin: 12/02/21 18:50 Dose: 0.2 mg Documented By: Admin: 12/02/21 18:31 Dose: 0.2 mg Documented By: Admin: 12/02/21 18:27 Dose: 0.2 mg Documented By: MARY Nicotine (Nicotine 21 Mg Patch) 21 mg TOP DAILY [facility] Last Admin: 12/03/21 07:55 Dose: Not Given Documented By: TOO Nicotine (Nicotine 21 Mg Patch) 21 mg TOP NOW ONE Stop: 12/03/21 01:31 Last Admin: 12/03/21 01:46 Dose: 21 mg Documented By: LISSETH Pantoprazole Sodium (Pantoprazole 40 Mg Vial) 40 mg IV DAILY [facility] Potassium Chloride (Potassium Chloride 20 Meq Tab) 40 meq PO NOW ONE Stop: 12/03/21 08:25 Last Admin: 12/03/21 09:23 Dose: 40 meq Documented By: TOO Thiamine HCl (Thiamine 100 Mg Tablet) 100 mg PO DAILY [facility] Stop: 12/06/21 09:01 Last Admin: 12/03/21 09:24 Dose: 100 mg Documented By: TOO Reevaluation(s) Reevaluation #1: Patient alert and conversant immediately after narcan with significant improvement of mentation. Time: 17:34 Reevaluation #2: Patient had decreased mentation again and given second dose of narcan with minimal change, second repeated and started on narcan gtt. Consultations Consultation #1: Dr. Polk, discussed febrile female who was hypoxic and altered arrived. Initially concerned for pulmonary infection but also meningitis but patient responded significantly to Narcan my suspicion for meningitis is significantly lowered. Patient head CT, C-spine and CT PE protocol were negative she has bilateral pneumonia possibly from aspiration she is positive narcotics responded to Narcan and her states that he gave her a T made with poppy ontiveros but unsure if she's had anything else. Spoke with hospitalist patient does meet septic criteria they asked for Narcan drip if she has recurrence of her decreased mentation and plan for ICU admission at this time. She was but not significantly retaining on her ABG initially. Also asked for an ammonia level for patient. Vital Signs Vital signs: Vital Signs - 8 hr 12/02/21 15:27 12/02/21 15:27 12/02/21 15:30 Temperature Pulse Rate 119 H 116 H Respiratory Rate 25 H 29 H Blood Pressure 102/65 Pulse Oximetry 81 L 91 Oxygen Delivery Method Room Air Non -Rebreather Oxygen Flow Rate 12/02/21 15:31 12/02/21 15:31 12/02/21 15:34 Temperature Pulse Rate 115 H 113 H Respiratory Rate 23 23 Blood Pressure 104/70 Pulse Oximetry 92 98 Oxygen Delivery Method Non -Rebreather Oxygen Flow Rate 12/02/21 15:34 12/02/21 15:35 12/02/21 15:57 Temperature 98.6 F Pulse Rate 113 H Respiratory Rate 22 Blood Pressure 113/60 Pulse Oximetry 98 96 Oxygen Delivery Method Non -Rebreather Oxygen Flow Rate 12/02/21 15:39 12/02/21 15:39 12/02/21 15:40 Temperature Pulse Rate 113 H 112 H Respiratory Rate 23 18 Blood Pressure 122/64 Pulse Oximetry 98 98 Oxygen Delivery Method Oxygen Flow Rate 12/02/21 15:41 12/02/21 15:41 12/02/21 15:45 Temperature Pulse Rate 112 H 111 H Respiratory Rate 19 18 Blood Pressure 108/55 L Pulse Oximetry 98 98 Oxygen Delivery Method Oxygen Flow Rate 12/02/21 15:50 12/02/21 15:55 12/02/21 16:00 Temperature Pulse Rate 113 H 112 H 110 H Respiratory Rate 23 26 H 21 Blood Pressure Pulse Oximetry 97 88 L 88 L Oxygen Delivery Method Oxygen Flow Rate 12/02/21 16:01 12/02/21 16:01 12/02/21 16:02 Temperature Pulse Rate 112 H Respiratory Rate 25 H Blood Pressure 116/82 113/72 Pulse Oximetry 88 L Oxygen Delivery Method Oxygen Flow Rate 12/02/21 16:02 12/02/21 16:05 12/02/21 16:08 Temperature 99.9 F H Pulse Rate 111 H 109 H 109 H Respiratory Rate 35 H 35 H 34 H Blood Pressure Pulse Oximetry 89 L 90 L 91 Oxygen Delivery Method Nasal Cannula Nasal Cannula Oxygen Flow Rate 4 4 12/02/21 16:08 12/02/21 16:09 12/02/21 16:09 Temperature 100.9 F H Pulse Rate 109 H Respiratory Rate 25 H Blood Pressure 125/66 130/71 Pulse Oximetry 91 Oxygen Delivery Method Nasal Cannula Oxygen Flow Rate 4 12/02/21 16:10 12/02/21 16:11 12/02/21 16:11 Temperature 101.7 F H 102.2 F H Pulse Rate 109 H 109 H Respiratory Rate 20 21 Blood Pressure 124/68 Pulse Oximetry 91 87 L Oxygen Delivery Method Oxygen Flow Rate 12/02/21 16:15 12/02/21 16:15 12/02/21 16:20 Temperature 102.9 F H Pulse Rate 111 H 110 H Respiratory Rate 27 H Blood Pressure 125/67 Pulse Oximetry 94 Oxygen Delivery Method Oxygen Flow Rate 12/02/21 16:42 12/02/21 16:43 12/02/21 16:43 Temperature 102.9 F H 102.9 F H Pulse Rate 110 H Respiratory Rate Blood Pressure 130/69 Pulse Oximetry 74 L Oxygen Delivery Method Oxygen Flow Rate 12/02/21 16:45 12/02/21 16:45 12/02/21 16:54 Temperature 102.9 F H 102 F H Pulse Rate 109 H Respiratory Rate 14 Blood Pressure 126/66 Pulse Oximetry 99 Oxygen Delivery Method Oxygen Flow Rate 12/02/21 16:30 12/02/21 16:50 12/02/21 16:50 Temperature 102.9 F H Pulse Rate 101 H 109 H Respiratory Rate 16 23 Blood Pressure 138/77 Pulse Oximetry 99 100 Oxygen Delivery Method High Flow Nasal Cannula Oxygen Flow Rate 8 12/02/21 16:55 12/02/21 16:55 12/02/21 17:00 Temperature 102.9 F H Pulse Rate 109 H Respiratory Rate 14 Blood Pressure 138/79 139/70 Pulse Oximetry 100 Oxygen Delivery Method Oxygen Flow Rate 12/02/21 17:00 12/02/21 17:06 12/02/21 17:06 Temperature 102.9 F H 102.9 F H Pulse Rate 108 H 109 H Respiratory Rate Blood Pressure 149/64 H Pulse Oximetry 100 96 Oxygen Delivery Method Oxygen Flow Rate 12/02/21 17:11 12/02/21 17:11 12/02/21 17:15 Temperature 102.7 F H 102.7 F H Pulse Rate 136 H 113 H Respiratory Rate 34 H Blood Pressure 91/54 L Pulse Oximetry 97 99 Oxygen Delivery Method Oxygen Flow Rate 12/02/21 17:16 12/02/21 17:16 12/02/21 17:20 Temperature 102.7 F H 102.7 F H Pulse Rate 112 H 109 H Respiratory Rate Blood Pressure 140/91 H Pulse Oximetry 99 99 Oxygen Delivery Method Oxygen Flow Rate 12/02/21 17:20 12/02/21 17:26 12/02/21 17:26 Temperature 102.7 F H Pulse Rate 107 H Respiratory Rate Blood Pressure 121/78 132/71 Pulse Oximetry 98 Oxygen Delivery Method Oxygen Flow Rate 12/02/21 17:30 12/02/21 17:30 12/02/21 17:35 Temperature 102.7 F H 102.6 F H Pulse Rate 110 H 108 H Respiratory Rate Blood Pressure 119/64 Pulse Oximetry 100 97 Oxygen Delivery Method Oxygen Flow Rate 12/02/21 17:35 12/02/21 17:40 12/02/21 17:40 Temperature 102.6 F H Pulse Rate 105 H Respiratory Rate Blood Pressure 119/68 107/63 Pulse Oximetry 98 Oxygen Delivery Method Oxygen Flow Rate 12/02/21 17:45 12/02/21 17:45 12/02/21 17:50 Temperature 102.4 F H Pulse Rate 104 H Respiratory Rate Blood Pressure 105/57 L 103/56 L Pulse Oximetry 98 Oxygen Delivery Method Oxygen Flow Rate 12/02/21 17:50 12/02/21 17:55 12/02/21 17:55 Temperature 102.2 F H 102.2 F H Pulse Rate 102 H 101 H Respiratory Rate Blood Pressure 98/56 L Pulse Oximetry 98 99 Oxygen Delivery Method Oxygen Flow Rate 12/02/21 18:00 12/02/21 18:00 12/02/21 18:05 Temperature 102.0 F H 101.8 F H Pulse Rate 98 H 98 H Respiratory Rate Blood Pressure 97/56 L Pulse Oximetry 99 99 Oxygen Delivery Method Oxygen Flow Rate 12/02/21 18:05 12/02/21 18:11 12/02/21 18:10 Temperature 101.7 F H 101.8 F H Pulse Rate 97 H Respiratory Rate Blood Pressure 97/53 L Pulse Oximetry 98 Oxygen Delivery Method Oxygen Flow Rate 12/02/21 18:10 12/02/21 18:15 12/02/21 18:15 Temperature 101.7 F H Pulse Rate 97 H Respiratory Rate Blood Pressure 98/57 L 100/58 L Pulse Oximetry 98 Oxygen Delivery Method Oxygen Flow Rate 12/02/21 18:20 12/02/21 18:20 12/02/21 18:25 Temperature 101.5 F H 101.3 F H Pulse Rate 100 H 100 H Respiratory Rate Blood Pressure 105/61 Pulse Oximetry 99 99 Oxygen Delivery Method Oxygen Flow Rate 12/02/21 18:25 12/02/21 18:30 12/02/21 18:30 Temperature 101.1 F H Pulse Rate 99 H Respiratory Rate Blood Pressure 92/56 L 112/67 Pulse Oximetry 99 Oxygen Delivery Method Oxygen Flow Rate 12/02/21 18:35 12/02/21 18:35 12/02/21 18:40 Temperature 101.1 F H Pulse Rate 98 H Respiratory Rate Blood Pressure 111/64 103/59 L Pulse Oximetry 100 Oxygen Delivery Method Oxygen Flow Rate 12/02/21 18:40 12/02/21 18:45 12/02/21 18:45 Temperature 100.9 F H 100.9 F H Pulse Rate 98 H 97 H Respiratory Rate Blood Pressure 101/55 L Pulse Oximetry 99 98 Oxygen Delivery Method Oxygen Flow Rate 12/02/21 18:50 12/02/21 18:50 Temperature 100.8 F H Pulse Rate 96 H Respiratory Rate Blood Pressure 108/62 Pulse Oximetry 98 Oxygen Delivery Method Oxygen Flow Rate MDM - Altered Mental Status Lab Data Result diagrams: 12/03/21 04:52 12/03/21 04:52 Labs: Lab Results 12/02/21 12/02/21 12/02/21 Range/Units 15:30 15:30 15:30 WBC 8.6 (4.5-11.0) X10^3/uL RBC 4.19 (4.0-5.2) X10^6/uL Hgb 13.3 (12.0-16.0) g/dL Hct 38.8 (36-46) % MCV 92.7 (80-100) fL MCH 31.9 (26-34) PG MCHC 34.4 (30-36) % RDW 15.3 H (11.6-14.8) % Plt Count 232 (150-400) X10^3/uL Neut % (Auto) 76.4 H (50-75) % Lymph % (Auto) 17.6 L (25-40) % [place] % (Auto) 5.0 (3-14) % Eos % (Auto) 0.7 L (2-4) % Baso % (Auto) 0.3 (0-2) % Neut # (Auto) 6600 (1588-7590) /uL Lymph # (Auto) 1500 (0025-4764) /uL [place] # (Auto) 400 (0-900) /uL Eos # (Auto) 100 (0-450) /uL Baso # (Auto) 0 (0-100) /uL PT 10.7 (10.1-12.7) SECONDS INR 1.0 (0.9-1.3) APTT (26.4-36.2) SECONDS D-Dimer 353 H (<230) ng/mL ABG pH (7.35-7.45) ABG pCO2 (35-45) mmHg ABG pO2 (80-100) mmHg ABG HCO3 (22-26) mmol/L ABG Total CO2 (21-31) mmol/L ABG O2 Saturation (95-100) % ABG Base Excess (-2-2) mmol/L FiO2 Sodium (137-145) mmol/L Potassium (3.4-5.1) mmol/L Chloride (98-107) mmol/L Carbon Dioxide (22-32) mmol/L BUN (7-17) mg/dL Creatinine (0.52-1.04) mg/dL Estimated GFR (>60) mL/min BUN/Creatinine Ratio (6-22) Glucose (70-100) mg/dL Lactate (0.7-2.1) mmol/L Calcium (8.4-10.2) mg/dL Total Bilirubin (0.2-1.3) mg/dL AST (14-36) IU/L ALT (<35) IU/L Alkaline Phosphatase (38-126) U/L Ammonia (9-30) umol/L Total Creatine Kinase (30-135) U/L CK-MB (CK-2) (<2.37) ng/mL CK-MB (CK-2) Rel Index (1.5-5.0) % Troponin I (0.01-0.034) ng/mL NT-Pro-B Natriuret Pep Cancelled Total Protein (6.3-8.2) g/dL Albumin (3.5-5.0) g/dL Globulin (1.7-4.1) g/dL Albumin/Globulin Ratio (1.0-2.8) Procalcitonin (<0.5) ng/mL TSH (0.47-4.68) uIU/mL Urine Color Urine Appearance Urine pH (4.5-8.0) Ur Specific [place] (1.000-1.035) Urine Protein (Negative) Urine Glucose (UA) (Negative) g/dL Urine Ketones (NEGATIVE) Urine Occult Blood (Negative) Urine Nitrate (Negative) Urine Bilirubin (NEGATIVE) Urine Urobilinogen (0.2) E.U./dL Ur Leukocyte Esterase (NEGATIVE) Urine RBC (0-5/HPF) Urine WBC (0-5/HPF) Urine Bacteria (None) Ur Culture Indicated? Salicylates (<20) mg/dL U Opiates 300ng/mL cut (Negative) Ur Oxycodone Screen (Negative) Urine Methadone Screen (Negative) Acetaminophen (10-30) ug/mL Ur Barbiturates Screen (Negative) U Tricyclic Antidepress (Negative) Ur Phencyclidine Scrn (Negative) Ur Amphetamines Screen (Negative) U Methamphetamines Scrn (Negative) Ur MDMA Scrn (Ecstasy) (Negative) U Benzodiazepines Scrn (Negative) Urine Cocaine Screen (Negative) U Marijuana (THC) Screen (Negative) Ethyl Alcohol ( - 10) mg/dL Chlamy pneumoniae PCR (Not Detect) Adenovirus (PCR) (Not Detect) B. pertussis DNA (PCR) (Not Detecte) B.parapertussis DNA PCR (Not Detecte) Coronavirus OC43 (PCR) (Not Detect) Coronavirus HKU1 (PCR) (Not Detect) Coronavirus 229E (PCR) (Not Detect) SARS-CoV-2 (PCR) (Negative) Coronavirus NL63 (PCR) (Not Detect) Human Metapneumovir PCR (Not Detect) Influenza Type A (PCR) (Not Detect) Influenza Type B (PCR) (Not Detect) M. pneumoniae (PCR) (Not Detect) Parainfluenza 1 (PCR) (Not Detect) Parainfluenza 2 (PCR) (Not Detect) Parainfluenza 3 (PCR) (Not Detect) Parainfluenza 4 (PCR) (Not Detect) RSV (PCR) (Not Detect) Entero/Rhino (PCR) (Not Detect) 12/02/21 12/02/21 12/02/21 Range/Units 15:30 15:30 15:30 WBC (4.5-11.0) X10^3/uL RBC (4.0-5.2) X10^6/uL Hgb (12.0-16.0) g/dL Hct (36-46) % MCV (80-100) fL MCH (26-34) PG MCHC (30-36) % RDW (11.6-14.8) % Plt Count (150-400) X10^3/uL Neut % (Auto) (50-75) % Lymph % (Auto) (25-40) % [place] % (Auto) (3-14) % Eos % (Auto) (2-4) % Baso % (Auto) (0-2) % Neut # (Auto) (9444-0798) /uL Lymph # (Auto) (4614-0414) /uL [place] # (Auto) (0-900) /uL Eos # (Auto) (0-450) /uL Baso # (Auto) (0-100) /uL PT (10.1-12.7) SECONDS INR (0.9-1.3) APTT 37 H D (26.4-36.2) SECONDS D-Dimer (<230) ng/mL ABG pH (7.35-7.45) ABG pCO2 (35-45) mmHg ABG pO2 (80-100) mmHg ABG HCO3 (22-26) mmol/L ABG Total CO2 (21-31) mmol/L ABG O2 Saturation (95-100) % ABG Base Excess (-2-2) mmol/L FiO2 Sodium 129 L (137-145) mmol/L Potassium 4.2 (3.4-5.1) mmol/L Chloride 98 (98-107) mmol/L Carbon Dioxide 26 (22-32) mmol/L BUN 4 L (7-17) mg/dL Creatinine 0.63 (0.52-1.04) mg/dL Estimated GFR > 60 (>60) mL/min BUN/Creatinine Ratio 6.3 (6-22) Glucose 85 (70-100) mg/dL Lactate 2.0 (0.7-2.1) mmol/L Calcium 8.5 (8.4-10.2) mg/dL Total Bilirubin 0.3 (0.2-1.3) mg/dL AST 25 (14-36) IU/L ALT 9 (<35) IU/L Alkaline Phosphatase 81 (38-126) U/L Ammonia (9-30) umol/L Total Creatine Kinase 257 H (30-135) U/L CK-MB (CK-2) 1.99 (<2.37) ng/mL CK-MB (CK-2) Rel Index 0.8 L (1.5-5.0) % Troponin I < 0.012 (0.01-0.034) ng/mL NT-Pro-B Natriuret Pep 470 H Total Protein 6.1 L (6.3-8.2) g/dL Albumin 3.4 L (3.5-5.0) g/dL Globulin 2.7 (1.7-4.1) g/dL Albumin/Globulin Ratio 1.3 (1.0-2.8) Procalcitonin 0.04 (<0.5) ng/mL TSH (0.47-4.68) uIU/mL Urine Color Urine Appearance Urine pH (4.5-8.0) Ur Specific [place] (1.000-1.035) Urine Protein (Negative) Urine Glucose (UA) (Negative) g/dL Urine Ketones (NEGATIVE) Urine Occult Blood (Negative) Urine Nitrate (Negative) Urine Bilirubin (NEGATIVE) Urine Urobilinogen (0.2) E.U./dL Ur Leukocyte Esterase (NEGATIVE) Urine RBC (0-5/HPF) Urine WBC (0-5/HPF) Urine Bacteria (None) Ur Culture Indicated? Salicylates (<20) mg/dL U Opiates 300ng/mL cut (Negative) Ur Oxycodone Screen (Negative) Urine Methadone Screen (Negative) Acetaminophen (10-30) ug/mL Ur Barbiturates Screen (Negative) U Tricyclic Antidepress (Negative) Ur Phencyclidine Scrn (Negative) Ur Amphetamines Screen (Negative) U Methamphetamines Scrn (Negative) Ur MDMA Scrn (Ecstasy) (Negative) U Benzodiazepines Scrn (Negative) Urine Cocaine Screen (Negative) U Marijuana (THC) Screen (Negative) Ethyl Alcohol ( - 10) mg/dL Chlamy pneumoniae PCR (Not Detect) Adenovirus (PCR) (Not Detect) B. pertussis DNA (PCR) (Not Detecte) B.parapertussis DNA PCR (Not Detecte) Coronavirus OC43 (PCR) (Not Detect) Coronavirus HKU1 (PCR) (Not Detect) Coronavirus 229E (PCR) (Not Detect) SARS-CoV-2 (PCR) (Negative) Coronavirus NL63 (PCR) (Not Detect) Human Metapneumovir PCR (Not Detect) Influenza Type A (PCR) (Not Detect) Influenza Type B (PCR) (Not Detect) M. pneumoniae (PCR) (Not Detect) Parainfluenza 1 (PCR) (Not Detect) Parainfluenza 2 (PCR) (Not Detect) Parainfluenza 3 (PCR) (Not Detect) Parainfluenza 4 (PCR) (Not Detect) RSV (PCR) (Not Detect) Entero/Rhino (PCR) (Not Detect) 12/02/21 12/02/21 12/02/21 Range/Units 15:30 15:30 15:30 WBC (4.5-11.0) X10^3/uL RBC (4.0-5.2) X10^6/uL Hgb (12.0-16.0) g/dL Hct (36-46) % MCV (80-100) fL MCH (26-34) PG MCHC (30-36) % RDW (11.6-14.8) % Plt Count (150-400) X10^3/uL Neut % (Auto) (50-75) % Lymph % (Auto) (25-40) % [place] % (Auto) (3-14) % Eos % (Auto) (2-4) % Baso % (Auto) (0-2) % Neut # (Auto) (0112-2207) /uL Lymph # (Auto) (3476-9725) /uL [place] # (Auto) (0-900) /uL Eos # (Auto) (0-450) /uL Baso # (Auto) (0-100) /uL PT (10.1-12.7) SECONDS INR (0.9-1.3) APTT (26.4-36.2) SECONDS D-Dimer (<230) ng/mL ABG pH (7.35-7.45) ABG pCO2 (35-45) mmHg ABG pO2 (80-100) mmHg ABG HCO3 (22-26) mmol/L ABG Total CO2 (21-31) mmol/L ABG O2 Saturation (95-100) % ABG Base Excess (-2-2) mmol/L FiO2 Sodium (137-145) mmol/L Potassium (3.4-5.1) mmol/L Chloride (98-107) mmol/L Carbon Dioxide (22-32) mmol/L BUN (7-17) mg/dL Creatinine (0.52-1.04) mg/dL Estimated GFR (>60) mL/min BUN/Creatinine Ratio (6-22) Glucose (70-100) mg/dL Lactate (0.7-2.1) mmol/L Calcium (8.4-10.2) mg/dL Total Bilirubin (0.2-1.3) mg/dL AST (14-36) IU/L ALT (<35) IU/L Alkaline Phosphatase (38-126) U/L Ammonia (9-30) umol/L Total Creatine Kinase (30-135) U/L CK-MB (CK-2) (<2.37) ng/mL CK-MB (CK-2) Rel Index (1.5-5.0) % Troponin I (0.01-0.034) ng/mL NT-Pro-B Natriuret Pep Total Protein (6.3-8.2) g/dL Albumin (3.5-5.0) g/dL Globulin (1.7-4.1) g/dL Albumin/Globulin Ratio (1.0-2.8) Procalcitonin (<0.5) ng/mL TSH 2.32 (0.47-4.68) uIU/mL Urine Color Urine Appearance Urine pH (4.5-8.0) Ur Specific [place] (1.000-1.035) Urine Protein (Negative) Urine Glucose (UA) (Negative) g/dL Urine Ketones (NEGATIVE) Urine Occult Blood (Negative) Urine Nitrate (Negative) Urine Bilirubin (NEGATIVE) Urine Urobilinogen (0.2) E.U./dL Ur Leukocyte Esterase (NEGATIVE) Urine RBC (0-5/HPF) Urine WBC (0-5/HPF) Urine Bacteria (None) Ur Culture Indicated? Salicylates < 1.0 (<20) mg/dL U Opiates 300ng/mL cut (Negative) Ur Oxycodone Screen (Negative) Urine Methadone Screen (Negative) Acetaminophen < 10 (10-30) ug/mL Ur Barbiturates Screen (Negative) U Tricyclic Antidepress (Negative) Ur Phencyclidine Scrn (Negative) Ur Amphetamines Screen (Negative) U Methamphetamines Scrn (Negative) Ur MDMA Scrn (Ecstasy) (Negative) U Benzodiazepines Scrn (Negative) Urine Cocaine Screen (Negative) U Marijuana (THC) Screen (Negative) Ethyl Alcohol < 10 ( - 10) mg/dL Chlamy pneumoniae PCR (Not Detect) Adenovirus (PCR) (Not Detect) B. pertussis DNA (PCR) (Not Detecte) B.parapertussis DNA PCR (Not Detecte) Coronavirus OC43 (PCR) (Not Detect) Coronavirus HKU1 (PCR) (Not Detect) Coronavirus 229E (PCR) (Not Detect) SARS-CoV-2 (PCR) Negative (Negative) Coronavirus NL63 (PCR) (Not Detect) Human Metapneumovir PCR (Not Detect) Influenza Type A (PCR) (Not Detect) Influenza Type B (PCR) (Not Detect) M. pneumoniae (PCR) (Not Detect) Parainfluenza 1 (PCR) (Not Detect) Parainfluenza 2 (PCR) (Not Detect) Parainfluenza 3 (PCR) (Not Detect) Parainfluenza 4 (PCR) (Not Detect) RSV (PCR) (Not Detect) Entero/Rhino (PCR) (Not Detect) 12/02/21 12/02/21 12/02/21 Range/Units 15:30 16:00 16:08 WBC (4.5-11.0) X10^3/uL RBC (4.0-5.2) X10^6/uL Hgb (12.0-16.0) g/dL Hct (36-46) % MCV (80-100) fL MCH (26-34) PG MCHC (30-36) % RDW (11.6-14.8) % Plt Count (150-400) X10^3/uL Neut % (Auto) (50-75) % Lymph % (Auto) (25-40) % [place] % (Auto) (3-14) % Eos % (Auto) (2-4) % Baso % (Auto) (0-2) % Neut # (Auto) (7816-8874) /uL Lymph # (Auto) (5524-0819) /uL [place] # (Auto) (0-900) /uL Eos # (Auto) (0-450) /uL Baso # (Auto) (0-100) /uL PT (10.1-12.7) SECONDS INR (0.9-1.3) APTT (26.4-36.2) SECONDS D-Dimer (<230) ng/mL ABG pH 7.36 (7.35-7.45) ABG pCO2 49.5 H (35-45) mmHg ABG pO2 54 L (80-100) mmHg ABG HCO3 28 H (22-26) mmol/L ABG Total CO2 29 (21-31) mmol/L ABG O2 Saturation 85 L* (95-100) % ABG Base Excess 2.0 (-2-2) mmol/L FiO2 35 Sodium (137-145) mmol/L Potassium (3.4-5.1) mmol/L Chloride (98-107) mmol/L Carbon Dioxide (22-32) mmol/L BUN (7-17) mg/dL Creatinine (0.52-1.04) mg/dL Estimated GFR (>60) mL/min BUN/Creatinine Ratio (6-22) Glucose (70-100) mg/dL Lactate (0.7-2.1) mmol/L Calcium (8.4-10.2) mg/dL Total Bilirubin (0.2-1.3) mg/dL AST (14-36) IU/L ALT (<35) IU/L Alkaline Phosphatase (38-126) U/L Ammonia (9-30) umol/L Total Creatine Kinase (30-135) U/L CK-MB (CK-2) (<2.37) ng/mL CK-MB (CK-2) Rel Index (1.5-5.0) % Troponin I (0.01-0.034) ng/mL NT-Pro-B Natriuret Pep Total Protein (6.3-8.2) g/dL Albumin (3.5-5.0) g/dL Globulin (1.7-4.1) g/dL Albumin/Globulin Ratio (1.0-2.8) Procalcitonin (<0.5) ng/mL TSH (0.47-4.68) uIU/mL Urine Color Yellow Urine Appearance Clear Urine pH 6.0 (4.5-8.0) Ur Specific [place] <=1.005 (1.000-1.035) Urine Protein Negative (Negative) Urine Glucose (UA) Negative (Negative) g/dL Urine Ketones Negative (NEGATIVE) Urine Occult Blood Negative (Negative) Urine Nitrate Negative (Negative) Urine Bilirubin Negative (NEGATIVE) Urine Urobilinogen 0.2 (0.2) E.U./dL Ur Leukocyte Esterase Negative (NEGATIVE) Urine RBC None seen (0-5/HPF) Urine WBC 0-1/hpf (0-5/HPF) Urine Bacteria None seen (None) Ur Culture Indicated? Culture not indicate Salicylates (<20) mg/dL U Opiates 300ng/mL cut (Negative) Ur Oxycodone Screen (Negative) Urine Methadone Screen (Negative) Acetaminophen (10-30) ug/mL Ur Barbiturates Screen (Negative) U Tricyclic Antidepress (Negative) Ur Phencyclidine Scrn (Negative) Ur Amphetamines Screen (Negative) U Methamphetamines Scrn (Negative) Ur MDMA Scrn (Ecstasy) (Negative) U Benzodiazepines Scrn (Negative) Urine Cocaine Screen (Negative) U Marijuana (THC) Screen (Negative) Ethyl Alcohol ( - 10) mg/dL Chlamy pneumoniae PCR Not detected (Not Detect) Adenovirus (PCR) Not detected (Not Detect) B. pertussis DNA (PCR) Not detected (Not Detecte) B.parapertussis DNA PCR Not detected (Not Detecte) Coronavirus OC43 (PCR) Not detected (Not Detect) Coronavirus HKU1 (PCR) Not detected (Not Detect) Coronavirus 229E (PCR) Not detected (Not Detect) SARS-CoV-2 (PCR) Not detected (Negative) Coronavirus NL63 (PCR) Not detected (Not Detect) Human Metapneumovir PCR Not detected (Not Detect) Influenza Type A (PCR) Not detected (Not Detect) Influenza Type B (PCR) Not detected (Not Detect) M. pneumoniae (PCR) Not detected (Not Detect) Parainfluenza 1 (PCR) Not detected (Not Detect) Parainfluenza 2 (PCR) Not detected (Not Detect) Parainfluenza 3 (PCR) Not detected (Not Detect) Parainfluenza 4 (PCR) Not detected (Not Detect) RSV (PCR) Not detected (Not Detect) Entero/Rhino (PCR) Not detected (Not Detect) 12/02/21 12/02/21 Range/Units 16:08 19:00 WBC (4.5-11.0) X10^3/uL RBC (4.0-5.2) X10^6/uL Hgb (12.0-16.0) g/dL Hct (36-46) % MCV (80-100) fL MCH (26-34) PG MCHC (30-36) % RDW (11.6-14.8) % Plt Count (150-400) X10^3/uL Neut % (Auto) (50-75) % Lymph % (Auto) (25-40) % [place] % (Auto) (3-14) % Eos % (Auto) (2-4) % Baso % (Auto) (0-2) % Neut # (Auto) (3006-8407) /uL Lymph # (Auto) (8451-2851) /uL [place] # (Auto) (0-900) /uL Eos # (Auto) (0-450) /uL Baso # (Auto) (0-100) /uL PT (10.1-12.7) SECONDS INR (0.9-1.3) APTT (26.4-36.2) SECONDS D-Dimer (<230) ng/mL ABG pH (7.35-7.45) ABG pCO2 (35-45) mmHg ABG pO2 (80-100) mmHg ABG HCO3 (22-26) mmol/L ABG Total CO2 (21-31) mmol/L ABG O2 Saturation (95-100) % ABG Base Excess (-2-2) mmol/L FiO2 Sodium (137-145) mmol/L Potassium (3.4-5.1) mmol/L Chloride (98-107) mmol/L Carbon Dioxide (22-32) mmol/L BUN (7-17) mg/dL Creatinine (0.52-1.04) mg/dL Estimated GFR (>60) mL/min BUN/Creatinine Ratio (6-22) Glucose (70-100) mg/dL Lactate (0.7-2.1) mmol/L Calcium (8.4-10.2) mg/dL Total Bilirubin (0.2-1.3) mg/dL AST (14-36) IU/L ALT (<35) IU/L Alkaline Phosphatase (38-126) U/L Ammonia 9 (9-30) umol/L Total Creatine Kinase (30-135) U/L CK-MB (CK-2) (<2.37) ng/mL CK-MB (CK-2) Rel Index (1.5-5.0) % Troponin I (0.01-0.034) ng/mL NT-Pro-B Natriuret Pep Total Protein (6.3-8.2) g/dL Albumin (3.5-5.0) g/dL Globulin (1.7-4.1) g/dL Albumin/Globulin Ratio (1.0-2.8) Procalcitonin (<0.5) ng/mL TSH (0.47-4.68) uIU/mL Urine Color Urine Appearance Urine pH (4.5-8.0) Ur Specific [place] (1.000-1.035) Urine Protein (Negative) Urine Glucose (UA) (Negative) g/dL Urine Ketones (NEGATIVE) Urine Occult Blood (Negative) Urine Nitrate (Negative) Urine Bilirubin (NEGATIVE) Urine Urobilinogen (0.2) E.U./dL Ur Leukocyte Esterase (NEGATIVE) Urine RBC (0-5/HPF) Urine WBC (0-5/HPF) Urine Bacteria (None) Ur Culture Indicated? Salicylates (<20) mg/dL U Opiates 300ng/mL cut Positive H (Negative) Ur Oxycodone Screen Negative (Negative) Urine Methadone Screen Negative (Negative) Acetaminophen (10-30) ug/mL Ur Barbiturates Screen Negative (Negative) U Tricyclic Antidepress Negative (Negative) Ur Phencyclidine Scrn Negative (Negative) Ur Amphetamines Screen Negative (Negative) U Methamphetamines Scrn Negative (Negative) Ur MDMA Scrn (Ecstasy) Negative (Negative) U Benzodiazepines Scrn Negative (Negative) Urine Cocaine Screen Negative (Negative) U Marijuana (THC) Screen Negative (Negative) Ethyl Alcohol ( - 10) mg/dL Chlamy pneumoniae PCR (Not Detect) Adenovirus (PCR) (Not Detect) B. pertussis DNA (PCR) (Not Detecte) B.parapertussis DNA PCR (Not Detecte) Coronavirus OC43 (PCR) (Not Detect) Coronavirus HKU1 (PCR) (Not Detect) Coronavirus 229E (PCR) (Not Detect) SARS-CoV-2 (PCR) (Negative) Coronavirus NL63 (PCR) (Not Detect) Human Metapneumovir PCR (Not Detect) Influenza Type A (PCR) (Not Detect) Influenza Type B (PCR) (Not Detect) M. pneumoniae (PCR) (Not Detect) Parainfluenza 1 (PCR) (Not Detect) Parainfluenza 2 (PCR) (Not Detect) Parainfluenza 3 (PCR) (Not Detect) Parainfluenza 4 (PCR) (Not Detect) RSV (PCR) (Not Detect) Entero/Rhino (PCR) (Not Detect) Point of Care Testing Glucose POC 97 ABG Data ABG results: Patient 7.36, CO2 of 49, PaO2 of 54, HC03 of 28. Patient has normal PH with slight elevation of pCO2, normal pH with a respiratory acidosis with appropriate metabolic compensation and hypoxic respiratory failure Imaging Data CT scan - head: Radiologist's Impression: [address] [address] [address] Scan Report Signed Patient: Rebekah Washington MR#: [id number] : 1970 Acct:[id number] Age/Sex: 51 / F Date of Service: 12/02/21 Loc: ED Accession Number: [id number] ?? Procedure: CT head/brain wo con Ordering Provider: Zamzam Dickerson D.O. PROCEDURE:? CT HEAD/BRAIN WO CON ? INDICATIONS:? altered, low O2 sats ? TECHNIQUE:? Noncontrast 4.5 mm thick angled axial sections acquired from the foramen magnum to the vertex, with coronal and sagittal reformats.? For radiation dose reduction, the following was used:? automated exposure control, adjustment of mA and/or kV according to patient size.? ? COMPARISON:? [facility], CT, CT HEAD/BRAIN WO CON, 08/11/2021, 12:47. ? FINDINGS:? Image quality:? Excellent.? ? CSF spaces:? Basal cisterns are patent.? No extra-axial fluid collections.? Ventricles are normal in size and shape.? ? Brain:? No midline shift.? No intracranial masses or hemorrhage.? Deshpande-white matter interface is normal.? ? Skull and face:? Calvarium and visualized facial bones are intact, without suspicious lesions.? ? Sinuses:? Visualized sinuses and mastoids are clear.? ? IMPRESSION:? No acute intracranial abnormality. ? ? Dictated by: Simone Mcdowell M.D. on 12/02/2021 at 16:05 ? ? Approved by: Simone Mcdowell M.D. on 12/02/2021 at 16:07?? CT scan - chest: Radiologist's Impression: Rebekah Washington??51??F??1970 ? Allergy/Adv: No Known Drug Allergies Close Chest CTA (Signed) Simone Mcdowell - 12/02/[address] (Signed) Simone Mcdowell - 12/02/[address] (Signed) Simone Mcdowell - 12/02/21 Chest X-Ray (Signed) Simone Mcdowell - 12/02/21 Lumbar Spine MRI (Signed) Ld Jimenez - 11/08/21 Knee X-Ray (Signed) Leroy Burgess - 08/22/21 Knee X-Ray (Cancelled) 08/22/[address] (Signed) Cole Nick - 08/11/21 Chest/Abdomen/Pelvis CT (Addendum) MinnieHal - 08/11/[address] (Signed) Cole Nick - 08/11/21 Chest X-Ray (Signed) Simone Mcdowell - 08/11/21 Pelvis X-Ray (Signed) Simone Mcdowell - 08/11/21 Knee X-Ray (Signed) Simone Mcdowell - 08/11/21 Ankle X-Ray (Signed) Simone Mcdowell - 08/11/[address] (Signed) Bethel Salvador - 08/11/21 Echocardiogram Ultrasound (Signed) SherifclayJose Antonio - 08/01/21 Telemetry Strips 07/31/21 Chest CTA (Signed) Cole Nick - 07/31/[address] (Signed) Cole Nick - 07/31/21 Chest X-Ray (Signed) Chad Nickson - 07/31/21 Telemetry Strips 03/31/21 Knee X-Ray (Signed) Jeremie Dow - 03/31/21 Vascular Ultrasound (Signed) Cholo Villalobos - 03/12/21 Telemetry Strips 03/07/21 Knee X-Ray (Signed) Bethel Salvador - 03/07/21 Bone Densitometry 02/07/21 EKG Rpt. 05/17/16 EKG Rpt. 05/17/16 Launch?Image [address] [address] [address] Scan Report Signed Patient: Rebekah Washington MR#: [id number] : 1970 Acct:[id number] Age/Sex: 51 / F Date of Service: 12/02/21 Loc: ED Accession Number: [id number] ?? Procedure: CT angio chest PE protocol Ordering Provider: Zamzam Dickerson D.O. PROCEDURE:? CT ANGIO CHEST PE PROTOCOL ? INDICATIONS:? hypoxia, elevated dimer ? TECHNIQUE:? After the administration of intravenous contrast, 2 mm thick sections acquired from the pulmonary apices to the posterior costophrenic angles.? 3-dimensional maximum intensity projection (MIP) coronal and sagittal reformats were then acquired through the thorax.? For radiation dose reduction, the following was used:? automated exposure control, adjustment of mA and/or kV according to patient size.? ? COMPARISON:? [facility], CR, XR CHEST 1V, 12/02/2021, 15:48.? [facility], CT, CT HEAD/BRAIN WO CON, 12/02/2021, 16:09.? [facility], CT, CT ANGIO CHEST PE PROTOCOL, 07/31/2021, 19:24. ? FINDINGS:? Image quality:? Excellent.? ? Pulmonary arteries:? Pulmonary arteries are normal in size, and demonstrate no intraluminal filling defects to suggest central pulmonary embolism.? ? Lungs and pleura:? Bibasilar consolidations are similar to the prior CT.? Extensive ground-glass opacity seen previously have mostly resolved.? No pneumothorax or pleural effusion. ? Mediastinum:? Heart size is normal, without pericardial effusion.? No mediastinal or hilar adenopathy.? Thoracic aorta is normal in caliber and enhancement.? Esophagus is normal in caliber, without hiatal hernia.? ? Bones and chest wall:? No suspicious bony lesions.? Ribs and thoracic spine appear intact throughout.? Thyroid gland is normal.? No axillary or supraclavicular adenopathy.? ? Abdomen:? Visualized upper abdominal solid organs appear normal in the early arterial phase of enhancement.? ? IMPRESSION:? 1. No pulmonary embolism. 2. Bilateral bibasilar consolidations consistent with atelectasis/pneumonia. 3. Diffuse patchy ground-glass opacities are significantly improved compared to the prior CT a component of superimposed CHF could also be present.? ? ? Dictated by: Simone Mcdowell M.D. on 12/02/2021 at 16:09 ? ? Approved by: Simone Mcdowell M.D. on 12/02/2021 at 16:14 CT - cervical spine: Radiologist's Impression: [place] [address] CT Scan Report Signed Patient: Rebekah Washington MR#: [id number] : 1970 Acct:[id number] Age/Sex: 51 / F Date of Service: 12/02/21 Loc: ED Accession Number: [id number] ?? Procedure: CT cervical spine wo con Ordering Provider: Zamzam Dickerson D.O. PROCEDURE:? CT CERVICAL SPINE WO CON ? INDICATIONS:? fall ? TECHNIQUE:? Noncontrast 3 mm thick sections acquired from the skull base to the T4 level.? Sagittal and coronal reformats were then constructed.? For radiation dose reduction, the following was used:? automated exposure control, adjustment of mA and/or kV according to patient size.? ? COMPARISON:? [facility], CT, CT CERVICAL SPINE WO CON, 08/11/2021, 12:47. ? FINDINGS:? Image quality:? Excellent.? ? Bones:? No fractures or dislocations.? Visualized superior ribs are intact.? ? Soft tissues:? Prevertebral soft tissues are normal in thickness.? No paravertebral hematomas.? No apical pneumothoraces.? ? ? IMPRESSION:? No acute traumatic abnormality of the cervical spine. ? ? Dictated by: Simone Mcdowell M.D. on 12/02/2021 at 16:07 ? ? Approved by: Simone Mcdowell M.D. on 12/02/2021 at 16:09?? ECG Data Attestation: I personally reviewed and interpreted this ECG as follows: Interpretation: Rate of 79 AR 176 QRS is 74 QTC [address] No acute [address] changes. Patient has prior from 07/31/[address] changes. MDM Narrative Medical decision making narrative: This is a 51-year-old female who presents hypoxic and altered. As well as febrile. There was initial concern for meningitis but patient responded immediately to Narcan. She was found to have pneumonia on imaging, CT was obtained as her D-dimer was elevated. ABG shows hypoxia but no significant PH changes or hypercapnic respiratory failure. Patient is suspected to have developed aspiration secondary to opiate overdose. After discussion with she had been drinking a Poppy based T which is likely the cause and is positive for narcotics on her UDS. Patient was started on IV antibiotics, she was ultimately placed on a Narcan drip as she had recurrent symptoms. Case was discussed with hospitalist, Dr. Camarena who accepts plan for ICU placement. Patient did have hyponatremia likely more secondary to her infection, normal renal function other parisi electrolytes were appropriate. Ammonia negative. Critical Care Time Critical Care Time Critical Care Time: Yes Total Critical Care Time: 35 Attestation: The high probability of a clinically significant, sudden or life threatening deterioration of the [cardiac, pulm] system(s) required my full and direct attention, intervention and personal management. The aggregate critical care time was [] minutes. This time is in addition to time spent performing reported procedures but includes the following: [x] Data Review and interpretation [x] Patient assessment and monitoring of vital signs [x] Documentation [x] Medication orders and management Discharge Plan Departure Patient Disposition: Admitted As Inpatient Clinical Impression: Acute alteration in mental status, Pneumonia, Opiate overdose Admit Date/Time: 12/02/21 19:06 Admit Provider: Josue Polk
[2021-12-02] MEDS: SODIUM CHLORIDE 0.9% 1,000 ML 1000 ML IV ×2 (15:45→15:47)
[2021-12-02 15:53] LABS: Add Manual Diff / Slide Review NO; Basophils Absolute Auto 0 /uL (0-100); Basophils Percent Auto 0.3 % (0-2); Eosinophils Absolute Auto 100 /uL (0-450); Eosinophils Percent Auto 0.7 % (2-4); Hematocrit 38.8 % (36-46); Hemoglobin 13.3 g/dL (12.0-16.0); Lymphocytes Absolute Auto 1500 /uL (1100-4500); Lymphocytes Percent Auto 17.6 % (25-40); Mean Corpuscular HGB Conc 34.4 % (30-36); Mean Corpuscular Hemoglobin 31.9 PG (26-34); Mean Corpuscular Volume 92.7 fL (80-100); Monocytes Absolute Auto 400 /uL (0-900); Neutrophils Absolute Auto 6600 /uL (1500-7000); Neutrophils Percent Auto 76.4 % (50-75); Platelet Count 232 X10^3/uL (150-400); Red Blood Cell Count 4.19 X10^6/uL (4.0-5.2); Red Cell Distribution Width 15.3 % (11.6-14.8); White Blood Cell Count 8.6 X10^3/uL (4.5-11.0)
--- NOTE | 2021-12-02 15:54 | DI.CT.S_ITS ---
PROCEDURE: CT CERVICAL SPINE WO CON INDICATIONS: fall TECHNIQUE: Noncontrast 3 mm thick sections acquired from the skull base to the T4 level. Sagittal and coronal reformats were then constructed. For radiation dose reduction, the following was used: automated exposure control, adjustment of mA and/or kV according to patient size. COMPARISON: [facility], CT, CT CERVICAL SPINE WO CON, 08/11/2021, 12:47. FINDINGS: Image quality: Excellent. Bones: No fractures or dislocations. Visualized superior ribs are intact. Soft tissues: Prevertebral soft tissues are normal in thickness. No paravertebral hematomas. No apical pneumothoraces. IMPRESSION: No acute traumatic abnormality of the cervical spine. Dictated by: Simone Mcdowell M.D. on 12/02/2021 at 16:07 Approved by: Simone Mcdowell M.D. on 12/02/2021 at 16:09
[2021-12-02 15:57] LABS: Prothrombin Time 10.7 SECONDS (10.1-12.7)
[2021-12-02 16:00] LABS: D Dimer 353 ng/mL (<230)
[2021-12-02 16:01] LABS: Alanine Aminotransferase 9 IU/L (<35); Albumin 3.4 g/dL (3.5-5.0); Albumin Globulin Ratio 1.3 (1.0-2.8); Alkaline Phosphatase 81 U/L (38-126); Aspartate Aminotransferase 25 IU/L (14-36); BUN Creatinine Ratio 6.3 (6-22); Bilirubin Total 0.3 mg/dL (0.2-1.3); Blood Urea Nitrogen 4 mg/dL (7-17); Calcium 8.5 mg/dL (8.4-10.2); Carbon Dioxide 26 mmol/L (22-32); Chloride 98 mmol/L (98-107); Creatine Kinase 257 U/L (30-135); Estimated Glomerular Filt Rate > 60 mL/min (>60); Globulin 2.7 g/dL (1.7-4.1); Glucose 85 mg/dL (70-100); HEMOLYSIS 23 (0-50); Potassium 4.2 mmol/L (3.4-5.1); Sodium 129 mmol/L (137-145); Total Protein 6.1 g/dL (6.3-8.2)
[2021-12-02 16:08] LABS: PTT Partial Thromboplastin Tim 37 SECONDS (26.4-36.2)
[2021-12-02 16:12] LABS: NT-proBNP (BNP-Adult 18+) 470 pg/mL (<125); Troponin I < 0.012 ng/mL (0.01-0.034)
[2021-12-02 16:13] LABS: Acetaminophen < 10 ug/mL (10-30); Ethanol (ETOH) < 10 mg/dL; Salicylate < 1.0 mg/dL (<20)
[2021-12-02 16:14] LABS: COVID19 -Nasal RAPID Negative (Negative)
[2021-12-02 16:16] LABS: CKMB % Relative Index 0.8 % (1.5-5.0); Creatine Kinase MB 1.99 ng/mL (<2.37)
[2021-12-02 16:17] LABS: Procalcitonin 0.04 ng/mL (<0.5)
[2021-12-02] MEDS: ALBUTEROL/IPRATROPIUM 3 ML AMPUL INH (16:17)
[2021-12-02 16:19] LABS: Appearance Urine UA CLEAR; Bilirubin Urine UA NEGATIVE (NEGATIVE); Color Urine UA YELLOW; Glucose Urine UA NEGATIVE (Negative); Ketones Urine UA NEGATIVE (NEGATIVE); Leukocyte Esterase Urine UA NEGATIVE (NEGATIVE); Nitrite Urine UA NEGATIVE (Negative); Occult Blood Urine UA NEGATIVE (Negative); Protein Urine UA NEGATIVE (Negative); Specific Gravity Urine UA <=1.005 (1.000-1.035); Urobilinogen Urine UA 0.2 E.U./dL (0.2)
--- NOTE | 2021-12-02 16:24 | DI.CT.S_ITS ---
PROCEDURE: CT ANGIO CHEST PE PROTOCOL INDICATIONS: hypoxia, elevated dimer TECHNIQUE: After the administration of intravenous contrast, 2 mm thick sections acquired from the pulmonary apices to the posterior costophrenic angles. 3-dimensional maximum intensity projection (MIP) coronal and sagittal reformats were then acquired through the thorax. For radiation dose reduction, the following was used: automated exposure control, adjustment of mA and/or kV according to patient size. COMPARISON: [facility], CR, XR CHEST 1V, 12/02/2021, 15:48. [facility], CT, CT HEAD/BRAIN WO CON, 12/02/2021, 16:09. [facility], CT, CT ANGIO CHEST PE PROTOCOL, 07/31/2021, 19:24. FINDINGS: Image quality: Excellent. Pulmonary arteries: Pulmonary arteries are normal in size, and demonstrate no intraluminal filling defects to suggest central pulmonary embolism. Lungs and pleura: Bibasilar consolidations are similar to the prior CT. Extensive ground-glass opacity seen previously have mostly resolved. No pneumothorax or pleural effusion. Mediastinum: Heart size is normal, without pericardial effusion. No mediastinal or hilar adenopathy. Thoracic aorta is normal in caliber and enhancement. Esophagus is normal in caliber, without hiatal hernia. Bones and chest wall: No suspicious bony lesions. Ribs and thoracic spine appear intact throughout. Thyroid gland is normal. No axillary or supraclavicular adenopathy. Abdomen: Visualized upper abdominal solid organs appear normal in the early arterial phase of enhancement. IMPRESSION: 1. No pulmonary embolism. 2. Bilateral bibasilar consolidations consistent with atelectasis/pneumonia. 3. Diffuse patchy ground-glass opacities are significantly improved compared to the prior CT a component of superimposed CHF could also be present. Dictated by: Simone Mcdowell M.D. on 12/02/2021 at 16:09 Approved by: Simone Mcdowell M.D. on 12/02/2021 at 16:14
[2021-12-02 16:29] LABS: UR Morphine/Opiate cutoff 300 Positive (Negative); Ur Creatinine Normal (Normal); Ur Specific Gravity Normal (Normal); Urine Amphetamines Negative (Negative); Urine Barbiturates Negative (Negative); Urine Benzodiazepines Negative (Negative); Urine Cocaine Negative (Negative); Urine MDMA Negative (Negative); Urine Methadone Negative (Negative); Urine Methamphetamines Negative (Negative); Urine Oxycodone Negative (Negative); Urine Phencyclidine Negative (Negative); Urine Tetrahydrocannabinol Negative (Negative); Urine Tricyclic Antidepressant Negative (Negative); Urine pH Normal (Normal)
[2021-12-02 16:32] LABS: RBC Urine None Seen (0-5/HPF); WBC Urine 0-1/HPF (0-5/HPF)
[2021-12-02 16:33] LABS: Bacteria Urine None Seen
[2021-12-02 16:40] LABS: Thyroid Stimulating Hormone 2.32 uIU/mL (0.47-4.68)
[2021-12-02 16:43] LABS: Adenovirus Not Detected (Not Detect); Coronavirus 229E Not Detected (Not Detect); Coronavirus HKU1 Not Detected (Not Detect); Coronavirus NL 63 Not Detected (Not Detect); Coronavirus OC43 Not Detected (Not Detect); Human Metapneumovirus Not Detected (Not Detect); Human Rhinovirus/Enterovirus Not Detected (Not Detect); Influenza A Not Detected (Not Detect); Influenza B Not Detected (Not Detect); Parainfluenza Virus 1 Not Detected (Not Detect); SARS- CoV-2 Not Detected (Not Detecte)
[2021-12-02 16:44] LABS: B. parapertussis Not Detected (Not Detecte); Bordetella pertussis Not Detected (Not Detecte); Chlamydophila pneumoniae Not Detected (Not Detect); Mycoplasma pneumoniae Not Detected (Not Detect); Parainfluenza Virus 2 Not Detected (Not Detect); Parainfluenza Virus 3 Not Detected (Not Detect); Parainfluenza Virus 4 Not Detected (Not Detect); Respiratory Syncytial Virus Not Detected (Not Detect)
[2021-12-02 16:54] LABS: PCO2 ABG 49.5 mmHg (35-45); pH ABG 7.36 (7.35-7.45)
[2021-12-02] MEDS: ACETAMINOPHEN 650 MG SUPP PR (16:54)
[2021-12-02 16:55] LABS: HCO3 ABG 28 mmol/L (22-26); TCO2 ABG 29 mmol/L (21-31)
[2021-12-02 16:56] LABS: Oxygen Saturation ABG 85 % (95-100)
[2021-12-02 16:57] LABS: Fractionated Inspired Oxygen 35; PO2 ABG 54 mmHg (80-100)
--- NOTE | 2021-12-02 16:58 | PC.NURSE ---
pt more responsive at this time. Able to answer questions and follow directions
[2021-12-02] MEDS: NALOXONE 0.4 MG/ML VIAL 0.2 MG IV ×4 (17:11→18:50)
[2021-12-02] MEDS: cefTRIAXone 2,000 MG in SODIUM CHLORIDE 0.9% 100 ML 200 MG IV (18:23)
[2021-12-02] MEDS: VANCOMYCIN 1,250 MG/250 ML PIGGYBACK 250 MG IV (18:50)
[2021-12-02] MEDS: NALOXONE 2 MG in SODIUM CHLORIDE 0.9% 500 ML 62.5 MG IV (19:14)
[2021-12-02 19:19] LABS: Ammonia (NH3) 9 umol/L (9-30)
--- NOTE | 2021-12-02 20:12 | P.HP_ITS ---
History of Present Illness History of Present Illness Date Patient Seen: 12/02/21 Time Patient Seen: 20:00 Chief complaint: AMS Narrative: Rebekah Washington is a 51-year-old female of generalized anxiety disorder, major depressive disorder, alcohol dependence, peripheral neuropathy, obstructive sleep apnea, chronic back pain, GERD presented to the emergency department with altered mental status.? She is unable to provide a history as to why she was brought in. Patient was 70% on room air.? Patient responds to verbal stimuli she answers some questions but not all.? She denies chest pain.? She indicates that she is had some trouble breathing for the last day. Patient did seem to endorse that she drank some Poppy tea from plants in her yard which contained an opioid in an attempt to control her back pain. She stated positive for chest shortness of breath, nasal congestion, nausea and abdominal pain. She denies headache, chest pain, heart palpitations, vomiting, denies dysuria, diarrhea or constipation. She states she has chronic back pain due to a fracture she has had an 2 vertebrae she states secondary to osteoporosis. She is unable to tell me when the fracture occurred and under what circumstances. Patient was given 2 doses of Narcan and then decision was made to admit her to the ICU and put her on a Narcan drip after discussion with the it applications analyst. Because she had an elevated D-dimer they did a CT angiogram which only noted bilateral bibasilar consolidations and patchy ground-glass opacities improved over prior an possible component of superimposed CHF. Head and C-spine CT were both negative for any acute process. She is afebrile, blood pressure 92/59, heart rate 79, respiratory rate 17, oxygen saturation 94% on 2 L she weighs 62.5 kg with a BMI of 26.9. CBC is unremarkable, her D-dimer was 353, ABG pH was 7.3 ABG pCO2 was 49.5 PO2 was 54 bicarb 28 and ABG O2 saturation was 85% her sodium was 129 proBNP was 470 procalcitonin negative TSH H was within normal limits UA was negative for UTI urine toxicology was positive for opiates though THC was negative viral panel was negative including COVID-19 PCR. 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) Family & Social History Family History Grandmother Cancer Mental health problem Mother Age: 73 Mental health disorder Sister Age: 55 Heart disease Hypertension High cholesterol Mental health problem Asthma COPD (chronic obstructive pulmonary disease) Social History: household members spouse,family Safety & Behavioral: Feels Safe in Current Yes Environment Tobacco & Substance use: Tobacco type cigarettes Smoking Status Current every day smoker alcohol intake former alcohol intake frequency 3 or more drinks per day Substance Use Type does not use Meds Home Medications and Allergies Home Medications Medication Instructions Recorded Confirmed Type albuterol sulfate 90 mcg/actuation 2 puff inhalation Q4H PRN 12/30/17 08/22/21 Rx breath activated powder inhaler shortness of breath or wheezing #1 ea propranolol 20 mg tablet 20 mg PO BID #180 tabs 07/27/21 08/22/21 Rx risperidone 0.5 mg tablet 0.5 mg PO QPM 08/13/21 08/22/21 History baclofen 20 mg tablet 20 mg PO TID PRN Muscle Spasm 7 08/14/21 08/22/21 Rx days #20 tabs gabapentin 300 mg capsule 300 mg PO TID #90 caps 08/14/21 08/22/21 Rx mupirocin 2 % topical ointment 1 applic topical TID #15 grams 08/22/21 08/22/21 Rx escitalopram oxalate 20 mg tablet 20 mg PO DAILY #90 tabs 11/01/21 Rx hydroxyzine HCl 50 mg tablet 50 mg PO BID PRN anxiety #60 tabs 11/01/21 Rx clonazepam 0.5 mg tablet 0.5 mg PO BID PRN Anxiety #60 tabs 11/06/21 Rx ondansetron HCl 8 mg tablet 8 mg PO BID-TID PRN nausea and 11/29/21 Rx vomiting #90 tabs Allergies Allergy/AdvReac Type Severity Reaction Status Date / Time No Known Drug Allergies Allergy Verified 08/22/21 08:57 Review of Systems Review of Systems ROS: Yes All systems reviewed with the patient and are negative except as otherwise documented Exam Vital Signs (past 8 hours): - 12/02/21 15:27 12/02/21 15:27 12/02/21 15:30 Temperature Pulse Rate 119 H 116 H Respiratory Rate 25 H 29 H Blood Pressure 102/65 Pulse Oximetry 81 L 91 Oxygen Delivery Method Room Air Non -Rebreather Oxygen Flow Rate 12/02/21 15:31 12/02/21 15:31 12/02/21 15:34 Temperature Pulse Rate 115 H 113 H Respiratory Rate 23 23 Blood Pressure 104/70 Pulse Oximetry 92 98 Oxygen Delivery Method Non -Rebreather Oxygen Flow Rate 15 12/02/21 15:34 12/02/21 15:35 12/02/21 15:57 Temperature 98.6 F Pulse Rate 113 H Respiratory Rate 22 Blood Pressure 113/60 Pulse Oximetry 98 96 Oxygen Delivery Method Non -Rebreather Oxygen Flow Rate 12/02/21 15:39 12/02/21 15:39 12/02/21 15:40 Temperature Pulse Rate 113 H 112 H Respiratory Rate 23 18 Blood Pressure 122/64 Pulse Oximetry 98 98 Oxygen Delivery Method Oxygen Flow Rate 12/02/21 15:41 12/02/21 15:41 12/02/21 15:45 Temperature Pulse Rate 112 H 111 H Respiratory Rate 19 18 Blood Pressure 108/55 L Pulse Oximetry 98 98 Oxygen Delivery Method Oxygen Flow Rate 12/02/21 15:50 12/02/21 15:55 12/02/21 16:00 Temperature Pulse Rate 113 H 112 H 110 H Respiratory Rate 23 26 H 21 Blood Pressure Pulse Oximetry 97 88 L 88 L Oxygen Delivery Method Oxygen Flow Rate 12/02/21 16:01 12/02/21 16:01 12/02/21 16:02 Temperature Pulse Rate 112 H Respiratory Rate 25 H Blood Pressure 116/82 113/72 Pulse Oximetry 88 L Oxygen Delivery Method Oxygen Flow Rate 12/02/21 16:02 12/02/21 16:05 12/02/21 16:08 Temperature 99.9 F H Pulse Rate 111 H 109 H 109 H Respiratory Rate 35 H 35 H 34 H Blood Pressure Pulse Oximetry 89 L 90 L 91 Oxygen Delivery Method Nasal Cannula Nasal Cannula Oxygen Flow Rate 4 4 12/02/21 16:08 12/02/21 16:09 12/02/21 16:09 Temperature 100.9 F H Pulse Rate 109 H Respiratory Rate 25 H Blood Pressure 125/66 130/71 Pulse Oximetry 91 Oxygen Delivery Method Nasal Cannula Oxygen Flow Rate 4 12/02/21 16:10 12/02/21 16:11 12/02/21 16:11 Temperature 101.7 F H 102.2 F H Pulse Rate 109 H 109 H Respiratory Rate 20 21 Blood Pressure 124/68 Pulse Oximetry 91 87 L Oxygen Delivery Method Oxygen Flow Rate 12/02/21 16:15 12/02/21 16:15 12/02/21 16:20 Temperature 102.9 F H Pulse Rate 111 H 110 H Respiratory Rate 27 H Blood Pressure 125/67 Pulse Oximetry 94 Oxygen Delivery Method Oxygen Flow Rate 12/02/21 16:42 12/02/21 16:43 12/02/21 16:43 Temperature 102.9 F H 102.9 F H Pulse Rate 110 H Respiratory Rate Blood Pressure 130/69 Pulse Oximetry 74 L Oxygen Delivery Method Oxygen Flow Rate 12/02/21 16:45 12/02/21 16:45 12/02/21 16:54 Temperature 102.9 F H 102 F H Pulse Rate 109 H Respiratory Rate 14 Blood Pressure 126/66 Pulse Oximetry 99 Oxygen Delivery Method Oxygen Flow Rate 12/02/21 16:30 12/02/21 16:50 12/02/21 16:50 Temperature 102.9 F H Pulse Rate 101 H 109 H Respiratory Rate 16 23 Blood Pressure 138/77 Pulse Oximetry 99 100 Oxygen Delivery Method High Flow Nasal Cannula Oxygen Flow Rate 8 12/02/21 16:55 12/02/21 16:55 12/02/21 17:00 Temperature 102.9 F H Pulse Rate 109 H Respiratory Rate 14 Blood Pressure 138/79 139/70 Pulse Oximetry 100 Oxygen Delivery Method Oxygen Flow Rate 12/02/21 17:00 12/02/21 17:06 12/02/21 17:06 Temperature 102.9 F H 102.9 F H Pulse Rate 108 H 109 H Respiratory Rate Blood Pressure 149/64 H Pulse Oximetry 100 96 Oxygen Delivery Method Oxygen Flow Rate 12/02/21 17:11 12/02/21 17:11 12/02/21 17:15 Temperature 102.7 F H 102.7 F H Pulse Rate 136 H 113 H Respiratory Rate 34 H Blood Pressure 91/54 L Pulse Oximetry 97 99 Oxygen Delivery Method Oxygen Flow Rate 12/02/21 17:16 12/02/21 17:16 12/02/21 17:20 Temperature 102.7 F H 102.7 F H Pulse Rate 112 H 109 H Respiratory Rate Blood Pressure 140/91 H Pulse Oximetry 99 99 Oxygen Delivery Method Oxygen Flow Rate 12/02/21 17:20 12/02/21 17:26 12/02/21 17:26 Temperature 102.7 F H Pulse Rate 107 H Respiratory Rate Blood Pressure 121/78 132/71 Pulse Oximetry 98 Oxygen Delivery Method Oxygen Flow Rate 12/02/21 17:30 12/02/21 17:30 12/02/21 17:35 Temperature 102.7 F H 102.6 F H Pulse Rate 110 H 108 H Respiratory Rate Blood Pressure 119/64 Pulse Oximetry 100 97 Oxygen Delivery Method Oxygen Flow Rate 12/02/21 17:35 12/02/21 17:40 12/02/21 17:40 Temperature 102.6 F H Pulse Rate 105 H Respiratory Rate Blood Pressure 119/68 107/63 Pulse Oximetry 98 Oxygen Delivery Method Oxygen Flow Rate 12/02/21 17:45 12/02/21 17:45 12/02/21 17:50 Temperature 102.4 F H Pulse Rate 104 H Respiratory Rate Blood Pressure 105/57 L 103/56 L Pulse Oximetry 98 Oxygen Delivery Method Oxygen Flow Rate 12/02/21 17:50 12/02/21 17:55 12/02/21 17:55 Temperature 102.2 F H 102.2 F H Pulse Rate 102 H 101 H Respiratory Rate Blood Pressure 98/56 L Pulse Oximetry 98 99 Oxygen Delivery Method Oxygen Flow Rate 12/02/21 18:00 12/02/21 18:00 12/02/21 18:05 Temperature 102.0 F H 101.8 F H Pulse Rate 98 H 98 H Respiratory Rate Blood Pressure 97/56 L Pulse Oximetry 99 99 Oxygen Delivery Method Oxygen Flow Rate 12/02/21 18:05 12/02/21 18:11 12/02/21 18:10 Temperature 101.7 F H 101.8 F H Pulse Rate 97 H Respiratory Rate Blood Pressure 97/53 L Pulse Oximetry 98 Oxygen Delivery Method Oxygen Flow Rate 12/02/21 18:10 12/02/21 18:15 12/02/21 18:15 Temperature 101.7 F H Pulse Rate 97 H Respiratory Rate Blood Pressure 98/57 L 100/58 L Pulse Oximetry 98 Oxygen Delivery Method Oxygen Flow Rate 12/02/21 18:20 12/02/21 18:20 12/02/21 18:25 Temperature 101.5 F H 101.3 F H Pulse Rate 100 H 100 H Respiratory Rate Blood Pressure 105/61 Pulse Oximetry 99 99 Oxygen Delivery Method Oxygen Flow Rate 12/02/21 18:25 12/02/21 18:30 12/02/21 18:30 Temperature 101.1 F H Pulse Rate 99 H Respiratory Rate Blood Pressure 92/56 L 112/67 Pulse Oximetry 99 Oxygen Delivery Method Oxygen Flow Rate 12/02/21 18:35 12/02/21 18:35 12/02/21 18:40 Temperature 101.1 F H Pulse Rate 98 H Respiratory Rate Blood Pressure 111/64 103/59 L Pulse Oximetry 100 Oxygen Delivery Method Oxygen Flow Rate 12/02/21 18:40 12/02/21 18:45 12/02/21 18:45 Temperature 100.9 F H 100.9 F H Pulse Rate 98 H 97 H Respiratory Rate Blood Pressure 101/55 L Pulse Oximetry 99 98 Oxygen Delivery Method Oxygen Flow Rate 12/02/21 18:50 12/02/21 18:50 12/02/21 18:55 Temperature 100.8 F H 100.6 F H Pulse Rate 96 H 96 H Respiratory Rate Blood Pressure 108/62 Pulse Oximetry 98 100 Oxygen Delivery Method Oxygen Flow Rate 12/02/21 18:55 12/02/21 19:00 12/02/21 19:00 Temperature 100.6 F H Pulse Rate 94 H Respiratory Rate Blood Pressure 105/64 109/60 Pulse Oximetry 99 Oxygen Delivery Method Oxygen Flow Rate 12/02/21 19:05 12/02/21 19:05 12/02/21 19:10 Temperature 100.6 F H Pulse Rate 94 H Respiratory Rate Blood Pressure 104/61 99/59 L Pulse Oximetry 98 Oxygen Delivery Method Oxygen Flow Rate 12/02/21 19:10 12/02/21 19:15 12/02/21 19:15 Temperature 100.4 F H 100.4 F H Pulse Rate 93 H 93 H Respiratory Rate Blood Pressure 104/59 L Pulse Oximetry 98 98 Oxygen Delivery Method Oxygen Flow Rate 12/02/21 19:20 12/02/21 19:20 12/02/21 19:25 Temperature 100.2 F H 100.0 F H Pulse Rate 92 H 91 H Respiratory Rate Blood Pressure 107/59 L Pulse Oximetry 98 99 Oxygen Delivery Method Oxygen Flow Rate 12/02/21 19:25 12/02/21 19:30 12/02/21 19:30 Temperature 100.0 F H Pulse Rate 97 H Respiratory Rate Blood Pressure 111/64 127/81 Pulse Oximetry 96 Oxygen Delivery Method Oxygen Flow Rate Oxygen Delivery Method High Flow Nasal Cannula Oxygen Flow Rate 8 Narrative Exam Narrative: Gen: Alert, oriented, well-nourished ill appearing 51 y.o. female, lethargic HEENT: normocephalic, atraumatic, conjunctiva clear, sclera non-icteric, oral mucosa pink and moist Neck: supple, full ROM, no JVD, trachea is midline Resp: Lungs CTA, non-labored breathing CV: RRR, no murmur or rubs Abd: soft, non-tender, normoactive BTs Skin: no lesions or rashes, dry and intact Neuro: Alert and oriented X 4 w/no focal deficits. Speech clear and coherent. Extremities: moves all 4 extremities, is ambulatory, negative Migue?s sign Psyche: depressed affect. Objective Labs Result Diagrams: 12/02/21 15:30 12/02/21 15:30 Labs: Laboratory Results - last 24 hr 12/02/21 12/02/21 12/02/21 15:30 15:30 15:30 WBC 8.6 RBC 4.19 Hgb 13.3 Hct 38.8 MCV 92.7 MCH 31.9 MCHC 34.4 RDW 15.3 H Plt Count 232 Neut % (Auto) 76.4 H Lymph % (Auto) 17.6 L [place] % (Auto) 5.0 Eos % (Auto) 0.7 L Baso % (Auto) 0.3 Neut # (Auto) 6600 Lymph # (Auto) 1500 [place] # (Auto) 400 Eos # (Auto) 100 Baso # (Auto) 0 PT 10.7 INR 1.0 APTT D-Dimer 353 H ABG pH ABG pCO2 ABG pO2 ABG HCO3 ABG Total CO2 ABG O2 Saturation ABG Base Excess FiO2 Sodium Potassium Chloride Carbon Dioxide BUN Creatinine Estimated GFR BUN/Creatinine Ratio Glucose Lactate Calcium Total Bilirubin AST ALT Alkaline Phosphatase Ammonia Total Creatine Kinase CK-MB (CK-2) CK-MB (CK-2) Rel Index Troponin I NT-Pro-B Natriuret Pep Cancelled Total Protein Albumin Globulin Albumin/Globulin Ratio Procalcitonin TSH Urine Color Urine Appearance Urine pH Ur Specific [place] Urine Protein Urine Glucose (UA) Urine Ketones Urine Occult Blood Urine Nitrate Urine Bilirubin Urine Urobilinogen Ur Leukocyte Esterase Urine RBC Urine WBC Urine Bacteria Ur Culture Indicated? Salicylates U Opiates 300ng/mL cut Ur Oxycodone Screen Urine Methadone Screen Acetaminophen Ur Barbiturates Screen U Tricyclic Antidepress Ur Phencyclidine Scrn Ur Amphetamines Screen U Methamphetamines Scrn Ur MDMA Scrn (Ecstasy) U Benzodiazepines Scrn Urine Cocaine Screen U Marijuana (THC) Screen Ethyl Alcohol Chlamy pneumoniae PCR Adenovirus (PCR) B. pertussis DNA (PCR) B.parapertussis DNA PCR Coronavirus OC43 (PCR) Coronavirus HKU1 (PCR) Coronavirus 229E (PCR) SARS-CoV-2 (PCR) Coronavirus NL63 (PCR) Human Metapneumovir PCR Influenza Type A (PCR) Influenza Type B (PCR) M. pneumoniae (PCR) Parainfluenza 1 (PCR) Parainfluenza 2 (PCR) Parainfluenza 3 (PCR) Parainfluenza 4 (PCR) RSV (PCR) Entero/Rhino (PCR) 12/02/21 12/02/21 12/02/21 15:30 15:30 15:30 WBC RBC Hgb Hct MCV MCH MCHC RDW Plt Count Neut % (Auto) Lymph % (Auto) [place] % (Auto) Eos % (Auto) Baso % (Auto) Neut # (Auto) Lymph # (Auto) [place] # (Auto) Eos # (Auto) Baso # (Auto) PT INR APTT 37 H D D-Dimer ABG pH ABG pCO2 ABG pO2 ABG HCO3 ABG Total CO2 ABG O2 Saturation ABG Base Excess FiO2 Sodium 129 L Potassium 4.2 Chloride 98 Carbon Dioxide 26 BUN 4 L Creatinine 0.63 Estimated GFR > 60 BUN/Creatinine Ratio 6.3 Glucose 85 Lactate 2.0 Calcium 8.5 Total Bilirubin 0.3 AST 25 ALT 9 Alkaline Phosphatase 81 Ammonia Total Creatine Kinase 257 H CK-MB (CK-2) 1.99 CK-MB (CK-2) Rel Index 0.8 L Troponin I < 0.012 NT-Pro-B Natriuret Pep 470 H Total Protein 6.1 L Albumin 3.4 L Globulin 2.7 Albumin/Globulin Ratio 1.3 Procalcitonin 0.04 TSH Urine Color Urine Appearance Urine pH Ur Specific [place] Urine Protein Urine Glucose (UA) Urine Ketones Urine Occult Blood Urine Nitrate Urine Bilirubin Urine Urobilinogen Ur Leukocyte Esterase Urine RBC Urine WBC Urine Bacteria Ur Culture Indicated? Salicylates U Opiates 300ng/mL cut Ur Oxycodone Screen Urine Methadone Screen Acetaminophen Ur Barbiturates Screen U Tricyclic Antidepress Ur Phencyclidine Scrn Ur Amphetamines Screen U Methamphetamines Scrn Ur MDMA Scrn (Ecstasy) U Benzodiazepines Scrn Urine Cocaine Screen U Marijuana (THC) Screen Ethyl Alcohol Chlamy pneumoniae PCR Adenovirus (PCR) B. pertussis DNA (PCR) B.parapertussis DNA PCR Coronavirus OC43 (PCR) Coronavirus HKU1 (PCR) Coronavirus 229E (PCR) SARS-CoV-2 (PCR) Coronavirus NL63 (PCR) Human Metapneumovir PCR Influenza Type A (PCR) Influenza Type B (PCR) M. pneumoniae (PCR) Parainfluenza 1 (PCR) Parainfluenza 2 (PCR) Parainfluenza 3 (PCR) Parainfluenza 4 (PCR) RSV (PCR) Entero/Rhino (PCR) 12/02/21 12/02/21 12/02/21 15:30 15:30 15:30 WBC RBC Hgb Hct MCV MCH MCHC RDW Plt Count Neut % (Auto) Lymph % (Auto) [place] % (Auto) Eos % (Auto) Baso % (Auto) Neut # (Auto) Lymph # (Auto) [place] # (Auto) Eos # (Auto) Baso # (Auto) PT INR APTT D-Dimer ABG pH ABG pCO2 ABG pO2 ABG HCO3 ABG Total CO2 ABG O2 Saturation ABG Base Excess FiO2 Sodium Potassium Chloride Carbon Dioxide BUN Creatinine Estimated GFR BUN/Creatinine Ratio Glucose Lactate Calcium Total Bilirubin AST ALT Alkaline Phosphatase Ammonia Total Creatine Kinase CK-MB (CK-2) CK-MB (CK-2) Rel Index Troponin I NT-Pro-B Natriuret Pep Total Protein Albumin Globulin Albumin/Globulin Ratio Procalcitonin TSH 2.32 Urine Color Urine Appearance Urine pH Ur Specific [place] Urine Protein Urine Glucose (UA) Urine Ketones Urine Occult Blood Urine Nitrate Urine Bilirubin Urine Urobilinogen Ur Leukocyte Esterase Urine RBC Urine WBC Urine Bacteria Ur Culture Indicated? Salicylates < 1.0 U Opiates 300ng/mL cut Ur Oxycodone Screen Urine Methadone Screen Acetaminophen < 10 Ur Barbiturates Screen U Tricyclic Antidepress Ur Phencyclidine Scrn Ur Amphetamines Screen U Methamphetamines Scrn Ur MDMA Scrn (Ecstasy) U Benzodiazepines Scrn Urine Cocaine Screen U Marijuana (THC) Screen Ethyl Alcohol < 10 Chlamy pneumoniae PCR Adenovirus (PCR) B. pertussis DNA (PCR) B.parapertussis DNA PCR Coronavirus OC43 (PCR) Coronavirus HKU1 (PCR) Coronavirus 229E (PCR) SARS-CoV-2 (PCR) Negative Coronavirus NL63 (PCR) Human Metapneumovir PCR Influenza Type A (PCR) Influenza Type B (PCR) M. pneumoniae (PCR) Parainfluenza 1 (PCR) Parainfluenza 2 (PCR) Parainfluenza 3 (PCR) Parainfluenza 4 (PCR) RSV (PCR) Entero/Rhino (PCR) 12/02/21 12/02/21 12/02/21 15:30 16:00 16:08 WBC RBC Hgb Hct MCV MCH MCHC RDW Plt Count Neut % (Auto) Lymph % (Auto) [place] % (Auto) Eos % (Auto) Baso % (Auto) Neut # (Auto) Lymph # (Auto) [place] # (Auto) Eos # (Auto) Baso # (Auto) PT INR APTT D-Dimer ABG pH 7.36 ABG pCO2 49.5 H ABG pO2 54 L ABG HCO3 28 H ABG Total CO2 29 ABG O2 Saturation 85 L* ABG Base Excess 2.0 FiO2 35 Sodium Potassium Chloride Carbon Dioxide BUN Creatinine Estimated GFR BUN/Creatinine Ratio Glucose Lactate Calcium Total Bilirubin AST ALT Alkaline Phosphatase Ammonia Total Creatine Kinase CK-MB (CK-2) CK-MB (CK-2) Rel Index Troponin I NT-Pro-B Natriuret Pep Total Protein Albumin Globulin Albumin/Globulin Ratio Procalcitonin TSH Urine Color Yellow Urine Appearance Clear Urine pH 6.0 Ur Specific [place] <=1.005 Urine Protein Negative Urine Glucose (UA) Negative Urine Ketones Negative Urine Occult Blood Negative Urine Nitrate Negative Urine Bilirubin Negative Urine Urobilinogen 0.2 Ur Leukocyte Esterase Negative Urine RBC None seen Urine WBC 0-1/hpf Urine Bacteria None seen Ur Culture Indicated? Culture not indicate Salicylates U Opiates 300ng/mL cut Ur Oxycodone Screen Urine Methadone Screen Acetaminophen Ur Barbiturates Screen U Tricyclic Antidepress Ur Phencyclidine Scrn Ur Amphetamines Screen U Methamphetamines Scrn Ur MDMA Scrn (Ecstasy) U Benzodiazepines Scrn Urine Cocaine Screen U Marijuana (THC) Screen Ethyl Alcohol Chlamy pneumoniae PCR Not detected Adenovirus (PCR) Not detected B. pertussis DNA (PCR) Not detected B.parapertussis DNA PCR Not detected Coronavirus OC43 (PCR) Not detected Coronavirus HKU1 (PCR) Not detected Coronavirus 229E (PCR) Not detected SARS-CoV-2 (PCR) Not detected Coronavirus NL63 (PCR) Not detected Human Metapneumovir PCR Not detected Influenza Type A (PCR) Not detected Influenza Type B (PCR) Not detected M. pneumoniae (PCR) Not detected Parainfluenza 1 (PCR) Not detected Parainfluenza 2 (PCR) Not detected Parainfluenza 3 (PCR) Not detected Parainfluenza 4 (PCR) Not detected RSV (PCR) Not detected Entero/Rhino (PCR) Not detected 12/02/21 12/02/21 16:08 19:00 WBC RBC Hgb Hct MCV MCH MCHC RDW Plt Count Neut % (Auto) Lymph % (Auto) [place] % (Auto) Eos % (Auto) Baso % (Auto) Neut # (Auto) Lymph # (Auto) [place] # (Auto) Eos # (Auto) Baso # (Auto) PT INR APTT D-Dimer ABG pH ABG pCO2 ABG pO2 ABG HCO3 ABG Total CO2 ABG O2 Saturation ABG Base Excess FiO2 Sodium Potassium Chloride Carbon Dioxide BUN Creatinine Estimated GFR BUN/Creatinine Ratio Glucose Lactate Calcium Total Bilirubin AST ALT Alkaline Phosphatase Ammonia 9 Total Creatine Kinase CK-MB (CK-2) CK-MB (CK-2) Rel Index Troponin I NT-Pro-B Natriuret Pep Total Protein Albumin Globulin Albumin/Globulin Ratio Procalcitonin TSH Urine Color Urine Appearance Urine pH Ur Specific [place] Urine Protein Urine Glucose (UA) Urine Ketones Urine Occult Blood Urine Nitrate Urine Bilirubin Urine Urobilinogen Ur Leukocyte Esterase Urine RBC Urine WBC Urine Bacteria Ur Culture Indicated? Salicylates U Opiates 300ng/mL cut Positive H Ur Oxycodone Screen Negative Urine Methadone Screen Negative Acetaminophen Ur Barbiturates Screen Negative U Tricyclic Antidepress Negative Ur Phencyclidine Scrn Negative Ur Amphetamines Screen Negative U Methamphetamines Scrn Negative Ur MDMA Scrn (Ecstasy) Negative U Benzodiazepines Scrn Negative Urine Cocaine Screen Negative U Marijuana (THC) Screen Negative Ethyl Alcohol Chlamy pneumoniae PCR Adenovirus (PCR) B. pertussis DNA (PCR) B.parapertussis DNA PCR Coronavirus OC43 (PCR) Coronavirus HKU1 (PCR) Coronavirus 229E (PCR) SARS-CoV-2 (PCR) Coronavirus NL63 (PCR) Human Metapneumovir PCR Influenza Type A (PCR) Influenza Type B (PCR) M. pneumoniae (PCR) Parainfluenza 1 (PCR) Parainfluenza 2 (PCR) Parainfluenza 3 (PCR) Parainfluenza 4 (PCR) RSV (PCR) Entero/Rhino (PCR) Assessment & Plan Assessment & Plan narrative: Rebekah Washington is admitted to the ICU on a narcan drip which will be tapered overnight. Probable opioid overdose, acute, present on admission * [facility] ICU is involved in her care, appreciated * They will attempt to transition her off the drip overnight * [facility] protocol in the case of alcohol withdrawal * She has been receiving prescriptions from Dr. Gomez, psychiatry and will request psychiatric consult for this patient on Saturday Toxic metabolic encephalopathy with hypoxia secondary to opiate overdose * Continue to monitor renal and hepatic function BMP and liver enzymes in the morning Pneumonia, acute, likely community acquired * She was given a loading dose of ceftriaxone 2 g in the ED and will start ceftriaxone 1 g tomorrow, azithromycin 500 mg IV daily likely transition to p.o. in the morning Chronic back pain * Patient states she has has 2 vertebral fractures and her low back and has not been able access pain management through her PCP * She will need close follow-up on discharge VTE Prophylaxis: Wells risk score 1.5 Enoxaparin 40 mg subQ once daily Bilateral SCDs Patient is admitted to the inpatient service due to the severity of disease, ris ks of further disease progression and this stay is expected to exceed 2 midnights. FEN: IV fluids: Saline lock, diet: General, labs: CBC, C/BMP, liver enzymes, Mag, PT/INR Consultants intercept ICU care and involvement in the patient?s care is appreciated. Dispo: Unknown at this time Code status: Full code as discussed with the patient who identifies , Vick as her surrogate and POA. [X] I have utilized all available immediate resources to obtain, update, or review of the patient's current medications COVID-19 COVID-19 status: Negative Result date/Date tested (Pos, Neg/Pending): 12/02/21 Scores Wells' Criteria for PE Clinical signs and symptoms of DVT: No PE is #1 Dx or equally likely: No Heart rate > 100: No Immobilization at least 3 days or surg in previous 4 weeks: Yes History of PE or DVT: No Hemoptysis: No Malignancy w/Treatment within 6 months or palliative: No Wells' PE Score total: 1.5 Quality VTE Deep Vein Thrombosis/Pulmonary Embolism Present on Admission: No MIPS - Admit I confirm the patient?s Advance Care Plan is present, Code status is documented, Surrogate decision maker is in patient?s record [If Yes, STOP here]: Yes MIPS - DC The patient has current or prior documentation of left ventricular ejection fraction (LVEF) less than 40%, or moderate or severely depressed left ventricular systolic function.: No
--- NOTE | 2021-12-02 20:30 | P.TELICUCN_ITS ---
History of Present Illness Consult details Chief complaint: AMS Narrative: Patient with significant history of GERD, IBS, and FLORIN who was brought in spouse for altered mental status. Per spouse, patient drank some poppy tea last night and has not been herself since. In ER, she was found to be hypoxemia on room air and placed on 5 liters NC. Uto positive for opioids. CT chest showed bibasilar consolidation with diffuse GGO. Started on narcan infusion with improvement in mentation. Admitted to ICU for further management. 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) Family History Grandmother Cancer Mental health problem Mother Age: 73 Mental health disorder Sister Age: 55 Heart disease Hypertension High cholesterol Mental health problem Asthma COPD (chronic obstructive pulmonary disease) Social History household members: spouse and family Smoking Status: Current every day smoker Tobacco: How many years used: 10 second hand exposure: No alcohol intake: former substance use type: does not use Current Medications Current Medications Medications: Home Medications albuterol sulfate 90 mcg/actuation breath activated powder inhaler 2 puff inhalation Q4H PRN shortness of breath or wheezing #1 ea 12/30/17 [Rx Confirmed 08/22/21] propranolol 20 mg tablet 20 mg PO BID #180 tabs 07/27/21 [Rx Confirmed 08/22/21] risperidone 0.5 mg tablet 0.5 mg PO QPM 08/13/21 [History Confirmed 08/22/21] baclofen 20 mg tablet 20 mg PO TID PRN Muscle Spasm 7 days #20 tabs 08/14/21 [Rx Confirmed 08/22/21] gabapentin 300 mg capsule 300 mg PO TID #90 caps 08/14/21 [Rx Confirmed 08/22/21] mupirocin 2 % topical ointment 1 applic topical TID #15 grams 08/22/21 [Rx Confirmed 08/22/21] escitalopram oxalate 20 mg tablet 20 mg PO DAILY #90 tabs 11/01/21 [Rx] hydroxyzine HCl 50 mg tablet 50 mg PO BID PRN anxiety #60 tabs 11/01/21 [Rx] clonazepam 0.5 mg tablet 0.5 mg PO BID PRN Anxiety #60 tabs 11/06/21 [Rx] ondansetron HCl 8 mg tablet 8 mg PO BID-TID PRN nausea and vomiting #90 tabs 11/29/21 [Rx] Visit Medications (administered) Generic Name Dose Route Start Last Admin Trade Name Freq PRN Reason Stop Dose Admin Naloxone HCl 2 mg/ Sodium 500 mls @ 62.5 mls/hr 12/02/21 19:00 12/02/21 19:53 Chloride IV 0.25 mg/hr TITRATE MIMI 62.5 mls/hr Infusion 0.25 MG/HR Naloxone HCl 0.2 mg 12/02/21 17:31 12/02/21 18:50 Naloxone 0.4 Mg/Ml Vial IV 0.2 mg Q2MIN PRN Administration Opiate Reversal Exam Vital Signs (past 8 hours): - 12/02/21 15:27 12/02/21 15:27 12/02/21 15:30 Temperature Pulse Rate 119 H 116 H Respiratory Rate 25 H 29 H Blood Pressure 102/65 Pulse Oximetry 81 L 91 Oxygen Delivery Method Room Air Non -Rebreather Oxygen Flow Rate 15 12/02/21 15:31 12/02/21 15:31 12/02/21 15:34 Temperature Pulse Rate 115 H 113 H Respiratory Rate 23 23 Blood Pressure 104/70 Pulse Oximetry 92 98 Oxygen Delivery Method Non -Rebreather Oxygen Flow Rate 12/02/21 15:34 12/02/21 15:35 12/02/21 15:57 Temperature 98.6 F Pulse Rate 113 H Respiratory Rate 22 Blood Pressure 113/60 Pulse Oximetry 98 96 Oxygen Delivery Method Non -Rebreather Oxygen Flow Rate 15 12/02/21 15:39 12/02/21 15:39 12/02/21 15:40 Temperature Pulse Rate 113 H 112 H Respiratory Rate 23 18 Blood Pressure 122/64 Pulse Oximetry 98 98 Oxygen Delivery Method Oxygen Flow Rate 12/02/21 15:41 12/02/21 15:41 12/02/21 15:45 Temperature Pulse Rate 112 H 111 H Respiratory Rate 19 18 Blood Pressure 108/55 L Pulse Oximetry 98 98 Oxygen Delivery Method Oxygen Flow Rate 12/02/21 15:50 12/02/21 15:55 12/02/21 16:00 Temperature Pulse Rate 113 H 112 H 110 H Respiratory Rate 23 26 H 21 Blood Pressure Pulse Oximetry 97 88 L 88 L Oxygen Delivery Method Oxygen Flow Rate 12/02/21 16:01 12/02/21 16:01 12/02/21 16:02 Temperature Pulse Rate 112 H Respiratory Rate 25 H Blood Pressure 116/82 113/72 Pulse Oximetry 88 L Oxygen Delivery Method Oxygen Flow Rate 12/02/21 16:02 12/02/21 16:05 12/02/21 16:08 Temperature 99.9 F H Pulse Rate 111 H 109 H 109 H Respiratory Rate 35 H 35 H 34 H Blood Pressure Pulse Oximetry 89 L 90 L 91 Oxygen Delivery Method Nasal Cannula Nasal Cannula Oxygen Flow Rate 4 4 12/02/21 16:08 12/02/21 16:09 12/02/21 16:09 Temperature 100.9 F H Pulse Rate 109 H Respiratory Rate 25 H Blood Pressure 125/66 130/71 Pulse Oximetry 91 Oxygen Delivery Method Nasal Cannula Oxygen Flow Rate 4 12/02/21 16:10 12/02/21 16:11 12/02/21 16:11 Temperature 101.7 F H 102.2 F H Pulse Rate 109 H 109 H Respiratory Rate 20 21 Blood Pressure 124/68 Pulse Oximetry 91 87 L Oxygen Delivery Method Oxygen Flow Rate 12/02/21 16:15 12/02/21 16:15 12/02/21 16:20 Temperature 102.9 F H Pulse Rate 111 H 110 H Respiratory Rate 27 H Blood Pressure 125/67 Pulse Oximetry 94 Oxygen Delivery Method Oxygen Flow Rate 12/02/21 16:42 12/02/21 16:43 12/02/21 16:43 Temperature 102.9 F H 102.9 F H Pulse Rate 110 H Respiratory Rate Blood Pressure 130/69 Pulse Oximetry 74 L Oxygen Delivery Method Oxygen Flow Rate 12/02/21 16:45 12/02/21 16:45 12/02/21 16:54 Temperature 102.9 F H 102 F H Pulse Rate 109 H Respiratory Rate 14 Blood Pressure 126/66 Pulse Oximetry 99 Oxygen Delivery Method Oxygen Flow Rate 12/02/21 16:30 12/02/21 16:50 12/02/21 16:50 Temperature 102.9 F H Pulse Rate 101 H 109 H Respiratory Rate 16 23 Blood Pressure 138/77 Pulse Oximetry 99 100 Oxygen Delivery Method High Flow Nasal Cannula Oxygen Flow Rate 8 12/02/21 16:55 12/02/21 16:55 12/02/21 17:00 Temperature 102.9 F H Pulse Rate 109 H Respiratory Rate 14 Blood Pressure 138/79 139/70 Pulse Oximetry 100 Oxygen Delivery Method Oxygen Flow Rate 12/02/21 17:00 12/02/21 17:06 12/02/21 17:06 Temperature 102.9 F H 102.9 F H Pulse Rate 108 H 109 H Respiratory Rate Blood Pressure 149/64 H Pulse Oximetry 100 96 Oxygen Delivery Method Oxygen Flow Rate 12/02/21 17:11 12/02/21 17:11 12/02/21 17:15 Temperature 102.7 F H 102.7 F H Pulse Rate 136 H 113 H Respiratory Rate 34 H Blood Pressure 91/54 L Pulse Oximetry 97 99 Oxygen Delivery Method Oxygen Flow Rate 12/02/21 17:16 12/02/21 17:16 12/02/21 17:20 Temperature 102.7 F H 102.7 F H Pulse Rate 112 H 109 H Respiratory Rate Blood Pressure 140/91 H Pulse Oximetry 99 99 Oxygen Delivery Method Oxygen Flow Rate 12/02/21 17:20 12/02/21 17:26 12/02/21 17:26 Temperature 102.7 F H Pulse Rate 107 H Respiratory Rate Blood Pressure 121/78 132/71 Pulse Oximetry 98 Oxygen Delivery Method Oxygen Flow Rate 12/02/21 17:30 12/02/21 17:30 12/02/21 17:35 Temperature 102.7 F H 102.6 F H Pulse Rate 110 H 108 H Respiratory Rate Blood Pressure 119/64 Pulse Oximetry 100 97 Oxygen Delivery Method Oxygen Flow Rate 12/02/21 17:35 12/02/21 17:40 12/02/21 17:40 Temperature 102.6 F H Pulse Rate 105 H Respiratory Rate Blood Pressure 119/68 107/63 Pulse Oximetry 98 Oxygen Delivery Method Oxygen Flow Rate 12/02/21 17:45 12/02/21 17:45 12/02/21 17:50 Temperature 102.4 F H Pulse Rate 104 H Respiratory Rate Blood Pressure 105/57 L 103/56 L Pulse Oximetry 98 Oxygen Delivery Method Oxygen Flow Rate 12/02/21 17:50 12/02/21 17:55 12/02/21 17:55 Temperature 102.2 F H 102.2 F H Pulse Rate 102 H 101 H Respiratory Rate Blood Pressure 98/56 L Pulse Oximetry 98 99 Oxygen Delivery Method Oxygen Flow Rate 12/02/21 18:00 12/02/21 18:00 12/02/21 18:05 Temperature 102.0 F H 101.8 F H Pulse Rate 98 H 98 H Respiratory Rate Blood Pressure 97/56 L Pulse Oximetry 99 99 Oxygen Delivery Method Oxygen Flow Rate 12/02/21 18:05 12/02/21 18:11 12/02/21 18:10 Temperature 101.7 F H 101.8 F H Pulse Rate 97 H Respiratory Rate Blood Pressure 97/53 L Pulse Oximetry 98 Oxygen Delivery Method Oxygen Flow Rate 12/02/21 18:10 12/02/21 18:15 12/02/21 18:15 Temperature 101.7 F H Pulse Rate 97 H Respiratory Rate Blood Pressure 98/57 L 100/58 L Pulse Oximetry 98 Oxygen Delivery Method Oxygen Flow Rate 12/02/21 18:20 12/02/21 18:20 12/02/21 18:25 Temperature 101.5 F H 101.3 F H Pulse Rate 100 H 100 H Respiratory Rate Blood Pressure 105/61 Pulse Oximetry 99 99 Oxygen Delivery Method Oxygen Flow Rate 12/02/21 18:25 12/02/21 18:30 12/02/21 18:30 Temperature 101.1 F H Pulse Rate 99 H Respiratory Rate Blood Pressure 92/56 L 112/67 Pulse Oximetry 99 Oxygen Delivery Method Oxygen Flow Rate 12/02/21 18:35 12/02/21 18:35 12/02/21 18:40 Temperature 101.1 F H Pulse Rate 98 H Respiratory Rate Blood Pressure 111/64 103/59 L Pulse Oximetry 100 Oxygen Delivery Method Oxygen Flow Rate 12/02/21 18:40 12/02/21 18:45 12/02/21 18:45 Temperature 100.9 F H 100.9 F H Pulse Rate 98 H 97 H Respiratory Rate Blood Pressure 101/55 L Pulse Oximetry 99 98 Oxygen Delivery Method Oxygen Flow Rate 12/02/21 18:50 12/02/21 18:50 12/02/21 18:55 Temperature 100.8 F H 100.6 F H Pulse Rate 96 H 96 H Respiratory Rate Blood Pressure 108/62 Pulse Oximetry 98 100 Oxygen Delivery Method Oxygen Flow Rate 12/02/21 18:55 12/02/21 19:00 12/02/21 19:00 Temperature 100.6 F H Pulse Rate 94 H Respiratory Rate Blood Pressure 105/64 109/60 Pulse Oximetry 99 Oxygen Delivery Method Oxygen Flow Rate 12/02/21 19:05 12/02/21 19:05 12/02/21 19:10 Temperature 100.6 F H Pulse Rate 94 H Respiratory Rate Blood Pressure 104/61 99/59 L Pulse Oximetry 98 Oxygen Delivery Method Oxygen Flow Rate 12/02/21 19:10 12/02/21 19:15 12/02/21 19:15 Temperature 100.4 F H 100.4 F H Pulse Rate 93 H 93 H Respiratory Rate Blood Pressure 104/59 L Pulse Oximetry 98 98 Oxygen Delivery Method Oxygen Flow Rate 12/02/21 19:20 12/02/21 19:20 12/02/21 19:25 Temperature 100.2 F H 100.0 F H Pulse Rate 92 H 91 H Respiratory Rate Blood Pressure 107/59 L Pulse Oximetry 98 99 Oxygen Delivery Method Oxygen Flow Rate 12/02/21 19:25 12/02/21 19:30 12/02/21 19:30 Temperature 100.0 F H Pulse Rate 97 H Respiratory Rate Blood Pressure 111/64 127/81 Pulse Oximetry 96 Oxygen Delivery Method Oxygen Flow Rate 12/02/21 20:20 Temperature 100.2 F H Pulse Rate 86 Respiratory Rate 19 Blood Pressure Pulse Oximetry 94 Oxygen Delivery Method Oxygen Flow Rate Oxygen Delivery Method High Flow Nasal Cannula Oxygen Flow Rate 8 Objective Labs Result Diagrams: 12/02/21 15:30 12/02/21 15:30 Labs: Laboratory Results - last 24 hr 12/02/21 12/02/21 12/02/21 15:30 15:30 15:30 WBC 8.6 RBC 4.19 Hgb 13.3 Hct 38.8 MCV 92.7 MCH 31.9 MCHC 34.4 RDW 15.3 H Plt Count 232 Neut % (Auto) 76.4 H Lymph % (Auto) 17.6 L [place] % (Auto) 5.0 Eos % (Auto) 0.7 L Baso % (Auto) 0.3 Neut # (Auto) 6600 Lymph # (Auto) 1500 [place] # (Auto) 400 Eos # (Auto) 100 Baso # (Auto) 0 PT 10.7 INR 1.0 APTT D-Dimer 353 H ABG pH ABG pCO2 ABG pO2 ABG HCO3 ABG Total CO2 ABG O2 Saturation ABG Base Excess FiO2 Sodium Potassium Chloride Carbon Dioxide BUN Creatinine Estimated GFR BUN/Creatinine Ratio Glucose Lactate Calcium Total Bilirubin AST ALT Alkaline Phosphatase Ammonia Total Creatine Kinase CK-MB (CK-2) CK-MB (CK-2) Rel Index Troponin I NT-Pro-B Natriuret Pep Cancelled Total Protein Albumin Globulin Albumin/Globulin Ratio Procalcitonin TSH Urine Color Urine Appearance Urine pH Ur Specific [place] Urine Protein Urine Glucose (UA) Urine Ketones Urine Occult Blood Urine Nitrate Urine Bilirubin Urine Urobilinogen Ur Leukocyte Esterase Urine RBC Urine WBC Urine Bacteria Ur Culture Indicated? Salicylates U Opiates 300ng/mL cut Ur Oxycodone Screen Urine Methadone Screen Acetaminophen Ur Barbiturates Screen U Tricyclic Antidepress Ur Phencyclidine Scrn Ur Amphetamines Screen U Methamphetamines Scrn Ur MDMA Scrn (Ecstasy) U Benzodiazepines Scrn Urine Cocaine Screen U Marijuana (THC) Screen Ethyl Alcohol Chlamy pneumoniae PCR Adenovirus (PCR) B. pertussis DNA (PCR) B.parapertussis DNA PCR Coronavirus OC43 (PCR) Coronavirus HKU1 (PCR) Coronavirus 229E (PCR) SARS-CoV-2 (PCR) Coronavirus NL63 (PCR) Human Metapneumovir PCR Influenza Type A (PCR) Influenza Type B (PCR) M. pneumoniae (PCR) Parainfluenza 1 (PCR) Parainfluenza 2 (PCR) Parainfluenza 3 (PCR) Parainfluenza 4 (PCR) RSV (PCR) Entero/Rhino (PCR) 12/02/21 12/02/21 12/02/21 15:30 15:30 15:30 WBC RBC Hgb Hct MCV MCH MCHC RDW Plt Count Neut % (Auto) Lymph % (Auto) [place] % (Auto) Eos % (Auto) Baso % (Auto) Neut # (Auto) Lymph # (Auto) [place] # (Auto) Eos # (Auto) Baso # (Auto) PT INR APTT 37 H D D-Dimer ABG pH ABG pCO2 ABG pO2 ABG HCO3 ABG Total CO2 ABG O2 Saturation ABG Base Excess FiO2 Sodium 129 L Potassium 4.2 Chloride 98 Carbon Dioxide 26 BUN 4 L Creatinine 0.63 Estimated GFR > 60 BUN/Creatinine Ratio 6.3 Glucose 85 Lactate 2.0 Calcium 8.5 Total Bilirubin 0.3 AST 25 ALT 9 Alkaline Phosphatase 81 Ammonia Total Creatine Kinase 257 H CK-MB (CK-2) 1.99 CK-MB (CK-2) Rel Index 0.8 L Troponin I < 0.012 NT-Pro-B Natriuret Pep 470 H Total Protein 6.1 L Albumin 3.4 L Globulin 2.7 Albumin/Globulin Ratio 1.3 Procalcitonin 0.04 TSH Urine Color Urine Appearance Urine pH Ur Specific [place] Urine Protein Urine Glucose (UA) Urine Ketones Urine Occult Blood Urine Nitrate Urine Bilirubin Urine Urobilinogen Ur Leukocyte Esterase Urine RBC Urine WBC Urine Bacteria Ur Culture Indicated? Salicylates U Opiates 300ng/mL cut Ur Oxycodone Screen Urine Methadone Screen Acetaminophen Ur Barbiturates Screen U Tricyclic Antidepress Ur Phencyclidine Scrn Ur Amphetamines Screen U Methamphetamines Scrn Ur MDMA Scrn (Ecstasy) U Benzodiazepines Scrn Urine Cocaine Screen U Marijuana (THC) Screen Ethyl Alcohol Chlamy pneumoniae PCR Adenovirus (PCR) B. pertussis DNA (PCR) B.parapertussis DNA PCR Coronavirus OC43 (PCR) Coronavirus HKU1 (PCR) Coronavirus 229E (PCR) SARS-CoV-2 (PCR) Coronavirus NL63 (PCR) Human Metapneumovir PCR Influenza Type A (PCR) Influenza Type B (PCR) M. pneumoniae (PCR) Parainfluenza 1 (PCR) Parainfluenza 2 (PCR) Parainfluenza 3 (PCR) Parainfluenza 4 (PCR) RSV (PCR) Entero/Rhino (PCR) 12/02/21 12/02/21 12/02/21 15:30 15:30 15:30 WBC RBC Hgb Hct MCV MCH MCHC RDW Plt Count Neut % (Auto) Lymph % (Auto) [place] % (Auto) Eos % (Auto) Baso % (Auto) Neut # (Auto) Lymph # (Auto) [place] # (Auto) Eos # (Auto) Baso # (Auto) PT INR APTT D-Dimer ABG pH ABG pCO2 ABG pO2 ABG HCO3 ABG Total CO2 ABG O2 Saturation ABG Base Excess FiO2 Sodium Potassium Chloride Carbon Dioxide BUN Creatinine Estimated GFR BUN/Creatinine Ratio Glucose Lactate Calcium Total Bilirubin AST ALT Alkaline Phosphatase Ammonia Total Creatine Kinase CK-MB (CK-2) CK-MB (CK-2) Rel Index Troponin I NT-Pro-B Natriuret Pep Total Protein Albumin Globulin Albumin/Globulin Ratio Procalcitonin TSH 2.32 Urine Color Urine Appearance Urine pH Ur Specific [place] Urine Protein Urine Glucose (UA) Urine Ketones Urine Occult Blood Urine Nitrate Urine Bilirubin Urine Urobilinogen Ur Leukocyte Esterase Urine RBC Urine WBC Urine Bacteria Ur Culture Indicated? Salicylates < 1.0 U Opiates 300ng/mL cut Ur Oxycodone Screen Urine Methadone Screen Acetaminophen < 10 Ur Barbiturates Screen U Tricyclic Antidepress Ur Phencyclidine Scrn Ur Amphetamines Screen U Methamphetamines Scrn Ur MDMA Scrn (Ecstasy) U Benzodiazepines Scrn Urine Cocaine Screen U Marijuana (THC) Screen Ethyl Alcohol < 10 Chlamy pneumoniae PCR Adenovirus (PCR) B. pertussis DNA (PCR) B.parapertussis DNA PCR Coronavirus OC43 (PCR) Coronavirus HKU1 (PCR) Coronavirus 229E (PCR) SARS-CoV-2 (PCR) Negative Coronavirus NL63 (PCR) Human Metapneumovir PCR Influenza Type A (PCR) Influenza Type B (PCR) M. pneumoniae (PCR) Parainfluenza 1 (PCR) Parainfluenza 2 (PCR) Parainfluenza 3 (PCR) Parainfluenza 4 (PCR) RSV (PCR) Entero/Rhino (PCR) 12/02/21 12/02/21 12/02/21 15:30 16:00 16:08 WBC RBC Hgb Hct MCV MCH MCHC RDW Plt Count Neut % (Auto) Lymph % (Auto) [place] % (Auto) Eos % (Auto) Baso % (Auto) Neut # (Auto) Lymph # (Auto) [place] # (Auto) Eos # (Auto) Baso # (Auto) PT INR APTT D-Dimer ABG pH 7.36 ABG pCO2 49.5 H ABG pO2 54 L ABG HCO3 28 H ABG Total CO2 29 ABG O2 Saturation 85 L* ABG Base Excess 2.0 FiO2 35 Sodium Potassium Chloride Carbon Dioxide BUN Creatinine Estimated GFR BUN/Creatinine Ratio Glucose Lactate Calcium Total Bilirubin AST ALT Alkaline Phosphatase Ammonia Total Creatine Kinase CK-MB (CK-2) CK-MB (CK-2) Rel Index Troponin I NT-Pro-B Natriuret Pep Total Protein Albumin Globulin Albumin/Globulin Ratio Procalcitonin TSH Urine Color Yellow Urine Appearance Clear Urine pH 6.0 Ur Specific [place] <=1.005 Urine Protein Negative Urine Glucose (UA) Negative Urine Ketones Negative Urine Occult Blood Negative Urine Nitrate Negative Urine Bilirubin Negative Urine Urobilinogen 0.2 Ur Leukocyte Esterase Negative Urine RBC None seen Urine WBC 0-1/hpf Urine Bacteria None seen Ur Culture Indicated? Culture not indicate Salicylates U Opiates 300ng/mL cut Ur Oxycodone Screen Urine Methadone Screen Acetaminophen Ur Barbiturates Screen U Tricyclic Antidepress Ur Phencyclidine Scrn Ur Amphetamines Screen U Methamphetamines Scrn Ur MDMA Scrn (Ecstasy) U Benzodiazepines Scrn Urine Cocaine Screen U Marijuana (THC) Screen Ethyl Alcohol Chlamy pneumoniae PCR Not detected Adenovirus (PCR) Not detected B. pertussis DNA (PCR) Not detected B.parapertussis DNA PCR Not detected Coronavirus OC43 (PCR) Not detected Coronavirus HKU1 (PCR) Not detected Coronavirus 229E (PCR) Not detected SARS-CoV-2 (PCR) Not detected Coronavirus NL63 (PCR) Not detected Human Metapneumovir PCR Not detected Influenza Type A (PCR) Not detected Influenza Type B (PCR) Not detected M. pneumoniae (PCR) Not detected Parainfluenza 1 (PCR) Not detected Parainfluenza 2 (PCR) Not detected Parainfluenza 3 (PCR) Not detected Parainfluenza 4 (PCR) Not detected RSV (PCR) Not detected Entero/Rhino (PCR) Not detected 12/02/21 12/02/21 16:08 19:00 WBC RBC Hgb Hct MCV MCH MCHC RDW Plt Count Neut % (Auto) Lymph % (Auto) [place] % (Auto) Eos % (Auto) Baso % (Auto) Neut # (Auto) Lymph # (Auto) [place] # (Auto) Eos # (Auto) Baso # (Auto) PT INR APTT D-Dimer ABG pH ABG pCO2 ABG pO2 ABG HCO3 ABG Total CO2 ABG O2 Saturation ABG Base Excess FiO2 Sodium Potassium Chloride Carbon Dioxide BUN Creatinine Estimated GFR BUN/Creatinine Ratio Glucose Lactate Calcium Total Bilirubin AST ALT Alkaline Phosphatase Ammonia 9 Total Creatine Kinase CK-MB (CK-2) CK-MB (CK-2) Rel Index Troponin I NT-Pro-B Natriuret Pep Total Protein Albumin Globulin Albumin/Globulin Ratio Procalcitonin TSH Urine Color Urine Appearance Urine pH Ur Specific [place] Urine Protein Urine Glucose (UA) Urine Ketones Urine Occult Blood Urine Nitrate Urine Bilirubin Urine Urobilinogen Ur Leukocyte Esterase Urine RBC Urine WBC Urine Bacteria Ur Culture Indicated? Salicylates U Opiates 300ng/mL cut Positive H Ur Oxycodone Screen Negative Urine Methadone Screen Negative Acetaminophen Ur Barbiturates Screen Negative U Tricyclic Antidepress Negative Ur Phencyclidine Scrn Negative Ur Amphetamines Screen Negative U Methamphetamines Scrn Negative Ur MDMA Scrn (Ecstasy) Negative U Benzodiazepines Scrn Negative Urine Cocaine Screen Negative U Marijuana (THC) Screen Negative Ethyl Alcohol Chlamy pneumoniae PCR Adenovirus (PCR) B. pertussis DNA (PCR) B.parapertussis DNA PCR Coronavirus OC43 (PCR) Coronavirus HKU1 (PCR) Coronavirus 229E (PCR) SARS-CoV-2 (PCR) Coronavirus NL63 (PCR) Human Metapneumovir PCR Influenza Type A (PCR) Influenza Type B (PCR) M. pneumoniae (PCR) Parainfluenza 1 (PCR) Parainfluenza 2 (PCR) Parainfluenza 3 (PCR) Parainfluenza 4 (PCR) RSV (PCR) Entero/Rhino (PCR) Assessment & Plan Assessment & Plan narrative: NEURO: # Acute encephalopathy -- Secondary to opoioid intoxication from poppy tea -- On narcan infusion -- Mentation improving -- Avoid sedatives -- Cont frequent reorientation -- Will keep patient on narcan infusion and titrate to maintain RASS goal 0 RESP: # Acute hypoxemia respiratory failure -- Secondary to pulmonary edema wiht superimposed PNA -- COVID negative -- Recommend CAP therapy -- Check resp cx -- Start gentle diuresis to seek net negative fluid balance -- Check TTE -- RT to titrate supplemental O2 to maintain goal Spo2 > 88% -- HOB elevation -- Aspiration precaution ID: # Sepsis -- Secondary to PNA -- Start CAP therapy -- Follow up cx data ENDO: -- Goal BS < 180 D/w RN, YARDER PUNCHER, and spouse at bedside. Time Spent With Patient Critical Care time: I spent a total of [] minutes of critical care time on this patient's care today; this time is exclusive of procedural time.
[2021-12-02] MEDS: FUROSEMIDE 20 MG/2 ML VIAL IV (21:24)
[2021-12-02] MEDS: AZITHROMYCIN 500 MG in DEXTROSE 5% IN WATER 250 ML 250 MG IV (21:24)
--- NOTE | 2021-12-02 22:42 | PC.NURSE ---
Patient admitted to ICU 226 via stretcher from ED for AMS and a narcan drip. VSS on arrival. Patient on 5L humidified O2 saturating > 95%. Patient falling asleep between questions, but was able to wake up and have a normal conversation when prompted. She was however confused as to what had happened and why she was here. Tele ICU team aware of arrival as well as hospitalist. Orders received at this time.
[2021-12-03] VITALS (12 sets, daily range): BP systolic 107–124; BP diastolic 64–80; PULSE 82–92; RESP 19–28; TEMP 37.3–38.2; O2SAT 91–97
[2021-12-03] MEDS: NICOTINE 21 MG PATCH TOP (01:46)
[2021-12-03] MEDS: ACETAMINOPHEN 325 MG TABLET 650 MG PO (02:45)
[2021-12-03] MEDS: NALOXONE 2 MG in SODIUM CHLORIDE 0.9% 500 ML 62.5 MG IV (03:55)
[2021-12-03 05:14] LABS: Add Manual Diff / Slide Review NO; Basophils Absolute Auto 100 /uL (0-100); Basophils Percent Auto 0.6 % (0-2); Eosinophils Absolute Auto 0 /uL (0-450); Eosinophils Percent Auto 0.4 % (2-4); Hematocrit 34.4 % (36-46); Hemoglobin 11.6 g/dL (12.0-16.0); Lymphocytes Absolute Auto 1300 /uL (1100-4500); Lymphocytes Percent Auto 13.2 % (25-40); Mean Corpuscular HGB Conc 33.7 % (30-36); Mean Corpuscular Hemoglobin 31.1 PG (26-34); Mean Corpuscular Volume 92.3 fL (80-100); Monocytes Absolute Auto 700 /uL (0-900); Monocytes Percent Auto 6.8 % (3-14); Neutrophils Absolute Auto 7900 /uL (1500-7000); Platelet Count 235 X10^3/uL (150-400); Red Blood Cell Count 3.73 X10^6/uL (4.0-5.2); Red Cell Distribution Width 15.1 % (11.6-14.8)
[2021-12-03 05:20] LABS: BUN Creatinine Ratio 6.8 (6-22); Blood Urea Nitrogen 3 mg/dL (7-17); Calcium 7.8 mg/dL (8.4-10.2); Carbon Dioxide 28 mmol/L (22-32); Chloride 103 mmol/L (98-107); Estimated Glomerular Filt Rate > 60 mL/min (>60); Glucose 82 mg/dL (70-100); HEMOLYSIS < 15 (0-50); Magnesium 1.8 mg/dL (1.6-2.3); Potassium 3.5 mmol/L (3.4-5.1); Sodium 133 mmol/L (137-145)
[2021-12-03] MEDS: MULTIVITAMIN 1 TABLET 1 TAB PO (09:23)
[2021-12-03] MEDS: POTASSIUM CHLORIDE 20 MEQ TAB 40 MEQ PO (09:23)
[2021-12-03] MEDS: FOLIC ACID 1 MG TABLET PO (09:23)
[2021-12-03] MEDS: THIAMINE 100 MG TABLET PO (09:24)
--- NOTE | 2021-12-03 10:39 | PM.DS.1 ---
History of Present Illness History of Present Illness Date Patient Seen: 12/03/21 Chief complaint: AMS Narrative: JEREMIAS Flor: Rebekah Washington is a 51-year-old female of generalized anxiety disorder, major depressive disorder, alcohol dependence, peripheral neuropathy, obstructive sleep apnea, chronic back pain, GERD presented to the emergency department with altered mental status.? She is unable to provide a history as to why she was brought in. Patient was 70% on room air.? Patient responds to verbal stimuli she answers some questions but not all.? She denies chest pain.? She indicates that she is had some trouble breathing for the last day. Patient did seem to endorse that she drank some Poppy tea from plants in her yard which contained an opioid in an attempt to control her back pain. She stated positive for chest shortness of breath, nasal congestion, nausea and abdominal pain. She denies headache, chest pain, heart palpitations, vomiting, denies dysuria, diarrhea or constipation. She states she has chronic back pain due to a fracture she has had an 2 vertebrae she states secondary to osteoporosis. She is unable to tell me when the fracture occurred and under what circumstances. Patient was given 2 doses of Narcan and then decision was made to admit her to the ICU and put her on a Narcan drip after discussion with the design/animation instructor. Because she had an elevated D-dimer they did a CT angiogram which only noted bilateral bibasilar consolidations and patchy ground-glass opacities improved over prior an possible component of superimposed CHF. Head and C-spine CT were both negative for any acute process. She is afebrile, blood pressure 92/59, heart rate 79, respiratory rate 17, oxygen saturation 94% on 2 L she weighs 62.5 kg with a BMI of 26.9. CBC is unremarkable, her D-dimer was 353, ABG pH was 7.3 ABG pCO2 was 49.5 PO2 was 54 bicarb 28 and ABG O2 saturation was 85% her sodium was 129 proBNP was 470 procalcitonin negative TSH H was within normal limits UA was negative for UTI urine toxicology was positive for opiates though THC was negative viral panel was negative including COVID-19 PCR. Discharge Providers Provider Date of admission: 12/02/21 19:06 Discharge Date: 12/03/21 Primary care physician: Barry Em MD Consults: 12/02/21 19:59 Consult to Tele-design/animation instructor Routine Comment: Consulting Provider: [employer] Reason for consultation: [employer] Has provider been notified: Yes 12/04/21 07:00 Consult to Physician Routine Comment: Consulting Provider: Chas Gomez Reason for consultation: Opiate overdose Has provider been notified: No Discharge provider: Josue Polk DO Summary Hospital Course Discharge Diagnosis: opioid overdose, acute, present on admission Toxic metabolic encephalopathy, and acute respiratory failure with hypoxia secondary to opiate overdose Bacterial Pneumonia, acute, likely community acquired Chronic back pain Hospital Course: This is a 51-year-old female with a past medical history generalized anxiety disorder, chronic pain, major depressive disorder, alcohol dependence, peripheral neuropathy, obstructive sleep apnea, chronic back pain, GERD who was admitted with a toxic encephalopathy and acute respiratory failure in the setting of reported ingestion of a Poppy based tea. Urine drug screen was positive for opiates. She required supplemental oxygen in the emergency room and her mentation improved with administration of Narcan. She was given multiple doses of Narcan, but these seemingly wore off over some time and she was started on a Narcan infusion. She was admitted to the ICU where her infusion was continued overnight. The following morning her infusion was discontinued and her hypoxia had resolved. She remained awake and alert with no hypoxia after discontinuation of her infusion. Chest x-ray on admission did show an infiltrate consistent with pneumonia and she was started on antibiotic therapy. The patient was already taking ceftriaxone for her ankle, and azithromycin was added at the time of discharge to provide adequate coverage for bacterial pneumonia. She was counseled on opiate use and recommended to avoid continued use this tea. Time Spent with Patient Time spent: Greater than 30 minutes Exam Vital Signs (past 8 hours): - 12/03/21 02:45 12/03/21 03:00 12/03/21 03:00 Temperature 100.8 F H 100.8 F H Pulse Rate 91 H Respiratory Rate 28 H Blood Pressure 114/64 Pulse Oximetry 93 Oxygen Delivery Method Oxygen Flow Rate 12/03/21 04:00 12/03/21 04:00 12/03/21 04:00 Temperature Pulse Rate Respiratory Rate Blood Pressure 108/66 Pulse Oximetry Oxygen Delivery Method Nasal Cannula Humidification Oxygen Flow Rate 2 12/03/21 04:00 12/03/21 05:00 12/03/21 05:00 Temperature 100.0 F H 99.5 F Pulse Rate 86 87 Respiratory Rate 25 H 19 Blood Pressure 116/75 Pulse Oximetry 94 95 Oxygen Delivery Method Oxygen Flow Rate 12/03/21 06:00 12/03/21 06:00 12/03/21 07:00 Temperature 99.1 F Pulse Rate 84 Respiratory Rate 21 Blood Pressure 123/71 122/80 Pulse Oximetry 95 Oxygen Delivery Method Oxygen Flow Rate 12/03/21 07:00 12/03/21 08:00 12/03/21 08:00 Temperature 99.1 F 99.1 F Pulse Rate 82 86 Respiratory Rate 21 20 Blood Pressure 122/78 Pulse Oximetry 94 95 Oxygen Delivery Method Oxygen Flow Rate 12/03/21 09:00 12/03/21 09:00 12/03/21 08:00 Temperature 99.1 F Pulse Rate 92 H Respiratory Rate 21 Blood Pressure 119/78 Pulse Oximetry 93 Oxygen Delivery Method Nasal Cannula Oxygen Flow Rate Oxygen Delivery Method Nasal Cannula Oxygen Flow Rate 2 Narrative Exam Narrative: Gen: Alert, oriented, well-nourished ill appearing 51 y.o. female, lethargic HEENT: normocephalic, atraumatic, conjunctiva clear, sclera non-icteric, oral mucosa pink and moist Neck: supple, full ROM, no JVD, trachea is midline Resp: Lungs CTA, non-labored breathing CV: RRR, no murmur or rubs Abd: soft, non-tender, normoactive BTs Skin: no lesions or rashes, dry and intact Neuro: Alert and oriented X 4 w/no focal deficits. Speech clear and coherent. Extremities: moves all 4 extremities, is ambulatory, negative Migue?s sign Psyche: depressed affect. Objective Labs Result Diagrams: 12/03/21 04:52 12/03/21 04:52 Labs: Laboratory Results - last 24 hr 12/02/21 12/02/21 12/02/21 15:30 15:30 15:30 WBC 8.6 RBC 4.19 Hgb 13.3 Hct 38.8 MCV 92.7 MCH 31.9 MCHC 34.4 RDW 15.3 H Plt Count 232 Neut % (Auto) 76.4 H Lymph % (Auto) 17.6 L [place] % (Auto) 5.0 Eos % (Auto) 0.7 L Baso % (Auto) 0.3 Neut # (Auto) 6600 Lymph # (Auto) 1500 [place] # (Auto) 400 Eos # (Auto) 100 Baso # (Auto) 0 PT 10.7 INR 1.0 APTT D-Dimer 353 H ABG pH ABG pCO2 ABG pO2 ABG HCO3 ABG Total CO2 ABG O2 Saturation ABG Base Excess FiO2 Sodium Potassium Chloride Carbon Dioxide BUN Creatinine Estimated GFR BUN/Creatinine Ratio Glucose Lactate Calcium Magnesium Total Bilirubin AST ALT Alkaline Phosphatase Ammonia Total Creatine Kinase CK-MB (CK-2) CK-MB (CK-2) Rel Index Troponin I NT-Pro-B Natriuret Pep Cancelled Total Protein Albumin Globulin Albumin/Globulin Ratio Procalcitonin TSH Urine Color Urine Appearance Urine pH Ur Specific [place] Urine Protein Urine Glucose (UA) Urine Ketones Urine Occult Blood Urine Nitrate Urine Bilirubin Urine Urobilinogen Ur Leukocyte Esterase Urine RBC Urine WBC Urine Bacteria Ur Culture Indicated? Nasal Screen MRSA (PCR) Salicylates U Opiates 300ng/mL cut Ur Oxycodone Screen Urine Methadone Screen Acetaminophen Ur Barbiturates Screen U Tricyclic Antidepress Ur Phencyclidine Scrn Ur Amphetamines Screen U Methamphetamines Scrn Ur MDMA Scrn (Ecstasy) U Benzodiazepines Scrn Urine Cocaine Screen U Marijuana (THC) Screen Ethyl Alcohol Chlamy pneumoniae PCR Adenovirus (PCR) B. pertussis DNA (PCR) B.parapertussis DNA PCR Coronavirus OC43 (PCR) Coronavirus HKU1 (PCR) Coronavirus 229E (PCR) SARS-CoV-2 (PCR) Coronavirus NL63 (PCR) Human Metapneumovir PCR Influenza Type A (PCR) Influenza Type B (PCR) M. pneumoniae (PCR) Parainfluenza 1 (PCR) Parainfluenza 2 (PCR) Parainfluenza 3 (PCR) Parainfluenza 4 (PCR) RSV (PCR) Entero/Rhino (PCR) 12/02/21 12/02/21 12/02/21 15:30 15:30 15:30 WBC RBC Hgb Hct MCV MCH MCHC RDW Plt Count Neut % (Auto) Lymph % (Auto) [place] % (Auto) Eos % (Auto) Baso % (Auto) Neut # (Auto) Lymph # (Auto) [place] # (Auto) Eos # (Auto) Baso # (Auto) PT INR APTT 37 H D D-Dimer ABG pH ABG pCO2 ABG pO2 ABG HCO3 ABG Total CO2 ABG O2 Saturation ABG Base Excess FiO2 Sodium 129 L Potassium 4.2 Chloride 98 Carbon Dioxide 26 BUN 4 L Creatinine 0.63 Estimated GFR > 60 BUN/Creatinine Ratio 6.3 Glucose 85 Lactate 2.0 Calcium 8.5 Magnesium Total Bilirubin 0.3 AST 25 ALT 9 Alkaline Phosphatase 81 Ammonia Total Creatine Kinase 257 H CK-MB (CK-2) 1.99 CK-MB (CK-2) Rel Index 0.8 L Troponin I < 0.012 NT-Pro-B Natriuret Pep 470 H Total Protein 6.1 L Albumin 3.4 L Globulin 2.7 Albumin/Globulin Ratio 1.3 Procalcitonin 0.04 TSH Urine Color Urine Appearance Urine pH Ur Specific [place] Urine Protein Urine Glucose (UA) Urine Ketones Urine Occult Blood Urine Nitrate Urine Bilirubin Urine Urobilinogen Ur Leukocyte Esterase Urine RBC Urine WBC Urine Bacteria Ur Culture Indicated? Nasal Screen MRSA (PCR) Salicylates U Opiates 300ng/mL cut Ur Oxycodone Screen Urine Methadone Screen Acetaminophen Ur Barbiturates Screen U Tricyclic Antidepress Ur Phencyclidine Scrn Ur Amphetamines Screen U Methamphetamines Scrn Ur MDMA Scrn (Ecstasy) U Benzodiazepines Scrn Urine Cocaine Screen U Marijuana (THC) Screen Ethyl Alcohol Chlamy pneumoniae PCR Adenovirus (PCR) B. pertussis DNA (PCR) B.parapertussis DNA PCR Coronavirus OC43 (PCR) Coronavirus HKU1 (PCR) Coronavirus 229E (PCR) SARS-CoV-2 (PCR) Coronavirus NL63 (PCR) Human Metapneumovir PCR Influenza Type A (PCR) Influenza Type B (PCR) M. pneumoniae (PCR) Parainfluenza 1 (PCR) Parainfluenza 2 (PCR) Parainfluenza 3 (PCR) Parainfluenza 4 (PCR) RSV (PCR) Entero/Rhino (PCR) 12/02/21 12/02/21 12/02/21 15:30 15:30 15:30 WBC RBC Hgb Hct MCV MCH MCHC RDW Plt Count Neut % (Auto) Lymph % (Auto) [place] % (Auto) Eos % (Auto) Baso % (Auto) Neut # (Auto) Lymph # (Auto) [place] # (Auto) Eos # (Auto) Baso # (Auto) PT INR APTT D-Dimer ABG pH ABG pCO2 ABG pO2 ABG HCO3 ABG Total CO2 ABG O2 Saturation ABG Base Excess FiO2 Sodium Potassium Chloride Carbon Dioxide BUN Creatinine Estimated GFR BUN/Creatinine Ratio Glucose Lactate Calcium Magnesium Total Bilirubin AST ALT Alkaline Phosphatase Ammonia Total Creatine Kinase CK-MB (CK-2) CK-MB (CK-2) Rel Index Troponin I NT-Pro-B Natriuret Pep Total Protein Albumin Globulin Albumin/Globulin Ratio Procalcitonin TSH 2.32 Urine Color Urine Appearance Urine pH Ur Specific [place] Urine Protein Urine Glucose (UA) Urine Ketones Urine Occult Blood Urine Nitrate Urine Bilirubin Urine Urobilinogen Ur Leukocyte Esterase Urine RBC Urine WBC Urine Bacteria Ur Culture Indicated? Nasal Screen MRSA (PCR) Salicylates < 1.0 U Opiates 300ng/mL cut Ur Oxycodone Screen Urine Methadone Screen Acetaminophen < 10 Ur Barbiturates Screen U Tricyclic Antidepress Ur Phencyclidine Scrn Ur Amphetamines Screen U Methamphetamines Scrn Ur MDMA Scrn (Ecstasy) U Benzodiazepines Scrn Urine Cocaine Screen U Marijuana (THC) Screen Ethyl Alcohol < 10 Chlamy pneumoniae PCR Adenovirus (PCR) B. pertussis DNA (PCR) B.parapertussis DNA PCR Coronavirus OC43 (PCR) Coronavirus HKU1 (PCR) Coronavirus 229E (PCR) SARS-CoV-2 (PCR) Negative Coronavirus NL63 (PCR) Human Metapneumovir PCR Influenza Type A (PCR) Influenza Type B (PCR) M. pneumoniae (PCR) Parainfluenza 1 (PCR) Parainfluenza 2 (PCR) Parainfluenza 3 (PCR) Parainfluenza 4 (PCR) RSV (PCR) Entero/Rhino (PCR) 12/02/21 12/02/21 12/02/21 15:30 16:00 16:08 WBC RBC Hgb Hct MCV MCH MCHC RDW Plt Count Neut % (Auto) Lymph % (Auto) [place] % (Auto) Eos % (Auto) Baso % (Auto) Neut # (Auto) Lymph # (Auto) [place] # (Auto) Eos # (Auto) Baso # (Auto) PT INR APTT D-Dimer ABG pH 7.36 ABG pCO2 49.5 H ABG pO2 54 L ABG HCO3 28 H ABG Total CO2 29 ABG O2 Saturation 85 L* ABG Base Excess 2.0 FiO2 35 Sodium Potassium Chloride Carbon Dioxide BUN Creatinine Estimated GFR BUN/Creatinine Ratio Glucose Lactate Calcium Magnesium Total Bilirubin AST ALT Alkaline Phosphatase Ammonia Total Creatine Kinase CK-MB (CK-2) CK-MB (CK-2) Rel Index Troponin I NT-Pro-B Natriuret Pep Total Protein Albumin Globulin Albumin/Globulin Ratio Procalcitonin TSH Urine Color Yellow Urine Appearance Clear Urine pH 6.0 Ur Specific [place] <=1.005 Urine Protein Negative Urine Glucose (UA) Negative Urine Ketones Negative Urine Occult Blood Negative Urine Nitrate Negative Urine Bilirubin Negative Urine Urobilinogen 0.2 Ur Leukocyte Esterase Negative Urine RBC None seen Urine WBC 0-1/hpf Urine Bacteria None seen Ur Culture Indicated? Culture not indicate Nasal Screen MRSA (PCR) Salicylates U Opiates 300ng/mL cut Ur Oxycodone Screen Urine Methadone Screen Acetaminophen Ur Barbiturates Screen U Tricyclic Antidepress Ur Phencyclidine Scrn Ur Amphetamines Screen U Methamphetamines Scrn Ur MDMA Scrn (Ecstasy) U Benzodiazepines Scrn Urine Cocaine Screen U Marijuana (THC) Screen Ethyl Alcohol Chlamy pneumoniae PCR Not detected Adenovirus (PCR) Not detected B. pertussis DNA (PCR) Not detected B.parapertussis DNA PCR Not detected Coronavirus OC43 (PCR) Not detected Coronavirus HKU1 (PCR) Not detected Coronavirus 229E (PCR) Not detected SARS-CoV-2 (PCR) Not detected Coronavirus NL63 (PCR) Not detected Human Metapneumovir PCR Not detected Influenza Type A (PCR) Not detected Influenza Type B (PCR) Not detected M. pneumoniae (PCR) Not detected Parainfluenza 1 (PCR) Not detected Parainfluenza 2 (PCR) Not detected Parainfluenza 3 (PCR) Not detected Parainfluenza 4 (PCR) Not detected RSV (PCR) Not detected Entero/Rhino (PCR) Not detected 12/02/21 12/02/21 12/02/21 16:08 19:00 20:15 WBC RBC Hgb Hct MCV MCH MCHC RDW Plt Count Neut % (Auto) Lymph % (Auto) [place] % (Auto) Eos % (Auto) Baso % (Auto) Neut # (Auto) Lymph # (Auto) [place] # (Auto) Eos # (Auto) Baso # (Auto) PT INR APTT D-Dimer ABG pH ABG pCO2 ABG pO2 ABG HCO3 ABG Total CO2 ABG O2 Saturation ABG Base Excess FiO2 Sodium Potassium Chloride Carbon Dioxide BUN Creatinine Estimated GFR BUN/Creatinine Ratio Glucose Lactate Calcium Magnesium Total Bilirubin AST ALT Alkaline Phosphatase Ammonia 9 Total Creatine Kinase CK-MB (CK-2) CK-MB (CK-2) Rel Index Troponin I NT-Pro-B Natriuret Pep Total Protein Albumin Globulin Albumin/Globulin Ratio Procalcitonin TSH Urine Color Urine Appearance Urine pH Ur Specific [place] Urine Protein Urine Glucose (UA) Urine Ketones Urine Occult Blood Urine Nitrate Urine Bilirubin Urine Urobilinogen Ur Leukocyte Esterase Urine RBC Urine WBC Urine Bacteria Ur Culture Indicated? Nasal Screen MRSA (PCR) Negative for mrsa Salicylates U Opiates 300ng/mL cut Positive H Ur Oxycodone Screen Negative Urine Methadone Screen Negative Acetaminophen Ur Barbiturates Screen Negative U Tricyclic Antidepress Negative Ur Phencyclidine Scrn Negative Ur Amphetamines Screen Negative U Methamphetamines Scrn Negative Ur MDMA Scrn (Ecstasy) Negative U Benzodiazepines Scrn Negative Urine Cocaine Screen Negative U Marijuana (THC) Screen Negative Ethyl Alcohol Chlamy pneumoniae PCR Adenovirus (PCR) B. pertussis DNA (PCR) B.parapertussis DNA PCR Coronavirus OC43 (PCR) Coronavirus HKU1 (PCR) Coronavirus 229E (PCR) SARS-CoV-2 (PCR) Coronavirus NL63 (PCR) Human Metapneumovir PCR Influenza Type A (PCR) Influenza Type B (PCR) M. pneumoniae (PCR) Parainfluenza 1 (PCR) Parainfluenza 2 (PCR) Parainfluenza 3 (PCR) Parainfluenza 4 (PCR) RSV (PCR) Entero/Rhino (PCR) 12/03/21 12/03/21 04:52 04:52 WBC 10.0 RBC 3.73 L Hgb 11.6 L Hct 34.4 L MCV 92.3 MCH 31.1 MCHC 33.7 RDW 15.1 H Plt Count 235 Neut % (Auto) 79.0 H Lymph % (Auto) 13.2 L [place] % (Auto) 6.8 Eos % (Auto) 0.4 L Baso % (Auto) 0.6 Neut # (Auto) 7900 H Lymph # (Auto) 1300 [place] # (Auto) 700 Eos # (Auto) 0 Baso # (Auto) 100 PT INR APTT D-Dimer ABG pH ABG pCO2 ABG pO2 ABG HCO3 ABG Total CO2 ABG O2 Saturation ABG Base Excess FiO2 Sodium 133 L Potassium 3.5 Chloride 103 Carbon Dioxide 28 BUN 3 L Creatinine 0.44 L Estimated GFR > 60 BUN/Creatinine Ratio 6.8 Glucose 82 Lactate Calcium 7.8 L Magnesium 1.8 Total Bilirubin AST ALT Alkaline Phosphatase Ammonia Total Creatine Kinase CK-MB (CK-2) CK-MB (CK-2) Rel Index Troponin I NT-Pro-B Natriuret Pep Total Protein Albumin Globulin Albumin/Globulin Ratio Procalcitonin TSH Urine Color Urine Appearance Urine pH Ur Specific [place] Urine Protein Urine Glucose (UA) Urine Ketones Urine Occult Blood Urine Nitrate Urine Bilirubin Urine Urobilinogen Ur Leukocyte Esterase Urine RBC Urine WBC Urine Bacteria Ur Culture Indicated? Nasal Screen MRSA (PCR) Salicylates U Opiates 300ng/mL cut Ur Oxycodone Screen Urine Methadone Screen Acetaminophen Ur Barbiturates Screen U Tricyclic Antidepress Ur Phencyclidine Scrn Ur Amphetamines Screen U Methamphetamines Scrn Ur MDMA Scrn (Ecstasy) U Benzodiazepines Scrn Urine Cocaine Screen U Marijuana (THC) Screen Ethyl Alcohol Chlamy pneumoniae PCR Adenovirus (PCR) B. pertussis DNA (PCR) B.parapertussis DNA PCR Coronavirus OC43 (PCR) Coronavirus HKU1 (PCR) Coronavirus 229E (PCR) SARS-CoV-2 (PCR) Coronavirus NL63 (PCR) Human Metapneumovir PCR Influenza Type A (PCR) Influenza Type B (PCR) M. pneumoniae (PCR) Parainfluenza 1 (PCR) Parainfluenza 2 (PCR) Parainfluenza 3 (PCR) Parainfluenza 4 (PCR) RSV (PCR) Entero/Rhino (PCR) [facility] Medical History Allergy (Unknown) Anxiety (1989) Chronic back pain (Unknown) Chronic venous insufficiency Foot pain (2003) GERD (gastroesophageal reflux disease) (Unknown) Heavy menses (Unknown) IBS (irritable bowel syndrome) (1985) Neuropathy Obstructive sleep apnea (Unknown) Painful menstrual periods (Unknown) Restless leg syndrome (2015) Shoulder pain (Unknown) Vertigo (1979) Surgical History History of removal of laparoscopic gastric banding device (2014) Hx of laparoscopic gastric banding (2011) Hx of sinus surgery (2011) 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) Family History Grandmother Cancer Mental health problem Mother Age: 73 Mental health disorder Sister Age: 55 Heart disease Hypertension High cholesterol Mental health problem Asthma COPD (chronic obstructive pulmonary disease) Social History household members: spouse and family Smoking Status: Current every day smoker Tobacco: How many years used: 10 second hand exposure: No alcohol intake: former substance use type: does not use Discharge Plan Discharge Plan Patient Disposition: Home Provider Discharge Comment: You were admitted to the hospital with difficulty breathing after some opium based tea. You improved with medication to reverse opiates and were observed off of this infusion. Please avoid Poppy based teas in the future, and avoid with recent alcohol intake and pain medications. Discharge orders & Medications Prescriptions: New azithromycin 250 mg tablet 250 mg PO DAILY 4 Days Qty: 4 0RF Continued mupirocin 2 % ointment 1 applic topical TID Qty: 15 0RF albuterol sulfate 90 mcg/actuation aerosol powdr breath activated 2 puff INHALATION Q4H PRN (Reason: shortness of breath or wheezing) Qty: 1 0RF Label Comments: few weeks Rx Instructions: administer with spacer propranolol 20 mg tablet 20 mg PO BID Qty: 180 0RF Label Comments: Takes for PTSD gabapentin 300 mg capsule 300 mg PO TID Qty: 90 2RF Label Comments: patient states she takes it here and there hydroxyzine HCl 50 mg tablet 50 mg PO BID PRN (Reason: anxiety) Qty: 60 2RF Rx Instructions: Dr. Conchita xie for Dr. Gomez. escitalopram oxalate 20 mg tablet 20 mg PO DAILY Qty: 90 0RF Rx Instructions: Take 1 tab by mouth daily Dr. Conchita xie for Dr. Gomez. clonazepam 0.5 mg tablet 0.5 mg PO BID PRN (Reason: Anxiety) Qty: 60 2RF Rx Instructions: Do not take with alcohol. ondansetron HCl 8 mg tablet 8 mg PO BID-TID PRN (Reason: nausea and vomiting) Qty: 90 0RF risperidone 0.5 mg tablet 0.5 mg PO QPM Rx Instructions: Take 0.5-1 tab by mouth at bedtime baclofen 20 mg tablet 20 mg PO TID PRN (Reason: Muscle Spasm) 7 Days Qty: 20 0RF cephalexin 500 mg capsule 500 mg PO BID Label Comments: TAKE ONE CAPSULE BY MOUTH EVERY TWELVE HOURS FOR 5 DAYS Rx Instructions: takes at 1030 and 2230 Follow up/Referrals: Barry Em MD [Primary Care Provider] - Diet/Activity/Treatments Diet: Diet as Tolerated Diet comment: As tolerated Activity: As tolerated Discharge Data Primary Care Provider: Barry Em Quality VTE Deep Vein Thrombosis/Pulmonary Embolism Present on Admission: No
--- NOTE | 2021-12-03 10:43 | CM.DANOTE ---
Initial DCP Assessment Note Pt is a 51 yo female, resident of [place], presents w/altered mental status admitted for medical management of Probable opioid overdose, acute. PMH includes generalized anxiety disorder, major depressive disorder, alcohol dependence, peripheral neuropathy, obstructive sleep apnea, chronic back pain, GERD PCP: Barry Em Payer: Paul/MOSHE Reviewed chart, pt discussed in multidisciplinary rounds this morning. Dr Polk planning to DC patient home, no expected needs from CM team Met w/patient to introduce self and role; patient denies needs from this [employer], states she will return home w/spouse and has an appt scheduled w/Dr Em tomorrow morning Plan: DC home w/family, close outpatient f/u ROMARIO Marshall Discharge Planning/Care Management Discharge Assessment Start: 12/03/21 10:41 Freq: Status: Active Protocol: Document 12/03/21 10:41 SANTANA (Rec: 12/03/21 10:43 SANTANA [id number]) Discharge Planning Assessment Assigned Rubber Liner ROMARIO Tapia DPOA/Assigned Designee Name Vick Washington, spouse Contact Information [phone] Advance Directives? No Advance Directives on File No History Provided By Patient,Medical Record Prior Living Arrangements House Household Members spouse,family Type of transportation used prior to Relies on Others admit Independent with ADL's Yes Is patient alert and oriented? Yes Barriers to Discharge No Discharge Plan Home Transportation Arrangement Spouse Referrals Initiated Other Additional Comment Home today
--- NOTE | 2021-12-03 11:51 | PC.NURSE ---
Patient discharged to home via personal vehicle with spouse. Patient A/Ox4, guerra removed- patient voided prior to discharge, tele off, IVs removed, patient spO2 >90% on RA. New Rx for abx for pneumonia sent to [facility]. Patient to restart all home medications. Patient has existing appointment with PCP tomorrow 12/04/21. Patient and spouse had no further concerns or questions at discharge.
== END 2021-12-03 11:38 | disposition home or self-care (01) | DRG 816 ==
LOC: ED 18:40 → ICU 12-03 10:49
PROVIDERS: Nurse Practitioner Family; Admitting Provider Internal Medicine; Emergency Provider Emergency Medicine; Family Provider Family Medicine; PCP Family Medicine; Referring Provider Emergency Medicine; Visit Provider Internal Medicine
DX: T40.0X1A Poisoning by opium, accidental (unintentional), initial encounter (principal); J96.01 Acute respiratory failure with hypoxia; G92.8 Other toxic encephalopathy; J15.9 Unspecified bacterial pneumonia; F32.9 Major depressive disorder, single episode, unspecified; F41.1 Generalized anxiety disorder; G62.9 Polyneuropathy, unspecified; G89.29 Other chronic pain; M54.9 Dorsalgia, unspecified; F17.210 Nicotine dependence, cigarettes, uncomplicated; Z20.822 Contact with and (suspected) exposure to COVID-19
CPT/HCPCS: 36415; 36591; 36600; 70450; 71045; 71275; 72125; 80048; 80053; 80305; 80320; 80329; 81001; 81003; 82140; 82550; 82553; 82805; 82962; 83605; 83735; 83880; 84145; 84443; 84484; 85025; 85379; 85610; 85730; 87040; 87086; 87633; 87635; 87797; 94640; 96365; 96367; 96368; 96375; 96376; 99285; 99291; 99292; C9803; G0480; J0696; J1650; J1940; J2310; Q9967

== ENCOUNTER → 2021-12-22 15:38 | Outpatient (CLI) | payer OTHER, MEDICAID, SELFPAY ==
[2021-12-02 20:22] VITALS: BMI 26.9
[2021-12-22 16:59] LABS: Add Manual Diff / Slide Review NO; Basophils Absolute Auto 100 /uL (0-100); Basophils Percent Auto 0.7 % (0-2); Eosinophils Absolute Auto 100 /uL (0-450); Eosinophils Percent Auto 0.9 % (2-4); Hematocrit 38.8 % (36-46); Hemoglobin 13.5 g/dL (12.0-16.0); Lymphocytes Absolute Auto 2500 /uL (1100-4500); Lymphocytes Percent Auto 30.4 % (25-40); Mean Corpuscular HGB Conc 34.8 % (30-36); Mean Corpuscular Hemoglobin 31.4 PG (26-34); Mean Corpuscular Volume 90.4 fL (80-100); Monocytes Absolute Auto 500 /uL (0-900); Monocytes Percent Auto 5.7 % (3-14); Neutrophils Absolute Auto 5100 /uL (1500-7000); Neutrophils Percent Auto 62.3 % (50-75); Platelet Count 323 X10^3/uL (150-400); Red Blood Cell Count 4.29 X10^6/uL (4.0-5.2); Red Cell Distribution Width 15.3 % (11.6-14.8); White Blood Cell Count 8.1 X10^3/uL (4.5-11.0)
== END ==
PROVIDERS: Family Provider Family Medicine; PCP Family Medicine; Referring Provider Family Medicine; Visit Provider Family Medicine
DX: Z90.3 Acquired absence of stomach [part of] (principal); Z79.899 Other long term (current) drug therapy
CPT/HCPCS: 36415; 85025

== ENCOUNTER → 2022-04-11 12:33 | Outpatient (CLI) | payer OTHER, MEDICAID, SELFPAY ==
[2021-12-02 20:22] VITALS: BMI 26.9
[2022-04-11 13:23] LABS: Hemoglobin A1C% w Est Avg Glu 4.9 % (4.0-6.0)
[2022-04-11 13:48] LABS: Alanine Aminotransferase 10 IU/L (<35); Albumin 3.4 g/dL (3.5-5.0); Albumin Globulin Ratio 1.3 (1.0-2.8); Alkaline Phosphatase 83 U/L (38-126); Aspartate Aminotransferase 16 IU/L (14-36); BUN Creatinine Ratio 8.8 (6-22); Bilirubin Total 0.4 mg/dL (0.2-1.3); Blood Urea Nitrogen 6 mg/dL (7-17); Calcium 8.8 mg/dL (8.4-10.2); Carbon Dioxide 27 mmol/L (22-32); Chloride 96 mmol/L (98-107); Estimated Glomerular Filt Rate > 60 mL/min (>60); Globulin 2.7 g/dL (1.7-4.1); Glucose 84 mg/dL (70-100); HEMOLYSIS < 15 (0-50); Magnesium 1.8 mg/dL (1.6-2.3); Potassium 4.2 mmol/L (3.4-5.1); Sodium 130 mmol/L (137-145); Total Protein 6.1 g/dL (6.3-8.2)
[2022-04-11 14:02] LABS: Free T4, Direct Thyroxine 1.02 ng/dL (0.78-2.19)
[2022-04-11 14:16] LABS: Thyroid Stimulating Hormone 6.19 uIU/mL (0.47-4.68)
[2022-04-11 14:53] LABS: Folate 5.4 ng/mL (2.76-20.0); Vitamin B12 699 pg/mL (239-931)
[2022-04-11 15:59] LABS: Vitamin D 25 Hydroxy (D3) 43.1 ng/mL (30.0-100.0)
[2022-04-11 17:15] LABS: Follicle Stimulating Hormone 7.17 mIU/mL; Luteinizing Hormone 0.636 mIU/mL
[2022-04-12 20:22] LABS: Deamidated Gliadin Ab IgA 4 units (0-19); Deamidated Gliadin Ab IgG <1 units (0-19); Immunoglobulin A,Qn 243 mg/dL (87-352); t-Transglutaminase IgA <2 U/mL (0-3)
[2022-04-13 21:51] LABS: Calcium 8.9 mg/dL (8.7-10.2); Parathyroid Hormone, Intact 49 pg/mL (15-65)
[2022-04-16 10:12] LABS: Collection Time Urine 24 Hours; Creatinine 24 Hour Urine 753 mg/day (800-1800); Creatinine Urine Random 26.9 mg/dL; Total Volume Urine 2800 mL
[2022-04-16 11:10] LABS: Calcium 24 Hour Urine 196 mg/day (100-300); Collection Time Urine 24 Hours; Total Volume Urine 2800 mL
[2022-04-17 13:35] LABS: N-Telopeptide 33.1 nmol BCE/L (6.2-19.0)
== END ==
PROVIDERS: Family Provider Family Medicine; PCP Family Medicine; Referring Provider Student in an Organized Health Care Education/Training Program; Visit Provider Student in an Organized Health Care Education/Training Program
DX: M81.0 Age-related osteoporosis without current pathological fracture (principal)
CPT/HCPCS: 36415; 80053; 82306; 82310; 82340; 82523; 82570; 82607; 82670; 82746; 82784; 83001; 83002; 83036; 83516; 83735; 83970; 84146; 84270; 84439; 84443

== ENCOUNTER → 2022-07-03 10:45 | Outpatient (CLI) | payer OTHER, MEDICAID, SELFPAY ==
[2021-12-02 20:22] VITALS: BMI 26.9
[2022-07-03 12:23] LABS: Alanine Aminotransferase 12 IU/L (<35); Albumin 3.9 g/dL (3.5-5.0); Albumin Globulin Ratio 1.4 (1.0-2.8); Alkaline Phosphatase 98 U/L (38-126); Aspartate Aminotransferase 22 IU/L (14-36); Bilirubin Total 0.7 mg/dL (0.2-1.3); Blood Urea Nitrogen 15 mg/dL (7-17); Calcium 9.2 mg/dL (8.4-10.2); Carbon Dioxide 25 mmol/L (22-32); Chloride 103 mmol/L (98-107); Estimated Glomerular Filt Rate > 60 mL/min (>60); Globulin 2.8 g/dL (1.7-4.1); Glucose 78 mg/dL (70-100); HEMOLYSIS < 15 (0-50); Potassium 3.2 mmol/L (3.4-5.1); Sodium 135 mmol/L (137-145); Total Protein 6.7 g/dL (6.3-8.2)
[2022-07-03 12:31] LABS: Prolactin 25.3 ng/mL (3.0-18.6)
[2022-07-03 12:33] LABS: Free T4, Direct Thyroxine 1.03 ng/dL (0.78-2.19)
[2022-07-03 12:47] LABS: Thyroid Stimulating Hormone 8.58 uIU/mL (0.47-4.68)
== END ==
PROVIDERS: Family Provider Family Medicine; PCP Family Medicine; Referring Provider Psychiatry & Neurology Psychiatry; Visit Provider Psychiatry & Neurology Psychiatry
DX: E22.1 Hyperprolactinemia (principal); F33.1 Major depressive disorder, recurrent, moderate; Z79.899 Other long term (current) drug therapy
CPT/HCPCS: 36415; 80053; 84146; 84439; 84443

== ENCOUNTER → 2022-07-21 12:47 | Outpatient (CLI) | payer OTHER, MEDICAID, SELFPAY ==
[2021-12-02 20:22] VITALS: BMI 26.9
[2022-07-21 13:27] LABS: BUN Creatinine Ratio 15.3 (6-22); Blood Urea Nitrogen 11 mg/dL (7-17); Calcium 9.4 mg/dL (8.4-10.2); Carbon Dioxide 27 mmol/L (22-32); Chloride 103 mmol/L (98-107); Estimated Glomerular Filt Rate > 60 mL/min (>60); Glucose 86 mg/dL (70-100); HEMOLYSIS < 15 (0-50); Potassium 4.5 mmol/L (3.4-5.1); Sodium 134 mmol/L (137-145)
[2022-07-21 15:01] LABS: Vitamin D 25 Hydroxy (D3) 50.8 ng/mL (30.0-100.0)
[2022-07-21 15:30] LABS: Follicle Stimulating Hormone 86.7 mIU/mL; Luteinizing Hormone 38.8 mIU/mL
[2022-07-21 15:45] LABS: Estradiol, Total 18.6 pg/mL
== END ==
PROVIDERS: Obstetrics & Gynecology; Family Provider Family Medicine; PCP Family Medicine; Referring Provider Student in an Organized Health Care Education/Training Program; Visit Provider Student in an Organized Health Care Education/Training Program
DX: M81.0 Age-related osteoporosis without current pathological fracture (principal); N91.2 Amenorrhea, unspecified
CPT/HCPCS: 36415; 80048; 82306; 82670; 83001; 83002

== ENCOUNTER 2022-09-13 13:00 | Day surgery (SDC) | payer OTHER, MEDICAID, SELFPAY ==
[2021-12-02 20:22] VITALS: BMI 26.9
[2022-09-13 14:00] VITALS: BP 124/84; PULSE 84; RESP 17; TEMP 36.1; O2SAT 99; BMI 25.5
[2022-09-13] MEDS: LACTATED RINGERS 1,000 ML 42 ML IV (14:10)
--- NOTE | 2022-09-13 14:29 | PM.PREOP ---
Pre-operative Note Interval Note History & Physical reviewed/Exam performed by Physician: Yes Changes to H&P: No
--- NOTE | 2022-09-13 14:29 | PM.HP.1 ---
History of Present Illness History of Present Illness Date Patient Seen: 09/13/22 Time Patient Seen: 14:30 Chief complaint: SDC Narrative: 52-year-old female status post surgery for an ankle fracture now with symptomatic implants to the lateral aspect of her ankle as well as sinus tract that been causing her some irritation. No sign of any infectious process. [facility] Medical History Allergy (Unknown) Anxiety (1989) Chronic back pain (Unknown) Chronic venous insufficiency Foot pain (2003) GERD (gastroesophageal reflux disease) (Unknown) Heavy menses (Unknown) IBS (irritable bowel syndrome) (1985) Neuropathy Obstructive sleep apnea (Unknown) Painful menstrual periods (Unknown) Restless leg syndrome (2014) Shoulder pain (Unknown) Vertigo (1979) Surgical History History of removal of laparoscopic gastric banding device (2014) Hx of laparoscopic gastric banding (2011) Hx of sinus surgery (2011) 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) Family History Grandmother Cancer Mental health problem Mother Age: 74 Mental health disorder Sister Age: 56 Heart disease Hypertension High cholesterol Mental health problem Asthma COPD (chronic obstructive pulmonary disease) Social History household members: spouse and family Smoking Status: Current every day smoker Tobacco: How many years used: 10 second hand exposure: No alcohol intake: former substance use type: does not use Meds Home Medications and Allergies Home Medications Medication Instructions Recorded Confirmed Type albuterol sulfate 90 mcg/actuation 2 puff inhalation Q4H PRN 12/30/17 09/13/22 Rx breath activated powder inhaler shortness of breath or wheezing #1 ea baclofen 20 mg tablet 20 mg PO TID PRN Muscle Spasm 7 08/14/21 09/13/22 Rx days #20 tabs calcium acetate(phosphat bind) 667 667 mg PO DAILY 12/26/21 09/13/22 History mg capsule cholecalciferol (vitamin D3) 50 50 mcg PO DAILY 12/26/21 09/13/22 History mcg (2,000 unit) capsule escitalopram oxalate 20 mg tablet 20 mg PO DAILY #90 tabs 12/26/21 09/13/22 Rx hydrochlorothiazide 25 mg tablet 25 mg PO DAILY 12/26/21 09/13/22 History naproxen sodium 220 mg capsule 220 mg PO BID 12/26/21 09/13/22 History ondansetron HCl 8 mg tablet 8 mg PO BID-TID PRN nausea and 03/19/22 09/13/22 Rx vomiting #60 tabs propranolol 20 mg tablet 20 mg PO TID #180 tabs 04/17/22 09/13/22 Rx bupropion HCl 150 mg 24 hr tablet, 300 mg PO QAM #60 tabs 05/08/22 09/13/22 Rx extended release hydroxyzine HCl 50 mg tablet 50 mg PO QID PRN anxiety #120 tabs 07/05/22 09/13/22 Rx clonazepam 0.5 mg tablet 0.5 mg PO BID PRN Anxiety #60 tabs 08/08/22 09/13/22 Rx estradiol 0.5 mg tablet 0.5 mg PO DAILY #30 tabs 09/07/22 09/13/22 Rx progesterone micronized 100 mg 100 mg PO QAM #30 caps 09/07/22 09/13/22 Rx capsule (Prometrium) Allergies Allergy/AdvReac Type Severity Reaction Status Date / Time No Known Drug Allergies Allergy Verified 09/13/22 13:48 Exam Vital Signs (past 8 hours): - 09/13/22 14:00 Temperature 97 F L Pulse Rate 84 Respiratory Rate 17 Blood Pressure 124/84 Pulse Oximetry 99 Oxygen Delivery Method Room Air Oxygen Delivery Method Room Air Narrative Exam Narrative: On physical exam no sign of any swelling or redness around the ankle. No sign of any infectious process. Patient does have some tenderness to palpation over the lateral aspect of the ankle. Patient has rather skinny so not much in the way of adipose tissue around the ankle. Able to dorsiflex and plantar flex with no pain or instability. Palpable pedal pulses. Tibiotalar joint stable to stress. Assessment & Plan Assessment & Plan narrative: Patient is status post surgery to her left ankle now with symptomatic implant. Patient is interested in having the lateral plate removed as well as the sinus tract excised. Patient fully understands the risks and limitations associated with the procedure and all of her questions and concerns were answered to her full satisfaction. The risk, benefits, alternatives, possible complications, operative course, and postop outcomes were discussed. Complications including but not limiting to bleeding, infection, fracture, nerve injury, continued pain postoperatively or instability postoperatively were discussed in detail. Medical complications including but not limited to deep venous thrombosis event, anesthesia complications with excessive bleeding, vascular events or cardiac events and other possible complications were discussed in detail. Need for postoperative rehabilitation and anticipated hospital stay and clinical course were discussed in detail. Patient acknowledges understanding and elects to proceed with surgery.
[2022-09-13] MEDS: CEFAZOLIN 2 GM/100 ML PREMIX 100 ML IV (14:55)
[2022-09-13] MEDS: BUPIVACAINE 0.5% (PF) 30 ML, EPINEPHrine 0.15 MG INJ (15:13)
--- NOTE | 2022-09-13 15:15 | SUR.OPER ---
Supine on padded OR bed, head on pillow, arms secured on padded arm boards at <90 degrees abduction, legs uncrossed, safety belt at thigh, tape over blanket over lower legs.
--- NOTE | 2022-09-13 15:49 | PM.OP.1 ---
Operative Date/Time/Diagnoses Date of procedure: 09/13/22 Time of procedure: 14:45 Pre-op diagnosis: Left ankle fracture status post open reduction internal fixation with symptomatic implant as well as a sinus track. Post-op diagnosis: same Procedure & Clinicians Procedure: Removal of distal fibular plate with excision of sinus tract as well as irrigation and debridement. Same procedure as scheduled: Yes Indications: Painful distal fibular implant with a sinus track. Surgeon: Arik Carroll Click Yes if Unassisted: Yes Anesthesia Type: General Operative Notes Findings: Well-healed distal fibular fracture. No sign of any loosening or failure. No sign of any infectious process. Due to how skinny the patient was she was getting some internal irritation from 1 of the screw heads from the plate. Closure Type: primary Estimated Blood Loss (mL): 0 Tourniquet time (min): 34 Procedure in detail: On date of service, patient was met in the holding area where her operative site was signed and witnessed by the OR staff. Surgeries once again discussed with the patient and any remaining questions or concerns she had were answered fully. Patient was taken back to the operating theater. Placed on the operating table in a supine position. Great care was taken to ensure that all bony prominences were appropriately padded. Well-padded tourniquet was placed up along the left leg. Time-out was performed verifying patient's name, procedure, and operative site. Left leg was prepped and draped in normal sterile fashion. Esmarch was used to exsanguinate the limb and the tourniquet was turned up to 250 mm of mercury. Ten blade was used to incise through skin and fascial tissue. An incision was made starting at the tip of the distal fibula and extending proximally. Deep knife was used to continue sharp dissection down to the plate. Fifteen blade was also used to excise the sinus tract. Sharp dissection was continued with a deep knife until the plate was visualized. Once the plate was fully visualize the 9 screws were removed as well as the plate. Good signs of a healed distal fibular fracture with no nonunion. All screws came out without any issues. No screw breakage. The wound was then copiously irrigated. Rongeur was used to debride around the area of the sinus track. The wound was then copiously irrigated. It was closed in layered fashion. Patient's leg was cleaned, dried, and dressed and a splint was placed. Patient was extubated and taken to the PACU in stable condition. Complications: none Post-operative Condition: stable Disposition: PACU Plan for aftercare: Patient can weightbear as tolerated. Outer dressing can be removed in 48 hours
[2022-09-13 15:51] VITALS: BP 109/74; PULSE 77; RESP 12; TEMP 36.3; O2SAT 94
[2022-09-13 15:56] VITALS: BP 136/91; PULSE 87; RESP 16; O2SAT 96
[2022-09-13 16:01] VITALS: BP 109/77; PULSE 89; RESP 16; O2SAT 97
[2022-09-13 16:06] VITALS: BP 146/86; PULSE 80; RESP 13; O2SAT 97
== END 2022-09-13 16:55 | disposition home or self-care (01) ==
PROVIDERS: Family Provider Family Medicine; PCP Family Medicine; Referring Provider Orthopaedic Surgery; Visit Provider Orthopaedic Surgery
PROC: (CPT 20680; principal; 2022-09-13 14:45)
DX: T84.84XA Pain due to internal orthopedic prosthetic devices, implants and grafts, initial encounter (principal); Z98.890 Other specified postprocedural states
CPT/HCPCS: 20680; J0171; J0690; J2250; J3010

== ENCOUNTER → 2022-11-05 11:53 | Outpatient (CLI) | payer OTHER, MEDICAID, SELFPAY ==
[2021-12-02 20:22] VITALS: BMI 26.9
--- NOTE | 2022-11-05 | DI.MG.S_ITS ---
BILATERAL DIGITAL SCREENING MAMMOGRAM 3D/2D WITH CAD: 11/05/2022 CLINICAL: Routine screening. Comparison is made to exam dated: 06/21/2016 mammogram - [facility]. There are scattered areas of fibroglandular density in both breasts (category b / 25%-50% glandular tissue). Current study was also evaluated with a Computer Aided Detection (CAD) system. No significant masses, calcifications, or other findings are seen in either breast. There has been no significant interval change. IMPRESSION: NEGATIVE There is no mammographic evidence of malignancy. A 1 year screening mammogram is recommended. Based on the Tyrer Cuzick model (a risk assessment model) the patient's lifetime risk is 7.1% and her 10 year risk is 1.6%. According to the ACR, ACS, and NCCN guidelines, an annual breast MRI exam along with mammogram is recommended if the patient's lifetime risk is 20% or greater. This exam was interpreted at Station ID: [id number]. NOTE: For mammograms, a report in lay terms will be sent to the patient. Approximately 15% of breast malignancies will not be visualized mammographically. In the management of a palpable breast mass, a negative mammogram must not discourage biopsy of a clinically suspicious lesion. Electronically Signed By: Alessandro [email or web address]/[email or web address]:11/05/2022 12:58:07 letter sent: Normal Exam ACR BI-RADS Category 1: Negative [id number]
== END ==
PROVIDERS: Family Provider Family Medicine; PCP Family Medicine; Referring Provider Family Medicine; Visit Provider Family Medicine
DX: Z12.31 Encounter for screening mammogram for malignant neoplasm of breast (principal)
CPT/HCPCS: 77063; 77067

== ENCOUNTER 2022-12-15 18:54 | Emergency (ER) | payer OTHER, MEDICAID, SELFPAY ==
[2021-12-02 20:22] VITALS: BMI 26.9
[2022-12-15] VITALS (12 sets, daily range): BP systolic 106–127; BP diastolic 56–79; PULSE 66–97; RESP 16–28; O2SAT 93–98; BMI 25.9
--- NOTE | 2022-12-15 18:57 | ED.GENADULT ---
HPI - General Adult General Chief complaint: Chest Pain Stated complaint: chest pain/muscle spasm/anxiety Time Seen by Provider: 12/15/22 18:57 History of Present Illness HPI narrative: 52-year-old female smoker with history of reactive airway disease and anxiety presents with a chief complaint of 3 or 4 days of persistent spasming type anterior chest pain. She states that it is sharp and stabbing and seems to be made worse with deep breath and cough. She has improved symptoms with rest. She states that it does radiate to her back. She states that she is short of breath because she feels like she can not breathe. She denies any exertional symptoms or associated symptoms such as dizziness, weakness or lightheadedness, no unexplained diaphoresis, nausea or vomiting. She denies any recent travel, injury or trauma, history of blood clot or similar symptoms. She did take a baclofen 1-2 hours prior to her arrival with minimal relief. Related Data Home Medications Medication Instructions Recorded Confirmed calcium acetate(phosphat bind) 667 667 mg PO DAILY 12/26/21 09/13/22 mg capsule cholecalciferol (vitamin D3) 50 50 mcg PO DAILY 12/26/21 09/13/22 mcg (2,000 unit) capsule hydrochlorothiazide 25 mg tablet 25 mg PO DAILY 12/26/21 09/13/22 naproxen sodium 220 mg capsule 220 mg PO BID 12/26/21 09/13/22 Previous Rx's Medication Instructions Recorded albuterol sulfate 90 mcg/actuation 2 puff inhalation Q4H PRN 12/30/17 breath activated powder inhaler shortness of breath or wheezing #1 ea baclofen 20 mg tablet 20 mg PO TID PRN Muscle Spasm 7 08/14/21 days #20 tabs ondansetron HCl 8 mg tablet 8 mg PO BID-TID PRN nausea and 03/19/22 vomiting #60 tabs propranolol 20 mg tablet 20 mg PO TID #180 tabs 04/17/22 estradiol 0.5 mg tablet 0.5 mg PO DAILY #30 tabs 09/07/22 progesterone micronized 100 mg 100 mg PO QAM #30 caps 09/07/22 capsule (Prometrium) hydrocodone 5 mg-acetaminophen 325 2 tab PO Q4-6H PRN pain #40 tabs 09/13/22 mg tablet bupropion HCl 150 mg 24 hr tablet, 300 mg PO QAM #60 tabs 10/30/22 extended release clonazepam 0.5 mg tablet 0.5 mg PO BID PRN Anxiety #60 tabs 10/30/22 escitalopram oxalate 20 mg tablet 20 mg PO DAILY #90 tabs 10/30/22 hydroxyzine HCl 50 mg tablet 50 mg PO QID PRN anxiety #150 tabs 11/22/22 amoxicillin 500 mg capsule 1,000 mg PO Q8H 5 days #30 caps 12/15/22 celecoxib 100 mg capsule (Celebrex) 100 mg PO BID #20 caps 12/15/22 Allergies Allergy/AdvReac Type Severity Reaction Status Date / Time No Known Drug Allergies Allergy Verified 09/13/22 13:48 Review of Systems Review of Systems Narrative: GENERAL: Denies chills, fatigue, malaise, fever, sweats. HEENT: Denies sinus pain, ear pain, sore throat, difficulty swallowing, dizziness. RESPIRATORY: See HPI CARDIOVASCULAR: See HPI GASTROINTESTINAL: Denies nausea, vomiting, abdominal pain, diarrhea, constipation, melena. : Denies dysuria, frequency, incontinence, hematuria, urinary retention. MUSCULOSKELETAL: denies weakness, joint pain, or bony pain SKIN: Denies rash, skin lesions, or other NEUROLOGIC: Denies weakness, headache, numbness, change in speech, confusion, seizures, incoordination. PSYCHIATRIC: No concerning psychosocial issues. 12 point review of systems is negative except for those stated above Patient History Medical History Allergy (Unknown) Anxiety (1989) Chronic back pain (Unknown) Chronic venous insufficiency Foot pain (2003) GERD (gastroesophageal reflux disease) (Unknown) Heavy menses (Unknown) IBS (irritable bowel syndrome) (1985) Neuropathy Obstructive sleep apnea (Unknown) Painful menstrual periods (Unknown) Restless leg syndrome (2014) Shoulder pain (Unknown) Vertigo (1979) Surgical History History of removal of laparoscopic gastric banding device (2014) Hx of laparoscopic gastric banding (2011) Hx of sinus surgery (2011) 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) Family History Grandmother Cancer Mental health problem Mother Age: 74 Mental health disorder Sister Age: 56 Heart disease Hypertension High cholesterol Mental health problem Asthma COPD (chronic obstructive pulmonary disease) Social History household members: spouse and family Smoking Status: Current every day smoker Tobacco: How many years used: 10 second hand exposure: No alcohol intake: former substance use type: does not use Smoking Status: Current every day smoker tobacco type: cigarettes alcohol intake frequency: 3 or more drinks per day Substance Use Type: does not use Exam Narrative Exam Narrative: GENERAL: [52] year old patient appears stated age. Well-developed patient, in mild distress. Anxious HEAD: Atraumatic. Normocephalic. EYES: Pupils equal round and reactive. Extraocular motions intact. No scleral icterus. No injection or drainage. ENT: Nose without bleeding, purulent drainage. Throat without erythema, tonsillar hypertrophy or exudate. Airway patent. NECK: Trachea midline. Non tender CARDIOVASCULAR: Regular rate and rhythm without murmurs, gallops, or rubs. Reproducible sharp and stabbing chest pain on palpation RESPIRATORY: Clear to auscultation, rapid shallow breathing, prolonged expiratory phase, no wheezes, rales or rhonchi GASTROINTESTINAL: Abdomen soft, non-tender, nondistended. EXTREMITIES: No edema or joint tenderness. BACK: Nontender without deformity or crepitance. No flank tenderness. NEURO: AOx3. SKIN: No rash or erythema of visible areas Initial Vital Signs Initial Vital Signs: Vital Signs Pulse Rate 97 H 12/15/22 19:00 Respiratory Rate 26 H 12/15/22 19:00 Blood Pressure 113/76 12/15/22 19:00 Pulse Oximetry 98 12/15/22 19:00 Oxygen Delivery Method Room Air 12/15/22 19:00 Scores HEART Score Heart Score history: Slightly Suspicious Heart Score EKG: Non-Specific repolarization disturbance Heart Score Age: 45-64 years old Heart Score risk factors: 1-2 risk factors Heart Score troponin: < or = to normal limit Heart Score Total: 3 Course Orders Ordered: ED Orders 12/15/22 19:02 Chest [XR chest 1V] Stat EKG-12 Lead Stat 12/15/22 19:08 Consult to [facility] [place]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 Stat 12/15/22 19:18 Complete Blood Count AUTO DIFF Stat Comprehensive Metabolic Panel Stat D Dimer Stat Magnesium Stat NT-proBNP (BNP-Adult 18+) Stat Troponin & CK Cardiac Panel Stat 12/15/22 19:54 CT angio chest PE protocol Stat 12/15/22 21:40 UA Complete [Urinalysis and Microscopic] Stat 12/15/22 22:55 Troponin & CK Cardiac Panel Stat Discontinued Medications Sodium Chloride (Normal Saline 0.9%) 1,000 mls @ 1,000 mls/hr IV BOLUS ONE Stop: 12/15/22 20:01 Last Infusion: 12/15/22 20:04 Dose: 0 mls/hr Documented By: Admin: 12/15/22 19:24 Dose: 1,000 mls/hr Documented By: Ceftriaxone Sodium 1,000 mg/ (Sodium Chloride) 100 mls @ 200 mls/hr IV NOW ONE Stop: 12/15/22 21:03 Last Infusion: 12/15/22 21:36 Dose: 0 mls/hr Documented By: Admin: 12/15/22 21:08 Dose: 200 mls/hr Documented By: Ketorolac Tromethamine (Ketorolac 30 Mg/Ml Vial) 15 mg IV NOW ONE Stop: 12/15/22 22:39 Last Admin: 12/15/22 22:43 Dose: 15 mg Documented By: Lorazepam (Lorazepam 2 Mg/Ml Inj) 0.5 mg IV NOW ONE Stop: 12/15/22 19:04 Last Admin: 12/15/22 19:24 Dose: 0.5 mg Documented By: Lorazepam (Lorazepam 2 Mg/Ml Inj) 0.5 mg IV NOW ONE Stop: 12/15/22 19:55 Last Admin: 12/15/22 20:00 Dose: 0.5 mg Documented By: Lorazepam (Lorazepam 2 Mg/Ml Inj) 1 mg IV NOW ONE Stop: 12/15/22 22:48 Last Admin: 12/15/22 22:53 Dose: 1 mg Documented By: Pantoprazole Sodium (Pantoprazole 40 Mg Vial) 40 mg IV NOW ONE Stop: 12/15/22 21:03 Last Admin: 12/15/22 21:08 Dose: 40 mg Documented By: Vital Signs Vital signs: Vital Signs - 8 hr 12/15/22 19:00 12/15/22 19:16 12/15/22 19:30 Pulse Rate 97 H 91 H Respiratory Rate 26 H Blood Pressure 113/76 107/57 L Pulse Oximetry 98 97 Oxygen Delivery Method Room Air 12/15/22 19:30 12/15/22 20:00 12/15/22 20:00 Pulse Rate 85 85 Respiratory Rate 28 H 24 Blood Pressure 108/63 Pulse Oximetry 93 96 Oxygen Delivery Method 12/15/22 20:30 12/15/22 21:00 12/15/22 21:44 Pulse Rate 85 73 Respiratory Rate 28 H 17 Blood Pressure 114/79 Pulse Oximetry 94 95 Oxygen Delivery Method Room Air 12/15/22 21:44 12/15/22 22:00 12/15/22 22:30 Pulse Rate 87 83 83 Respiratory Rate 23 23 Blood Pressure Pulse Oximetry 96 97 Oxygen Delivery Method 12/15/22 22:56 12/15/22 22:56 12/15/22 23:00 Pulse Rate 75 Respiratory Rate 27 H Blood Pressure 110/56 L 127/60 Pulse Oximetry 94 Oxygen Delivery Method Room Air 12/15/22 23:00 12/15/22 23:30 12/15/22 23:30 Pulse Rate 66 67 Respiratory Rate 20 16 Blood Pressure 106/59 L Pulse Oximetry 95 94 Oxygen Delivery Method Room Air Medical Decision Making Lab Data 12/15/22 19:18 12/15/22 19:18 Labs: Lab Results 12/15/22 12/15/22 12/15/22 Range/Units 19:18 19:18 19:18 WBC 9.8 (4.5-11.0) X10^3/uL RBC 4.23 (4.0-5.2) X10^6/uL Hgb 12.4 (12.0-16.0) g/dL Hct 36.6 (36-46) % MCV 86.4 (80-100) fL MCH 29.3 (26-34) PG MCHC 33.9 (30-36) % RDW 13.7 (11.6-14.8) % Plt Count 242 (150-400) X10^3/uL Neut % (Auto) 79.8 H (50-75) % Lymph % (Auto) 15.5 L (25-40) % Delta % (Auto) 3.3 (3-14) % Eos % (Auto) 1.0 L (2-4) % Baso % (Auto) 0.4 (0-2) % Neut # (Auto) 7900 H (4067-3207) /uL Lymph # (Auto) 1500 (5362-2424) /uL Delta # (Auto) 300 (0-900) /uL Eos # (Auto) 100 (0-450) /uL Baso # (Auto) 0 (0-100) /uL D-Dimer 650 H (<500) ng/ml Sodium 135 L (137-145) mmol/L Potassium 3.6 (3.4-5.1) mmol/L Chloride 98 (98-107) mmol/L Carbon Dioxide 28 (22-32) mmol/L BUN 13 (7-17) mg/dL Creatinine 0.94 (0.52-1.04) mg/dL Estimated GFR > 60 (>60) mL/min BUN/Creatinine Ratio 13.8 (6-22) Glucose 89 (70-100) mg/dL Calcium 9.9 (8.4-10.2) mg/dL Magnesium 2.0 (1.6-2.3) mg/dL Total Bilirubin 0.8 (0.2-1.3) mg/dL AST 55 H (14-36) IU/L ALT 43 H (<35) IU/L Alkaline Phosphatase 148 H (38-126) U/L Total Creatine Kinase 83 (30-135) U/L Troponin I < 0.012 (0.01-0.034) ng/mL NT-Pro-B Natriuret Pep 99 (<125) pg/mL Total Protein 7.3 (6.3-8.2) g/dL Albumin 4.3 (3.5-5.0) g/dL Globulin 3.0 (1.7-4.1) g/dL Albumin/Globulin Ratio 1.4 (1.0-2.8) Urine Color Urine Appearance Urine pH (4.5-8.0) Ur Specific [place] (1.000-1.035) Urine Protein (Negative) Urine Glucose (UA) (Negative) g/dL Urine Ketones (NEGATIVE) Urine Occult Blood (Negative) Urine Nitrate (Negative) Urine Bilirubin (NEGATIVE) Urine Urobilinogen (0.2) E.U./dL Ur Leukocyte Esterase (NEGATIVE) Urine RBC (0-5/HPF) Urine WBC (0-5/HPF) Ur Squamous Epith Cells (0-5/HPF) Calcium Oxalate Crystal Urine Bacteria (None) Ur Culture Indicated? 12/15/22 12/15/22 Range/Units 21:40 22:55 WBC (4.5-11.0) X10^3/uL RBC (4.0-5.2) X10^6/uL Hgb (12.0-16.0) g/dL Hct (36-46) % MCV (80-100) fL MCH (26-34) PG MCHC (30-36) % RDW (11.6-14.8) % Plt Count (150-400) X10^3/uL Neut % (Auto) (50-75) % Lymph % (Auto) (25-40) % Delta % (Auto) (3-14) % Eos % (Auto) (2-4) % Baso % (Auto) (0-2) % Neut # (Auto) (5338-1829) /uL Lymph # (Auto) (5264-1913) /uL Delta # (Auto) (0-900) /uL Eos # (Auto) (0-450) /uL Baso # (Auto) (0-100) /uL D-Dimer (<500) ng/ml Sodium (137-145) mmol/L Potassium (3.4-5.1) mmol/L Chloride (98-107) mmol/L Carbon Dioxide (22-32) mmol/L BUN (7-17) mg/dL Creatinine (0.52-1.04) mg/dL Estimated GFR (>60) mL/min BUN/Creatinine Ratio (6-22) Glucose (70-100) mg/dL Calcium (8.4-10.2) mg/dL Magnesium (1.6-2.3) mg/dL Total Bilirubin (0.2-1.3) mg/dL AST (14-36) IU/L ALT (<35) IU/L Alkaline Phosphatase (38-126) U/L Total Creatine Kinase 78 (30-135) U/L Troponin I < 0.012 (0.01-0.034) ng/mL NT-Pro-B Natriuret Pep (<125) pg/mL Total Protein (6.3-8.2) g/dL Albumin (3.5-5.0) g/dL Globulin (1.7-4.1) g/dL Albumin/Globulin Ratio (1.0-2.8) Urine Color Yellow Urine Appearance Clear Urine pH 6.5 (4.5-8.0) Ur Specific [place] <=1.005 (1.000-1.035) Urine Protein Negative (Negative) Urine Glucose (UA) Negative (Negative) g/dL Urine Ketones Trace H (NEGATIVE) Urine Occult Blood Negative (Negative) Urine Nitrate Negative (Negative) Urine Bilirubin Negative (NEGATIVE) Urine Urobilinogen 1.0 (0.2) E.U./dL Ur Leukocyte Esterase Negative (NEGATIVE) Urine RBC 0-1/hpf (0-5/HPF) Urine WBC None seen (0-5/HPF) Ur Squamous Epith Cells 1-5 /hpf (0-5/HPF) Calcium Oxalate Crystal Occasional H Urine Bacteria Few (2-10) H (None) Ur Culture Indicated? Cult not indicated Urine Dip Bedside Urine Glucose Negative Bedside Urine Bilirubin - Negative Bedside Urine Ketone +/- 5 Urine Specific [place] 1.01 Bedside Urine Occult Blood - Negative Bedside Urine pH 7 Bedside Urine Protein - Negative Bedside Urine Urobilinogen - Negative Bedside Urine Nitrite - Negative Bedside Urine Leukocytes - Negative Esterase Point of care testing: Urine Dip Bedside Urine Glucose Negative Bedside Urine Bilirubin - Negative Bedside Urine Ketone +/- 5 Urine Specific [place] 1.01 Bedside Urine Occult Blood - Negative Bedside Urine pH 7 Bedside Urine Protein - Negative Bedside Urine Urobilinogen - Negative Bedside Urine Nitrite - Negative Bedside Urine Leukocytes - Negative Esterase MDM Narrative Medical decision making narrative: CC: 52-year-old female smoker with 3-4 days of anterior chest pain Complicating co-morbidities: Smoking Data collected from: Patient Medical records reviewed: Prior notes reviewed in our EMR Differential considered, but not limited to: Cardiac ischemia versus pulmonary embolism versus dissection versus muscle spasm versus pneumonia versus other Exam documented above, pertinent findings include: Visibly anxious, heart rate regular, decreased lung sounds throughout, rapid and shallow breathing, reproducible anterior chest pain Lab Test results independently reviewed as above. Pertinent findings: No leukocytosis or left shift, no signs of anemia, troponin negative x2. D-dimer above age corrected cutoff Independently reviewed EKG as above Imaging studies independently reviewed: CT angiogram demonstrates no central pulmonary embolism. Bilateral interstitial and ground-glass infiltrates consistent with pneumonia, mild concentric thickening of the distal esophagus Scores Used: HEART Treatments: Ativan, Toradol, Rocephin Re-evaluations: Patient work of breathing improved Discussion: Patient with persistent sharp and stabbing pleuritic-type chest pain for the past 4 days. EKGs nonischemic, troponin x2 is negative, no exertional symptoms or cardiac equivalent. Pulmonary embolism also considered, D-dimer ordered which was above the age corrected cutoff, CT angiogram shows no PE but does note pneumonia. She does state that she has been coughing and that deep breaths and cough seemed to worsen her pain. Additionally there is a reproducible pain that is consistent with what brought her in. At no point has she hypoxemic, nor does she require supplemental oxygen, there are no signs of sepsis. She is appropriate for discharge. Disposition: see below, along with detailed discharge instructions that have been reviewed with patient as well as indications for ED re-evaluation and additional outpatient follow up Discharge Plan Departure Patient Disposition: Home Clinical Impression: Atypical chest pain, Bilateral pneumonia Instructions: DI for Pneumonia -- Adult, DI for Atypical Chest Pain Activity Restrictions/Additional Instructions: *You have been diagnosed with [atypical chest pain and mild bilateral pneumonia. As we discussed your history and physical exam as well as labs and imaging are reassuring. There is no evidence of heart attack or blood clot but there is suggestion of bilateral pneumonia. Thankfully there is no indication that you would require hospitalization to treat this.] *What to do: *Please continue to take your regular medications as directed. [x ] New medication prescriptions sent to your pharmacy: [[facility] ] [ ] New medication written as a paper prescription [ ] No new medications given *Please follow up with your primary care provider in 2-3 days, call for an appointment. Let them know you were seen in the Emergency Department and that we ask that you be seen in follow up. We will electronically transmit a record of today's note if your PCP is in our system *If you do not have a primary care provider please contact the [facility] Resource line at [phone]. They will ask some questions about your medical history and help get you set up with a doctor in the community. *Return to Emergency Department if you should have any new, worsening or concerning symptoms, such as [fever greater than 101 F, shaking chills, worsening pain, persistent vomiting or other bothersome symptoms] Prescriptions: New amoxicillin 500 mg capsule 1,000 mg PO Q8H 5 Days Qty: 30 0RF celecoxib [Celebrex] 100 mg capsule 100 mg PO BID Qty: 20 0RF No Action propranolol 20 mg tablet 20 mg PO TID Qty: 180 3RF Patient Comments: Takes for PTSD hydroxyzine HCl 50 mg tablet 50 mg PO QID PRN (Reason: anxiety) Qty: 150 3RF cholecalciferol (vitamin D3) 50 mcg (2,000 unit) capsule 50 mcg PO DAILY Patient Comments: TAKE ONE CAPSULE BY MOUTH ONE TIME DAILY calcium acetate(phosphat bind) 667 mg capsule 667 mg PO DAILY hydrochlorothiazide 25 mg tablet 25 mg PO DAILY naproxen sodium 220 mg capsule 220 mg PO BID albuterol sulfate 90 mcg/actuation aerosol powdr breath activated 2 puff INHALATION Q4H PRN (Reason: shortness of breath or wheezing) Qty: 1 0RF Patient Comments: few weeks Rx Instructions: administer with spacer ondansetron HCl 8 mg tablet 8 mg PO BID-TID PRN (Reason: nausea and vomiting) Qty: 60 0RF estradiol 0.5 mg tablet 0.5 mg PO DAILY Qty: 30 11RF progesterone micronized [Prometrium] 100 mg capsule 100 mg PO QAM Qty: 30 11RF Rx Instructions: off 7 days; repeat cycle escitalopram oxalate 20 mg tablet 20 mg PO DAILY Qty: 90 1RF bupropion HCl 150 mg tablet extended release 24 hr 300 mg PO QAM Qty: 60 2RF clonazepam 0.5 mg tablet 0.5 mg PO BID PRN (Reason: Anxiety) Qty: 60 2RF Rx Instructions: Do not take with alcohol. hydrocodone-acetaminophen 5-325 mg tablet 2 tab PO Q4-6H PRN (Reason: pain) Qty: 40 0RF baclofen 20 mg tablet 20 mg PO TID PRN (Reason: Muscle Spasm) 7 Days Qty: 20 0RF Referrals: Barry Em MD [Primary Care Provider] - Stand Alone Forms: Patient Portal/API
--- NOTE | 2022-12-15 19:02 | DI.RAD.S_ITS ---
PROCEDURE: XR CHEST 1V INDICATIONS: chest pain TECHNIQUE: One view of the chest was acquired. COMPARISON: [facility], CR, XR CHEST 1V, 12/02/2021, 15:48. [facility], CR, XR CHEST 1V, 08/11/2021, 11:45. FINDINGS: Surgical changes and devices: None. Lungs and pleura: Mild bilateral interstitial prominence that is more notable in the lung bases. No pleural effusions or pneumothorax. Mediastinum: Mediastinal contours appear normal. Heart size is normal. Bones and chest wall: No suspicious bony lesions. Overlying soft tissues appear unremarkable. IMPRESSION: Mild bilateral interstitial opacities may be chronic versus secondary to mild edema or a mild atypical or viral pneumonia. Findings are less prominent when compared to the radiographs from 12/02/2021. Approved by: Rolando Guerrero M.D. on 12/15/2022 at 19:40
[2022-12-15] MEDS: LORazepam 2 MG/ML INJ 0.5 MG IV ×2 (19:24→20:00)
[2022-12-15] MEDS: SODIUM CHLORIDE 0.9% 1,000 ML 1000 ML IV (19:24)
[2022-12-15 19:25] LABS: Add Manual Diff / Slide Review NO; Basophils Absolute Auto 0 /uL (0-100); Basophils Percent Auto 0.4 % (0-2); Eosinophils Absolute Auto 100 /uL (0-450); Hematocrit 36.6 % (36-46); Hemoglobin 12.4 g/dL (12.0-16.0); Lymphocytes Absolute Auto 1500 /uL (1100-4500); Lymphocytes Percent Auto 15.5 % (25-40); Mean Corpuscular HGB Conc 33.9 % (30-36); Mean Corpuscular Hemoglobin 29.3 PG (26-34); Mean Corpuscular Volume 86.4 fL (80-100); Monocytes Absolute Auto 300 /uL (0-900); Monocytes Percent Auto 3.3 % (3-14); Neutrophils Absolute Auto 7900 /uL (1500-7000); Neutrophils Percent Auto 79.8 % (50-75); Platelet Count 242 X10^3/uL (150-400); Red Blood Cell Count 4.23 X10^6/uL (4.0-5.2); Red Cell Distribution Width 13.7 % (11.6-14.8); White Blood Cell Count 9.8 X10^3/uL (4.5-11.0)
[2022-12-15 19:35] LABS: D Dimer 650 ng/ml (<500)
[2022-12-15 19:38] LABS: Albumin 4.3 g/dL (3.5-5.0); Albumin Globulin Ratio 1.4 (1.0-2.8); Alkaline Phosphatase 148 U/L (38-126); Aspartate Aminotransferase 55 IU/L (14-36); BUN Creatinine Ratio 13.8 (6-22); Bilirubin Total 0.8 mg/dL (0.2-1.3); Blood Urea Nitrogen 13 mg/dL (7-17); Calcium 9.9 mg/dL (8.4-10.2); Carbon Dioxide 28 mmol/L (22-32); Chloride 98 mmol/L (98-107); Creatine Kinase 83 U/L (30-135); Estimated Glomerular Filt Rate > 60 mL/min (>60); Glucose 89 mg/dL (70-100); HEMOLYSIS < 15 (0-50); Potassium 3.6 mmol/L (3.4-5.1); Sodium 135 mmol/L (137-145); Total Protein 7.3 g/dL (6.3-8.2)
[2022-12-15 19:44] LABS: Alanine Aminotransferase 43 IU/L (<35)
[2022-12-15 19:48] LABS: NT-proBNP (BNP-Adult 18+) 99 pg/mL (<125); Troponin I < 0.012 ng/mL (0.01-0.034)
--- NOTE | 2022-12-15 19:54 | DI.CT.S_ITS ---
PROCEDURE: CT ANGIO CHEST PE PROTOCOL INDICATIONS: chest pain, radiation to back, smoker, critical dimer TECHNIQUE: After the administration of intravenous contrast, 2 mm thick sections acquired from the pulmonary apices to the posterior costophrenic angles. 3-dimensional maximum intensity projection (MIP) coronal and sagittal reformats were then acquired through the thorax. For radiation dose reduction, the following was used: automated exposure control, adjustment of mA and/or kV according to patient size. COMPARISON: [facility], CR, XR CHEST 1V, 12/15/2022, 19:02. [facility], CT, CT ANGIO CHEST PE PROTOCOL, 12/02/2021, 16:30. FINDINGS: Image quality: Excellent. Pulmonary arteries: Pulmonary arteries are normal in size, and demonstrate no intraluminal filling defects to suggest central pulmonary embolism. Lungs and pleura: Bilateral patchy interstitial and ground-glass infiltrates consistent with pneumonia. No pleural effusions or pneumothorax. Central and peripheral airways are patent. Mediastinum: Heart size is normal, without pericardial effusion. No mediastinal or hilar adenopathy. Thoracic aorta is normal in caliber and enhancement. Esophagus is normal in caliber. Small hiatal hernia. Mild concentric thickening of the distal esophagus. Bones and chest wall: No suspicious bony lesions. Ribs and thoracic spine appear intact throughout. Thyroid gland is unremarkable. No axillary or supraclavicular adenopathy. Abdomen: Visualized upper abdominal solid organs appear normal in the early arterial phase of enhancement. There is gallbladder sludge or gravel stones. IMPRESSION: 1. No evidence for pulmonary embolism. 2. Bilateral interstitial and ground-glass infiltrates consistent with pneumonia. 3. Small hiatal hernia. 4. Mild concentric thickening of the distal esophagus may be secondary to gastroesophageal reflux. Consider nonurgent esophagram or EGD if clinically indicated. Dictated by: Clarence Yanez M.D. on 12/15/2022 at 20:31 Approved by: Clarence Yanez M.D. on 12/15/2022 at 20:37
[2022-12-15] MEDS: PANTOPRAZOLE 40 MG VIAL IV (21:08)
[2022-12-15] MEDS: cefTRIAXone 1,000 MG in SODIUM CHLORIDE 0.9% 100 ML 200 MG IV (21:08)
[2022-12-15 22:08] LABS: Appearance Urine UA CLEAR; Bilirubin Urine UA NEGATIVE (NEGATIVE); Color Urine UA YELLOW; Glucose Urine UA NEGATIVE (Negative); Ketones Urine UA TRACE (NEGATIVE); Leukocyte Esterase Urine UA NEGATIVE (NEGATIVE); Nitrite Urine UA NEGATIVE (Negative); Occult Blood Urine UA NEGATIVE (Negative); Protein Urine UA NEGATIVE (Negative); Specific Gravity Urine UA <=1.005 (1.000-1.035)
[2022-12-15 22:15] LABS: pH Urine UA 6.5 (4.5-8.0)
[2022-12-15 22:17] LABS: Bacteria Urine Few (2-10); Calcium Oxalate Crystals Urine Occasional; Culture Indicated Urine Cult Not Indicated; RBC Urine 0-1/HPF (0-5/HPF); Squamous Epithelial Cell Urine 1-5 /HPF (0-5/HPF); WBC Urine None Seen (0-5/HPF)
[2022-12-15] MEDS: KETOROLAC 30 MG/ML VIAL 15 MG IV (22:43)
[2022-12-15] MEDS: LORazepam 2 MG/ML INJ 1 MG IV (22:53)
--- NOTE | 2022-12-15 22:56 | PC.NURSE ---
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 Pt able to speak in full sentences, although hyperventilating. SpO2 with good pleth 95 - 100%. HR 80s. Provider made aware with orders of toradol and ativan, see MAR. Repeat troponin collected and sent.
[2022-12-15 23:11] LABS: Creatine Kinase 78 U/L (30-135)
[2022-12-15 23:24] LABS: Troponin I < 0.012 ng/mL (0.01-0.034)
== END 2022-12-15 23:54 | disposition home or self-care (01) ==
PROVIDERS: Emergency Provider Emergency Medicine; Family Provider Family Medicine; PCP Family Medicine
DX: R07.89 Other chest pain (principal); J18.9 Pneumonia, unspecified organism
CPT/HCPCS: 36415; 71045; 71275; 80053; 81001; 81003; 82550; 83735; 83880; 84484; 85025; 85379; 93005; 96361; 96365; 96375; 96376; 99284; C9113; J0696; J1885; J2060; Q9967

== ENCOUNTER 2023-01-13 01:07 | Emergency (ER) | payer OTHER, MEDICAID, SELFPAY ==
[2021-12-02 20:22] VITALS: BMI 26.9
--- NOTE | 2023-01-13 01:14 | ED.GENADULT ---
HPI - General Adult General Stated complaint: pneumonia not gettting better Time Seen by Provider: 01/13/23 01:14 Related Data Home Medications Medication Instructions Recorded Confirmed calcium acetate(phosphat bind) 667 667 mg PO DAILY 12/26/21 09/13/22 mg capsule cholecalciferol (vitamin D3) 50 50 mcg PO DAILY 12/26/21 09/13/22 mcg (2,000 unit) capsule hydrochlorothiazide 25 mg tablet 25 mg PO DAILY 12/26/21 09/13/22 naproxen sodium 220 mg capsule 220 mg PO BID 12/26/21 09/13/22 Previous Rx's Medication Instructions Recorded albuterol sulfate 90 mcg/actuation 2 puff inhalation Q4H PRN 12/30/17 breath activated powder inhaler shortness of breath or wheezing #1 ea baclofen 20 mg tablet 20 mg PO TID PRN Muscle Spasm 7 08/14/21 days #20 tabs ondansetron HCl 8 mg tablet 8 mg PO BID-TID PRN nausea and 03/19/22 vomiting #60 tabs propranolol 20 mg tablet 20 mg PO TID #180 tabs 04/17/22 estradiol 0.5 mg tablet 0.5 mg PO DAILY #30 tabs 09/07/22 progesterone micronized 100 mg 100 mg PO QAM #30 caps 09/07/22 capsule (Prometrium) hydrocodone 5 mg-acetaminophen 325 2 tab PO Q4-6H PRN pain #40 tabs 09/13/22 mg tablet bupropion HCl 150 mg 24 hr tablet, 300 mg PO QAM #60 tabs 10/30/22 extended release clonazepam 0.5 mg tablet 0.5 mg PO BID PRN Anxiety #60 tabs 10/30/22 escitalopram oxalate 20 mg tablet 20 mg PO DAILY #90 tabs 10/30/22 hydroxyzine HCl 50 mg tablet 50 mg PO QID PRN anxiety #150 tabs 11/22/22 celecoxib 100 mg capsule (Celebrex) 100 mg PO BID #20 caps 12/15/22 Allergies Allergy/AdvReac Type Severity Reaction Status Date / Time No Known Drug Allergies Allergy Verified 09/13/22 13:48 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) Family History Grandmother Cancer Mental health problem Mother Age: 75 Mental health disorder Sister Age: 57 Heart disease Hypertension High cholesterol Mental health problem Asthma COPD (chronic obstructive pulmonary disease) Social History household members: spouse and family Smoking Status: Current every day smoker Tobacco: How many years used: 10 second hand exposure: No alcohol intake: former substance use type: does not use Smoking Status: Current every day smoker tobacco type: cigarettes alcohol intake frequency: a few times a week Substance Use Type: does not use Discharge Plan Departure Prescriptions: No Action propranolol 20 mg tablet 20 mg PO TID Qty: 180 3RF Patient Comments: Takes for PTSD hydroxyzine HCl 50 mg tablet 50 mg PO QID PRN (Reason: anxiety) Qty: 150 3RF cholecalciferol (vitamin D3) 50 mcg (2,000 unit) capsule 50 mcg PO DAILY Patient Comments: TAKE ONE CAPSULE BY MOUTH ONE TIME DAILY calcium acetate(phosphat bind) 667 mg capsule 667 mg PO DAILY hydrochlorothiazide 25 mg tablet 25 mg PO DAILY naproxen sodium 220 mg capsule 220 mg PO BID albuterol sulfate 90 mcg/actuation aerosol powdr breath activated 2 puff INHALATION Q4H PRN (Reason: shortness of breath or wheezing) Qty: 1 0RF Patient Comments: few weeks Rx Instructions: administer with spacer ondansetron HCl 8 mg tablet 8 mg PO BID-TID PRN (Reason: nausea and vomiting) Qty: 60 0RF estradiol 0.5 mg tablet 0.5 mg PO DAILY Qty: 30 11RF progesterone micronized [Prometrium] 100 mg capsule 100 mg PO QAM Qty: 30 11RF Rx Instructions: off 7 days; repeat cycle escitalopram oxalate 20 mg tablet 20 mg PO DAILY Qty: 90 1RF bupropion HCl 150 mg tablet extended release 24 hr 300 mg PO QAM Qty: 60 2RF clonazepam 0.5 mg tablet 0.5 mg PO BID PRN (Reason: Anxiety) Qty: 60 2RF Rx Instructions: Do not take with alcohol. hydrocodone-acetaminophen 5-325 mg tablet 2 tab PO Q4-6H PRN (Reason: pain) Qty: 40 0RF celecoxib [Celebrex] 100 mg capsule 100 mg PO BID Qty: 20 0RF baclofen 20 mg tablet 20 mg PO TID PRN (Reason: Muscle Spasm) 7 Days Qty: 20 0RF Referrals: Barry Em MD [Primary Care Provider] -
[2023-01-13 01:24] VITALS: BP 117/81; PULSE 98; RESP 16; TEMP 36.3; O2SAT 96; BMI 27.0
--- NOTE | 2023-01-13 01:32 | PC.NURSE ---
see triage note for assessment
== END 2023-01-13 02:36 | disposition left against medical advice (07) ==
PROVIDERS: Emergency Provider Emergency Medicine; Family Provider Family Medicine; PCP Family Medicine
CPT/HCPCS: 99281

== ENCOUNTER → 2023-02-21 15:38 | Outpatient (CLI) | payer OTHER, MEDICAID, SELFPAY ==
[2021-12-02 20:22] VITALS: BMI 26.9
[2023-02-21 16:13] LABS: Add Manual Diff / Slide Review NO; Basophils Absolute Auto 100 /uL (0-100); Eosinophils Absolute Auto 100 /uL (0-450); Hemoglobin 10.9 g/dL (12.0-16.0); Lymphocytes Absolute Auto 3500 /uL (1100-4500); Lymphocytes Percent Auto 34.5 % (25-40); Mean Corpuscular HGB Conc 33.1 % (30-36); Mean Corpuscular Hemoglobin 27.9 PG (26-34); Mean Corpuscular Volume 84.2 fL (80-100); Monocytes Absolute Auto 600 /uL (0-900); Monocytes Percent Auto 6.2 % (3-14); Neutrophils Absolute Auto 5900 /uL (1500-7000); Neutrophils Percent Auto 57.3 % (50-75); Platelet Count 522 X10^3/uL (150-400); Red Blood Cell Count 3.92 X10^6/uL (4.0-5.2); Red Cell Distribution Width 16.4 % (11.6-14.8); White Blood Cell Count 10.3 X10^3/uL (4.5-11.0)
[2023-02-21 16:37] LABS: Alanine Aminotransferase 12 IU/L (<35); Albumin Globulin Ratio 1.3 (1.0-2.8); Alkaline Phosphatase 118 U/L (38-126); Aspartate Aminotransferase 19 IU/L (14-36); BUN Creatinine Ratio 16.4 (6-22); Bilirubin Total 0.3 mg/dL (0.2-1.3); Blood Urea Nitrogen 12 mg/dL (7-17); Calcium 8.7 mg/dL (8.4-10.2); Carbon Dioxide 25 mmol/L (22-32); Chloride 102 mmol/L (98-107); Estimated Glomerular Filt Rate > 60 mL/min (>60); Globulin 2.4 g/dL (1.7-4.1); Glucose 65 mg/dL (70-100); HEMOLYSIS < 15 (0-50); Potassium 4.1 mmol/L (3.4-5.1); Sodium 131 mmol/L (137-145); Total Protein 5.4 g/dL (6.3-8.2)
[2023-02-21 16:55] LABS: Free T4, Direct Thyroxine 0.94 ng/dL (0.78-2.19)
== END ==
PROVIDERS: Family Provider Family Medicine; PCP Family Medicine; Referring Provider Psychiatry & Neurology Psychiatry; Visit Provider Psychiatry & Neurology Psychiatry
DX: F33.1 Major depressive disorder, recurrent, moderate (principal); E22.1 Hyperprolactinemia; F41.1 Generalized anxiety disorder; F41.0 Panic disorder [episodic paroxysmal anxiety]; F10.21 Alcohol dependence, in remission; Z79.899 Other long term (current) drug therapy
CPT/HCPCS: 36415; 80053; 84439; 84443; 85025; 99214

== ENCOUNTER 2023-07-09 01:23 | Observation (INO) | payer OTHER, MEDICAID, SELFPAY ==
[2021-12-02 20:22] VITALS: BMI 26.9
[2023-07-09] VITALS (20 sets, daily range): BP systolic 92–134; BP diastolic 53–87; PULSE 54–98; RESP 10–23; TEMP 35.7–36.5; O2SAT 95–100; BMI 24.2
--- NOTE | 2023-07-09 01:39 | DI.CT.S_ITS ---
PROCEDURE: CT HEAD/BRAIN WO CON INDICATIONS: AMS TECHNIQUE: Noncontrast 4.5 mm thick angled axial sections acquired from the foramen magnum to the vertex, with coronal and sagittal reformats. For radiation dose reduction, the following was used: automated exposure control, adjustment of mA and/or kV according to patient size. COMPARISON: [facility], CT, CT HEAD/BRAIN WO CON, 12/02/2021, 16:09. FINDINGS: Image quality: Diagnostic. CSF spaces: Basal cisterns are patent. No extra-axial fluid collections. Ventricles are normal in size and shape. Brain: No midline shift. No intracranial masses or hemorrhage. Deshpande-white matter interface is normal. Skull and face: Calvarium and visualized facial bones are intact, without suspicious lesions. Sinuses: Visualized sinuses and mastoids are clear. IMPRESSION: No acute intracranial pathology. No significant discrepancy with the maintenance technician 2nd shift radiology preliminary report. Dictated by: Clarence Yanez M.D. on 07/09/2023 at 8:15 Approved by: Clarence Yanez M.D. on 07/09/2023 at 8:16
--- NOTE | 2023-07-09 01:40 | DI.RAD.S_ITS ---
PROCEDURE: XR CHEST 1V INDICATIONS: AMS TECHNIQUE: One view of the chest was acquired. COMPARISON: [facility], CR, XR CHEST 1V, 12/15/2022, 19:02. FINDINGS: Surgical changes and devices: None. Lungs and pleura: Lungs are clear. No pleural effusions or pneumothorax. Mediastinum: Mediastinal contours appear normal. Heart size is normal. Bones and chest wall: No suspicious bony lesions. Overlying soft tissues appear unremarkable. IMPRESSION: No acute cardiopulmonary abnormality is seen. No significant discrepancy with the retail shift leader radiology preliminary report. Dictated by: Clarence Yanez M.D. on 07/09/2023 at 8:21 Approved by: Clarence Yanez M.D. on 07/09/2023 at 8:22
--- NOTE | 2023-07-09 01:41 | ED_ITS ---
HPI - Altered Mental Status General Chief Complaint: Altered Mental Status Stated Complaint: confusion, body jerking, seen by paramedics Time Seen by Provider: 07/09/23 01:24 History of Present Illness HPI narrative: 52-year-old female with history of alcohol use disorder (intermittent, no drinks in 3-4 days per ), depression, anxiety, Yamini's thyroiditis presents by private vehicle from home for altered mental status. History obtained from . Has been states that when he left earlier this morning patient was at her mental baseline. When he returned at approximately 10:00 p.m. the patient was acting abnormally, minimally verbal, with intermittent jerking activities and occasionally smacking her lips. He states that he has had to deal with the patient drinking too much in the past but this is different. Related Data Home Medications Medication Instructions Recorded Confirmed cholecalciferol (vitamin D3) 50 50 mcg PO DAILY 12/26/21 07/09/23 mcg (2,000 unit) capsule hydrochlorothiazide 25 mg tablet 25 mg PO DAILY PRN swelling 12/26/21 07/09/23 naproxen sodium 220 mg capsule 220 mg PO BID PRN Pain, Mild 12/26/21 07/09/23 celecoxib 100 mg capsule (Celebrex) 100 mg PO DAILY PRN Pain (Scale 07/09/23 07/09/23 Score 1-3) dicyclomine 10 mg capsule 10 mg PO 4XD PRN IBS 07/09/23 07/09/23 estradiol 0.5 mg tablet 0.5 mg PO DAILY 07/09/23 07/09/23 fluticasone 250 mcg-salmeterol 50 1 ea inhalation BID 07/09/23 07/09/23 mcg/dose blistr powdr for inhalation hydroxyzine HCl 50 mg tablet 50 mg PO BID PRN Anxiety 07/09/23 07/09/23 levothyroxine 75 mcg tablet 75 mcg PO DAILY 07/09/23 07/09/23 ondansetron HCl 8 mg tablet 8 mg PO DAILY PRN Nausea And 07/09/23 07/09/23 Vomiting propranolol 20 mg tablet 20 mg PO DAILY PRN Anxiety 07/09/23 07/09/23 Previous Rx's Medication Instructions Recorded albuterol sulfate 90 mcg/actuation 2 puff inhalation Q4H PRN 12/30/17 breath activated powder inhaler shortness of breath or wheezing #1 ea baclofen 20 mg tablet 20 mg PO TID PRN Muscle Spasm 7 08/14/21 days #20 tabs progesterone micronized 100 mg 100 mg PO QAM #30 caps 09/07/22 capsule (Prometrium) bupropion HCl 150 mg 24 hr tablet, 300 mg (2 x 150 mg) PO QAM #60 tabs 02/22/23 extended release escitalopram oxalate 20 mg tablet 20 mg PO DAILY #90 tabs 05/13/23 clonazepam 0.5 mg tablet 0.5 mg PO BID PRN Anxiety #60 tabs 07/08/23 Allergies Allergy/AdvReac Type Severity Reaction Status Date / Time No Known Drug Allergies Allergy Verified 09/13/22 13:48 Review of Systems Review of Systems Narrative: Negative except as noted above 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) Hx of sinus surgery (2011) History of removal of laparoscopic gastric banding device (2014) Hx of laparoscopic gastric banding (2011) Family History Grandmother Cancer Mental health problem Mother Age: 75 Mental health disorder Sister Age: 57 Heart disease Hypertension High cholesterol Mental health problem Asthma COPD (chronic obstructive pulmonary disease) Social History household members: spouse and family Smoking Status: Current every day smoker Tobacco: How many years used: 10 second hand exposure: No alcohol intake: current substance use type: does not use Smoking Status: Current every day smoker tobacco type: cigarettes alcohol intake frequency: a few times a week Substance Use Type: does not use Exam Initial Vital Signs Initial Vital Signs: Vital Signs Temperature 97.1 F L 07/09/23 01:30 Pulse Rate 61 07/09/23 01:30 Respiratory Rate 16 07/09/23 01:30 Blood Pressure 114/71 07/09/23 01:30 Pulse Oximetry 100 07/09/23 01:30 Oxygen Delivery Method Room Air 07/09/23 01:30 Const: Awake, appears older than stated age Eyes: PERRL, EOMI, conjunctiva normal Cardiac: regular rate, regular rhythm RESP: unlabored, clear bilaterally, no wheezing GI: Atraumatic, soft, nontender, nondistended, no rebound, no guarding MSK: Atraumatic, full range of motion, pulses equal Skin: Warm, Dry, intact, no rashes Neuro: oriented to self only, blankly staring at staff, minimally verbal Psych: Flat affect, grooming poor Course Orders Ordered: Acetaminophen (Acetaminophen 325 Mg Tablet) 650 mg PO Q6H PRN PRN Reason: Fever/Mild Pain (1-3) Calcium Carbonate (Calcium Carbonate 500 Mg Tab) 1,000 mg PO Q4HR PRN PRN Reason: Dyspepsia Last Admin: 07/09/23 11:51 Dose: 1,000 mg Documented By: QUOC Folic Acid (Folic Acid 1 Mg Tablet) 1 mg PO DAILY [facility] Last Admin: 07/09/23 14:22 Dose: 1 mg Documented By: MALKA Heparin Sodium (Porcine) (Heparin 5,000 Unit/Ml Vial) 5,000 unit SUBCUT BID [facility] Last Admin: 07/09/23 20:29 Dose: 5,000 unit Documented By: AT Dextrose/Sodium Chloride (Dextrose 5%-0.9% Ns) 1,000 mls @ 100 mls/hr IV CONT [facility] Last Admin: 07/09/23 11:45 Dose: 100 mls/hr Documented By: QUOC Levothyroxine Sodium (Levothyroxine 75 Mcg Tablet) 75 mcg PO 0600 [facility] Lorazepam (Lorazepam 1 Mg Tablet) 2 mg PO Q4H [facility]; Protocol Last Admin: 07/09/23 18:34 Dose: Not Given Documented By: Admin: 07/09/23 14:45 Dose: 2 mg Documented By: MALKA Multivitamins (Multivitamin 1 Tablet) 1 tab PO DAILY [facility] Last Admin: 07/09/23 14:22 Dose: 1 tab Documented By: MALKA Naloxone HCl (Naloxone 0.4 Mg/Ml Vial) 0.2 mg IV Q2MIN PRN PRN Reason: Opiate Reversal Nicotine (Nicotine 21 Mg Patch) 21 mg TOP DAILY [facility] Last Admin: 07/09/23 13:23 Dose: 21 mg Documented By: ANCA Ondansetron HCl (Ondansetron 4 Mg Odt) 4 mg SL Q6HR PRN PRN Reason: Nausea Last Admin: 07/09/23 13:23 Dose: 4 mg Documented By: ANCA Thiamine HCl (Thiamine 100 Mg Tablet) 100 mg PO DAILY [facility] Last Admin: 07/09/23 11:51 Dose: 100 mg Documented By: QUOC Discontinued Medications Chlordiazepoxide HCl (Chlordiazepoxide 10 Mg Capsule) 10 mg PO TID [facility] Last Admin: 07/09/23 14:22 Dose: 10 mg Documented By: Admin: 07/09/23 11:51 Dose: 10 mg Documented By: QUOC Folic Acid (Folic Acid 1 Mg Tablet) 1 mg PO NOW ONE Stop: 07/09/23 01:40 Last Admin: 07/09/23 02:31 Dose: 1 mg Documented By: DEBORAH Sodium Chloride (Normal Saline 0.9%) 1,000 mls @ 1,000 mls/hr IV BOLUS ONE Stop: 07/09/23 02:38 Last Infusion: 07/09/23 03:27 Dose: Infused Documented By: Admin: 07/09/23 02:27 Dose: 1,000 mls/hr Documented By: DEBORAH Thiamine HCl 200 mg/ Sodium (Chloride) 102 mls @ 408 mls/hr IV NOW ONE Stop: 07/09/23 01:40 Last Infusion: 07/09/23 02:43 Dose: Infused Documented By: Admin: 07/09/23 02:28 Dose: 408 mls/hr Documented By: DEBORAH Lorazepam (Lorazepam 1 Mg Tablet) 2 mg PO Q8HR [facility]; Protocol Last Admin: 07/09/23 14:56 Dose: Not Given Documented By: MALKA Vital Signs Vital signs: Vital Signs - 8 hr 07/09/23 01:30 07/09/23 02:03 07/09/23 02:30 Temperature 97.1 F L Pulse Rate 61 57 L 57 L Respiratory Rate 16 10 L 14 Blood Pressure 114/71 Pulse Oximetry 100 100 98 Oxygen Delivery Method Room Air Room Air 07/09/23 02:30 07/09/23 02:49 07/09/23 02:49 Temperature Pulse Rate 61 Respiratory Rate 23 Blood Pressure 95/64 134/71 Pulse Oximetry 100 Oxygen Delivery Method Room Air 07/09/23 03:00 07/09/23 03:01 07/09/23 03:01 Temperature Pulse Rate 58 L 57 L Respiratory Rate 23 13 Blood Pressure 123/86 Pulse Oximetry 100 96 Oxygen Delivery Method Room Air Room Air 07/09/23 03:30 07/09/23 03:30 07/09/23 04:00 Temperature Pulse Rate 61 54 L Respiratory Rate 12 12 Blood Pressure 102/67 Pulse Oximetry 98 99 Oxygen Delivery Method Room Air Room Air 07/09/23 05:23 07/09/23 05:24 07/09/23 05:24 Temperature Pulse Rate 98 H 93 H Respiratory Rate 23 Blood Pressure 110/67 Pulse Oximetry 98 99 Oxygen Delivery Method Room Air Room Air 07/09/23 05:30 07/09/23 05:30 Temperature Pulse Rate 62 Respiratory Rate 22 Blood Pressure 92/53 L Pulse Oximetry 98 Oxygen Delivery Method Room Air MDM - Altered Mental Status Differential Diagnosis Differential diagnosis: Likely alcoholic intoxication, altered mental status and delirium Lab Data 07/09/23 01:45 07/09/23 01:45 Labs: Lab Results 07/09/23 07/09/23 07/09/23 Range/Units 01:45 02:20 05:23 WBC 4.6 (4.5-11.0) X10^3/uL RBC 3.86 L (4.0-5.2) X10^6/uL Hgb 10.8 L (12.0-16.0) g/dL Hct 33.2 L (36-46) % MCV 85.9 (80-100) fL MCH 28.0 (26-34) PG MCHC 32.6 (30-36) % RDW 21.1 H (11.6-14.8) % Plt Count 181 (150-400) X10^3/uL Neut % (Auto) 49.7 L (50-75) % Lymph % (Auto) 40.3 H (25-40) % [place] % (Auto) 7.8 (3-14) % Eos % (Auto) 1.6 L (2-4) % Baso % (Auto) 0.6 (0-2) % Neut # (Auto) 2300 (8654-9952) /uL Lymph # (Auto) 1800 (6932-3785) /uL [place] # (Auto) 400 (0-900) /uL Eos # (Auto) 100 (0-450) /uL Baso # (Auto) 0 (0-100) /uL Platelet Estimate Adequate on smear RBC Morphology See below Anisocytosis 2+ H Macrocytosis 2+ H PT 9.9 (9.4-12.5) SECONDS INR 0.9 (0.9-1.3) Sodium 139 (137-145) mmol/L Potassium 3.4 (3.4-5.1) mmol/L Chloride 109 H (98-107) mmol/L Carbon Dioxide 24 (22-32) mmol/L BUN 21 H (7-17) mg/dL Creatinine 0.82 (0.52-1.04) mg/dL Estimated GFR > 60 (>60) mL/min BUN/Creatinine Ratio 25.6 H (6-22) Glucose 85 (70-100) mg/dL Calcium 9.2 (8.4-10.2) mg/dL Total Bilirubin 0.5 (0.2-1.3) mg/dL AST 27 (14-36) IU/L ALT 12 (<35) IU/L Alkaline Phosphatase 92 (38-126) U/L Ammonia < 9 L (9-30) umol/L Total Creatine Kinase 66 (30-135) U/L Troponin I < 0.012 (0.01-0.034) ng/mL Total Protein 6.5 (6.3-8.2) g/dL Albumin 3.6 (3.5-5.0) g/dL Globulin 2.9 (1.7-4.1) g/dL Albumin/Globulin Ratio 1.2 (1.0-2.8) Vitamin B12 679 (239-931) pg/mL TSH 1.85 (0.47-4.68) uIU/mL Urine Color Yellow Urine Appearance Clear Urine pH 6.0 (4.5-8.0) Ur Specific [place] <=1.005 (1.000-1.035) Urine Protein Negative (Negative) Urine Glucose (UA) Negative (Negative) g/dL Urine Ketones Negative (NEGATIVE) Urine Occult Blood Negative (Negative) Urine Nitrate Negative (Negative) Urine Bilirubin Negative (NEGATIVE) Urine Urobilinogen 0.2 (0.2) E.U./dL Ur Leukocyte Esterase Negative (NEGATIVE) Urine RBC None seen (0-5/HPF) Urine WBC None seen (0-5/HPF) Ur Squamous Epith Cells 0-1 /hpf (0-5/HPF) Urine Bacteria None seen (None) Ur Culture Indicated? Cult not indicated Vol Urine Centrifuged 10ml (spun) Salicylates < 1.0 (<20) mg/dL U Opiates 300ng/mL cut Negative (Negative) Ur Oxycodone Screen Negative (Negative) Urine Methadone Screen Negative (Negative) Acetaminophen < 10 (10-30) ug/mL Ur Barbiturates Screen Negative (Negative) U Tricyclic Antidepress Negative (Negative) Ur Phencyclidine Scrn Negative (Negative) Ur Amphetamines Screen Negative (Negative) U Methamphetamines Scrn Negative (Negative) Ur MDMA Scrn (Ecstasy) Negative (Negative) U Benzodiazepines Scrn Negative (Negative) Urine Cocaine Screen Negative (Negative) U Marijuana (THC) Screen Negative (Negative) Urine Specific [place] Ethyl Alcohol < 10 ( - 10) mg/dL Ur Creatinine 07/09/23 Range/Units 05:23 WBC (4.5-11.0) X10^3/uL RBC (4.0-5.2) X10^6/uL Hgb (12.0-16.0) g/dL Hct (36-46) % MCV (80-100) fL MCH (26-34) PG MCHC (30-36) % RDW (11.6-14.8) % Plt Count (150-400) X10^3/uL Neut % (Auto) (50-75) % Lymph % (Auto) (25-40) % [place] % (Auto) (3-14) % Eos % (Auto) (2-4) % Baso % (Auto) (0-2) % Neut # (Auto) (3004-1317) /uL Lymph # (Auto) (3334-1300) /uL [place] # (Auto) (0-900) /uL Eos # (Auto) (0-450) /uL Baso # (Auto) (0-100) /uL Platelet Estimate RBC Morphology Anisocytosis Macrocytosis PT (9.4-12.5) SECONDS INR (0.9-1.3) Sodium (137-145) mmol/L Potassium (3.4-5.1) mmol/L Chloride (98-107) mmol/L Carbon Dioxide (22-32) mmol/L BUN (7-17) mg/dL Creatinine (0.52-1.04) mg/dL Estimated GFR (>60) mL/min BUN/Creatinine Ratio (6-22) Glucose (70-100) mg/dL Calcium (8.4-10.2) mg/dL Total Bilirubin (0.2-1.3) mg/dL AST (14-36) IU/L ALT (<35) IU/L Alkaline Phosphatase (38-126) U/L Ammonia (9-30) umol/L Total Creatine Kinase (30-135) U/L Troponin I (0.01-0.034) ng/mL Total Protein (6.3-8.2) g/dL Albumin (3.5-5.0) g/dL Globulin (1.7-4.1) g/dL Albumin/Globulin Ratio (1.0-2.8) Vitamin B12 (239-931) pg/mL TSH (0.47-4.68) uIU/mL Urine Color Urine Appearance Urine pH TNP (4.5-8.0) Ur Specific [place] (1.000-1.035) Urine Protein (Negative) Urine Glucose (UA) (Negative) g/dL Urine Ketones (NEGATIVE) Urine Occult Blood (Negative) Urine Nitrate (Negative) Urine Bilirubin (NEGATIVE) Urine Urobilinogen (0.2) E.U./dL Ur Leukocyte Esterase (NEGATIVE) Urine RBC (0-5/HPF) Urine WBC (0-5/HPF) Ur Squamous Epith Cells (0-5/HPF) Urine Bacteria (None) Ur Culture Indicated? Vol Urine Centrifuged Salicylates (<20) mg/dL U Opiates 300ng/mL cut (Negative) Ur Oxycodone Screen (Negative) Urine Methadone Screen (Negative) Acetaminophen (10-30) ug/mL Ur Barbiturates Screen (Negative) U Tricyclic Antidepress (Negative) Ur Phencyclidine Scrn (Negative) Ur Amphetamines Screen (Negative) U Methamphetamines Scrn (Negative) Ur MDMA Scrn (Ecstasy) (Negative) U Benzodiazepines Scrn (Negative) Urine Cocaine Screen (Negative) U Marijuana (THC) Screen (Negative) Urine Specific [place] TNP Ethyl Alcohol ( - 10) mg/dL Ur Creatinine TNP [facility] Narrative Medical decision making narrative: Acute altered mental status, unknown onset, however noted to be relatively normal earlier in the morning before left. She blankly stares and occasionally twitches. Not able to meaningfully contribute to ROS or participate in physical exam. Given history of alcohol use we will give thiamine and folic acid. Laboratory work is reviewed, no acute abnormalities identified. Alcohol undetectable, negative for Tylenol, salicylates. Patient reassessed, she was still acting very abnormally. I asked her if she had taken any extra of her medications, she states ?no?. She takes numerous psychiatric medications including clonazepam, bupropion, baclofen, however patient's presentation is not compatible with overdoses of these medications. Pending urinalysis. Urinalysis negative for infection, negative drug screen. Patient is still altered, not at baseline per . We will admit for further treatment. Discharge Plan Departure Patient Disposition: Admitted as Observation Clinical Impression: Acute metabolic encephalopathy Admit Date/Time: 07/09/23 07:14 Admit Provider: Pino Santiago
[2023-07-09 02:06] LABS: Add Manual Diff / Slide Review NO; Basophils Absolute Auto 0 /uL (0-100); Basophils Percent Auto 0.6 % (0-2); Eosinophils Absolute Auto 100 /uL (0-450); Eosinophils Percent Auto 1.6 % (2-4); Hematocrit 33.2 % (36-46); Hemoglobin 10.8 g/dL (12.0-16.0); Lymphocytes Absolute Auto 1800 /uL (1100-4500); Lymphocytes Percent Auto 40.3 % (25-40); Mean Corpuscular HGB Conc 32.6 % (30-36); Mean Corpuscular Volume 85.9 fL (80-100); Monocytes Absolute Auto 400 /uL (0-900); Monocytes Percent Auto 7.8 % (3-14); Neutrophils Absolute Auto 2300 /uL (1500-7000); Neutrophils Percent Auto 49.7 % (50-75); Platelet Count 181 X10^3/uL (150-400); Red Blood Cell Count 3.86 X10^6/uL (4.0-5.2); Red Cell Distribution Width 21.1 % (11.6-14.8); White Blood Cell Count 4.6 X10^3/uL (4.5-11.0)
[2023-07-09 02:07] LABS: INR 0.9 (0.9-1.3); Prothrombin Time 9.9 SECONDS (9.4-12.5)
[2023-07-09 02:12] LABS: Acetaminophen < 10 ug/mL (10-30); Alanine Aminotransferase 12 IU/L (<35); Albumin 3.6 g/dL (3.5-5.0); Albumin Globulin Ratio 1.2 (1.0-2.8); Alkaline Phosphatase 92 U/L (38-126); Aspartate Aminotransferase 27 IU/L (14-36); BUN Creatinine Ratio 25.6 (6-22); Bilirubin Total 0.5 mg/dL (0.2-1.3); Blood Urea Nitrogen 21 mg/dL (7-17); Calcium 9.2 mg/dL (8.4-10.2); Carbon Dioxide 24 mmol/L (22-32); Chloride 109 mmol/L (98-107); Creatine Kinase 66 U/L (30-135); Estimated Glomerular Filt Rate > 60 mL/min (>60); Ethanol (ETOH) < 10 mg/dL; Globulin 2.9 g/dL (1.7-4.1); Glucose 85 mg/dL (70-100); HEMOLYSIS 23 (0-50); Potassium 3.4 mmol/L (3.4-5.1); Salicylate < 1.0 mg/dL (<20); Sodium 139 mmol/L (137-145); Total Protein 6.5 g/dL (6.3-8.2)
[2023-07-09 02:22] LABS: Troponin I < 0.012 ng/mL (0.01-0.034)
[2023-07-09 02:27] LABS: Platelet Estimate Adequate on smear
[2023-07-09] MEDS: SODIUM CHLORIDE 0.9% 1,000 ML 1000 ML IV (02:27)
[2023-07-09 02:28] LABS: Anisocytosis 2+; Macrocytosis 2+
[2023-07-09] MEDS: THIAMINE 200 MG in SODIUM CHLORIDE 0.9% 100 ML 408 MG IV (02:28)
[2023-07-09] MEDS: FOLIC ACID 1 MG TABLET PO ×2 (02:31→14:22)
[2023-07-09 02:38] LABS: Ammonia (NH3) < 9 umol/L (9-30)
[2023-07-09 02:52] LABS: Thyroid Stimulating Hormone 1.85 uIU/mL (0.47-4.68)
[2023-07-09 05:33] LABS: Appearance Urine UA CLEAR; Bilirubin Urine UA NEGATIVE (NEGATIVE); Color Urine UA YELLOW; Glucose Urine UA NEGATIVE (Negative); Ketones Urine UA NEGATIVE (NEGATIVE); Leukocyte Esterase Urine UA NEGATIVE (NEGATIVE); Nitrite Urine UA NEGATIVE (Negative); Occult Blood Urine UA NEGATIVE (Negative); Protein Urine UA NEGATIVE (Negative); Specific Gravity Urine UA <=1.005 (1.000-1.035); Urobilinogen Urine UA 0.2 E.U./dL (0.2)
[2023-07-09 05:39] LABS: UR Morphine/Opiate cutoff 300 Negative (Negative); Urine Amphetamines Negative (Negative); Urine Barbiturates Negative (Negative); Urine Benzodiazepines Negative (Negative); Urine Cocaine Negative (Negative); Urine MDMA Negative (Negative); Urine Methadone Negative (Negative); Urine Methamphetamines Negative (Negative); Urine Oxycodone Negative (Negative); Urine Phencyclidine Negative (Negative); Urine Tetrahydrocannabinol Negative (Negative); Urine Tricyclic Antidepressant Negative (Negative)
[2023-07-09 05:40] LABS: Bacteria Urine None Seen; Culture Indicated Urine Cult Not Indicated; RBC Urine None Seen (0-5/HPF); Squamous Epithelial Cell Urine 0-1 /HPF (0-5/HPF); Urine Volume 10mL (spun); WBC Urine None Seen (0-5/HPF)
--- NOTE | 2023-07-09 07:10 | DI.MRI.S_ITS ---
PROCEDURE: MR HEAD/BRAIN WO CON INDICATIONS: ENCEPHALOPATHY TECHNIQUE: Noncontrast axial T1 spin echo, axial T2 fast spin echo, sagittal and axial FLAIR, coronal T2 fast spin echo, axial gradient echo, axial diffusion and ADC through the brain. COMPARISON: [facility], CT, CT HEAD/BRAIN WO CON, 07/09/2023, 2:34. FINDINGS: Image quality: Excellent. CSF Spaces: Basal cisterns are patent. No extra-axial fluid collections. Ventricles are normal in size and shape. Brain: No intracranial masses or hemorrhage. Deshpande/white matter interface is normal. Brainstem appears normal. Diffusion-weighted images demonstrate no acute infarct. No chronic ischemic insults. Normal intravascular flow voids are present. Skull and face: Calvarium has normal marrow signal. Orbits appear normal. Sinuses: There is an air-fluid level in the left maxillary sinus. Mild mucosal thickening in ethmoidal sinuses bilaterally. The mastoids are clear. IMPRESSION: 1. No acute intracranial abnormalities. In this patient with suspected encephalopathy, contrast enhanced exam would be helpful. 2. Paranasal sinus disease with left maxillary sinus air-fluid level and mild bilateral ethmoidal sinus mucosal thickening. Dictated by: Clarence Yanez M.D. on 07/09/2023 at 8:17 Approved by: Clarence Yanez M.D. on 07/09/2023 at 8:21
--- NOTE | 2023-07-09 10:36 | PM.HP.1 ---
History of Present Illness History of Present Illness Date Patient Seen: 07/09/23 Time Patient Seen: 08:00 Chief complaint: confusion, body jerking, seen by paramedics Narrative: The patient is a 52-year-old female with a long history of alcohol use disorder. The patient also has history of depression, anxiety and Yamini's thyroiditis. She has had intermittent shaking for the last 2 weeks which has increased over the last several days. She has also had new altered mental status. Her found her not making sense this morning and possibly hallucinating. He brought her to the emergency department where she had a negative brain MRI. The patient has an unknown last alcohol intake. Her BAL was negative this morning. The patient is confused and able to answer some questions but not other questions. She has not oriented to year or place but does note that she is in [place]. He notes that he was out throughout the day yesterday and did not see her. He has not sure when she last drank. She does not use illicit drugs but does also take chronic clonazepam and has for years. He is unsure if she took more or less recently. He is also unsure of the dose and frequency of her scheduled clonazepam. He has not heard of any recent injuries and she had not complained to being ill prior to yesterday. She has had similar episodes with transient alteration in the past. The patient is not able to really comply or participate in a review of systems. [facility] Medical History Neuropathy Chronic venous insufficiency Obstructive sleep apnea (Unknown) GERD (gastroesophageal reflux disease) (Unknown) Allergy (Unknown) Restless leg syndrome (2014) Anxiety (1989) Shoulder pain (Unknown) Foot pain (2003) Chronic back pain (Unknown) Vertigo (1979) Painful menstrual periods (Unknown) Heavy menses (Unknown) IBS (irritable bowel syndrome) (1985) Surgical History 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) Hx of sinus surgery (2011) History of removal of laparoscopic gastric banding device (2014) Hx of laparoscopic gastric banding (2011) Family History Grandmother Cancer Mental health problem Mother Age: 75 Mental health disorder Sister Age: 57 Heart disease Hypertension High cholesterol Mental health problem Asthma COPD (chronic obstructive pulmonary disease) Social History household members: spouse and family Smoking Status: Current every day smoker Tobacco: How many years used: 10 second hand exposure: No alcohol intake: current substance use type: does not use Meds Home Medications and Allergies Home Medications Medication Instructions Recorded Confirmed Type albuterol sulfate 90 mcg/actuation 2 puff inhalation Q4H PRN 12/30/17 07/09/23 Rx breath activated powder inhaler shortness of breath or wheezing #1 ea baclofen 20 mg tablet 20 mg PO TID PRN Muscle Spasm 7 08/14/21 07/09/23 Rx days #20 tabs cholecalciferol (vitamin D3) 50 50 mcg PO DAILY 12/26/21 07/09/23 History mcg (2,000 unit) capsule hydrochlorothiazide 25 mg tablet 25 mg PO DAILY PRN swelling 12/26/21 07/09/23 History naproxen sodium 220 mg capsule 220 mg PO BID PRN Pain, Mild 12/26/21 07/09/23 History progesterone micronized 100 mg 100 mg PO QAM #30 caps 09/07/22 07/09/23 Rx capsule (Prometrium) bupropion HCl 150 mg 24 hr tablet, 300 mg (2 x 150 mg) PO QAM #60 tabs 02/22/23 07/09/23 Rx extended release escitalopram oxalate 20 mg tablet 20 mg PO DAILY #90 tabs 05/13/23 07/09/23 Rx clonazepam 0.5 mg tablet 0.5 mg PO BID PRN Anxiety #60 tabs 07/08/23 07/09/23 Rx celecoxib 100 mg capsule (Celebrex) 100 mg PO DAILY PRN Pain (Scale 07/09/23 07/09/23 History Score 1-3) dicyclomine 10 mg capsule 10 mg PO 4XD PRN IBS 07/09/23 07/09/23 History estradiol 0.5 mg tablet 0.5 mg PO DAILY 07/09/23 07/09/23 History fluticasone 250 mcg-salmeterol 50 1 ea inhalation BID 07/09/23 07/09/23 History mcg/dose blistr powdr for inhalation hydroxyzine HCl 50 mg tablet 50 mg PO BID PRN Anxiety 07/09/23 07/09/23 History levothyroxine 75 mcg tablet 75 mcg PO DAILY 07/09/23 07/09/23 History ondansetron HCl 8 mg tablet 8 mg PO DAILY PRN Nausea And 07/09/23 07/09/23 History Vomiting propranolol 20 mg tablet 20 mg PO DAILY PRN Anxiety 07/09/23 07/09/23 History Allergies Allergy/AdvReac Type Severity Reaction Status Date / Time No Known Drug Allergies Allergy Verified 09/13/22 13:48 Review of Systems Review of Systems Narrative: Not able to obtain due to mental status. Exam Vital Signs (past 8 hours): - 07/09/23 02:49 07/09/23 02:49 07/09/23 03:00 Temperature Pulse Rate 61 58 L Respiratory Rate 23 23 Blood Pressure 134/71 Pulse Oximetry 100 100 Oxygen Delivery Method Room Air Room Air 07/09/23 03:01 07/09/23 03:01 07/09/23 03:30 Temperature Pulse Rate 57 L 61 Respiratory Rate 13 12 Blood Pressure 123/86 Pulse Oximetry 96 98 Oxygen Delivery Method Room Air Room Air 07/09/23 03:30 07/09/23 04:00 07/09/23 05:23 Temperature Pulse Rate 54 L 98 H Respiratory Rate 12 Blood Pressure 102/67 Pulse Oximetry 99 98 Oxygen Delivery Method Room Air Room Air 07/09/23 05:24 07/09/23 05:24 07/09/23 05:30 Temperature Pulse Rate 93 H 62 Respiratory Rate 23 22 Blood Pressure 110/67 Pulse Oximetry 99 98 Oxygen Delivery Method Room Air Room Air 07/09/23 05:30 07/09/23 07:00 07/09/23 07:00 Temperature Pulse Rate 54 L Respiratory Rate 14 Blood Pressure 92/53 L 97/63 Pulse Oximetry 95 Oxygen Delivery Method Room Air 07/09/23 08:04 Temperature 97.6 F Pulse Rate 67 Respiratory Rate 20 Blood Pressure 120/82 Pulse Oximetry 95 Oxygen Delivery Method Room Air Oxygen Delivery Method Room Air Narrative Exam Narrative: No acute distress, normal speech. She is some nonsensical statements is not oriented exact place or year. Atraumatic skull. Anicteric sclera, EOMI. Speech sounds relatively normal. Oropharynx is notable for normal mucosa. No facial droop. Neck is supple, no palpable thyroid. No adenopathy. Lungs are clear, normal rate and effort. Heart is regular, no murmur gallop or rub. Abdomen is soft, nontender. Extremities are free of edema, she can move all extremities without difficulty. Her cranial nerves are grossly intact. Skin is free of rash or lesions. Joints are not swollen or deformed. Objective Imaging MRI - head: Radiologist's impression: IMPRESSION: 1. No acute intracranial abnormalities. In this patient with suspected encephalopathy, contrast enhanced exam would be helpful. 2. Paranasal sinus disease with left maxillary sinus air-fluid level and mild bilateral ethmoidal sinus mucosal thickening. Chest x-ray: Radiologist's impression: IMPRESSION: No acute cardiopulmonary abnormality is seen. No significant discrepancy with the fish technologist radiology preliminary report. CT scan - head: Radiologist's impression: IMPRESSION: No acute intracranial pathology. Labs 07/09/23 01:45 07/09/23 01:45 Labs: Laboratory Results - last 24 hr 07/09/23 07/09/23 07/09/23 01:45 02:20 05:23 WBC 4.6 RBC 3.86 L Hgb 10.8 L Hct 33.2 L MCV 85.9 MCH 28.0 MCHC 32.6 RDW 21.1 H Plt Count 181 Neut % (Auto) 49.7 L Lymph % (Auto) 40.3 H [place] % (Auto) 7.8 Eos % (Auto) 1.6 L Baso % (Auto) 0.6 Neut # (Auto) 2300 Lymph # (Auto) 1800 [place] # (Auto) 400 Eos # (Auto) 100 Baso # (Auto) 0 Platelet Estimate Adequate on smear RBC Morphology See below Anisocytosis 2+ H Macrocytosis 2+ H PT 9.9 INR 0.9 Sodium 139 Potassium 3.4 Chloride 109 H Carbon Dioxide 24 BUN 21 H Creatinine 0.82 Estimated GFR > 60 BUN/Creatinine Ratio 25.6 H Glucose 85 Calcium 9.2 Total Bilirubin 0.5 AST 27 ALT 12 Alkaline Phosphatase 92 Ammonia < 9 L Total Creatine Kinase 66 Troponin I < 0.012 Total Protein 6.5 Albumin 3.6 Globulin 2.9 Albumin/Globulin Ratio 1.2 TSH 1.85 Urine Color Yellow Urine Appearance Clear Urine pH 6.0 Ur Specific [place] <=1.005 Urine Protein Negative Urine Glucose (UA) Negative Urine Ketones Negative Urine Occult Blood Negative Urine Nitrate Negative Urine Bilirubin Negative Urine Urobilinogen 0.2 Ur Leukocyte Esterase Negative Urine RBC None seen Urine WBC None seen Ur Squamous Epith Cells 0-1 /hpf Urine Bacteria None seen Ur Culture Indicated? Cult not indicated Vol Urine Centrifuged 10ml (spun) Salicylates < 1.0 U Opiates 300ng/mL cut Negative Ur Oxycodone Screen Negative Urine Methadone Screen Negative Acetaminophen < 10 Ur Barbiturates Screen Negative U Tricyclic Antidepress Negative Ur Phencyclidine Scrn Negative Ur Amphetamines Screen Negative U Methamphetamines Scrn Negative Ur MDMA Scrn (Ecstasy) Negative U Benzodiazepines Scrn Negative Urine Cocaine Screen Negative U Marijuana (THC) Screen Negative Urine Specific [place] Ethyl Alcohol < 10 Ur Creatinine 07/09/23 05:23 WBC RBC Hgb Hct MCV MCH MCHC RDW Plt Count Neut % (Auto) Lymph % (Auto) [place] % (Auto) Eos % (Auto) Baso % (Auto) Neut # (Auto) Lymph # (Auto) [place] # (Auto) Eos # (Auto) Baso # (Auto) Platelet Estimate RBC Morphology Anisocytosis Macrocytosis PT INR Sodium Potassium Chloride Carbon Dioxide BUN Creatinine Estimated GFR BUN/Creatinine Ratio Glucose Calcium Total Bilirubin AST ALT Alkaline Phosphatase Ammonia Total Creatine Kinase Troponin I Total Protein Albumin Globulin Albumin/Globulin Ratio TSH Urine Color Urine Appearance Urine pH TNP Ur Specific [place] Urine Protein Urine Glucose (UA) Urine Ketones Urine Occult Blood Urine Nitrate Urine Bilirubin Urine Urobilinogen Ur Leukocyte Esterase Urine RBC Urine WBC Ur Squamous Epith Cells Urine Bacteria Ur Culture Indicated? Vol Urine Centrifuged Salicylates U Opiates 300ng/mL cut Ur Oxycodone Screen Urine Methadone Screen Acetaminophen Ur Barbiturates Screen U Tricyclic Antidepress Ur Phencyclidine Scrn Ur Amphetamines Screen U Methamphetamines Scrn Ur MDMA Scrn (Ecstasy) U Benzodiazepines Scrn Urine Cocaine Screen U Marijuana (THC) Screen Urine Specific [place] TNP Ethyl Alcohol Ur Creatinine TNP Assessment & Plan Assessment & Plan narrative: 1. Metabolic encephalopathy, present on admission and active. -this appears to likely relate to chronic alcohol use and/or withdrawal. 2. Probable early alcohol withdrawal, present on admission and active. 3. Severe alcohol use disorder, present on admission and active. 4. Nicotine dependence smoking 2 packs of cigarettes a day, present on admission and active. 5. Hypokalemia, present on admission and active. 6. Depression and anxiety, present on admission active. 7. GERD, present on admission and active. 8. Yamini's thyroiditis, present on admission and active. Plan: CIWA protocol, IV fluids, thiamine, and multivitamins. In addition we will monitor her mental status over the next 24 hours. There is no evidence of acute infection. We will check TSH to rule out hypo or hyperthyroidism. We will also place a 21 mg Nicoderm patch. She is full resuscitation. Her proxy is her . Estimated length of stay is at least 2 midnights, inpatient status. Time Spent With Patient Time with patient: 30 to 49 minutes with 50% spent counseling/coordinating care Quality MIPS - Admit I confirm the patient?s Advance Care Plan is present, Code status is documented, Surrogate decision maker is in patient?s record [If Yes, STOP here]: Yes [facility] - Meds 'Current medications' to include all prescriptions, [id number] products, herbals, cannabis/cannabidiol products, and vitamin/mineral/dietary (nutritional) supplements. I have utilized all available resources to obtain, update, or review the patient?s current medications. [If Yes, STOP here]: Yes
[2023-07-09] MEDS: DEXTROSE 5%-0.9% NS 1,000 ML 100 ML IV (11:45)
[2023-07-09] MEDS: THIAMINE 100 MG TABLET PO (11:51)
[2023-07-09] MEDS: chlordiazePOXIDE 10 MG CAPSULE PO ×2 (11:51→14:22)
[2023-07-09] MEDS: CALCIUM CARBONATE 500 MG TAB 1000 MG PO (11:51)
[2023-07-09] MEDS: NICOTINE 21 MG PATCH TOP (13:23)
[2023-07-09] MEDS: ONDANSETRON 4 MG ODT SL (13:23)
[2023-07-09] MEDS: MULTIVITAMIN 1 TABLET 1 TAB PO (14:22)
[2023-07-09] MEDS: LORazepam 1 MG TABLET 2 MG PO ×2 (14:45→23:06)
--- NOTE | 2023-07-09 15:44 | OT.IPNOTE ---
Pt CIWA 13, hold OT eval and check on the pt tomorrow.
--- NOTE | 2023-07-09 15:57 | PT-IP ANOTE ---
PT eval received and EMR reviewed. pt with CIWA score of 13. checked with nurse and agreed to hold PT today. will f/u.
--- NOTE | 2023-07-09 17:35 | PC.NURSE ---
0835 Pt to room 209 and transferred into bed. Pt is awake but oriented only to herself. Bed alarm is on for safety. Spouse at the bedside. Pt denies pain, nausea, or shortness of breath. Pt able to add 8 + 4 but unable to state day, date, year, birthday, age, month, or place or why she was here. Pt has visible tremors and jerky movements, denies headache. IVF infusing as ordered. Bed alarm on for safety. Pt oriented to room, call light, bed controls, and tv controls. Pt agrees to call for assistance as needed.
[2023-07-09 18:31] LABS: Vitamin B12 679 pg/mL (239-931)
[2023-07-09] MEDS: HEPARIN 5,000 UNIT/ML VIAL 5000 UNIT SUBCUT (20:29)
[2023-07-10] VITALS: BP 126/87; PULSE 75; RESP 18; TEMP 36.3; O2SAT 100
[2023-07-10 02:00] VITALS: BP 134/91; PULSE 70; RESP 18; TEMP 36; O2SAT 100
[2023-07-10] MEDS: LORazepam 1 MG TABLET 2 MG PO (04:39)
[2023-07-10 05:24] VITALS: PULSE 70; RESP 18
[2023-07-10] MEDS: DEXTROSE 5%-0.9% NS 1,000 ML 100 ML IV (06:00)
[2023-07-10] MEDS: LEVOTHYROXINE 75 MCG TABLET PO (06:00)
[2023-07-10 06:16] LABS: Add Manual Diff / Slide Review NO; Basophils Absolute Auto 0 /uL (0-100); Basophils Percent Auto 0.8 % (0-2); Eosinophils Absolute Auto 0 /uL (0-450); Eosinophils Percent Auto 0.9 % (2-4); Hematocrit 30.3 % (36-46); Hemoglobin 9.8 g/dL (12.0-16.0); Lymphocytes Absolute Auto 2000 /uL (1100-4500); Lymphocytes Percent Auto 36.3 % (25-40); Mean Corpuscular HGB Conc 32.5 % (30-36); Mean Corpuscular Hemoglobin 27.7 PG (26-34); Mean Corpuscular Volume 85.3 fL (80-100); Monocytes Absolute Auto 400 /uL (0-900); Monocytes Percent Auto 7.7 % (3-14); Neutrophils Absolute Auto 3000 /uL (1500-7000); Neutrophils Percent Auto 54.3 % (50-75); Platelet Count 180 X10^3/uL (150-400); Red Blood Cell Count 3.55 X10^6/uL (4.0-5.2); Red Cell Distribution Width 21.3 % (11.6-14.8); White Blood Cell Count 5.5 X10^3/uL (4.5-11.0)
[2023-07-10 06:26] LABS: BUN Creatinine Ratio 30.8 (6-22); Blood Urea Nitrogen 20 mg/dL (7-17); Calcium 8.5 mg/dL (8.4-10.2); Carbon Dioxide 22 mmol/L (22-32); Chloride 110 mmol/L (98-107); Estimated Glomerular Filt Rate > 60 mL/min (>60); Glucose 74 mg/dL (70-100); HEMOLYSIS < 15 (0-50); Potassium 2.9 mmol/L (3.4-5.1); Sodium 139 mmol/L (137-145)
[2023-07-10 06:30] LABS: Anisocytosis 2+; Macrocytosis 2+; Platelet Estimate Adequate on smear
[2023-07-10] MEDS: POTASSIUM CHLORIDE 20 MEQ TAB 40 MEQ PO ×2 (06:55→13:06)
--- NOTE | 2023-07-10 07:24 | P.PN_ITS ---
Subjective Subjective Interval history: Feeling better today. No nausea. Much more mentally clear. She is oriented x3. She has had a fine motor tremor for the last several months. She is stopped multiple medications to see if these might be contributing and including gabapentin and decreasing baclofen. No hallucinations, low CIWA scores today. Exam Vital Signs (past 8 hours): - 07/09/23 23:51 07/10/23 00:00 07/10/23 02:00 Temperature 97.4 F L 96.8 F L Pulse Rate 75 75 70 Respiratory Rate 18 18 18 Blood Pressure 126/87 126/87 134/91 H Pulse Oximetry 100 100 Oxygen Flow Rate 0 0 07/10/23 05:24 Temperature Pulse Rate 70 Respiratory Rate 18 Blood Pressure Pulse Oximetry Oxygen Flow Rate Oxygen Delivery Method Room Air Oxygen Flow Rate 0 Narrative Exam Narrative: Alert and oriented x3, no distress. Fluent speech, normal affect. Lungs are clear, normal rate and effort. Heart is regular, no murmur. Abdomen is soft, non-tender. Legs are free of edema. Objective Labs 07/10/23 05:13 07/10/23 05:13 Labs: Laboratory Results - last 24 hr 07/09/23 07/10/23 01:45 05:13 WBC 5.5 RBC 3.55 L Hgb 9.8 L Hct 30.3 L MCV 85.3 MCH 27.7 MCHC 32.5 RDW 21.3 H Plt Count 180 Neut % (Auto) 54.3 Lymph % (Auto) 36.3 [place] % (Auto) 7.7 Eos % (Auto) 0.9 L Baso % (Auto) 0.8 Neut # (Auto) 3000 Lymph # (Auto) 2000 [place] # (Auto) 400 Eos # (Auto) 0 Baso # (Auto) 0 Platelet Estimate Adequate on smear RBC Morphology See below Anisocytosis 2+ H Macrocytosis 2+ H Sodium 139 Potassium 2.9 L Chloride 110 H Carbon Dioxide 22 BUN 20 H Creatinine 0.65 Estimated GFR > 60 BUN/Creatinine Ratio 30.8 H Glucose 74 Calcium 8.5 Vitamin B12 679 [facility] Medical History Neuropathy Chronic venous insufficiency Obstructive sleep apnea (Unknown) GERD (gastroesophageal reflux disease) (Unknown) Allergy (Unknown) Restless leg syndrome (2014) Anxiety (1989) Shoulder pain (Unknown) Foot pain (2003) Chronic back pain (Unknown) Vertigo (1979) Painful menstrual periods (Unknown) Heavy menses (Unknown) IBS (irritable bowel syndrome) (1985) Surgical History 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) Hx of sinus surgery (2011) History of removal of laparoscopic gastric banding device (2014) Hx of laparoscopic gastric banding (2011) Family History Grandmother Cancer Mental health problem Mother Age: 75 Mental health disorder Sister Age: 57 Heart disease Hypertension High cholesterol Mental health problem Asthma COPD (chronic obstructive pulmonary disease) Social History household members: spouse and family Smoking Status: Current every day smoker Tobacco: How many years used: 10 second hand exposure: No alcohol intake: current substance use type: does not use Assessment & Plan Assessment & Plan narrative: 1. Metabolic encephalopathy, present on admission and improved.. -this appears to likely related to chronic alcohol use and/or withdrawal. 2. Probable early alcohol withdrawal, present on admission and improved. 3. Severe alcohol use disorder, present on admission and active. 4. Nicotine dependence smoking 2 packs of cigarettes a day, present on admission and active. 5. Hypokalemia, present on admission and active. 6. Depression and anxiety, present on admission active. 7. GERD, present on admission and active. 8. Yamini's thyroiditis, present on admission and active. 9. Fine tremor of both hands, chronic. Plan: -continue hydration -out of bed -monitor ability to eat. -restart Lexapro per her request. -Librium 5 t.i.d. for today and. CIWA. -check TSH Probable discharge on July 11. She is interested in attending AA meetings and pursuing her sobriety. She is full resuscitation. Her proxy is her . Time Spent With Patient Time with patient: 30 to 49 minutes with 50% spent counseling/coordinating care
[2023-07-10 08:00] VITALS: BP 140/93; PULSE 71; RESP 16; TEMP 36.2; O2SAT 94
[2023-07-10] MEDS: HEPARIN 5,000 UNIT/ML VIAL 5000 UNIT SUBCUT (09:19)
[2023-07-10] MEDS: NICOTINE 21 MG PATCH TOP (09:20)
[2023-07-10] MEDS: THIAMINE 100 MG TABLET PO (09:20)
[2023-07-10] MEDS: FOLIC ACID 1 MG TABLET PO (09:20)
[2023-07-10] MEDS: MULTIVITAMIN 1 TABLET 1 TAB PO (09:20)
--- NOTE | 2023-07-10 11:15 | PT.IIE ---
Surgical History (Last Reviewed 07/09/23 @ 15:23 by Pino Santiago MD) History of removal of laparoscopic gastric banding device (2014) Hx of laparoscopic gastric banding (2011) Hx of sinus surgery (2011) 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) Medical History (Last Reviewed 07/09/23 @ 15:23 by Pino Santiago MD) Allergy (Unknown) Anxiety (1989) Chronic back pain (Unknown) Chronic venous insufficiency Foot pain (2003) GERD (gastroesophageal reflux disease) (Unknown) Heavy menses (Unknown) IBS (irritable bowel syndrome) (1985) Neuropathy Obstructive sleep apnea (Unknown) Painful menstrual periods (Unknown) Restless leg syndrome (2014) Shoulder pain (Unknown) Vertigo (1979) Physical Therapy Inpatient Evaluation/Re-Eval M1 PT/OT-IP Prior Functional Status Start: 07/10/23 12:43 Freq: NEEDED Status: Active Protocol: Document 07/10/23 11:15 AB (Rec: 07/10/23 12:55 AB [id number]) Medical Review Prior Functional Status Medical History Reviewed Yes Communication able to make needs known Mobility and Gait pt stated that she was modified independen with all mobilities and ambulation without AD but occasionally uses a quad cane Social History Household Members spouse,family Living Arrangements House Number of Floors (Floors) One Floor Number of Stairs To Enter/Railing? 5 steps L rail ascending Home Environment Standard Height Toilet,Tub/ Shower Home Equipment Quad Cane,Tub Transfer Bench, Hand Held Shower Additional Social History Comment pt stated that her spouse will be able to assist her M2 PT-IP Current Condition Start: 07/10/23 12:43 Freq: NEEDED Status: Active Protocol: Document 07/10/23 11:15 AB (Rec: 07/10/23 12:55 AB [id number]) Physical Therapy Current Condition Current Condition Evaluation Date 07/10/23 Treatment Diagnosis metabolic encephalopathy; alcohol withdrawal; difficulty in walking Onset Date 07/09/23 M3 PT-IP Subjective Start: 07/10/23 12:43 Freq: NEEDED Status: Active Protocol: Document 07/10/23 11:15 AB (Rec: 07/10/23 12:55 AB [id number]) Subjective Physical Therapy Visit Type Type Initial Evaluation Visit Start Time 11:15 Visit Stop Time 11:45 Number of FINANCIAL MANAGEMENT CONSULTANT Visits 0 Physical Therapy Visit Comments Patient Comments agreeable to do PT M4 PT-IP Mobility and Gait Start: 07/10/23 12:43 Freq: NEEDED Status: Active Protocol: Document 07/10/23 11:15 AB (Rec: 07/10/23 12:55 AB [id number]) PT-Bed Mobility Assessment Supine to Sit Supine to Sit Independent PT-Transfer Assessment Sit to and From Stand Sit to and from Stand Standby Assistance,Use of Upper Extremities Equipment Transfer Assistive Device None,Gait Belt Orthotic/Prosthetic Devices or Brace: No Transfers Transfer Destination Chair Transfer Technique ambulated Transfer Ability Level of Assist Standby Assistance Comments Mobility Comments pt supine in bed and agreeable to do PT. pt completed supine to sit independent and wanted to put her sweat shirt on. ambulated towards the window SBa without AD and able to do UB dressing by herself. pt ambulated in room without AD sBA. presents with waddling gait with increase LLE ER noted. pt agreed to ambulate in the hallway and do stairs. ambulated towards the stairs without AD SBA. pt with unsteady gait but without LOB. mild tremors but not hindering movement. completed up/down steps using L rail SBA. pt ambulated back to the the room without AD SBA. pt wanted to sit up on the chair. positioned pt on the chair. call light and table placed within reach. informed pt that no further PT needed at this time and pt agreed. informed nurse. Gait Assessment Gait Gait Assistance Required: Standby Assistance Distance (Feet) 200 Able to Maintain Weight Bearing Status Yes During Gait Assistive Devices Assistive Device None,Gait Belt Orthotic/Prosthetic Devices or Brace: No Gait Deviations General Gait Pattern Ataxic,Step-to Gait Factors Limiting Gait Function Factors Limiting Gait Function Decreased Activity Tolerance, Decreased Strength,Limited Range of Motion,Poor Balance, Poor Safety Awareness Stair Climbing Assessment Evaluation Level of Assist On Stairs Standby Assistance Devices Stair Climbing Assistive Devices Left Railing Technique/Endurance Stair Climbing Technique Step to Step Number of Steps Climbed 3 Query Text: Stair Climbing Set # Repetitions (reps) 2 PT-Balance Assessment Sitting Balance and Reactions Static Sitting Balance Ability Normal Dynamic Sitting Balance Ability Good Standing Balance and Reactions Static Standing Balance Ability Good Dynamic Standing Balance Ability Good Device Used without AD M5 PT-IP Objective Assessments Start: 07/10/23 12:43 Freq: NEEDED Status: Active Protocol: Document 07/10/23 11:15 AB (Rec: 07/10/23 12:55 AB [id number]) Orientation Orientation/Cognition Level of Alertness Alert Orientation Name,Place,Situation Language Function Ability No Deficits Noted Safety Awareness Decreased Safety Awareness Memory Description No Deficits Noted Gross Range of Motion Lower Extremity ROM Assessment Within Functional Limits Strength Lower Extremity Strength Assessment Within Functional Limits Sensation Assessment Sensation Gross Sensation WNL Muscle Tone Muscle Tone WNL Yes M6 PT-IP Treatment Start: 07/10/23 12:43 Freq: NEEDED Status: Active Protocol: Document 07/10/23 11:15 AB (Rec: 07/10/23 12:55 AB [id number]) Physical Therapy Treatment Education Education Provided Safety M7 PT-IP Assessment and Plan Start: 07/10/23 12:43 Freq: NEEDED Status: Active Protocol: Document 07/10/23 11:15 AB (Rec: 07/10/23 12:55 AB [id number]) PT Summary Assessment and Plan Potential Rehabilitation Potential Good Status of Condition at Evaluation Stable Summary Impairments Strength,Balance,Cognition, Transfers,Gait,Activity Tolerance Assessment Summary pt is a 52 y/o F who presented in the ER with confusion and jerky movements. pt with h/o chronic alcohol use. pt admitted for metabolic encephalopathy and alcohol withdrawal. pt is independent with bed mobility and only requiring SBA for transfers and ambulation without AD for safety. no further PT needs at this time. pt to ambulate with nursing staff when able. pt has her spouse to assist her at home. Frequency of Treatment Frequency Of Treatment Discharge Recommendations To Nursing Amount of Assist Needed Standby Assistance Discharge Recommendations PT Discharge Recommendations Home with Assistance Transportation Needs at Discharge Private Vehicle
[2023-07-10] MEDS: CALCIUM CARBONATE 500 MG TAB 1000 MG PO (11:38)
[2023-07-10] MEDS: CELECOXIB 100 MG CAPSULE PO (11:38)
[2023-07-10] MEDS: ESCITALOPRAM 10 MG TABLET 20 MG PO (11:38)
[2023-07-10] MEDS: estradioL 1 MG TABLET 0.5 MG PO (11:39)
[2023-07-10] MEDS: BACLOFEN 10 MG TABLET 20 MG PO (11:39)
[2023-07-10 12:00] VITALS: BP 146/100; PULSE 76; RESP 16; TEMP 36.3; O2SAT 94
--- NOTE | 2023-07-10 13:41 | OT.IPNOTE ---
Spoke to pt and pt states has no OT needs and able to do her ADLs on her own. Pt mainly expressed having lots of stressors in her life. Spoke to pt of stress management strategies. NO charge. Discharge pt for OT services.
[2023-07-10 15:05] LABS: Thyroid Stimulating Hormone 1.15 uIU/mL (0.47-4.68)
--- NOTE | 2023-07-10 15:53 | P.DS_ITS ---
History of Present Illness History of Present Illness Chief complaint: confusion, body jerking, seen by paramedics Narrative: The patient is a 52-year-old female with a long history of alcohol use disorder. The patient also has history of depression, anxiety and Yamini's thyroiditis. She has had intermittent shaking for the last 2 weeks which has increased over the last several days. She has also had new altered mental status. Her found her not making sense this morning and possibly hallucinating. He brought her to the emergency department where she had a negative brain MRI. The patient has an unknown last alcohol intake. Her BAL was negative this morning. The patient is confused and able to answer some questions but not other questions. She has not oriented to year or place but does note that she is in [place]. He notes that he was out throughout the day yesterday and did not see her. He has not sure when she last drank. She does not use illicit drugs but does also take chronic clonazepam and has for years. He is unsure if she took more or less recently. He is also unsure of the dose and frequency of her scheduled clonazepam. He has not heard of any recent injuries and she had not complained to being ill prior to yesterday. She has had similar episodes with transient alteration in the past. The patient is not able to really comply or participate in a review of systems. Discharge Providers Provider Date of admission: 07/09/23 07:14 Discharge Date: 07/10/23 Primary care physician: Barry Em MD Consults: 07/09/23 10:34 Consult to Occupational Therapy Evaluate & Treat Comment: Physician Instructions: Evaluate and treat Consult to Physical Therapy Evaluate & Treat Comment: Physician Instructions: Evaluate and Treat 07/09/23 11:05 Consult to Export Traffic Department Manager Routine Comment: Discharge provider: Pino Santiago MD Summary Hospital Course Discharge Diagnosis: 1. Alcohol withdrawal, present on admission and improved. 2. Metabolic encephalopathy, present on admission and improved. B12 normal. CT brain normal. 3. Severe alcohol use disorder, present on admission and active. 4. Hypokalemia, present on admission and improved. 5. Bilateral hand tremor, present on admission and chronic. 6. Yamini's thyroiditis on chronic Synthroid, present on admission and stable. TSH normal. 7. Nicotine dependence, present on admission and active. Hospital Course: The patient was admitted with metabolic encephalopathy. She was treated with Librium initially but then began to score on CIWA was converted to lorazepam oral dosing. She improved over the next 12 hours. Her mental status was much improved on the 2nd day in the hospital. She still had a fine motor tremor of both hands which she describes as chronic and unrelated to her periods of alcohol use or withdrawal. Her potassium was repleted. Had long discussion with her and her on the day of discharge stressing the importance of alcohol cessation as well as close follow up with PCP and consideration of starting meetings for alcohol cessation. Status at Discharge Cognitive/behavioral status at discharge: oriented Functional status at discharge: independent ambulation Overall status at discharge: patient is progressing back to baseline Time Spent with Patient Time spent: Greater than 30 minutes Exam Vital Signs (past 8 hours): - 07/10/23 08:00 07/10/23 08:00 07/10/23 12:00 Temperature 97.1 F L 97.1 F L 97.4 F L Pulse Rate 71 71 76 Respiratory Rate 16 16 16 Blood Pressure 140/93 H 140/93 H 146/100 H Pulse Oximetry 94 94 94 Oxygen Delivery Method Room Air Oxygen Flow Rate 0 Narrative Exam Narrative: Alert and oriented x3, no distress. Fluent speech, normal affect. Lungs are clear, normal rate and effort. Heart is regular, no murmur. Abdomen is soft, non-tender. Legs are free of edema. Objective Imaging Multiple studies:: Radiologist's impression: MRI brain was unremarkable, no acute findings. She does have some paranasal sinus disease. CT brain was negative Labs 07/10/23 05:13 07/10/23 05:13 Labs: Laboratory Results - last 24 hr 07/09/23 07/10/23 07/10/23 01:45 05:13 05:17 WBC 5.5 RBC 3.55 L Hgb 9.8 L Hct 30.3 L MCV 85.3 MCH 27.7 MCHC 32.5 RDW 21.3 H Plt Count 180 Neut % (Auto) 54.3 Lymph % (Auto) 36.3 [place] % (Auto) 7.7 Eos % (Auto) 0.9 L Baso % (Auto) 0.8 Neut # (Auto) 3000 Lymph # (Auto) 2000 [place] # (Auto) 400 Eos # (Auto) 0 Baso # (Auto) 0 Platelet Estimate Adequate on smear RBC Morphology See below Anisocytosis 2+ H Macrocytosis 2+ H Sodium 139 Potassium 2.9 L Chloride 110 H Carbon Dioxide 22 BUN 20 H Creatinine 0.65 Estimated GFR > 60 BUN/Creatinine Ratio 30.8 H Glucose 74 Calcium 8.5 Vitamin B12 679 TSH 1.15 D PFSH Medical History Neuropathy Chronic venous insufficiency Obstructive sleep apnea (Unknown) GERD (gastroesophageal reflux disease) (Unknown) Allergy (Unknown) Restless leg syndrome (2014) Anxiety (1989) Shoulder pain (Unknown) Foot pain (2003) Chronic back pain (Unknown) Vertigo (1979) Painful menstrual periods (Unknown) Heavy menses (Unknown) IBS (irritable bowel syndrome) (1985) Surgical History 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) Hx of sinus surgery (2011) History of removal of laparoscopic gastric banding device (2014) Hx of laparoscopic gastric banding (2011) Family History Grandmother Cancer Mental health problem Mother Age: 75 Mental health disorder Sister Age: 57 Heart disease Hypertension High cholesterol Mental health problem Asthma COPD (chronic obstructive pulmonary disease) Social History household members: spouse and family Smoking Status: Current every day smoker Tobacco: How many years used: 10 second hand exposure: No alcohol intake: current substance use type: does not use Discharge Assessment & Plan Assessment and Plan Assessment: 1. Metabolic encephalopathy, present on admission and active. -this appears to likely relate to chronic alcohol use and/or withdrawal. 2. Probable early alcohol withdrawal, present on admission and active. 3. Severe alcohol use disorder, present on admission and active. 4. Nicotine dependence smoking 2 packs of cigarettes a day, present on admission and active. 5. Hypokalemia, present on admission and active. 6. Depression and anxiety, present on admission active. 7. GERD, present on admission and active. 8. Yamini's thyroiditis, present on admission and active. Plan of Treatment: She will discharge and will resume usual medications. In addition she is advised to pursue alcohol cessation and have close follow up with primary care. She will continue Nicoderm patches. She uses clonazepam on a daily basis for his anxiety and this is usually dose at least once a day and rarely twice a day. Also shared the importance of the alcohol cessation of her as well. Discharge Plan Discharge Plan Patient Disposition: Home Provider Discharge Comment: Patient wants to leave, she is stable for discharge. Discharge orders & Medications Prescriptions: Continued cholecalciferol (vitamin D3) 50 mcg (2,000 unit) capsule 50 mcg PO DAILY Patient Comments: TAKE ONE CAPSULE BY MOUTH ONE TIME DAILY hydrochlorothiazide 25 mg tablet 25 mg PO DAILY PRN (Reason: swelling) naproxen sodium 220 mg capsule 220 mg PO BID PRN (Reason: Pain, Mild) albuterol sulfate 90 mcg/actuation aerosol powdr breath activated 2 puff INHALATION Q4H PRN (Reason: shortness of breath or wheezing) Qty: 1 0RF Patient Comments: few weeks Rx Instructions: administer with spacer progesterone micronized [Prometrium] 100 mg capsule 100 mg PO QAM Qty: 30 11RF Rx Instructions: off 7 days; repeat cycle bupropion HCl 150 mg tablet extended release 24 hr 300 mg PO QAM Qty: 60 2RF escitalopram oxalate 20 mg tablet 20 mg PO DAILY Qty: 90 1RF clonazepam 0.5 mg tablet 0.5 mg PO BID PRN (Reason: Anxiety) Qty: 60 0RF Rx Instructions: Do not take with alcohol. baclofen 20 mg tablet 20 mg PO TID PRN (Reason: Muscle Spasm) 7 Days Qty: 20 0RF fluticasone propion-salmeterol 250-50 mcg/dose blister with device 1 ea inhalation BID dicyclomine 10 mg capsule 10 mg PO 4XD PRN (Reason: IBS) ondansetron HCl 8 mg tablet 8 mg PO DAILY PRN (Reason: Nausea And Vomiting) hydroxyzine HCl 50 mg tablet 50 mg PO BID PRN (Reason: Anxiety) propranolol 20 mg tablet 20 mg PO DAILY PRN (Reason: Anxiety) Patient Comments: Takes for PTSD celecoxib [Celebrex] 100 mg capsule 100 mg PO DAILY PRN (Reason: Pain (Scale Score 1-3)) levothyroxine 75 mcg tablet 75 mcg PO DAILY estradiol 0.5 mg tablet 0.5 mg PO DAILY Medication counseling provided by Pharmacist: No Follow up/Referrals: Barry Em MD [Primary Care Provider] - Diet/Activity/Treatments Diet: Diet as Tolerated Visit Report/Discharge Packet Instructions: Encephalopathy Stand Alone Forms: Patient Portal/API, Stroke Signs & Symptoms Discharge Data Primary Care Provider: Barry Em Attending Provider: Pino Santiago Admit Date/Time: 07/09/23 07:14
[2023-07-10 16:00] VITALS: BP 129/86; PULSE 71; RESP 16; TEMP 36.4; O2SAT 95
--- NOTE | 2023-07-10 16:26 | PC.NURSE ---
Pt is ready for discharge home with Spouse Lam. IV has been removed. Went over d/c instructions with Pt and Spouse - discussed d/c meds, time of last dose, reviewed stroke education, reminded Pt to drink fluids to prevent constipation or dehydration. Recommended Pt avoid alcohol if possible. Pt to follow up with Dr. Em in one week and to call and make her appointment when she is available. Pt and Spouse denied further questions and Pt will be taken out via w/c by KEY ACCOUNT COORDINATOR to POV with Spouse and all belongings.
--- NOTE | 2023-07-10 16:31 | CM.DANOTE ---
DCP Assessment Note Pt is a 52yo F here follow acute metabolic encephalopathy. PCP Manav Miller and Medicaid. CARDIOPULMONARY TECHNICIAN reviewed EMR. Per RN, yesterday pt was only oriented to self. Today, pt is A/Ox4 but occasionally tangential. RN reports encouraging PCP follow up for coordinated care between pt's various doctors due to long PMH. Per chart review, pt has hx of depression/anxiety/alcohol use disorder. CIWAs have ranged from 5-13 throughout stay. RN reports 5 is probably baseline due to PMH of muscle tremors. Per RN, last drink was either saturday or saturday. PT rec home with assistance. Pt uses a cane at baseline. CARDIOPULMONARY TECHNICIAN met with pt and spouse at bedside. Had lengthy dcp/alcohol use conversation. Pt reports working on getting coordinated care arranged with PCP but if not, will try and transition to [facility]. Pt was often tangential in speech but easily redirected to topics at hand.. Spouse/pt reported on various stressors in their lives. Caring for aging mom, financial, health, and employment related stressors. Spouse and pt both report a long hx of alcohol use. Pt and spouse were both vague about amount/frequency/drink of choice. Pt and spouse reported on various triggers for alcohol use. Spouse in disagreement that pt is going through withdrawals, I know withdrawals this is not it. CARDIOPULMONARY TECHNICIAN provided withdrawal education/psychoeducation to pt and spouse on nature of alcohol withdrawals. Pt reports last drink was Saturday and is eager to continue being sober due to her various medical concerns. Pt reports no Hx of treatment in past. CARDIOPULMONARY TECHNICIAN provided information on local AA, rehab OP and INPT, and two centers that accept her insurance. Pt interested in OP help. Spouse reports he's eager to try and pursue sobriety again to help spouse and will also seek treatment. Pt and spouse report no other CM needs at this time. Plan: home with spouse when stable, pt will F/u with PCP and OP alcohol use resources to best of ability. CM team will follow as needed. ROMARIO Malone Discharge Planning/Care Management Advanced directive, confirm from FAMILY Start: 07/09/23 11:05 Freq: Q24H Status: Active Protocol: Document 07/09/23 11:05 CM (Rec: 02/13/24 11:37 CM [id number]) Advance Directive, confirm on record Time 11:37 Person contacted Spouse Copy received No Copy received No Advanced directive available on record No Document 07/10/23 12:00 CM (Rec: 07/10/23 12:53 CM [id number]) Advance Directive, confirm on record Time 11:37 Person contacted Spouse Copy received No Copy received No Advanced directive available on record No CM Discharge Assessment Start: 07/10/23 16:29 Freq: Status: Active Protocol: Document 07/10/23 16:29 SL (Rec: 07/10/23 16:31 SL [id number]) Discharge Planning Assessment Assigned Construction Recruiter ROMARIO Martinez DPOA/Assigned Designee Name Lam spouse Contact Information [phone] Advance Directives? No Advance Directives on File No History Provided By Patient,Significant Other, Medical Record Prior Living Arrangements House Household Members spouse,family Type of transporation used prior to Drives own vehicle admit Independent with ADL's Yes Is patient alert and oriented? Yes DME Already Rented / Owned Cane Barriers to Discharge No Discharge Plan Home Transportation Arrangement Spouse Additional Comment Home today SNF/HH Preference Hx of Sig HH Whiteboard Updated in Patient Room with Yes name and ext. # of Construction Recruiter Review Status In Process Next Review Type Continued Stay Review
== END 2023-07-10 16:30 | disposition home or self-care (01) ==
LOC: ED 06:36 → AC 07:15
PROVIDERS: Admitting Provider Hospitalist; Emergency Provider Emergency Medicine; Family Provider Family Medicine; PCP Family Medicine; Visit Provider Hospitalist
DX: F10.239 Alcohol dependence with withdrawal, unspecified (principal); G93.41 Metabolic encephalopathy; E87.6 Hypokalemia; R25.1 Tremor, unspecified; E06.3 Autoimmune thyroiditis; F17.210 Nicotine dependence, cigarettes, uncomplicated
CPT/HCPCS: 36415; 70450; 70551; 71045; 80048; 80053; 80305; 80320; 80329; 81001; 82140; 82550; 82607; 84443; 84484; 85025; 85610; 93005; 93010; 96360; 96361; 96372; 97161; 99284; G0378; G0480; J1644

== ENCOUNTER 2024-01-02 22:16 | Emergency (ER) | payer OTHER, MEDICAID, SELFPAY ==
[2023-07-09 08:35] VITALS: BMI 24.2
[2024-01-02] VITALS (8 sets, daily range): BP systolic 88–113; BP diastolic 51–74; PULSE 68–89; RESP 12–20; TEMP 36.8; O2SAT 95–100; BMI 24.0
--- NOTE | 2024-01-02 22:43 | PC.NURSE ---
Incident report placed in [facility] related to fall patient had while in another patients room.
--- NOTE | 2024-01-02 22:45 | EKG_ITS ---
[address] [address] Test Date: 2024-01-02 Pat Name: Rebekah Washington Department: Room: Gender: Female Healthcare Translator: MARY : 1970 Requested By: Order Number: [id number] Reading MD: Ryan Sanchez MD Measurements Intervals Clark Rate: 75 P: 27 MA: 190 QRS: 8 QRSD: 66 T: 59 QT: 446 QTc: 498 Interpretive Statements Sinus rhythm with fusion complexes Septal infarct , age undetermined Electronically Signed On 01-03-2024 7:34:51 PDT by Ryan Sanchez MD
--- NOTE | 2024-01-02 22:45 | DI.CT.S_ITS ---
PROCEDURE: CT HEAD/BRAIN WO CON INDICATIONS: fall/hit head TECHNIQUE: Noncontrast 4.5 mm thick angled axial sections acquired from the foramen magnum to the vertex, with coronal and sagittal reformats. For radiation dose reduction, the following was used: automated exposure control, adjustment of mA and/or kV according to patient size. COMPARISON: [facility], CT, CT HEAD/BRAIN WO CON, 07/09/2023, 2:34. FINDINGS: Image quality: Diagnostic. CSF spaces: Basal cisterns are patent. No extra-axial fluid collections. Ventricles are normal in size and shape. Brain: No midline shift. No intracranial masses or hemorrhage. [place]hp[place]-white matter interface is normal. Skull and face: Calvarium and visualized facial bones are intact, without suspicious lesions. Sinuses: Mucosal thickening or mucous retention cyst at the left maxillary sinus. Mastoids are clear. IMPRESSION: No acute intracranial pathology. Dictated by: Hal Hartman M.D. on 01/03/2024 at 0:33 Approved by: Hal Hartman M.D. on 01/03/2024 at 0:35
--- NOTE | 2024-01-02 22:45 | DI.CT.S_ITS ---
PROCEDURE: CT CERVICAL SPINE WO CON INDICATIONS: fall/hit head TECHNIQUE: Noncontrast 3 mm thick sections acquired from the skull base to the T4 level. Sagittal and coronal reformats were then constructed. For radiation dose reduction, the following was used: automated exposure control, adjustment of mA and/or kV according to patient size. COMPARISON: [facility], CR, XR CHEST 1V, 01/02/2024, 23:01. [facility], CT, CT HEAD/BRAIN WO CON, 01/02/2024, 22:48. [facility], CT, CT CERVICAL SPINE WO CON, 12/02/2021, 16:09. FINDINGS: Image quality: Excellent. Bones: No acute appearing fractures or dislocations. There is a stable mild anterior wedge deformity seen at the T1 level, which is stable compared to 12/02/2021. Visualized superior ribs are intact. Soft tissues: Prevertebral soft tissues are normal in thickness. No paravertebral hematomas. No apical pneumothoraces. IMPRESSION: Negative for acute fracture. Stable remote T1 anterior wedge deformity. Dictated by: Ld Jimenez M.D. on 01/02/2024 at 23:36 Approved by: Ld Jimenez M.D. on 01/02/2024 at 23:37
--- NOTE | 2024-01-02 22:45 | DI.RAD.S_ITS ---
PROCEDURE: XR CHEST 1V INDICATIONS: chest pain TECHNIQUE: One view of the chest was acquired. COMPARISON: [facility], CT, CT CERVICAL SPINE WO CON, 01/02/2024, 22:48. [facility], CT, CT HEAD/BRAIN WO CON, 01/02/2024, 22:48. MR, MR HEAD/BRAIN WO CON, 07/09/2023, 7:28. [facility], CR, XR CHEST 1V, 07/09/2023, 2:27. FINDINGS: Clothing artifact is noted. Surgical changes and devices: None. Lungs and pleura: An incomplete inspiratory result is noted, causing a crowded appearance to the lung markings. No focal infiltrates are seen. No pneumothorax or significant pleural effusions are seen. Mediastinum: Mediastinal contours appear normal. Heart size is normal. Bones and chest wall: No suspicious bony lesions. Overlying soft tissues appear unremarkable. IMPRESSION: Limited portable chest examination, without a significant cardiopulmonary abnormality identified. Dictated by: Ld Jimenez M.D. on 01/02/2024 at 23:38 Approved by: Ld Jimenez M.D. on 01/02/2024 at 23:39
[2024-01-02] MEDS: SODIUM CHLORIDE 0.9% 1,000 ML 1000 ML IV (23:23)
[2024-01-02 23:40] LABS: INR 0.9 (0.9-1.3); Prothrombin Time 10.3 SECONDS (9.4-12.5)
[2024-01-02 23:42] LABS: Add Manual Diff / Slide Review NO; Basophils Absolute Auto 0 /uL (0-100); Basophils Percent Auto 0.6 % (0-2); Eosinophils Absolute Auto 100 /uL (0-450); Eosinophils Percent Auto 1.4 % (2-4); Hematocrit 23.3 % (36-46); Hemoglobin 7.5 g/dL (12.0-16.0); Lymphocytes Absolute Auto 2300 /uL (1100-4500); Mean Corpuscular HGB Conc 32.1 % (30-36); Mean Corpuscular Hemoglobin 24.5 PG (26-34); Mean Corpuscular Volume 76.4 fL (80-100); Monocytes Absolute Auto 500 /uL (0-900); Monocytes Percent Auto 7.2 % (3-14); Neutrophils Absolute Auto 4600 /uL (1500-7000); Neutrophils Percent Auto 60.8 % (50-75); Platelet Count 324 X10^3/uL (150-400); Red Blood Cell Count 3.05 X10^6/uL (4.0-5.2); Red Cell Distribution Width 21.5 % (11.6-14.8); White Blood Cell Count 7.6 X10^3/uL (4.5-11.0)
[2024-01-02 23:43] LABS: PTT Partial Thromboplastin Tim 35 SECONDS (25.1-36.5)
[2024-01-02 23:44] LABS: Alanine Aminotransferase 10 IU/L (<35); Albumin 2.8 g/dL (3.5-5.0); Alkaline Phosphatase 122 U/L (38-126); Aspartate Aminotransferase 24 IU/L (14-36); BUN Creatinine Ratio 12.4 (6-22); Bilirubin Total 0.4 mg/dL (0.2-1.3); Blood Urea Nitrogen 16 mg/dL (7-17); Calcium 8.5 mg/dL (8.4-10.2); Carbon Dioxide 25 mmol/L (22-32); Chloride 110 mmol/L (98-107); Creatine Kinase 39 U/L (30-135); Estimated Glomerular Filt Rate 50 mL/min (>60); Globulin 2.7 g/dL (1.7-4.1); Glucose 81 mg/dL (70-100); HEMOLYSIS < 15 (0-50); Lipase 159 U/L (23-300); Magnesium 2.1 mg/dL (1.6-2.3); Sodium 137 mmol/L (137-145); Total Protein 5.5 g/dL (6.3-8.2)
--- NOTE | 2024-01-02 23:50 | PC.NURSE ---
FILLING MACHINE TENDER note: Attempted to do orthostatic vitals. It was very hard to wake up patient in order to get her to sit up. Once I got patient to sit up, patient was very unsteady, attempted to stand patient up, patient was very unsteady and said I can't stand up. Patient sat down before blood pressure could be taken. RN told
[2024-01-02 23:55] LABS: NT-proBNP (BNP-Adult 18+) 538 pg/mL (<125); Troponin I < 0.012 ng/mL (0.01-0.034)
[2024-01-03] VITALS (17 sets, daily range): BP systolic 95–129; BP diastolic 51–79; PULSE 61–80; RESP 13–20; TEMP 36.4; O2SAT 92–100
[2024-01-03 00:03] LABS: Anisocytosis 2+; Hypochromasia 1+; Microcytosis 1+
--- NOTE | 2024-01-03 01:17 | ED.FALL ---
HPI - Fall General Chief Complaint: Fall Stated Complaint: multiple falls Time Seen by Provider: 01/02/24 22:54 Source: patient Mode of arrival: Wheelchair History of Present Illness HPI Narrative: 53-year-old female who uses walker as a baseline, chart history of alcohol use and metabolic encephalopathy, history of anxiety and panic attacks, was in the emergency department with her mother who was triage he was patient being evaluated for abdominal pain, patient leaned over the gurney of mother, lost her balance, then fell to the ground, seemed confused after fall. No preceding chest pain or trouble breathing, no shaking or seizure-like activity. She is fairly unsteady with her gait as a baseline. No recent illness symptoms. No preceding dizziness. No fevers or chills. No nausea or vomiting. No loose stools, black or red stools. No recent urinary tract infection symptoms. No focal weakness to face arm or leg. No trouble seeing or speaking. No history of stroke Related Data Home Medications Medication Instructions Recorded Confirmed cholecalciferol (vitamin D3) 50 50 mcg PO DAILY 12/26/21 07/09/23 mcg (2,000 unit) capsule hydrochlorothiazide 25 mg tablet 25 mg PO DAILY PRN swelling 12/26/21 07/09/23 naproxen sodium 220 mg capsule 220 mg PO BID PRN Pain, Mild 12/26/21 07/09/23 celecoxib 100 mg capsule (Celebrex) 100 mg PO DAILY PRN Pain (Scale 07/09/23 07/09/23 Score 1-3) dicyclomine 10 mg capsule 10 mg PO 4XD PRN IBS 07/09/23 07/09/23 estradiol 0.5 mg tablet 0.5 mg PO DAILY 07/09/23 07/09/23 fluticasone 250 mcg-salmeterol 50 1 ea inhalation BID 07/09/23 07/09/23 mcg/dose blistr powdr for inhalation hydroxyzine HCl 50 mg tablet 50 mg PO BID PRN Anxiety 07/09/23 07/09/23 levothyroxine 75 mcg tablet 75 mcg PO DAILY 07/09/23 07/09/23 ondansetron HCl 8 mg tablet 8 mg PO DAILY PRN Nausea And 07/09/23 07/09/23 Vomiting Previous Rx's Medication Instructions Recorded albuterol sulfate 90 mcg/actuation 2 puff inhalation Q4H PRN 12/30/17 breath activated powder inhaler shortness of breath or wheezing #1 ea baclofen 20 mg tablet 20 mg PO TID PRN Muscle Spasm 7 08/14/21 days #20 tabs progesterone micronized 100 mg 100 mg PO QAM #30 caps 09/07/22 capsule (Prometrium) escitalopram oxalate 20 mg tablet 20 mg PO DAILY #90 tabs 05/13/23 clonazepam 0.5 mg tablet 0.5 mg PO BID PRN Anxiety #60 tabs 07/08/23 bupropion HCl 150 mg 24 hr tablet, 300 mg (2 x 150 mg) PO QAM #60 tabs 08/09/23 extended release propranolol 20 mg tablet 20 mg PO TID PRN Anxiety #90 tabs 08/09/23 clonazepam 0.5 mg tablet 0.5 mg PO BID Anxiety #12 tabs 08/15/23 Allergies Allergy/AdvReac Type Severity Reaction Status Date / Time No Known Drug Allergies Allergy Verified 09/13/22 13:48 Review of Systems Review of Systems Narrative: see HPI 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) Hx of sinus surgery (2011) History of removal of laparoscopic gastric banding device (2014) Hx of laparoscopic gastric banding (2011) Family History Grandmother Cancer Mental health problem Mother Age: 75 Mental health disorder Sister Age: 57 Heart disease Hypertension High cholesterol Mental health problem Asthma COPD (chronic obstructive pulmonary disease) Social History household members: spouse and family Smoking Status: Current every day smoker Tobacco: How many years used: 10 second hand exposure: No alcohol intake: current substance use type: does not use Smoking Status: Current every day smoker tobacco type: cigarettes alcohol intake frequency: 3 or more drinks per day Substance Use Type: does not use Exam Narrative Exam Narrative: GENERAL: Well-developed patient, in mild distress. HEAD: Atraumatic. Normocephalic. EYES: Pupils equal round and reactive. Extraocular motions intact. No scleral icterus. No injection or drainage. ENT: Nose without bleeding, purulent drainage. Throat without erythema, tonsillar hypertrophy or exudate. Airway patent. NECK: Trachea midline. Non tender CARDIOVASCULAR: Regular rate and rhythm without murmurs, gallops, or rubs. RESPIRATORY: Clear to auscultation. Breath sounds equal bilaterally. No wheezes, rales, or rhonchi. GASTROINTESTINAL: Abdomen soft, non-tender, nondistended. EXTREMITIES: No edema or joint tenderness. BACK: Nontender without deformity or crepitance. No flank tenderness. NEURO: AOx3. Nonfocal motor exam SKIN: No rash or erythema of visible areas Initial Vital Signs Initial Vital Signs: Vital Signs Temperature 98.2 F 01/02/24 22:30 Pulse Rate 89 01/02/24 22:30 Respiratory Rate 16 01/02/24 22:30 Blood Pressure 88/51 L 01/02/24 22:30 Pulse Oximetry 98 01/02/24 22:30 Oxygen Delivery Method Room Air 01/02/24 22:30 Course Orders Ordered: ED Orders 01/02/24 22:45 CT cervical spine wo con Stat CT head/brain wo con Stat XR chest 1V Stat EKG-12 Lead Stat 01/02/24 23:21 Complete Blood Count AUTO DIFF Stat Comprehensive Metabolic Panel Stat Lipase Stat Magnesium Stat NT-proBNP (BNP-Adult 18+) Stat PTT Partial Thromboplastin Bashir Stat Prothrombin Time INR Stat Troponin & CK Cardiac Panel Stat 01/03/24 03:15 Troponin I Stat Discontinued Medications Sodium Chloride (Normal Saline 0.9%) 1,000 mls @ 1,000 mls/hr IV BOLUS ONE Stop: 01/02/24 23:44 Last Infusion: 01/03/24 00:17 Dose: Infused Documented By: Admin: 01/02/24 23:23 Dose: 1,000 mls/hr Documented By: YUMIKO POTASSIUM CHLORIDE IN WATER (Potassium Cl 10 Meq/100 Ml Melina) 10 meq in 100 mls @ 100 mls/hr IV Q1H MIMI Stop: 01/03/24 03:29 Last Infusion: 01/03/24 04:10 Dose: Infused Documented By: Admin: 01/03/24 02:59 Dose: 100 mls/hr Documented By: Infusion: 01/03/24 02:59 Dose: Infused Documented By: Admin: 01/03/24 01:57 Dose: 100 mls/hr Documented By: FAUSTINA Potassium Chloride (Potassium Chloride 20 Meq/15 Ml Udc) 40 meq PO NOW ONE Stop: 01/03/24 01:20 Last Admin: 01/03/24 03:22 Dose: 40 meq Documented By: Vital Signs Vital signs: Vital Signs - 8 hr 01/03/24 00:00 01/03/24 00:00 01/03/24 00:30 Pulse Rate 72 70 Respiratory Rate 13 16 Blood Pressure 118/76 Pulse Oximetry 100 97 Oxygen Delivery Method Oxygen Flow Rate 01/03/24 00:30 01/03/24 01:00 01/03/24 01:00 Pulse Rate 69 Respiratory Rate 17 Blood Pressure 107/71 100/60 Pulse Oximetry 97 Oxygen Delivery Method Oxygen Flow Rate 01/03/24 01:30 01/03/24 01:30 01/03/24 02:00 Pulse Rate 64 77 Respiratory Rate 16 18 Blood Pressure 95/62 Pulse Oximetry 100 98 Oxygen Delivery Method Oxygen Flow Rate 01/03/24 02:30 01/03/24 02:31 01/03/24 02:31 Pulse Rate 66 66 Respiratory Rate 16 16 Blood Pressure 129/75 Pulse Oximetry 97 97 Oxygen Delivery Method Nasal Cannula Nasal Cannula Oxygen Flow Rate 2 2 01/03/24 03:00 01/03/24 03:02 01/03/24 03:02 Pulse Rate 63 63 Respiratory Rate 18 17 Blood Pressure 101/67 Pulse Oximetry 92 95 Oxygen Delivery Method Nasal Cannula Nasal Cannula Oxygen Flow Rate 2 2 01/03/24 03:30 01/03/24 03:31 01/03/24 03:31 Pulse Rate 80 78 Respiratory Rate Blood Pressure 115/66 Pulse Oximetry Oxygen Delivery Method Oxygen Flow Rate 01/03/24 04:00 01/03/24 04:00 01/03/24 04:30 Pulse Rate 71 Respiratory Rate 14 Blood Pressure 114/79 110/51 L Pulse Oximetry 100 Oxygen Delivery Method Nasal Cannula Oxygen Flow Rate 1 01/03/24 04:30 01/03/24 05:00 01/03/24 05:00 Pulse Rate 71 61 Respiratory Rate 16 20 Blood Pressure 100/66 Pulse Oximetry 99 99 Oxygen Delivery Method Nasal Cannula Room Air Oxygen Flow Rate 1 01/03/24 05:41 01/03/24 07:22 Pulse Rate 74 Respiratory Rate 16 Blood Pressure 109/76 Pulse Oximetry 99 96 Oxygen Delivery Method Room Air Room Air Oxygen Flow Rate MDM - Fall Lab Data Attestation: I reviewed the patient's lab results. 01/02/24 23:21 01/02/24 23:21 Labs: Lab Results 01/02/24 01/03/24 Range/Units 23:21 03:15 WBC 7.6 (4.5-11.0) X10^3/uL RBC 3.05 L (4.0-5.2) X10^6/uL Hgb 7.5 L (12.0-16.0) g/dL Hct 23.3 L (36-46) % MCV 76.4 L (80-100) fL MCH 24.5 L (26-34) PG MCHC 32.1 (30-36) % RDW 21.5 H (11.6-14.8) % Plt Count 324 (150-400) X10^3/uL Neut % (Auto) 60.8 (50-75) % Lymph % (Auto) 30.0 (25-40) % Rosebud % (Auto) 7.2 (3-14) % Eos % (Auto) 1.4 L (2-4) % Baso % (Auto) 0.6 (0-2) % Neut # (Auto) 4600 (9449-0466) /uL Lymph # (Auto) 2300 (4495-0526) /uL Rosebud # (Auto) 500 (0-900) /uL Eos # (Auto) 100 (0-450) /uL Baso # (Auto) 0 (0-100) /uL RBC Morphology See below Hypochromasia 1+ H Anisocytosis 2+ H Microcytosis 1+ H PT 10.3 (9.4-12.5) SECONDS INR 0.9 (0.9-1.3) APTT 35 (25.1-36.5) SECONDS Sodium 137 (137-145) mmol/L Potassium 3.0 L (3.4-5.1) mmol/L Chloride 110 H (98-107) mmol/L Carbon Dioxide 25 (22-32) mmol/L BUN 16 (7-17) mg/dL Creatinine 1.29 H (0.52-1.04) mg/dL Estimated GFR 50 L (>60) mL/min BUN/Creatinine Ratio 12.4 (6-22) Glucose 81 (70-100) mg/dL Calcium 8.5 (8.4-10.2) mg/dL Magnesium 2.1 (1.6-2.3) mg/dL Total Bilirubin 0.4 (0.2-1.3) mg/dL AST 24 (14-36) IU/L ALT 10 (<35) IU/L Alkaline Phosphatase 122 (38-126) U/L Total Creatine Kinase 39 (30-135) U/L Troponin I < 0.012 < 0.012 (0.01-0.034) ng/mL NT-Pro-B Natriuret Pep 538 H (<125) pg/mL Total Protein 5.5 L (6.3-8.2) g/dL Albumin 2.8 L (3.5-5.0) g/dL Globulin 2.7 (1.7-4.1) g/dL Albumin/Globulin Ratio 1.0 (1.0-2.8) Lipase 159 (23-300) U/L Imaging Data CT scan - head: Radiologist's Impression: [address] [address] [address] Scan Report Signed Patient: Rebekah Washington MR#: [id number] : 1970 Acct:[id number] Age/Sex: 53 / F Date of Service: 01/02/24 Loc: ED Accession Number: [id number] Procedure: CT head/brain wo con Ordering Provider: Reggie Cooley MD PROCEDURE: CT HEAD/BRAIN WO CON INDICATIONS: fall/hit head TECHNIQUE: Noncontrast 4.5 mm thick angled axial sections acquired from the foramen magnum to the vertex, with coronal and sagittal reformats. For radiation dose reduction, the following was used: automated exposure control, adjustment of mA and/or kV according to patient size. COMPARISON: [facility], CT, CT HEAD/BRAIN WO CON, 07/09/2023, 2:34. FINDINGS: Image quality: Diagnostic. CSF spaces: Basal cisterns are patent. No extra-axial fluid collections. Ventricles are normal in size and shape. Brain: No midline shift. No intracranial masses or hemorrhage. Deshpande-white matter interface is normal. Skull and face: Calvarium and visualized facial bones are intact, without suspicious lesions. Sinuses: Mucosal thickening or mucous retention cyst at the left maxillary sinus. Mastoids are clear. IMPRESSION: No acute intracranial pathology. Dictated by: Hal Hartman M.D. on 01/03/2024 at 0:33 Approved by: Hal Hartman M.D. on 01/03/2024 at 0:35 CT - cervical spine: Radiologist's Impression: [place] [address] CT Scan Report Signed Patient: Rebekah Washington MR#: [id number] : 1970 Acct:[id number] Age/Sex: 53 / F Date of Service: 01/02/24 Loc: ED Accession Number: [id number] Procedure: CT cervical spine wo con Ordering Provider: Reggie Cooley MD PROCEDURE: CT CERVICAL SPINE WO CON INDICATIONS: fall/hit head TECHNIQUE: Noncontrast 3 mm thick sections acquired from the skull base to the T4 level. Sagittal and coronal reformats were then constructed. For radiation dose reduction, the following was used: automated exposure control, adjustment of mA and/or kV according to patient size. COMPARISON: [facility], CR, XR CHEST 1V, 01/02/2024, 23:01. [facility], CT, CT HEAD/BRAIN WO CON, 01/02/2024, 22:48. [facility], CT, CT CERVICAL SPINE WO CON, 12/02/2021, 16:09. FINDINGS: Image quality: Excellent. Bones: No acute appearing fractures or dislocations. There is a stable mild anterior wedge deformity seen at the T1 level, which is stable compared to 12/02/2021. Visualized superior ribs are intact. Soft tissues: Prevertebral soft tissues are normal in thickness. No paravertebral hematomas. No apical pneumothoraces. IMPRESSION: Negative for acute fracture. Stable remote T1 anterior wedge deformity. Dictated by: Ld Jimenez M.D. on 01/02/2024 at 23:36 Approved by: Ld Jimenez M.D. on 01/02/2024 at 23:37 Chest x-ray: Radiologist's Impression: [address] [address] XRay Report Signed Patient: Rebekah Washington MR#: [id number] : 1970 Acct:[id number] Age/Sex: 53 / F Date of Service: 01/02/24 Loc: ED Accession Number: [id number] Procedure: XR chest 1V Ordering Provider: Reggie Cooley MD PROCEDURE: XR CHEST 1V INDICATIONS: chest pain TECHNIQUE: One view of the chest was acquired. COMPARISON: [facility], CT, CT CERVICAL SPINE WO CON, 01/02/2024, 22:48. [facility], CT, CT HEAD/BRAIN WO CON, 01/02/2024, 22:48. MR, MR HEAD/BRAIN WO CON, 07/09/2023, 7:28. [facility], CR, XR CHEST 1V, 07/09/2023, 2:27. FINDINGS: Clothing artifact is noted. Surgical changes and devices: None. Lungs and pleura: An incomplete inspiratory result is noted, causing a crowded appearance to the lung markings. No focal infiltrates are seen. No pneumothorax or significant pleural effusions are seen. Mediastinum: Mediastinal contours appear normal. Heart size is normal. Bones and chest wall: No suspicious bony lesions. Overlying soft tissues appear unremarkable. IMPRESSION: Limited portable chest examination, without a significant cardiopulmonary abnormality identified. Dictated by: Ld Jimenez M.D. on 01/02/2024 at 23:38 Approved by: Ld Jimenez M.D. on 01/02/2024 at 23:39 ECG Data Attestation: I personally reviewed and interpreted this ECG as follows: Interpretation: Normal sinus rhythm with rate of 75, no obvious ST segment elevation or depression changes. IL interval 190, QRS 66, QTC 498. MDM Narrative Medical decision making narrative: 53-year-old female with history of alcohol abuse, metabolic encephalopathy, baseline walker ambulation, in the emergency department with her mother who is being evaluated for abdominal pain, leaned over the gurney and then fell to the floor, seemed more confused after the fall, unclear if she actually hit her head. CT head study showed no acute changes. CT cervical spine study negative. Labs sent showed low potassium level, IV and oral repletion. Patient observed further in the emergency department, improved, was able to ambulate with a walker to the bathroom, take oral potassium fluids well. Seemed to be improved and back to her baseline, discharged home. Encouraged to recheck potassium level as an outpatient. Home with family. Return precautions discussed Discharge Plan Departure Patient Disposition: Home Clinical Impression: Ground-level fall, Hypokalemia Activity Restrictions/Additional Instructions: 53-year-old female had ground level fall in the emergency department while in the room with her mother who was triage for evaluation. Patient usually uses a wheelchair, was leaning forward over her mother's gurney, seemed to lose her balance and then fell. Did not lose consciousness. CT head and cervical spine studies negative. EKG and troponin studies negative. Patient had improvement of symptoms, back to her baseline, with use of wheelchair. Potassium was noted 3.0 quite low, given IV and oral potassium repletion. Consider repeat blood potassium level testing as an outpatient. Discharged home with mother. Prescriptions: No Action cholecalciferol (vitamin D3) 50 mcg (2,000 unit) capsule 50 mcg PO DAILY Patient Comments: TAKE ONE CAPSULE BY MOUTH ONE TIME DAILY hydrochlorothiazide 25 mg tablet 25 mg PO DAILY PRN (Reason: swelling) naproxen sodium 220 mg capsule 220 mg PO BID PRN (Reason: Pain, Mild) albuterol sulfate 90 mcg/actuation aerosol powdr breath activated 2 puff INHALATION Q4H PRN (Reason: shortness of breath or wheezing) Qty: 1 0RF Patient Comments: few weeks Rx Instructions: administer with spacer progesterone micronized [Prometrium] 100 mg capsule 100 mg PO QAM Qty: 30 11RF Rx Instructions: off 7 days; repeat cycle escitalopram oxalate 20 mg tablet 20 mg PO DAILY Qty: 90 1RF clonazepam 0.5 mg tablet 0.5 mg PO BID PRN (Reason: Anxiety) Qty: 60 0RF Hold Instructions: per provider Rx Instructions: Do not take with alcohol. bupropion HCl 150 mg tablet extended release 24 hr 300 mg PO QAM Qty: 60 2RF propranolol 20 mg tablet 20 mg PO TID PRN (Reason: Anxiety) Qty: 90 2RF Patient Comments: Takes for PTSD clonazepam 0.5 mg tablet 0.5 mg PO BID Qty: 12 0RF Rx Instructions: [employer] Dr. Arango filling for Dr. Gomez baclofen 20 mg tablet 20 mg PO TID PRN (Reason: Muscle Spasm) 7 Days Qty: 20 0RF fluticasone propion-salmeterol 250-50 mcg/dose blister with device 1 ea inhalation BID dicyclomine 10 mg capsule 10 mg PO 4XD PRN (Reason: IBS) ondansetron HCl 8 mg tablet 8 mg PO DAILY PRN (Reason: Nausea And Vomiting) hydroxyzine HCl 50 mg tablet 50 mg PO BID PRN (Reason: Anxiety) celecoxib [Celebrex] 100 mg capsule 100 mg PO DAILY PRN (Reason: Pain (Scale Score 1-3)) levothyroxine 75 mcg tablet 75 mcg PO DAILY estradiol 0.5 mg tablet 0.5 mg PO DAILY Referrals: Barry Em MD [Primary Care Provider] - Stand Alone Forms: Patient Portal/API
[2024-01-03] MEDS: POTASSIUM CHLORIDE IN WATER 10 MEQ/100 ML PIGGYBACK 100 MEQ IV ×2 (01:57→02:59)
[2024-01-03] MEDS: POTASSIUM CHLORIDE 20 MEQ/15 ML UDC 40 MEQ PO (03:22)
[2024-01-03 03:48] LABS: Troponin I < 0.012 ng/mL (0.01-0.034)
--- NOTE | 2024-01-03 07:04 | PC.NURSE ---
Pt called left message to call back and that is ready for hand picker.
--- NOTE | 2024-01-03 07:14 | PC.NURSE ---
Pt able to ambulate to restroom with SBA and her FWW.
--- NOTE | 2024-01-03 07:31 | PC.NURSE ---
pt awake alert and ambulatory. Tj jordan called for pickup. ETA 15 min.
--- NOTE | 2024-01-03 08:20 | PC.NURSE ---
Pt at bedside; states pt is acting her normal self (nodding off, pale skin color). Pt able to ambulate w/ walker. Pt advised to not take any medicines that can increase risk of sleepiness d/t increase risk of falls. MD aware of pts status and states pt is clear for DC. and pt okay with going home.
--- NOTE | 2024-01-03 08:58 | PC.NURSE ---
MD Callahan denied need for further workup
== END 2024-01-03 08:58 | disposition home or self-care (01) ==
PROVIDERS: Emergency Provider Emergency Medicine; Family Provider Family Medicine; PCP Family Medicine
DX: E87.6 Hypokalemia (principal); S09.90XA Unspecified injury of head, initial encounter; R07.9 Chest pain, unspecified; W18.30XA Fall on same level, unspecified, initial encounter
CPT/HCPCS: 36415; 70450; 71045; 72125; 80053; 82550; 83690; 83735; 83880; 84484; 85025; 85610; 85730; 93005; 99285

== ENCOUNTER 2024-01-03 11:39 | Observation (INO) | payer OTHER, MEDICAID, SELFPAY ==
[2023-07-09 08:35] VITALS: BMI 24.2
[2024-01-03] VITALS (28 sets, daily range): BP systolic 99–128; BP diastolic 59–85; PULSE 61–89; RESP 12–36; TEMP 36.1–36.5; O2SAT 92–100; BMI 25.9
--- NOTE | 2024-01-03 11:50 | ED_ITS ---
HPI - General Adult General Chief complaint: Fall Stated complaint: Abd Pain Time Seen by Provider: 01/03/24 11:43 Source: patient and EMS Mode of arrival: EMS History of Present Illness HPI narrative: Patient is a 53-year-old female. History of alcohol abuse, alcohol withdrawal, Yamini's thyroiditis, issues with metabolic encephalopathy, generalized anxiety disorder, depression, IBS who is here for evaluation of right-sided rib pain, abdominal pain, shaking and generally not feeling very well. She was here in the emergency department last evening with her mother where she sustained a fall in the exam room. She was then checked into the emergency department. Was evaluated. Had CT scans of head and neck which were unremarkable. Was found to be somewhat anemic however was subsequently discharged home. She returns today pale, shaking. She was alert and oriented and is answering some questions but does seem to be slow at answering questions. Difficult for her to exactly describe where she was having discomfort she was points to the right side of her chest. She describes this as ?rib pain. Initially she did describe abdominal pain but later on stated that her abdomen was not hurting. Unsure when her last drink was. She had generalized shaking. According to the medical record she presented very similarly earlier this year and improved after an overnight hospital stay and it appears that it was associated with alcohol withdrawal. Related Data Home Medications Medication Instructions Recorded Confirmed cholecalciferol (vitamin D3) 50 50 mcg PO DAILY 12/26/21 07/09/23 mcg (2,000 unit) capsule hydrochlorothiazide 25 mg tablet 25 mg PO DAILY PRN swelling 12/26/21 07/09/23 naproxen sodium 220 mg capsule 220 mg PO BID PRN Pain, Mild 12/26/21 07/09/23 celecoxib 100 mg capsule (Celebrex) 100 mg PO DAILY PRN Pain (Scale 07/09/23 07/09/23 Score 1-3) dicyclomine 10 mg capsule 10 mg PO 4XD PRN IBS 07/09/23 07/09/23 estradiol 0.5 mg tablet 0.5 mg PO DAILY 07/09/23 07/09/23 fluticasone 250 mcg-salmeterol 50 1 ea inhalation BID 07/09/23 07/09/23 mcg/dose blistr powdr for inhalation hydroxyzine HCl 50 mg tablet 50 mg PO BID PRN Anxiety 07/09/23 07/09/23 levothyroxine 75 mcg tablet 75 mcg PO DAILY 07/09/23 07/09/23 ondansetron HCl 8 mg tablet 8 mg PO DAILY PRN Nausea And 07/09/23 07/09/23 Vomiting Previous Rx's Medication Instructions Recorded albuterol sulfate 90 mcg/actuation 2 puff inhalation Q4H PRN 12/30/17 breath activated powder inhaler shortness of breath or wheezing #1 ea baclofen 20 mg tablet 20 mg PO TID PRN Muscle Spasm 7 08/14/21 days #20 tabs progesterone micronized 100 mg 100 mg PO QAM #30 caps 09/07/22 capsule (Prometrium) escitalopram oxalate 20 mg tablet 20 mg PO DAILY #90 tabs 05/13/23 clonazepam 0.5 mg tablet 0.5 mg PO BID PRN Anxiety #60 tabs 07/08/23 bupropion HCl 150 mg 24 hr tablet, 300 mg (2 x 150 mg) PO QAM #60 tabs 08/09/23 extended release propranolol 20 mg tablet 20 mg PO TID PRN Anxiety #90 tabs 08/09/23 clonazepam 0.5 mg tablet 0.5 mg PO BID Anxiety #12 tabs 08/15/23 Allergies Allergy/AdvReac Type Severity Reaction Status Date / Time No Known Drug Allergies Allergy Verified 09/13/22 13:48 Review of Systems Review of Systems Narrative: See HPI, somewhat limited based on patient's presenting symptoms. 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) Hx of sinus surgery (2011) History of removal of laparoscopic gastric banding device (2014) Hx of laparoscopic gastric banding (2011) Family History Grandmother Cancer Mental health problem Mother Age: 75 Mental health disorder Sister Age: 57 Heart disease Hypertension High cholesterol Mental health problem Asthma COPD (chronic obstructive pulmonary disease) Social History household members: spouse and family Smoking Status: Current every day smoker Tobacco: How many years used: 10 second hand exposure: No alcohol intake: current substance use type: does not use Smoking Status: Current every day smoker tobacco type: cigarettes alcohol intake frequency: 3 or more drinks per day Substance Use Type: does not use Exam Initial Vital Signs Initial Vital Signs: Vital Signs Pulse Rate 79 01/03/24 11:43 Pulse Oximetry 100 01/03/24 11:43 Const General: ill appearing Other: Pale in color HENMT Head: normal to inspection, normocephalic and atraumatic Chest Other: No reproducible discomfort with palpation of the right-sided chest Resp Effort & Inspection: normal respiratory effort, no cough and tachypneic Auscultation: clear to auscultation bilaterally Cardio Rate: regular rate Rhythm: regular rhythm GI Inspection: normal to inspection and non-distended Neuro General: patient alert, patient awake and moves all extremities Other: Has tremors and mostly her upper extremities but actually in all 4 extremities. Does follow commands. Speech is normal. She was slow to answer some questions. Extrem General: capillary refill normal Course Orders Ordered: ED Orders 01/03/24 11:48 Acetaminophen Stat Ammonia (NH3) Stat Complete Blood Count AUTO DIFF Stat Comprehensive Metabolic Panel Stat Ethanol (ETOH) Stat Lipase Stat PTT Partial Thromboplastin Bashir Stat Prothrombin Time INR Stat Salicylate Stat TSH [Thyroid Stimulating Hormone] Stat 01/03/24 11:51 CT abdomen pelvis w con Stat XR ribs RT min 3V w CXR1V Stat 01/03/24 13:10 Urinalysis and Microscopic Stat Urine Drug Screen, Rapid Stat 01/03/24 13:13 Type and Screen Stat Sodium Chloride (Normal Saline 0.9%) 1,000 mls @ 125 mls/hr IV CONT MIMI Last Admin: 01/03/24 12:30 Dose: 125 mls/hr Documented By: SAMMI Discontinued Medications Chlordiazepoxide HCl (Chlordiazepoxide 25 Mg Capsule) 25 mg PO NOW ONE Stop: 01/03/24 12:15 Last Admin: 01/03/24 12:26 Dose: 25 mg Documented By: SAMMI Thiamine HCl 200 mg/ Sodium (Chloride) 102 mls @ 408 mls/hr IV NOW ONE Stop: 01/03/24 11:52 Last Infusion: 01/03/24 13:17 Dose: Infused Documented By: Admin: 01/03/24 12:26 Dose: 408 mls/hr Documented By: SAMMI Vital Signs Vital signs: Vital Signs - 8 hr 01/03/24 11:43 01/03/24 11:50 01/03/24 11:52 Temperature Pulse Rate 79 75 Respiratory Rate 28 H Blood Pressure 108/77 Pulse Oximetry 100 100 Oxygen Delivery Method 01/03/24 11:52 01/03/24 11:57 01/03/24 12:07 Temperature 97.7 F Pulse Rate 73 75 82 Respiratory Rate 29 H 18 24 Blood Pressure 108/77 Pulse Oximetry 100 99 100 Oxygen Delivery Method Room Air Room Air 01/03/24 12:08 01/03/24 12:08 01/03/24 12:25 Temperature Pulse Rate 82 Respiratory Rate 12 Blood Pressure 128/78 Pulse Oximetry 96 92 Oxygen Delivery Method 01/03/24 12:30 01/03/24 12:40 01/03/24 12:50 Temperature Pulse Rate 66 82 89 Respiratory Rate 13 36 H Blood Pressure Pulse Oximetry 100 97 Oxygen Delivery Method 01/03/24 12:57 01/03/24 12:57 01/03/24 13:00 Temperature Pulse Rate 78 76 Respiratory Rate 26 H 23 Blood Pressure 119/85 Pulse Oximetry 100 99 Oxygen Delivery Method 01/03/24 13:10 01/03/24 13:20 01/03/24 13:30 Temperature Pulse Rate 79 67 68 Respiratory Rate 21 15 21 Blood Pressure Pulse Oximetry 96 100 97 Oxygen Delivery Method 01/03/24 13:31 01/03/24 13:31 01/03/24 13:40 Temperature Pulse Rate 70 69 Respiratory Rate 24 18 Blood Pressure 99/69 Pulse Oximetry 96 95 Oxygen Delivery Method 01/03/24 13:50 01/03/24 14:00 01/03/24 14:10 Temperature Pulse Rate 68 67 66 Respiratory Rate 19 18 18 Blood Pressure Pulse Oximetry 94 93 95 Oxygen Delivery Method 01/03/24 14:20 Temperature Pulse Rate 66 Respiratory Rate 19 Blood Pressure Pulse Oximetry 96 Oxygen Delivery Method Medical Decision Making Lab Data Lab results reviewed: Yes I reviewed the patient's lab results. 01/03/24 11:48 01/03/24 11:48 Labs: Lab Results 01/03/24 01/03/24 01/03/24 Range/Units 11:48 13:10 13:10 WBC 6.9 (4.5-11.0) X10^3/uL RBC 3.24 L (4.0-5.2) X10^6/uL Hgb 7.9 L (12.0-16.0) g/dL Hct 24.8 L (36-46) % MCV 76.6 L (80-100) fL MCH 24.4 L (26-34) PG MCHC 31.9 (30-36) % RDW 21.5 H (11.6-14.8) % Plt Count 374 (150-400) X10^3/uL Neut % (Auto) 54.9 (50-75) % Lymph % (Auto) 34.9 (25-40) % [place] % (Auto) 7.3 (3-14) % Eos % (Auto) 2.1 (2-4) % Baso % (Auto) 0.8 (0-2) % Neut # (Auto) 3800 (6444-6143) /uL Lymph # (Auto) 2400 (2692-3082) /uL [place] # (Auto) 500 (0-900) /uL Eos # (Auto) 100 (0-450) /uL Baso # (Auto) 100 (0-100) /uL RBC Morphology See below Anisocytosis 1+ H Macrocytosis 1+ H PT 10.1 (9.4-12.5) SECONDS INR 0.9 (0.9-1.3) APTT 35 (25.1-36.5) SECONDS Sodium 143 (137-145) mmol/L Potassium 4.4 D (3.4-5.1) mmol/L Chloride 118 H (98-107) mmol/L Carbon Dioxide 19 L (22-32) mmol/L BUN 13 (7-17) mg/dL Creatinine 0.94 (0.52-1.04) mg/dL Estimated GFR > 60 (>60) mL/min BUN/Creatinine Ratio 13.8 (6-22) Glucose 73 (70-100) mg/dL Calcium 8.7 (8.4-10.2) mg/dL Total Bilirubin 0.6 (0.2-1.3) mg/dL AST 24 (14-36) IU/L ALT 13 (<35) IU/L Alkaline Phosphatase 136 H (38-126) U/L Ammonia < 9 L (9-30) umol/L Total Protein 5.5 L (6.3-8.2) g/dL Albumin 3.1 L (3.5-5.0) g/dL Globulin 2.4 (1.7-4.1) g/dL Albumin/Globulin Ratio 1.3 (1.0-2.8) Lipase 131 (23-300) U/L TSH 3.36 (0.47-4.68) uIU/mL Urine Color Yellow Urine Appearance Clear Urine pH 6.0 Normal (4.5-8.0) Ur Specific [place] <=1.005 (1.000-1.035) Urine Protein Negative (Negative) Urine Glucose (UA) Negative (Negative) g/dL Urine Ketones Negative (NEGATIVE) Urine Occult Blood Negative (Negative) Urine Nitrate Negative (Negative) Urine Bilirubin Negative (NEGATIVE) Urine Urobilinogen 0.2 (0.2) E.U./dL Ur Leukocyte Esterase Negative (NEGATIVE) Urine RBC None seen (0-5/HPF) Urine WBC None seen (0-5/HPF) Ur Squamous Epith Cells 1-5 /hpf (0-5/HPF) Urine Bacteria None seen (None) Ur Culture Indicated? Cult not indicated Vol Urine Centrifuged 10ml (spun) Salicylates < 1.0 (<20) mg/dL U Opiates 300ng/mL cut Negative (Negative) Ur Oxycodone Screen Negative (Negative) Urine Methadone Screen Negative (Negative) Acetaminophen < 10 (10-30) ug/mL Ur Barbiturates Screen Negative (Negative) U Tricyclic Antidepress Negative (Negative) Ur Phencyclidine Scrn Negative (Negative) Ur Amphetamines Screen Negative (Negative) U Methamphetamines Scrn Negative (Negative) Ur MDMA Scrn (Ecstasy) Negative (Negative) U Benzodiazepines Scrn Negative (Negative) Urine Cocaine Screen Negative (Negative) U Marijuana (THC) Screen Negative (Negative) Urine Specific [place] Normal (Normal) Ethyl Alcohol < 10 ( - 10) mg/dL Ur Creatinine Normal (Normal) Blood Type Antibody Screen 08/09/24 Range/Units 13:13 WBC (4.5-11.0) X10^3/uL RBC (4.0-5.2) X10^6/uL Hgb (12.0-16.0) g/dL Hct (36-46) % MCV (80-100) fL MCH (26-34) PG MCHC (30-36) % RDW (11.6-14.8) % Plt Count (150-400) X10^3/uL Neut % (Auto) (50-75) % Lymph % (Auto) (25-40) % [place] % (Auto) (3-14) % Eos % (Auto) (2-4) % Baso % (Auto) (0-2) % Neut # (Auto) (0401-9846) /uL Lymph # (Auto) (5514-9934) /uL [place] # (Auto) (0-900) /uL Eos # (Auto) (0-450) /uL Baso # (Auto) (0-100) /uL RBC Morphology Anisocytosis Macrocytosis PT (9.4-12.5) SECONDS INR (0.9-1.3) APTT (25.1-36.5) SECONDS Sodium (137-145) mmol/L Potassium (3.4-5.1) mmol/L Chloride (98-107) mmol/L Carbon Dioxide (22-32) mmol/L BUN (7-17) mg/dL Creatinine (0.52-1.04) mg/dL Estimated GFR (>60) mL/min BUN/Creatinine Ratio (6-22) Glucose (70-100) mg/dL Calcium (8.4-10.2) mg/dL Total Bilirubin (0.2-1.3) mg/dL AST (14-36) IU/L ALT (<35) IU/L Alkaline Phosphatase (38-126) U/L Ammonia (9-30) umol/L Total Protein (6.3-8.2) g/dL Albumin (3.5-5.0) g/dL Globulin (1.7-4.1) g/dL Albumin/Globulin Ratio (1.0-2.8) Lipase (23-300) U/L TSH (0.47-4.68) uIU/mL Urine Color Urine Appearance Urine pH (4.5-8.0) Ur Specific [place] (1.000-1.035) Urine Protein (Negative) Urine Glucose (UA) (Negative) g/dL Urine Ketones (NEGATIVE) Urine Occult Blood (Negative) Urine Nitrate (Negative) Urine Bilirubin (NEGATIVE) Urine Urobilinogen (0.2) E.U./dL Ur Leukocyte Esterase (NEGATIVE) Urine RBC (0-5/HPF) Urine WBC (0-5/HPF) Ur Squamous Epith Cells (0-5/HPF) Urine Bacteria (None) Ur Culture Indicated? Vol Urine Centrifuged Salicylates (<20) mg/dL U Opiates 300ng/mL cut (Negative) Ur Oxycodone Screen (Negative) Urine Methadone Screen (Negative) Acetaminophen (10-30) ug/mL Ur Barbiturates Screen (Negative) U Tricyclic Antidepress (Negative) Ur Phencyclidine Scrn (Negative) Ur Amphetamines Screen (Negative) U Methamphetamines Scrn (Negative) Ur MDMA Scrn (Ecstasy) (Negative) U Benzodiazepines Scrn (Negative) Urine Cocaine Screen (Negative) U Marijuana (THC) Screen (Negative) Urine Specific [place] (Normal) Ethyl Alcohol ( - 10) mg/dL Ur Creatinine (Normal) Blood Type A Positive Antibody Screen Negative Imaging Data CT scan - abdomen/pelvis: Radiologist's Impression: PROCEDURE: CT ABDOMEN PELVIS W CON INDICATIONS: generalized abd pain after fall last night TECHNIQUE: After the administration of intravenous contrast, axial sections acquired from the lung bases to the pubic symphysis. Coronal and sagittal reformats were performed. For radiation dose reduction, the following was used: automated exposure control, adjustment of mA and/or kV according to patient size. COMPARISON: Located Within [facility], CT, CT CHEST ABD PEL W CON, 08/11/2021, 12:47. Located Within [facility], CT, CT CERVICAL SPINE WO CON, 08/11/2021, 12:47. FINDINGS: Image quality: Motion degraded. Lower Chest: Mild patchy ground-glass opacities at the left lung base. ABDOMEN: Liver: No solid mass. Gallbladder: No radiopaque gallstones or wall thickening. Biliary ducts: No biliary dilation. Pancreas: No ductal dilation. Spleen: Size is within normal limits. Adrenal Glands: No adrenal nodules. Kidneys and Ureters: No hydronephrosis. No solid mass. No complex renal cystic lesion which requires follow up. Stomach and Bowel: Postoperative changes in the stomach, likely sleeve gastrectomy. Decompression versus wall thickening of the ascending and proximal transverse colon. Normal appendix. Peritoneum: No abnormal intraperitoneal fluid. No free air. Ventral Wall: No significant ventral hernia. Abdominal Nodes: No retroperitoneal or mesenteric adenopathy by size criteria. Vessels: Aorta and inferior vena cava are normal in size. PELVIS: Pelvic Organs: Unremarkable. Bladder: No bladder wall thickening, accounting for underdistention. Pelvic Nodes: No enlarged lymph nodes. Miscellaneous: No inguinal hernias are seen. Bones: No aggressive osseous abnormality. Severe central compression deformity of L3. Mild degenerative changes of the spine. IMPRESSION: 1. Patchy ground-glass opacities at the left lung base, concerning for pneumonia. 2. Possible wall thickening of the ascending and proximal transverse colon versus decompression. Findings may represent colitis. 3. Fracture of L3 vertebral body severe height loss centrally, increased compared to prior exams. rib X-ray: Radiologist's Impression: PROCEDURE: XR RIBS RT MIN 3V W CXR 1V INDICATIONS: R sided rib pain after fall TECHNIQUE: 2 views of the ribs were acquired, along with a single view chest. COMPARISON: None. FINDINGS: Surgical changes and devices: None. Bones and chest wall: No fractures or dislocations. No suspicious bony lesions. Overlying soft tissues appear unremarkable. Lungs and pleura: No pleural effusions or pneumothorax. Mild left lung base opacity. Mediastinum: Mediastinal contours appear normal. Heart size is normal. IMPRESSION: No displaced rib fracture or pneumothorax. Mild left lung base opacity. [facility] Narrative Medical decision making narrative: Patient is anemic but it is unchanged from when she was here just a few hours ago. She presents today very similar to what she did in June she was admitted to this facility for metabolic encephalopathy and eventually discharged home after suspicion of alcohol withdrawal. She was given Librium here in the ER. Afterwards she did calm down quite a bit. She was also found to be retaining urine. A Sampson catheter was placed. No signs of urinary tract infection. Her kidney function is unremarkable. She was afebrile. CT scans during this visit are unremarkable. Review of the medical record showed that her head CT from a prior visit is unremarkable. Her UDS is negative. She does have benzodiazepines on her medicine list. Some question of a benzodiazepine withdrawal as well. No other signs of trauma. Discussed the case with hospitalist on-call who will admit for further evaluation and treatment. Discharge Plan Departure Patient Disposition: Admitted as Observation Clinical Impression: Acute metabolic encephalopathy, Acute urinary retention, Anemia Admit Date/Time: 01/03/24 14:22 Admit Provider: Tom Moreno V
[2024-01-03 12:03] LABS: Add Manual Diff / Slide Review NO; Basophils Absolute Auto 100 /uL (0-100); Basophils Percent Auto 0.8 % (0-2); Eosinophils Absolute Auto 100 /uL (0-450); Eosinophils Percent Auto 2.1 % (2-4); Hematocrit 24.8 % (36-46); Hemoglobin 7.9 g/dL (12.0-16.0); Lymphocytes Absolute Auto 2400 /uL (1100-4500); Lymphocytes Percent Auto 34.9 % (25-40); Mean Corpuscular HGB Conc 31.9 % (30-36); Mean Corpuscular Hemoglobin 24.4 PG (26-34); Mean Corpuscular Volume 76.6 fL (80-100); Monocytes Absolute Auto 500 /uL (0-900); Monocytes Percent Auto 7.3 % (3-14); Neutrophils Absolute Auto 3800 /uL (1500-7000); Neutrophils Percent Auto 54.9 % (50-75); Platelet Count 374 X10^3/uL (150-400); Red Blood Cell Count 3.24 X10^6/uL (4.0-5.2); Red Cell Distribution Width 21.5 % (11.6-14.8); White Blood Cell Count 6.9 X10^3/uL (4.5-11.0)
[2024-01-03 12:06] LABS: INR 0.9 (0.9-1.3); Prothrombin Time 10.1 SECONDS (9.4-12.5)
[2024-01-03 12:08] LABS: PTT Partial Thromboplastin Tim 35 SECONDS (25.1-36.5)
[2024-01-03 12:09] LABS: Ammonia (NH3) < 9 umol/L (9-30)
[2024-01-03 12:10] LABS: Alanine Aminotransferase 13 IU/L (<35); Albumin 3.1 g/dL (3.5-5.0); Albumin Globulin Ratio 1.3 (1.0-2.8); Alkaline Phosphatase 136 U/L (38-126); Aspartate Aminotransferase 24 IU/L (14-36); BUN Creatinine Ratio 13.8 (6-22); Bilirubin Total 0.6 mg/dL (0.2-1.3); Blood Urea Nitrogen 13 mg/dL (7-17); Calcium 8.7 mg/dL (8.4-10.2); Carbon Dioxide 19 mmol/L (22-32); Chloride 118 mmol/L (98-107); Estimated Glomerular Filt Rate > 60 mL/min (>60); Ethanol (ETOH) < 10 mg/dL; Globulin 2.4 g/dL (1.7-4.1); Glucose 73 mg/dL (70-100); HEMOLYSIS < 15 (0-50); Lipase 131 U/L (23-300); Potassium 4.4 mmol/L (3.4-5.1); Sodium 143 mmol/L (137-145); Total Protein 5.5 g/dL (6.3-8.2)
[2024-01-03 12:25] LABS: Acetaminophen < 10 ug/mL (10-30); Salicylate < 1.0 mg/dL (<20)
[2024-01-03] MEDS: THIAMINE 200 MG in SODIUM CHLORIDE 0.9% 100 ML 408 MG IV (12:26)
[2024-01-03] MEDS: chlordiazePOXIDE 25 MG CAPSULE PO ×2 (12:26→17:46)
[2024-01-03] MEDS: SODIUM CHLORIDE 0.9% 1,000 ML 125 ML IV ×2 (12:30→22:29)
[2024-01-03 12:36] LABS: Anisocytosis 1+; Macrocytosis 1+
[2024-01-03 12:56] LABS: Thyroid Stimulating Hormone 3.36 uIU/mL (0.47-4.68)
[2024-01-03 13:27] LABS: Appearance Urine UA CLEAR; Bilirubin Urine UA NEGATIVE (NEGATIVE); Color Urine UA YELLOW; Glucose Urine UA NEGATIVE (Negative); Ketones Urine UA NEGATIVE (NEGATIVE); Leukocyte Esterase Urine UA NEGATIVE (NEGATIVE); Nitrite Urine UA NEGATIVE (Negative); Occult Blood Urine UA NEGATIVE (Negative); Protein Urine UA NEGATIVE (Negative); Specific Gravity Urine UA <=1.005 (1.000-1.035); Urobilinogen Urine UA 0.2 E.U./dL (0.2)
[2024-01-03 13:31] LABS: Ur Creatinine Normal (Normal); Ur Specific Gravity Normal (Normal); Urine Amphetamines Negative (Negative); Urine Barbiturates Negative (Negative); Urine Benzodiazepines Negative (Negative); Urine Cocaine Negative (Negative); Urine MDMA Negative (Negative); Urine Methadone Negative (Negative); Urine Methamphetamines Negative (Negative); Urine Opiates Negative (Negative); Urine Oxycodone Negative (Negative); Urine Phencyclidine Negative (Negative); Urine THC Negative (Negative); Urine Tricyclic Antidepressant Negative (Negative); Urine pH Normal (Normal)
[2024-01-03 13:34] LABS: Bacteria Urine None Seen; Culture Indicated Urine Cult Not Indicated; RBC Urine None Seen (0-5/HPF); Squamous Epithelial Cell Urine 1-5 /HPF (0-5/HPF); Urine Volume 10mL (spun); WBC Urine None Seen (0-5/HPF)
--- NOTE | 2024-01-03 15:06 | PM.HP.1 ---
History of Present Illness History of Present Illness Date Patient Seen: 01/03/24 Time Patient Seen: 15:25 Date of Onset of Symptoms: 01/03/24 Chief complaint: Abd Pain Narrative: Per ER record: HPI narrative: Patient is a 53-year-old female. History of alcohol abuse, alcohol withdrawal, Yamini's thyroiditis, issues with metabolic encephalopathy, generalized anxiety disorder, depression, IBS who is here for evaluation of right-sided rib pain, abdominal pain, shaking and generally not feeling very well. She was here in the emergency department last evening with her mother where she sustained a fall in the exam room. She was then checked into the emergency department. Was evaluated. Had CT scans of head and neck which were unremarkable. Was found to be somewhat anemic however was subsequently discharged home. She returns today pale, shaking. She was alert and oriented and is answering some questions but does seem to be slow at answering questions. Difficult for her to exactly describe where she was having discomfort she was points to the right side of her chest. She describes this as ?rib pain. Initially she did describe abdominal pain but later on stated that her abdomen was not hurting. Unsure when her last drink was. She had generalized shaking. According to the medical record she presented very similarly earlier this year and improved after an overnight hospital stay and it appears that it was associated with alcohol withdrawal. Medical decision making narrative: Patient is anemic but it is unchanged from when she was here just a few hours ago. She presents today very similar to what she did in June she was admitted to this facility for metabolic encephalopathy and eventually discharged home after suspicion of alcohol withdrawal. She was given Librium here in the ER. Afterwards she did calm down quite a bit. She was also found to be retaining urine. A Sampson catheter was placed. No signs of urinary tract infection. Her kidney function is unremarkable. She was afebrile. CT scans during this visit are unremarkable. Review of the medical record showed that her head CT from a prior visit is unremarkable. Her UDS is negative. She does have benzodiazepines on her medicine list. Some question of a benzodiazepine withdrawal as well. No other signs of trauma. Discussed the case with hospitalist on-call who will admit for further evaluation and treatment. The patient is seen in the ER and appears tremulous on interview, stating 8/10 right-sided rib pain since falling yesterday. She appears mildly confused but reportedly calmer than when she initially presented per ER staff and was given a dose of Librium. She denies nausea, vomiting, diarrhea, abdominal pain, shortness of breath or bleeding symptoms. She states she has not had alcohol recently. FOR[facility]LY [facility], LATER [facility] Medical History Neuropathy Chronic venous insufficiency Obstructive sleep apnea (Unknown) GERD (gastroesophageal reflux disease) (Unknown) Allergy (Unknown) Restless leg syndrome (2014) Anxiety (1989) Shoulder pain (Unknown) Foot pain (2003) Chronic back pain (Unknown) Vertigo (1979) Painful menstrual periods (Unknown) Heavy menses (Unknown) IBS (irritable bowel syndrome) (1985) Surgical History 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) Hx of sinus surgery (2011) History of removal of laparoscopic gastric banding device (2014) Hx of laparoscopic gastric banding (2011) Family History Grandmother Cancer Mental health problem Mother Age: 75 Mental health disorder Sister Age: 57 Heart disease Hypertension High cholesterol Mental health problem Asthma COPD (chronic obstructive pulmonary disease) Social History household members: spouse and family Smoking Status: Current every day smoker Tobacco: How many years used: 10 second hand exposure: No alcohol intake: current substance use type: does not use Meds Home Medications and Allergies Home Medications Medication Instructions Recorded Confirmed Type albuterol sulfate 90 mcg/actuation 2 puff inhalation Q4H PRN 12/30/17 07/09/23 Rx breath activated powder inhaler shortness of breath or wheezing #1 ea baclofen 20 mg tablet 20 mg PO TID PRN Muscle Spasm 7 08/14/21 07/09/23 Rx days #20 tabs cholecalciferol (vitamin D3) 50 50 mcg PO DAILY 12/26/21 07/09/23 History mcg (2,000 unit) capsule hydrochlorothiazide 25 mg tablet 25 mg PO DAILY PRN swelling 12/26/21 07/09/23 History naproxen sodium 220 mg capsule 220 mg PO BID PRN Pain, Mild 12/26/21 07/09/23 History progesterone micronized 100 mg 100 mg PO QAM #30 caps 09/07/22 07/09/23 Rx capsule (Prometrium) escitalopram oxalate 20 mg tablet 20 mg PO DAILY #90 tabs 05/13/23 07/09/23 Rx clonazepam 0.5 mg tablet 0.5 mg PO BID PRN Anxiety #60 tabs 07/08/23 07/09/23 Rx celecoxib 100 mg capsule (Celebrex) 100 mg PO DAILY PRN Pain (Scale 07/09/23 07/09/23 History Score 1-3) dicyclomine 10 mg capsule 10 mg PO 4XD PRN IBS 07/09/23 07/09/23 History estradiol 0.5 mg tablet 0.5 mg PO DAILY 07/09/23 07/09/23 History fluticasone 250 mcg-salmeterol 50 1 ea inhalation BID 07/09/23 07/09/23 History mcg/dose blistr powdr for inhalation hydroxyzine HCl 50 mg tablet 50 mg PO BID PRN Anxiety 07/09/23 07/09/23 History levothyroxine 75 mcg tablet 75 mcg PO DAILY 07/09/23 07/09/23 History ondansetron HCl 8 mg tablet 8 mg PO DAILY PRN Nausea And 07/09/23 07/09/23 History Vomiting bupropion HCl 150 mg 24 hr tablet, 300 mg (2 x 150 mg) PO QAM #60 tabs 08/09/23 Rx extended release propranolol 20 mg tablet 20 mg PO TID PRN Anxiety #90 tabs 08/09/23 Rx clonazepam 0.5 mg tablet 0.5 mg PO BID Anxiety #12 tabs 08/15/23 Rx Allergies Allergy/AdvReac Type Severity Reaction Status Date / Time No Known Drug Allergies Allergy Verified 09/13/22 13:48 Review of Systems Review of Systems ROS: Yes All systems reviewed with the patient and are negative except as otherwise documented Exam Vital Signs (past 8 hours): - 01/03/24 11:43 01/03/24 11:50 01/03/24 11:52 Temperature Pulse Rate 79 75 Respiratory Rate 28 H Blood Pressure 108/77 Pulse Oximetry 100 100 Oxygen Delivery Method 01/03/24 11:52 01/03/24 11:57 01/03/24 12:07 Temperature 97.7 F Pulse Rate 73 75 82 Respiratory Rate 29 H 18 24 Blood Pressure 108/77 Pulse Oximetry 100 99 100 Oxygen Delivery Method Room Air Room Air 01/03/24 12:08 01/03/24 12:08 01/03/24 12:25 Temperature Pulse Rate 82 Respiratory Rate 12 Blood Pressure 128/78 Pulse Oximetry 96 92 Oxygen Delivery Method 01/03/24 12:30 01/03/24 12:40 01/03/24 12:50 Temperature Pulse Rate 66 82 89 Respiratory Rate 13 36 H Blood Pressure Pulse Oximetry 100 97 Oxygen Delivery Method 01/03/24 12:57 01/03/24 12:57 01/03/24 13:00 Temperature Pulse Rate 78 76 Respiratory Rate 26 H 23 Blood Pressure 119/85 Pulse Oximetry 100 99 Oxygen Delivery Method 01/03/24 13:10 01/03/24 13:20 01/03/24 13:30 Temperature Pulse Rate 79 67 68 Respiratory Rate 21 15 21 Blood Pressure Pulse Oximetry 96 100 97 Oxygen Delivery Method 01/03/24 13:31 01/03/24 13:31 01/03/24 13:40 Temperature Pulse Rate 70 69 Respiratory Rate 24 18 Blood Pressure 99/69 Pulse Oximetry 96 95 Oxygen Delivery Method 01/03/24 13:50 01/03/24 14:00 01/03/24 14:10 Temperature Pulse Rate 68 67 66 Respiratory Rate 19 18 18 Blood Pressure Pulse Oximetry 94 93 95 Oxygen Delivery Method 01/03/24 14:20 Temperature Pulse Rate 66 Respiratory Rate 19 Blood Pressure Pulse Oximetry 96 Oxygen Delivery Method Oxygen Delivery Method Room Air Narrative Exam Narrative: GENERAL: This is a tremulous, mildly confused female patient, appears anxious. HEAD: Atraumatic. Normocephalic. No temporal or scalp tenderness. EYES: Pupils equal round and reactive. Extraocular motions intact. No scleral icterus. No injection or drainage. ENT: Mucous membranes pink and moist. NECK: Trachea midline. No JVD, bruits or lymphadenopathy. Supple, nontender, no meningeal signs. CARDIOVASCULAR: Regular rate and rhythm without murmurs, gallops, or rubs. RESPIRATORY: Clear to auscultation. CHEST: Right-sided rib tenderness without ecchymosis, deformity or skin lesions. GASTROINTESTINAL: Abdomen soft, non-tender, nondistended. EXTREMITIES: No clubbing, cyanosis, or edema. BACK: Nontender without deformity or crepitance. No flank tenderness. NEUROLOGIC: Alert, oriented, speech fluent, full upper and lower motor strength, no focal deficits evident. DERMATOLOGIC: No rashes or skin lesions. Objective ECG Impression: Normal sinus rhythm at 75 beats per minute, Q-waves in leads V1 V2 consistent with septal infarct, no acute ischemic changes Imaging Cervical spine CT 01/02/2024:: Radiologist's impression: Negative for acute fracture. Stable remote T1 anterior wedge deformity. Chest x-ray 01/02/2024: : Radiologist's impression: Limited portable chest examination, without a significant cardiopulmonary abnormality identified. Head CT 01/02/2024:: Radiologist's impression: No acute intracranial pathology. Abdomen pelvis CT 01/03/2024:: Radiologist's impression: 1. Patchy ground-glass opacities at the left lung base, concerning for pneumonia. 2. Possible wall thickening of the ascending and proximal transverse colon versus decompression. Findings may represent colitis. 3. Fracture of L3 vertebral body severe height loss centrally, increased compared to prior exams. Rib x-ray 01/03/2024: : Radiologist's impression: No displaced rib fracture or pneumothorax. Mild left lung base opacity. Labs 01/03/24 11:48 01/03/24 11:48 Labs: Laboratory Results - last 24 hr 01/03/24 01/03/24 01/03/24 11:48 13:10 13:10 WBC 6.9 RBC 3.24 L Hgb 7.9 L Hct 24.8 L MCV 76.6 L MCH 24.4 L MCHC 31.9 RDW 21.5 H Plt Count 374 Neut % (Auto) 54.9 Lymph % (Auto) 34.9 [place] % (Auto) 7.3 Eos % (Auto) 2.1 Baso % (Auto) 0.8 Neut # (Auto) 3800 Lymph # (Auto) 2400 [place] # (Auto) 500 Eos # (Auto) 100 Baso # (Auto) 100 RBC Morphology See below Anisocytosis 1+ H Macrocytosis 1+ H PT 10.1 INR 0.9 APTT 35 Sodium 143 Potassium 4.4 D Chloride 118 H Carbon Dioxide 19 L BUN 13 Creatinine 0.94 Estimated GFR > 60 BUN/Creatinine Ratio 13.8 Glucose 73 Calcium 8.7 Total Bilirubin 0.6 AST 24 ALT 13 Alkaline Phosphatase 136 H Ammonia < 9 L Total Protein 5.5 L Albumin 3.1 L Globulin 2.4 Albumin/Globulin Ratio 1.3 Lipase 131 TSH 3.36 Urine Color Yellow Urine Appearance Clear Urine pH 6.0 Normal Ur Specific Burns <=1.005 Urine Protein Negative Urine Glucose (UA) Negative Urine Ketones Negative Urine Occult Blood Negative Urine Nitrate Negative Urine Bilirubin Negative Urine Urobilinogen 0.2 Ur Leukocyte Esterase Negative Urine RBC None seen Urine WBC None seen Ur Squamous Epith Cells 1-5 /hpf Urine Bacteria None seen Ur Culture Indicated? Cult not indicated Vol Urine Centrifuged 10ml (spun) Salicylates < 1.0 U Opiates 300ng/mL cut Negative Ur Oxycodone Screen Negative Urine Methadone Screen Negative Acetaminophen < 10 Ur Barbiturates Screen Negative U Tricyclic Antidepress Negative Ur Phencyclidine Scrn Negative Ur Amphetamines Screen Negative U Methamphetamines Scrn Negative Ur MDMA Scrn (Ecstasy) Negative U Benzodiazepines Scrn Negative Urine Cocaine Screen Negative U Marijuana (THC) Screen Negative Urine Specific Burns Normal Ethyl Alcohol < 10 Ur Creatinine Normal Blood Type Antibody Screen 01/03/24 13:13 WBC RBC Hgb Hct MCV MCH MCHC RDW Plt Count Neut % (Auto) Lymph % (Auto) [place] % (Auto) Eos % (Auto) Baso % (Auto) Neut # (Auto) Lymph # (Auto) [place] # (Auto) Eos # (Auto) Baso # (Auto) RBC Morphology Anisocytosis Macrocytosis PT INR APTT Sodium Potassium Chloride Carbon Dioxide BUN Creatinine Estimated GFR BUN/Creatinine Ratio Glucose Calcium Total Bilirubin AST ALT Alkaline Phosphatase Ammonia Total Protein Albumin Globulin Albumin/Globulin Ratio Lipase TSH Urine Color Urine Appearance Urine pH Ur Specific Burns Urine Protein Urine Glucose (UA) Urine Ketones Urine Occult Blood Urine Nitrate Urine Bilirubin Urine Urobilinogen Ur Leukocyte Esterase Urine RBC Urine WBC Ur Squamous Epith Cells Urine Bacteria Ur Culture Indicated? Vol Urine Centrifuged Salicylates U Opiates 300ng/mL cut Ur Oxycodone Screen Urine Methadone Screen Acetaminophen Ur Barbiturates Screen U Tricyclic Antidepress Ur Phencyclidine Scrn Ur Amphetamines Screen U Methamphetamines Scrn Ur MDMA Scrn (Ecstasy) U Benzodiazepines Scrn Urine Cocaine Screen U Marijuana (THC) Screen Urine Specific Burns Ethyl Alcohol Ur Creatinine Blood Type A Positive Antibody Screen Negative Assessment & Plan Assessment & Plan narrative: 1. Altered mental status. Etiology unclear. Extensive imaging and laboratory evaluation is unrevealing. She appears to have symptoms consistent with a withdrawal syndrome. She denies recent alcohol use. She is on chronic benzodiazepine therapy. Will continue with Librium taper as this was effective on her recent presentation. 2. Severe alcohol use disorder, with negative alcohol on admission. Monitor for evidence of withdrawal. 3. Chronic anxiety with panic attacks. Continue routine therapy. 4. Right-sided rib contusions. Symptomatic care with analgesics. Avoid opiates. 5. Urinary retention. Continue Samposn catheterization. Discontinue in morning and monitor. 6. Anemia. Etiology unclear, suspect chronic blood loss. No active bleeding evident. Check stool guaiacs. Monitor. Outpatient workup advised. 7. Code status: Full code. Reviewed on admission. Plan: -admit to observation -Librium as needed for withdrawal symptoms -stool hemoccults -monitor anemia -possible discharge home tomorrow if stable Time-Based Coding :: [TOTAL MINUTES] spent with patient and on the chart (including review of chart, obtaining history, exam, reviewing outside data, placing orders, documenting exam and treatment plan, and counseling patient) on [DATE]. Quality MIPS - Admit I confirm the patient?s Advance Care Plan is present, Code status is documented, Surrogate decision maker is in patient?s record [If Yes, STOP here]: Yes MIPS - Meds 'Current medications' to include all prescriptions, [id number] products, herbals, cannabis/cannabidiol products, and vitamin/mineral/dietary (nutritional) supplements. I have utilized all available resources to obtain, update, or review the patient?s current medications. [If Yes, STOP here]: Yes PROFEE Charge Codes Initial inpatient/observation care: [id number]
[2024-01-03] MEDS: BACLOFEN 10 MG TABLET 20 MG PO (17:46)
[2024-01-03] MEDS: KETOROLAC 30 MG/ML VIAL 15 MG IV (21:23)
[2024-01-03] MEDS: hydrOXYzine HCL 25 MG TABLET 50 MG PO (21:24)
[2024-01-04] VITALS (9 sets, daily range): BP systolic 101–121; BP diastolic 63–77; PULSE 63–88; RESP 17–20; TEMP 35.9–36.8; O2SAT 94–100
[2024-01-04] MEDS: BACLOFEN 10 MG TABLET 20 MG PO ×2 (03:01→15:26)
[2024-01-04] MEDS: KETOROLAC 30 MG/ML VIAL 15 MG IV (03:02)
[2024-01-04 05:01] LABS: Add Manual Diff / Slide Review NO; Basophils Absolute Auto 100 /uL (0-100); Eosinophils Absolute Auto 100 /uL (0-450); Eosinophils Percent Auto 1.2 % (2-4); Hemoglobin 6.3 g/dL (12.0-16.0); Lymphocytes Absolute Auto 1900 /uL (1100-4500); Lymphocytes Percent Auto 34.4 % (25-40); Mean Corpuscular HGB Conc 31.5 % (30-36); Mean Corpuscular Hemoglobin 24.4 PG (26-34); Mean Corpuscular Volume 77.3 fL (80-100); Monocytes Absolute Auto 400 /uL (0-900); Monocytes Percent Auto 7.1 % (3-14); Neutrophils Absolute Auto 3100 /uL (1500-7000); Neutrophils Percent Auto 56.3 % (50-75); Platelet Count 278 X10^3/uL (150-400); Red Blood Cell Count 2.61 X10^6/uL (4.0-5.2); Red Cell Distribution Width 21.6 % (11.6-14.8)
[2024-01-04 05:02] LABS: BUN Creatinine Ratio 13.4 (6-22); Blood Urea Nitrogen 13 mg/dL (7-17); Calcium 7.8 mg/dL (8.4-10.2); Carbon Dioxide 19 mmol/L (22-32); Chloride 119 mmol/L (98-107); Estimated Glomerular Filt Rate > 60 mL/min (>60); Glucose 84 mg/dL (70-100); Sodium 140 mmol/L (137-145)
[2024-01-04 05:12] LABS: Hematocrit 20.1 % (36-46); White Blood Cell Count 5.6 X10^3/uL (4.5-11.0)
[2024-01-04 05:16] LABS: HEMOLYSIS 55 (0-50)
[2024-01-04] MEDS: LEVOTHYROXINE 75 MCG TABLET PO (05:34)
[2024-01-04 05:47] LABS: Iron 61 ug/dL (37-170)
[2024-01-04 05:48] LABS: HEMOLYSIS 53 (0-50)
[2024-01-04 05:58] LABS: Percent Iron Saturation 37 % (15-50); Total Iron Binding Capacity 165 ug/dL (265-497); Transferrin 127 mg/dL (206-381)
--- NOTE | 2024-01-04 06:08 | PC.NURSE ---
Called Dr. Guerrero Rudd & talked to him. Orders received to stop Toradol & IVF of NS 125 cc/hr. Repeat H&H stat, lab already here to rechecked H&H. Will monitor patient denied any chest pain, dizziness & other discomfort.
[2024-01-04 06:09] LABS: Ferritin 235 ng/mL (11-264)
[2024-01-04 06:25] LABS: Mean Corpuscular HGB Conc 31.6 % (30-36); Mean Corpuscular Hemoglobin 24.4 PG (26-34); Mean Corpuscular Volume 77.1 fL (80-100); Platelet Count 294 X10^3/uL (150-400); Red Blood Cell Count 2.62 X10^6/uL (4.0-5.2); Red Cell Distribution Width 21.5 % (11.6-14.8); White Blood Cell Count 5.4 X10^3/uL (4.5-11.0)
[2024-01-04 06:27] LABS: Hemoglobin 6.4 g/dL (12.0-16.0)
[2024-01-04 06:28] LABS: Hematocrit 20.2 % (36-46)
--- NOTE | 2024-01-04 07:28 | PC.NURSE ---
1st unit of PRBC initiated @ 0705, 15 minutes VSS no sign & symptoms of any reaction @ this time. Report given to Michelle ODEN.
[2024-01-04] MEDS: hydrOXYzine HCL 25 MG TABLET 50 MG PO (08:01)
[2024-01-04] MEDS: ESCITALOPRAM 10 MG TABLET 20 MG PO (08:14)
[2024-01-04] MEDS: THIAMINE 100 MG TABLET PO (08:14)
[2024-01-04] MEDS: MULTIVITAMIN 1 TABLET 1 TAB PO (08:14)
[2024-01-04] MEDS: buPROPion XL 150 MG TAB 300 MG PO (08:14)
[2024-01-04] MEDS: FOLIC ACID 1 MG TABLET PO (08:14)
[2024-01-04] MEDS: PANTOPRAZOLE 40 MG VIAL IV ×3 (08:14→09:34)
--- NOTE | 2024-01-04 08:24 | P.PN_ITS ---
Subjective Subjective Date Patient Seen: 01/04/24 Time Patient Seen: 08:10 Interval history: Summary: The patient is seen in the ER and appears tremulous on interview, stating 8/10 right-sided rib pain since falling yesterday. She appears mildly confused but reportedly calmer than when she initially presented per ER staff and was given a dose of Librium. She denies nausea, vomiting, diarrhea, abdominal pain, shortness of breath or bleeding symptoms. She states she has not had alcohol recently. Interval history: The patient had a hematocrit of 20% this morning. 1 unit of packed red blood cells was ordered. She admits to taking naproxen over the counter regularly. She denies hematemesis, melena or hematochezia, abdominal pain or apparent bleeding symptoms otherwise. She states she wants to eat this morning. When advised on NPO status, and that if she has significant bleeding endoscopy would not be possible, she states ?I do not care?. She appears persistently tremulous and shaky but alert, and appropriate and reports full understanding of her medical situation. Exam Vital Signs (past 8 hours): - 01/04/24 01:00 01/04/24 04:37 01/04/24 07:03 Temperature 96.6 F L 98.0 F 97.2 F L Pulse Rate 87 74 63 Respiratory Rate 18 18 18 Blood Pressure 110/66 120/77 117/63 Pulse Oximetry 98 96 94 Oxygen Flow Rate 0 0 0 01/04/24 07:08 01/04/24 07:17 01/04/24 07:18 Temperature 97.2 F L 97.3 F L 98.0 F Pulse Rate 81 84 79 Respiratory Rate 20 18 18 Blood Pressure 117/63 121/69 121/69 Pulse Oximetry 100 Oxygen Flow Rate 0 Oxygen Delivery Method Room Air Oxygen Flow Rate 0 Narrative Exam Narrative: GENERAL: This is a mildly tremulous, alert and oriented female patient, appears mildly anxious. EYES: Pupils equal round and reactive. Extraocular motions intact. No scleral icterus. No injection or drainage. ENT: Mucous membranes pink and moist. NECK: Trachea midline. No JVD, bruits or lymphadenopathy. Supple, nontender, no meningeal signs. CARDIOVASCULAR: Regular rate and rhythm without murmurs, gallops, or rubs. RESPIRATORY: Clear to auscultation. CHEST: Right-sided rib tenderness without ecchymosis, deformity or skin lesions. GASTROINTESTINAL: Abdomen soft, non-tender, nondistended. EXTREMITIES: No clubbing, cyanosis, or edema. NEUROLOGIC: Alert, oriented, speech fluent, full upper and lower motor strength, no focal deficits evident. DERMATOLOGIC: No rashes or skin lesions. Objective Labs 01/04/24 06:15 01/04/24 04:18 Labs: Laboratory Results - last 24 hr 01/03/24 01/03/24 01/03/24 11:48 13:10 13:10 WBC 6.9 RBC 3.24 L Hgb 7.9 L Hct 24.8 L MCV 76.6 L MCH 24.4 L MCHC 31.9 RDW 21.5 H Plt Count 374 Neut % (Auto) 54.9 Lymph % (Auto) 34.9 Yell % (Auto) 7.3 Eos % (Auto) 2.1 Baso % (Auto) 0.8 Neut # (Auto) 3800 Lymph # (Auto) 2400 Yell # (Auto) 500 Eos # (Auto) 100 Baso # (Auto) 100 Nucleated RBCs Hypersegmented Neuts Hypogranular Neuts Reactive Lymphocytes Smudge Cells Other Cell Type Toxic Granulation Toxic Vacuolation Dohle Bodies Malcolm Rods WBC Morphology Comment Platelet Estimate Clumped Platelets Plt Morphology Comment RBC Morphology See below Dimorphic RBCs Polychromasia Hypochromasia Poikilocytosis Basophilic Stippling Anisocytosis 1+ H Microcytosis Macrocytosis 1+ H Spherocytes Pappenheimer Bodies Sickle Cells Target Cells Tear Drop Cells Ovalocytes Stomatocytes Helmet Cells [place] Bodies [place] Rings Stephen Cells Acanthocytes (Spur) Rouleaux Schistocytes PT 10.1 INR 0.9 APTT 35 Sodium 143 Potassium 4.4 D Chloride 118 H Carbon Dioxide 19 L BUN 13 Creatinine 0.94 Estimated GFR > 60 BUN/Creatinine Ratio 13.8 Glucose 73 Calcium 8.7 Iron TIBC % Saturation Transferrin Ferritin Total Bilirubin 0.6 AST 24 ALT 13 Alkaline Phosphatase 136 H Ammonia < 9 L Total Protein 5.5 L Albumin 3.1 L Globulin 2.4 Albumin/Globulin Ratio 1.3 Lipase 131 TSH 3.36 Urine Color Yellow Urine Appearance Clear Urine pH 6.0 Normal Ur Specific [place] <=1.005 Urine Protein Negative Urine Glucose (UA) Negative Urine Ketones Negative Urine Occult Blood Negative Urine Nitrate Negative Urine Bilirubin Negative Urine Urobilinogen 0.2 Ur Leukocyte Esterase Negative Urine RBC None seen Urine WBC None seen Ur Squamous Epith Cells 1-5 /hpf Urine Bacteria None seen Ur Culture Indicated? Cult not indicated Vol Urine Centrifuged 10ml (spun) Salicylates < 1.0 U Opiates 300ng/mL cut Negative Ur Oxycodone Screen Negative Urine Methadone Screen Negative Acetaminophen < 10 Ur Barbiturates Screen Negative U Tricyclic Antidepress Negative Ur Phencyclidine Scrn Negative Ur Amphetamines Screen Negative U Methamphetamines Scrn Negative Ur MDMA Scrn (Ecstasy) Negative U Benzodiazepines Scrn Negative Urine Cocaine Screen Negative U Marijuana (THC) Screen Negative Urine Specific [place] Normal Ethyl Alcohol < 10 Ur Creatinine Normal Blood Type Antibody Screen Crossmatch 01/03/24 01/04/24 01/04/24 13:13 04:18 06:15 WBC 5.6 5.4 RBC 2.61 L 2.62 L Hgb 6.3 L* 6.4 L* Hct 20.1 L* 20.2 L* MCV 77.3 L 77.1 L MCH 24.4 L 24.4 L MCHC 31.5 31.6 RDW 21.6 H 21.5 H Plt Count 278 294 Neut % (Auto) 56.3 Lymph % (Auto) 34.4 Yell % (Auto) 7.1 Eos % (Auto) 1.2 L Baso % (Auto) 1.0 Neut # (Auto) 3100 Lymph # (Auto) 1900 Yell # (Auto) 400 Eos # (Auto) 100 Baso # (Auto) 100 Nucleated RBCs Cancelled Hypersegmented Neuts Cancelled Hypogranular Neuts Cancelled Reactive Lymphocytes Cancelled Smudge Cells Cancelled Other Cell Type Cancelled Toxic Granulation Cancelled Toxic Vacuolation Cancelled Dohle Bodies Cancelled Malcolm Rods Cancelled WBC Morphology Comment Cancelled Platelet Estimate Cancelled Clumped Platelets Cancelled Plt Morphology Comment Cancelled RBC Morphology Cancelled Dimorphic RBCs Cancelled Polychromasia Cancelled Hypochromasia Cancelled Poikilocytosis Cancelled Basophilic Stippling Cancelled Anisocytosis Cancelled Microcytosis Cancelled Macrocytosis Cancelled Spherocytes Cancelled Pappenheimer Bodies Cancelled Sickle Cells Cancelled Target Cells Cancelled Tear Drop Cells Cancelled Ovalocytes Cancelled Stomatocytes Cancelled Helmet Cells Cancelled [place] Bodies Cancelled [place] Rings Cancelled [place] Cells Cancelled Acanthocytes (Spur) Cancelled Rouleaux Cancelled Schistocytes Cancelled PT INR APTT Sodium 140 Potassium 4.0 Chloride 119 H Carbon Dioxide 19 L BUN 13 Creatinine 0.97 Estimated GFR > 60 BUN/Creatinine Ratio 13.4 Glucose 84 Calcium 7.8 L Iron 61 TIBC 165 L % Saturation 37 Transferrin 127 L Ferritin 235 Total Bilirubin AST ALT Alkaline Phosphatase Ammonia Total Protein Albumin Globulin Albumin/Globulin Ratio Lipase TSH Urine Color Urine Appearance Urine pH Ur Specific [place] Urine Protein Urine Glucose (UA) Urine Ketones Urine Occult Blood Urine Nitrate Urine Bilirubin Urine Urobilinogen Ur Leukocyte Esterase Urine RBC Urine WBC Ur Squamous Epith Cells Urine Bacteria Ur Culture Indicated? Vol Urine Centrifuged Salicylates U Opiates 300ng/mL cut Ur Oxycodone Screen Urine Methadone Screen Acetaminophen Ur Barbiturates Screen U Tricyclic Antidepress Ur Phencyclidine Scrn Ur Amphetamines Screen U Methamphetamines Scrn Ur MDMA Scrn (Ecstasy) U Benzodiazepines Scrn Urine Cocaine Screen U Marijuana (THC) Screen Urine Specific [place] Ethyl Alcohol Ur Creatinine Blood Type A Positive Antibody Screen Negative Crossmatch See Detail [facility] Medical History Neuropathy Chronic venous insufficiency Obstructive sleep apnea (Unknown) GERD (gastroesophageal reflux disease) (Unknown) Allergy (Unknown) Restless leg syndrome (2014) Anxiety (1989) Shoulder pain (Unknown) Foot pain (2003) Chronic back pain (Unknown) Vertigo (1979) Painful menstrual periods (Unknown) Heavy menses (Unknown) IBS (irritable bowel syndrome) (1985) Surgical History 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) Hx of sinus surgery (2011) History of removal of laparoscopic gastric banding device (2014) Hx of laparoscopic gastric banding (2011) Family History Grandmother Cancer Mental health problem Mother Age: 75 Mental health disorder Sister Age: 57 Heart disease Hypertension High cholesterol Mental health problem Asthma COPD (chronic obstructive pulmonary disease) Social History household members: spouse and family Smoking Status: Current every day smoker Tobacco: How many years used: 10 second hand exposure: No alcohol intake: current substance use type: does not use Assessment & Plan Assessment & Plan narrative: 1. Altered mental status. Etiology unclear but improved this morning. Extensive imaging and laboratory evaluation on admission was unrevealing. She appears to have symptoms consistent with a withdrawal syndrome. She denies recent alcohol use. She is on chronic benzodiazepine therapy. Will continue with Librium taper as this was effective on her recent presentation. 2. Severe alcohol use disorder, with negative alcohol on admission. Monitor for evidence of withdrawal. 3. Chronic anxiety with panic attacks. Continue routine therapy. 4. Right-sided rib contusions. Symptomatic care with analgesics. Avoid opiates. 5. Urinary retention. Continue Sampson catheterization. Discontinue in morning and monitor. 6. Anemia, likely due to NSAID induced peptic ulcer disease. Etiology likely chronic naproxen therapy, suspect acute on chronic blood loss. No active bleeding evident. Monitor stool guaiacs, though no stool since admission. Start IV pantoprazole 40 mg twice daily on 01/04/2024, and consider endoscopy. She understands the endoscopic risks of continuing to eat, should endoscopies to be necessary but is insistent on eating. 7. Code status: Full code. Reviewed on admission. Plan: -admit to inpatient status -Librium as needed for withdrawal symptoms -stool hemoccults -IV pantoprazole 40 mg twice daily -monitor serial hematocrits She will require at least 2 midnights of inpatient level care PROFEE Charge codes Subsequent inpatient/observation care: [id number]
[2024-01-04] MEDS: SODIUM CHLORIDE 0.9% FLUSH 10 ML IV (09:34)
--- NOTE | 2024-01-04 11:13 | CM.DANOTE ---
Patient is a 53 yo female who was admitted INPT Status on 01/03/24 for Abd Pain/AMS. Pt has [employer] and [facility] for insurance and her PCP is Dr. Barry Em. EMR was reviewed. Per MD, pt with hx of ETOH abuse and withdrawals, hx of hashimotos, anxiety and depression. Pt admitted for urinary retention, GLF, anemia from possible NSAID induced ulcer, and getting a unit of blood today. SW met bedside with pt and explained role and pt confirms she still lives at home in [place] in a condo with her spouse, who is a emt intermediate ETOH drinker, and also her elderly mother that they are the caregiver for. Mother has had increased decline in health and has been in and out of SNF and family has been referred to [facility] as family kept bringing mother home but unable to care for her and APS report was made after [facility] completed home visit and concerns for ability to manage mother at home. Pt denies her own ETOH use or abuse of prescriptions medications and UDS was negative. Pt typically ambulates with a FWW or a w/c for longer distances. Pt has a hx of gastric sleeve and confirms that sometimes she gets to a point of being too hungry and scarfs food and then I have stomach pains as my gastric sleeve cannot tolerate that much food at once. Pt was last admitted in Jun 2023 for similar and was provided multiple ETOH resources and information and pt confirms she has not followed up on this as she denies any need for this. Pt confirms that her spouse could benefit from this. Pt also was established with Dr. Gomez, Psychiatrist at [facility], until about August 2023 of this year. Plan: SW to follow for slowly advancing pt's diet and to confirm no active bleed for plan of home with spouse when medically stable and any further identified discharge planning needs. ROMARIO Steele Discharge Planning/Care Management Advanced directive, confirm from FAMILY Start: 01/03/24 16:54 Freq: Q24H Status: Active Protocol: Document 01/03/24 16:54 CW (Rec: 01/03/24 17:32 CW [id number]) Advance Directive, confirm on record Time 17:31 Person contacted pt states no advanced directive Copy received No CM Discharge Assessment Start: 01/04/24 11:10 Freq: Status: Active Protocol: Document 01/04/24 11:10 BF (Rec: 01/04/24 11:13 [id number]) Discharge Planning Assessment Assigned Associate Director Of Development ROMARIO Abel DPOA/Assigned Designee Name none, informally spouse Advance Directives? No Advance Directives on File No History Provided By Patient,Medical Record Has Patient been admitted in last 30 No days? Prior Living Arrangements House Household Members spouse,family Comment Lives at home with spouse and they are caregivers to pt's elderly mother Type of transporation used prior to Relies on Others admit Comment spouse usually drives Independent with ADL's Yes Is patient alert and oriented? Yes Needs Assistance With Home Chores / Shopping Caregiver for Another Yes: elderly mother typically lives at home, currently in SNF DME Already Rented / Owned FWW / Walker Barriers to Discharge No Comment Pt in denial about ETOH abuse and has been given resources Discharge Plan Home Transportation Arrangement Spouse Referrals Initiated None needed Additional Comment Previously given ETOH resources, currently denying any ETOH abuse Whiteboard Updated in Patient Room with Yes name and ext. # of Associate Director Of Development Review Status In Process Please Provide Date Initial DC 01/04/24 Assessment Was Performed Next Review Type Continued Stay Review
[2024-01-04 14:17] LABS: Add Manual Diff / Slide Review NO; Basophils Absolute Auto 100 /uL (0-100); Eosinophils Absolute Auto 100 /uL (0-450); Eosinophils Percent Auto 1.8 % (2-4); Hematocrit 25.5 % (36-46); Hemoglobin 8.3 g/dL (12.0-16.0); Lymphocytes Absolute Auto 2300 /uL (1100-4500); Lymphocytes Percent Auto 31.7 % (25-40); Mean Corpuscular HGB Conc 32.7 % (30-36); Mean Corpuscular Volume 79.6 fL (80-100); Monocytes Absolute Auto 400 /uL (0-900); Monocytes Percent Auto 5.4 % (3-14); Neutrophils Absolute Auto 4400 /uL (1500-7000); Neutrophils Percent Auto 60.1 % (50-75); Platelet Count 273 X10^3/uL (150-400); Red Blood Cell Count 3.21 X10^6/uL (4.0-5.2); Red Cell Distribution Width 21.1 % (11.6-14.8); White Blood Cell Count 7.3 X10^3/uL (4.5-11.0)
[2024-01-04] MEDS: HYDROMORPHONE 0.5 MG INJ IV (14:29)
[2024-01-04 14:35] LABS: Anisocytosis 2+; Microcytosis 1+
[2024-01-04] MEDS: chlordiazePOXIDE 25 MG CAPSULE PO (15:25)
--- NOTE | 2024-01-04 17:16 | PC.NURSE ---
PATIENT STATES SHE IS GOING TO LEAVE ,AMA PAPERWORK OBTAINED, PATIENT THEN STATES SHE IS NOT LEAVING UNTIL SHE GETS NEXT DOSE OF PAIN MEDICATION. DR BENAVIDES INFORMED, NEW ORDER TO D/C PAIN MEDICATION. NOW PATIENT STATES IS GOING TO STAY, INFORMED,NO NEW ORDERS.
--- NOTE | 2024-01-04 22:05 | PC.NURSE ---
2002 Pt requesting pain medication for R Rib, R knee, Head pain 11/03. Offered baclofen or tylenol but patient refused Baclofen does not work for me and makes me shake. Pt states I need pain medication or I am leaving. Notified Dr Rudd via phone call at [phone] and explained that the patient is requesting pain meds or leaving AMA and he verbalized that it is not in her best interest for more pain medications at this time. Pt very agitated and anxious, at bedside. Agreed to sign AMA form. Sampson removed and IV DC'd. Pt also instructed that the home medications that are locked up in pharmacy can be picked up tomorrow morning. and pt verbalized understanding.
== END 2024-01-04 22:40 | disposition left against medical advice (07) | DRG 770 ==
LOC: ED 11:43 → AC 14:22
PROVIDERS: Internal Medicine; Admitting Provider Internal Medicine; Emergency Provider Emergency Medicine; Family Provider Family Medicine; PCP Family Medicine; Referring Provider Emergency Medicine; Visit Provider Internal Medicine
DX: F19.239 Other psychoactive substance dependence with withdrawal, unspecified (principal); R41.82 Altered mental status, unspecified; F10.90 Alcohol use, unspecified, uncomplicated; F41.8 Other specified anxiety disorders; S20.211A Contusion of right front wall of thorax, initial encounter; R33.9 Retention of urine, unspecified; K27.4 Chronic or unspecified peptic ulcer, site unspecified, with hemorrhage; D62 Acute posthemorrhagic anemia; F17.210 Nicotine dependence, cigarettes, uncomplicated; W19.XXXA Unspecified fall, initial encounter; Y90.0 Blood alcohol level of less than 20 mg/100 ml; Z53.29 Procedure and treatment not carried out because of patient's decision for other reasons; E87.6 Hypokalemia; S09.90XA Unspecified injury of head, initial encounter; R07.9 Chest pain, unspecified; W18.30XA Fall on same level, unspecified, initial encounter
CPT/HCPCS: 36415; 36430; 51798; 70450; 71045; 71101; 72125; 74177; 80048; 80053; 80305; 80320; 80329; 81001; 82140; 82550; 82728; 83540; 83550; 83690; 83735; 83880; 84443; 84484; 85025; 85027; 85610; 85730; 86850; 86900; 86901; 93005; 93010; 96365; 96366; 96375; 96376; 99284; 99285; G0378; P9016; A9270; G0480; J1170; J1885; J2470; Q9967

== ENCOUNTER 2024-08-19 15:38 | Observation (INO) | payer OTHER, SELFPAY ==
[2024-01-03 16:18] VITALS: BMI 25.9
[2024-08-19] VITALS (87 sets, daily range): BP systolic 100–137; BP diastolic 66–94; PULSE 92–110; RESP 9–34; TEMP 35.7–36.7; O2SAT 94–100
--- NOTE | 2024-08-19 15:48 | DI.RAD.S_ITS ---
PROCEDURE: XR CHEST 1V INDICATIONS: suspected sepsis TECHNIQUE: One view of the chest was acquired. COMPARISON: [facility], CR, XR CHEST 1V, 01/02/2024, 23:01. [facility], CR, XR CHEST 1V, 07/09/2023, 2:27. FINDINGS: Surgical changes and devices: None. Lungs and pleura: Lungs are clear. No pleural effusions or pneumothorax. Mediastinum: Mediastinal contours appear normal. Heart size is normal. Bones and chest wall: No suspicious bony lesions. Overlying soft tissues appear unremarkable. IMPRESSION: No acute cardiopulmonary abnormality is seen. Dictated by: Chas Johnson M.D. on 08/19/2024 at 16:36 Approved by: Chas Johnson M.D. on 08/19/2024 at 16:36
--- NOTE | 2024-08-19 15:48 | EKG_ITS ---
[address] [address] Test Date: 2024-08-19 Pat Name: Rebekah Washington Department: Room: Gender: Female Photo Printer: BRANDON : 1970 Requested By: Order Number: [id number] Reading MD: Ryan Sanchez MD Measurements Intervals Lorraine Rate: 109 P: 30 MA: 146 QRS: 39 QRSD: 66 T: 106 QT: 360 QTc: 484 Interpretive Statements Sinus tachycardia Nonspecific T wave abnormality Electronically Signed On 08-20-2024 7:40:37 PDT by Ryan Sanchez MD
--- NOTE | 2024-08-19 15:49 | DI.CT.S_ITS ---
PROCEDURE: CT HEAD/BRAIN WO CON INDICATIONS: AMS, GCS 12 TECHNIQUE: Noncontrast 4.5 mm thick angled axial sections acquired from the foramen magnum to the vertex, with coronal and sagittal reformats. For radiation dose reduction, the following was used: automated exposure control, adjustment of mA and/or kV according to patient size. COMPARISON: [facility], CT, CT HEAD/BRAIN WO CON, 01/02/2024, 22:48. [facility], CT, CT HEAD/BRAIN WO CON, 07/09/2023, 2:34. [facility], CT, CT HEAD/BRAIN WO CON, 12/02/2021, 16:09. [facility], CT, CT HEAD/BRAIN WO CON, 08/11/2021, 12:47. FINDINGS: Image quality: Diagnostic. CSF spaces: Basal cisterns are patent. No extra-axial fluid collections. Ventricles are normal in size and shape. Brain: No midline shift. No intracranial masses or hemorrhage. Deshpande-white matter interface is normal. Skull and face: Calvarium and visualized facial bones are intact, without suspicious lesions. Sinuses: Visualized sinuses and mastoids are clear. IMPRESSION: No acute intracranial pathology. Dictated by: Nuno Dinero M.D. on 08/19/2024 at 16:37 Approved by: Nuno Dinero M.D. on 08/19/2024 at 16:38
--- NOTE | 2024-08-19 15:56 | ED_ITS ---
HPI - General Adult <Kareen Kimbrough MD - Last Filed: 08/22/24 05:27> General Chief complaint: Altered Mental Status Stated complaint: AMS/Lethargy Time Seen by Provider: 08/19/24 15:40 Source: EMS Mode of arrival: EMS Related Data Home Medications Medication Instructions Recorded Confirmed dicyclomine 10 mg capsule 10 mg PO 4XD PRN IBS 07/09/23 08/21/24 levothyroxine 75 mcg tablet 75 mcg PO DAILY Hypothyroidism 07/09/23 08/21/24 ondansetron HCl 8 mg tablet 8 mg PO Q8HR PRN Nausea And 07/09/23 08/21/24 Vomiting albuterol sulfate 90 mcg/actuation 2 puff inhalation Q4H PRN wheezing 08/21/24 08/21/24 aerosol inhaler hydrochlorothiazide 25 mg tablet 25 mg PO DAILY 08/21/24 08/21/24 hydroxyzine HCl 50 mg tablet 50 mg PO Q6H PRN anxiety 08/21/24 08/21/24 Previous Rx's Medication Instructions Recorded baclofen 20 mg tablet 20 mg PO TID PRN Muscle Spasm 7 08/14/21 days #20 tabs escitalopram oxalate 20 mg tablet 20 mg PO DAILY #90 tabs 05/13/23 clonazepam 0.5 mg tablet 0.5 mg PO BID PRN Anxiety #60 tabs 07/08/23 estradiol 0.5 mg tablet 0.5 mg PO DAILY Hormone 03/12/24 replacement therapy #90 tabs progesterone micronized 100 mg 100 mg PO QAM Hormone replacement 03/12/24 capsule (Prometrium) #90 caps pantoprazole 40 mg tablet,delayed 40 mg PO BID 30 days #60 tabs 08/20/24 release Allergies Allergy/AdvReac Type Severity Reaction Status Date / Time No Known Drug Allergies Allergy Verified 09/13/22 13:48 <Estela Romero DO - Last Filed: 08/20/24 02:27> History of Present Illness HPI narrative: Patient 54-year-old female history of alcohol abuse alcohol withdrawal Yamini's presenting today by EMS. She was extremely pale altered mental status not making any sense confused. EMS reports that they have been to her house numerous times. Her was already admitted for alcohol issues earlier in the day. He was unable to answer questions at baseline for me. Does know her 1st name able to follow some commands but clearly confused does not know her last name birthday year. 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) Hx of sinus surgery (2011) History of removal of laparoscopic gastric banding device (2014) Hx of laparoscopic gastric banding (2011) Family History Grandmother Cancer Mental health problem Mother Age: 76 Mental health disorder Sister Age: 58 Heart disease Hypertension High cholesterol Mental health problem Asthma COPD (chronic obstructive pulmonary disease) Social History household members: spouse and family Smoking Status: Current every day smoker Tobacco: How many years used: 10 second hand exposure: No alcohol intake: current substance use type: does not use Smoking Status: Current every day smoker tobacco type: cigarettes alcohol intake frequency: 3 or more drinks per day Exam <Kareen Kimbrough MD - Last Filed: 08/22/24 05:27> Initial Vital Signs Initial Vital Signs: Vital Signs Temperature 97.6 F 08/19/24 15:40 Pulse Rate 110 H 08/19/24 15:40 Respiratory Rate 16 08/19/24 15:40 Blood Pressure 114/70 08/19/24 15:40 Pulse Oximetry 100 08/19/24 15:40 Oxygen Delivery Method Room Air 08/19/24 15:40 <Estela Romero DO - Last Filed: 08/20/24 02:27> Initial Vital Signs Initial Vital Signs: Vital Signs Temperature 97.6 F 08/19/24 15:40 Pulse Rate 110 H 08/19/24 15:40 Respiratory Rate 16 08/19/24 15:40 Blood Pressure 114/70 08/19/24 15:40 Pulse Oximetry 100 08/19/24 15:40 Oxygen Delivery Method Room Air 08/19/24 15:40 GENERAL: Confused pale 54-year-old female and in no acute distress. HEENT: Head atraumatic,EOMI, pupils reactive, face symmetric, moist mucous membranes CARDIOVASCULAR: Regular rate and rhythm without murmurs, rubs or gallops. RESPIRATORY: Breath sounds equal bilaterally, no wheezes rales or rhonchi. ABDOMEN: Soft, nontender. Normoactive bowel sounds all 4 quadrants. No guarding or rebound. No ascites or fluid RECTAL: Guaiac-positive EXTREMITIES: Normal range of motion, no clubbing or edema. Neurovascularly intact NEUROLOGICAL: [employer]urt[employer] Analyst strength equal bilaterally able to lift both legs. Tremors at baseline SKIN: Warm, dry, no laceration, no petechiae, no rashes or lesions. Course <Kareen Kimbrough MD - Last Filed: 08/22/24 05:27> Orders Ordered: Acetaminophen (Acetaminophen 325 Mg Tablet) 650 mg PO Q6H PRN PRN Reason: Fever/Mild Pain (1-3) Last Admin: 08/21/24 21:53 Dose: 650 mg Documented By: Admin: 08/20/24 21:10 Dose: 650 mg Documented By: DEZ Baclofen (Baclofen 10 Mg Tablet) 20 mg PO TID PRN PRN Reason: Muscle Spasm Clonazepam (Clonazepam 0.5 Mg Tablet) 0.5 mg PO BID PRN PRN Reason: Anxiety Last Admin: 08/21/24 21:53 Dose: 0.5 mg Documented By: Admin: 08/21/24 09:46 Dose: 0.5 mg Documented By: CRISTINA Dicyclomine HCl (Dicyclomine 10 Mg Capsule) 10 mg PO QID PRN PRN Reason: IBS Last Admin: 08/21/24 21:53 Dose: 10 mg Documented By: Admin: 08/21/24 09:46 Dose: 10 mg Documented By: CRISTINA Escitalopram Oxalate (Escitalopram 10 Mg Tablet) 20 mg PO DAILY [facility] Last Admin: 08/21/24 09:47 Dose: 20 mg Documented By: CRISTINA Estradiol (Estradiol 1 Mg Tablet) 0.5 mg PO DAILY [facility]I Last Admin: 08/21/24 09:46 Dose: 0.5 mg Documented By: CRISTINA Hydroxyzine HCl (Hydroxyzine Hcl 25 Mg Tablet) 50 mg PO Q6H PRN PRN Reason: anxiety Sodium Chloride (Normal Saline 0.9%) 1,000 mls @ 100 mls/hr IV CONT [facility] Stop: 09/20/24 19:14 Last Admin: 08/21/24 21:21 Dose: 100 mls/hr Documented By: Infusion: 08/21/24 19:48 Dose: Infused Documented By: Admin: 08/21/24 09:48 Dose: 100 mls/hr Documented By: CRISTINA Ceftriaxone Sodium 1,000 mg/ (Sodium Chloride) 100 mls @ 200 mls/hr IV Q24H [facility] Last Infusion: 08/21/24 22:30 Dose: Infused Documented By: Admin: 08/21/24 21:56 Dose: 200 mls/hr Documented By: ROMA Levothyroxine Sodium (Levothyroxine 75 Mcg Tablet) 75 mcg PO 0600 [facility] Last Admin: 08/21/24 06:22 Dose: Not Given Documented By: Admin: 08/20/24 05:41 Dose: 75 mcg Documented By: DEANA Naloxone HCl (Naloxone 0.4 Mg/Ml Vial) 0.2 mg IV Q2MIN PRN PRN Reason: Opiate Reversal Ondansetron HCl (Ondansetron 4 Mg/2 Ml Inj) 4 mg IV Q4HR PRN PRN Reason: Nausea And Vomiting Last Admin: 08/21/24 06:12 Dose: 4 mg Documented By: DEZ Ondansetron HCl (Ondansetron 4 Mg Odt) 4 mg SL Q6HR PRN PRN Reason: Nausea Pantoprazole Sodium (Pantoprazole Dr 40 Mg Tablet) 40 mg PO 0700,2100 [facility] Last Admin: 08/21/24 21:57 Dose: 40 mg Documented By: Admin: 08/21/24 06:22 Dose: Not Given Documented By: Admin: 08/20/24 21:10 Dose: 40 mg Documented By: DEZ Progesterone (Progesterone, Micronized 100 Mg Capsule) 100 mg PO DAILY [facility] Last Admin: 08/21/24 11:29 Dose: Not Given Documented By: CRISTINA Promethazine HCl (Promethazine 25 Mg Tablet) 12.5 mg PO Q4HR PRN PRN Reason: Nausea Last Admin: 08/21/24 22:19 Dose: 12.5 mg Documented By: Admin: 08/21/24 09:46 Dose: 12.5 mg Documented By: CRISTINA Simethicone (Simethicone 80 Mg Tablet) 80 mg PO TID PRN PRN Reason: Bloating, abdominal pain Last Admin: 08/21/24 22:19 Dose: 80 mg Documented By: Admin: 08/21/24 11:29 Dose: 80 mg Documented By: CRISTINA Sodium Chloride (Sodium Chloride 0.9% Flush) 10 ml IV PRN PRN PRN Reason: Flush Last Admin: 08/21/24 06:13 Dose: 10 ml Documented By: DEZ Sodium Chloride (Sodium Chloride 0.9% Flush) 10 ml IV BID [facility] Last Admin: 08/21/24 21:57 Dose: Not Given Documented By: Admin: 08/21/24 09:46 Dose: Not Given Documented By: Admin: 08/20/24 21:09 Dose: Not Given Documented By: DEZ Discontinued Medications Sodium Chloride (Normal Saline 0.9%) 1,000 mls @ 1,000 mls/hr IV BOLUS ONE Stop: 08/19/24 16:47 Last Infusion: 08/19/24 18:53 Dose: Infused Documented By: Admin: 08/19/24 16:25 Dose: 1,000 mls/hr Documented By: ALEBRTO Ceftriaxone Sodium 1,000 mg/ (Sodium Chloride) 100 mls @ 200 mls/hr IV NOW ONE Stop: 08/19/24 23:37 Last Infusion: 08/20/24 02:01 Dose: Infused Documented By: Admin: 08/20/24 01:03 Dose: 200 mls/hr Documented By: JUSTICE Sodium Chloride (Normal Saline 0.9%) 1,000 mls @ 100 mls/hr IV CONT [facility] Last Infusion: 08/20/24 11:39 Dose: 0 mls/hr Documented By: Admin: 08/20/24 11:37 Dose: 100 mls/hr Documented By: Infusion: 08/20/24 11:04 Dose: Infused Documented By: Admin: 08/20/24 01:04 Dose: 100 mls/hr Documented By: JUSTICE Ceftriaxone Sodium 1,000 mg/ (Sodium Chloride) 100 mls @ 200 mls/hr IV Q24H [facility] Influenza Virus Vaccine (Influenza Vaccine Qiv 0.5 Ml Syringe) 0.5 ml IM .ONCE ONE Stop: 08/20/24 09:01 Last Admin: 08/20/24 09:25 Dose: Not Given Documented By: ROSEANNE Ondansetron HCl (Ondansetron 4 Mg/2 Ml Inj) 4 mg IV NOW PRN PRN Reason: Nausea And Vomiting Last Admin: 08/21/24 02:14 Dose: 4 mg Documented By: DEZ Ondansetron HCl (Ondansetron 4 Mg Odt) 4 mg SL NOW PRN PRN Reason: Nausea And Vomiting Last Admin: 08/20/24 21:10 Dose: 4 mg Documented By: DEZ Pantoprazole Sodium (Pantoprazole 40 Mg Vial) 80 mg IV NOW ONE Stop: 08/19/24 21:08 Last Admin: 08/19/24 21:32 Dose: 80 mg Documented By: Pantoprazole Sodium (Pantoprazole 40 Mg Vial) 40 mg IV BID [facility] Last Admin: 08/20/24 09:19 Dose: 40 mg Documented By: ROSEANNE Potassium Chloride (Potassium Chloride 20 Meq Tab) 40 meq PO Q6H [facility] Stop: 08/21/24 22:16 Last Admin: 08/21/24 22:05 Dose: Not Given Documented By: Admin: 08/21/24 17:02 Dose: 40 meq Documented By: CRISTINA Sodium Chloride (Sodium Chloride 0.9% Flush) 10 ml IV BID [facility] Last Admin: 08/20/24 21:09 Dose: Not Given Documented By: Admin: 08/20/24 09:19 Dose: 10 ml Documented By: ROSEANNE Vital Signs Vital signs: Vital Signs - 8 hr 08/19/24 18:45 08/19/24 18:50 08/19/24 18:50 Temperature 98.1 F Pulse Rate 103 H Respiratory Rate 16 Blood Pressure 109/78 111/79 Pulse Oximetry 98 Oxygen Delivery Method 08/19/24 18:55 08/19/24 18:55 08/19/24 19:00 Temperature 98.1 F 98.1 F Pulse Rate 103 H 104 H Respiratory Rate 15 15 Blood Pressure 108/71 Pulse Oximetry 99 98 Oxygen Delivery Method 08/19/24 19:00 08/19/24 19:05 08/19/24 19:05 Temperature 98.1 F Pulse Rate 103 H Respiratory Rate 16 Blood Pressure 105/74 105/77 Pulse Oximetry 98 Oxygen Delivery Method 08/19/24 19:10 08/19/24 19:10 08/19/24 19:15 Temperature 98.1 F 98.1 F Pulse Rate 103 H 103 H Respiratory Rate 16 18 Blood Pressure 106/77 Pulse Oximetry 98 97 Oxygen Delivery Method 08/19/24 19:15 08/19/24 19:20 08/19/24 19:20 Temperature 98.1 F Pulse Rate 102 H Respiratory Rate 16 Blood Pressure 107/78 109/73 Pulse Oximetry 98 Oxygen Delivery Method 08/19/24 19:25 08/19/24 19:25 08/19/24 19:30 Temperature 98.1 F 98.1 F Pulse Rate 105 H 102 H Respiratory Rate 16 18 Blood Pressure 110/77 Pulse Oximetry 98 98 Oxygen Delivery Method 08/19/24 19:30 08/19/24 19:35 08/19/24 19:35 Temperature 98.1 F Pulse Rate 102 H Respiratory Rate 18 Blood Pressure 110/81 112/81 Pulse Oximetry 98 Oxygen Delivery Method 08/19/24 19:40 08/19/24 19:40 08/19/24 19:45 Temperature 98.1 F Pulse Rate 103 H Respiratory Rate 20 Blood Pressure 116/75 110/76 Pulse Oximetry 97 Oxygen Delivery Method 08/19/24 19:45 08/19/24 19:51 08/19/24 19:51 Temperature 98.1 F 98.1 F Pulse Rate 102 H 101 H Respiratory Rate 19 18 Blood Pressure 113/78 Pulse Oximetry 97 97 Oxygen Delivery Method 08/19/24 19:55 08/19/24 19:55 08/19/24 20:00 Temperature 97.9 F 97.9 F Pulse Rate 102 H 102 H Respiratory Rate 14 15 Blood Pressure 114/81 Pulse Oximetry 98 98 Oxygen Delivery Method 08/19/24 20:05 08/19/24 20:05 08/19/24 20:15 Temperature 97.9 F 97.9 F Pulse Rate 102 H 101 H Respiratory Rate 17 18 Blood Pressure 109/76 Pulse Oximetry 98 98 Oxygen Delivery Method 08/19/24 20:15 08/19/24 20:20 08/19/24 20:20 Temperature 97.9 F Pulse Rate 102 H Respiratory Rate 18 Blood Pressure 100/76 105/79 Pulse Oximetry 98 Oxygen Delivery Method 08/19/24 20:25 08/19/24 20:25 08/19/24 20:30 Temperature 97.9 F 97.9 F Pulse Rate 101 H 101 H Respiratory Rate 17 17 Blood Pressure 118/79 Pulse Oximetry 98 98 Oxygen Delivery Method 08/19/24 20:30 08/19/24 20:36 08/19/24 20:36 Temperature 97.9 F Pulse Rate 103 H Respiratory Rate 18 Blood Pressure 100/74 106/67 Pulse Oximetry 98 Oxygen Delivery Method 08/19/24 20:40 08/19/24 20:40 08/19/24 20:45 Temperature 97.9 F 97.9 F Pulse Rate 101 H 102 H Respiratory Rate 18 18 Blood Pressure 110/75 Pulse Oximetry 98 98 Oxygen Delivery Method 08/19/24 20:45 08/19/24 20:50 08/19/24 20:50 Temperature 97.9 F Pulse Rate 102 H Respiratory Rate 19 Blood Pressure 108/79 108/80 Pulse Oximetry 98 Oxygen Delivery Method 08/19/24 20:55 08/19/24 20:55 08/19/24 21:31 Temperature 97.9 F 97.7 F Pulse Rate 104 H 97 H Respiratory Rate 26 H Blood Pressure 119/81 Pulse Oximetry 99 99 Oxygen Delivery Method Room Air Room Air 08/19/24 21:32 08/19/24 21:32 08/19/24 21:33 Temperature 97.7 F 97.7 F Pulse Rate 92 H 95 H Respiratory Rate 16 12 Blood Pressure 106/69 106/69 Pulse Oximetry 99 Oxygen Delivery Method Room Air 08/19/24 21:35 08/19/24 21:35 08/19/24 21:40 Temperature 97.7 F 97.7 F Pulse Rate 95 H 93 H Respiratory Rate 12 15 Blood Pressure 103/69 Pulse Oximetry 100 100 Oxygen Delivery Method Room Air Room Air 08/19/24 21:40 08/19/24 21:45 08/19/24 21:45 Temperature 97.5 F L Pulse Rate 95 H Respiratory Rate 16 Blood Pressure 101/70 110/68 Pulse Oximetry 98 Oxygen Delivery Method Room Air 08/19/24 21:50 08/19/24 21:50 08/19/24 21:55 Temperature 97.5 F L 97.5 F L Pulse Rate 97 H 99 H Respiratory Rate 31 H 25 H Blood Pressure 106/66 Pulse Oximetry 96 94 Oxygen Delivery Method Room Air Room Air 08/19/24 21:55 08/19/24 22:00 08/19/24 22:00 Temperature 97.5 F L Pulse Rate 100 H Respiratory Rate 20 Blood Pressure 113/72 109/66 Pulse Oximetry 97 Oxygen Delivery Method Room Air 08/19/24 22:05 08/19/24 22:05 08/19/24 22:10 Temperature 97.5 F L 97.7 F Pulse Rate 100 H 99 H Respiratory Rate 22 22 Blood Pressure 101/70 Pulse Oximetry 98 98 Oxygen Delivery Method Room Air Room Air 08/19/24 22:10 08/19/24 22:15 08/19/24 22:15 Temperature 97.7 F Pulse Rate 99 H Respiratory Rate 21 Blood Pressure 114/73 115/76 Pulse Oximetry 97 Oxygen Delivery Method Room Air 08/19/24 22:20 08/19/24 22:20 08/19/24 22:25 Temperature 97.7 F 97.7 F Pulse Rate 97 H 98 H Respiratory Rate 19 14 Blood Pressure 118/81 Pulse Oximetry 98 100 Oxygen Delivery Method Room Air Room Air 08/19/24 22:25 08/19/24 22:31 08/19/24 22:35 Temperature 97.7 F 97.7 F Pulse Rate 96 H 96 H Respiratory Rate 17 18 Blood Pressure 118/82 Pulse Oximetry 100 98 Oxygen Delivery Method Room Air Room Air 08/19/24 22:35 08/19/24 22:40 08/19/24 22:40 Temperature 97.7 F Pulse Rate 98 H Respiratory Rate 10 L Blood Pressure 122/84 125/82 Pulse Oximetry 100 Oxygen Delivery Method Room Air 08/19/24 22:45 08/19/24 22:45 08/19/24 22:50 Temperature 97.7 F Pulse Rate 97 H Respiratory Rate 10 L Blood Pressure 118/87 123/90 Pulse Oximetry 100 Oxygen Delivery Method Room Air 08/19/24 22:50 08/19/24 22:55 08/19/24 22:55 Temperature 97.7 F 97.7 F Pulse Rate 96 H 95 H Respiratory Rate 9 L 9 L Blood Pressure 126/91 H Pulse Oximetry 100 100 Oxygen Delivery Method Room Air Room Air 08/19/24 23:00 08/19/24 23:00 08/19/24 23:05 Temperature 97.7 F Pulse Rate 95 H Respiratory Rate 11 L Blood Pressure 124/85 132/91 H Pulse Oximetry 100 Oxygen Delivery Method Room Air 08/19/24 23:05 08/19/24 23:10 08/19/24 23:10 Temperature 97.7 F 97.7 F Pulse Rate 95 H 95 H Respiratory Rate 17 16 Blood Pressure 135/92 H Pulse Oximetry 99 99 Oxygen Delivery Method Room Air Room Air 08/19/24 23:15 08/19/24 23:15 08/19/24 23:20 Temperature 97.7 F 97.7 F Pulse Rate 95 H 95 H Respiratory Rate 17 17 Blood Pressure 134/86 Pulse Oximetry 100 99 Oxygen Delivery Method Room Air Room Air 08/19/24 23:20 08/19/24 23:25 08/19/24 23:25 Temperature 97.9 F Pulse Rate 96 H Respiratory Rate 20 Blood Pressure 133/88 137/94 H Pulse Oximetry 97 Oxygen Delivery Method Room Air 08/19/24 23:30 08/19/24 23:30 08/19/24 23:35 Temperature 97.9 F Pulse Rate 95 H Respiratory Rate 21 Blood Pressure 129/86 127/90 Pulse Oximetry 100 Oxygen Delivery Method Room Air 08/19/24 23:35 08/19/24 23:40 08/19/24 23:40 Temperature 97.9 F 97.9 F Pulse Rate 96 H 95 H Respiratory Rate 21 21 Blood Pressure 129/89 Pulse Oximetry 99 99 Oxygen Delivery Method Room Air Room Air 08/19/24 23:45 08/19/24 23:45 08/19/24 23:50 Temperature 97.9 F 97.9 F Pulse Rate 96 H 98 H Respiratory Rate 21 13 Blood Pressure 130/85 Pulse Oximetry 98 98 Oxygen Delivery Method Room Air Room Air 08/19/24 23:50 Temperature Pulse Rate Respiratory Rate Blood Pressure 128/81 Pulse Oximetry Oxygen Delivery Method <Estela Romero DO - Last Filed: 08/20/24 02:27> Orders Ordered: Acetaminophen (Acetaminophen 325 Mg Tablet) 650 mg PO Q6H PRN PRN Reason: Fever/Mild Pain (1-3) Last Admin: 08/21/24 21:53 Dose: 650 mg Documented By: Admin: 08/20/24 21:10 Dose: 650 mg Documented By: DEZ Baclofen (Baclofen 10 Mg Tablet) 20 mg PO TID PRN PRN Reason: Muscle Spasm Clonazepam (Clonazepam 0.5 Mg Tablet) 0.5 mg PO BID PRN PRN Reason: Anxiety Last Admin: 08/21/24 21:53 Dose: 0.5 mg Documented By: Admin: 08/21/24 09:46 Dose: 0.5 mg Documented By: CRISTINA Dicyclomine HCl (Dicyclomine 10 Mg Capsule) 10 mg PO QID PRN PRN Reason: IBS Last Admin: 08/21/24 21:53 Dose: 10 mg Documented By: Admin: 08/21/24 09:46 Dose: 10 mg Documented By: CRISTINA Escitalopram Oxalate (Escitalopram 10 Mg Tablet) 20 mg PO DAILY [facility] Last Admin: 08/21/24 09:47 Dose: 20 mg Documented By: CRISTINA Estradiol (Estradiol 1 Mg Tablet) 0.5 mg PO DAILY [facility] Last Admin: 08/21/24 09:46 Dose: 0.5 mg Documented By: CRISTINA Hydroxyzine HCl (Hydroxyzine Hcl 25 Mg Tablet) 50 mg PO Q6H PRN PRN Reason: anxiety Sodium Chloride (Normal Saline 0.9%) 1,000 mls @ 100 mls/hr IV CONT [facility] Stop: 09/20/24 19:14 Last Admin: 08/21/24 21:21 Dose: 100 mls/hr Documented By: Infusion: 08/21/24 19:48 Dose: Infused Documented By: Admin: 08/21/24 09:48 Dose: 100 mls/hr Documented By: CRISTINA Ceftriaxone Sodium 1,000 mg/ (Sodium Chloride) 100 mls @ 200 mls/hr IV Q24H [facility] Last Infusion: 08/21/24 22:30 Dose: Infused Documented By: Admin: 08/21/24 21:56 Dose: 200 mls/hr Documented By: ROMA Levothyroxine Sodium (Levothyroxine 75 Mcg Tablet) 75 mcg PO 0600 [facility] Last Admin: 08/21/24 06:22 Dose: Not Given Documented By: Admin: 08/20/24 05:41 Dose: 75 mcg Documented By: HITESHY Naloxone HCl (Naloxone 0.4 Mg/Ml Vial) 0.2 mg IV Q2MIN PRN PRN Reason: Opiate Reversal Ondansetron HCl (Ondansetron 4 Mg/2 Ml Inj) 4 mg IV Q4HR PRN PRN Reason: Nausea And Vomiting Last Admin: 08/21/24 06:12 Dose: 4 mg Documented By: DEZ Ondansetron HCl (Ondansetron 4 Mg Odt) 4 mg SL Q6HR PRN PRN Reason: Nausea Pantoprazole Sodium (Pantoprazole Dr 40 Mg Tablet) 40 mg PO 0700,2100 [facility] Last Admin: 08/21/24 21:57 Dose: 40 mg Documented By: Admin: 08/21/24 06:22 Dose: Not Given Documented By: Admin: 08/20/24 21:10 Dose: 40 mg Documented By: DEZ Progesterone (Progesterone, Micronized 100 Mg Capsule) 100 mg PO DAILY [facility] Last Admin: 08/21/24 11:29 Dose: Not Given Documented By: CRISTINA Promethazine HCl (Promethazine 25 Mg Tablet) 12.5 mg PO Q4HR PRN PRN Reason: Nausea Last Admin: 08/21/24 22:19 Dose: 12.5 mg Documented By: Admin: 08/21/24 09:46 Dose: 12.5 mg Documented By: CRISTINA Simethicone (Simethicone 80 Mg Tablet) 80 mg PO TID PRN PRN Reason: Bloating, abdominal pain Last Admin: 08/21/24 22:19 Dose: 80 mg Documented By: Admin: 08/21/24 11:29 Dose: 80 mg Documented By: CRISTINA Sodium Chloride (Sodium Chloride 0.9% Flush) 10 ml IV PRN PRN PRN Reason: Flush Last Admin: 08/21/24 06:13 Dose: 10 ml Documented By: DEZ Sodium Chloride (Sodium Chloride 0.9% Flush) 10 ml IV BID [facility] Last Admin: 08/21/24 21:57 Dose: Not Given Documented By: Admin: 08/21/24 09:46 Dose: Not Given Documented By: Admin: 08/20/24 21:09 Dose: Not Given Documented By: DEZ Discontinued Medications Sodium Chloride (Normal Saline 0.9%) 1,000 mls @ 1,000 mls/hr IV BOLUS ONE Stop: 08/19/24 16:47 Last Infusion: 08/19/24 18:53 Dose: Infused Documented By: Admin: 08/19/24 16:25 Dose: 1,000 mls/hr Documented By: ALBERTO Ceftriaxone Sodium 1,000 mg/ (Sodium Chloride) 100 mls @ 200 mls/hr IV NOW ONE Stop: 08/19/24 23:37 Last Infusion: 08/20/24 02:01 Dose: Infused Documented By: Admin: 08/20/24 01:03 Dose: 200 mls/hr Documented By: JUSTICE Sodium Chloride (Normal Saline 0.9%) 1,000 mls @ 100 mls/hr IV CONT [facility] Last Infusion: 08/20/24 11:39 Dose: 0 mls/hr Documented By: Admin: 08/20/24 11:37 Dose: 100 mls/hr Documented By: Infusion: 08/20/24 11:04 Dose: Infused Documented By: Admin: 08/20/24 01:04 Dose: 100 mls/hr Documented By: JUSTICE Ceftriaxone Sodium 1,000 mg/ (Sodium Chloride) 100 mls @ 200 mls/hr IV Q24H [facility] Influenza Virus Vaccine (Influenza Vaccine Qiv 0.5 Ml Syringe) 0.5 ml IM .ONCE ONE Stop: 08/20/24 09:01 Last Admin: 08/20/24 09:25 Dose: Not Given Documented By: ROSEANNE Ondansetron HCl (Ondansetron 4 Mg/2 Ml Inj) 4 mg IV NOW PRN PRN Reason: Nausea And Vomiting Last Admin: 08/21/24 02:14 Dose: 4 mg Documented By: DEZ Ondansetron HCl (Ondansetron 4 Mg Odt) 4 mg SL NOW PRN PRN Reason: Nausea And Vomiting Last Admin: 08/20/24 21:10 Dose: 4 mg Documented By: DEZ Pantoprazole Sodium (Pantoprazole 40 Mg Vial) 80 mg IV NOW ONE Stop: 08/19/24 21:08 Last Admin: 08/19/24 21:32 Dose: 80 mg Documented By: Pantoprazole Sodium (Pantoprazole 40 Mg Vial) 40 mg IV BID [facility] Last Admin: 08/20/24 09:19 Dose: 40 mg Documented By: ROSEANNE Potassium Chloride (Potassium Chloride 20 Meq Tab) 40 meq PO Q6H [facility] Stop: 08/21/24 22:16 Last Admin: 08/21/24 22:05 Dose: Not Given Documented By: Admin: 08/21/24 17:02 Dose: 40 meq Documented By: CRISTINA Sodium Chloride (Sodium Chloride 0.9% Flush) 10 ml IV BID [facility] Last Admin: 08/20/24 21:09 Dose: Not Given Documented By: Admin: 08/20/24 09:19 Dose: 10 ml Documented By: ROSEANNE Vital Signs Vital signs: Vital Signs - 8 hr 08/19/24 18:45 08/19/24 18:50 08/19/24 18:50 Temperature 98.1 F Pulse Rate 103 H Respiratory Rate 16 Blood Pressure 109/78 111/79 Pulse Oximetry 98 Oxygen Delivery Method 08/19/24 18:55 08/19/24 18:55 08/19/24 19:00 Temperature 98.1 F 98.1 F Pulse Rate 103 H 104 H Respiratory Rate 15 15 Blood Pressure 108/71 Pulse Oximetry 99 98 Oxygen Delivery Method 08/19/24 19:00 08/19/24 19:05 08/19/24 19:05 Temperature 98.1 F Pulse Rate 103 H Respiratory Rate 16 Blood Pressure 105/74 105/77 Pulse Oximetry 98 Oxygen Delivery Method 08/19/24 19:10 08/19/24 19:10 08/19/24 19:15 Temperature 98.1 F 98.1 F Pulse Rate 103 H 103 H Respiratory Rate 16 18 Blood Pressure 106/77 Pulse Oximetry 98 97 Oxygen Delivery Method 08/19/24 19:15 08/19/24 19:20 08/19/24 19:20 Temperature 98.1 F Pulse Rate 102 H Respiratory Rate 16 Blood Pressure 107/78 109/73 Pulse Oximetry 98 Oxygen Delivery Method 08/19/24 19:25 08/19/24 19:25 08/19/24 19:30 Temperature 98.1 F 98.1 F Pulse Rate 105 H 102 H Respiratory Rate 16 18 Blood Pressure 110/77 Pulse Oximetry 98 98 Oxygen Delivery Method 08/19/24 19:30 08/19/24 19:35 08/19/24 19:35 Temperature 98.1 F Pulse Rate 102 H Respiratory Rate 18 Blood Pressure 110/81 112/81 Pulse Oximetry 98 Oxygen Delivery Method 08/19/24 19:40 08/19/24 19:40 08/19/24 19:45 Temperature 98.1 F Pulse Rate 103 H Respiratory Rate 20 Blood Pressure 116/75 110/76 Pulse Oximetry 97 Oxygen Delivery Method 08/19/24 19:45 08/19/24 19:51 08/19/24 19:51 Temperature 98.1 F 98.1 F Pulse Rate 102 H 101 H Respiratory Rate 19 18 Blood Pressure 113/78 Pulse Oximetry 97 97 Oxygen Delivery Method 08/19/24 19:55 08/19/24 19:55 08/19/24 20:00 Temperature 97.9 F 97.9 F Pulse Rate 102 H 102 H Respiratory Rate 14 15 Blood Pressure 114/81 Pulse Oximetry 98 98 Oxygen Delivery Method 08/19/24 20:05 08/19/24 20:05 08/19/24 20:15 Temperature 97.9 F 97.9 F Pulse Rate 102 H 101 H Respiratory Rate 17 18 Blood Pressure 109/76 Pulse Oximetry 98 98 Oxygen Delivery Method 08/19/24 20:15 08/19/24 20:20 08/19/24 20:20 Temperature 97.9 F Pulse Rate 102 H Respiratory Rate 18 Blood Pressure 100/76 105/79 Pulse Oximetry 98 Oxygen Delivery Method 08/19/24 20:25 08/19/24 20:25 08/19/24 20:30 Temperature 97.9 F 97.9 F Pulse Rate 101 H 101 H Respiratory Rate 17 17 Blood Pressure 118/79 Pulse Oximetry 98 98 Oxygen Delivery Method 08/19/24 20:30 08/19/24 20:36 08/19/24 20:36 Temperature 97.9 F Pulse Rate 103 H Respiratory Rate 18 Blood Pressure 100/74 106/67 Pulse Oximetry 98 Oxygen Delivery Method 08/19/24 20:40 08/19/24 20:40 08/19/24 20:45 Temperature 97.9 F 97.9 F Pulse Rate 101 H 102 H Respiratory Rate 18 18 Blood Pressure 110/75 Pulse Oximetry 98 98 Oxygen Delivery Method 08/19/24 20:45 08/19/24 20:50 08/19/24 20:50 Temperature 97.9 F Pulse Rate 102 H Respiratory Rate 19 Blood Pressure 108/79 108/80 Pulse Oximetry 98 Oxygen Delivery Method 08/19/24 20:55 08/19/24 20:55 08/19/24 21:31 Temperature 97.9 F 97.7 F Pulse Rate 104 H 97 H Respiratory Rate 26 H Blood Pressure 119/81 Pulse Oximetry 99 99 Oxygen Delivery Method Room Air Room Air 08/19/24 21:32 08/19/24 21:32 08/19/24 21:33 Temperature 97.7 F 97.7 F Pulse Rate 92 H 95 H Respiratory Rate 16 12 Blood Pressure 106/69 106/69 Pulse Oximetry 99 Oxygen Delivery Method Room Air 08/19/24 21:35 08/19/24 21:35 08/19/24 21:40 Temperature 97.7 F 97.7 F Pulse Rate 95 H 93 H Respiratory Rate 12 15 Blood Pressure 103/69 Pulse Oximetry 100 100 Oxygen Delivery Method Room Air Room Air 08/19/24 21:40 08/19/24 21:45 08/19/24 21:45 Temperature 97.5 F L Pulse Rate 95 H Respiratory Rate 16 Blood Pressure 101/70 110/68 Pulse Oximetry 98 Oxygen Delivery Method Room Air 08/19/24 21:50 08/19/24 21:50 08/19/24 21:55 Temperature 97.5 F L 97.5 F L Pulse Rate 97 H 99 H Respiratory Rate 31 H 25 H Blood Pressure 106/66 Pulse Oximetry 96 94 Oxygen Delivery Method Room Air Room Air 08/19/24 21:55 08/19/24 22:00 08/19/24 22:00 Temperature 97.5 F L Pulse Rate 100 H Respiratory Rate 20 Blood Pressure 113/72 109/66 Pulse Oximetry 97 Oxygen Delivery Method Room Air 08/19/24 22:05 08/19/24 22:05 08/19/24 22:10 Temperature 97.5 F L 97.7 F Pulse Rate 100 H 99 H Respiratory Rate 22 22 Blood Pressure 101/70 Pulse Oximetry 98 98 Oxygen Delivery Method Room Air Room Air 08/19/24 22:10 08/19/24 22:15 08/19/24 22:15 Temperature 97.7 F Pulse Rate 99 H Respiratory Rate 21 Blood Pressure 114/73 115/76 Pulse Oximetry 97 Oxygen Delivery Method Room Air 08/19/24 22:20 08/19/24 22:20 08/19/24 22:25 Temperature 97.7 F 97.7 F Pulse Rate 97 H 98 H Respiratory Rate 19 14 Blood Pressure 118/81 Pulse Oximetry 98 100 Oxygen Delivery Method Room Air Room Air 08/19/24 22:25 08/19/24 22:31 08/19/24 22:35 Temperature 97.7 F 97.7 F Pulse Rate 96 H 96 H Respiratory Rate 17 18 Blood Pressure 118/82 Pulse Oximetry 100 98 Oxygen Delivery Method Room Air Room Air 08/19/24 22:35 08/19/24 22:40 08/19/24 22:40 Temperature 97.7 F Pulse Rate 98 H Respiratory Rate 10 L Blood Pressure 122/84 125/82 Pulse Oximetry 100 Oxygen Delivery Method Room Air 08/19/24 22:45 08/19/24 22:45 08/19/24 22:50 Temperature 97.7 F Pulse Rate 97 H Respiratory Rate 10 L Blood Pressure 118/87 123/90 Pulse Oximetry 100 Oxygen Delivery Method Room Air 08/19/24 22:50 08/19/24 22:55 08/19/24 22:55 Temperature 97.7 F 97.7 F Pulse Rate 96 H 95 H Respiratory Rate 9 L 9 L Blood Pressure 126/91 H Pulse Oximetry 100 100 Oxygen Delivery Method Room Air Room Air 08/19/24 23:00 08/19/24 23:00 08/19/24 23:05 Temperature 97.7 F Pulse Rate 95 H Respiratory Rate 11 L Blood Pressure 124/85 132/91 H Pulse Oximetry 100 Oxygen Delivery Method Room Air 08/19/24 23:05 08/19/24 23:10 08/19/24 23:10 Temperature 97.7 F 97.7 F Pulse Rate 95 H 95 H Respiratory Rate 17 16 Blood Pressure 135/92 H Pulse Oximetry 99 99 Oxygen Delivery Method Room Air Room Air 08/19/24 23:15 08/19/24 23:15 08/19/24 23:20 Temperature 97.7 F 97.7 F Pulse Rate 95 H 95 H Respiratory Rate 17 17 Blood Pressure 134/86 Pulse Oximetry 100 99 Oxygen Delivery Method Room Air Room Air 08/19/24 23:20 08/19/24 23:25 08/19/24 23:25 Temperature 97.9 F Pulse Rate 96 H Respiratory Rate 20 Blood Pressure 133/88 137/94 H Pulse Oximetry 97 Oxygen Delivery Method Room Air 08/19/24 23:30 08/19/24 23:30 08/19/24 23:35 Temperature 97.9 F Pulse Rate 95 H Respiratory Rate 21 Blood Pressure 129/86 127/90 Pulse Oximetry 100 Oxygen Delivery Method Room Air 08/19/24 23:35 08/19/24 23:40 08/19/24 23:40 Temperature 97.9 F 97.9 F Pulse Rate 96 H 95 H Respiratory Rate 21 21 Blood Pressure 129/89 Pulse Oximetry 99 99 Oxygen Delivery Method Room Air Room Air 08/19/24 23:45 08/19/24 23:45 08/19/24 23:50 Temperature 97.9 F 97.9 F Pulse Rate 96 H 98 H Respiratory Rate 21 13 Blood Pressure 130/85 Pulse Oximetry 98 98 Oxygen Delivery Method Room Air Room Air 08/19/24 23:50 Temperature Pulse Rate Respiratory Rate Blood Pressure 128/81 Pulse Oximetry Oxygen Delivery Method Medical Decision Making <Kareen Kimbrough MD - Last Filed: 08/22/24 05:27> Lab Data 08/22/24 04:20 08/21/24 12:56 Labs: Lab Results 08/19/24 08/19/24 08/19/24 Range/Units 15:30 15:50 16:31 WBC 6.6 (4.5-11.0) X10^3/uL RBC 3.41 L (4.0-5.2) X10^6/uL Hgb 7.6 L (12.0-16.0) g/dL Hct 23.7 L (36-46) % MCV 69.6 L (80-100) fL MCH 22.2 L (26-34) PG MCHC 31.9 (30-36) % RDW 25.4 H (11.6-14.8) % Plt Count 256 (150-400) X10^3/uL Neut % (Auto) Not Reportable Lymph % (Auto) Not Reportable Bowman % (Auto) Not Reportable Eos % (Auto) Not Reportable Baso % (Auto) Not Reportable Lymph # (Auto) Not Reportable Bowman # (Auto) Not Reportable Baso # (Auto) Not Reportable Total Counted 100 Seg Neutrophils % 20.0 L (38-70) % Lymphocytes % (Manual) 79.0 H (25-45) % Eosinophils % (Manual) 1.0 L (2-4) % Neutrophils # (Manual) 1320 L (3303-9421) /uL RBC Morphology See below Anisocytosis 3+ H Microcytosis 2+ H Target Cells 3+ H Ovalocytes 1+ H PT 10.1 (9.4-12.5) SECONDS INR 0.9 (0.9-1.3) APTT 35 (25.1-36.5) SECONDS Sodium 136 L (137-145) mmol/L Potassium 3.7 (3.4-5.1) mmol/L Chloride 106 (98-107) mmol/L Carbon Dioxide 22 (22-32) mmol/L BUN 24 H (7-17) mg/dL Creatinine 0.74 (0.52-1.04) mg/dL Estimated GFR > 60 (>60) mL/min BUN/Creatinine Ratio 32.4 H (6-22) Glucose 85 (70-100) mg/dL Lactate 1.6 (0.7-2.1) mmol/L Calcium 9.1 (8.4-10.2) mg/dL Total Bilirubin 0.8 (0.2-1.3) mg/dL AST 39 H (14-36) IU/L ALT 22 (<35) IU/L Alkaline Phosphatase 221 H (38-126) U/L Ammonia (9-30) umol/L Total Protein 5.8 L (6.3-8.2) g/dL Albumin 2.8 L (3.5-5.0) g/dL Globulin 3.0 (1.7-4.1) g/dL Albumin/Globulin Ratio 0.9 L (1.0-2.8) Lipase 112 (23-300) U/L Procalcitonin 0.239 (<0.5) ng/mL TSH 7.55 H (0.47-4.68) uIU/mL Free T4 0.72 L (0.78-2.19) ng/dL Urine RBC None seen (0-5/HPF) Urine WBC 5-10/hpf H (0-5/HPF) Ur Squamous Epith Cells 0-1 /hpf (0-5/HPF) Urine Bacteria Few (2-10) H (None) Ur Culture Indicated? Specimen cultured Vol Urine Centrifuged 10ml (spun) U Opiates 300ng/mL cut Negative (Negative) Ur Oxycodone Screen Negative (Negative) Urine Methadone Screen Negative (Negative) Ur Barbiturates Screen Negative (Negative) U Tricyclic Antidepress Negative (Negative) Ur Phencyclidine Scrn Negative (Negative) Ur Amphetamines Screen Negative (Negative) U Methamphetamines Scrn Negative (Negative) Ur MDMA Scrn (Ecstasy) Negative (Negative) U Benzodiazepines Scrn Positive H (Negative) Urine Cocaine Screen Negative (Negative) U Marijuana (THC) Screen Negative (Negative) Urine pH Normal (Normal) Urine Specific [place] Normal (Normal) Ethyl Alcohol < 10 ( - 10) mg/dL Ur Creatinine Normal (Normal) Blood Type A Positive Antibody Screen Negative Crossmatch See Detail 08/19/24 Range/Units 20:55 WBC (4.5-11.0) X10^3/uL RBC (4.0-5.2) X10^6/uL Hgb 6.2 L* (12.0-16.0) g/dL Hct 19.4 L* (36-46) % MCV (80-100) fL MCH (26-34) PG MCHC (30-36) % RDW (11.6-14.8) % Plt Count (150-400) X10^3/uL Neut % (Auto) Lymph % (Auto) Bowman % (Auto) Eos % (Auto) Baso % (Auto) Lymph # (Auto) Bowman # (Auto) Baso # (Auto) Total Counted Seg Neutrophils % (38-70) % Lymphocytes % (Manual) (25-45) % Eosinophils % (Manual) (2-4) % Neutrophils # (Manual) (5590-2756) /uL RBC Morphology Anisocytosis Microcytosis Target Cells Ovalocytes PT (9.4-12.5) SECONDS INR (0.9-1.3) APTT (25.1-36.5) SECONDS Sodium (137-145) mmol/L Potassium (3.4-5.1) mmol/L Chloride (98-107) mmol/L Carbon Dioxide (22-32) mmol/L BUN (7-17) mg/dL Creatinine (0.52-1.04) mg/dL Estimated GFR (>60) mL/min BUN/Creatinine Ratio (6-22) Glucose (70-100) mg/dL Lactate (0.7-2.1) mmol/L Calcium (8.4-10.2) mg/dL Total Bilirubin (0.2-1.3) mg/dL AST (14-36) IU/L ALT (<35) IU/L Alkaline Phosphatase (38-126) U/L Ammonia < 9 L (9-30) umol/L Total Protein (6.3-8.2) g/dL Albumin (3.5-5.0) g/dL Globulin (1.7-4.1) g/dL Albumin/Globulin Ratio (1.0-2.8) Lipase (23-300) U/L Procalcitonin (<0.5) ng/mL TSH (0.47-4.68) uIU/mL Free T4 (0.78-2.19) ng/dL Urine RBC (0-5/HPF) Urine WBC (0-5/HPF) Ur Squamous Epith Cells (0-5/HPF) Urine Bacteria (None) Ur Culture Indicated? Vol Urine Centrifuged U Opiates 300ng/mL cut (Negative) Ur Oxycodone Screen (Negative) Urine Methadone Screen (Negative) Ur Barbiturates Screen (Negative) U Tricyclic Antidepress (Negative) Ur Phencyclidine Scrn (Negative) Ur Amphetamines Screen (Negative) U Methamphetamines Scrn (Negative) Ur MDMA Scrn (Ecstasy) (Negative) U Benzodiazepines Scrn (Negative) Urine Cocaine Screen (Negative) U Marijuana (THC) Screen (Negative) Urine pH (Normal) Urine Specific [place] (Normal) Ethyl Alcohol ( - 10) mg/dL Ur Creatinine (Normal) Blood Type Antibody Screen Crossmatch Point of Care Testing Glucose POC 98 Urine Dip Bedside Urine Glucose Negative Bedside Urine Bilirubin - Negative Bedside Urine Ketone - Negative Urine Specific [place]dwell 1.010 Bedside Urine Occult Blood - Negative Bedside Urine pH 7.0 Bedside Urine Protein +/- 15 Bedside Urine Urobilinogen - Negative Bedside Urine Nitrite - Negative Bedside Urine Leukocytes +/- 15 Esterase Point of care testing: Point of Care Testing Glucose POC 98 Urine Dip Bedside Urine Glucose Negative Bedside Urine Bilirubin - Negative Bedside Urine Ketone - Negative Urine Specific [place]dwell 1.010 Bedside Urine Occult Blood - Negative Bedside Urine pH 7.0 Bedside Urine Protein +/- 15 Bedside Urine Urobilinogen - Negative Bedside Urine Nitrite - Negative Bedside Urine Leukocytes +/- 15 Esterase <Estela Romero, DO - Last Filed: 08/20/24 02:27> Lab Data Labs: Lab Results 08/19/24 08/19/24 08/19/24 Range/Units 15:30 15:50 16:31 WBC 6.6 (4.5-11.0) X10^3/uL RBC 3.41 L (4.0-5.2) X10^6/uL Hgb 7.6 L (12.0-16.0) g/dL Hct 23.7 L (36-46) % MCV 69.6 L (80-100) fL MCH 22.2 L (26-34) PG MCHC 31.9 (30-36) % RDW 25.4 H (11.6-14.8) % Plt Count 256 (150-400) X10^3/uL Neut % (Auto) Not Reportable Lymph % (Auto) Not Reportable Bowman % (Auto) Not Reportable Eos % (Auto) Not Reportable Baso % (Auto) Not Reportable Lymph # (Auto) Not Reportable Bowman # (Auto) Not Reportable Baso # (Auto) Not Reportable Total Counted 100 Seg Neutrophils % 20.0 L (38-70) % Lymphocytes % (Manual) 79.0 H (25-45) % Eosinophils % (Manual) 1.0 L (2-4) % Neutrophils # (Manual) 1320 L (1209-6332) /uL RBC Morphology See below Anisocytosis 3+ H Microcytosis 2+ H Target Cells 3+ H Ovalocytes 1+ H PT 10.1 (9.4-12.5) SECONDS INR 0.9 (0.9-1.3) APTT 35 (25.1-36.5) SECONDS Sodium 136 L (137-145) mmol/L Potassium 3.7 (3.4-5.1) mmol/L Chloride 106 (98-107) mmol/L Carbon Dioxide 22 (22-32) mmol/L BUN 24 H (7-17) mg/dL Creatinine 0.74 (0.52-1.04) mg/dL Estimated GFR > 60 (>60) mL/min BUN/Creatinine Ratio 32.4 H (6-22) Glucose 85 (70-100) mg/dL Lactate 1.6 (0.7-2.1) mmol/L Calcium 9.1 (8.4-10.2) mg/dL Total Bilirubin 0.8 (0.2-1.3) mg/dL AST 39 H (14-36) IU/L ALT 22 (<35) IU/L Alkaline Phosphatase 221 H (38-126) U/L Ammonia (9-30) umol/L Total Protein 5.8 L (6.3-8.2) g/dL Albumin 2.8 L (3.5-5.0) g/dL Globulin 3.0 (1.7-4.1) g/dL Albumin/Globulin Ratio 0.9 L (1.0-2.8) Lipase 112 (23-300) U/L Procalcitonin 0.239 (<0.5) ng/mL TSH 7.55 H (0.47-4.68) uIU/mL Free T4 0.72 L (0.78-2.19) ng/dL Urine RBC None seen (0-5/HPF) Urine WBC 5-10/hpf H (0-5/HPF) Ur Squamous Epith Cells 0-1 /hpf (0-5/HPF) Urine Bacteria Few (2-10) H (None) Ur Culture Indicated? Specimen cultured Vol Urine Centrifuged 10ml (spun) U Opiates 300ng/mL cut Negative (Negative) Ur Oxycodone Screen Negative (Negative) Urine Methadone Screen Negative (Negative) Ur Barbiturates Screen Negative (Negative) U Tricyclic Antidepress Negative (Negative) Ur Phencyclidine Scrn Negative (Negative) Ur Amphetamines Screen Negative (Negative) U Methamphetamines Scrn Negative (Negative) Ur MDMA Scrn (Ecstasy) Negative (Negative) U Benzodiazepines Scrn Positive H (Negative) Urine Cocaine Screen Negative (Negative) U Marijuana (THC) Screen Negative (Negative) Urine pH Normal (Normal) Urine Specific [place] Normal (Normal) Ethyl Alcohol < 10 ( - 10) mg/dL Ur Creatinine Normal (Normal) Blood Type A Positive Antibody Screen Negative Crossmatch See Detail 08/19/24 Range/Units 20:55 WBC (4.5-11.0) X10^3/uL RBC (4.0-5.2) X10^6/uL Hgb 6.2 L* (12.0-16.0) g/dL Hct 19.4 L* (36-46) % MCV (80-100) fL MCH (26-34) PG MCHC (30-36) % RDW (11.6-14.8) % Plt Count (150-400) X10^3/uL Neut % (Auto) Lymph % (Auto) Bowman % (Auto) Eos % (Auto) Baso % (Auto) Lymph # (Auto) Bowman # (Auto) Baso # (Auto) Total Counted Seg Neutrophils % (38-70) % Lymphocytes % (Manual) (25-45) % Eosinophils % (Manual) (2-4) % Neutrophils # (Manual) (1977-6420) /uL RBC Morphology Anisocytosis Microcytosis Target Cells Ovalocytes PT (9.4-12.5) SECONDS INR (0.9-1.3) APTT (25.1-36.5) SECONDS Sodium (137-145) mmol/L Potassium (3.4-5.1) mmol/L Chloride (98-107) mmol/L Carbon Dioxide (22-32) mmol/L BUN (7-17) mg/dL Creatinine (0.52-1.04) mg/dL Estimated GFR (>60) mL/min BUN/Creatinine Ratio (6-22) Glucose (70-100) mg/dL Lactate (0.7-2.1) mmol/L Calcium (8.4-10.2) mg/dL Total Bilirubin (0.2-1.3) mg/dL AST (14-36) IU/L ALT (<35) IU/L Alkaline Phosphatase (38-126) U/L Ammonia < 9 L (9-30) umol/L Total Protein (6.3-8.2) g/dL Albumin (3.5-5.0) g/dL Globulin (1.7-4.1) g/dL Albumin/Globulin Ratio (1.0-2.8) Lipase (23-300) U/L Procalcitonin (<0.5) ng/mL TSH (0.47-4.68) uIU/mL Free T4 (0.78-2.19) ng/dL Urine RBC (0-5/HPF) Urine WBC (0-5/HPF) Ur Squamous Epith Cells (0-5/HPF) Urine Bacteria (None) Ur Culture Indicated? Vol Urine Centrifuged U Opiates 300ng/mL cut (Negative) Ur Oxycodone Screen (Negative) Urine Methadone Screen (Negative) Ur Barbiturates Screen (Negative) U Tricyclic Antidepress (Negative) Ur Phencyclidine Scrn (Negative) Ur Amphetamines Screen (Negative) U Methamphetamines Scrn (Negative) Ur MDMA Scrn (Ecstasy) (Negative) U Benzodiazepines Scrn (Negative) Urine Cocaine Screen (Negative) U Marijuana (THC) Screen (Negative) Urine pH (Normal) Urine Specific [place] (Normal) Ethyl Alcohol ( - 10) mg/dL Ur Creatinine (Normal) Blood Type Antibody Screen Crossmatch Point of Care Testing Glucose POC 98 Urine Dip Bedside Urine Glucose Negative Bedside Urine Bilirubin - Negative Bedside Urine Ketone - Negative Urine Specific [place] 1.010 Bedside Urine Occult Blood - Negative Bedside Urine pH 7.0 Bedside Urine Protein +/- 15 Bedside Urine Urobilinogen - Negative Bedside Urine Nitrite - Negative Bedside Urine Leukocytes +/- 15 Esterase Point of care testing: Point of Care Testing Glucose POC 98 Urine Dip Bedside Urine Glucose Negative Bedside Urine Bilirubin - Negative Bedside Urine Ketone - Negative Urine Specific [place] 1.010 Bedside Urine Occult Blood - Negative Bedside Urine pH 7.0 Bedside Urine Protein +/- 15 Bedside Urine Urobilinogen - Negative Bedside Urine Nitrite - Negative Bedside Urine Leukocytes +/- [address] scan - head: Radiologist's Impression: PROCEDURE: CT HEAD/BRAIN WO CON INDICATIONS: AMS, GCS 12 TECHNIQUE: Noncontrast 4.5 mm thick angled axial sections acquired from the foramen magnum to the vertex, with coronal and sagittal reformats. For radiation dose reduction, the following was used: automated exposure control, adjustment of mA and/or kV according to patient size. COMPARISON: [facility], CT, CT HEAD/BRAIN WO CON, 01/02/2024, 22:48. [facility], CT, CT HEAD/BRAIN WO CON, 07/09/2023, 2:34. [facility], CT, CT HEAD/BRAIN WO CON, 12/02/2021, 16:09. [facility], CT, CT HEAD/BRAIN WO CON, 08/11/2021, 12:47. FINDINGS: Image quality: Diagnostic. CSF spaces: Basal cisterns are patent. No extra-axial fluid collections. Ventricles are normal in size and shape. Brain: No midline shift. No intracranial masses or hemorrhage. Deshpande-white matter interface is normal. Skull and face: Calvarium and visualized facial bones are intact, without suspicious lesions. Sinuses: Visualized sinuses and mastoids are clear. IMPRESSION: No acute intracranial pathology. Dictated by: Nuno Dinero M.D. on 08/19/2024 at 16:37 Chest x-ray: Radiologist's Impression: PROCEDURE: XR CHEST 1V INDICATIONS: suspected sepsis TECHNIQUE: One view of the chest was acquired. COMPARISON: [facility], CR, XR CHEST 1V, 01/02/2024, 23:01. [facility], CR, XR CHEST 1V, 07/09/2023, 2:27. FINDINGS: Surgical changes and devices: None. Lungs and pleura: Lungs are clear. No pleural effusions or pneumothorax. Mediastinum: Mediastinal contours appear normal. Heart size is normal. Bones and chest wall: No suspicious bony lesions. Overlying soft tissues appear unremarkable. IMPRESSION: No acute cardiopulmonary abnormality is seen. Dictated by: Chas Johnson M.D. on 08/19/2024 at 16:36 ECG Data Attestation: I personally reviewed and interpreted this ECG as follows: Prior ECG tracings: not available for review Interpretation: Sinus rhythm rate 109 MO interval 146 QRS [address] changes MDM Narrative Medical decision making narrative: MDM CC: Confusion Complicating co-morbidities: Alcohol abuse hypothyroid Data collected from: EMS Medical records reviewed: Prior admission in December 2023 here for similar left Against Medical Advice Differential considered: Intracranial hemorrhage, hepatic encephalopathy sepsis GI bleed alcohol intoxication alcohol withdrawal Exam documented above, pertinent findings include: Extremely pale shaking able to move all extremities, she was confused guaiac positive abdomen soft no ascites Lab Test results independently reviewed as above. Pertinent findings: Hemoglobin 7.6-->6.2 Hematocrit 23.7-->19.4 Lactate 1.6 Sodium 136 potassium 3.7 chloride 106, carbon dioxide 22 BUN 24 creatinine 0.74 Bilirubin 0.8 AST 39 ALT 22 alk-phos 221 lipase 112 Ammonia 0 TSH 7.5 Urinalysis does have few bacteria with 5-10 WBCs Alcohol level 0 tox screen positive for benzos Independently reviewed EKG as above Sinus rhythm no ischemia Imaging studies independently reviewed: Head CT no acute intracranial process Chest x-ray no acute cardiopulmonary process CT chest abdomen pelvis diffuse findings moderate colitis. Acute on chronic submucosal fat metaplasia. Increased fecal load and distal colon. Major mesenteric arteries in the portal vein are patent Consultations: Dr. Tyson updated on patient's symptoms test results in regards to stable GI bleed agrees with blood transfusion Protonix and admit to medicine Dr. Lennon, hospitalist updated patient's symptoms test results Treatments: Protonix PRBC, Rocephin Re-evaluations: Patient's blood pressure are wound was soft but not hypotensive systolic 101 it actually did improve quite a bit with blood. She is sleeping soundly but easily arousable Discussion: 54-year-old female history of alcohol abuse presenting today with increasing confusion weakness. Reports unlivable living conditions as well. She was found to have GI bleed anemia guaiac-positive. But no gross melena or bright red blood. She has no evidence of variceal bleeding. She has no large bowel movements while in the ED no active bleeding on CT but does show diffuse colitis. Possible UTI she has some bacteria in her urine but she was no evidence of sepsis no leukocytosis or elevated lactate. Patient remains confused no evidence of hepatic encephalopathy her ammonia level is undetectable venous gas shows a normal CO2, levels also undetectable Critical Care Time <Estela Romero, DO - Last Filed: 08/20/24 02:27> Critical Care Time Critical Care Time: Yes Total Critical Care Time: 32 Attestation: The high probability of a clinically significant, sudden or life threatening deterioration of the [cardiovascular] system(s) required my full and direct attention, intervention and personal management. The aggregate critical care time was 32 minutes. This time is in addition to time spent performing reported procedures but includes the following: [x] Data Review and interpretation [x] Patient assessment and monitoring of vital signs [x] Documentation [x] Medication orders and management Discharge Plan Departure Patient Disposition: Admitted As Inpatient Clinical Impression: Acute GI bleeding, Alcohol abuse with withdrawal, Acute metabolic encephalopathy Admit Date/Time: 08/19/24 23:54 Admit Provider: Archie Lennon
[2024-08-19 16:14] LABS: Hematocrit 23.7 % (36-46); Hemoglobin 7.6 g/dL (12.0-16.0); Mean Corpuscular HGB Conc 31.9 % (30-36); Mean Corpuscular Hemoglobin 22.2 PG (26-34); Mean Corpuscular Volume 69.6 fL (80-100); Platelet Count 256 X10^3/uL (150-400); Red Blood Cell Count 3.41 X10^6/uL (4.0-5.2); Red Cell Distribution Width 25.4 % (11.6-14.8); White Blood Cell Count 6.6 X10^3/uL (4.5-11.0)
[2024-08-19 16:15] LABS: Add Manual Diff / Slide Review YES; INR 0.9 (0.9-1.3); Prothrombin Time 10.1 SECONDS (9.4-12.5)
[2024-08-19 16:18] LABS: PTT Partial Thromboplastin Tim 35 SECONDS (25.1-36.5)
[2024-08-19 16:20] LABS: Alanine Aminotransferase 22 IU/L (<35); Albumin 2.8 g/dL (3.5-5.0); Albumin Globulin Ratio 0.9 (1.0-2.8); Alkaline Phosphatase 221 U/L (38-126); Aspartate Aminotransferase 39 IU/L (14-36); BUN Creatinine Ratio 32.4 (6-22); Bilirubin Total 0.8 mg/dL (0.2-1.3); Blood Urea Nitrogen 24 mg/dL (7-17); Calcium 9.1 mg/dL (8.4-10.2); Carbon Dioxide 22 mmol/L (22-32); Chloride 106 mmol/L (98-107); Estimated Glomerular Filt Rate > 60 mL/min (>60); Glucose 85 mg/dL (70-100); HEMOLYSIS < 15 (0-50); Lactate (Lactic Acid) 1.6 mmol/L (0.7-2.1); Lipase 112 U/L (23-300); Potassium 3.7 mmol/L (3.4-5.1); Sodium 136 mmol/L (137-145); Total Protein 5.8 g/dL (6.3-8.2)
[2024-08-19] MEDS: SODIUM CHLORIDE 0.9% 1,000 ML 1000 ML IV (16:25)
[2024-08-19 16:36] LABS: Procalcitonin 0.239 ng/mL (<0.5)
[2024-08-19 16:51] LABS: Neutrophils Absolute Manual 1320 /uL (3000-5900); Total Cells Counted 100
[2024-08-19 16:52] LABS: Anisocytosis 3+; Microcytosis 2+; Target Cells 3+
[2024-08-19 16:54] LABS: Ovalocytes 1+
[2024-08-19 17:15] LABS: Urine Volume 10mL (spun)
[2024-08-19 17:16] LABS: Bacteria Urine Few (2-10); Culture Indicated Urine Specimen Cultured; RBC Urine None Seen (0-5/HPF); Squamous Epithelial Cell Urine 0-1 /HPF (0-5/HPF); WBC Urine 5-10/HPF (0-5/HPF)
[2024-08-19 17:25] LABS: Ethanol (ETOH) < 10 mg/dL
[2024-08-19 17:26] LABS: UR Morphine/Opiate cutoff 300 Negative (Negative); Ur Creatinine Normal (Normal); Ur Specific Gravity Normal (Normal); Urine Amphetamines Negative (Negative); Urine Barbiturates Negative (Negative); Urine Benzodiazepines Positive (Negative); Urine Cocaine Negative (Negative); Urine MDMA Negative (Negative); Urine Methadone Negative (Negative); Urine Methamphetamines Negative (Negative); Urine Oxycodone Negative (Negative); Urine Phencyclidine Negative (Negative); Urine Tetrahydrocannabinol Negative (Negative); Urine Tricyclic Antidepressant Negative (Negative); Urine pH Normal (Normal)
--- NOTE | 2024-08-19 18:14 | PC.NURSE ---
Rolled over to side. Pt woke but did not assist with turning. No skin breakdown noted to sacrum or coccyx.
[2024-08-19 21:07] LABS: Hematocrit 19.4 % (36-46); Hemoglobin 6.2 g/dL (12.0-16.0)
--- NOTE | 2024-08-19 21:10 | DI.CT.S_ITS ---
PROCEDURE: CT ANGIO ABD/PEL GI BLEED INDICATIONS: anemia gi bleed TECHNIQUE: After the administration of intravenous contrast, 2.5 mm thick sections acquired from the diaphragm to the symphysis. 10 mm maximum-intensity projection (MIP) reformats were then acquired. For radiation dose reduction, the following was used: automated exposure control. COMPARISON: [facility], CT, CT ABDOMEN PELVIS W CON, 01/03/2024, 12:01. FINDINGS: Image quality: Diagnostic Lower chest: Bibasal atelectasis. Normal heart size. Liver: Unremarkable Gallbladder and biliary system: Unremarkable, nondilated Pancreas: Mild parenchymal atrophy. No ductal dilation Spleen: Nonenlarged Adrenals: No discrete nodules Kidneys: No solid mass. No hydronephrosis. Vessels and lymph nodes: The main portal vein appears patent. No abdominal aortic aneurysm. No pathologic lymphadenopathy by size criteria. The major mesenteric arteries and renal arteries appear patent. Bowel and peritoneum: No drainable ascites or abscess. Gastric postsurgical changes. Short segment incidentally noted intussusception in the mid ileum. Increased fecal loading in the distal colon. There are moderate inflammatory changes throughout the proximal colon, mid colon, and descending colon. No small bowel obstruction. Submucosal fatty metaplasia is seen in the ascending colon No evidence of arterial bleeding A few areas of luminal densities were seen on precontrast imaging Body wall: Unremarkable Pelvis: Sampson is in place. Nonspecific mild bladder wall thickening. Bladder is under distended. Possible uterine fibroids. Reproductive organs are not well assessed otherwise on CT. Bones: No aggressive appearing osseous abnormality. There are degenerative changes. L3 height loss again seen. IMPRESSION: No definite arterial bleeding identified. Diffuse findings of moderate colitis. Appearance on CT is suggestive of acute on chronic time course, with submucosal fatty metaplasia. There is involvement of the ascending colon, transverse colon and descending colon. Increased fecal loading is seen in the distal colon. No small bowel obstruction. Consider colonoscopy correlation. The major mesenteric arteries and the portal vein are patent. Other findings above. Dictated by: Alessandro Rees M.D. on 08/19/2024 at 22:00 Approved by: Alessandro Rees M.D. on 08/19/2024 at 22:08
[2024-08-19 21:20] LABS: Ammonia (NH3) < 9 umol/L (9-30)
[2024-08-19] MEDS: PANTOPRAZOLE 40 MG VIAL 80 MG IV (21:32)
[2024-08-19 22:03] LABS: Thyroid Stimulating Hormone 7.55 uIU/mL (0.47-4.68)
[2024-08-20] VITALS (40 sets, daily range): BP systolic 117–148; BP diastolic 77–96; PULSE 86–98; RESP 10–26; TEMP 36–36.8; O2SAT 95–100; BMI 20.2
[2024-08-20 00:12] LABS: Base Excess VBG -0.8 mmol/L (0-4); HCO3 VBG 24 mmol/L (24-28); Oxygen Saturation VBG 56 % (70-75); PCO2 VBG 37.5 mmHg (45-50); PO2 VBG 29 mmHg (35-45); Total CO2 VBG 23 mmol/L (24-29); pH VBG 7.41 (7.33-7.43)
--- NOTE | 2024-08-20 00:37 | PC.NURSE ---
Assisted with Telehealth Dr. Lennon.
[2024-08-20] MEDS: cefTRIAXone 1,000 MG in SODIUM CHLORIDE 0.9% 100 ML 200 MG IV (01:03)
[2024-08-20] MEDS: SODIUM CHLORIDE 0.9% 1,000 ML 100 ML IV ×2 (01:04→11:37)
[2024-08-20 01:45] LABS: Free T4, Direct Thyroxine 0.72 ng/dL (0.78-2.19)
--- NOTE | 2024-08-20 03:23 | P.HP_ITS ---
History of Present Illness History of Present Illness Chief complaint: AMS/Lethargy Narrative: 54-year-old female with past medical history of alcohol abuse, chronic anemia, anxiety, asthma, depression and hypothyroidism presents with confusion. Of note the patient is confused and cannot provide any reliable history. The patient was found by EMS in a confused state at her home. It was reported that the patient was admitted for alcohol issues in the past. Currently the patient knows her name and knows that she is in the hospital but cannot give any reliable history and is confused about the date. In the emergency room, labs shows a hemoglobin of 6.2 previously in December 2023 it was 8.3. Sodium 136 normal lactate TSH of 7.5 UA shows some bacteria some WBC urine tox was positive for meth benzodiazepine. Chest x-ray was clear CT head shows no acute pathology CT abdomen and pelvic is also done which shows moderate colitis that could be acute or chronic. The patient was given IV ceftriaxone and IV fluid. Guaiac study was positive for brown stool. Patient had 2 units of packed red blood cells ordered and general surgery consulted. [facility] [place] Medical History (Updated 08/19/24 @ 23:38 by Estela Romero DO) Amenorrhea Neuropathy Chronic venous insufficiency Obstructive sleep apnea (Unknown) GERD (gastroesophageal reflux disease) (Unknown) Allergy (Unknown) Restless leg syndrome (2014) Anxiety (1989) Shoulder pain (Unknown) Foot pain (2003) Chronic back pain (Unknown) Vertigo (1979) Painful menstrual periods (Unknown) Heavy menses (Unknown) IBS (irritable bowel syndrome) (1985) Surgical History 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) Hx of sinus surgery (2011) History of removal of laparoscopic gastric banding device (2014) Hx of laparoscopic gastric banding (2011) Family History Grandmother Cancer Mental health problem Mother Age: 76 Mental health disorder Sister Age: 58 Heart disease Hypertension High cholesterol Mental health problem Asthma COPD (chronic obstructive pulmonary disease) Social History household members: spouse and family Smoking Status: Current every day smoker Tobacco: How many years used: 10 second hand exposure: No alcohol intake: current substance use type: does not use Meds Home Medications and Allergies Home Medications Medication Instructions Recorded Confirmed Type albuterol sulfate 90 mcg/actuation 2 puff inhalation Q4H PRN 12/30/17 01/03/24 Rx breath activated powder inhaler shortness of breath or wheezing #1 ea baclofen 20 mg tablet 20 mg PO TID PRN Muscle Spasm 7 08/14/21 01/03/24 Rx days #20 tabs naproxen sodium 220 mg capsule 220 mg PO BID PRN Pain, Mild 12/26/21 01/03/24 History escitalopram oxalate 20 mg tablet 20 mg PO DAILY #90 tabs 05/13/23 01/03/24 Rx clonazepam 0.5 mg tablet 0.5 mg PO BID PRN Anxiety #60 tabs 07/08/23 01/03/24 Rx dicyclomine 10 mg capsule 10 mg PO 4XD PRN IBS 07/09/23 01/03/24 History hydroxyzine HCl 50 mg tablet 50 mg PO BEDTIME 07/09/23 01/03/24 History levothyroxine 75 mcg tablet 75 mcg PO DAILY 07/09/23 01/03/24 History ondansetron HCl 8 mg tablet 8 mg PO DAILY PRN Nausea And 07/09/23 01/03/24 History Vomiting bupropion HCl 150 mg 24 hr tablet, 300 mg (2 x 150 mg) PO QAM #60 tabs 08/09/23 01/03/24 Rx extended release propranolol 20 mg tablet 20 mg PO TID PRN Anxiety #90 tabs 08/09/23 01/03/24 Rx estradiol 0.5 mg tablet 0.5 mg PO DAILY Hormone 03/12/24 Rx replacement therapy #90 tabs progesterone micronized 100 mg 100 mg PO QAM Hormone replacement 03/12/24 Rx capsule (Prometrium) #90 caps Allergies Allergy/AdvReac Type Severity Reaction Status Date / Time No Known Drug Allergies Allergy Verified 09/13/22 13:48 Review of Systems Review of Systems Narrative: Unable to obtain as patient is confuse Exam Vital Signs (past 8 hours): - 08/19/24 19:25 08/19/24 19:25 08/19/24 19:30 Temperature 98.1 F 98.1 F Pulse Rate 105 H 102 H Respiratory Rate 16 18 Blood Pressure 110/77 Pulse Oximetry 98 98 Oxygen Delivery Method 08/19/24 19:30 08/19/24 19:35 08/19/24 19:35 Temperature 98.1 F Pulse Rate 102 H Respiratory Rate 18 Blood Pressure 110/81 112/81 Pulse Oximetry 98 Oxygen Delivery Method 08/19/24 19:40 08/19/24 19:40 08/19/24 19:45 Temperature 98.1 F Pulse Rate 103 H Respiratory Rate 20 Blood Pressure 116/75 110/76 Pulse Oximetry 97 Oxygen Delivery Method 08/19/24 19:45 08/19/24 19:51 08/19/24 19:51 Temperature 98.1 F 98.1 F Pulse Rate 102 H 101 H Respiratory Rate 19 18 Blood Pressure 113/78 Pulse Oximetry 97 97 Oxygen Delivery Method 08/19/24 19:55 08/19/24 19:55 08/19/24 20:00 Temperature 97.9 F 97.9 F Pulse Rate 102 H 102 H Respiratory Rate 14 15 Blood Pressure 114/81 Pulse Oximetry 98 98 Oxygen Delivery Method 08/19/24 20:05 08/19/24 20:05 08/19/24 20:15 Temperature 97.9 F 97.9 F Pulse Rate 102 H 101 H Respiratory Rate 17 18 Blood Pressure 109/76 Pulse Oximetry 98 98 Oxygen Delivery Method 08/19/24 20:15 08/19/24 20:20 08/19/24 20:20 Temperature 97.9 F Pulse Rate 102 H Respiratory Rate 18 Blood Pressure 100/76 105/79 Pulse Oximetry 98 Oxygen Delivery Method 08/19/24 20:25 08/19/24 20:25 08/19/24 20:30 Temperature 97.9 F 97.9 F Pulse Rate 101 H 101 H Respiratory Rate 17 17 Blood Pressure 118/79 Pulse Oximetry 98 98 Oxygen Delivery Method 08/19/24 20:30 08/19/24 20:36 08/19/24 20:36 Temperature 97.9 F Pulse Rate 103 H Respiratory Rate 18 Blood Pressure 100/74 106/67 Pulse Oximetry 98 Oxygen Delivery Method 08/19/24 20:40 08/19/24 20:40 08/19/24 20:45 Temperature 97.9 F 97.9 F Pulse Rate 101 H 102 H Respiratory Rate 18 18 Blood Pressure 110/75 Pulse Oximetry 98 98 Oxygen Delivery Method 08/19/24 20:45 08/19/24 20:50 08/19/24 20:50 Temperature 97.9 F Pulse Rate 102 H Respiratory Rate 19 Blood Pressure 108/79 108/80 Pulse Oximetry 98 Oxygen Delivery Method 08/19/24 20:55 08/19/24 20:55 08/19/24 21:31 Temperature 97.9 F 97.7 F Pulse Rate 104 H 97 H Respiratory Rate 26 H Blood Pressure 119/81 Pulse Oximetry 99 99 Oxygen Delivery Method Room Air Room Air 08/19/24 21:32 08/19/24 21:32 08/19/24 21:33 Temperature 97.7 F 97.7 F Pulse Rate 92 H 95 H Respiratory Rate 16 12 Blood Pressure 106/69 106/69 Pulse Oximetry 99 Oxygen Delivery Method Room Air 08/19/24 21:35 08/19/24 21:35 08/19/24 21:40 Temperature 97.7 F 97.7 F Pulse Rate 95 H 93 H Respiratory Rate 12 15 Blood Pressure 103/69 Pulse Oximetry 100 100 Oxygen Delivery Method Room Air Room Air 08/19/24 21:40 08/19/24 21:45 08/19/24 21:45 Temperature 97.5 F L Pulse Rate 95 H Respiratory Rate 16 Blood Pressure 101/70 110/68 Pulse Oximetry 98 Oxygen Delivery Method Room Air 08/19/24 21:50 08/19/24 21:50 08/19/24 21:55 Temperature 97.5 F L 97.5 F L Pulse Rate 97 H 99 H Respiratory Rate 31 H 25 H Blood Pressure 106/66 Pulse Oximetry 96 94 Oxygen Delivery Method Room Air Room Air 08/19/24 21:55 08/19/24 22:00 08/19/24 22:00 Temperature 97.5 F L Pulse Rate 100 H Respiratory Rate 20 Blood Pressure 113/72 109/66 Pulse Oximetry 97 Oxygen Delivery Method Room Air 08/19/24 22:05 08/19/24 22:05 08/19/24 22:10 Temperature 97.5 F L 97.7 F Pulse Rate 100 H 99 H Respiratory Rate 22 22 Blood Pressure 101/70 Pulse Oximetry 98 98 Oxygen Delivery Method Room Air Room Air 08/19/24 22:10 08/19/24 22:15 08/19/24 22:15 Temperature 97.7 F Pulse Rate 99 H Respiratory Rate 21 Blood Pressure 114/73 115/76 Pulse Oximetry 97 Oxygen Delivery Method Room Air 08/19/24 22:20 08/19/24 22:20 08/19/24 22:25 Temperature 97.7 F 97.7 F Pulse Rate 97 H 98 H Respiratory Rate 19 14 Blood Pressure 118/81 Pulse Oximetry 98 100 Oxygen Delivery Method Room Air Room Air 08/19/24 22:25 08/19/24 22:31 08/19/24 22:35 Temperature 97.7 F 97.7 F Pulse Rate 96 H 96 H Respiratory Rate 17 18 Blood Pressure 118/82 Pulse Oximetry 100 98 Oxygen Delivery Method Room Air Room Air 08/19/24 22:35 08/19/24 22:40 08/19/24 22:40 Temperature 97.7 F Pulse Rate 98 H Respiratory Rate 10 L Blood Pressure 122/84 125/82 Pulse Oximetry 100 Oxygen Delivery Method Room Air 08/19/24 22:45 08/19/24 22:45 08/19/24 22:50 Temperature 97.7 F Pulse Rate 97 H Respiratory Rate 10 L Blood Pressure 118/87 123/90 Pulse Oximetry 100 Oxygen Delivery Method Room Air 08/19/24 22:50 08/19/24 22:55 08/19/24 22:55 Temperature 97.7 F 97.7 F Pulse Rate 96 H 95 H Respiratory Rate 9 L 9 L Blood Pressure 126/91 H Pulse Oximetry 100 100 Oxygen Delivery Method Room Air Room Air 08/19/24 23:00 08/19/24 23:00 08/19/24 23:05 Temperature 97.7 F Pulse Rate 95 H Respiratory Rate 11 L Blood Pressure 124/85 132/91 H Pulse Oximetry 100 Oxygen Delivery Method Room Air 08/19/24 23:05 08/19/24 23:10 08/19/24 23:10 Temperature 97.7 F 97.7 F Pulse Rate 95 H 95 H Respiratory Rate 17 16 Blood Pressure 135/92 H Pulse Oximetry 99 99 Oxygen Delivery Method Room Air Room Air 08/19/24 23:15 08/19/24 23:15 08/19/24 23:20 Temperature 97.7 F 97.7 F Pulse Rate 95 H 95 H Respiratory Rate 17 17 Blood Pressure 134/86 Pulse Oximetry 100 99 Oxygen Delivery Method Room Air Room Air 08/19/24 23:20 08/19/24 23:25 08/19/24 23:25 Temperature 97.9 F Pulse Rate 96 H Respiratory Rate 20 Blood Pressure 133/88 137/94 H Pulse Oximetry 97 Oxygen Delivery Method Room Air 08/19/24 23:30 08/19/24 23:30 08/19/24 23:35 Temperature 97.9 F Pulse Rate 95 H Respiratory Rate 21 Blood Pressure 129/86 127/90 Pulse Oximetry 100 Oxygen Delivery Method Room Air 08/19/24 23:35 08/19/24 23:40 08/19/24 23:40 Temperature 97.9 F 97.9 F Pulse Rate 96 H 95 H Respiratory Rate 21 21 Blood Pressure 129/89 Pulse Oximetry 99 99 Oxygen Delivery Method Room Air Room Air 08/19/24 23:45 08/19/24 23:45 08/19/24 23:50 Temperature 97.9 F 97.9 F Pulse Rate 96 H 98 H Respiratory Rate 21 13 Blood Pressure 130/85 Pulse Oximetry 98 98 Oxygen Delivery Method Room Air Room Air 08/19/24 23:50 08/19/24 23:55 08/19/24 23:55 Temperature 97.9 F Pulse Rate 98 H Respiratory Rate 16 Blood Pressure 128/81 118/86 Pulse Oximetry 97 Oxygen Delivery Method Room Air 08/20/24 00:00 08/20/24 00:00 08/20/24 00:05 Temperature 97.9 F 97.9 F Pulse Rate 97 H 97 H Respiratory Rate 13 10 L Blood Pressure 123/84 Pulse Oximetry 100 100 Oxygen Delivery Method Room Air Room Air 08/20/24 00:05 08/20/24 00:10 08/20/24 00:10 Temperature 97.9 F Pulse Rate 96 H Respiratory Rate 13 Blood Pressure 130/90 126/90 Pulse Oximetry 100 Oxygen Delivery Method Room Air 08/20/24 00:15 08/20/24 00:15 08/20/24 00:20 Temperature 97.9 F 97.9 F Pulse Rate 97 H 97 H Respiratory Rate 18 14 Blood Pressure 129/92 H Pulse Oximetry 99 100 Oxygen Delivery Method Room Air Room Air 08/20/24 00:20 08/20/24 00:25 08/20/24 00:25 Temperature 97.9 F Pulse Rate 95 H Respiratory Rate 13 Blood Pressure 123/91 H 135/93 H Pulse Oximetry 100 Oxygen Delivery Method Room Air 08/20/24 00:30 08/20/24 00:30 08/20/24 00:30 Temperature 97.9 F 97.9 F Pulse Rate 95 H 95 H Respiratory Rate 12 12 Blood Pressure 136/87 Pulse Oximetry 100 100 Oxygen Delivery Method Room Air Room Air 08/20/24 00:35 08/20/24 00:35 08/20/24 00:40 Temperature 97.9 F 97.9 F Pulse Rate 96 H 97 H Respiratory Rate 16 16 Blood Pressure 126/86 Pulse Oximetry 100 100 Oxygen Delivery Method Room Air Room Air 08/20/24 00:40 08/20/24 00:45 08/20/24 00:45 Temperature 97.9 F Pulse Rate 96 H Respiratory Rate 13 Blood Pressure 126/86 127/91 H Pulse Oximetry 100 Oxygen Delivery Method Room Air 08/20/24 00:50 08/20/24 00:50 08/20/24 00:55 Temperature 98.1 F 98.1 F Pulse Rate 96 H 96 H Respiratory Rate 15 13 Blood Pressure 132/91 H Pulse Oximetry 100 100 Oxygen Delivery Method Room Air Room Air 08/20/24 00:55 08/20/24 01:00 08/20/24 01:00 Temperature 98.1 F Pulse Rate 96 H Respiratory Rate 13 Blood Pressure 132/82 131/87 Pulse Oximetry 100 Oxygen Delivery Method Room Air 08/20/24 01:05 08/20/24 01:05 08/20/24 02:43 Temperature 98.1 F 97.3 F L Pulse Rate 96 H 94 H Respiratory Rate 16 13 Blood Pressure 130/87 134/95 H Pulse Oximetry 100 100 Oxygen Delivery Method Room Air Oxygen Delivery Method Room Air Narrative Exam Narrative: Physical Exam: GENERAL: The patient is not in any acute distressed. confused HEENT: Nonicteric sclerae, PERRLA, EOMI. Oropharynx clear. Moist mucous membranes. Conjunctivae appear well perfused. HEART: Regular rate and rhythm without murmurs. No lower extremities edema. LUNGS: Clear to auscultation bilaterally. No wheezing, crackles or rhonchi ABDOMEN: Soft, positive bowel sounds, nontender. SKIN: No rash, no excessive bruising, petechiae, or purpura. NEUROLOGIC: AxO x self only. Cranial nerves II-XII intact without motor/sensory deficit. Objective Labs 08/19/24 20:55 08/19/24 15:50 Labs: Laboratory Results - last 24 hr 08/19/24 08/19/24 08/19/24 15:30 15:50 16:31 WBC 6.6 RBC 3.41 L Hgb 7.6 L Hct 23.7 L MCV 69.6 L MCH 22.2 L MCHC 31.9 RDW 25.4 H Plt Count 256 Neut % (Auto) Not Reportable Lymph % (Auto) Not Reportable Davie % (Auto) Not Reportable Eos % (Auto) Not Reportable Baso % (Auto) Not Reportable Lymph # (Auto) Not Reportable [place]ie # (Auto) Not Reportable Baso # (Auto) Not Reportable Total Counted 100 Seg Neutrophils % 20.0 L Lymphocytes % (Manual) 79.0 H Eosinophils % (Manual) 1.0 L Neutrophils # (Manual) 1320 L RBC Morphology See below Anisocytosis 3+ H Microcytosis 2+ H Target Cells 3+ H Ovalocytes 1+ H PT 10.1 INR 0.9 APTT 35 VBG pH VBG pCO2 VBG pO2 VBG HCO3 VBG Total CO2 VBG O2 Saturation VBG Base Excess FiO2 % Sodium 136 L Potassium 3.7 Chloride 106 Carbon Dioxide 22 BUN 24 H Creatinine 0.74 Estimated GFR > 60 BUN/Creatinine Ratio 32.4 H Glucose 85 Lactate 1.6 Calcium 9.1 Total Bilirubin 0.8 AST 39 H ALT 22 Alkaline Phosphatase 221 H Ammonia Total Protein 5.8 L Albumin 2.8 L Globulin 3.0 Albumin/Globulin Ratio 0.9 L Lipase 112 Procalcitonin 0.239 TSH 7.55 H Free T4 0.72 L Urine RBC None seen Urine WBC 5-10/hpf H Ur Squamous Epith Cells 0-1 /hpf Urine Bacteria Few (2-10) H Ur Culture Indicated? Specimen cultured Vol Urine Centrifuged 10ml (spun) U Opiates 300ng/mL cut Negative Ur Oxycodone Screen Negative Urine Methadone Screen Negative Ur Barbiturates Screen Negative U Tricyclic Antidepress Negative Ur Phencyclidine Scrn Negative Ur Amphetamines Screen Negative U Methamphetamines Scrn Negative Ur MDMA Scrn (Ecstasy) Negative U Benzodiazepines Scrn Positive H Urine Cocaine Screen Negative U Marijuana (THC) Screen Negative Urine pH Normal Urine Specific Declo Normal Ethyl Alcohol < 10 Ur Creatinine Normal Blood Type A Positive Antibody Screen Negative Crossmatch See Detail 08/19/24 08/20/24 20:55 00:09 WBC RBC Hgb 6.2 L* Hct 19.4 L* MCV MCH MCHC RDW Plt Count Neut % (Auto) Lymph % (Auto) Davie % (Auto) Eos % (Auto) Baso % (Auto) Lymph # (Auto) Davie # (Auto) Baso # (Auto) Total Counted Seg Neutrophils % Lymphocytes % (Manual) Eosinophils % (Manual) Neutrophils # (Manual) RBC Morphology Anisocytosis Microcytosis Target Cells Ovalocytes PT INR APTT VBG pH 7.41 VBG pCO2 37.5 L VBG pO2 29 L VBG HCO3 24 VBG Total CO2 23 L VBG O2 Saturation 56 L VBG Base Excess -0.8 L FiO2 % 21.0 % Sodium Potassium Chloride Carbon Dioxide BUN Creatinine Estimated GFR BUN/Creatinine Ratio Glucose Lactate Calcium Total Bilirubin AST ALT Alkaline Phosphatase Ammonia < 9 L Total Protein Albumin Globulin Albumin/Globulin Ratio Lipase Procalcitonin TSH Free T4 Urine RBC Urine WBC Ur Squamous Epith Cells Urine Bacteria Ur Culture Indicated? Vol Urine Centrifuged U Opiates 300ng/mL cut Ur Oxycodone Screen Urine Methadone Screen Ur Barbiturates Screen U Tricyclic Antidepress Ur Phencyclidine Scrn Ur Amphetamines Screen U Methamphetamines Scrn Ur MDMA Scrn (Ecstasy) U Benzodiazepines Scrn Urine Cocaine Screen U Marijuana (THC) Screen Urine pH Urine Specific Declo Ethyl Alcohol Ur Creatinine Blood Type Antibody Screen Crossmatch Assessment & Plan Assessment & Plan narrative: Acute encephalopathy. Admit the patient to ICU. Unclear etiology. Ammonia level was negative. TSH is elevated pending T4. CT head is negative. Not septic at this point though the patient does seem to have UTI and signs of colitis. Continue to treat underlying infection and monitor mentations. Also patient does have a history of alcohol abuse and wonder if it is part of alcohol withdrawal confusion. Alcohol withdrawal. Continue to monitor for withdrawal with CIWA protocol. IV fluid. Possible GI bleed. Of note stool was brown but guaiac positive. Patient dropped from a hemoglobin of 8 and now up to 6.2. 2 units of packed red blood cells ordered in the ER. General surgery consulted. NPO. IV pantoprazole. Monitor for any active bleeding. UTI. Continue IV ceftriaxone. Acute on chronic colitis. IV ceftriaxone and monitor for now. IV fluid. Hypothyroidism with elevated TSH. Pending T4. Resume home Synthroid and follow-up T4. Anxiety and depression. Monitor for now and once mentation improves resume home medication. DVT prophylaxis SCDs due to concern for GI bleed. CODE STATUS full code will need to confirm with patient's family in the morning. Disposition likely home in 2 to 3 days. - As the provider of this telehealth evaluation, requested by the patient's evaluating physician, I attest that I introduced myself to the patient, provided my credentials and determined that telemedicine via a real-time, 2 way interactive audio and video platform is an appropriate and effective means of providing this service. - I reviewed the patient's chart and had a discussion with the member of the patient's treatment team. - The patient and I mutually agreed with continuation of this evaluation via telemedicine. The patient consented for the telemedicine evaluation. - This virtual encounter was taken place from [place]. The encounter was approximately 35 minutes. The nurse was present during the entire time of the encounter and was able to move the stethoscope in appropriate directions. The patient was evaluated at [facility]. Time-Based Coding :: [TOTAL MINUTES] spent with patient and on the chart (including review of chart, obtaining history, exam, reviewing outside data, placing orders, documenting exam and treatment plan, and counseling patient) on [DATE]. Quality VTE Deep Vein Thrombosis/Pulmonary Embolism Present on Admission: No
--- NOTE | 2024-08-20 03:27 | PC.NURSE ---
Addendum entered by Joya Younger R.N. 08/20/24 05:57: 0545 - Patient able to take PO meds with a small amount of water. Eyes teary, assisted to wash her face. Patient's mother called on the phone, patient able to answer, however patient remains confused. Call light in reach, bed alarm on. Original Note: Arrived in ICU at 0215. Frequently answers yes to questions. Slow verbal response. Oriented to self and place. Able to assist with some care, however delayed. PRBC infusion, NS at 100cc/hr infusing. Transfer to bed via slider board. Noemí-care. Skin photo. Barrier cream and brief applied. Temp sensing Sampson in place, 97.9. Per ED report hypothermic on arrival. Oriented to room, NPO status, and call light. Drowsy. Patient's Lam request to visit. Patient gave verbal approval. Bed alarm on.
--- NOTE | 2024-08-20 03:47 | PC.WOUNDPHOT ---
Yeast-like area under right breast with small fissure.
[2024-08-20] MEDS: LEVOTHYROXINE 75 MCG TABLET PO (05:41)
[2024-08-20 06:45] LABS: Add Manual Diff / Slide Review NO; Basophils Absolute Auto 0 /uL (0-100); Basophils Percent Auto 0.4 % (0-2); Eosinophils Absolute Auto 100 /uL (0-450); Eosinophils Percent Auto 0.8 % (2-4); Hematocrit 35.9 % (36-46); Hemoglobin 11.8 g/dL (12.0-16.0); Lymphocytes Absolute Auto 1800 /uL (1100-4500); Lymphocytes Percent Auto 24.2 % (25-40); Mean Corpuscular HGB Conc 32.8 % (30-36); Mean Corpuscular Hemoglobin 24.9 PG (26-34); Mean Corpuscular Volume 75.9 fL (80-100); Monocytes Absolute Auto 200 /uL (0-900); Monocytes Percent Auto 2.8 % (3-14); Neutrophils Absolute Auto 5200 /uL (1500-7000); Neutrophils Percent Auto 71.8 % (50-75); Platelet Count 148 X10^3/uL (150-400); Red Blood Cell Count 4.73 X10^6/uL (4.0-5.2); Red Cell Distribution Width 21.7 % (11.6-14.8); White Blood Cell Count 7.3 X10^3/uL (4.5-11.0)
[2024-08-20 07:52] LABS: Anisocytosis 2+; Poikilocytosis 1+
[2024-08-20 07:53] LABS: Microcytosis 1+; Target Cells 1+
[2024-08-20] MEDS: PANTOPRAZOLE 40 MG VIAL IV (09:19)
[2024-08-20] MEDS: SODIUM CHLORIDE 0.9% FLUSH 10 ML IV (09:19)
--- NOTE | 2024-08-20 09:37 | P.PN_ITS ---
Subjective Subjective Date Patient Seen: 08/20/24 Time Patient Seen: 09:37 Interval history: Called for concern for GI bleed. 2U pRBC overnight. no melena per nurse and patient. HD normal. Exam Vital Signs (past 8 hours): - 08/20/24 01:40 08/20/24 01:40 08/20/24 01:45 Temperature 98.1 F 98.1 F Pulse Rate 94 H 95 H Respiratory Rate 18 19 Blood Pressure 128/85 Pulse Oximetry 96 97 Oxygen Delivery Method 08/20/24 01:45 08/20/24 01:50 08/20/24 01:50 Temperature 98.1 F Pulse Rate 95 H Respiratory Rate 20 Blood Pressure 126/77 128/83 Pulse Oximetry 97 Oxygen Delivery Method 08/20/24 01:55 08/20/24 01:55 08/20/24 02:00 Temperature 98.1 F Pulse Rate 96 H Respiratory Rate 19 Blood Pressure 127/86 136/92 H Pulse Oximetry 95 Oxygen Delivery Method 08/20/24 02:00 08/20/24 02:05 08/20/24 02:05 Temperature 98.1 F 98.1 F Pulse Rate 95 H 97 H Respiratory Rate 19 12 Blood Pressure 138/86 Pulse Oximetry 97 100 Oxygen Delivery Method 08/20/24 02:10 08/20/24 02:10 08/20/24 02:43 Temperature 98.1 F 97.3 F L Pulse Rate 95 H 94 H Respiratory Rate 12 13 Blood Pressure 140/82 134/95 H Pulse Oximetry 100 100 Oxygen Delivery Method 08/20/24 04:07 08/20/24 04:07 08/20/24 04:25 Temperature 97.9 F 97.7 F Pulse Rate 91 H 92 H Respiratory Rate 20 18 Blood Pressure 134/95 H 134/87 Pulse Oximetry 98 Oxygen Delivery Method Room Air 08/20/24 07:23 08/20/24 08:00 08/20/24 08:00 Temperature 98.2 F 97.9 F 98.1 F Pulse Rate 90 91 H Respiratory Rate 14 13 Blood Pressure Pulse Oximetry 100 100 Oxygen Delivery Method 08/20/24 08:00 08/20/24 09:00 08/20/24 09:00 Temperature 98.1 F Pulse Rate 86 Respiratory Rate 16 Blood Pressure 148/94 H 130/90 Pulse Oximetry 99 Oxygen Delivery Method Oxygen Delivery Method Room Air Narrative Exam Narrative: NAD, AAO. intermittently confused. HR 87, SBP normal. RRR. CTAB. Abd soft, non tender, non distended. no melena. Const General: cooperative Nutritional Appearance: average body habitus Orientation: alert and awake Other: pale Eyes General: appearance normal, both eyes and all related structures Neck Neck: normal visual inspection Chest Chest: normal inspection of the chest Resp Effort & Inspection: normal respiratory effort GI Inspection: normal to inspection Palpation: soft, no hepatosplenomegaly, guarding, hepatomegaly and splenomegaly Objective Imaging CT scan - abdomen: My impression: stool. colitis. no fluid. hiatal hernia. Radiologist's impression: IMPRESSION: No definite arterial bleeding identified. Diffuse findings of moderate colitis. Appearance on CT is suggestive of acute on chronic time course, with submucosal fatty metaplasia. There is involvement of the ascending colon, transverse colon and descending colon. Increased fecal loading is seen in the distal colon. No small bowel obstruction. Consider colonoscopy correlation. The major mesenteric arteries and the portal vein are patent. Other findings above. Labs 08/20/24 06:25 08/19/24 15:50 Labs: Laboratory Results - last 24 hr 08/19/24 08/19/24 08/19/24 15:30 15:50 16:31 WBC 6.6 RBC 3.41 L Hgb 7.6 L Hct 23.7 L MCV 69.6 L MCH 22.2 L MCHC 31.9 RDW 25.4 H Plt Count 256 Neut % (Auto) Not Reportable Lymph % (Auto) Not Reportable [place] % (Auto) Not Reportable Eos % (Auto) Not Reportable Baso % (Auto) Not Reportable Neut # (Auto) Lymph # (Auto) Not Reportable [place] # (Auto) Not Reportable Eos # (Auto) Baso # (Auto) Not Reportable Total Counted 100 Seg Neutrophils % 20.0 L Lymphocytes % (Manual) 79.0 H Eosinophils % (Manual) 1.0 L Neutrophils # (Manual) 1320 L RBC Morphology See below Poikilocytosis Anisocytosis 3+ H Microcytosis 2+ H Target Cells 3+ H Ovalocytes 1+ H PT 10.1 INR 0.9 APTT 35 VBG pH VBG pCO2 VBG pO2 VBG HCO3 VBG Total CO2 VBG O2 Saturation VBG Base Excess FiO2 % Sodium 136 L Potassium 3.7 Chloride 106 Carbon Dioxide 22 BUN 24 H Creatinine 0.74 Estimated GFR > 60 BUN/Creatinine Ratio 32.4 H Glucose 85 Lactate 1.6 Calcium 9.1 Total Bilirubin 0.8 AST 39 H ALT 22 Alkaline Phosphatase 221 H Ammonia Total Protein 5.8 L Albumin 2.8 L Globulin 3.0 Albumin/Globulin Ratio 0.9 L Lipase 112 Procalcitonin 0.239 TSH 7.55 H Free T4 0.72 L Urine RBC None seen Urine WBC 5-10/hpf H Ur Squamous Epith Cells 0-1 /hpf Urine Bacteria Few (2-10) H Ur Culture Indicated? Specimen cultured Vol Urine Centrifuged 10ml (spun) U Opiates 300ng/mL cut Negative Ur Oxycodone Screen Negative Urine Methadone Screen Negative Ur Barbiturates Screen Negative U Tricyclic Antidepress Negative Ur Phencyclidine Scrn Negative Ur Amphetamines Screen Negative U Methamphetamines Scrn Negative Ur MDMA Scrn (Ecstasy) Negative U Benzodiazepines Scrn Positive H Urine Cocaine Screen Negative U Marijuana (THC) Screen Negative Urine pH Normal Urine Specific [place] Normal Ethyl Alcohol < 10 Ur Creatinine Normal Blood Type A Positive Antibody Screen Negative Crossmatch See Detail 08/19/24 08/20/24 08/20/24 20:55 00:09 06:25 WBC 7.3 RBC 4.73 Hgb 6.2 L* 11.8 L Hct 19.4 L* 35.9 L MCV 75.9 L D MCH 24.9 L MCHC 32.8 RDW 21.7 H Plt Count 148 L Neut % (Auto) 71.8 Lymph % (Auto) 24.2 L [place] % (Auto) 2.8 L Eos % (Auto) 0.8 L Baso % (Auto) 0.4 Neut # (Auto) 5200 Lymph # (Auto) 1800 [place] # (Auto) 200 Eos # (Auto) 100 Baso # (Auto) 0 Total Counted Seg Neutrophils % Lymphocytes % (Manual) Eosinophils % (Manual) Neutrophils # (Manual) RBC Morphology See below Poikilocytosis 1+ H Anisocytosis 2+ H Microcytosis 1+ H Target Cells 1+ H D Ovalocytes PT INR APTT VBG pH 7.41 VBG pCO2 37.5 L VBG pO2 29 L VBG HCO3 24 VBG Total CO2 23 L VBG O2 Saturation 56 L VBG Base Excess -0.8 L FiO2 % 21.0 % Sodium Potassium Chloride Carbon Dioxide BUN Creatinine Estimated GFR BUN/Creatinine Ratio Glucose Lactate Calcium Total Bilirubin AST ALT Alkaline Phosphatase Ammonia < 9 L Total Protein Albumin Globulin Albumin/Globulin Ratio Lipase Procalcitonin TSH Free T4 Urine RBC Urine WBC Ur Squamous Epith Cells Urine Bacteria Ur Culture Indicated? Vol Urine Centrifuged U Opiates 300ng/mL cut Ur Oxycodone Screen Urine Methadone Screen Ur Barbiturates Screen U Tricyclic Antidepress Ur Phencyclidine Scrn Ur Amphetamines Screen U Methamphetamines Scrn Ur MDMA Scrn (Ecstasy) U Benzodiazepines Scrn Urine Cocaine Screen U Marijuana (THC) Screen Urine pH Urine Specific [place] Ethyl Alcohol Ur Creatinine Blood Type Antibody Screen Crossmatch [facility] Medical History (Updated 08/19/24 @ 23:38 by Estela Romero DO) Amenorrhea Neuropathy Chronic venous insufficiency Obstructive sleep apnea (Unknown) GERD (gastroesophageal reflux disease) (Unknown) Allergy (Unknown) Restless leg syndrome (2014) Anxiety (1989) Shoulder pain (Unknown) Foot pain (2003) Chronic back pain (Unknown) Vertigo (1979) Painful menstrual periods (Unknown) Heavy menses (Unknown) IBS (irritable bowel syndrome) (1985) Surgical History 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) Hx of sinus surgery (2011) History of removal of laparoscopic gastric banding device (2014) Hx of laparoscopic gastric banding (2011) Family History Grandmother Cancer Mental health problem Mother Age: 76 Mental health disorder Sister Age: 58 Heart disease Hypertension High cholesterol Mental health problem Asthma COPD (chronic obstructive pulmonary disease) Social History household members: spouse and family Smoking Status: Current every day smoker Tobacco: How many years used: 10 second hand exposure: No alcohol intake: current substance use type: does not use Assessment & Plan Assessment & Plan narrative: GI bleed- -does not appear acute. Hb from around 7- around 12 with 2 U PRBC is a huge jump- indicated potential spurious low Hb on lab -ct no EO bleeding -no ongoing hematochezia or melena -acute on chronic colitis- will not plan to scope in acute setting but will need scope as outpatient to eval/colitis workup -agree with ppi -would advance diet as tolerated- no planned procedure at this time -out of ICU per hospitalist team discretion Time-Based Coding :: [TOTAL MINUTES] spent with patient and on the chart (including review of chart, obtaining history, exam, reviewing outside data, placing orders, documenting exam and treatment plan, and counseling patient) on [DATE]. Quality VTE Deep Vein Thrombosis/Pulmonary Embolism Present on Admission: No IH PROFEE Software Development Intern Document charge(s): Yes
[2024-08-20 09:50] LABS: Alanine Aminotransferase 17 IU/L (<35); Albumin 2.2 g/dL (3.5-5.0); Albumin Globulin Ratio 0.8 (1.0-2.8); Alkaline Phosphatase 160 U/L (38-126); Aspartate Aminotransferase 34 IU/L (14-36); Bilirubin Total 0.8 mg/dL (0.2-1.3); Blood Urea Nitrogen 20 mg/dL (7-17); Calcium 8.3 mg/dL (8.4-10.2); Carbon Dioxide 19 mmol/L (22-32); Chloride 116 mmol/L (98-107); Estimated Glomerular Filt Rate > 60 mL/min (>60); Globulin 2.6 g/dL (1.7-4.1); Glucose 88 mg/dL (70-100); HEMOLYSIS 24 (0-50); Sodium 141 mmol/L (137-145); Total Protein 4.8 g/dL (6.3-8.2)
[2024-08-20 09:57] LABS: MRSA (Nasal) PCR NOT DETECTED (Not Detect)
--- NOTE | 2024-08-20 11:48 | CM.DANOTE ---
Patient is a 54 yo female who was admitted INPT Status on 08/19/24 for Acute Encephalopathy and Poss GI Bleed. Pt has LESLEY CARRERO for insurance and her PCP is Dr. Barry Em at [facility]. EMR was reviewed. Per MD, pt with hx of ETOH abuse and withdrawals, hx of hashimotos, anxiety and depression. Per Surgeon Consult, no need to scope and if H&H stable with next labs then could be stable for discharge later today. Pt last admitted 01/03/24 for Abd Pain/AMS and was able to d/c home with resources for [facility] supports and tx and pt did not follow up on these resources. SW met bedside with pt and explained role and pt confirms she still lives at home in [place] in a condo with her spouse, who is a intermodal customer service ETOH drinker, and also her elderly mother that they are the caregiver for. Pt and family had been referred to Emerson Torres [facility] Sulfuric Acid Plant Operator as clinical data management director have been to pt's house every day for the past 2 weeks for herself and spouse. Home in disrepair (rotten food out with bugs/maggots and lots of alcohol bottles) and APS report was made. SW left ms for Emerson Torres to update him and confirm they remain on his caseload. Pt denies her own ETOH use or abuse of prescriptions medications and UDS+ benzos. Pt was prescribed Clonazepam since 2004 and most recent Psychiatrist Dr. Gomez attempted to discontinue this medication. Pt no longer established with Psychiatrist and her PCP prescribes her anxiety medication. Pt typically ambulates with a FWW or a w/c for longer distances. Pt has a hx of gastric sleeve. Pt confirms her preference is to discharge home today if stable and SW attempting to get pt and spouse in the same hospital room for more lengthy discussion about discharge planning needs and concerns. ROMARIO Steele Discharge Planning/Care Management CM Discharge Assessment Start: 08/20/24 11:46 Freq: Status: Active Protocol: Document 08/20/24 11:46 BF (Rec: 08/20/24 11:48 BF [id number]) Discharge Planning Assessment Assigned Dishwashing Machine Operator ROMARIO Abel DPOA/Assigned Designee Name none, informally spouse Advance Directives? No Advance Directives on File No History Provided By Patient,Significant Other, Medical Record Has Patient been admitted in last 30 No days? Prior Living Arrangements House Household Members spouse,family Comment lives with spouse and mother Type of transporation used prior to Relies on Others admit Independent with ADL's No Is patient alert and oriented? Yes: mostly Needs Assistance With Meal Prep,Managing Medications ,Home Chores / Shopping Caregiver for Another Yes: mother at home DME Already Rented / Owned FWW / Walker,Cane Barriers to Discharge Yes Comment Pt in denial about ETOH abuse and benzos and has been given resources Discharge Plan Home Transportation Arrangement Might need taxi as spouse currently admitted as well Additional Comment Previously given ETOH resources, currently denying any ETOH abuse Whiteboard Updated in Patient Room with Yes name and ext. # of Dishwashing Machine Operator Review Status In Process Please Provide Date Initial DC 08/20/24 Assessment Was Performed Next Review Type Continued Stay Review
[2024-08-20 14:16] LABS: Hematocrit 36.2 % (36-46); Hemoglobin 11.8 g/dL (12.0-16.0)
--- NOTE | 2024-08-20 14:35 | P.DS_ITS ---
History of Present Illness History of Present Illness Date Patient Seen: 08/20/24 Chief complaint: AMS/Lethargy Narrative: 54-year-old female with past medical history of alcohol abuse, chronic anemia, anxiety, asthma, depression and hypothyroidism presents with confusion. Of note the patient is confused and cannot provide any reliable history. The patient was found by EMS in a confused state at her home. It was reported that the patient was admitted for alcohol issues in the past. Currently the patient knows her name and knows that she is in the hospital but cannot give any reliable history and is confused about the date. In the emergency room, labs shows a hemoglobin of 6.2 previously in December 2023 it was 8.3. Sodium 136 normal lactate TSH of 7.5 UA shows some bacteria some WBC urine tox was positive for meth benzodiazepine. Chest x-ray was clear CT head shows no acute pathology CT abdomen and pelvic is also done which shows moderate colitis that could be acute or chronic. The patient was given IV ceftriaxone and IV fluid. Guaiac study was positive for brown stool. Patient had 2 units of packed red blood cells ordered and general surgery consulted. Discharge Providers Provider Date of admission: 08/19/24 23:54 Discharge Date: 08/20/24 Primary care physician: Barry Em MD Consults: 08/19/24 23:37 Consult to Physician Stat Comment: Consulting Provider: Yaya Tyson Reason for consultation: GI bleed Has provider been notified: Yes 08/19/24 23:40 Consult to Physical Therapy Evaluate & Treat Comment: Physician Instructions: Evaluate and Treat Discharge provider: Josue Polk, Exam Vital Signs (past 8 hours): - 08/20/24 07:23 08/20/24 08:00 08/20/24 08:00 Temperature 98.2 F 97.9 F 98.1 F Pulse Rate 90 91 H Respiratory Rate 14 13 Blood Pressure Pulse Oximetry 100 100 08/20/24 08:00 08/20/24 09:00 08/20/24 09:00 Temperature 98.1 F Pulse Rate 86 Respiratory Rate 16 Blood Pressure 148/94 H 130/90 Pulse Oximetry 99 08/20/24 10:00 08/20/24 10:00 08/20/24 11:00 Temperature 98.1 F Pulse Rate 89 Respiratory Rate 13 Blood Pressure 120/89 117/84 Pulse Oximetry 99 08/20/24 11:00 08/20/24 12:00 08/20/24 12:00 Temperature 97.9 F 97.9 F Pulse Rate 90 90 Respiratory Rate 17 14 Blood Pressure 120/85 Pulse Oximetry 98 99 08/20/24 12:00 08/20/24 13:00 08/20/24 13:00 Temperature 97.6 F Pulse Rate 93 H Respiratory Rate 10 L Blood Pressure 133/90 Pulse Oximetry 08/20/24 14:00 Temperature Pulse Rate 93 H Respiratory Rate 26 H Blood Pressure Pulse Oximetry Oxygen Delivery Method Room Air Objective Labs 08/20/24 13:59 08/20/24 08:20 Labs: Laboratory Results - last 24 hr 08/19/24 08/19/24 08/19/24 15:30 15:50 16:31 WBC 6.6 RBC 3.41 L Hgb 7.6 L Hct 23.7 L MCV 69.6 L MCH 22.2 L MCHC 31.9 RDW 25.4 H Plt Count 256 Neut % (Auto) Not Reportable Lymph % (Auto) Not Reportable [place] % (Auto) Not Reportable Eos % (Auto) Not Reportable Baso % (Auto) Not Reportable Neut # (Auto) Lymph # (Auto) Not Reportable [place] # (Auto) Not Reportable Eos # (Auto) Baso # (Auto) Not Reportable Total Counted 100 Seg Neutrophils % 20.0 L Lymphocytes % (Manual) 79.0 H Eosinophils % (Manual) 1.0 L Neutrophils # (Manual) 1320 L RBC Morphology See below Poikilocytosis Anisocytosis 3+ H Microcytosis 2+ H Target Cells 3+ H Ovalocytes 1+ H PT 10.1 INR 0.9 APTT 35 VBG pH VBG pCO2 VBG pO2 VBG HCO3 VBG Total CO2 VBG O2 Saturation VBG Base Excess FiO2 % Sodium 136 L Potassium 3.7 Chloride 106 Carbon Dioxide 22 BUN 24 H Creatinine 0.74 Estimated GFR > 60 BUN/Creatinine Ratio 32.4 H Glucose 85 Lactate 1.6 Calcium 9.1 Total Bilirubin 0.8 AST 39 H ALT 22 Alkaline Phosphatase 221 H Ammonia Total Protein 5.8 L Albumin 2.8 L Globulin 3.0 Albumin/Globulin Ratio 0.9 L Lipase 112 Procalcitonin 0.239 TSH 7.55 H Free T4 0.72 L Urine RBC None seen Urine WBC 5-10/hpf H Ur Squamous Epith Cells 0-1 /hpf Urine Bacteria Few (2-10) H Ur Culture Indicated? Specimen cultured Vol Urine Centrifuged 10ml (spun) Nasal Screen MRSA (PCR) U Opiates 300ng/mL cut Negative Ur Oxycodone Screen Negative Urine Methadone Screen Negative Ur Barbiturates Screen Negative U Tricyclic Antidepress Negative Ur Phencyclidine Scrn Negative Ur Amphetamines Screen Negative U Methamphetamines Scrn Negative Ur MDMA Scrn (Ecstasy) Negative U Benzodiazepines Scrn Positive H Urine Cocaine Screen Negative U Marijuana (THC) Screen Negative Urine pH Normal Urine Specific [place] Normal Ethyl Alcohol < 10 Ur Creatinine Normal Blood Type A Positive Antibody Screen Negative Crossmatch See Detail 08/19/24 08/20/24 08/20/24 20:55 00:09 02:40 WBC RBC Hgb 6.2 L* Hct 19.4 L* MCV MCH MCHC RDW Plt Count Neut % (Auto) Lymph % (Auto) [place] % (Auto) Eos % (Auto) Baso % (Auto) Neut # (Auto) Lymph # (Auto) [place] # (Auto) Eos # (Auto) Baso # (Auto) Total Counted Seg Neutrophils % Lymphocytes % (Manual) Eosinophils % (Manual) Neutrophils # (Manual) RBC Morphology Poikilocytosis Anisocytosis Microcytosis Target Cells Ovalocytes PT INR APTT VBG pH 7.41 VBG pCO2 37.5 L VBG pO2 29 L VBG HCO3 24 VBG Total CO2 23 L VBG O2 Saturation 56 L VBG Base Excess -0.8 L FiO2 % 21.0 % Sodium Potassium Chloride Carbon Dioxide BUN Creatinine Estimated GFR BUN/Creatinine Ratio Glucose Lactate Calcium Total Bilirubin AST ALT Alkaline Phosphatase Ammonia < 9 L Total Protein Albumin Globulin Albumin/Globulin Ratio Lipase Procalcitonin TSH Free T4 Urine RBC Urine WBC Ur Squamous Epith Cells Urine Bacteria Ur Culture Indicated? Vol Urine Centrifuged Nasal Screen MRSA (PCR) Not detected U Opiates 300ng/mL cut Ur Oxycodone Screen Urine Methadone Screen Ur Barbiturates Screen U Tricyclic Antidepress Ur Phencyclidine Scrn Ur Amphetamines Screen U Methamphetamines Scrn Ur MDMA Scrn (Ecstasy) U Benzodiazepines Scrn Urine Cocaine Screen U Marijuana (THC) Screen Urine pH Urine Specific [place] Ethyl Alcohol Ur Creatinine Blood Type Antibody Screen Crossmatch 08/20/24 08/20/24 08/20/24 06:25 08:20 13:59 WBC 7.3 RBC 4.73 Hgb 11.8 L 11.8 L Hct 35.9 L 36.2 MCV 75.9 L D MCH 24.9 L MCHC 32.8 RDW 21.7 H Plt Count 148 L Neut % (Auto) 71.8 Lymph % (Auto) 24.2 L [place] % (Auto) 2.8 L Eos % (Auto) 0.8 L Baso % (Auto) 0.4 Neut # (Auto) 5200 Lymph # (Auto) 1800 [place] # (Auto) 200 Eos # (Auto) 100 Baso # (Auto) 0 Total Counted Seg Neutrophils % Lymphocytes % (Manual) Eosinophils % (Manual) Neutrophils # (Manual) RBC Morphology See below Poikilocytosis 1+ H Anisocytosis 2+ H Microcytosis 1+ H Target Cells 1+ H D Ovalocytes PT INR APTT VBG pH VBG pCO2 VBG pO2 VBG HCO3 VBG Total CO2 VBG O2 Saturation VBG Base Excess FiO2 % Sodium 141 Potassium 4.0 Chloride 116 H Carbon Dioxide 19 L BUN 20 H Creatinine 0.74 Estimated GFR > 60 BUN/Creatinine Ratio 27.0 H Glucose 88 Lactate Calcium 8.3 L Total Bilirubin 0.8 AST 34 ALT 17 Alkaline Phosphatase 160 H Ammonia Total Protein 4.8 L Albumin 2.2 L Globulin 2.6 Albumin/Globulin Ratio 0.8 L Lipase Procalcitonin TSH Free T4 Urine RBC Urine WBC Ur Squamous Epith Cells Urine Bacteria Ur Culture Indicated? Vol Urine Centrifuged Nasal Screen MRSA (PCR) U Opiates 300ng/mL cut Ur Oxycodone Screen Urine Methadone Screen Ur Barbiturates Screen U Tricyclic Antidepress Ur Phencyclidine Scrn Ur Amphetamines Screen U Methamphetamines Scrn Ur MDMA Scrn (Ecstasy) U Benzodiazepines Scrn Urine Cocaine Screen U Marijuana (THC) Screen Urine pH Urine Specific [place] Ethyl Alcohol Ur Creatinine Blood Type Antibody Screen Crossmatch [facility] Medical History (Updated 08/19/24 @ 23:38 by Estela Romero DO) Amenorrhea Neuropathy Chronic venous insufficiency Obstructive sleep apnea (Unknown) GERD (gastroesophageal reflux disease) (Unknown) Allergy (Unknown) Restless leg syndrome (2015) Anxiety (1989) Shoulder pain (Unknown) Foot pain (2003) Chronic back pain (Unknown) Vertigo (1979) Painful menstrual periods (Unknown) Heavy menses (Unknown) IBS (irritable bowel syndrome) (1985) Surgical History 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) Hx of sinus surgery (2011) History of removal of laparoscopic gastric banding device (2014) Hx of laparoscopic gastric banding (2011) Family History Grandmother Cancer Mental health problem Mother Age: 76 Mental health disorder Sister Age: 58 Heart disease Hypertension High cholesterol Mental health problem Asthma COPD (chronic obstructive pulmonary disease) Social History household members: spouse and family Smoking Status: Current every day smoker Tobacco: How many years used: 10 second hand exposure: No alcohol intake: current substance use type: does not use Discharge Plan Discharge orders & Medications Prescriptions: No Action naproxen sodium 220 mg capsule 220 mg PO BID PRN (Reason: Pain, Mild) albuterol sulfate 90 mcg/actuation aerosol powdr breath activated 2 puff INHALATION Q4H PRN (Reason: shortness of breath or wheezing) Qty: 1 0RF Patient Comments: few weeks Rx Instructions: administer with spacer escitalopram oxalate 20 mg tablet 20 mg PO DAILY Qty: 90 1RF clonazepam 0.5 mg tablet 0.5 mg PO BID PRN (Reason: Anxiety) Qty: 60 0RF Hold Instructions: per provider Rx Instructions: Do not take with alcohol. bupropion HCl 150 mg tablet extended release 24 hr 300 mg PO QAM Qty: 60 2RF propranolol 20 mg tablet 20 mg PO TID PRN (Reason: Anxiety) Qty: 90 2RF Patient Comments: Takes for PTSD estradiol 0.5 mg tablet 0.5 mg PO DAILY Qty: 90 3RF progesterone micronized [Prometrium] 100 mg capsule 100 mg PO QAM Qty: 90 3RF baclofen 20 mg tablet 20 mg PO TID PRN (Reason: Muscle Spasm) 7 Days Qty: 20 0RF dicyclomine 10 mg capsule 10 mg PO 4XD PRN (Reason: IBS) ondansetron HCl 8 mg tablet 8 mg PO DAILY PRN (Reason: Nausea And Vomiting) hydroxyzine HCl 50 mg tablet 50 mg PO BEDTIME levothyroxine 75 mcg tablet 75 mcg PO DAILY Follow up/Referrals: Barry Em MD [Primary Care Provider] - Discharge Data Primary Care Provider: Barry Em Quality VTE Deep Vein Thrombosis/Pulmonary Embolism Present on Admission: No
--- NOTE | 2024-08-20 16:10 | PT-IP ANOTE ---
Patient declined Physical Therapy evaluation. Pt and her nurse report no skilled Physical Therapy needs at this time. Pt has discharge orders and plans to go home.
--- NOTE | 2024-08-20 17:14 | P.PN_ITS ---
Subjective Subjective Date Patient Seen: 08/20/24 Interval history: 54 F admitted with encephalopathy and possible GI bleed. Her encephalopathy has resolved at this point. CIWA scores of 0 per nursing staff today. Repeat H/h stable, patient without dark stools but had guaiac positive per ER report. Patient wanted to go home, was discharged, then became more agitated when her clothes could not be located. She complained of difficulty walking at that point, she had refused PT evaluation earlier today. Her IV had been disconnected but was no longer on any IV medications, okay to discontinue for now unless over change clinically overnight. Exam Vital Signs (past 8 hours): - 08/20/24 10:00 08/20/24 10:00 08/20/24 11:00 Temperature 98.1 F Pulse Rate 89 Respiratory Rate 13 Blood Pressure 120/89 117/84 Pulse Oximetry 99 08/20/24 11:00 08/20/24 12:00 08/20/24 12:00 Temperature 97.9 F 97.9 F Pulse Rate 90 90 Respiratory Rate 17 14 Blood Pressure 120/85 Pulse Oximetry 98 99 08/20/24 12:00 08/20/24 13:00 08/20/24 13:00 Temperature 97.6 F Pulse Rate 93 H Respiratory Rate 10 L Blood Pressure 133/90 Pulse Oximetry 08/20/24 14:00 Temperature Pulse Rate 93 H Respiratory Rate 26 H Blood Pressure Pulse Oximetry Oxygen Delivery Method Room Air Narrative Exam Narrative: Physical Exam: GENERAL: The patient is not in any acute distressed. confused HEENT: Nonicteric sclerae, PERRLA, EOMI. Oropharynx clear. Moist mucous membranes. Conjunctivae appear well perfused. HEART: Regular rate and rhythm without murmurs. No lower extremities edema. LUNGS: Clear to auscultation bilaterally. No wheezing, crackles or rhonchi ABDOMEN: Soft, positive bowel sounds, nontender. SKIN: No rash, no excessive bruising, petechiae, or purpura. NEUROLOGIC: AxO to . Cranial nerves II-XII intact without motor/sensory deficit. Objective Labs 08/20/24 13:59 08/20/24 08:20 Labs: Laboratory Results - last 24 hr 08/19/24 08/19/24 08/19/24 15:30 15:50 16:31 WBC RBC Hgb Hct MCV MCH MCHC RDW Plt Count Neut % (Auto) Lymph % (Auto) [place] % (Auto) Eos % (Auto) Baso % (Auto) Neut # (Auto) Lymph # (Auto) [place] # (Auto) Eos # (Auto) Baso # (Auto) RBC Morphology Poikilocytosis Anisocytosis Microcytosis Target Cells VBG pH VBG pCO2 VBG pO2 VBG HCO3 VBG Total CO2 VBG O2 Saturation VBG Base Excess FiO2 % Sodium Potassium Chloride Carbon Dioxide BUN Creatinine Estimated GFR BUN/Creatinine Ratio Glucose Calcium Total Bilirubin AST ALT Alkaline Phosphatase Ammonia Total Protein Albumin Globulin Albumin/Globulin Ratio TSH 7.55 H Free T4 0.72 L Urine RBC None seen Urine WBC 5-10/hpf H Ur Squamous Epith Cells 0-1 /hpf Urine Bacteria Few (2-10) H Ur Culture Indicated? Specimen cultured Vol Urine Centrifuged 10ml (spun) Nasal Screen MRSA (PCR) U Opiates 300ng/mL cut Negative Ur Oxycodone Screen Negative Urine Methadone Screen Negative Ur Barbiturates Screen Negative U Tricyclic Antidepress Negative Ur Phencyclidine Scrn Negative Ur Amphetamines Screen Negative U Methamphetamines Scrn Negative Ur MDMA Scrn (Ecstasy) Negative U Benzodiazepines Scrn Positive H Urine Cocaine Screen Negative U Marijuana (THC) Screen Negative Urine pH Normal Urine Specific [place] Normal Ethyl Alcohol < 10 Ur Creatinine Normal Blood Type A Positive Antibody Screen Negative Crossmatch See Detail 08/19/24 08/20/24 08/20/24 20:55 00:09 02:40 WBC RBC Hgb 6.2 L* Hct 19.4 L* MCV MCH MCHC RDW Plt Count Neut % (Auto) Lymph % (Auto) [place] % (Auto) Eos % (Auto) Baso % (Auto) Neut # (Auto) Lymph # (Auto) [place] # (Auto) Eos # (Auto) Baso # (Auto) RBC Morphology Poikilocytosis Anisocytosis Microcytosis Target Cells VBG pH 7.41 VBG pCO2 37.5 L VBG pO2 29 L VBG HCO3 24 VBG Total CO2 23 L VBG O2 Saturation 56 L VBG Base Excess -0.8 L FiO2 % 21.0 % Sodium Potassium Chloride Carbon Dioxide BUN Creatinine Estimated GFR BUN/Creatinine Ratio Glucose Calcium Total Bilirubin AST ALT Alkaline Phosphatase Ammonia < 9 L Total Protein Albumin Globulin Albumin/Globulin Ratio TSH Free T4 Urine RBC Urine WBC Ur Squamous Epith Cells Urine Bacteria Ur Culture Indicated? Vol Urine Centrifuged Nasal Screen MRSA (PCR) Not detected U Opiates 300ng/mL cut Ur Oxycodone Screen Urine Methadone Screen Ur Barbiturates Screen U Tricyclic Antidepress Ur Phencyclidine Scrn Ur Amphetamines Screen U Methamphetamines Scrn Ur MDMA Scrn (Ecstasy) U Benzodiazepines Scrn Urine Cocaine Screen U Marijuana (THC) Screen Urine pH Urine Specific [place] Ethyl Alcohol Ur Creatinine Blood Type Antibody Screen Crossmatch 08/20/24 08/20/24 08/20/24 06:25 08:20 13:59 WBC 7.3 RBC 4.73 Hgb 11.8 L 11.8 L Hct 35.9 L 36.2 MCV 75.9 L D MCH 24.9 L MCHC 32.8 RDW 21.7 H Plt Count 148 L Neut % (Auto) 71.8 Lymph % (Auto) 24.2 L [place] % (Auto) 2.8 L Eos % (Auto) 0.8 L Baso % (Auto) 0.4 Neut # (Auto) 5200 Lymph # (Auto) 1800 [place] # (Auto) 200 Eos # (Auto) 100 Baso # (Auto) 0 RBC Morphology See below Poikilocytosis 1+ H Anisocytosis 2+ H Microcytosis 1+ H Target Cells 1+ H D VBG pH VBG pCO2 VBG pO2 VBG HCO3 VBG Total CO2 VBG O2 Saturation VBG Base Excess FiO2 % Sodium 141 Potassium 4.0 Chloride 116 H Carbon Dioxide 19 L BUN 20 H Creatinine 0.74 Estimated GFR > 60 BUN/Creatinine Ratio 27.0 H Glucose 88 Calcium 8.3 L Total Bilirubin 0.8 AST 34 ALT 17 Alkaline Phosphatase 160 H Ammonia Total Protein 4.8 L Albumin 2.2 L Globulin 2.6 Albumin/Globulin Ratio 0.8 L TSH Free T4 Urine RBC Urine WBC Ur Squamous Epith Cells Urine Bacteria Ur Culture Indicated? Vol Urine Centrifuged Nasal Screen MRSA (PCR) U Opiates 300ng/mL cut Ur Oxycodone Screen Urine Methadone Screen Ur Barbiturates Screen U Tricyclic Antidepress Ur Phencyclidine Scrn Ur Amphetamines Screen U Methamphetamines Scrn Ur MDMA Scrn (Ecstasy) U Benzodiazepines Scrn Urine Cocaine Screen U Marijuana (THC) Screen Urine pH Urine Specific [place] Ethyl Alcohol Ur Creatinine Blood Type Antibody Screen Crossmatch [facility] Medical History (Updated 08/19/24 @ 23:38 by Estela Romero DO) Amenorrhea Neuropathy Chronic venous insufficiency Obstructive sleep apnea (Unknown) GERD (gastroesophageal reflux disease) (Unknown) Allergy (Unknown) Restless leg syndrome (2014) Anxiety (1989) Shoulder pain (Unknown) Foot pain (2003) Chronic back pain (Unknown) Vertigo (1979) Painful menstrual periods (Unknown) Heavy menses (Unknown) IBS (irritable bowel syndrome) (1985) Surgical History 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) Hx of sinus surgery (2011) History of removal of laparoscopic gastric banding device (2014) Hx of laparoscopic gastric banding (2011) Family History Grandmother Cancer Mental health problem Mother Age: 76 Mental health disorder Sister Age: 58 Heart disease Hypertension High cholesterol Mental health problem Asthma COPD (chronic obstructive pulmonary disease) Social History household members: spouse and family Smoking Status: Current every day smoker Tobacco: How many years used: 10 second hand exposure: No alcohol intake: current substance use type: does not use Assessment & Plan Assessment & Plan narrative: Acute, likely toxic encephalopathy, improved. - suspect toxic encephalopathy due to alcohol either intoxication or withdrawal, possibly in combination with chronic benzodiazepine use - less likely due to UTI, stop antibiotics - stool PCR if develops diarrhea - could be related to anemia with Hg <7, improved after transfusion. Alcohol withdrawal. Continue to monitor for withdrawal, no current symptoms. - PT Eval Possible GI bleed. Of note stool was brown but guaiac positive. Patient dropped from a hemoglobin of 8 and now up to 6.2. 2 units of packed red blood cells ordered in the ER with overcorrection to 11. Stable on repeat today. Continue to monitor tomorrow AM with labs - continue oral PPI BID Possible acute cystitis, improved - patient had ? + UA, negative culture. No current symptoms will stop antibiotics. Acute on chronic colitis. - seen on CT, no real clinical symptoms other than + stool. - reduce EtOH intake, counseled - monitor h/h, stool PCR if diarrhea develops. Hypothyroidism Resume home Synthroid Anxiety and depression. Resume home medications DVT prophylaxis SCDs due to concern for GI bleed. CODE STATUS full code, surrogate is patient's spouse Disposition likely home tomorrow, will watch h/h and monitor for colitis symptoms currently or recurrent bleeding given diffuse colitis on CT imaging. Patient agreeable to PT evaluation tomorrow reporting weakness with ambulation after discharge. No need for ICU care, okay for floor care. Time-Based Coding :: [TOTAL MINUTES] spent with patient and on the chart (including review of chart, obtaining history, exam, reviewing outside data, placing orders, documenting exam and treatment plan, and counseling patient) on [DATE]. Quality VTE Deep Vein Thrombosis/Pulmonary Embolism Present on Admission: No
--- NOTE | 2024-08-20 17:49 | PC.NURSE ---
1530 Discharge orders completed and discharge instructions given to patient. She stated that she wanted to put her clothes on and go to her spouses room (214). No personal belongings in the room, ED called and no belongings found there, EVS called to check lost and found area and none found. scrubs offered and pt refused. Demanded to remain in the hospital another night, Dr. Polk notified that pt wishes to stay and discharge cancelled. Okay to leave IV out per Dr. Polk.
[2024-08-20] MEDS: ACETAMINOPHEN 325 MG TABLET 650 MG PO (21:10)
[2024-08-20] MEDS: ONDANSETRON 4 MG ODT SL (21:10)
[2024-08-20] MEDS: PANTOPRAZOLE DR 40 MG TABLET PO (21:10)
[2024-08-21] VITALS (8 sets, daily range): BP systolic 105–120; BP diastolic 63–90; PULSE 92–103; RESP 16–24; TEMP 35.9–36.4; O2SAT 87–100
[2024-08-21] MEDS: ONDANSETRON 4 MG/2 ML INJ IV ×2 (02:14→06:12)
[2024-08-21] MEDS: SODIUM CHLORIDE 0.9% FLUSH 10 ML IV (06:13)
--- NOTE | 2024-08-21 09:10 | PC.NURSE ---
0700 - Sampson catheter not present. Completed worklist item.
--- NOTE | 2024-08-21 09:40 | PT.IIE ---
Current Diagnoses Urinary tract infection, site not specified (08/19/24) Surgical History (Last Reviewed 01/04/24 @ 08:31 by Tom Moreno MD) History of removal of laparoscopic gastric banding device (2014) Hx of laparoscopic gastric banding (2011) Hx of sinus surgery (2011) 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) Medical History (Last Updated 03/12/24 @ 10:51 by Lashonda Leone MD) Allergy (Unknown) Amenorrhea Anxiety (1989) Chronic back pain (Unknown) Chronic venous insufficiency Foot pain (2003) GERD (gastroesophageal reflux disease) (Unknown) Heavy menses (Unknown) IBS (irritable bowel syndrome) (1985) Neuropathy Obstructive sleep apnea (Unknown) Painful menstrual periods (Unknown) Restless leg syndrome (2014) Shoulder pain (Unknown) Vertigo (1979) Physical Therapy Inpatient Evaluation/Re-Eval M1 PT/OT-IP Prior Functional Status Start: 08/20/24 08:43 Freq: NEEDED Status: Active Protocol: Document 08/21/24 09:40 DLM (Rec: 08/21/24 12:14 DL [id number]) Medical Review Prior Functional Status Medical History Reviewed Yes Diet/Fluid Consistency Regular Communication WFL, hx of confusion in the past with encephalopathy Mobility and Gait Independent with occasional use of cane Activities of Daily Living and IADL's Independent with basic ADL's. Unclear what she does to manage the home vs her Spouse and her Mother Social History Household Members spouse,family Living Arrangements House Number of Floors (Floors) One Floor Number of Stairs To Enter/Railing? 5 steps with rail Home Environment Standard Height Toilet,Tub/ Shower Home Equipment Front Wheel Walker,Quad Cane, Shower Seat with Backrest,Grab Bars In Shower Additional Social History Comment Lives her her and her Mother Her is currently admitted to the hospital also. M2 PT-IP Current Condition Start: 08/20/24 08:43 Freq: NEEDED Status: Active Protocol: Document 08/21/24 09:40 DLM (Rec: 08/21/24 12:14 DLM [id number]) Physical Therapy Current Condition Current Condition Evaluation Date 08/21/24 Treatment Diagnosis encephalopathy, impaired gait/ mobility Onset Date 08/19/24 M3 PT-IP Subjective Start: 08/20/24 08:43 Freq: NEEDED Status: Active Protocol: Document 08/21/24 09:40 DLM (Rec: 08/21/24 12:14 DL [id number]) Subjective Physical Therapy Visit Type Type Initial Evaluation Visit Start Time 09:10 Visit Stop Time 09:40 Notes 30 min Number of RAILROAD COOK Visits 0 Physical Therapy Visit Comments Patient Comments She is very worried about her clothes to wear home. She does not feel well today and has been having more vomiting and dry heaves. Patient Goals she can not state Therapy Pain Assessment Pain When Pain Assessed At Rest Pain Present Pain Present Pain Reported M4 PT-IP Mobility and Gait Start: 08/20/24 08:43 Freq: NEEDED Status: Active Protocol: Document 08/21/24 09:40 DLM (Rec: 08/21/24 12:14 [facility] [id number]) PT-Bed Mobility Assessment Rolling Type of Rolling Roll to Right,Roll to Left Level of Assist Independent Supine to Sit Supine to Sit Independent Sit to Supine Sit to Supine Independent PT-Transfer Assessment Comments Mobility Comments Pt sat up on the edge of the bed this visit but reported not feeling well and unable to do more. She was very slow and needed encouragement to sit up. Pt returned to bed to rest. Lab arrived for blood draw. Gait Assessment Comments Gait Comments unable this visit PT-Balance Assessment Sitting Balance and Reactions Static Sitting Balance Ability Good Dynamic Sitting Balance Ability Good Standing Balance and Reactions Device Used unable to test Comments Other Balance Tests/Deviations/Treatment pt only sat edge of bed : M5 PT-IP Objective Assessments Start: 08/20/24 08:43 Freq: NEEDED Status: Active Protocol: Document 08/21/24 09:40 DLM (Rec: 08/21/24 12:14 [facility] [id number]) Orientation Orientation/Cognition Level of Alertness Alert Orientation Name,Place,Situation Safety Awareness Decreased Safety Awareness Comments unable to fully assess orientation, pt very focused on not feeling well and not having her clothes Gross Range of Motion Upper Extremity ROM Assessment Within Functional Limits Lower Extremity ROM Assessment Within Functional Limits Strength Comments Strength Comments unable to assess strength, pt moving all extremities functionally, she is nauseated Coordination Assessment Gross Coordination Gross Coordination Impaired Assessment Coordination Comments mild decrease in generalized coordination, bradykinetic also today Sensation Assessment Sensation Gross Sensation Right UE Impaired,Left UE Impaired,Right LE Impaired, Left LE Impaired Sensation Description Paresthesia,Numbness,Pain Comments Sensation Comments she describes numnbess and tingling in hands and feet with intermittent pain in feet Muscle Tone Muscle Tone WNL Yes M6 PT-IP Treatment Start: 08/20/24 08:43 Freq: NEEDED Status: Active Protocol: Document 08/21/24 09:40 DLM (Rec: 08/21/24 12:14 DLM [id number]) Physical Therapy Treatment Education Education Provided Safety M7 PT-IP Assessment and Plan Start: 08/20/24 08:43 Freq: NEEDED Status: Active Protocol: Document 08/21/24 09:40 DLM (Rec: 08/21/24 12:14 DLM [id number]) PT Summary Assessment and Plan Potential Rehabilitation Potential Fair Status of Condition at Evaluation Evolving Summary Impairments Pain,Transfers,Gait,Activity Tolerance Assessment Summary Rebekah is alert and resting in bed. She was admitted with AMS and encephalopathy. She had planned to discharge yesterday but it was cancelled last night. Pt reports not feeling well today with increased nausea and vomiting. She was able to sit up on edge of bed but declined to do more. She is not safe to discharge home at her current level but will continue to assess as she is feeling better. Her goal is to discharge home. Will progress her back to functional gait as able. Goals Bed Mobility Goal Independent Transfer Goal Standby Assistance,Front Wheeled Walker Gait Goal Standby Assistance,Front Wheel Walker Gait Distance 150 feet Other Goals up/down 5 steps with rail and SBA Days to Meet Goals 5 Frequency of Treatment Frequency Of Treatment Once a Day Treatment Plan Physical Therapy Treatment Plan Bed Mobility Training,Transfer Training,Gait Training, Therapeutic Exercise,Balance Retraining,Discharge Planning, Neuromuscular Re-ed Other Recommendations and Next Treatment continue to assess mobility as Focus she can increase her activity Precautions Other Precautions fall risk, frequent vomiting Recommendations To Nursing Amount of Assist Needed 1 Person Assist Discharge Recommendations Other Discharge Recommendations continue to assess as pt can participate more Transportation Needs at Discharge Private Vehicle - PT assist 1P
[2024-08-21] MEDS: PROMETHAZINE 25 MG TABLET 12.5 MG PO ×2 (09:46→22:19)
[2024-08-21] MEDS: DICYCLOMINE 10 MG CAPSULE PO ×2 (09:46→21:53)
[2024-08-21] MEDS: estradioL 1 MG TABLET 0.5 MG PO (09:46)
[2024-08-21] MEDS: clonazePAM 0.5 MG TABLET PO ×2 (09:46→21:53)
[2024-08-21] MEDS: ESCITALOPRAM 10 MG TABLET 20 MG PO (09:47)
[2024-08-21] MEDS: SODIUM CHLORIDE 0.9% 1,000 ML 100 ML IV ×2 (09:48→21:21)
[2024-08-21] MEDS: SIMETHICONE 80 MG TABLET PO ×2 (11:29→22:19)
--- NOTE | 2024-08-21 11:34 | DIET.CONS ---
Dietary Consultation Note Admission Date: 08/19/2024 23:54 Assessment: 54 y F admitted for encephalopathy. Screened for low MNA. Pt with CRTS upon attempted visit, EMR reviewed. Pt experiencing some nausea and abd pain r/t colitis. PMH of gastric sleeve. Ht: 149.86 cm Wt: 45.5 kg BMI: 20.2 UBW: 50 kg on 01/03/24 (-9% weight loss within 7 months, non-severe) Last BM: 08/20/24 (08/20/24 15:48) MNA: 9 Santosh Score: 18 Diet: 08/20/24 Lunch General (Regular) Diet Diet Modifications: Food Texture: Level 7 - Regular Liquid Consistency: Level 0 - Thin Labs: RBC 4.73 X10^6/uL (4.0-5.2) 08/20/24 06:25 Hgb 11.8 g/dL (12.0-16.0) L 08/20/24 13:59 Hct 36.2 % (36-46) 08/20/24 13:59 Creatinine 0.74 mg/dL (0.52-1.04) 08/20/24 08:20 Lactate 1.6 mmol/L (0.7-2.1) 08/19/24 15:50 Nutrition Diagnosis: Unintentional weight loss r/t inadequate oral intake aeb 9% weight loss in 7 months, non-severe Interventions: -Trying different ONS/smoothie options or khmer yogurt with meals, coordination with unit host. EER: 1400 kcals (30 kcal/kg) 50 g protein (1g/kg) Monitoring/Evaluations: PO intakes, ons tolerance Electronically Signed by: Daylin Aragon 08/21/24 11:34 Clinical Dietitian [address] [address]
[2024-08-21 13:09] LABS: Mean Corpuscular HGB Conc 33.3 % (30-36); Mean Corpuscular Hemoglobin 24.7 PG (26-34); Mean Corpuscular Volume 74.4 fL (80-100); Platelet Count 213 X10^3/uL (150-400); Red Blood Cell Count 4.83 X10^6/uL (4.0-5.2); Red Cell Distribution Width 21.1 % (11.6-14.8); White Blood Cell Count 12.3 X10^3/uL (4.5-11.0)
[2024-08-21 13:10] LABS: Add Manual Diff / Slide Review YES
--- NOTE | 2024-08-21 13:19 | CM.DPC ---
DCP Cont: Per MD, pt with increased nausea, abdominal pain, tachy and placed back on IV fluids and could be from pt's colitis. Per PT, pt fearful of falling while standing today and only willing to sit edge of bed. Took RN assist to get pt into w/c and down to her spouse's room who is also admitted. JUANJO met bedside with pt, spouse who is still admitted as well for medical tx, and MD. SW inquired with pt and spouse about the state of their home and they confirm their plan has been to hire someone to come in and clean as they know it's become a total dump and shit hole lately and they are embarrassed by how they have let things go. Pt denies any need for ETOH tx for herself but does acknowledge her struggle with anxiety and at times self medicating and might be agreeable to attending [facility] appointment with her for mental health treatment/possible MAT tx. Pt called her mother at home who is managing well and she confirms her purse is at home and was not brought in EMS as spouse thought. SW called [facility] and left msg for Pinky, orthoptist for ETOH assessments and faxed clinicals to review in attempt to set pt up for success of sobriety. Pt hopeful to d/c home today if spouse is stable for discharge and they likely will need taxi transport if pt can safely get into taxi or spouse to d/c home and get their vehicle to transport pt. Plan: SW to follow for possible d/c home today vs tomorrow and outpt f/u with [facility] if pt voluntary after discharge. ROMARIO Steele
[2024-08-21 13:21] LABS: Alanine Aminotransferase 26 IU/L (<35); Albumin 2.9 g/dL (3.5-5.0); Alkaline Phosphatase 192 U/L (38-126); Aspartate Aminotransferase 46 IU/L (14-36); BUN Creatinine Ratio 28.8 (6-22); Bilirubin Total 1.1 mg/dL (0.2-1.3); Blood Urea Nitrogen 19 mg/dL (7-17); Calcium 8.9 mg/dL (8.4-10.2); Carbon Dioxide 17 mmol/L (22-32); Chloride 111 mmol/L (98-107); Estimated Glomerular Filt Rate > 60 mL/min (>60); Glucose 81 mg/dL (70-100); HEMOLYSIS < 15 (0-50); Potassium 3.2 mmol/L (3.4-5.1); Sodium 137 mmol/L (137-145); Total Protein 5.9 g/dL (6.3-8.2)
[2024-08-21 13:40] LABS: Anisocytosis 3+; Microcytosis 1+; Target Cells 1+; Total Cells Counted 100
[2024-08-21 13:41] LABS: Tear Drop Cells 1+
[2024-08-21 13:54] LABS: Neutrophils Absolute Manual 8610 /uL (3000-5900)
[2024-08-21] MEDS: POTASSIUM CHLORIDE 20 MEQ TAB 40 MEQ PO (17:02)
--- NOTE | 2024-08-21 21:41 | P.PN_ITS ---
Subjective Subjective Interval history: 54-year-old female with alcohol dependence, chronic anemia, chronic anxiety, asthma, depression, and hypothyroidism who was admitted with acute encephalopathy, alcohol withdrawal, acute on chronic colitis, and urinary tract infection. Patient complains of feeling poorly today. She has been dry heaving this morning. She complains of a band of discomfort across her abdomen. She states she was able to eat last evening, but sometime thereafter, she developed nausea. She has had 2 episodes of dry heaving overnight. She has had some Zofran which did not appear to resolve her nausea. She reports a history of a gastric sleeve procedure in the past. Exam Vital Signs (past 8 hours): - 08/21/24 16:00 08/21/24 16:00 08/21/24 16:32 Temperature 97.6 F Pulse Rate Respiratory Rate 20 Blood Pressure 105/83 Pulse Oximetry 08/21/24 16:32 Temperature Pulse Rate 99 H Respiratory Rate Blood Pressure Pulse Oximetry 98 Oxygen Delivery Method Room Air Oxygen Flow Rate 0 Narrative Exam Narrative: GEN: Disheveled chronically ill appearing female, drowsy but oriented x 3, NAD HEENT:NC, Face symmetric CHEST: Respiratory excursions symmetric, CTAB CV: RRR, no M/R/G ABD: Soft, NT/ND, BT present in all 4 quadrants, no organomegaly or masses EXTR: warm, well perfused, no C/C/E SKIN: warm and dry, no rash NEURO: Drowsy but oriented x 3, nonfocal Objective Labs 08/21/24 12:56 08/21/24 12:56 Labs: Laboratory Results - last 24 hr 08/21/24 12:56 WBC 12.3 H D RBC 4.83 Hgb 12.0 Hct 36.0 MCV 74.4 L MCH 24.7 L MCHC 33.3 RDW 21.1 H Plt Count 213 Neut % (Auto) Not Reportable Lymph % (Auto) Not Reportable [place] % (Auto) Not Reportable Eos % (Auto) Not Reportable Baso % (Auto) Not Reportable Lymph # (Auto) Not Reportable [place] # (Auto) Not Reportable Baso # (Auto) Not Reportable Total Counted 100 Seg Neutrophils % 70.0 D Lymphocytes % (Manual) 27.0 Monocytes % (Manual) 2.0 Eosinophils % (Manual) 1.0 L Neutrophils # (Manual) 8610 H RBC Morphology See below Anisocytosis 3+ H Microcytosis 1+ H Target Cells 1+ H Tear Drop Cells 1+ H Sodium 137 Potassium 3.2 L Chloride 111 H Carbon Dioxide 17 L BUN 19 H Creatinine 0.66 Estimated GFR > 60 BUN/Creatinine Ratio 28.8 H Glucose 81 Calcium 8.9 Magnesium 2.0 Total Bilirubin 1.1 AST 46 H ALT 26 Alkaline Phosphatase 192 H Total Protein 5.9 L Albumin 2.9 L Globulin 3.0 Albumin/Globulin Ratio 1.0 PFS Medical History (Updated 08/19/24 @ 23:38 by Estela Romero DO) Amenorrhea Neuropathy Chronic venous insufficiency Obstructive sleep apnea (Unknown) GERD (gastroesophageal reflux disease) (Unknown) Allergy (Unknown) Restless leg syndrome (2014) Anxiety (1989) Shoulder pain (Unknown) Foot pain (2003) Chronic back pain (Unknown) Vertigo (1979) Painful menstrual periods (Unknown) Heavy menses (Unknown) IBS (irritable bowel syndrome) (1985) Surgical History 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) Hx of sinus surgery (2011) History of removal of laparoscopic gastric banding device (2014) Hx of laparoscopic gastric banding (2011) Family History Grandmother Cancer Mental health problem Mother Age: 76 Mental health disorder Sister Age: 58 Heart disease Hypertension High cholesterol Mental health problem Asthma COPD (chronic obstructive pulmonary disease) Social History household members: spouse and family Smoking Status: Current every day smoker Tobacco: How many years used: 10 second hand exposure: No alcohol intake: current substance use type: does not use Assessment & Plan Assessment & Plan narrative: 1. Nausea and vomiting Will resume IV fluids, add oral Phenergan as needed for nausea. Continue Zofran. Symptoms could be secondary to the UTI or colitis. 2. UTI, Gram-negative smith Await culture sensitivities. For unclear reasons, Rocephin was discontinued last evening. Will resume Rocephin. 3. Colitis She did have 1 bowel movement last night but none since. She describes it as large but not diarrheal. Hemoglobin is stable. No lower abdominal pain. 4. Alcohol dependence No symptoms or signs of withdrawal at this time. 5. Leukocytosis White count is 12.3 today. Will monitor. 6. Mild metabolic acidosis As above, we will resume IV fluids 7. Hypokalemia Mild. Pharmacy to manage electrolyte replacement Code status Full Prophylaxis Low Angelica score Disposition Pending Time-Based Coding :: [TOTAL MINUTES] spent with patient and on the chart (including review of chart, obtaining history, exam, reviewing outside data, placing orders, documenting exam and treatment plan, and counseling patient) on [DATE]. Quality VTE Deep Vein Thrombosis/Pulmonary Embolism Present on Admission: No
[2024-08-21] MEDS: ACETAMINOPHEN 325 MG TABLET 650 MG PO (21:53)
[2024-08-21] MEDS: cefTRIAXone 1,000 MG in SODIUM CHLORIDE 0.9% 100 ML 200 MG IV (21:56)
[2024-08-21] MEDS: PANTOPRAZOLE DR 40 MG TABLET PO (21:57)
[2024-08-22] VITALS (24 sets, daily range): BP systolic 114–117; BP diastolic 78–92; PULSE 97–107; RESP 11–40; TEMP 36.1–36.9; O2SAT 100
[2024-08-22 05:07] LABS: Hematocrit 38.8 % (36-46); Hemoglobin 12.7 g/dL (12.0-16.0); Mean Corpuscular HGB Conc 32.7 % (30-36); Mean Corpuscular Hemoglobin 24.9 PG (26-34); Mean Corpuscular Volume 75.9 fL (80-100); Platelet Count 224 X10^3/uL (150-400); Red Blood Cell Count 5.11 X10^6/uL (4.0-5.2); Red Cell Distribution Width 21.4 % (11.6-14.8); White Blood Cell Count 9.7 X10^3/uL (4.5-11.0)
[2024-08-22 05:13] LABS: Add Manual Diff / Slide Review YES
[2024-08-22 05:20] LABS: Alanine Aminotransferase 26 IU/L (<35); Albumin 3.4 g/dL (3.5-5.0); Alkaline Phosphatase 212 U/L (38-126); Aspartate Aminotransferase 44 IU/L (14-36); BUN Creatinine Ratio 23.1 (6-22); Bilirubin Total 0.8 mg/dL (0.2-1.3); Blood Urea Nitrogen 15 mg/dL (7-17); Calcium 8.9 mg/dL (8.4-10.2); Carbon Dioxide 17 mmol/L (22-32); Chloride 110 mmol/L (98-107); Estimated Glomerular Filt Rate > 60 mL/min (>60); Globulin 3.5 g/dL (1.7-4.1); Glucose 77 mg/dL (70-100); HEMOLYSIS < 15 (0-50); Magnesium 1.7 mg/dL (1.6-2.3); Sodium 137 mmol/L (137-145); Total Protein 6.9 g/dL (6.3-8.2)
[2024-08-22 05:44] LABS: Potassium 2.6 mmol/L (3.4-5.1)
[2024-08-22 05:46] LABS: Anisocytosis 3+; Microcytosis 1+; Neutrophils Absolute Manual 7081 /uL (3000-5900); Target Cells 1+; Tear Drop Cells 1+; Total Cells Counted 100
[2024-08-22] MEDS: POTASSIUM CHLORIDE IN WATER 10 MEQ/100 ML PIGGYBACK 100 MEQ IV ×2 (06:59→08:20)
[2024-08-22] MEDS: LEVOTHYROXINE 75 MCG TABLET PO (07:00)
[2024-08-22] MEDS: PANTOPRAZOLE DR 40 MG TABLET PO ×2 (07:00→21:47)
[2024-08-22] MEDS: PROGESTERONE, MICRONIZED 100 MG CAPSULE PO (08:19)
[2024-08-22] MEDS: ESCITALOPRAM 10 MG TABLET 20 MG PO (08:19)
[2024-08-22] MEDS: estradioL 1 MG TABLET 0.5 MG PO (08:19)
[2024-08-22] MEDS: ACETAMINOPHEN 325 MG TABLET 650 MG PO (08:21)
[2024-08-22] MEDS: SODIUM CHLORIDE 0.9% FLUSH 10 ML IV ×2 (09:40→21:47)
[2024-08-22] MEDS: ONDANSETRON 4 MG/2 ML INJ IV (10:03)
[2024-08-22] MEDS: hydrOXYzine HCL 25 MG TABLET 50 MG PO ×2 (10:05→21:54)
[2024-08-22] MEDS: POTASSIUM CHLORIDE 20 MEQ/15 ML UDC 40 MEQ PO (12:17)
[2024-08-22] MEDS: MAGNESIUM CHLORIDE 64 MG TABLET 128 MG PO (12:17)
[2024-08-22] MEDS: clonazePAM 0.5 MG TABLET PO (15:22)
[2024-08-22] MEDS: DICYCLOMINE 10 MG CAPSULE PO (15:22)
--- NOTE | 2024-08-22 16:05 | CM.DPNOTE ---
DCP note LIME KILN TENDER reviewed EMR per provider in morning rounds, final cultures remain pending. Potassium low today, not medically cleared for dc. Pt's spouse who was also admitted to the floor simultaneously plans to dc home today, see his chart for more. LIME KILN TENDER unable to meet with pt today due to triaging needs. LIME KILN TENDER lvm with APS supervisor food checkers and cashiers Gladis Fuentes [phone] to provide updates/gather more information on who assigned APS case investigator is. P: anticipate dc home when medically stable and OP f/u likely recommended. will potentially need transport assistance home. Update APS (who is case investigator?)/Comm Mixing And Dispensing Supervisor Emerson Torres as needed. ROMARIO Malone
[2024-08-22] MEDS: SIMETHICONE 80 MG TABLET PO (18:51)
--- NOTE | 2024-08-22 19:25 | PM.PN.1 ---
Subjective Subjective Interval history: 54-year-old female with alcohol dependence, chronic anemia, chronic anxiety, asthma, depression, and hypothyroidism who was admitted with acute encephalopathy, alcohol withdrawal, acute on chronic colitis, and urinary tract infection. Patient reports she is feeling better overall today. No residual dry heaving. She does continue to have a band of discomfort across her abdomen. She has been able to eat some crackers and cheese as well as little bit of fruit overnight. Exam Vital Signs (past 8 hours): - 08/22/24 16:00 08/22/24 16:00 Temperature 97.0 F L Pulse Rate 104 H Respiratory Rate 15 Blood Pressure 114/90 Pulse Oximetry 100 Oxygen Delivery Method Room Air Oxygen Flow Rate 100 Narrative Exam Narrative: GEN: Disheveled chronically ill appearing female, alert and oriented x3, appears more comfortable today HEENT:NC, Face symmetric CHEST: Respiratory excursions symmetric, CTAB CV: RRR, no M/R/G ABD: Soft, NT/ND, BT present in all 4 quadrants, no organomegaly or masses EXTR: warm, well perfused, no C/C/E SKIN: warm and dry, no rash NEURO: Alert and oriented x 3, nonfocal Objective Labs 08/22/24 04:20 08/22/24 04:20 Labs: Laboratory Results - last 24 hr 08/22/24 04:20 WBC 9.7 RBC 5.11 Hgb 12.7 Hct 38.8 MCV 75.9 L MCH 24.9 L MCHC 32.7 RDW 21.4 H Plt Count 224 Neut % (Auto) Not Reportable Lymph % (Auto) Not Reportable [place] % (Auto) Not Reportable Eos % (Auto) Not Reportable Baso % (Auto) Not Reportable Lymph # (Auto) Not Reportable [place] # (Auto) Not Reportable Baso # (Auto) Not Reportable Total Counted 100 Seg Neutrophils % 73.0 H Lymphocytes % (Manual) 24.0 L Monocytes % (Manual) 3.0 Neutrophils # (Manual) 7081 H RBC Morphology See below Anisocytosis 3+ H Microcytosis 1+ H Target Cells 1+ H Tear Drop Cells 1+ H Sodium 137 Potassium 2.6 L* Chloride 110 H Carbon Dioxide 17 L BUN 15 Creatinine 0.65 Estimated GFR > 60 BUN/Creatinine Ratio 23.1 H Glucose 77 Calcium 8.9 Magnesium 1.7 Total Bilirubin 0.8 AST 44 H ALT 26 Alkaline Phosphatase 212 H Total Protein 6.9 Albumin 3.4 L Globulin 3.5 Albumin/Globulin Ratio 1.0 PFSH Medical History (Updated 08/19/24 @ 23:38 by Estela Romero DO) Amenorrhea Neuropathy Chronic venous insufficiency Obstructive sleep apnea (Unknown) GERD (gastroesophageal reflux disease) (Unknown) Allergy (Unknown) Restless leg syndrome (2014) Anxiety (1989) Shoulder pain (Unknown) Foot pain (2003) Chronic back pain (Unknown) Vertigo (1979) Painful menstrual periods (Unknown) Heavy menses (Unknown) IBS (irritable bowel syndrome) (1985) Surgical History 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) Hx of sinus surgery (2011) History of removal of laparoscopic gastric banding device (2014) Hx of laparoscopic gastric banding (2011) Family History Grandmother Cancer Mental health problem Mother Age: 76 Mental health disorder Sister Age: 58 Heart disease Hypertension High cholesterol Mental health problem Asthma COPD (chronic obstructive pulmonary disease) Social History household members: spouse and family Smoking Status: Current every day smoker Tobacco: How many years used: 10 second hand exposure: No alcohol intake: current substance use type: does not use Assessment & Plan Assessment & Plan narrative: 1. Nausea and vomiting Improved today. Suspect was related to her UTI. 2. UTI, Gram-negative smith Await culture sensitivities. Continue Rocephin pending sensitivities. 3. Colitis Hemoglobin stable and symptoms have been improving. 4. Alcohol dependence No symptoms or signs of withdrawal at this time. 5. Leukocytosis White blood cell count has normalized. 6. Metabolic acidosis 2 L of normal saline were ordered yesterday secondary to her dry heaving and poor intake. Suspect this is secondary to GI losses. We will continue to monitor. 7. Hypokalemia Potassium dropped from 3.2-2.6 today. Will continue to replete. Recheck in the morning. Code status Full Prophylaxis Low Angelica score Disposition Assuming her potassium corrects, and culture results are finalized tomorrow, I anticipate she will discharge home. Time-Based Coding :: [TOTAL MINUTES] spent with patient and on the chart (including review of chart, obtaining history, exam, reviewing outside data, placing orders, documenting exam and treatment plan, and counseling patient) on [DATE]. Quality VTE Deep Vein Thrombosis/Pulmonary Embolism Present on Admission: No
[2024-08-22] MEDS: cefTRIAXone 1,000 MG in SODIUM CHLORIDE 0.9% 100 ML 200 MG IV (21:47)
[2024-08-23] VITALS (31 sets, daily range): BP systolic 94–144; BP diastolic 69–109; PULSE 96–123; RESP 14–36; TEMP 36.3–36.9; O2SAT 93–100
[2024-08-23] MEDS: clonazePAM 0.5 MG TABLET PO ×2 (02:47→15:46)
[2024-08-23 04:36] LABS: Hematocrit 34.1 % (36-46); Hemoglobin 11.1 g/dL (12.0-16.0); Mean Corpuscular HGB Conc 32.4 % (30-36); Mean Corpuscular Hemoglobin 24.8 PG (26-34); Mean Corpuscular Volume 76.4 fL (80-100); Platelet Count 174 X10^3/uL (150-400); Red Blood Cell Count 4.46 X10^6/uL (4.0-5.2); Red Cell Distribution Width 21.3 % (11.6-14.8); White Blood Cell Count 8.7 X10^3/uL (4.5-11.0)
[2024-08-23 04:37] LABS: Add Manual Diff / Slide Review YES
[2024-08-23 04:39] LABS: Alanine Aminotransferase 16 IU/L (<35); Albumin 2.2 g/dL (3.5-5.0); Albumin Globulin Ratio 0.8 (1.0-2.8); Alkaline Phosphatase 141 U/L (38-126); Aspartate Aminotransferase 29 IU/L (14-36); BUN Creatinine Ratio 20.6 (6-22); Bilirubin Total 0.4 mg/dL (0.2-1.3); Blood Urea Nitrogen 13 mg/dL (7-17); Calcium 8.5 mg/dL (8.4-10.2); Carbon Dioxide 16 mmol/L (22-32); Chloride 112 mmol/L (98-107); Estimated Glomerular Filt Rate > 60 mL/min (>60); Globulin 2.6 g/dL (1.7-4.1); Glucose 72 mg/dL (70-100); HEMOLYSIS < 15 (0-50); Magnesium 1.7 mg/dL (1.6-2.3); Potassium 3.6 mmol/L (3.4-5.1); Sodium 135 mmol/L (137-145); Total Protein 4.8 g/dL (6.3-8.2)
[2024-08-23 05:11] LABS: Anisocytosis 2+; Microcytosis 1+; Neutrophils Absolute Manual 6090 /uL (3000-5900); Ovalocytes 1+; Tear Drop Cells 1+; Total Cells Counted 100
[2024-08-23 05:12] LABS: Target Cells 1+
[2024-08-23] MEDS: LEVOTHYROXINE 75 MCG TABLET PO (06:13)
[2024-08-23] MEDS: PANTOPRAZOLE DR 40 MG TABLET PO ×2 (06:13→20:28)
[2024-08-23] MEDS: MAGNESIUM CHLORIDE 64 MG TABLET 128 MG PO (09:39)
[2024-08-23] MEDS: ESCITALOPRAM 10 MG TABLET 20 MG PO (09:40)
[2024-08-23] MEDS: estradioL 1 MG TABLET 0.5 MG PO (09:40)
[2024-08-23] MEDS: SODIUM CHLORIDE 0.9% FLUSH 10 ML IV ×3 (09:42→20:29)
[2024-08-23] MEDS: PROGESTERONE, MICRONIZED 100 MG CAPSULE PO (09:42)
--- NOTE | 2024-08-23 10:31 | CM.DPNOTE ---
DCP note LANDSCAPE LABORER reviewed EMR per provider in morning rounds, anticipate dc tomorrow P: anticipate dc home when medically stable and OP f/u likely recommended. will potentially need transport assistance home. Update APS (who is criminal investigator?)/Comm Grade And Center Marker Emerson Torres as needed. ROMARIO Malone
--- NOTE | 2024-08-23 12:30 | PT-IP ANOTE ---
PT checks in on pt who is sleeping soundly. Pt awakens to PT voice and she pleasantly declines PT at this time, states she will get up with nsg later. Con't PT efforts.
--- NOTE | 2024-08-23 15:23 | P.PN_ITS ---
Subjective Subjective Interval history: Subjective: She was doing well but continues to be very weak. Exam Vital Signs (past 8 hours): Oxygen Delivery Method Room Air Oxygen Flow Rate 0 Narrative Exam Narrative: NAD, alert and oriented. Fluent speech. Lungs are clear, normal rate and effort. Heart is regular, no murmur gallop or rub. Abdomen is soft, non distended. Extremities are free of edema. Objective Labs 08/23/24 03:05 08/24/24 04:40 [facility] Medical History Amenorrhea Neuropathy Chronic venous insufficiency Obstructive sleep apnea (Unknown) GERD (gastroesophageal reflux disease) (Unknown) Allergy (Unknown) Restless leg syndrome (2014) Anxiety (1989) Shoulder pain (Unknown) Foot pain (2003) Chronic back pain (Unknown) Vertigo (1979) Painful menstrual periods (Unknown) Heavy menses (Unknown) IBS (irritable bowel syndrome) (1985) Surgical History 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) Hx of sinus surgery (2011) History of removal of laparoscopic gastric banding device (2014) Hx of laparoscopic gastric banding (2011) Family History Grandmother Cancer Mental health problem Mother Age: 76 Mental health disorder Sister Age: 58 Heart disease Hypertension High cholesterol Mental health problem Asthma COPD (chronic obstructive pulmonary disease) Social History household members: spouse and family Smoking Status: Current every day smoker Tobacco: How many years used: 10 second hand exposure: No alcohol intake: current substance use type: does not use Assessment & Plan Assessment & Plan narrative: 1. Nausea and vomiting , improved Improved today. Suspect was related to her UTI. 2. UTI, Gram-negative smith, UTI ruled out. Await culture sensitivities. Continue Rocephin pending sensitivities. 3. Colitis , resolved. Hemoglobin stable and symptoms have been improving. 4. Alcohol dependence , stable. No symptoms or signs of withdrawal at this time. 5. Leukocytosis , improved. White blood cell count has normalized. 6. Metabolic acidosis , improved. 2 L of normal saline were ordered yesterday secondary to her dry heaving and poor intake. Suspect this is secondary to GI losses. We will continue to monitor. 7. Hypokalemia , improved. Potassium dropped from 3.2-2.6 today. Will continue to replete. Recheck in the morning. Plan: - Continue therapy. - Anticipate probable discharge within the next day or so. - Ongoing discharge discussions regarding alcohol cessation options. Time-Based Coding :: [TOTAL MINUTES] spent with patient and on the chart (including review of chart, obtaining history, exam, reviewing outside data, placing orders, documenting exam and treatment plan, and counseling patient) on [DATE]. Quality VTE Deep Vein Thrombosis/Pulmonary Embolism Present on Admission: No
[2024-08-23] MEDS: ACETAMINOPHEN 325 MG TABLET 650 MG PO (20:28)
[2024-08-23] MEDS: hydrOXYzine HCL 25 MG TABLET 50 MG PO (20:28)
[2024-08-23] MEDS: cefTRIAXone 1,000 MG in SODIUM CHLORIDE 0.9% 100 ML 200 MG IV (22:06)
[2024-08-24] VITALS (16 sets, daily range): BP systolic 104–142; BP diastolic 74–106; PULSE 95–119; RESP 14–37; TEMP 35.8–36.8; O2SAT 98–99
[2024-08-24] MEDS: PANTOPRAZOLE DR 40 MG TABLET PO (05:11)
[2024-08-24] MEDS: LEVOTHYROXINE 75 MCG TABLET PO (05:11)
[2024-08-24] MEDS: hydrOXYzine HCL 25 MG TABLET 50 MG PO (05:11)
[2024-08-24 05:38] LABS: Blood Urea Nitrogen 12 mg/dL (7-17); Calcium 8.2 mg/dL (8.4-10.2); Carbon Dioxide 18 mmol/L (22-32); Chloride 113 mmol/L (98-107); Estimated Glomerular Filt Rate > 60 mL/min (>60); Glucose 81 mg/dL (70-100); HEMOLYSIS < 15 (0-50); Magnesium 1.9 mg/dL (1.6-2.3); Potassium 3.6 mmol/L (3.4-5.1); Sodium 134 mmol/L (137-145)
[2024-08-24] MEDS: estradioL 1 MG TABLET 0.5 MG PO (09:34)
[2024-08-24] MEDS: ESCITALOPRAM 10 MG TABLET 20 MG PO (09:34)
[2024-08-24] MEDS: PROGESTERONE, MICRONIZED 100 MG CAPSULE PO (09:34)
[2024-08-24] MEDS: SODIUM CHLORIDE 0.9% FLUSH 10 ML IV (09:35)
[2024-08-24] MEDS: ACETAMINOPHEN 325 MG TABLET 650 MG PO (10:36)
[2024-08-24] MEDS: clonazePAM 0.5 MG TABLET PO (11:39)
--- NOTE | 2024-08-24 12:36 | PT.IPTN ---
Current Diagnoses Urinary tract infection, site not specified (08/19/24) Physical Therapy Treatment Note M2 PT-IP Current Condition Start: 08/20/24 08:43 Freq: NEEDED Status: Active Protocol: Document 08/21/24 09:40 DLM (Rec: 08/21/24 12:14 DLM [id number]) Physical Therapy Current Condition Current Condition Evaluation Date 08/21/24 Treatment Diagnosis encephalopathy, impaired gait/ mobility Onset Date 08/19/24 M3 PT-IP Subjective Start: 08/20/24 08:43 Freq: NEEDED Status: Active Protocol: Document 08/24/24 12:09 MB (Rec: 08/24/24 12:35 MB [id number]) Subjective Physical Therapy Visit Type Type Treatment Note Visit Start Time 12:09 Visit Stop Time 12:27 Number of VIOLIN TEACHER Visits 0 Physical Therapy Visit Comments Patient Comments Pt states that she is feeling depressed and she almost just fell (clarified that she did not fall with nsg) and that her confidence is shook and she does not feel like getting OOB again and she is worried about d/c. Therapy Pain Assessment Pain When Pain Assessed At Rest Pain Present Pain Present Pain Reported Location Right hip and leg Scale Used Not rated M4 PT-IP Mobility and Gait Start: 08/20/24 08:43 Freq: NEEDED Status: Active Protocol: Document 08/24/24 12:09 MB (Rec: 08/24/24 12:35 MB [id number]) PT-Bed Mobility Assessment Rolling Level of Assist Independent Supine to Sit Supine to Sit Independent Scooting Scooting to Edge of Bed Independent PT-Transfer Assessment Comments Mobility Comments BP in RUE: supine 116/77; sitting 121/79. PT-Balance Assessment Sitting Balance and Reactions Static Sitting Balance Ability Good Dynamic Sitting Balance Ability Good Comments Other Balance Tests/Deviations/Treatment I sitting EOB : M5 PT-IP Objective Assessments Start: 08/20/24 08:43 Freq: NEEDED Status: Active Protocol: Document 08/21/24 09:40 DLM (Rec: 08/21/24 12:14 DLM [id number]) Orientation Orientation/Cognition Level of Alertness Alert Orientation Name,Place,Situation Safety Awareness Decreased Safety Awareness Comments unable to fully assess orientation, pt very focused on not feeling well and not having her clothes Gross Range of Motion Upper Extremity ROM Assessment Within Functional Limits Lower Extremity ROM Assessment Within Functional Limits Strength Comments Strength Comments unable to assess strength, pt moving all extremities functionally, she is nauseated Coordination Assessment Gross Coordination Gross Coordination Impaired Assessment Coordination Comments mild decrease in generalized coordination, bradykinetic also today Sensation Assessment Sensation Gross Sensation Right UE Impaired,Left UE Impaired,Right LE Impaired, Left LE Impaired Sensation Description Paresthesia,Numbness,Pain Comments Sensation Comments she describes numnbess and tingling in hands and feet with intermittent pain in feet Muscle Tone Muscle Tone WNL Yes M6 PT-IP Treatment Start: 08/20/24 08:43 Freq: NEEDED Status: Active Protocol: Document 08/21/24 09:40 DLM (Rec: 08/21/24 12:14 DLM [id number]) Physical Therapy Treatment Education Education Provided Safety M7 PT-IP Assessment and Plan Start: 08/20/24 08:43 Freq: NEEDED Status: Active Protocol: Document 08/24/24 12:09 MB (Rec: 08/24/24 12:35 MB [id number]) PT Summary Assessment and Plan Potential Rehabilitation Potential Poor Status of Condition at Evaluation Evolving Summary Impairments Pain,Transfers,Gait,Activity Tolerance Progress Towards Goals Slow Progress - Other Assessment Summary Rebekah refuses OOB, reports right sided leg discomfort and depressed about going home. Goals Bed Mobility Goal Independent Transfer Goal Standby Assistance,Front Wheeled Walker Gait Goal Standby Assistance,Front Wheel Walker Gait Distance 150 feet Other Goals up/down 5 steps with rail and SBA Days to Meet Goals 5 Frequency of Treatment Frequency Of Treatment Once a Day Treatment Plan Physical Therapy Treatment Plan Bed Mobility Training,Transfer Training,Gait Training, Therapeutic Exercise,Balance Retraining,Discharge Planning, Neuromuscular Re-ed Other Recommendations and Next Treatment continue to assess mobility as Focus she can increase her activity Precautions Other Precautions Fall risk Recommendations To Nursing Amount of Assist Needed 1 Person Assist Discharge Recommendations Other Discharge Recommendations continue to assess as pt can participate more Transportation Needs at Discharge Private Vehicle - PT assist x1-2
--- NOTE | 2024-08-24 14:05 | PM.DS.1 ---
History of Present Illness History of Present Illness Chief complaint: AMS/Lethargy Narrative: From H&P: 54-year-old female with past medical history of alcohol abuse, chronic anemia, anxiety, asthma, depression and hypothyroidism presents with confusion. Of note the patient is confused and cannot provide any reliable history. The patient was found by EMS in a confused state at her home. It was reported that the patient was admitted for alcohol issues in the past. Currently the patient knows her name and knows that she is in the hospital but cannot give any reliable history and is confused about the date. In the emergency room, labs shows a hemoglobin of 6.2 previously in December 2023 it was 8.3. Sodium 136 normal lactate TSH of 7.5 UA shows some bacteria some WBC urine tox was positive for meth benzodiazepine. Chest x-ray was clear CT head shows no acute pathology CT abdomen and pelvic is also done which shows moderate colitis that could be acute or chronic. The patient was given IV ceftriaxone and IV fluid. Guaiac study was positive for brown stool. Patient had 2 units of packed red blood cells ordered and general surgery consulted. Discharge Providers Provider Date of admission: 08/19/24 23:54 Discharge Date: 08/24/24 Primary care physician: Barry Em MD Consults: 08/19/24 23:37 Consult to Physician Stat Comment: Consulting Provider: Yaya Tyson Reason for consultation: GI bleed Has provider been notified: Yes 08/19/24 23:40 Consult to Physical Therapy Evaluate & Treat Comment: Physician Instructions: Evaluate and Treat Discharge provider: Pino Santiago MD Summary Hospital Course Discharge Diagnosis: 1. Nausea and vomiting , present on admission and improved. Improved today. Suspect was related to her UTI. 2. UTI, Gram-negative smith, ruled out. Await culture sensitivities. Continue Rocephin pending sensitivities. 3. Colitis , present on admission and improved. Hemoglobin stable and symptoms have been improving. 4. Alcohol dependence , stable. No symptoms or signs of withdrawal at this time. 5. Leukocytosis , present on admission and improved. White blood cell count has normalized. 6. Metabolic acidosis , present on admission and improved. 7. Hypokalemia, Present on admission and improved. Hospital Course: Hospital course: She was a history of alcohol use and dependence. She presented with volume depletion and nausea and vomiting. She was initially given antibiotics for a possible UTI but ultimately had less than 10,000 organisms per CFU. There was also a question of colitis on imaging. She ultimately improved and her white blood cell count, which was elevated admission, normalized. Her metabolic acidosis and hypokalemia corrected with IV fluids and electrolyte repletion. She was also physically debilitated, but this did improve and she was felt to be stable for discharge with the emphasis on the importance of a plan for alcohol cessation. Status at Discharge Cognitive/behavioral status at discharge: oriented Functional status at discharge: independent ambulation Overall status at discharge: patient is progressing back to baseline Time Spent with Patient Time spent: Greater than 30 minutes Exam Vital Signs (past 8 hours): - 08/24/24 07:00 08/24/24 07:26 08/24/24 07:26 Temperature 98.2 F Pulse Rate 99 H 102 H Respiratory Rate 17 26 H Blood Pressure 112/84 Pulse Oximetry 99 Oxygen Delivery Method 08/24/24 08:00 08/24/24 08:00 08/24/24 09:00 Temperature Pulse Rate 108 H 104 H Respiratory Rate 17 22 Blood Pressure Pulse Oximetry Oxygen Delivery Method Room Air 08/24/24 09:41 08/24/24 11:21 08/24/24 12:16 Temperature Pulse Rate 104 H Respiratory Rate 26 H Blood Pressure 142/106 H 116/77 Pulse Oximetry Oxygen Delivery Method 08/24/24 12:17 Temperature 97.8 F Pulse Rate Respiratory Rate Blood Pressure 121/79 Pulse Oximetry 98 Oxygen Delivery Method Oxygen Delivery Method Room Air Oxygen Flow Rate 0 Narrative Exam Narrative: NAD, alert and oriented. Fluent speech. Frail and underweight. Lungs are clear, normal rate and effort. Heart is regular, no murmur gallop or rub. Abdomen is soft, non distended. Extremities are free of edema. Objective Imaging Multiple studies:: Radiologist's impression: Abdomen pelvis CTA: No definite arterial bleeding identified. Diffuse findings of moderate colitis. Appearance on CT is suggestive of acute on chronic time course, with submucosal fatty metaplasia. There is involvement of the ascending colon, transverse colon and descending colon. Increased fecal loading is seen in the distal colon. No small bowel obstruction. Consider colonoscopy correlation. Head CT: No acute intracranial pathology. Chest x-ray: No acute cardiopulmonary abnormality is seen. Labs 08/23/24 03:05 08/24/24 04:40 Labs: Laboratory Results - last 24 hr 08/24/24 04:40 Sodium 134 L Potassium 3.6 Chloride 113 H Carbon Dioxide 18 L BUN 12 Creatinine 0.63 Estimated GFR > 60 BUN/Creatinine Ratio 19.0 Glucose 81 Calcium 8.2 L Magnesium 1.9 PFSH Medical History Amenorrhea Neuropathy Chronic venous insufficiency Obstructive sleep apnea (Unknown) GERD (gastroesophageal reflux disease) (Unknown) Allergy (Unknown) Restless leg syndrome (2014) Anxiety (1989) Shoulder pain (Unknown) Foot pain (2003) Chronic back pain (Unknown) Vertigo (1979) Painful menstrual periods (Unknown) Heavy menses (Unknown) IBS (irritable bowel syndrome) (1985) Surgical History 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) Hx of sinus surgery (2011) History of removal of laparoscopic gastric banding device (2014) Hx of laparoscopic gastric banding (2011) Family History Grandmother Cancer Mental health problem Mother Age: 76 Mental health disorder Sister Age: 58 Heart disease Hypertension High cholesterol Mental health problem Asthma COPD (chronic obstructive pulmonary disease) Social History household members: spouse and family Smoking Status: Current every day smoker Tobacco: How many years used: 10 second hand exposure: No alcohol intake: current substance use type: does not use Discharge Assessment & Plan Assessment and Plan Assessment: 1. Nausea and vomiting , present on admission and improved. Improved today. Suspect was related to her UTI. 2. UTI, Gram-negative smith, ruled out. Await culture sensitivities. Continue Rocephin pending sensitivities. 3. Colitis , present on admission and improved. Hemoglobin stable and symptoms have been improving. 4. Alcohol dependence , stable. No symptoms or signs of withdrawal at this time. 5. Leukocytosis , present on admission and improved. White blood cell count has normalized. 6. Metabolic acidosis , present on admission and improved. 7. Hypokalemia, Present on admission and improved. Plan of Treatment: Stable for discharge home, close follow up with the PCP, and encourage alcohol cessation and consideration of a residential treatment plan Discharge Plan Discharge Plan Patient Disposition: Home Provider Discharge Comment: You were admitted to the hospital with anemia, requiring transfusion. Will add antacid medication for possible stomach bleeding for now. Continue to follow up with primary care and try to cut down on alcohol use, especially with clonazepam Discharge orders & Medications Prescriptions: New pantoprazole 40 mg tablet,delayed release (DR/EC) 40 mg PO BID 30 Days Qty: 60 0RF Continued escitalopram oxalate 20 mg tablet 20 mg PO DAILY Qty: 90 1RF Rx Instructions: Take 1 tablet (20 mg total) by mouth daily clonazepam 0.5 mg tablet 0.5 mg PO BID PRN (Reason: Anxiety) Qty: 60 0RF Hold Instructions: per provider Rx Instructions: Take 1 tablet (0.5mg total) by mouth 2 (two) times daily as needed for anxiety. Do not take with alcohol. estradiol 0.5 mg tablet 0.5 mg PO DAILY Qty: 90 3RF progesterone micronized [Prometrium] 100 mg capsule 100 mg PO QAM Qty: 90 3RF baclofen 20 mg tablet 20 mg PO TID PRN (Reason: Muscle Spasm) 7 Days Qty: 20 0RF dicyclomine 10 mg capsule 10 mg PO 4XD PRN (Reason: IBS) ondansetron HCl 8 mg tablet 8 mg PO Q8HR PRN (Reason: Nausea And Vomiting) levothyroxine 75 mcg tablet 75 mcg PO DAILY No Action hydroxyzine HCl 50 mg tablet 50 mg PO Q6H PRN (Reason: anxiety) hydrochlorothiazide 25 mg tablet 25 mg PO DAILY albuterol sulfate 90 mcg/actuation HFA aerosol inhaler 2 puff INHALATION Q4H PRN (Reason: wheezing) Follow up/Referrals: Barry Em MD [Primary Care Provider] - Diet/Activity/Treatments Diet: Diet as Tolerated and Regular Activity: As tolerated, no restrictions. Visit Report/Discharge Packet Instructions: DI for Blood Transfusion, DI for Alcohol Use Disorder, How to Prevent Falls Stand Alone Forms: Patient Portal/API Discharge Data Primary Care Provider: Barry Em Quality VTE Deep Vein Thrombosis/Pulmonary Embolism Present on Admission: No
--- NOTE | 2024-08-24 14:17 | PC.NURSE ---
PEDIATRIC ALLERGIST assisted pt off of commode w walker and gaitbelt. Pt was steady, until seated on the bed. Pt started to slide down the bed, PEDIATRIC ALLERGIST quickly assisted pt's legs onto the bed. RN and PEDIATRIC ALLERGIST then helped position pt into supine position.
--- NOTE | 2024-08-24 14:43 | PC.NURSE ---
This RN have offered to help patient shower today, initially she states she would like to shower except for her hair. Now that she is being discharged she has declined to bath or shower prior to leaving, states she would prefer to use her own products, states her is bringing close in for her to put on for discharge.
--- NOTE | 2024-08-24 15:43 | PC.NURSE ---
Discharge paperwork reviewed with patient, she states understanding and has no further questions or concerns at this time. IV removed intact. Patient was picked up by her . Patient escorted out via wheelchair with all her belongings to go home with her and mother. Patient states she will follow up with her PCP and [facility].
--- NOTE | 2024-08-24 15:51 | CM.DPNOTE ---
DCP note [facility] reviewed EMR per provider, pt cleared to dc home. per chart review, no HH agencies in area willing to accept pt back for services. Per PT, pt refused to work with them today. Per SUPERVISOR MAINTENAN[employer], pt mobilized with walker in room to bedside commode, see RN/SUPERVISOR MAINTENANCE notes for more. [facility] met with pt in room multiple times throughout day for DCP conversations. Pt declining INPT ETOH tx due to caring for mom at home. open to OP tx. [facility] provided information for [facility], pt plans to go there either after dc or tomorrow morning for intake assessment. pt declining SNF placement. pt reports feeling weaker than her normal. pt has a walker/wc/bedside commode at home. pt has been working with [facility] paramedics to help get home set up better. Pt gave this CM team permission to coordinate with Emerson torres on her behalf. After reviewing DCP options, pt preference is to dc home with [employer] f/u. reports spouse can transport her home. denies other CM needs at this time Per APS intake, no APS referral was made by paramedics previously for self neglect. [facility] lvm with Emerson Torres and emailed him with updates. P: dc home today transport with family in POV. plans to f/u with [facility] for OP ETOH tx. CM team will continue to follow as needed ROMARIO Malone
== END 2024-08-24 15:30 | disposition home or self-care (01) ==
LOC: ED 23:36 → AC 08-20 01:22 → ICU 08-20 07:22 → AC 08-28 08:49
PROVIDERS: Emergency Medicine; Internal Medicine; Admitting Provider Internal Medicine; Emergency Provider Emergency Medicine; Family Provider Family Medicine; PCP Family Medicine; Referring Provider Emergency Medicine; Visit Provider Internal Medicine
DX: K52.9 Noninfective gastroenteritis and colitis, unspecified (principal); G93.40 Encephalopathy, unspecified; E87.20 Acidosis, unspecified; F10.239 Alcohol dependence with withdrawal, unspecified; R11.2 Nausea with vomiting, unspecified; E03.9 Hypothyroidism, unspecified; F32.A Depression, unspecified; D64.9 Anemia, unspecified; F41.9 Anxiety disorder, unspecified; F17.210 Nicotine dependence, cigarettes, uncomplicated; E87.6 Hypokalemia; Y90.0 Blood alcohol level of less than 20 mg/100 ml; Z79.890 Hormone replacement therapy
CPT/HCPCS: 36415; 36430; 70450; 71045; 74174; 80048; 80053; 80305; 80320; 81003; 81015; 82140; 82805; 83605; 83690; 83735; 84145; 84439; 84443; 85007; 85014; 85018; 85025; 85610; 85730; 86850; 86900; 86901; 87040; 87086; 87797; 93005; 93010; 96361; 96365; 96366; 96367; 96375; 96376; 97162; 97530; 99232; 99285; 99291; G0378; P9016; A9270; J0696; J2405; J2470; Q9967

== ENCOUNTER 2024-09-12 06:01 | Inpatient (IN) | payer OTHER, SELFPAY ==
[2024-08-20 02:47] VITALS: BMI 20.2
[2024-09-12] VITALS (59 sets, daily range): BP systolic 78–140; BP diastolic 54–100; PULSE 87–110; RESP 16–22; TEMP 34.8–36.9; O2SAT 96–100; BMI 19.6
--- NOTE | 2024-09-12 06:15 | ED.GENADULT ---
HPI - General Adult <Kareen Kimbrough MD - Last Filed: 09/12/24 22:48> General Chief complaint: Altered Mental Status Stated complaint: failure to thrive/behavioral? Time Seen by Provider: 09/12/24 06:06 History of Present Illness HPI narrative: 54-year-old woman with a history of alcohol use disorder, anemia, asthma, depression, hypothyroidism, multiple falls with almost daily visits by medic to their home. Lives with her and their mother with home situation described as unsafe. Prior APS reports have been filed. Apparently she and her both have been drinking this evening she fell and was unable to get up off floor. He called 911 and she did not refuse transport to the ER this time. She is pale, able to move but not interested in cooperating with exam or answering any questions. Related Data Home Medications Medication Instructions Recorded Confirmed dicyclomine 10 mg capsule 10 mg PO 4XD PRN IBS 07/09/23 08/21/24 levothyroxine 75 mcg tablet 75 mcg PO DAILY Hypothyroidism 07/09/23 08/21/24 ondansetron HCl 8 mg tablet 8 mg PO Q8HR PRN Nausea And 07/09/23 08/21/24 Vomiting albuterol sulfate 90 mcg/actuation 2 puff inhalation Q4H PRN wheezing 08/21/24 08/21/24 aerosol inhaler hydrochlorothiazide 25 mg tablet 25 mg PO DAILY 08/21/24 08/21/24 hydroxyzine HCl 50 mg tablet 50 mg PO Q6H PRN anxiety 08/21/24 08/21/24 Previous Rx's Medication Instructions Recorded baclofen 20 mg tablet 20 mg PO TID PRN Muscle Spasm 7 08/14/21 days #20 tabs escitalopram oxalate 20 mg tablet 20 mg PO DAILY #90 tabs 05/13/23 clonazepam 0.5 mg tablet 0.5 mg PO BID PRN Anxiety #60 tabs 07/08/23 estradiol 0.5 mg tablet 0.5 mg PO DAILY Hormone 03/12/24 replacement therapy #90 tabs progesterone micronized 100 mg 100 mg PO QAM Hormone replacement 03/12/24 capsule (Prometrium) #90 caps pantoprazole 40 mg tablet,delayed 40 mg PO BID 30 days #60 tabs 08/20/24 release Allergies Allergy/AdvReac Type Severity Reaction Status Date / Time No Known Drug Allergies Allergy Verified 09/13/22 13:48 Review of Systems <Kareen Kimbrough MD - Last Filed: 09/12/24 22:48> Review of Systems ROS Unobtainable: Unobtainable due to mental condition Patient History <Kareen Kimbrough MD - Last Filed: 09/12/24 22:48> Medical History Allergy (Unknown) Amenorrhea Anxiety (1989) Chronic back pain (Unknown) Chronic venous insufficiency Foot pain (2003) GERD (gastroesophageal reflux disease) (Unknown) Heavy menses (Unknown) IBS (irritable bowel syndrome) (1985) Neuropathy Obstructive sleep apnea (Unknown) Painful menstrual periods (Unknown) Restless leg syndrome (2014) Shoulder pain (Unknown) Vertigo (1979) Surgical History History of removal of laparoscopic gastric banding device (2014) Hx of laparoscopic gastric banding (2011) Hx of sinus surgery (2011) 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) Family History Grandmother Cancer Mental health problem Mother Age: 76 Mental health disorder Sister Age: 58 Heart disease Hypertension High cholesterol Mental health problem Asthma COPD (chronic obstructive pulmonary disease) Social History household members: spouse and family Tobacco: How many years used: 10 second hand exposure: No alcohol intake: current substance use type: does not use tobacco type: cigarettes alcohol intake frequency: 3 or more drinks per day Exam <Kareen Kimbrough MD - Last Filed: 09/12/24 22:48> Initial Vital Signs Initial Vital Signs: Vital Signs Temperature 95.6 F L 09/12/24 06:05 Pulse Rate 108 H 09/12/24 06:05 Respiratory Rate 20 09/12/24 06:05 Blood Pressure 136/58 L 09/12/24 06:05 Pulse Oximetry 100 09/12/24 06:05 Oxygen Delivery Method Room Air 09/12/24 06:05 General: Chronically unwell, cachectic, pale minimally interactive HEENT: Dry mucous membranes, slightly icteric sclera with reactive pupils, Respiratory: Lungs are clear to auscultation, no wheezing no rales no rhonchi. Full and symmetrical air movement Cardiac: Regular rate and rhythm no murmurs no bruits Abdomen: Soft, nontender, no rebound or guarding, no flank pain. There is some excoriation under both breasts Skin: pale, cool to the touch Neurologic: Globally weak, minimally responsive but protecting her airway. Fecal incontinence with dilated anal sphincter unclear if this is new or old Extremities: Cachectic, no obvious trauma Psych: Choosing not to interact <Garland Matos MD - Last Filed: 09/12/24 12:54> Initial Vital Signs Initial Vital Signs: Vital Signs Temperature 95.6 F L 09/12/24 06:05 Pulse Rate 108 H 09/12/24 06:05 Respiratory Rate 20 09/12/24 06:05 Blood Pressure 136/58 L 09/12/24 06:05 Pulse Oximetry 100 09/12/24 06:05 Oxygen Delivery Method Room Air 09/12/24 06:05 Course <Kareen Kimbrough MD - Last Filed: 09/12/24 22:48> Orders Ordered: Acetaminophen (Acetaminophen 325 Mg Tablet) 650 mg PO Q6H PRN PRN Reason: Fever/Mild Pain (1-3) Escitalopram Oxalate (Escitalopram 10 Mg Tablet) 20 mg PO DAILY [facility] Hydrochlorothiazide (Hydrochlorothiazide 25 Mg Tablet) 25 mg PO DAILY [facility] Dextrose/Sodium Chloride (Dextrose 5%-0.45% Ns) 1,000 mls @ 100 mls/hr IV CONT [facility] Last Admin: 09/12/24 21:56 Dose: 100 mls/hr Documented By: Infusion: 09/12/24 21:56 Dose: Infused Documented By: Admin: 09/12/24 12:37 Dose: 100 mls/hr Documented By: CRISTINA Levothyroxine Sodium (Levothyroxine 75 Mcg Tablet) 75 mcg PO 0600 [facility] Naloxone HCl (Naloxone 0.4 Mg/Ml Vial) 0.2 mg IV Q2MIN PRN PRN Reason: Opiate Reversal Pantoprazole Sodium (Pantoprazole Dr 40 Mg Tablet) 40 mg PO BID [facility] Last Admin: 09/12/24 21:55 Dose: Not Given Documented By: RINA Discontinued Medications Haloperidol (Haloperidol 5 Mg/Ml Vial) 5 mg IV NOW ONE Stop: 09/12/24 22:28 Last Admin: 09/12/24 22:36 Dose: 5 mg Documented By: RINA Sodium Chloride (Normal Saline 0.9%) 1,000 mls @ 1,000 mls/hr IV BOLUS ONE Stop: 09/12/24 09:16 Last Infusion: 09/12/24 10:05 Dose: Infused Documented By: Admin: 09/12/24 08:48 Dose: 1,000 mls/hr Documented By: AMBER Morphine Sulfate (Morphine 4 Mg/Ml Inj) 4 mg IV NOW ONE Stop: 09/12/24 22:29 Last Admin: 09/12/24 22:36 Dose: 4 mg Documented By: RINA Vital Signs Vital signs: Vital Signs - 8 hr 09/12/24 06:05 09/12/24 06:15 09/12/24 06:16 Temperature 95.6 F L Pulse Rate 108 H 110 H Respiratory Rate 20 Blood Pressure 136/58 L 140/100 H Pulse Oximetry 100 99 Oxygen Delivery Method Room Air 09/12/24 06:17 09/12/24 06:17 09/12/24 06:30 Temperature Pulse Rate 110 H Respiratory Rate Blood Pressure 136/85 128/88 Pulse Oximetry 100 Oxygen Delivery Method 09/12/24 06:30 09/12/24 07:00 09/12/24 07:00 Temperature 94.6 F L 96.3 F L Pulse Rate 104 H 104 H Respiratory Rate 22 17 Blood Pressure 114/84 Pulse Oximetry 100 99 Oxygen Delivery Method 09/12/24 07:05 09/12/24 07:30 09/12/24 07:30 Temperature 96.3 F L 96.6 F L Pulse Rate 101 H Respiratory Rate 20 Blood Pressure 90/68 Pulse Oximetry 98 Oxygen Delivery Method 09/12/24 07:37 09/12/24 07:37 09/12/24 07:45 Temperature Pulse Rate 101 H Respiratory Rate 21 Blood Pressure 95/63 94/63 Pulse Oximetry 98 Oxygen Delivery Method 09/12/24 07:45 09/12/24 08:00 09/12/24 08:00 Temperature 97.0 F L Pulse Rate 101 H 101 H Respiratory Rate 20 20 Blood Pressure 85/55 L Pulse Oximetry 98 98 Oxygen Delivery Method 09/12/24 08:03 09/12/24 08:03 09/12/24 08:13 Temperature Pulse Rate 101 H Respiratory Rate 20 Blood Pressure 78/56 L 97/66 Pulse Oximetry 98 Oxygen Delivery Method 09/12/24 08:13 09/12/24 08:14 09/12/24 08:14 Temperature 97.3 F L Pulse Rate 100 H 100 H Respiratory Rate 22 21 Blood Pressure 101/70 Pulse Oximetry 99 99 Oxygen Delivery Method 09/12/24 08:15 09/12/24 08:15 09/12/24 08:16 Temperature Pulse Rate 100 H Respiratory Rate 20 Blood Pressure 92/61 83/60 L Pulse Oximetry 99 Oxygen Delivery Method 09/12/24 08:16 09/12/24 08:26 09/12/24 08:26 Temperature 97.5 F L Pulse Rate 100 H 100 H Respiratory Rate 20 20 Blood Pressure 90/69 Pulse Oximetry 99 98 Oxygen Delivery Method 09/12/24 08:29 09/12/24 08:29 09/12/24 08:30 Temperature Pulse Rate 101 H 100 H Respiratory Rate 20 22 Blood Pressure 120/66 Pulse Oximetry 97 96 Oxygen Delivery Method 09/12/24 08:36 09/12/24 08:36 09/12/24 08:45 Temperature 97.2 F L Pulse Rate 101 H 99 H Respiratory Rate 19 Blood Pressure 126/75 Pulse Oximetry 98 100 Oxygen Delivery Method 09/12/24 08:45 09/12/24 09:00 09/12/24 09:00 Temperature Pulse Rate 103 H Respiratory Rate 19 Blood Pressure 119/79 119/86 Pulse Oximetry 100 Oxygen Delivery Method 09/12/24 09:15 09/12/24 09:15 09/12/24 09:30 Temperature 97.0 F L Pulse Rate 104 H 103 H Respiratory Rate 19 19 Blood Pressure 114/78 Pulse Oximetry 98 98 Oxygen Delivery Method 09/12/24 09:30 09/12/24 09:45 09/12/24 09:45 Temperature 96.8 F L Pulse Rate 98 H Respiratory Rate 20 Blood Pressure 115/79 107/75 Pulse Oximetry 98 Oxygen Delivery Method 09/12/24 10:00 09/12/24 10:00 09/12/24 10:15 Temperature 97.0 F L 97.3 F L Pulse Rate 96 H 94 H Respiratory Rate 20 21 Blood Pressure 111/66 Pulse Oximetry 100 99 Oxygen Delivery Method 09/12/24 10:15 09/12/24 10:30 09/12/24 10:30 Temperature Pulse Rate 93 H Respiratory Rate 16 Blood Pressure 91/54 L 120/84 Pulse Oximetry 99 Oxygen Delivery Method <Garland Matos MD - Last Filed: 09/12/24 12:54> Orders Ordered: Acetaminophen (Acetaminophen 325 Mg Tablet) 650 mg PO Q6H PRN PRN Reason: Fever/Mild Pain (1-3) Escitalopram Oxalate (Escitalopram 10 Mg Tablet) 20 mg PO DAILY [facility] Hydrochlorothiazide (Hydrochlorothiazide 25 Mg Tablet) 25 mg PO DAILY [facility] Dextrose/Sodium Chloride (Dextrose 5%-0.45% Ns) 1,000 mls @ 100 mls/hr IV CONT [facility] Last Admin: 09/12/24 21:56 Dose: 100 mls/hr Documented By: Infusion: 09/12/24 21:56 Dose: Infused Documented By: Admin: 09/12/24 12:37 Dose: 100 mls/hr Documented By: CRISTINA Levothyroxine Sodium (Levothyroxine 75 Mcg Tablet) 75 mcg PO 0600 [facility] Naloxone HCl (Naloxone 0.4 Mg/Ml Vial) 0.2 mg IV Q2MIN PRN PRN Reason: Opiate Reversal Pantoprazole Sodium (Pantoprazole Dr 40 Mg Tablet) 40 mg PO BID [facility] Last Admin: 09/12/24 21:55 Dose: Not Given Documented By: RINA Discontinued Medications Haloperidol (Haloperidol 5 Mg/Ml Vial) 5 mg IV NOW ONE Stop: 09/12/24 22:28 Last Admin: 09/12/24 22:36 Dose: 5 mg Documented By: RINA Sodium Chloride (Normal Saline 0.9%) 1,000 mls @ 1,000 mls/hr IV BOLUS ONE Stop: 09/12/24 09:16 Last Infusion: 09/12/24 10:05 Dose: Infused Documented By: Admin: 09/12/24 08:48 Dose: 1,000 mls/hr Documented By: AMBER Morphine Sulfate (Morphine 4 Mg/Ml Inj) 4 mg IV NOW ONE Stop: 09/12/24 22:29 Last Admin: 09/12/24 22:36 Dose: 4 mg Documented By: RINA Vital Signs Vital signs: Vital Signs - 8 hr 09/12/24 06:05 09/12/24 06:15 09/12/24 06:16 Temperature 95.6 F L Pulse Rate 108 H 110 H Respiratory Rate 20 Blood Pressure 136/58 L 140/100 H Pulse Oximetry 100 99 Oxygen Delivery Method Room Air 09/12/24 06:17 09/12/24 06:17 09/12/24 06:30 Temperature Pulse Rate 110 H Respiratory Rate Blood Pressure 136/85 128/88 Pulse Oximetry 100 Oxygen Delivery Method 09/12/24 06:30 09/12/24 07:00 09/12/24 07:00 Temperature 94.6 F L 96.3 F L Pulse Rate 104 H 104 H Respiratory Rate 22 17 Blood Pressure 114/84 Pulse Oximetry 100 99 Oxygen Delivery Method 09/12/24 07:05 09/12/24 07:30 09/12/24 07:30 Temperature 96.3 F L 96.6 F L Pulse Rate 101 H Respiratory Rate 20 Blood Pressure 90/68 Pulse Oximetry 98 Oxygen Delivery Method 09/12/24 07:37 09/12/24 07:37 09/12/24 07:45 Temperature Pulse Rate 101 H Respiratory Rate 21 Blood Pressure 95/63 94/63 Pulse Oximetry 98 Oxygen Delivery Method 09/12/24 07:45 09/12/24 08:00 09/12/24 08:00 Temperature 97.0 F L Pulse Rate 101 H 101 H Respiratory Rate 20 20 Blood Pressure 85/55 L Pulse Oximetry 98 98 Oxygen Delivery Method 09/12/24 08:03 09/12/24 08:03 09/12/24 08:13 Temperature Pulse Rate 101 H Respiratory Rate 20 Blood Pressure 78/56 L 97/66 Pulse Oximetry 98 Oxygen Delivery Method 09/12/24 08:13 09/12/24 08:14 09/12/24 08:14 Temperature 97.3 F L Pulse Rate 100 H 100 H Respiratory Rate 22 21 Blood Pressure 101/70 Pulse Oximetry 99 99 Oxygen Delivery Method 09/12/24 08:15 09/12/24 08:15 09/12/24 08:16 Temperature Pulse Rate 100 H Respiratory Rate 20 Blood Pressure 92/61 83/60 L Pulse Oximetry 99 Oxygen Delivery Method 09/12/24 08:16 09/12/24 08:26 09/12/24 08:26 Temperature 97.5 F L Pulse Rate 100 H 100 H Respiratory Rate 20 20 Blood Pressure 90/69 Pulse Oximetry 99 98 Oxygen Delivery Method 09/12/24 08:29 09/12/24 08:29 09/12/24 08:30 Temperature Pulse Rate 101 H 100 H Respiratory Rate 20 22 Blood Pressure 120/66 Pulse Oximetry 97 96 Oxygen Delivery Method 09/12/24 08:36 09/12/24 08:36 09/12/24 08:45 Temperature 97.2 F L Pulse Rate 101 H 99 H Respiratory Rate 19 Blood Pressure 126/75 Pulse Oximetry 98 100 Oxygen Delivery Method 09/12/24 08:45 09/12/24 09:00 09/12/24 09:00 Temperature Pulse Rate 103 H Respiratory Rate 19 Blood Pressure 119/79 119/86 Pulse Oximetry 100 Oxygen Delivery Method 09/12/24 09:15 09/12/24 09:15 09/12/24 09:30 Temperature 97.0 F L Pulse Rate 104 H 103 H Respiratory Rate 19 19 Blood Pressure 114/78 Pulse Oximetry 98 98 Oxygen Delivery Method 09/12/24 09:30 09/12/24 09:45 09/12/24 09:45 Temperature 96.8 F L Pulse Rate 98 H Respiratory Rate 20 Blood Pressure 115/79 107/75 Pulse Oximetry 98 Oxygen Delivery Method 09/12/24 10:00 09/12/24 10:00 09/12/24 10:15 Temperature 97.0 F L 97.3 F L Pulse Rate 96 H 94 H Respiratory Rate 20 21 Blood Pressure 111/66 Pulse Oximetry 100 99 Oxygen Delivery Method 09/12/24 10:15 09/12/24 10:30 09/12/24 10:30 Temperature Pulse Rate 93 H Respiratory Rate 16 Blood Pressure 91/54 L 120/84 Pulse Oximetry 99 Oxygen Delivery Method Medical Decision Making <Kareen Kimbrough MD - Last Filed: 09/12/24 22:48> Lab Data 09/12/24 06:30 09/12/24 06:30 Labs: Lab Results 09/12/24 09/12/24 09/12/24 Range/Units 06:19 06:30 06:30 WBC 10.6 (4.5-11.0) X10^3/uL RBC 3.99 L (4.0-5.2) X10^6/uL Hgb 10.9 L (12.0-16.0) g/dL Hct 32.2 L (36-46) % MCV 80.6 (80-100) fL MCH 27.2 (26-34) PG MCHC 33.7 (30-36) % RDW 22.0 H (11.6-14.8) % Plt Count 286 (150-400) X10^3/uL Neut % (Auto) 78.7 H (50-75) % Lymph % (Auto) 13.3 L (25-40) % [place] % (Auto) 7.4 (3-14) % Eos % (Auto) 0.1 L (2-4) % Baso % (Auto) 0.5 (0-2) % Neut # (Auto) 8300 H (3595-5284) /uL Lymph # (Auto) 1400 (4268-1084) /uL [place] # (Auto) 800 (0-900) /uL Eos # (Auto) 0 (0-450) /uL Baso # (Auto) 100 (0-100) /uL RBC Morphology See below Anisocytosis 3+ H Microcytosis 1+ H Schistocytes 1+ H Sodium 139 (137-145) mmol/L Potassium 3.3 L (3.4-5.1) mmol/L Chloride 113 H (98-107) mmol/L Carbon Dioxide 19 L (22-32) mmol/L BUN 25 H (7-17) mg/dL Creatinine 0.69 (0.52-1.04) mg/dL Estimated GFR > 60 (>60) mL/min BUN/Creatinine Ratio 36.2 H (6-22) Glucose 132 H (70-100) mg/dL Lactate 2.0 (0.7-2.1) mmol/L Calcium 9.0 (8.4-10.2) mg/dL Magnesium 2.0 (1.6-2.3) mg/dL Total Bilirubin 1.0 (0.2-1.3) mg/dL AST 41 H (14-36) IU/L ALT 26 (<35) IU/L Alkaline Phosphatase 183 H (38-126) U/L Ammonia < 9 L (9-30) umol/L Troponin I 0.045 H (0.01-0.034) ng/mL NT-Pro-B Natriuret Pep 5780 H (<125) pg/mL Total Protein 6.1 L (6.3-8.2) g/dL Albumin 2.8 L (3.5-5.0) g/dL Globulin 3.3 (1.7-4.1) g/dL Albumin/Globulin Ratio 0.8 L (1.0-2.8) Procalcitonin 0.149 (<0.5) ng/mL TSH 14.2 H (0.47-4.68) uIU/mL Urine Color Gabrielle Urine Appearance Slightly cloudy Urine pH 5.5 Normal (4.5-8.0) Ur Specific [place] 1.020 (1.000-1.035) Urine Protein 1+ H (Negative) Urine Glucose (UA) Trace H (Negative) g/dL Urine Ketones Trace H (NEGATIVE) Urine Occult Blood Negative (Negative) Urine Nitrate Positive H (Negative) Urine Bilirubin 2+ H (NEGATIVE) Ur Bilirubin Confirm Positive H (Negative) Urine Urobilinogen 4.0 H (0.2) E.U./dL Ur Leukocyte Esterase Negative (NEGATIVE) Urine RBC 0-1/hpf (0-5/HPF) Urine WBC 1-5/hpf (0-5/HPF) Ur Squamous Epith Cells 1-5 /hpf (0-5/HPF) Calcium Oxalate Crystal Few H Urine Bacteria Occasional (0-1) (None) Hyaline Casts 1-5/lpf (None) Urine Mucus 1+ H (Negative) Ur Culture Indicated? Cult not indicated Vol Urine Centrifuged 10ml (spun) U Opiates 300ng/mL cut Negative (Negative) Ur Oxycodone Screen Negative (Negative) Urine Methadone Screen Negative (Negative) Ur Barbiturates Screen Negative (Negative) U Tricyclic Antidepress Negative (Negative) Ur Phencyclidine Scrn Negative (Negative) Ur Amphetamines Screen Negative (Negative) U Methamphetamines Scrn Negative (Negative) Ur MDMA Scrn (Ecstasy) Negative (Negative) U Benzodiazepines Scrn Positive H (Negative) Urine Cocaine Screen Negative (Negative) U Marijuana (THC) Screen Negative (Negative) Urine Specific [place] Normal (Normal) Ethyl Alcohol < 10 ( - 10) mg/dL Ur Creatinine Normal (Normal) Blood Type A Positive Antibody Screen Negative 09/12/24 Range/Units 08:44 WBC (4.5-11.0) X10^3/uL RBC (4.0-5.2) X10^6/uL Hgb (12.0-16.0) g/dL Hct (36-46) % MCV (80-100) fL MCH (26-34) PG MCHC (30-36) % RDW (11.6-14.8) % Plt Count (150-400) X10^3/uL Neut % (Auto) (50-75) % Lymph % (Auto) (25-40) % [place] % (Auto) (3-14) % Eos % (Auto) (2-4) % Baso % (Auto) (0-2) % Neut # (Auto) (8028-8384) /uL Lymph # (Auto) (7508-2006) /uL [place] # (Auto) (0-900) /uL Eos # (Auto) (0-450) /uL Baso # (Auto) (0-100) /uL RBC Morphology Anisocytosis Microcytosis Schistocytes Sodium (137-145) mmol/L Potassium (3.4-5.1) mmol/L Chloride (98-107) mmol/L Carbon Dioxide (22-32) mmol/L BUN (7-17) mg/dL Creatinine (0.52-1.04) mg/dL Estimated GFR (>60) mL/min BUN/Creatinine Ratio (6-22) Glucose (70-100) mg/dL Lactate (0.7-2.1) mmol/L Calcium (8.4-10.2) mg/dL Magnesium (1.6-2.3) mg/dL Total Bilirubin (0.2-1.3) mg/dL AST (14-36) IU/L ALT (<35) IU/L Alkaline Phosphatase (38-126) U/L Ammonia (9-30) umol/L Troponin I 0.035 H (0.01-0.034) ng/mL NT-Pro-B Natriuret Pep (<125) pg/mL Total Protein (6.3-8.2) g/dL Albumin (3.5-5.0) g/dL Globulin (1.7-4.1) g/dL Albumin/Globulin Ratio (1.0-2.8) Procalcitonin (<0.5) ng/mL TSH (0.47-4.68) uIU/mL Urine Color Urine Appearance Urine pH (4.5-8.0) Ur Specific [place] (1.000-1.035) Urine Protein (Negative) Urine Glucose (UA) (Negative) g/dL Urine Ketones (NEGATIVE) Urine Occult Blood (Negative) Urine Nitrate (Negative) Urine Bilirubin (NEGATIVE) Ur Bilirubin Confirm (Negative) Urine Urobilinogen (0.2) E.U./dL Ur Leukocyte Esterase (NEGATIVE) Urine RBC (0-5/HPF) Urine WBC (0-5/HPF) Ur Squamous Epith Cells (0-5/HPF) Calcium Oxalate Crystal Urine Bacteria (None) Hyaline Casts (None) Urine Mucus (Negative) Ur Culture Indicated? Vol Urine Centrifuged U Opiates 300ng/mL cut (Negative) Ur Oxycodone Screen (Negative) Urine Methadone Screen (Negative) Ur Barbiturates Screen (Negative) U Tricyclic Antidepress (Negative) Ur Phencyclidine Scrn (Negative) Ur Amphetamines Screen (Negative) U Methamphetamines Scrn (Negative) Ur MDMA Scrn (Ecstasy) (Negative) U Benzodiazepines Scrn (Negative) Urine Cocaine Screen (Negative) U Marijuana (THC) Screen (Negative) Urine Specific [place] (Normal) Ethyl Alcohol ( - 10) mg/dL Ur Creatinine (Normal) Blood Type Antibody Screen Point of Care Testing Glucose POC 141 Point of care testing: Point of Care Testing Glucose POC 141 MDM Narrative Medical decision making narrative: CC: Weakness, failure to thrive, fall unable to get off the floor Complicating co-morbidities: Difficult social situation, alcohol use disorder, medication noncompliance, Data collected from: Medical records, medics Social determinants of health that may influence the patients condition: Multiple prior APS referrals Medical records reviewed: Discharge summary from August 24 with nausea vomiting, dehydration, urinary tract infection, colitis, alcohol dependence, metabolic acidosis and hypokalemia is reviewed Differential considered: Sepsis, acute anemia, encephalopathy, acute intoxication, urinary tract infection Exam documented above, pertinent findings include: Dramatically weak, pale, no obvious lung abnormalities, no tenderness palpation of her abdomen. No obvious GI bleeding. Minimally interactive with staff, she is protecting her airway Lab Test results independently reviewed as above. Pertinent findings: Independently reviewed EKG: Imaging studies independently reviewed: Consultations: Treatments: Re-evaluations: Discussion: <Garland Matos MD - Last Filed: 09/12/24 12:54> Lab Data Labs: Lab Results 09/12/24 09/12/24 09/12/24 Range/Units 06:19 06:30 06:30 WBC 10.6 (4.5-11.0) X10^3/uL RBC 3.99 L (4.0-5.2) X10^6/uL Hgb 10.9 L (12.0-16.0) g/dL Hct 32.2 L (36-46) % MCV 80.6 (80-100) fL MCH 27.2 (26-34) PG MCHC 33.7 (30-36) % RDW 22.0 H (11.6-14.8) % Plt Count 286 (150-400) X10^3/uL Neut % (Auto) 78.7 H (50-75) % Lymph % (Auto) 13.3 L (25-40) % [place] % (Auto) 7.4 (3-14) % Eos % (Auto) 0.1 L (2-4) % Baso % (Auto) 0.5 (0-2) % Neut # (Auto) 8300 H (4830-6357) /uL Lymph # (Auto) 1400 (6601-9515) /uL [place] # (Auto) 800 (0-900) /uL Eos # (Auto) 0 (0-450) /uL Baso # (Auto) 100 (0-100) /uL RBC Morphology See below Anisocytosis 3+ H Microcytosis 1+ H Schistocytes 1+ H Sodium 139 (137-145) mmol/L Potassium 3.3 L (3.4-5.1) mmol/L Chloride 113 H (98-107) mmol/L Carbon Dioxide 19 L (22-32) mmol/L BUN 25 H (7-17) mg/dL Creatinine 0.69 (0.52-1.04) mg/dL Estimated GFR > 60 (>60) mL/min BUN/Creatinine Ratio 36.2 H (6-22) Glucose 132 H (70-100) mg/dL Lactate 2.0 (0.7-2.1) mmol/L Calcium 9.0 (8.4-10.2) mg/dL Magnesium 2.0 (1.6-2.3) mg/dL Total Bilirubin 1.0 (0.2-1.3) mg/dL AST 41 H (14-36) IU/L ALT 26 (<35) IU/L Alkaline Phosphatase 183 H (38-126) U/L Ammonia < 9 L (9-30) umol/L Troponin I 0.045 H (0.01-0.034) ng/mL NT-Pro-B Natriuret Pep 5780 H (<125) pg/mL Total Protein 6.1 L (6.3-8.2) g/dL Albumin 2.8 L (3.5-5.0) g/dL Globulin 3.3 (1.7-4.1) g/dL Albumin/Globulin Ratio 0.8 L (1.0-2.8) Procalcitonin 0.149 (<0.5) ng/mL TSH 14.2 H (0.47-4.68) uIU/mL Urine Color Gabrielle Urine Appearance Slightly cloudy Urine pH 5.5 Normal (4.5-8.0) Ur Specific [place] 1.020 (1.000-1.035) Urine Protein 1+ H (Negative) Urine Glucose (UA) Trace H (Negative) g/dL Urine Ketones Trace H (NEGATIVE) Urine Occult Blood Negative (Negative) Urine Nitrate Positive H (Negative) Urine Bilirubin 2+ H (NEGATIVE) Ur Bilirubin Confirm Positive H (Negative) Urine Urobilinogen 4.0 H (0.2) E.U./dL Ur Leukocyte Esterase Negative (NEGATIVE) Urine RBC 0-1/hpf (0-5/HPF) Urine WBC 1-5/hpf (0-5/HPF) Ur Squamous Epith Cells 1-5 /hpf (0-5/HPF) Calcium Oxalate Crystal Few H Urine Bacteria Occasional (0-1) (None) Hyaline Casts 1-5/lpf (None) Urine Mucus 1+ H (Negative) Ur Culture Indicated? Cult not indicated Vol Urine Centrifuged 10ml (spun) U Opiates 300ng/mL cut Negative (Negative) Ur Oxycodone Screen Negative (Negative) Urine Methadone Screen Negative (Negative) Ur Barbiturates Screen Negative (Negative) U Tricyclic Antidepress Negative (Negative) Ur Phencyclidine Scrn Negative (Negative) Ur Amphetamines Screen Negative (Negative) U Methamphetamines Scrn Negative (Negative) Ur MDMA Scrn (Ecstasy) Negative (Negative) U Benzodiazepines Scrn Positive H (Negative) Urine Cocaine Screen Negative (Negative) U Marijuana (THC) Screen Negative (Negative) Urine Specific [place] Normal (Normal) Ethyl Alcohol < 10 ( - 10) mg/dL Ur Creatinine Normal (Normal) Blood Type A Positive Antibody Screen Negative 09/12/24 Range/Units 08:44 WBC (4.5-11.0) X10^3/uL RBC (4.0-5.2) X10^6/uL Hgb (12.0-16.0) g/dL Hct (36-46) % MCV (80-100) fL MCH (26-34) PG MCHC (30-36) % RDW (11.6-14.8) % Plt Count (150-400) X10^3/uL Neut % (Auto) (50-75) % Lymph % (Auto) (25-40) % [place] % (Auto) (3-14) % Eos % (Auto) (2-4) % Baso % (Auto) (0-2) % Neut # (Auto) (9781-6448) /uL Lymph # (Auto) (2970-2120) /uL [place] # (Auto) (0-900) /uL Eos # (Auto) (0-450) /uL Baso # (Auto) (0-100) /uL RBC Morphology Anisocytosis Microcytosis Schistocytes Sodium (137-145) mmol/L Potassium (3.4-5.1) mmol/L Chloride (98-107) mmol/L Carbon Dioxide (22-32) mmol/L BUN (7-17) mg/dL Creatinine (0.52-1.04) mg/dL Estimated GFR (>60) mL/min BUN/Creatinine Ratio (6-22) Glucose (70-100) mg/dL Lactate (0.7-2.1) mmol/L Calcium (8.4-10.2) mg/dL Magnesium (1.6-2.3) mg/dL Total Bilirubin (0.2-1.3) mg/dL AST (14-36) IU/L ALT (<35) IU/L Alkaline Phosphatase (38-126) U/L Ammonia (9-30) umol/L Troponin I 0.035 H (0.01-0.034) ng/mL NT-Pro-B Natriuret Pep (<125) pg/mL Total Protein (6.3-8.2) g/dL Albumin (3.5-5.0) g/dL Globulin (1.7-4.1) g/dL Albumin/Globulin Ratio (1.0-2.8) Procalcitonin (<0.5) ng/mL TSH (0.47-4.68) uIU/mL Urine Color Urine Appearance Urine pH (4.5-8.0) Ur Specific [place] (1.000-1.035) Urine Protein (Negative) Urine Glucose (UA) (Negative) g/dL Urine Ketones (NEGATIVE) Urine Occult Blood (Negative) Urine Nitrate (Negative) Urine Bilirubin (NEGATIVE) Ur Bilirubin Confirm (Negative) Urine Urobilinogen (0.2) E.U./dL Ur Leukocyte Esterase (NEGATIVE) Urine RBC (0-5/HPF) Urine WBC (0-5/HPF) Ur Squamous Epith Cells (0-5/HPF) Calcium Oxalate Crystal Urine Bacteria (None) Hyaline Casts (None) Urine Mucus (Negative) Ur Culture Indicated? Vol Urine Centrifuged U Opiates 300ng/mL cut (Negative) Ur Oxycodone Screen (Negative) Urine Methadone Screen (Negative) Ur Barbiturates Screen (Negative) U Tricyclic Antidepress (Negative) Ur Phencyclidine Scrn (Negative) Ur Amphetamines Screen (Negative) U Methamphetamines Scrn (Negative) Ur MDMA Scrn (Ecstasy) (Negative) U Benzodiazepines Scrn (Negative) Urine Cocaine Screen (Negative) U Marijuana (THC) Screen (Negative) Urine Specific [place] (Normal) Ethyl Alcohol ( - 10) mg/dL Ur Creatinine (Normal) Blood Type Antibody Screen Point of Care Testing Glucose POC 141 Point of care testing: Point of Care Testing Glucose POC 141 Imaging Data Chest x-ray: Radiologist's Impression: [address] [address] XRay Report Signed Patient: Rebekah Washington MR#: [id number] : 1970 Acct:[id number] Age/Sex: 54 / F Date of Service: 09/12/24 Loc: ED Accession Number: [id number] Procedure: XR chest 1V Ordering Provider: Kareen Kimbrough MD PROCEDURE: XR CHEST 1V INDICATIONS: Weakness, altered mental status TECHNIQUE: One view of the chest was acquired. COMPARISON: [facility], CR, XR CHEST 1V, 08/19/2024, 15:53. FINDINGS: Surgical changes and devices: None. Lungs and pleura: Lungs are clear. No pleural effusions or pneumothorax. Mediastinum: The cardiac contours are within normal limits. The aorta demonstrates calcification and tortuosity. Bones and chest wall: No suspicious bony lesions. Mild dextroconvex scoliotic curvature is seen. Age-appropriate bony degenerative changes are seen. Overlying soft tissues appear unremarkable. IMPRESSION: Clear lungs, without infiltrates. Dictated by: Ld Jimenez M.D. on 09/12/2024 at 6:05 Approved by: Ld Jimenez M.D. on 09/12/2024 at 6:06 CT scan - head: Radiologist's Impression: [address] [address] [address] Scan Report Signed Patient: Rebekah Washington MR#: [id number] : 1970 Acct:[id number] Age/Sex: 54 / F Date of Service: 09/12/24 Loc: ED Accession Number: [id number] Procedure: CT head/brain wo con Ordering Provider: Garland Matos MD PROCEDURE: CT HEAD/BRAIN WO CON INDICATIONS: Altered mental status TECHNIQUE: Noncontrast 4.5 mm thick angled axial sections acquired from the foramen magnum to the vertex, with coronal and sagittal reformats. For radiation dose reduction, the following was used: automated exposure control, adjustment of mA and/or kV according to patient size. COMPARISON: [facility], CT, CT ANGIO HEAD AND NECK, 09/12/2024, 8:01. [facility], CR, XR CHEST 1V, 09/12/2024, 6:32. [facility], CT, CT HEAD/BRAIN WO CON, 08/19/2024, 16:00. FINDINGS: Image quality: Diagnostic. CSF spaces: Basal cisterns are patent. No extra-axial fluid collections. Ventricles are normal in size and shape. Brain: No midline shift. No intracranial mass effect or hemorrhage. Deshpande-white matter interface is normal. Skull and face: Calvarium and visualized facial bones are intact, without suspicious lesions. Incidental note is made of hyperostosis frontalis. This is not considered to be pathologic in a woman of this age. Sinuses: Visualized sinuses and mastoids are clear. IMPRESSION: No imaging explanation is found for this patient's presenting symptoms. No acute intracranial hemorrhage is seen. To the limits of this noncontrast study, no findings of intracranial masses or mass effect can be seen. Dictated by: Ld Jimenez M.D. on 09/12/2024 at 8:00 Approved by: Ld Jimenez M.D. on 09/12/2024 at 8:01 CTA - brain/neck: Radiologist's Impression: [address] [address] [address] Scan Report Signed Patient: Rebekah Washington MR#: [id number] : 1970 Acct:[id number] Age/Sex: 54 / F Date of Service: 09/12/24 Loc: ED Accession Number: [id number] Procedure: CT angio head and neck Ordering Provider: Garland Matos MD PROCEDURE: CT ANGIO HEAD AND NECK INDICATIONS: Altered mental status TECHNIQUE: After the administration of intravenous contrast, 1 mm thick sections acquired from the aortic arch through the [place]. 3-dimensional jmqwogr-tcobqfqci-caqfmkeedh (MIP) and/or volume rendering reformats were acquired of the central intracranial vasculature and neck separately. For radiation dose reduction, the following was used: automated exposure control, adjustment of mA and/or kV according to patient size. COMPARISON: [facility], CT, CT HEAD/BRAIN WO CON, 08/19/2024, 16:00. [facility], CT, CT HEAD/BRAIN WO CON, 09/12/2024, 8:01. [facility], CT, CT CERVICAL SPINE WO CON, 01/02/2024, 22:48. FINDINGS: Image quality: There is artifact associated with the metallic hardware. Artifact from the metallic hardware is reduced by metal reconstruction algorithm. Limited by bolus timing, with venous contamination. BRAIN: CSF spaces: Ventricles are normal in size and shape. Basal cisterns are patent. No extra-axial fluid collections. Brain: No significant abnormality of the brain can be seen. Skull and face: Calvarium and facial bones appear intact, without suspicious lesions. Orbits appear normal. Sinuses: Sinuses and mastoids are clear. HEAD CT ANGIOGRAPHY: Anterior circulation: Intracranial internal carotid arteries are normal in size and flow. There is a diminutive left A1 segment, with a corresponding robust right A1 segment. This is considered to be a normal developmental variant of the [place] of [place], of typically no clinical consequence. There is also asymmetry of the anterior cerebral arteries, with the right anterior cerebral artery larger than the left. This is considered to be a developmental variant. The flow within the middle cerebral arteries is normal and symmetric. The anterior communicating artery is seen. No aneurysms are seen. Posterior circulation: Visualized portions of the vertebral arteries demonstrate normal caliber, and join to form a normal appearing basilar artery. Flow within the posterior cerebral arteries is normal and symmetric. No aneurysms are seen. NECK CT ANGIOGRAPHY: Carotid system: The great vessels demonstrate a conventional anatomy as they arise from the aortic arch. The origins of the common carotid arteries appear patent. The common carotid arteries demonstrate normal caliber and courses. The bifurcation regions are both widely patent. The internal carotid arteries demonstrate normal calibers and courses. Posterior circulation: The origins of the vertebral arteries both appear widely patent. Incidental note is made of a direct origin of the left vertebral artery from the aortic arch. The more superior extracranial portions of both vertebral arteries also demonstrate normal courses and calibers. They join to form a normal appearing basilar artery. Soft tissues: Visualized neck soft tissues demonstrate no suspicious abnormalities. Bones: No suspicious bony lesions. Visualized cervical spine appears normally aligned. Levoconvex cervical thoracic scoliotic curvature seen. IMPRESSION: No imaging explanation is found for this patient's presenting symptoms. No significant intracranial arterial abnormality is seen. No significant abnormality is seen within the arteries of the neck. Additional findings: Iknkxd-gd-Deymqk developmental anomalies. Levoconvex cervical thoracic scoliotic curvature Any quantitative measurements of stenosis were performed using NASCET criteria. Dictated by: Ld Jimenez M.D. on 09/12/2024 at 8:09 Approved by: Ld Jimenez M.D. on 09/12/2024 at 8:13 MDM Narrative Medical decision making narrative: CC: Weakness, failure to thrive, fall unable to get off the floor Complicating co-morbidities: Difficult social situation, alcohol use disorder, medication noncompliance, Data collected from: Medical records, medics Social determinants of health that may influence the patients condition: Multiple prior APS referrals Medical records reviewed: Discharge summary from August 24 with nausea vomiting, dehydration, urinary tract infection, colitis, alcohol dependence, metabolic acidosis and hypokalemia is reviewed Differential considered: Sepsis, acute anemia, encephalopathy, acute intoxication, urinary tract infection Exam documented above, pertinent findings include: Dramatically weak, pale, no obvious lung abnormalities, no tenderness palpation of her abdomen. No obvious GI bleeding. Minimally interactive with staff, she is protecting her airway Lab Test results independently reviewed as above. Pertinent findings: Sodium 139 potassium 3.3 bicarb 19 BUN 25 glucose 132 AST 41 ALT 26 ammonia less than 9 urinalysis positive nitrate negative leukocyte esterase alcohol negative Independently reviewed EKG: Sinus tachycardia rate 103 prolonged QT Imaging studies independently reviewed: Chest x-ray no acute finding, CT head CT angiogram head and neck no acute finding Consultations: 10:29 a.m.. I spoke with Cardiology Dr. Adkins, the troponin is nonspecific. Would not pursue cardiac pathway. Patient denies any chest pain or any recent cardiac symptoms. Treatments: Normal saline Re-evaluations: 10:25 a.m.. Patient is arousable to painful stimuli and loud voice. She denies denies any chest pain or recent chest pain or fall or injury. She does admit to benzodiazepine use. No SI or HI. Denies any fall or injury. Denies any history of heart attack. Discussion: September 12, 2024 at 7:[address] Matos: Sign out from Dr. Sootmayor, laboratory studies are pending. Patient will need likely social work evaluation for failure thrive. Laboratory studies are pending. Patient in no distress at this time. Possible benzodiazepine overdose. However patient hemodynamically stable. Maintaining airway. Appropriate for admission for observation for altered mental status and likely benzodiazepine overdose. Discharge Plan Departure Patient Disposition: Admitted As Inpatient Clinical Impression: Hypothermia Qualifiers: Encounter type: initial encounter Qualified Code(s): T68.XXXA - Hypothermia, initial encounter Altered mental state Qualifiers: Altered mental status type: unspecified Qualified Code(s): R41.82 - Altered mental status, unspecified Benzodiazepine overdose Qualifiers: Encounter type: initial encounter Injury intent: undetermined intent Qualified Code(s): T42.4X4A - Poisoning by benzodiazepines, undetermined, initial encounter Admit Date/Time: 09/12/24 10:37 Admit Provider: Tom Moreno V
--- NOTE | 2024-09-12 06:19 | EKG_ITS ---
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
--- NOTE | 2024-09-12 06:19 | DI.RAD.S_ITS ---
PROCEDURE: XR CHEST 1V INDICATIONS: Weakness, altered mental status TECHNIQUE: One view of the chest was acquired. COMPARISON: [facility], CR, XR CHEST 1V, 08/19/2024, 15:53. FINDINGS: Surgical changes and devices: None. Lungs and pleura: Lungs are clear. No pleural effusions or pneumothorax. Mediastinum: The cardiac contours are within normal limits. The aorta demonstrates calcification and tortuosity. Bones and chest wall: No suspicious bony lesions. Mild dextroconvex scoliotic curvature is seen. Age-appropriate bony degenerative changes are seen. Overlying soft tissues appear unremarkable. IMPRESSION: Clear lungs, without infiltrates. Dictated by: Ld Jimenez M.D. on 09/12/2024 at 6:05 Approved by: Ld Jimenez M.D. on 09/12/2024 at 6:06
[2024-09-12 06:45] LABS: Bilirubin Urine UA 2+ (NEGATIVE); Glucose Urine UA TRACE g/dL (Negative); Ketones Urine UA TRACE (NEGATIVE); Leukocyte Esterase Urine UA NEGATIVE (NEGATIVE); Nitrite Urine UA POSITIVE (Negative); Occult Blood Urine UA NEGATIVE (Negative); Protein Urine UA 1+ (Negative)
--- NOTE | 2024-09-12 06:56 | PC.NURSE ---
Patient arrives via EMS from home after called EMS. EMS states they are at their house everyday to every other day due to falls from excessive alcohol consumption. Upon arrival EMS states the patient had fallen, they tried to help her up but she was combative and stated she did not need their help. Patient had defecated herself. EMS states she is failure to thrive, feel the home is unsafe and patient is in need of group social worker at this time. Upon arrival patient was cleaned and sheets changed
[2024-09-12 07:12] LABS: Alanine Aminotransferase 26 IU/L (<35); Albumin 2.8 g/dL (3.5-5.0); Albumin Globulin Ratio 0.8 (1.0-2.8); Alkaline Phosphatase 183 U/L (38-126); Aspartate Aminotransferase 41 IU/L (14-36); BUN Creatinine Ratio 36.2 (6-22); Blood Urea Nitrogen 25 mg/dL (7-17); Carbon Dioxide 19 mmol/L (22-32); Chloride 113 mmol/L (98-107); Estimated Glomerular Filt Rate > 60 mL/min (>60); Globulin 3.3 g/dL (1.7-4.1); Glucose 132 mg/dL (70-100); HEMOLYSIS 40 (0-50); Potassium 3.3 mmol/L (3.4-5.1); Sodium 139 mmol/L (137-145); Total Protein 6.1 g/dL (6.3-8.2)
[2024-09-12 07:13] LABS: Ammonia (NH3) < 9 umol/L (9-30)
[2024-09-12 07:14] LABS: Ethanol (ETOH) < 10 mg/dL
[2024-09-12 07:17] LABS: Appearance Urine UA Slightly Cloudy; pH Urine UA 5.5 (4.5-8.0)
[2024-09-12 07:18] LABS: Color Urine UA Amber
[2024-09-12 07:20] LABS: Urine Volume 10mL (spun)
[2024-09-12 07:21] LABS: Bacteria Urine Occasional (0-1); Calcium Oxalate Crystals Urine Few; Culture Indicated Urine Cult Not Indicated; Mucus Urine 1+ (Negative); RBC Urine 0-1/HPF (0-5/HPF); Squamous Epithelial Cell Urine 1-5 /HPF (0-5/HPF); WBC Urine 1-5/HPF (0-5/HPF)
[2024-09-12 07:24] LABS: Hyaline Casts Urine 1-5/LPF; Ictotest Urine Positive (Negative)
[2024-09-12 07:27] LABS: NT-proBNP (BNP-Adult 18+) 5780 pg/mL (<125); Troponin I 0.045 ng/mL (0.01-0.034)
[2024-09-12 07:31] LABS: Procalcitonin 0.149 ng/mL (<0.5)
[2024-09-12 07:36] LABS: Add Manual Diff / Slide Review NO; Basophils Absolute Auto 100 /uL (0-100); Basophils Percent Auto 0.5 % (0-2); Eosinophils Absolute Auto 0 /uL (0-450); Eosinophils Percent Auto 0.1 % (2-4); Hematocrit 32.2 % (36-46); Hemoglobin 10.9 g/dL (12.0-16.0); Lymphocytes Absolute Auto 1400 /uL (1100-4500); Lymphocytes Percent Auto 13.3 % (25-40); Mean Corpuscular HGB Conc 33.7 % (30-36); Mean Corpuscular Hemoglobin 27.2 PG (26-34); Mean Corpuscular Volume 80.6 fL (80-100); Monocytes Absolute Auto 800 /uL (0-900); Monocytes Percent Auto 7.4 % (3-14); Neutrophils Absolute Auto 8300 /uL (1500-7000); Neutrophils Percent Auto 78.7 % (50-75); Platelet Count 286 X10^3/uL (150-400); Red Blood Cell Count 3.99 X10^6/uL (4.0-5.2); White Blood Cell Count 10.6 X10^3/uL (4.5-11.0)
--- NOTE | 2024-09-12 07:36 | DI.CT.S_ITS ---
PROCEDURE: CT HEAD/BRAIN WO CON INDICATIONS: Altered mental status TECHNIQUE: Noncontrast 4.5 mm thick angled axial sections acquired from the foramen magnum to the vertex, with coronal and sagittal reformats. For radiation dose reduction, the following was used: automated exposure control, adjustment of mA and/or kV according to patient size. COMPARISON: [facility], CT, CT ANGIO HEAD AND NECK, 09/12/2024, 8:01. [facility], CR, XR CHEST 1V, 09/12/2024, 6:32. [facility], CT, CT HEAD/BRAIN WO CON, 08/19/2024, 16:00. FINDINGS: Image quality: Diagnostic. CSF spaces: Basal cisterns are patent. No extra-axial fluid collections. Ventricles are normal in size and shape. Brain: No midline shift. No intracranial mass effect or hemorrhage. Deshpande-white matter interface is normal. Skull and face: Calvarium and visualized facial bones are intact, without suspicious lesions. Incidental note is made of hyperostosis frontalis. This is not considered to be pathologic in a woman of this age. Sinuses: Visualized sinuses and mastoids are clear. IMPRESSION: No imaging explanation is found for this patient's presenting symptoms. No acute intracranial hemorrhage is seen. To the limits of this noncontrast study, no findings of intracranial masses or mass effect can be seen. Dictated by: Ld Jimenez M.D. on 09/12/2024 at 8:00 Approved by: Ld Jimenez M.D. on 09/12/2024 at 8:01
--- NOTE | 2024-09-12 07:36 | DI.CT.S_ITS ---
PROCEDURE: CT ANGIO HEAD AND NECK INDICATIONS: Altered mental status TECHNIQUE: After the administration of intravenous contrast, 1 mm thick sections acquired from the aortic arch through the [place] of [place]. 3-dimensional hodqgum-wwrjahipk-rerwlucxgz (MIP) and/or volume rendering reformats were acquired of the central intracranial vasculature and neck separately. For radiation dose reduction, the following was used: automated exposure control, adjustment of mA and/or kV according to patient size. COMPARISON: [facility], CT, CT HEAD/BRAIN WO CON, 08/19/2024, 16:00. [facility], CT, CT HEAD/BRAIN WO CON, 09/12/2024, 8:01. [facility], CT, CT CERVICAL SPINE WO CON, 01/02/2024, 22:48. FINDINGS: Image quality: There is artifact associated with the metallic hardware. Artifact from the metallic hardware is reduced by metal reconstruction algorithm. Limited by bolus timing, with venous contamination. BRAIN: CSF spaces: Ventricles are normal in size and shape. Basal cisterns are patent. No extra-axial fluid collections. Brain: No significant abnormality of the brain can be seen. Skull and face: Calvarium and facial bones appear intact, without suspicious lesions. Orbits appear normal. Sinuses: Sinuses and mastoids are clear. HEAD CT ANGIOGRAPHY: Anterior circulation: Intracranial internal carotid arteries are normal in size and flow. There is a diminutive left A1 segment, with a corresponding robust right A1 segment. This is considered to be a normal developmental variant of the [place] of [place], of typically no clinical consequence. There is also asymmetry of the anterior cerebral arteries, with the right anterior cerebral artery larger than the left. This is considered to be a developmental variant. The flow within the middle cerebral arteries is normal and symmetric. The anterior communicating artery is seen. No aneurysms are seen. Posterior circulation: Visualized portions of the vertebral arteries demonstrate normal caliber, and join to form a normal appearing basilar artery. Flow within the posterior cerebral arteries is normal and symmetric. No aneurysms are seen. NECK CT ANGIOGRAPHY: Carotid system: The great vessels demonstrate a conventional anatomy as they arise from the aortic arch. The origins of the common carotid arteries appear patent. The common carotid arteries demonstrate normal caliber and courses. The bifurcation regions are both widely patent. The internal carotid arteries demonstrate normal calibers and courses. Posterior circulation: The origins of the vertebral arteries both appear widely patent. Incidental note is made of a direct origin of the left vertebral artery from the aortic arch. The more superior extracranial portions of both vertebral arteries also demonstrate normal courses and calibers. They join to form a normal appearing basilar artery. Soft tissues: Visualized neck soft tissues demonstrate no suspicious abnormalities. Bones: No suspicious bony lesions. Visualized cervical spine appears normally aligned. Levoconvex cervical thoracic scoliotic curvature seen. IMPRESSION: No imaging explanation is found for this patient's presenting symptoms. No significant intracranial arterial abnormality is seen. No significant abnormality is seen within the arteries of the neck. Additional findings: Ufcsgw-qi-Brbkmb developmental anomalies. Levoconvex cervical thoracic scoliotic curvature Any quantitative measurements of stenosis were performed using NASCET criteria. Dictated by: Ld Jimenez M.D. on 09/12/2024 at 8:09 Approved by: Ld Jimenez M.D. on 09/12/2024 at 8:13
[2024-09-12 07:48] LABS: Anisocytosis 3+
[2024-09-12 07:50] LABS: Microcytosis 1+; Schistocytes 1+
[2024-09-12 07:54] LABS: UR Morphine/Opiate cutoff 300 Negative (Negative); Ur Creatinine Normal (Normal); Ur Specific Gravity Normal (Normal); Urine Amphetamines Negative (Negative); Urine Barbiturates Negative (Negative); Urine Benzodiazepines Positive (Negative); Urine Cocaine Negative (Negative); Urine MDMA Negative (Negative); Urine Methadone Negative (Negative); Urine Methamphetamines Negative (Negative); Urine Oxycodone Negative (Negative); Urine Phencyclidine Negative (Negative); Urine Tetrahydrocannabinol Negative (Negative); Urine Tricyclic Antidepressant Negative (Negative); Urine pH Normal (Normal)
[2024-09-12 08:35] LABS: Thyroid Stimulating Hormone 14.2 uIU/mL (0.47-4.68)
[2024-09-12] MEDS: SODIUM CHLORIDE 0.9% 1,000 ML 1000 ML IV (08:48)
--- NOTE | 2024-09-12 09:06 | PC.NURSE ---
Pt mother states she was not making sense this morning. States pt is not self sufficient. Pt mother states she was on toilet for a long long time and c/o pain. Pt mother states a few days ago she was on the sofa and then on the floor; unwitnessed. Mother states she thinks she slid off the couch. Mother states her hips and butt were hurting. Mother states so then called paramedics. Pt nayan denies vomiting; states she has had some episodes of diarrhea--states she is not able to clean her self up at home. Pt mother states she has some pills at home but mother states she is unsure what type. [place]--?
--- NOTE | 2024-09-12 09:12 | PC.NURSE ---
Pt mother states she thinks daughter was complaining of burning when she urinates.
[2024-09-12 09:56] LABS: Troponin I 0.035 ng/mL (0.01-0.034)
--- NOTE | 2024-09-12 11:29 | PC.ADMIT ---
[email or web address] [facility] [address] Admission Note: Patient admitted from the ED via stretcher. No medications infusing. Patient unresponsive requiring sternal rubs to wake. Once awake, does not follow commands well and quickly falls back asleep. All vitals WDL. Admission assessment completed as best as possible. The patient,Rebekah Washington,54 y/o, was given written information regarding hospital policies, unit procedures and contact persons. Patient's smoking status: . Vital Signs - 8 hr 09/12/24 06:05 09/12/24 06:15 09/12/24 06:16 Temperature 95.6 F L Pulse Rate 108 H 110 H Respiratory Rate 20 Blood Pressure 136/58 L 140/100 H Pulse Oximetry 100 99 Oxygen Delivery Method Room Air 09/12/24 06:17 09/12/24 06:17 09/12/24 06:30 Temperature Pulse Rate 110 H Respiratory Rate Blood Pressure 136/85 128/88 Pulse Oximetry 100 Oxygen Delivery Method 09/12/24 06:30 09/12/24 07:00 09/12/24 07:00 Temperature 94.6 F L 96.3 F L Pulse Rate 104 H 104 H Respiratory Rate 22 17 Blood Pressure 114/84 Pulse Oximetry 100 99 Oxygen Delivery Method 09/12/24 07:05 09/12/24 07:30 09/12/24 07:30 Temperature 96.3 F L 96.6 F L Pulse Rate 101 H Respiratory Rate 20 Blood Pressure 90/68 Pulse Oximetry 98 Oxygen Delivery Method 09/12/24 07:37 09/12/24 07:37 09/12/24 07:45 Temperature Pulse Rate 101 H Respiratory Rate 21 Blood Pressure 95/63 94/63 Pulse Oximetry 98 Oxygen Delivery Method 09/12/24 07:45 09/12/24 08:00 09/12/24 08:00 Temperature 97.0 F L Pulse Rate 101 H 101 H Respiratory Rate 20 20 Blood Pressure 85/55 L Pulse Oximetry 98 98 Oxygen Delivery Method 09/12/24 08:03 09/12/24 08:03 09/12/24 08:13 Temperature Pulse Rate 101 H Respiratory Rate 20 Blood Pressure 78/56 L 97/66 Pulse Oximetry 98 Oxygen Delivery Method 09/12/24 08:13 09/12/24 08:14 09/12/24 08:14 Temperature 97.3 F L Pulse Rate 100 H 100 H Respiratory Rate 22 21 Blood Pressure 101/70 Pulse Oximetry 99 99 Oxygen Delivery Method 09/12/24 08:15 09/12/24 08:15 09/12/24 08:16 Temperature Pulse Rate 100 H Respiratory Rate 20 Blood Pressure 92/61 83/60 L Pulse Oximetry 99 Oxygen Delivery Method 09/12/24 08:16 09/12/24 08:26 09/12/24 08:26 Temperature 97.5 F L Pulse Rate 100 H 100 H Respiratory Rate 20 20 Blood Pressure 90/69 Pulse Oximetry 99 98 Oxygen Delivery Method 09/12/24 08:29 09/12/24 08:29 09/12/24 08:30 Temperature Pulse Rate 101 H 100 H Respiratory Rate 20 22 Blood Pressure 120/66 Pulse Oximetry 97 96 Oxygen Delivery Method 09/12/24 08:36 09/12/24 08:36 09/12/24 08:45 Temperature 97.2 F L Pulse Rate 101 H 99 H Respiratory Rate 19 Blood Pressure 126/75 Pulse Oximetry 98 100 Oxygen Delivery Method 09/12/24 08:45 09/12/24 09:00 09/12/24 09:00 Temperature Pulse Rate 103 H Respiratory Rate 19 Blood Pressure 119/79 119/86 Pulse Oximetry 100 Oxygen Delivery Method 09/12/24 09:15 09/12/24 09:15 09/12/24 09:30 Temperature 97.0 F L Pulse Rate 104 H 103 H Respiratory Rate 19 19 Blood Pressure 114/78 Pulse Oximetry 98 98 Oxygen Delivery Method 09/12/24 09:30 09/12/24 09:45 09/12/24 09:45 Temperature 96.8 F L Pulse Rate 98 H Respiratory Rate 20 Blood Pressure 115/79 107/75 Pulse Oximetry 98 Oxygen Delivery Method 09/12/24 10:00 09/12/24 10:00 09/12/24 10:15 Temperature 97.0 F L 97.3 F L Pulse Rate 96 H 94 H Respiratory Rate 20 21 Blood Pressure 111/66 Pulse Oximetry 100 99 Oxygen Delivery Method 09/12/24 10:15 09/12/24 10:30 09/12/24 10:30 Temperature Pulse Rate 93 H Respiratory Rate 16 Blood Pressure 91/54 L 120/84 Pulse Oximetry 99 Oxygen Delivery Method 09/12/24 10:45 09/12/24 10:45 09/12/24 11:00 Temperature Pulse Rate 95 H Respiratory Rate 19 Blood Pressure 108/73 99/66 Pulse Oximetry 99 Oxygen Delivery Method 09/12/24 11:00 Temperature 97.5 F L Pulse Rate 94 H Respiratory Rate 19 Blood Pressure Pulse Oximetry 99 Oxygen Delivery Method
--- NOTE | 2024-09-12 12:25 | P.HP_ITS ---
History of Present Illness History of Present Illness Date Patient Seen: 09/12/24 Time Patient Seen: 11:55 Chief complaint: failure to thrive/behavioral? Narrative: 54-year-old woman with history of alcohol use disorder and chronic benzodiazepine use reportedly fell last evening and was unable to get off the floor. History is obtained from the emergency department physician as the patient is unable to arouse to provide history. She reportedly lives in a home situation described as a unsafe and prior EPS reports has been filed. She had reportedly been drinking last evening and she fell and was unable to get up, and her called 911. She was described as pale, able to move but not interested in cooperating with exam or answering questions. Her urine tox screen returned positive for benzodiazepines. Evaluation was otherwise unremarkable, with no evidence of ingestion of other substances, and unremarkable neuro imaging. She is admitted for observation and further evaluation of suspected benzodiazepine overdose. [facility] Medical History Allergy (Unknown) Amenorrhea Anxiety (1989) Chronic back pain (Unknown) Chronic venous insufficiency Foot pain (2003) GERD (gastroesophageal reflux disease) (Unknown) Heavy menses (Unknown) IBS (irritable bowel syndrome) (1985) Neuropathy Obstructive sleep apnea (Unknown) Painful menstrual periods (Unknown) Restless leg syndrome (2014) Shoulder pain (Unknown) Vertigo (1979) Surgical History History of removal of laparoscopic gastric banding device (2014) Hx of laparoscopic gastric banding (2011) Hx of sinus surgery (2011) 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) Family History Grandmother Cancer Mental health problem Mother Age: 76 Mental health disorder Sister Age: 58 Heart disease Hypertension High cholesterol Mental health problem Asthma COPD (chronic obstructive pulmonary disease) Social History household members: spouse and family Tobacco: How many years used: 10 second hand exposure: No alcohol intake: current substance use type: does not use Meds Home Medications and Allergies Home Medications Medication Instructions Recorded Confirmed Type baclofen 20 mg tablet 20 mg PO TID PRN Muscle Spasm 7 08/14/21 08/21/24 Rx days #20 tabs escitalopram oxalate 20 mg tablet 20 mg PO DAILY #90 tabs 05/13/23 08/21/24 Rx clonazepam 0.5 mg tablet 0.5 mg PO BID PRN Anxiety #60 tabs 07/08/23 08/21/24 Rx dicyclomine 10 mg capsule 10 mg PO 4XD PRN IBS 07/09/23 08/21/24 History levothyroxine 75 mcg tablet 75 mcg PO DAILY Hypothyroidism 07/09/23 08/21/24 History ondansetron HCl 8 mg tablet 8 mg PO Q8HR PRN Nausea And 07/09/23 08/21/24 History Vomiting estradiol 0.5 mg tablet 0.5 mg PO DAILY Hormone 03/12/24 08/21/24 Rx replacement therapy #90 tabs progesterone micronized 100 mg 100 mg PO QAM Hormone replacement 03/12/24 08/21/24 Rx capsule (Prometrium) #90 caps pantoprazole 40 mg tablet,delayed 40 mg PO BID 30 days #60 tabs 08/20/24 08/21/24 Rx release albuterol sulfate 90 mcg/actuation 2 puff inhalation Q4H PRN wheezing 08/21/24 08/21/24 History aerosol inhaler hydrochlorothiazide 25 mg tablet 25 mg PO DAILY 08/21/24 08/21/24 History hydroxyzine HCl 50 mg tablet 50 mg PO Q6H PRN anxiety 08/21/24 08/21/24 History Allergies Allergy/AdvReac Type Severity Reaction Status Date / Time No Known Drug Allergies Allergy Verified 09/13/22 13:48 Review of Systems Review of Systems ROS: Yes All systems reviewed with the patient and are negative except as otherwise documented Exam Vital Signs (past 8 hours): - 09/12/24 06:05 09/12/24 06:15 09/12/24 06:16 Temperature 95.6 F L Pulse Rate 108 H 110 H Respiratory Rate 20 Blood Pressure 136/58 L 140/100 H Pulse Oximetry 100 99 Oxygen Delivery Method Room Air 09/12/24 06:17 09/12/24 06:17 09/12/24 06:30 Temperature Pulse Rate 110 H Respiratory Rate Blood Pressure 136/85 128/88 Pulse Oximetry 100 Oxygen Delivery Method 09/12/24 06:30 09/12/24 07:00 09/12/24 07:00 Temperature 94.6 F L 96.3 F L Pulse Rate 104 H 104 H Respiratory Rate 22 17 Blood Pressure 114/84 Pulse Oximetry 100 99 Oxygen Delivery Method 09/12/24 07:05 09/12/24 07:30 09/12/24 07:30 Temperature 96.3 F L 96.6 F L Pulse Rate 101 H Respiratory Rate 20 Blood Pressure 90/68 Pulse Oximetry 98 Oxygen Delivery Method 09/12/24 07:37 09/12/24 07:37 09/12/24 07:45 Temperature Pulse Rate 101 H Respiratory Rate 21 Blood Pressure 95/63 94/63 Pulse Oximetry 98 Oxygen Delivery Method 09/12/24 07:45 09/12/24 08:00 09/12/24 08:00 Temperature 97.0 F L Pulse Rate 101 H 101 H Respiratory Rate 20 20 Blood Pressure 85/55 L Pulse Oximetry 98 98 Oxygen Delivery Method 09/12/24 08:03 09/12/24 08:03 09/12/24 08:13 Temperature Pulse Rate 101 H Respiratory Rate 20 Blood Pressure 78/56 L 97/66 Pulse Oximetry 98 Oxygen Delivery Method 09/12/24 08:13 09/12/24 08:14 09/12/24 08:14 Temperature 97.3 F L Pulse Rate 100 H 100 H Respiratory Rate 22 21 Blood Pressure 101/70 Pulse Oximetry 99 99 Oxygen Delivery Method 09/12/24 08:15 09/12/24 08:15 09/12/24 08:16 Temperature Pulse Rate 100 H Respiratory Rate 20 Blood Pressure 92/61 83/60 L Pulse Oximetry 99 Oxygen Delivery Method 09/12/24 08:16 09/12/24 08:26 09/12/24 08:26 Temperature 97.5 F L Pulse Rate 100 H 100 H Respiratory Rate 20 20 Blood Pressure 90/69 Pulse Oximetry 99 98 Oxygen Delivery Method 09/12/24 08:29 09/12/24 08:29 09/12/24 08:30 Temperature Pulse Rate 101 H 100 H Respiratory Rate 20 22 Blood Pressure 120/66 Pulse Oximetry 97 96 Oxygen Delivery Method 09/12/24 08:36 09/12/24 08:36 09/12/24 08:45 Temperature 97.2 F L Pulse Rate 101 H 99 H Respiratory Rate 19 Blood Pressure 126/75 Pulse Oximetry 98 100 Oxygen Delivery Method 09/12/24 08:45 09/12/24 09:00 09/12/24 09:00 Temperature Pulse Rate 103 H Respiratory Rate 19 Blood Pressure 119/79 119/86 Pulse Oximetry 100 Oxygen Delivery Method 09/12/24 09:15 09/12/24 09:15 09/12/24 09:30 Temperature 97.0 F L Pulse Rate 104 H 103 H Respiratory Rate 19 19 Blood Pressure 114/78 Pulse Oximetry 98 98 Oxygen Delivery Method 09/12/24 09:30 09/12/24 09:45 09/12/24 09:45 Temperature 96.8 F L Pulse Rate 98 H Respiratory Rate 20 Blood Pressure 115/79 107/75 Pulse Oximetry 98 Oxygen Delivery Method 09/12/24 10:00 09/12/24 10:00 09/12/24 10:15 Temperature 97.0 F L 97.3 F L Pulse Rate 96 H 94 H Respiratory Rate 20 21 Blood Pressure 111/66 Pulse Oximetry 100 99 Oxygen Delivery Method 09/12/24 10:15 09/12/24 10:30 09/12/24 10:30 Temperature Pulse Rate 93 H Respiratory Rate 16 Blood Pressure 91/54 L 120/84 Pulse Oximetry 99 Oxygen Delivery Method 09/12/24 10:45 09/12/24 10:45 09/12/24 10:46 Temperature Pulse Rate 95 H Respiratory Rate 19 Blood Pressure 108/73 Pulse Oximetry 99 Oxygen Delivery Method Room Air 09/12/24 11:00 09/12/24 11:00 Temperature 97.5 F L Pulse Rate 94 H Respiratory Rate 19 Blood Pressure 99/66 Pulse Oximetry 99 Oxygen Delivery Method Oxygen Delivery Method Room Air Narrative Exam Narrative: GENERAL: This is a sleeping, thin, frail-appearing female with unlabored breathing in no apparent distress. She does not open her eyes to voice or follow command. EYES: Pupils 3 mm equal round and reactive. Extraocular motions intact. No scleral icterus. No injection or drainage. Blink reflex intact. ENT: Mucous membranes pink and moist. NECK: Trachea midline. No JVD, bruits or lymphadenopathy. Supple, nontender, no meningeal signs. CARDIOVASCULAR: Regular rate and rhythm without murmurs, gallops, or rubs. RESPIRATORY: Clear to auscultation. GASTROINTESTINAL: Abdomen soft, non-tender, nondistended. EXTREMITIES: No clubbing, cyanosis, or edema. BACK: Nontender without deformity or crepitance. No flank tenderness. NEUROLOGIC: Alert, oriented, speech fluent, full upper and lower motor strength, no focal deficits evident. DERMATOLOGIC: No rashes or skin lesions. No external evidence of trauma per nursing intake evaluation in review with nursing staff. Objective ECG Impression: Sinus tachycardia at 103bpm Abnormal QRS-T angle, consider primary T wave abnormality Prolonged QTc 534msec Imaging CT scan - head: Radiologist's impression: No imaging explanation is found for this patient's presenting symptoms. No acute intracranial hemorrhage is seen. To the limits of this noncontrast study, no findings of intracranial masses or mass effect can be seen. Head/neck CTA: Radiologist's impression: No imaging explanation is found for this patient's presenting symptoms. No significant intracranial arterial abnormality is seen. No significant abnormality is seen within the arteries of the neck. Additional findings: [id number] developmental anomalies. Levoconvex cervical thoracic scoliotic curvature Chest x-ray: Radiologist's impression: Clear lungs, without infiltrates. Labs 09/12/24 06:30 09/12/24 06:30 Labs: Laboratory Results - last 24 hr 09/12/24 09/12/24 09/12/24 06:19 06:30 06:30 WBC 10.6 RBC 3.99 L Hgb 10.9 L Hct 32.2 L MCV 80.6 MCH 27.2 MCHC 33.7 RDW 22.0 H Plt Count 286 Neut % (Auto) 78.7 H Lymph % (Auto) 13.3 L [place] % (Auto) 7.4 Eos % (Auto) 0.1 L Baso % (Auto) 0.5 Neut # (Auto) 8300 H Lymph # (Auto) 1400 [place] # (Auto) 800 Eos # (Auto) 0 Baso # (Auto) 100 RBC Morphology See below Anisocytosis 3+ H Microcytosis 1+ H Schistocytes 1+ H Sodium 139 Potassium 3.3 L Chloride 113 H Carbon Dioxide 19 L BUN 25 H Creatinine 0.69 Estimated GFR > 60 BUN/Creatinine Ratio 36.2 H Glucose 132 H Lactate 2.0 Calcium 9.0 Magnesium 2.0 Total Bilirubin 1.0 AST 41 H ALT 26 Alkaline Phosphatase 183 H Ammonia < 9 L Troponin I 0.045 H NT-Pro-B Natriuret Pep 5780 H Total Protein 6.1 L Albumin 2.8 L Globulin 3.3 Albumin/Globulin Ratio 0.8 L Procalcitonin 0.149 TSH 14.2 H Urine Color Gabrielle Urine Appearance Slightly cloudy Urine pH 5.5 Normal Ur Specific [place] 1.020 Urine Protein 1+ H Urine Glucose (UA) Trace H Urine Ketones Trace H Urine Occult Blood Negative Urine Nitrate Positive H Urine Bilirubin 2+ H Ur Bilirubin Confirm Positive H Urine Urobilinogen 4.0 H Ur Leukocyte Esterase Negative Urine RBC 0-1/hpf Urine WBC 1-5/hpf Ur Squamous Epith Cells 1-5 /hpf Calcium Oxalate Crystal Few H Urine Bacteria Occasional (0-1) Hyaline Casts 1-5/lpf Urine Mucus 1+ H Ur Culture Indicated? Cult not indicated Vol Urine Centrifuged 10ml (spun) U Opiates 300ng/mL cut Negative Ur Oxycodone Screen Negative Urine Methadone Screen Negative Ur Barbiturates Screen Negative U Tricyclic Antidepress Negative Ur Phencyclidine Scrn Negative Ur Amphetamines Screen Negative U Methamphetamines Scrn Negative Ur MDMA Scrn (Ecstasy) Negative U Benzodiazepines Scrn Positive H Urine Cocaine Screen Negative U Marijuana (THC) Screen Negative Urine Specific [place] Normal Ethyl Alcohol < 10 Ur Creatinine Normal Blood Type A Positive Antibody Screen Negative 09/12/24 08:44 WBC RBC Hgb Hct MCV MCH MCHC RDW Plt Count Neut % (Auto) Lymph % (Auto) [place] % (Auto) Eos % (Auto) Baso % (Auto) Neut # (Auto) Lymph # (Auto) [place] # (Auto) Eos # (Auto) Baso # (Auto) RBC Morphology Anisocytosis Microcytosis Schistocytes Sodium Potassium Chloride Carbon Dioxide BUN Creatinine Estimated GFR BUN/Creatinine Ratio Glucose Lactate Calcium Magnesium Total Bilirubin AST ALT Alkaline Phosphatase Ammonia Troponin I 0.035 H NT-Pro-B Natriuret Pep Total Protein Albumin Globulin Albumin/Globulin Ratio Procalcitonin TSH Urine Color Urine Appearance Urine pH Ur Specific [place] Urine Protein Urine Glucose (UA) Urine Ketones Urine Occult Blood Urine Nitrate Urine Bilirubin Ur Bilirubin Confirm Urine Urobilinogen Ur Leukocyte Esterase Urine RBC Urine WBC Ur Squamous Epith Cells Calcium Oxalate Crystal Urine Bacteria Hyaline Casts Urine Mucus Ur Culture Indicated? Vol Urine Centrifuged U Opiates 300ng/mL cut Ur Oxycodone Screen Urine Methadone Screen Ur Barbiturates Screen U Tricyclic Antidepress Ur Phencyclidine Scrn Ur Amphetamines Screen U Methamphetamines Scrn Ur MDMA Scrn (Ecstasy) U Benzodiazepines Scrn Urine Cocaine Screen U Marijuana (THC) Screen Urine Specific [place] Ethyl Alcohol Ur Creatinine Blood Type Antibody Screen Assessment & Plan Assessment & Plan narrative: 1. Altered mental status, suspected benzodiazepine overdose. Possibly potentiated by concomitant reported alcohol use, with negative alcohol level on admission. Monitor with frequent neurologic checks and avoid further sedatives. 2. Alcohol and substance abuse disorder. Monitor for substance abuse withdrawal syndrome. She may require benzodiazepine taper. 3. Chronic anxiety with panic attacks. Continue routine therapy. 4. History of urinary retention. Continue Sampson catheterization placed in the ER. Discontinue in morning and monitor. 5. Code status: Full code. Reviewed on admission. Plan: -admit to observation status -monitor for withdrawal symptoms -serial exams Quality MIPS - Admit I confirm the patient?s Advance Care Plan is present, Code status is documented, Surrogate decision maker is in patient?s record [If Yes, STOP here]: Yes MIPS - Meds 'Current medications' to include all prescriptions, [id number] products, herbals, cannabis/cannabidiol products, and vitamin/mineral/dietary (nutritional) supplements. I have utilized all available resources to obtain, update, or review the patient?s current medications. [If Yes, STOP here]: Yes PROFEE [employer] Admissions Representative Document charge(s): No Charge Codes Initial inpatient/observation care: 40599
[2024-09-12] MEDS: DEXTROSE 5%-0.45% NS 1,000 ML 100 ML IV ×2 (12:37→21:56)
[2024-09-12 12:55] LABS: Adenovirus F 40/41 Not Detected (Not Detect); Astrovirus Not Detected (Not Detect); Campylobacter Not Detected (Not Detect); Clostridium difficile toxin AB Not Detected (Not Detect); Cryptosporidium Not Detected (Not Detect); Cyclospora cayetanensis Not Detected (Not Detect); Entamoeba histolytica Not Detected (Not Detect); Enteroaggregative E.coli Not Detected (Not Detect); Enteropathogenic E.coli Not Detected (Not Detect); Enterotoxigenic E.coli It/st Not Detected (Not Detect); Giardia lamblia Not Detected (Not Detect); Norovirus GI/GII Not Detected (Not Detect); Plesiomonsa shigelloides Not Detected (Not Detect); Rotavirus A Not Detected (Not Detect); Salmonella Not Detected (Not Detect); Sapovirus Not Detected (Not Detect); Shiga-like toxin-prod E.coli Not Detected (Not Detect); Shigella/Enteroinvasive E.coli Not Detected (Not Detect); Vibrio Not Detected (Not Detect); Vibrio cholerae Not Detected (Not Detect); Yersinia enterocolitica Not Detected (Not Detect)
[2024-09-12 13:18] LABS: MRSA (Nasal) PCR NOT DETECTED (Not Detect)
--- NOTE | 2024-09-12 18:37 | PC.NURSE ---
1830 - Patient awake and able to answer questions. Oriented to everything except date and day of the week. Able to express wants and needs.
[2024-09-12] MEDS: MORPHINE 4 MG/ML INJ IV (22:36)
[2024-09-12] MEDS: HALOPERIDOL 5 MG/ML VIAL IV (22:36)
--- NOTE | 2024-09-12 23:01 | PC.NURSE ---
Addendum entered by Carla Rocha R.N. 09/13/24 06:35: Patient slept after receiving the morphine and Haldol. Was cooperative with am labor union business representative (although unable to draw) and with changing brief again from small stool. 500ml UOP. Original Note: Insight Director Notes-Patient woke at 1999, drowsy but oriented to place and month. Requested something to eat, stated turkey sandwich is fine Set up for patient and brought her scheduled PO Protonix and PO Tylenol for butt pain When at bedside with meds, patient declined them saying I can't swallow them [place] untouched. Patient nods off during care. Around 2129, visited, he was tearful saying I don't know what to do with this behavior. Patient was also crying, did not open eyes or interact with him except to say I can't do this anymore and continues to saying It hurts. It hurts After left room, staff assessed skin, buttocks, and brief for stool, she was incontinent moderate loose [place] stool. Yelling, thrashing, and uncooperative during changing. 1cm pink abrasion on left buttock noted, barrier cream placed on all of buttocks. Unable to obtain photo do to patient swinging and thrashing. Patient continued to yell You're hurting me even when staff out of room. Patient was very difficult to console. CO reached out to NOC Hospitalist. Morphine 4mg IV x 1 dose and Haldol 5mg x1 dose ordered and given-see Emar. Patient rested until 2314, woke up moaning. When I entered room to assist patient, she yelled Just go away and leave me alone Patient is attached to oxymeter, sats 100%, HR around 100, BP 99/70, Temp Sampson 98.2, D51/2NS @ 100ml/hr. Bed alarm on, curtain open for continued observation.
[2024-09-13] VITALS (57 sets, daily range): BP systolic 100–126; BP diastolic 70–86; PULSE 92–116; RESP 18–22; TEMP 36.4–37.5; O2SAT 97–100
[2024-09-13] MEDS: DEXTROSE 5%-0.45% NS 1,000 ML 100 ML IV (07:46)
--- NOTE | 2024-09-13 07:53 | P.PN_ITS ---
Subjective Subjective Date Patient Seen: 09/13/24 Time Patient Seen: 07:50 Interval history: Narrative: 54-year-old woman with history of alcohol use disorder and chronic benzodiazepine use reportedly fell last evening and was unable to get off the floor. History is obtained from the emergency department physician as the patient is unable to arouse to provide history. She reportedly lives in a home situation described as a unsafe and prior EPS reports has been filed. She had reportedly been drinking last evening and she fell and was unable to get up, and her called 911. She was described as pale, able to move but not interested in cooperating with exam or answering questions. Her urine tox screen returned positive for benzodiazepines. Evaluation was otherwise unremarkable, with no evidence of ingestion of other substances, and unremarkable neuro imaging. She is admitted for observation and further evaluation of suspected benzodiazepine overdose. Subjective: Patient is awake, appears calm, in has no complaints. She has not sure why she is in the hospital. She states she did not take excessive benzodiazepines. She states she wishes to go home. She admits she is very weak and has not gotten up and days. Exam Vital Signs (past 8 hours): - 09/13/24 00:00 09/13/24 00:24 09/13/24 00:24 Temperature 98.2 F 98.2 F 98.2 F Pulse Rate 94 H 94 H 92 H Blood Pressure 100/70 Pulse Oximetry 100 99 100 Oxygen Flow Rate 0 09/13/24 00:24 09/13/24 00:30 09/13/24 01:00 Temperature 98.2 F 98.1 F Pulse Rate 94 H 95 H Blood Pressure 100/70 Pulse Oximetry 100 98 Oxygen Flow Rate 09/13/24 01:30 09/13/24 02:00 09/13/24 02:30 Temperature 97.7 F 97.9 F 98.2 F Pulse Rate 99 H 98 H 98 H Blood Pressure Pulse Oximetry 100 100 98 Oxygen Flow Rate 09/13/24 03:00 09/13/24 03:30 09/13/24 04:00 Temperature 98.4 F 98.4 F 98.4 F Pulse Rate 98 H 100 H 102 H Blood Pressure Pulse Oximetry 100 100 97 Oxygen Flow Rate 09/13/24 04:30 09/13/24 05:00 09/13/24 05:00 Temperature 98.2 F 98.1 F 98.1 F Pulse Rate 97 H 98 H 99 H Blood Pressure 126/83 Pulse Oximetry 99 100 100 Oxygen Flow Rate 0 09/13/24 05:08 09/13/24 05:08 Temperature 98.1 F Pulse Rate 99 H Blood Pressure 126/83 Pulse Oximetry 100 Oxygen Flow Rate Oxygen Delivery Method Room Air Oxygen Flow Rate 0 Narrative Exam Narrative: GENERAL: This is a sleeping, thin, frail-appearing female, alert, appears calm, responds appropriately to questions. EYES: Pupils 3 mm equal round and reactive. Extraocular motions intact. No scleral icterus. No injection or drainage. ENT: Mucous membranes pink and moist. NECK: Trachea midline. No JVD, bruits or lymphadenopathy. Supple, nontender, no meningeal signs. CARDIOVASCULAR: Regular rate and rhythm without murmurs, gallops, or rubs. RESPIRATORY: Clear to auscultation. GASTROINTESTINAL: Abdomen soft, non-tender, nondistended. EXTREMITIES: No clubbing, cyanosis, or edema. NEUROLOGIC: Alert, oriented, speech fluent, full upper and lower motor strength, no focal deficits evident. DERMATOLOGIC: No rashes or skin lesions. Objective ECG Impression: Sinus tachycardia at 103bpm Abnormal QRS-T angle, consider primary T wave abnormality Prolonged QTc 534msec 09/[address] scan - head: Radiologist's impression: No imaging explanation is found for this patient's presenting symptoms. No acute intracranial hemorrhage is seen. To the limits of this noncontrast study, no findings of intracranial masses or mass effect can be seen. 09/12 Head/neck CTA: Radiologist's impression: No imaging explanation is found for this patient's presenting symptoms. No significant intracranial arterial abnormality is seen. No significant abnormality is seen within the arteries of the neck. Additional findings: [id number] developmental anomalies. Levoconvex cervical thoracic scoliotic curvature 09/12 Chest x-ray: Radiologist's impression: Clear lungs, without infiltrates. 09/12 Labs 09/12/24 06:30 09/12/24 06:30 Labs: Laboratory Results - last 24 hr 09/12/24 09/12/24 09/12/24: 06:30 08:44 RBC Morphology See below Anisocytosis 3+ H Microcytosis 1+ H Schistocytes 1+ H Troponin I 0.035 H TSH 14.2 H Nasal Screen MRSA (PCR) Stl C. cayetanensis PCR Stool Rotavirus (PCR) Stool Adenovirus (PCR) Stool Astrovirus (PCR) Stool Cryptosporidium PCR Stl E.coli Shiga Tox PCR St Sh/Enteroin Ecoli PCR Stl Enterotoxigenic E PCR Stool EPEC (PCR) Stl E. histolytica PCR Stool Giardia Lamblia PCR Stool Sapovirus (PCR) Stl P. shigelloides PCR St Y.enterocolitica PCR Stool Vibrio (PCR) Stl Vibrio cholerae PCR Stl Enteroaggr Ecoli PCR Stl Norovirus GI/GII PCR U Opiates 300ng/mL cut Negative Ur Oxycodone Screen Negative Urine Methadone Screen Negative Ur Barbiturates Screen Negative U Tricyclic Antidepress Negative Ur Phencyclidine Scrn Negative Ur Amphetamines Screen Negative U Methamphetamines Scrn Negative Ur MDMA Scrn (Ecstasy) Negative U Benzodiazepines Scrn Positive H Urine Cocaine Screen Negative U Marijuana (THC) Screen Negative Urine pH Normal Urine Specific [place] Normal Ur Creatinine Normal Campylobacter (PCR) C. difficile Tox (PCR) Salmonella (PCR) Blood Type A Positive Antibody Screen Negative 09/12/24 09/12/24 11:30 11:45 RBC Morphology Anisocytosis Microcytosis Schistocytes Troponin I TSH Nasal Screen MRSA (PCR) Not detected Stl C. cayetanensis PCR Not detected Stool Rotavirus (PCR) Not detected Stool Adenovirus (PCR) Not detected Stool Astrovirus (PCR) Not detected Stool Cryptosporidium PCR Not detected Stl E.coli Shiga Tox PCR Not detected St Sh/Enteroin Ecoli PCR Not detected Stl Enterotoxigenic E PCR Not detected Stool EPEC (PCR) Not detected Stl E. histolytica PCR Not detected Stool Giardia Lamblia PCR Not detected Stool Sapovirus (PCR) Not detected Stl P. shigelloides PCR Not detected St Y.enterocolitica PCR Not detected Stool Vibrio (PCR) Not detected Stl Vibrio cholerae PCR Not detected Stl Enteroaggr Ecoli PCR Not detected Stl Norovirus GI/GII PCR Not detected U Opiates 300ng/mL cut Ur Oxycodone Screen Urine Methadone Screen Ur Barbiturates Screen U Tricyclic Antidepress Ur Phencyclidine Scrn Ur Amphetamines Screen U Methamphetamines Scrn Ur MDMA Scrn (Ecstasy) U Benzodiazepines Scrn Urine Cocaine Screen U Marijuana (THC) Screen Urine pH Urine Specific [place] Ur Creatinine Campylobacter (PCR) Not detected C. difficile Tox (PCR) Not detected Salmonella (PCR) Not detected Blood Type Antibody Screen PENDING S[facility] TO [facility] Medical History Allergy (Unknown) Amenorrhea Anxiety (1989) Chronic back pain (Unknown) Chronic venous insufficiency Foot pain (2003) GERD (gastroesophageal reflux disease) (Unknown) Heavy menses (Unknown) IBS (irritable bowel syndrome) (1985) Neuropathy Obstructive sleep apnea (Unknown) Painful menstrual periods (Unknown) Restless leg syndrome (2014) Shoulder pain (Unknown) Vertigo (1979) Surgical History History of removal of laparoscopic gastric banding device (2014) Hx of laparoscopic gastric banding (2011) Hx of sinus surgery (2011) 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) Family History Grandmother Cancer Mental health problem Mother Age: 76 Mental health disorder Sister Age: 58 Heart disease Hypertension High cholesterol Mental health problem Asthma COPD (chronic obstructive pulmonary disease) Social History household members: spouse and family Tobacco: How many years used: 10 second hand exposure: No alcohol intake: current substance use type: does not use Assessment & Plan Assessment & Plan narrative: 1. Altered mental status, suspected benzodiazepine overdose. Possibly potentiated by concomitant reported alcohol use, with negative alcohol level on admission. Clinically resolved, alert, appropriate today. Consult physical therapy for weakness. Stop IV fluids and remove urinary catheter. 2. Alcohol and substance abuse disorder. Monitor for substance abuse withdrawal syndrome. She may require benzodiazepine taper. 3. Chronic anxiety with panic attacks. Continue routine therapy. 4. History of urinary retention. Discontinue i urinary catheter and monitor. 5. Borderline elevated troponin, likely demand ischemia. Asymptomatic. 6. Code status: Full code. Reviewed on admission. Plan: -stop IV fluids -remove Sampson catheter -Monitor for withdrawal symptoms -possible discharge 1-2 days when able to ambulate and safe for discharge. PROFEE Hansard Reporter Document charge(s): No Charge Codes Subsequent inpatient/observation care: 11784
[2024-09-13 08:22] LABS: Add Manual Diff / Slide Review NO; Basophils Absolute Auto 100 /uL (0-100); Basophils Percent Auto 1.1 % (0-2); Eosinophils Absolute Auto 100 /uL (0-450); Eosinophils Percent Auto 1.8 % (2-4); Hematocrit 28.1 % (36-46); Hemoglobin 9.5 g/dL (12.0-16.0); Lymphocytes Absolute Auto 1900 /uL (1100-4500); Lymphocytes Percent Auto 24.6 % (25-40); Mean Corpuscular HGB Conc 33.6 % (30-36); Mean Corpuscular Hemoglobin 27.3 PG (26-34); Mean Corpuscular Volume 81.3 fL (80-100); Monocytes Absolute Auto 600 /uL (0-900); Monocytes Percent Auto 7.8 % (3-14); Neutrophils Absolute Auto 5100 /uL (1500-7000); Neutrophils Percent Auto 64.7 % (50-75); Platelet Count 207 X10^3/uL (150-400); Red Blood Cell Count 3.46 X10^6/uL (4.0-5.2); Red Cell Distribution Width 21.9 % (11.6-14.8); White Blood Cell Count 7.8 X10^3/uL (4.5-11.0)
[2024-09-13 08:31] LABS: BUN Creatinine Ratio 31.1 (6-22); Blood Urea Nitrogen 14 mg/dL (7-17); Calcium 7.8 mg/dL (8.4-10.2); Carbon Dioxide 21 mmol/L (22-32); Chloride 112 mmol/L (98-107); Estimated Glomerular Filt Rate > 60 mL/min (>60); Glucose 111 mg/dL (70-100); HEMOLYSIS < 15 (0-50); Potassium 2.8 mmol/L (3.4-5.1); Sodium 135 mmol/L (137-145)
[2024-09-13 08:33] LABS: Anisocytosis 2+
[2024-09-13 08:34] LABS: Microcytosis 1+
[2024-09-13 08:43] LABS: Troponin I 0.053 ng/mL (0.01-0.034)
--- NOTE | 2024-09-13 09:02 | PT-IP ANOTE ---
PT consult received. PT reviews chart and checks in with pt who wishing to eat her breakfast. She reports some pain in my butt today and her HR at rest is 106-119 BPM. Will con't PT efforts.
[2024-09-13] MEDS: hydroCHLOROthiazide 25 MG TABLET PO (09:09)
[2024-09-13] MEDS: ESCITALOPRAM 10 MG TABLET 20 MG PO (09:09)
[2024-09-13] MEDS: PANTOPRAZOLE DR 40 MG TABLET PO (09:09)
--- NOTE | 2024-09-13 09:22 | PC.NURSE ---
0758 - Dextrose 5%-0.45% NS 1000 ml: infusion stopped and completed.
--- NOTE | 2024-09-13 10:20 | CM.DANOTE ---
Patient is a 54 yo female who was admitted OBS Status on 09/12/24 for AMS/Benzo overdose. Pt has LESLEY CARRERO for insurance and her PCP is Dr. Barry Em at [facility]. EMR was reviewed. Per , pt with hx of ETOH abuse and withdrawals, hx of hashimotos, anxiety and depression. Pt last admitted 01/03/24 for Abd Pain/AMS and then recently admitted end of July 2024 for Acute Encephalopathy and Poss GI Bleed and was able to d/c home with resources for TOBIAS supports and tx and pt did not follow up on these resources. Pt with chronic weakness from being sedentary. SW met bedside with pt and explained role and pt confirms she still lives at home in [place] in a condo with her spouse, who is a splicer machine operator ETOH drinker, and also her elderly mother that they are the caregiver for. Pt and family had been referred to [facility] as clerical grader have been to pt's house many times for herself and spouse. Home in disrepair (rotten food out with bugs and lots of alcohol bottles) and APS report was made again in July 2024 this year. Pt denies her own ETOH use or abuse of prescriptions medications and UDS+ benzos but no ETOH. Pt denies any intentional over use of Benzos and denies any S.I. Pt was prescribed Clonazepam since 2004 and most recent Psychiatrist Dr. Gomez attempted to discontinue this medication. Pt no longer established with Psychiatrist and her PCP prescribes her anxiety medication. Pt typically ambulates with a FWW or a w/c for longer distances. Pt has a hx of gastric sleeve and confirms her chronic weakness over the past few months. Pt has not been driving and relies on her spouse, although admits he is typically an all day long drinker, and believes that she has Medicaid transportation benefits if needed. SW discussed the concerns of her frequent admits and recommendation of increasing her strength to improve her mobility and independence. Pt confirms that she is motivated to get stronger and more independent and wants her spouse to go to treatment for sobriety from alcohol. SW discussed potential options for strengthening and pt adamant about declining SNF since her mom has been to multiple local facilities, is aware that HH likely will decline due to the state of their home and ETOH use with spouse, but states she is interested in outpt PT. Discussed that if pt no-shows for PT appointments and Medicaid transport that these options likely will be unavailable to her. Pt acknowledges understanding. If pt got to the point of voluntarily accepting Inpt Tx for MH or TOBIAS, she would need to be more independent with her ADLs than her current baseline. PT orders placed and pending. SW informed pt of her OBS status and chronic weakness not being a reason for [place] insurance to cover her hospital stay past tomorrow and pt aware that she will likely have discharge orders by tomorrow. Pt confirms her preference is home and would be interested in outpt PT and transport by Medicaid home and to appointments. Plan; SW to follow closely for PT eval and confirming tomorrow Mon if pt has Medicaid transportation benefits to get home and to outpt PT appointments. ROMARIO Steele Discharge Planning/Care Management CM Discharge Assessment Start: 09/13/24 10:15 Freq: Status: Active Protocol: Document 09/13/24 10:15 BF (Rec: 09/13/24 10:19 BF [id number]) Discharge Planning Assessment Assigned Consultant Dietitian ROMARIO Abel DPOA/Assigned Designee Name none, informally spouse Vick [place] Advance Directives? No Advance Directives on File No History Provided By Patient,Significant Other, Medical Record Has Patient been admitted in last 30 Yes days? Comment Just discharged home 08/24/24 Prior Living Arrangements House Household Members spouse,family Comment Lives at home with spouse and CG to mother Type of transporation used prior to Medicaid Transport admit Comment Relies on others but does think she has Medicaid transport Independent with ADL's No: weak, needs assist with ambulation Is patient alert and oriented? 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 Benzo use Needs Assistance With Meal Prep,Managing Medications ,Home Chores / Shopping Caregiver for Another Yes: elderly mother at home DME Already Rented / Owned Wheelchair,FWW / Walker Patient/Family Preference OP PT Therapy Comment HH likely not an option due to the messiness of the home, spouse with ETOH, and unsafe Comment Pt in denial about ETOH abuse and benzos and has been given resources Discharge Plan Home Community Services Physical Therapy Transportation Arrangement Might need Medicaid taxi as spouse with long hx of ETOH use Additional Comment Previously given ETOH/Rx abuse resources, currently denying any need Whiteboard Updated in Patient Room with Yes name and ext. # of Consultant Dietitian Review Status In Process Please Provide Date Initial DC 09/13/24 Assessment Was Performed Next Review Type Continued Stay Review
--- NOTE | 2024-09-13 11:22 | PT-IP ANOTE ---
PT checks back with pt to initiate evaluation and she declines today. Will con't PT efforts next date. Pt with several complaints about lying on her butt, neuropathy in hands.
[2024-09-13] MEDS: ACETAMINOPHEN 325 MG TABLET 650 MG PO ×2 (16:50→22:24)
[2024-09-13] MEDS: POTASSIUM CHLORIDE 20 MEQ TAB 40 MEQ PO (16:50)
[2024-09-14] VITALS (7 sets, daily range): BP systolic 119–144; BP diastolic 82–102; PULSE 105–111; RESP 18–20; TEMP 36.1–36.3; O2SAT 97–100
--- NOTE | 2024-09-14 06:31 | PC.NURSE ---
pt refusing to turn and change brief at times, RN educated pt on importance of q2h turns and clean briefs for optimal skin integrity, pt refusing potassium and protonix at HS stating she doesn't need any of those meds, bed alarm on, call zapata within reach, turned when cooperative with care, purewick in place for small amt of urine, care continued
[2024-09-14] MEDS: LEVOTHYROXINE 75 MCG TABLET PO (08:03)
[2024-09-14] MEDS: ESCITALOPRAM 10 MG TABLET 20 MG PO (09:04)
[2024-09-14] MEDS: PANTOPRAZOLE DR 40 MG TABLET PO ×2 (09:04→21:33)
[2024-09-14] MEDS: hydroCHLOROthiazide 25 MG TABLET PO (09:04)
[2024-09-14 09:28] LABS: Add Manual Diff / Slide Review NO; Basophils Absolute Auto 0 /uL (0-100); Basophils Percent Auto 0.5 % (0-2); Eosinophils Absolute Auto 100 /uL (0-450); Eosinophils Percent Auto 0.7 % (2-4); Hematocrit 29.9 % (36-46); Hemoglobin 9.9 g/dL (12.0-16.0); Lymphocytes Absolute Auto 1900 /uL (1100-4500); Lymphocytes Percent Auto 21.5 % (25-40); Mean Corpuscular HGB Conc 33.1 % (30-36); Mean Corpuscular Hemoglobin 26.7 PG (26-34); Mean Corpuscular Volume 80.5 fL (80-100); Monocytes Absolute Auto 600 /uL (0-900); Monocytes Percent Auto 6.3 % (3-14); Neutrophils Absolute Auto 6300 /uL (1500-7000); Platelet Count 215 X10^3/uL (150-400); Red Blood Cell Count 3.71 X10^6/uL (4.0-5.2); White Blood Cell Count 8.9 X10^3/uL (4.5-11.0)
[2024-09-14 09:38] LABS: BUN Creatinine Ratio 20.7 (6-22); Blood Urea Nitrogen 12 mg/dL (7-17); Calcium 8.3 mg/dL (8.4-10.2); Carbon Dioxide 20 mmol/L (22-32); Chloride 109 mmol/L (98-107); Estimated Glomerular Filt Rate > 60 mL/min (>60); Glucose 81 mg/dL (70-100); HEMOLYSIS < 15 (0-50); Sodium 133 mmol/L (137-145)
[2024-09-14 09:39] LABS: Anisocytosis 2+; Potassium 2.6 mmol/L (3.4-5.1)
[2024-09-14 09:40] LABS: Ovalocytes 1+
[2024-09-14 09:41] LABS: Tear Drop Cells 1+
[2024-09-14 09:50] LABS: Troponin I 0.059 ng/mL (0.01-0.034)
--- NOTE | 2024-09-14 10:06 | DI.ECHO.S_ITS ---
[facility] : : [address] : : [place] : : [id number] : : Phone: [phone] Echocardiogram Report + + :Name: THOMAS AYALA Study Date: 09/14/2024 Height: 59 in : :Hospital ReadingLocation: Weight: 99 lb : : Gender: Female BSA: 1.4 m2 : :: 1970 Age: 54 yrs BP: 133/91 mmHg: :Reason For Study: TASNEEM PAIN, BORDERLINE INCREASED TROPONINS : :Ordering Physician: PEDRO, : :KENNETH PRADO Performed By: Goldie Cuenca : :Referring: KENNETH VASQUEZ : + + Interpretation Summary 1. The left ventricular contractility is hyperdynamic. Estimate ejection fraction is greater than 70% with near obliteration of the left ventricular cavity at end systole. Mild asymmetrical septal hypertrophy. There is increased velocities across the left ventricular outflow tract with Valsalva but this is most likely due to an underfilled state of the left ventricle and its hyperdynamic contractility. Unable to comment on diastolic function. 2. The right ventricle contractility is hyperdynamic. 3. The left ventricle is small. All other cardiac chambers appear to be of normal size. 4. No significant valvular abnormalities noted. 5. No obvious intracardiac shunts. 6. No obvious intracardiac masses nor thrombi. 7. Trace, non-hemodynamically significant pericardial effusion. 8. Low right-sided filling pressures. Conclusion: Hyperdynamic biventricular systolic function with small left ventricular cavity suggestive of an underfilled state. No significant valvular abnormalities noted. When compared with previous echocardiogram, there is a significant increase in the left ventricular ejection fraction. Procedure: A two-dimensional transthoracic echocardiogram with color flow and Doppler was performed. The study quality was technically adequate. Comparison is made with the echocardiogram of 08/01/2021. The patient was in sinus tachycardia with heart rates between 103-113 bpm during the exam. Left Ventricle: The left ventricular cavity is small. Proximal septal thickening is noted. Left ventricular ejection fraction is estimated to be >70%. The left ventricle is hyperdynamic. Diastolic function could not be accurately assessed due to tachycardia. Right Ventricle: The right ventricle is normal in size and function. Atria: The left atrial size is normal. Right atrial size is normal. There is no Doppler evidence for an interatrial shunt. Mitral Valve: The mitral valve leaflets appear to open well. There is no mitral regurgitation noted. Aortic Valve: The aortic valve is trileaflet. The aortic valve opens well. There is no aortic valve stenosis. No aortic regurgitation is present. Tricuspid Valve: The tricuspid valve leaflets are thin and pliable. There is trace tricuspid regurgitation. Pulmonary artery pressures cannot be estimated because of the lack of a measurable TR jet velocity. Pulmonic Valve: The pulmonic valve is not well seen, but is grossly normal. There is no pulmonic valvular regurgitation. Great Vessels: The aortic root is normal size. The dimensions of the ascending aorta are normal. The IVC is of normal diameter and collapses greater than 50% with a sniff. This suggests a low right atrial pressure of 3 mm Hg. Pericardium/ Pleura There is a trivial pericardial effusion noted. There is no pleural effusion. MMode/2D Measurements & Calculations LVIDd: 3.3 cm LVOT diam: 2.0 cm LVIDs: 2.0 cm Ao root diam: 3.3 cm FS: 40.6 % asc Aorta Diam: 3.4 cm IVSd: 1.1 cm LVPWd: 0.83 cm LV velazquez. diameter/BSA (cm/m^2): 2.4 LV sys. diameter/BSA (cm/m^2): 1.4 LA A2 area: 12.9 cm2 RA long axis: 3.8 cm LA A4 area: 7.7 cm2 RA area: 8.6 cm2 LA length (vol): 3.6 cm RA vol: 16.7 ml LA vol: 23.3 ml RA : 12.2 ml/m2 LA vol index: 17.0 ml/m2 IVC diam: 1.3 cm RVD1 (basal): 2.6 cm RVD2 (mid): 2.1 cm VIC (plan): 1.7 cm2 TAPSE: 1.6 cm Doppler Measurements & Calculations Ao V2 max: 131.1 cm/sec LVOT Max Scott: 143.2 cm/sec Ao V2 mean: 83.0 cm/sec LV V1 max P.2 mmHg Ao max P.9 mmHg LV V1 VTI: 21.0 cm Ao mean P.2 mmHg VIC(I,D): 3.7 cm2 Ao V2 VTI: 17.3 cm VIC(V,D): 3.3 cm2 sev ratio: 1.2 VIC indexed to BSA (cm^2/m^2): 2.7 Med Peak E' Scott: 7.7 cm/sec PA V2 max: 109.6 cm/sec Lat Peak E' Scott: 9.3 cm/sec PA V2 mean: 77.3 cm/sec PA mean P.7 mmHg PA pr(Accel): 53.3 mmHg SV(LVOT): 64.3 ml Reading Physician:GILSON
[2024-09-14] MEDS: ACETAMINOPHEN 325 MG TABLET 650 MG PO (10:30)
--- NOTE | 2024-09-14 10:43 | PT.IIE ---
Surgical History (Last Reviewed 09/12/24 @ 12:28 by Tom Moreno MD) History of removal of laparoscopic gastric banding device (2014) Hx of laparoscopic gastric banding (2011) Hx of sinus surgery (2011) 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) Medical History (Last Reviewed 09/12/24 @ 12:28 by Tom Moreno MD) Allergy (Unknown) Amenorrhea Anxiety (1989) Chronic back pain (Unknown) Chronic venous insufficiency Foot pain (2003) GERD (gastroesophageal reflux disease) (Unknown) Heavy menses (Unknown) IBS (irritable bowel syndrome) (1985) Neuropathy Obstructive sleep apnea (Unknown) Painful menstrual periods (Unknown) Restless leg syndrome (2014) Shoulder pain (Unknown) Vertigo (1979) Physical Therapy Inpatient Evaluation/Re-Eval M1 PT/OT-IP Prior Functional Status Start: 09/13/24 07:57 Freq: NEEDED Status: Active Protocol: Document 09/14/24 09:11 MB (Rec: 09/14/24 10:42 MB Desktop) Medical Review Prior Functional Status Medical History Reviewed Yes Communication Unsure baseline diet and intake, pt communicates well Mobility and Gait Pt reports she ambulates with RW at home Activities of Daily Living and IADL's Pt reports she is I with ADLs, lives with spouse and her mother Social History Household Members spouse,family Living Arrangements House Number of Floors (Floors) One Floor Number of Stairs To Enter/Railing? Several platform-type steps to enter and does not report rails when asked Home Environment Standard Height Toilet,Tub/ Shower Home Equipment Front Wheel Walker,Quad Cane, Manual Wheelchair,Shower Seat with Backrest,Hand Held Shower Additional Social History Comment Pt reports she is not working M2 PT-IP Current Condition Start: 09/13/24 07:57 Freq: NEEDED Status: Active Protocol: Document 09/14/24 09:11 MB (Rec: 09/14/24 10:42 MB Desktop) Physical Therapy Current Condition Current Condition Evaluation Date 09/14/24 Treatment Diagnosis Fall to floor and unable to get up M3 PT-IP Subjective Start: 09/13/24 07:57 Freq: NEEDED Status: Active Protocol: Document 09/14/24 09:11 MB (Rec: 09/14/24 10:42 MB Desktop) Subjective Physical Therapy Visit Type Type Initial Evaluation Visit Start Time 09:11 Visit Stop Time 09:40 Number of SAND SLINGER Visits 0 Physical Therapy Visit Comments Patient Comments Pt is agreeable to try PT. Therapy Pain Assessment Pain When Pain Assessed At Rest Pain Present Pain Present Denied Pain M4 PT-IP Mobility and Gait Start: 09/13/24 07:57 Freq: NEEDED Status: Active Protocol: Document 09/14/24 09:11 MB (Rec: 09/14/24 10:42 MB Desktop) PT-Bed Mobility Assessment Rolling Type of Rolling Roll to Right Level of Assist Minimal Assistance,1 Person Assistance Scooting Scooting to Edge of Bed Maximum Assistance Scooting Up and Down in Bed Maximum Assistance PT-Transfer Assessment Comments Mobility Comments HOB elevated and pt uses rail and requires increased time and encouragement to move to the side of the bed and then PT assists her. Max A to scoot hips to the side of the bed and pt c/o pinching with pure wick and nsg assists and pt with BM. Returned to side lying and supine for nsg to assist with bowel incontinence . Pt is able to bend knees and scoot up to HOB minimally and requires nsg and PT assist via pad. HR is 107-117 BPM throughout treatment. PT-Balance Assessment Sitting Balance and Reactions Static Sitting Balance Ability Fair Dynamic Sitting Balance Ability Poor M5 PT-IP Objective Assessments Start: 09/13/24 07:57 Freq: NEEDED Status: Active Protocol: Document 09/14/24 09:11 MB (Rec: 09/14/24 10:42 MB Desktop) Orientation Orientation/Cognition Level of Alertness Alert Orientation Name,Birthday,Month,Date,Place Safety Awareness Decreased Safety Awareness Memory Description Short Term Impaired,Publishing Agent Impaired Comments Decreased communication about baseline function Gross Range of Motion Upper Extremity ROM Assessment Bilaterally Impaired Impairments Functionally observed today and pt with globalized muscle wasting Lower Extremity ROM Assessment Bilaterally Impaired Impairments As above Strength Upper Extremity Strength Assessment Bilaterally Impaired Lower Extremity Strength Assessment Bilaterally Impaired Comments Strength Comments Pt does not tolerate formal ROM and MMT today and presents with B foot and ankle edema, muscle wasting in legs and cannot fully extend either knee once sitting EOB Coordination Assessment Gross Coordination Gross Coordination Impaired Assessment Coordination Comments Pt reports neuropathy in both hands and fine motor trouble and she has decreased ability to use hands for eating as observed by PT last date when PT checks into room Sensation Assessment Comments Sensation Comments B hand numbness/neuropathy M6 PT-IP Treatment Start: 09/13/24 07:57 Freq: NEEDED Status: Active Protocol: Document 09/14/24 09:11 MB (Rec: 09/14/24 10:42 MB Desktop) Physical Therapy Treatment Exercises Exercises Ankle Pumps,Heel Slides Education Education Provided Safety M7 PT-IP Assessment and Plan Start: 09/13/24 07:57 Freq: NEEDED Status: Active Protocol: Document 09/14/24 09:11 MB (Rec: 09/14/24 10:42 MB Desktop) PT Summary Assessment and Plan Potential Rehabilitation Potential Poor Status of Condition at Evaluation Unstable Summary Impairments Pain,ROM,Strength,Balance, Coordination,Sensation, Cognition,Bed Mobility, Transfers,Gait,Activity Tolerance Progress Towards Goals Slow Progress due to Activity Tolerance,Slow Progress - Other Assessment Summary Pt is a 54 y/o female presenting to hospital after fall and unable to get up, possible overuse of benzos. Pt is distractible and slow to move and requires encouragement to get to the EOB. Once there, pure wick is uncomfortable and PT did not remove d/t concerns for incontinence and inability to get up to BSC and nsg arrives to assist and pt with bowel incontinence. Returned to side lying and supine and nsg to assist with hygiene. Pt presents with globalized weakness and currently recommend OOB to chair with total lift. Goals Bed Mobility Goal Independent Transfer Goal Standby Assistance,Front Wheeled Walker Gait Goal Standby Assistance,Front Wheel Walker Gait Distance 25 Other Goals Pt will ascend and descend 2 platform steps with LRAD and no more than CGA to allow safe home entrance. Days to Meet Goals 10 Frequency of Treatment Frequency Of Treatment Once a Day Treatment Plan Physical Therapy Treatment Plan Bed Mobility Training,Transfer Training,Gait Training, Therapeutic Exercise,Balance Retraining,Discharge Planning, Hot or Cold Pack,Neuromuscular Re-ed,Coordination Retraining ,Manual Therapy Precautions Other Precautions High fall risk Recommendations To Nursing Amount of Assist Needed Mechanical Lift Discharge Recommendations PT Discharge Recommendations Home with / Assist Available,Home Health,Home vs SNF Transportation Needs at Discharge Stretcher/Ambulance - PT assist x2
[2024-09-14] MEDS: POTASSIUM CHLORIDE 20 MEQ/15 ML UDC 40 MEQ PO ×2 (11:22→17:01)
--- NOTE | 2024-09-14 14:37 | P.PN_ITS ---
Subjective Subjective Interval history: 54 F admitted with weakness, dehydration. She has near constant band like chest pain, no change today. Troponin initially downtrended but a 3rd was checked and increased yesterday. Her potassium continues to decline, intermittently refused potassium tab overnight but did get some oral repletion yesterday and still declined. TTE today showed hyperdynamic function consistent with volume contraction. Exam Vital Signs (past 8 hours): - 09/14/24 07:00 09/14/24 08:00 09/14/24 12:00 Pulse Rate 111 H 111 H Respiratory Rate 18 18 Blood Pressure 129/89 133/91 H Pulse Oximetry 99 100 Oxygen Delivery Method Room Air Oxygen Delivery Method Room Air Oxygen Flow Rate 0 Narrative Exam Narrative: GENERAL: This is a thin, frail-appearing female, alert, appears calm, responds appropriately to questions. EYES: Pupils 3 mm equal round and reactive. Extraocular motions intact. No scleral icterus. No injection or drainage. ENT: Mucous membranes pink and moist. NECK: Trachea midline. No JVD, bruits or lymphadenopathy. Supple, nontender, no meningeal signs. CARDIOVASCULAR: Regular rate and rhythm without murmurs, gallops, or rubs. RESPIRATORY: Clear to auscultation. GASTROINTESTINAL: Abdomen soft, non-tender, nondistended. EXTREMITIES: No clubbing, cyanosis, or edema. NEUROLOGIC: Alert, oriented, speech fluent, full upper and lower motor strength, no focal deficits evident. DERMATOLOGIC: No rashes or skin lesions. Objective ECG Impression: Sinus tachycardia, no acute ischemia, prolonged QT Labs 09/14/24 09:01 09/14/24 09:01 Labs: Laboratory Results - last 24 hr 09/14/24 09:01 WBC 8.9 RBC 3.71 L Hgb 9.9 L Hct 29.9 L MCV 80.5 MCH 26.7 MCHC 33.1 RDW 22.0 H Plt Count 215 Neut % (Auto) 71.0 Lymph % (Auto) 21.5 L [place] % (Auto) 6.3 Eos % (Auto) 0.7 L Baso % (Auto) 0.5 Neut # (Auto) 6300 Lymph # (Auto) 1900 [place] # (Auto) 600 Eos # (Auto) 100 Baso # (Auto) 0 RBC Morphology See below Anisocytosis 2+ H Tear Drop Cells 1+ H Ovalocytes 1+ H Sodium 133 L Potassium 2.6 L* Chloride 109 H Carbon Dioxide 20 L BUN 12 Creatinine 0.58 Estimated GFR > 60 BUN/Creatinine Ratio 20.7 Glucose 81 Calcium 8.3 L Troponin I 0.059 H PFSH Medical History Allergy (Unknown) Amenorrhea Anxiety (1989) Chronic back pain (Unknown) Chronic venous insufficiency Foot pain (2003) GERD (gastroesophageal reflux disease) (Unknown) Heavy menses (Unknown) IBS (irritable bowel syndrome) (1985) Neuropathy Obstructive sleep apnea (Unknown) Painful menstrual periods (Unknown) Restless leg syndrome (2014) Shoulder pain (Unknown) Vertigo (1979) Surgical History History of removal of laparoscopic gastric banding device (2014) Hx of laparoscopic gastric banding (2011) Hx of sinus surgery (2011) 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) Family History Grandmother Cancer Mental health problem Mother Age: 76 Mental health disorder Sister Age: 58 Heart disease Hypertension High cholesterol Mental health problem Asthma COPD (chronic obstructive pulmonary disease) Social History household members: spouse and family Tobacco: How many years used: 10 second hand exposure: No alcohol intake: current substance use type: does not use Assessment & Plan Assessment & Plan narrative: 1. Altered mental status, suspected benzodiazepine overdose. Possibly potentiated by concomitant reported alcohol use, with negative alcohol level on admission. Clinically resolved, alert, appropriate today. 2. Dehydration, hypokalemia 3. Alcohol and substance abuse disorder. Monitor for substance abuse withdrawal syndrome. 4. Myocardial injury, present on admission 5. Chronic anxiety with panic attacks. Continue routine therapy. 6. History of urinary retention. Discontinue i urinary catheter and monitor. Plan: - patient improved cognition, remains weak and will continue therapies - TTE today for elevated troponins reassuring but does show signs of persistent hypovolemia - will stop HCTZ, give 1L NS today to see if improvement in tachycardia. - Continue to trend troponin again until downtrending. Chest pain chronic today, okay to resume home baclofen and clonazepam prn with precaution for encephalopathy. - with worsening hypokalemia, change to inpatient status. Will also add Mg level with repeat troponin. Code: Full Dispo: changed to inpatient, anticipate discharge in 1-2 more days with resolution of electrolytes and improvement in vitals. Time-Based Coding :: [TOTAL MINUTES] spent with patient and on the chart (including review of chart, obtaining history, exam, reviewing outside data, placing orders, documenting exam and treatment plan, and counseling patient) on [DATE].
[2024-09-14] MEDS: SODIUM CHLORIDE 0.9% 1,000 ML 125 ML IV (14:49)
[2024-09-14] MEDS: BACLOFEN 10 MG TABLET 20 MG PO ×2 (15:00→21:33)
[2024-09-14] MEDS: clonazePAM 0.5 MG TABLET PO ×2 (15:00→21:33)
[2024-09-14 15:35] LABS: Magnesium 1.7 mg/dL (1.6-2.3)
[2024-09-14 15:48] LABS: Troponin I 0.056 ng/mL (0.01-0.034)
--- NOTE | 2024-09-14 15:53 | CM.DPNOTE ---
DCP Note TELECOMMUNICATION ENGINEER reviewed EMR per provider, tropes rising throughout admission. echo pending, electrolyte abnormalities as well. (potassium). switch to INPT and anticipate dc in next day or so. TELECOMMUNICATION ENGINEER updated Comm Box Sealing Inspector Emerson Torres, appreciative of updates. Per APS intake, multiple new referrals made but no acid bleacher assigned at this time. Per Angela at [facility] , confirmed not able to accept pt's ins at this time ([facility] also not accepting [place] Medicaid at this time) Per intake at [facility] Medicaid transport, pt does qualify for transport benefits. TELECOMMUNICATION ENGINEER met with pt in room and introduced self and role. minimally participatory with this DCP due to pain in abdomen, groaning in pain. TELECOMMUNICATION ENGINEER reviewed PT rec, pt confirms refusal to dc to SNF and preference for home, cites how her mom was treated at SNFs for reasoning for refusal for SNF placement. TELECOMMUNICATION ENGINEER gave pt [facility] Medicaid transport information, Comm action information, and [facility] crisis information. Pt reported she will plan to reach out to [facility] for arranging transport help with PCP/OP PT. Pt interested in comm action/[facility], TELECOMMUNICATION ENGINEER answered questions to best of ability. pt groaning in pain, asked to continue speaking with this TELECOMMUNICATION ENGINEER tomorrow. TELECOMMUNICATION ENGINEER updated RN, RN to go to bedside for further care. P: anticipate dc to home with OP f/u recommended. transport with Medicaid transport vs spouse in POV? will continue to follow closely for DCP coordination ROMARIO Malone
[2024-09-14] MEDS: DICYCLOMINE 10 MG CAPSULE PO (16:16)
[2024-09-15] VITALS: BP 133/101; PULSE 108; RESP 16; TEMP 36.3; O2SAT 97
[2024-09-15 04:00] VITALS: BP 130/92; PULSE 101; RESP 16; TEMP 36.3; O2SAT 98
[2024-09-15] MEDS: LEVOTHYROXINE 75 MCG TABLET PO (05:39)
[2024-09-15] MEDS: BACLOFEN 10 MG TABLET 20 MG PO (05:42)
[2024-09-15 05:49] LABS: Add Manual Diff / Slide Review NO; Basophils Absolute Auto 0 /uL (0-100); Basophils Percent Auto 0.7 % (0-2); Eosinophils Absolute Auto 100 /uL (0-450); Eosinophils Percent Auto 1.3 % (2-4); Hematocrit 27.8 % (36-46); Hemoglobin 9.1 g/dL (12.0-16.0); Lymphocytes Absolute Auto 2600 /uL (1100-4500); Lymphocytes Percent Auto 41.5 % (25-40); Mean Corpuscular HGB Conc 32.8 % (30-36); Mean Corpuscular Hemoglobin 26.6 PG (26-34); Monocytes Absolute Auto 400 /uL (0-900); Monocytes Percent Auto 6.7 % (3-14); Neutrophils Absolute Auto 3100 /uL (1500-7000); Neutrophils Percent Auto 49.8 % (50-75); Platelet Count 236 X10^3/uL (150-400); Red Blood Cell Count 3.43 X10^6/uL (4.0-5.2); Red Cell Distribution Width 22.1 % (11.6-14.8); White Blood Cell Count 6.3 X10^3/uL (4.5-11.0)
[2024-09-15 06:07] LABS: Anisocytosis 2+; Microcytosis 1+; Platelet Estimate Adequate on smear
[2024-09-15 06:08] LABS: Ovalocytes 1+; Tear Drop Cells 1+
[2024-09-15 06:10] LABS: BUN Creatinine Ratio 22.4 (6-22); Blood Urea Nitrogen 11 mg/dL (7-17); Carbon Dioxide 20 mmol/L (22-32); Chloride 112 mmol/L (98-107); Estimated Glomerular Filt Rate > 60 mL/min (>60); Glucose 80 mg/dL (70-100); HEMOLYSIS < 15 (0-50); Magnesium 1.7 mg/dL (1.6-2.3); Potassium 3.3 mmol/L (3.4-5.1); Sodium 134 mmol/L (137-145)
[2024-09-15 08:00] VITALS: BP 133/95; PULSE 106; RESP 16; TEMP 36.3; O2SAT 99
[2024-09-15] MEDS: ESCITALOPRAM 10 MG TABLET 20 MG PO (08:25)
[2024-09-15] MEDS: POTASSIUM CHLORIDE 20 MEQ TAB 40 MEQ PO (08:25)
[2024-09-15] MEDS: PANTOPRAZOLE DR 40 MG TABLET PO (08:25)
[2024-09-15] MEDS: MAGNESIUM CHLORIDE 64 MG TABLET 128 MG PO (08:57)
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
--- NOTE | 2024-09-15 11:42 | PC.NURSE ---
Addendum entered by Brigid Burger R.N. 09/15/24 13:08: Pt exited via w/c with SCREEDMAN/LABORER and 2 RNs to private vehicle, where pt's picked her up. Original Note: Day shift: pt assisted to [facility], max 2 person assist, and was incontinent of BM and urine. Pt then assisted with a shower. IVs removed. Pt currently sitting in chair, call light within reach.
--- NOTE | 2024-09-15 12:27 | CM.DPNOTE ---
Addendum entered by ROMARIO Malone 09/15/24 13:03: per RN, pt spouse arrived to take pt home. COMPUTER EQUIPMENT INSTALLER canceled transport request with [facility]. Per Elisa from [facility] , cannot accept the referral at this time. appreciate their willingness to review. SL Original Note: DCP note COMPUTER EQUIPMENT INSTALLER reviewed EMR per provider, cardio worked up cleared. pt cleared for home. COMPUTER EQUIPMENT INSTALLER met with pt in room. eager to dc home. denies SNF/any additional Drug/ETOH resources. has Medicaid transport/comm action/MDOT resources. plans to follow up with PCP. remains hopeful for HH if possible. will need transport home. denies other CM/DCP needs at this time. COMPUTER EQUIPMENT INSTALLER faxed in Medicaid transport form to [facility], time pending. COMPUTER EQUIPMENT INSTALLER [facility]. COMPUTER EQUIPMENT INSTALLER emailed initial referral information. acceptance pending. per APS intake, three recent referrals had been made, all screened out. no current investigator operator. COMPUTER EQUIPMENT INSTALLER updated [facility] operations coordinator. P: dc home today with OP f/u, maybe [facility] pending acceptance. will continue to follow closely for DCP coordination ROMARIO Malone
== END 2024-09-15 13:10 | disposition home or self-care (01) | DRG 812 ==
LOC: ED 10:35 → AC 10:37 → ICU 11:03 → AC 09-15 07:52
PROVIDERS: Emergency Medicine; Internal Medicine; Admitting Provider Internal Medicine; Emergency Provider Emergency Medicine; Family Provider Family Medicine; PCP Family Medicine; Referring Provider Emergency Medicine; Visit Provider Internal Medicine
DX: T42.4X1A Poisoning by benzodiazepines, accidental (unintentional), initial encounter (principal); G92.9 Unspecified toxic encephalopathy; I5A Non-ischemic myocardial injury (non-traumatic); E86.0 Dehydration; F10.10 Alcohol abuse, uncomplicated; R33.9 Retention of urine, unspecified; F41.0 Panic disorder [episodic paroxysmal anxiety]; E87.6 Hypokalemia; K21.9 Gastro-esophageal reflux disease without esophagitis; T68.XXXA Hypothermia, initial encounter; F17.210 Nicotine dependence, cigarettes, uncomplicated; W18.30XA Fall on same level, unspecified, initial encounter; Y90.0 Blood alcohol level of less than 20 mg/100 ml; Z79.890 Hormone replacement therapy; Z91.81 History of falling; Z58.89 Other problems related to physical environment
CPT/HCPCS: 36415; 70450; 70496; 70498; 71045; 80048; 80053; 80305; 80320; 81001; 82140; 82962; 83605; 83735; 83880; 84145; 84443; 84484; 85025; 86850; 86900; 86901; 87507; 87797; 93005; 93306; 96360; 97162; 97530; 99284; 99285; G0378; J1630; J2270; Q9967

== ENCOUNTER 2024-10-12 05:09 | Inpatient (IN) | payer OTHER, SELFPAY ==
[2024-09-12 10:46] VITALS: BMI 19.6
[2024-10-12] VITALS (23 sets, daily range): BP systolic 94–123; BP diastolic 62–80; PULSE 83–105; RESP 15–20; TEMP 36.4–36.7; O2SAT 86–100; BMI 17.9
--- NOTE | 2024-10-12 | DI.RAD.S_ITS ---
PROCEDURE: XR CHEST 1V INDICATIONS: cough TECHNIQUE: One view of the chest was acquired. COMPARISON: [facility], CR, XR CHEST 1V, 09/12/2024, 6:32. [facility], CR, XR CHEST 1V, 08/19/2024, 15:53. FINDINGS: Surgical changes and devices: None. Lungs and pleura: Lungs are clear. No pleural effusions or pneumothorax. Mediastinum: Mediastinal contours appear normal. Heart size is normal. Bones and chest wall: No suspicious bony lesions. Overlying soft tissues appear unremarkable. IMPRESSION: No acute cardiopulmonary abnormality is seen. Dictated by: Douglas Samuels M.D. on 10/12/2024 at 16:52 Approved by: Douglas Samuels M.D. on 10/12/2024 at 16:53
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
--- NOTE | 2024-10-12 06:10 | PC.NURSE ---
pure wick placed on pt, pt states she uses a pure wick at home also
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
--- NOTE | 2024-10-12 06:36 | EKG_ITS ---
[address] [address] Test Date: 2024-10-12 Pat Name: Rebekah Washington Department: [facility] Room: Gender: Female Crystal Report Developer: JACKY : 1970 Requested By: Order Number: [id number] Reading MD: Pino Santiago Measurements Intervals [place] Rate: 94 P: 54 [place]: 162 QRS: 39 QRSD: 64 T: 103 QT: 358 QTc: 447 Interpretive Statements Normal sinus rhythm Nonspecific T wave abnormality Electronically Signed On 10-14-2024 16:18:30 PDT by Pino Santiago
--- NOTE | 2024-10-12 06:49 | PC.NURSE ---
pt's sclera noted pale, pt's skin pale pt states last time she was here she received a transfusion
[2024-10-12 06:55] LABS: Add Manual Diff / Slide Review NO; Basophils Absolute Auto 0 /uL (0-100); Basophils Percent Auto 0.4 % (0-2); Eosinophils Absolute Auto 100 /uL (0-450); Eosinophils Percent Auto 0.7 % (2-4); Hemoglobin 11.8 g/dL (12.0-16.0); Lymphocytes Absolute Auto 2200 /uL (1100-4500); Lymphocytes Percent Auto 19.9 % (25-40); Mean Corpuscular HGB Conc 32.8 % (30-36); Mean Corpuscular Hemoglobin 28.1 PG (26-34); Mean Corpuscular Volume 85.9 fL (80-100); Monocytes Absolute Auto 700 /uL (0-900); Monocytes Percent Auto 5.9 % (3-14); Neutrophils Absolute Auto 8200 /uL (1500-7000); Neutrophils Percent Auto 73.1 % (50-75); Platelet Count 277 X10^3/uL (150-400); Red Cell Distribution Width 16.4 % (11.6-14.8); White Blood Cell Count 11.2 X10^3/uL (4.5-11.0)
[2024-10-12 07:05] LABS: Creatine Kinase 272 U/L (30-135); Lactate (Lactic Acid) 1.2 mmol/L (0.7-2.1)
[2024-10-12 07:06] LABS: Alanine Aminotransferase 25 IU/L (<35); Albumin 2.9 g/dL (3.5-5.0); Albumin Globulin Ratio 0.9 (1.0-2.8); Alkaline Phosphatase 174 U/L (38-126); Aspartate Aminotransferase 59 IU/L (14-36); BUN Creatinine Ratio 33.9 (6-22); Bilirubin Total 0.9 mg/dL (0.2-1.3); Blood Urea Nitrogen 21 mg/dL (7-17); Calcium 8.9 mg/dL (8.4-10.2); Carbon Dioxide 20 mmol/L (22-32); Chloride 105 mmol/L (98-107); Estimated Glomerular Filt Rate > 60 mL/min (>60); Ethanol (ETOH) < 10 mg/dL; Globulin 3.2 g/dL (1.7-4.1); Glucose 69 mg/dL (70-99); HEMOLYSIS < 15 (0-50); Sodium 133 mmol/L (137-145); Total Protein 6.1 g/dL (6.3-8.2)
[2024-10-12 07:18] LABS: Troponin I 0.035 ng/mL (0.01-0.034)
[2024-10-12 07:30] LABS: Magnesium 2.2 mg/dL (1.6-2.3)
[2024-10-12 08:01] LABS: Thyroid Stimulating Hormone 7.19 uIU/mL (0.47-4.68)
--- NOTE | 2024-10-12 08:31 | PC.NURSE ---
TIME STUDY ENGINEER Note: Left message for patient's , Lam, requesting that he come to the emergency department to see her. Left message at [phone] per patient request.
[2024-10-12 08:48] LABS: T4 Total Thyroxine 6.55 ug/dL (5.5-11.0)
--- NOTE | 2024-10-12 09:06 | DI.MRI.S_ITS ---
PROCEDURE: MR CERVICAL SPINE WO/W CON INDICATIONS: gen weakness and ataxia TECHNIQUE: Noncontrast sagittal T1 spin echo and T2 fast spin echo, sagittal STIR, foraminal oblique sagittal T2 fast spin echo, axial gradient echo or T2 fast spin echo through the cervical spine. After the administration of contrast, axial and sagittal T1 spin echo with fat saturation through the cervical spine. COMPARISON: None. FINDINGS: Image quality: Excellent. Alignment and curvature: There is normal bony alignment. Marrow: Marrow is normal in overall signal, without suspicious enhancement. Spinal cord: Visualized spinal cord has normal size and signal. No cerebellar tonsillar herniation. No abnormal intramedullary enhancement. Paraspinous soft tissues: No paravertebral masses or suspicious enhancement. C2-3: No canal stenosis or foraminal stenosis. C3-4: No canal stenosis or foraminal stenosis. C4-5: No canal stenosis or foraminal stenosis. C5-6: Mild disc bulge. No canal stenosis or foraminal stenosis. C6-7: Mild disc bulge. No canal stenosis or foraminal stenosis. C7-T1: Normal appearance. IMPRESSION: 1. No canal stenosis or foraminal stenosis. 2. Normal cervical cord caliber, contour, and signal characteristics. 3. No abnormal enhancement with gadolinium. Dictated by: Thomas Escobar M.D. on 10/12/2024 at 11:15 Approved by: Thomas Escobar M.D. on 10/12/2024 at 11:18
[2024-10-12 09:12] LABS: Troponin I 0.029 ng/mL (0.01-0.034)
--- NOTE | 2024-10-12 09:37 | PC.NURSE ---
FINGER LIFT OPERATOR Note: Requested medical records by fax from , Dr. Em in [facility]. Attempted to call clinic directly for records, waited on hold for more than ten minutes, unable to reach a person to complete request.
[2024-10-12] MEDS: HYDROMORPHONE 0.5 MG INJ IV (09:42)
--- NOTE | 2024-10-12 10:32 | DI.MRI.S_ITS ---
PROCEDURE: MR HEAD/BRAIN WO/W CON INDICATIONS: gen weakness and incoordination TECHNIQUE: Noncontrast axial T1 spin echo, axial T2 fast spin echo, sagittal and axial FLAIR, coronal T2 fast spin echo, axial gradient echo, axial diffusion and ADC through the brain. After the administration of contrast, axial and coronal and sagittal T1 spin echo with fat saturation through the brain. COMPARISON: [facility], MR, MR HEAD/BRAIN WO CON, 07/09/2023, 7:28. FINDINGS: Image quality: Excellent. CSF spaces: Basal cisterns are patent. No extra-axial fluid collections. Ventricles are normal in size and shape. Brain: No midline shift. No intracranial bleeds or masses. No abnormal intracranial enhancement. There is cerebral volume loss for age. There is mild periventricular white matter chronic small vessel ischemic change. The brainstem appears normal. Diffusion-weighted images demonstrate a tiny subtle acute punctate posterior left deep white matter infarct. Reference axial diffusion weighted image 18 series 11 and ADC map image 18 of series 11. Suspect tiny acute 1 mm right parietal cortical infarct. Reference image 17 of series 11. No chronic ischemic insults. Normal intravascular flow voids are present. Skull and face: Calvarial marrow is normal in signal. Orbits appear normal. Sinuses: Sinuses and mastoids appear clear. IMPRESSION: 1. Very small punctate acute left posterior frontal deep white matter infarct. 2. Suspect tiny punctate right parietal cortical infarct. 3. Age-related volume loss and mild small vessel ischemic change. Dictated by: Thomas Escobar M.D. on 10/12/2024 at 11:05 Approved by: Thomas Escobar M.D. on 10/12/2024 at 11:15
--- NOTE | 2024-10-12 10:41 | PT-IP ANOTE ---
PT order received. PT reviewed chart and came down to the ED. Nsg reports that pt is in testing for her brain. Con't PT efforts.
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
--- NOTE | 2024-10-12 11:29 | PT-IP ANOTE ---
PT is able to review cervical MRI and brain MRI results after assessment and pt is found to have acute stroke with the following findings: IMPRESSION: 1. Very small punctate acute left posterior frontal deep white matter infarct. 2. Suspect tiny punctate right parietal cortical infarct. 3. Age-related volume loss and mild small vessel ischemic change.
--- NOTE | 2024-10-12 12:07 | DI.CT.S_ITS ---
PROCEDURE: CT ANGIO HEAD AND NECK INDICATIONS: cva on MR TECHNIQUE: After the administration of intravenous contrast, 1 mm thick sections acquired from the aortic arch through the [place]. 3-dimensional nrpdxay-kxrtgsyls-szbvwrnakz (MIP) and/or volume rendering reformats were acquired of the central intracranial vasculature and neck separately. For radiation dose reduction, the following was used: automated exposure control, adjustment of mA and/or kV according to patient size. COMPARISON: [facility], CT, CT HEAD/BRAIN WO CON, 09/12/2024, 8:01. [facility], MR, MR HEAD/BRAIN WO/W CON, 10/12/2024, 9:47. [facility], CT, CT ANGIO HEAD AND NECK, 09/12/2024, 8:01. FINDINGS: Image quality: Diagnostic. BRAIN: CSF spaces: Ventricles are normal in size and shape. Basal cisterns are patent. No extra-axial fluid collections. Brain: No significant abnormality of the brain can be seen. Skull and face: Calvarium and facial bones appear intact, without suspicious lesions. Orbits appear normal. Sinuses: Sinuses and mastoids are clear. HEAD CT ANGIOGRAPHY: Anterior circulation: Intracranial internal carotid arteries are normal in size and flow. The flow within the paired anterior cerebral arteries is normal and symmetric. The flow within the middle cerebral arteries is normal and symmetric. The anterior communicating artery is seen. No aneurysms are seen. Posterior circulation: Visualized portions of the vertebral arteries demonstrate normal caliber, and join to form a normal appearing basilar artery. Flow within the posterior cerebral arteries is normal and symmetric. No aneurysms are seen. NECK CT ANGIOGRAPHY: Carotid system: The great vessels demonstrate a conventional anatomy as they arise from the aortic arch. The origins of the common carotid arteries appear patent. The common carotid arteries demonstrate normal caliber and courses. The bifurcation regions are both widely patent. The internal carotid arteries demonstrate normal calibers and courses. Posterior circulation: The origins of the vertebral arteries both appear widely patent. The more superior extracranial portions of both vertebral arteries also demonstrate normal courses and calibers. They join to form a normal appearing basilar artery. Soft tissues: Visualized neck soft tissues demonstrate no suspicious abnormalities. Bones: No suspicious bony lesions. Visualized cervical spine appears normally aligned. IMPRESSION: No significant intracranial arterial abnormality is seen. No significant abnormality is seen within the arteries of the neck. Any quantitative measurements of stenosis were performed using NASCET criteria. Dictated by: Thomas Escobar M.D. on 10/12/2024 at 13:00 Approved by: Thomas Escobar M.D. on 10/12/2024 at 13:03
[2024-10-12] MEDS: SODIUM CHLORIDE 0.9% 1,000 ML 1000 ML IV ×2 (12:27→16:42)
--- NOTE | 2024-10-12 13:58 | CM.SWNOTE ---
ED INK TECHNICIAN Note / APS Report: As a mandated telephone sales agent per RCW 74.34.035 I have given confidential information about the patient to Adult Protective Services intake team. Intake # [id number]. Mary Oliveira, DRIER TRANSFER CAR OPERATOR
--- NOTE | 2024-10-12 17:17 | P.HP_ITS ---
History of Present Illness History of Present Illness Date Patient Seen: 10/12/24 Chief complaint: unable to care self Narrative: Chief complaint: Failure to thrive, unable to ambulate stigmata suggestive of Wernicke-Korsakoff syndrome, vermal degeneration and hallucinosis History of present illness: 54-year-old female with a long history of alcohol use chronic anxiety previous admissions for accidental overdosing combining benzodiazepines with alcohol who has been bed-bound and chair or chair bound for the past month unable to care for self. By report since her discharge September 15 she has not been able to get out of bed she has multiple sores over her sacrum Workup in the emergency department notable for MRI demonstrating small punctate CVA and frontal deep white matter and possibly right parietal cortex CTA of head and neck unremarkable echocardiogram from previous admission is also unremarkable CT of the cervical spine is unremarkable as well White count 11.8 73% neutrophils hemoglobin 11.8 platelets 277 Sodium 133 potassium 4 BUN creatinine 21 and 0.6 AST 59 ALT 25 CK 272 troponin below reference range TSH 7.19 T4 6.5 Chest x-ray is clear Review of systems: Patient can not give a good review of systems due to cognitive impairment Physical exam: Very poorly groomed cachectic chronically ill confused female appearing much older than stated age HEENT poor dentition with facial stigmata of chronic alcoholism Neck no thyromegaly no JVD Lungs clear Heart rate and rhythm regular no murmurs Abdomen is scaphoid nondistended no shifting dullness bowel sounds present Extremities with wasted atrophied muscles diffuse Neurologic exam Generally Dre phrenic and laconic bradykinetic distracting and very tangential Patient is demonstrating formication picking off seeds and lit cigarettes Patient has right eye nystagmus and right 6th nerve ocular palsy Cranial nerves otherwise intact No visual field defects 4/5 strength of all extremities diffusely Patient has gross dysmetria [id number] Unable to stand Assessment and plan: Acute and subacute CVA punctate infarct right frontal white matter and possible punctate left parietal * Aspirin high-intensity statin * Patient has recent echocardiogram no indication to repeat * Rehab placement Wernicke-Korsakoff syndrome: * High-dose thiamine 500 mg IV q.8 hours taper as per protocol * Very poor adaptation to circumstances * Prognosis grim 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 * Limited rehabilitation potential * B vitamin supplementation, limited benefit Alcohol withdrawal delirium * [facility] protocol for sympathetic hyperactivity, however I think the window to prevent neurologic injury has been missed * Haldol for psychotic symptoms Stage III sacral decubiti * Wound contact consult Benzodiazepine and baclofen dependence * Continue home doses and consider slow taper Peripheral neuropathy probable alcoholic * B vitamin supplementation, limited options Failure to thrive * Suspect he will need placed DVT prophylaxis with subcutaneous heparin Code status: * Full code [facility] Medical History Amenorrhea Neuropathy Chronic venous insufficiency Obstructive sleep apnea (Unknown) GERD (gastroesophageal reflux disease) (Unknown) Allergy (Unknown) Restless leg syndrome (2014) Anxiety (1989) Shoulder pain (Unknown) Foot pain (2003) Chronic back pain (Unknown) Vertigo (1979) Painful menstrual periods (Unknown) Heavy menses (Unknown) IBS (irritable bowel syndrome) (1985) Surgical History 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) Hx of sinus surgery (2011) History of removal of laparoscopic gastric banding device (2014) Hx of laparoscopic gastric banding (2011) Family History Grandmother Cancer Mental health problem Mother Age: 76 Mental health disorder Sister Age: 58 Heart disease Hypertension High cholesterol Mental health problem Asthma COPD (chronic obstructive pulmonary disease) Social History household members: spouse and family Smoking Status: Current every day smoker Tobacco: How many years used: 10 second hand exposure: No alcohol intake: current substance use type: does not use Meds Home Medications and Allergies Home Medications Medication Instructions Recorded Confirmed Type baclofen 20 mg tablet 20 mg PO TID PRN Muscle Spasm 7 08/14/21 08/21/24 Rx days #20 tabs escitalopram oxalate 20 mg tablet 20 mg PO DAILY #90 tabs 05/13/23 08/21/24 Rx clonazepam 0.5 mg tablet 0.5 mg PO BID PRN Anxiety #60 tabs 07/08/23 08/21/24 Rx dicyclomine 10 mg capsule 10 mg PO 4XD PRN IBS 07/09/23 08/21/24 History levothyroxine 75 mcg tablet 75 mcg PO DAILY Hypothyroidism 07/09/23 08/21/24 History ondansetron HCl 8 mg tablet 8 mg PO Q8HR PRN Nausea And 07/09/23 08/21/24 History Vomiting estradiol 0.5 mg tablet 0.5 mg PO DAILY Hormone 03/12/24 08/21/24 Rx replacement therapy #90 tabs progesterone micronized 100 mg 100 mg PO QAM Hormone replacement 03/12/24 08/21/24 Rx capsule (Prometrium) #90 caps albuterol sulfate 90 mcg/actuation 2 puff inhalation Q4H PRN wheezing 08/21/24 08/21/24 History aerosol inhaler hydrochlorothiazide 25 mg tablet 25 mg PO DAILY 08/21/24 08/21/24 History hydroxyzine HCl 50 mg tablet 50 mg PO Q6H PRN anxiety 08/21/24 08/21/24 History propranolol 20 mg tablet 20 mg PO 3XD PRN Anxiety 30 days 09/15/24 Rx #60 tabs Allergies Allergy/AdvReac Type Severity Reaction Status Date / Time No Known Drug Allergies Allergy Verified 09/13/22 13:48 Exam Vital Signs (past 8 hours): - 10/12/24 09:30 10/12/24 09:30 10/12/24 10:48 Pulse Rate 102 H Respiratory Rate Blood Pressure 98/66 102/63 Pulse Oximetry 100 10/12/24 10:48 10/12/24 11:24 10/12/24 11:24 Pulse Rate 103 H 105 H Respiratory Rate Blood Pressure 106/62 Pulse Oximetry 98 100 10/12/24 11:30 10/12/24 11:30 10/12/24 12:00 Pulse Rate 102 H 101 H Respiratory Rate Blood Pressure 94/69 Pulse Oximetry 100 100 10/12/24 12:00 10/12/24 12:39 10/12/24 12:46 Pulse Rate 101 H Respiratory Rate Blood Pressure 96/75 104/65 Pulse Oximetry 10/12/24 13:00 10/12/24 13:00 10/12/24 16:00 Pulse Rate 98 H 97 H Respiratory Rate 16 Blood Pressure 116/80 Pulse Oximetry 100 86 L Oxygen Delivery Method Room Air Objective Labs 10/12/24 06:40 10/12/24 06:40 Labs: Laboratory Results - last 24 hr 10/12/24 10/12/24 06:40 08:36 WBC 11.2 H RBC 4.20 Hgb 11.8 L Hct 36.0 MCV 85.9 MCH 28.1 MCHC 32.8 RDW 16.4 H Plt Count 277 Neut % (Auto) 73.1 Lymph % (Auto) 19.9 L [place] % (Auto) 5.9 Eos % (Auto) 0.7 L Baso % (Auto) 0.4 Neut # (Auto) 8200 H Lymph # (Auto) 2200 [place] # (Auto) 700 Eos # (Auto) 100 Baso # (Auto) 0 Sodium 133 L Potassium 4.0 Chloride 105 Carbon Dioxide 20 L BUN 21 H Creatinine 0.62 Estimated GFR > 60 BUN/Creatinine Ratio 33.9 H Glucose 69 L Lactate 1.2 Calcium 8.9 Magnesium 2.2 Total Bilirubin 0.9 AST 59 H ALT 25 Alkaline Phosphatase 174 H Total Creatine Kinase 272 H Troponin I 0.035 H 0.029 Total Protein 6.1 L Albumin 2.9 L Globulin 3.2 Albumin/Globulin Ratio 0.9 L TSH 7.19 H Thyroxine (T4) 6.55 Ethyl Alcohol < 10 Assessment & Plan Time-Based Coding :: 75 minutes spent with patient and on the chart (including review of chart, obtaining history, exam, reviewing outside data, placing orders, documenting exam and treatment plan, and counseling patient) .
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
[2024-10-12 17:59] LABS: Cholesterol 185 mg/dL (140-199); HDL Cholesterol 67 mg/dL (40-60); LDL Cholesterol Calculated 78 mg/dL (<100); Triglycerides 200 mg/dL (35-150)
--- NOTE | 2024-10-12 18:00 | PC.WOUNDPHOT ---
Wound Photos taken by Starr ODEN 10/12/24 at 1730.
[2024-10-12 18:03] LABS: Hemoglobin A1C% w Est Avg Glu < 4.0 % (4.0-6.0)
[2024-10-12] MEDS: clonazePAM 0.5 MG TABLET PO (18:09)
[2024-10-12] MEDS: BACLOFEN 10 MG TABLET 20 MG PO (18:09)
[2024-10-12] MEDS: PROPRANOLOL 10 MG TABLET 20 MG PO (18:09)
[2024-10-12] MEDS: THIAMINE 500 MG in SODIUM CHLORIDE 0.9% 100 ML 420 MG IV (18:09)
[2024-10-12] MEDS: SODIUM CHLORIDE 0.9% FLUSH 10 ML IV (19:15)
[2024-10-12] MEDS: ATORVASTATIN 20 MG TABLET 80 MG PO (20:05)
[2024-10-12] MEDS: diazePAM 5 MG TABLET PO (20:05)
[2024-10-12] MEDS: HEPARIN 5,000 UNIT/ML VIAL 5000 UNIT SUBCUT (20:06)
[2024-10-12 22:16] LABS: Appearance Urine UA CLOUDY; Bilirubin Urine UA 1+ (NEGATIVE); Color Urine UA YELLOW; Glucose Urine UA NEGATIVE (Negative); Ketones Urine UA 1+ (NEGATIVE); Leukocyte Esterase Urine UA 1+ (NEGATIVE); Nitrite Urine UA NEGATIVE (Negative); Occult Blood Urine UA NEGATIVE (Negative); Protein Urine UA 1+ (Negative); Specific Gravity Urine UA 1.015 (1.000-1.035)
[2024-10-12 22:19] LABS: pH Urine UA 6.5 (4.5-8.0)
[2024-10-12 22:20] LABS: Urine Amphetamines Negative (Negative); Urine Barbiturates Negative (Negative); Urine Benzodiazepines Negative (Negative); Urine Cocaine Negative (Negative); Urine MDMA Negative (Negative); Urine Methadone Negative (Negative); Urine Opiates Negative (Negative); Urine Oxycodone Negative (Negative); Urine Phencyclidine Negative (Negative); Urine THC Negative (Negative); Urine Tricyclic Antidepressant Negative (Negative)
[2024-10-12 22:23] LABS: Bacteria Urine Many (>30); Calcium Oxalate Crystals Urine Occasional; Culture Indicated Urine Specimen Cultured; Ictotest Urine Negative (Negative); RBC Urine None Seen (0-5/HPF); Squamous Epithelial Cell Urine 1-5 /HPF (0-5/HPF); Urine Volume 10mL (spun); WBC Urine 5-10/HPF (0-5/HPF)
[2024-10-13] VITALS (8 sets, daily range): BP systolic 96–115; BP diastolic 56–82; PULSE 81–99; RESP 16–18; TEMP 36.5–36.8; O2SAT 95–100
--- NOTE | 2024-10-13 01:04 | PC.NURSE ---
Patient very agitated and anxious at start of shift; using profanity. CIWA at that time was 10 so was medicated with Diazepam and became less anxious after 60 minutes. Is oriented except was off on day of month and day of week and unable to state why she was in the hospital. NIH was 4 related to ataxia, communication problems and gaze difficulty due to nystagmus. Breath sounds CTA with RA sat of 100%. HRR and telemetry reading was SR. Denied nausea. BT present and abdomen is soft. Had not voided for 11 hours but bladder scan was 281 and external catheter was in place; later had large incontinent void with minimal amount in external catheter cannister. UA was sent to lab for UA and drug screen. Is able to assist with repositioning in bed but doesn't move purposefully on her own so is being assisted to turn q2h. Pressure ulcer to coccyx and dressing over that area is CDI. Gait not assessed and has poor ROM in bilateral LE; does not appear to be able to straighten legs at all. SCD's not applied at this time related to anxiety. Denied pain. Fall risk score is high and bed alarm is activated. Seizure pads are in place.
[2024-10-13] MEDS: THIAMINE 500 MG in SODIUM CHLORIDE 0.9% 100 ML 420 MG IV ×3 (01:28→17:09)
[2024-10-13] MEDS: SODIUM CHLORIDE 0.9% FLUSH 10 ML IV ×3 (01:29→17:09)
[2024-10-13] MEDS: diazePAM 5 MG TABLET PO (04:08)
[2024-10-13] MEDS: LEVOTHYROXINE 75 MCG TABLET PO (05:40)
--- NOTE | 2024-10-13 07:35 | P.PN_ITS ---
Subjective Subjective Date Patient Seen: 10/13/24 Interval history: Chief complaint: Failure to thrive, unable to ambulate stigmata suggestive of Wernicke-Korsakoff syndrome, vermal degeneration and hallucinosis History of present illness: 54-year-old female with a long history of alcohol use chronic anxiety previous admissions for accidental overdosing combining benzodiazepines with alcohol who has been bed-bound and chair or chair bound for the past month unable to care for self. By report since her discharge September 15 she has not been able to get out of bed she has multiple sores over her sacrum Workup in the emergency department notable for MRI demonstrating small punctate CVA and frontal deep white matter and possibly right parietal cortex CTA of head and neck unremarkable echocardiogram from previous admission is also unremarkable CT of the cervical spine is unremarkable as well White count 11.8 73% neutrophils hemoglobin 11.8 platelets 277 Sodium 133 potassium 4 BUN creatinine 21 and 0.6 AST 59 ALT 25 CK 272 troponin below reference range TSH 7.19 T4 6.5 Chest x-ray is clear Hospital course: 10/13: Seemingly more cogent today however too weak to sit up in bed even for physical therapy [id number] is less dysmetric today Review of systems: Patient can not give a good review of systems due to cognitive impairment Physical exam: Very poorly groomed cachectic chronically ill confused female appearing much older than stated age HEENT poor dentition with facial stigmata of chronic alcoholism Neck no thyromegaly no JVD Lungs clear Heart rate and rhythm regular no murmurs Abdomen is scaphoid nondistended no shifting dullness bowel sounds present Extremities with wasted atrophied muscles diffuse Neurologic exam Generally Dre phrenic and laconic bradykinetic distracting and very tangential Patient is demonstrating formication picking off seeds and lit cigarettes Patient has right eye nystagmus and right 6th nerve ocular palsy Cranial nerves otherwise intact No visual field defects 4/5 strength of all extremities diffusely Patient has gross dysmetria [id number] Unable to stand Assessment and plan: Acute and subacute CVA punctate infarct right frontal white matter and possible punctate left parietal * Aspirin high-intensity statin * Patient has recent echocardiogram no indication to repeat * Rehab placement Wernicke-Korsakoff syndrome: * High-dose thiamine 500 mg IV q.8 hours taper as per protocol * Very poor adaptation to circumstances * Prognosis guarded 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 * Limited rehabilitation potential * B vitamin supplementation, limited benefit Alcohol withdrawal delirium * [facility] protocol for sympathetic hyperactivity, however I think the window to prevent neurologic injury has been missed * Haldol for psychotic symptoms Stage III sacral decubiti * Wound contact consult Benzodiazepine and baclofen dependence * Continue home doses and consider slow taper Peripheral neuropathy probable alcoholic * B vitamin supplementation, limited options Failure to thrive * Suspect she will need placed * Alternatively may be cared for by with help in the home DVT prophylaxis with subcutaneous heparin Code status: * Full code Time based billin minutes spent with patient and on the chart (including review of chart, obtaining history, exam, reviewing outside data, placing orders, documenting exam and treatment plan, and counseling patient. Exam Vital Signs (past 8 hours): - 10/13/24 00:00 10/13/24 05:30 Temperature 98 F 98.1 F Pulse Rate 81 82 Respiratory Rate 18 18 Blood Pressure 115/81 110/78 Pulse Oximetry 100 98 Oxygen Flow Rate 0 0 Oxygen Delivery Method Room Air Oxygen Flow Rate 0 Objective Labs 10/13/24 08:31 10/12/24 06:40 Labs: Laboratory Results - last 24 hr 10/12/24 10/12/24 10/12/24 06:40 08:36 22:00 Hemoglobin A1c < 4.0 L Troponin I 0.029 Triglycerides 200 H Cholesterol 185 LDL Cholesterol, Calc 78 HDL Cholesterol 67 H TSH 7.19 H Thyroxine (T4) 6.55 Urine Color Yellow Urine Appearance Cloudy Urine pH 6.5 Ur Specific Warrior 1.015 Urine Protein 1+ H Urine Glucose (UA) Negative Urine Ketones 1+ H Urine Occult Blood Negative Urine Nitrate Negative Urine Bilirubin 1+ H Ur Bilirubin Confirm Negative Urine Urobilinogen 1.0 Ur Leukocyte Esterase 1+ H Urine RBC None seen Urine WBC 5-10/hpf H Ur Squamous Epith Cells 1-5 /hpf Calcium Oxalate Crystal Occasional H Urine Bacteria Many (>30) H Ur Culture Indicated? Specimen cultured Vol Urine Centrifuged 10ml (spun) U Opiates 300ng/mL cut Negative Ur Oxycodone Screen Negative Urine Methadone Screen Negative Ur Barbiturates Screen Negative U Tricyclic Antidepress Negative Ur Phencyclidine Scrn Negative Ur Amphetamines Screen Negative U Methamphetamines Scrn Negative Ur MDMA Scrn (Ecstasy) Negative U Benzodiazepines Scrn Negative Urine Cocaine Screen Negative U Marijuana (THC) Screen Negative Urine Specific Warrior Ur Creatinine 10/12/24 22:00 Hemoglobin A1c Troponin I Triglycerides Cholesterol LDL Cholesterol, Calc HDL Cholesterol TSH Thyroxine (T4) Urine Color Urine Appearance Urine pH TNP Ur Specific Warrior Urine Protein Urine Glucose (UA) Urine Ketones Urine Occult Blood Urine Nitrate Urine Bilirubin Ur Bilirubin Confirm Urine Urobilinogen Ur Leukocyte Esterase Urine RBC Urine WBC Ur Squamous Epith Cells Calcium Oxalate Crystal Urine Bacteria Ur Culture Indicated? Vol Urine Centrifuged U Opiates 300ng/mL cut Ur Oxycodone Screen Urine Methadone Screen Ur Barbiturates Screen U Tricyclic Antidepress Ur Phencyclidine Scrn Ur Amphetamines Screen U Methamphetamines Scrn Ur MDMA Scrn (Ecstasy) U Benzodiazepines Scrn Urine Cocaine Screen U Marijuana (THC) Screen Urine Specific Warrior TNP Ur Creatinine TNP PFSH Medical History Amenorrhea Neuropathy Chronic venous insufficiency Obstructive sleep apnea (Unknown) GERD (gastroesophageal reflux disease) (Unknown) Allergy (Unknown) Restless leg syndrome (2014) Anxiety (1989) Shoulder pain (Unknown) Foot pain (2003) Chronic back pain (Unknown) Vertigo (1979) Painful menstrual periods (Unknown) Heavy menses (Unknown) IBS (irritable bowel syndrome) (1985) Surgical History 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) Hx of sinus surgery (2011) History of removal of laparoscopic gastric banding device (2014) Hx of laparoscopic gastric banding (2011) Family History Grandmother Cancer Mental health problem Mother Age: 76 Mental health disorder Sister Age: 58 Heart disease Hypertension High cholesterol Mental health problem Asthma COPD (chronic obstructive pulmonary disease) Social History household members: spouse and family Smoking Status: Current every day smoker Tobacco: How many years used: 10 second hand exposure: No alcohol intake: current substance use type: does not use Quality VTE Deep Vein Thrombosis/Pulmonary Embolism Present on Admission: No
[2024-10-13 08:55] LABS: Add Manual Diff / Slide Review NO; Basophils Absolute Auto 100 /uL (0-100); Basophils Percent Auto 0.8 % (0-2); Eosinophils Absolute Auto 100 /uL (0-450); Eosinophils Percent Auto 1.1 % (2-4); Hematocrit 27.5 % (36-46); Hemoglobin 8.9 g/dL (12.0-16.0); Lymphocytes Absolute Auto 2200 /uL (1100-4500); Lymphocytes Percent Auto 31.6 % (25-40); Mean Corpuscular HGB Conc 32.5 % (30-36); Mean Corpuscular Hemoglobin 28.1 PG (26-34); Mean Corpuscular Volume 86.5 fL (80-100); Monocytes Absolute Auto 400 /uL (0-900); Monocytes Percent Auto 6.2 % (3-14); Neutrophils Absolute Auto 4200 /uL (1500-7000); Neutrophils Percent Auto 60.3 % (50-75); Platelet Count 195 X10^3/uL (150-400); Red Blood Cell Count 3.18 X10^6/uL (4.0-5.2); Red Cell Distribution Width 16.2 % (11.6-14.8)
[2024-10-13] MEDS: ASPIRIN EC 81 MG TABLET PO (09:15)
[2024-10-13] MEDS: HEPARIN 5,000 UNIT/ML VIAL 5000 UNIT SUBCUT ×2 (09:16→21:05)
[2024-10-13] MEDS: MULTIVITAMIN 1 TABLET 1 TAB PO (09:16)
[2024-10-13] MEDS: NICOTINE 14 PATCH 14 MG TOP (09:16)
[2024-10-13] MEDS: estradioL 1 MG TABLET 0.5 MG PO (09:16)
[2024-10-13] MEDS: FOLIC ACID 1 MG TABLET PO (09:16)
[2024-10-13] MEDS: PROGESTERONE, MICRONIZED 100 MG CAPSULE PO (09:17)
[2024-10-13] MEDS: ESCITALOPRAM 10 MG TABLET 20 MG PO (09:23)
--- NOTE | 2024-10-13 11:59 | ST.IPCSEOM ---
Visit Care Team Role Provider Type Barry Em MD Family Provider Non-Staff Primary Care Provider Specialty: Family Practice Address: [address] [facility], [address], [place], [address] Email: Chris Monroe MD Emergency Provider Physician Referring Provider Specialty: Emergency Medicine Address: [facility] [address], [place], [address] Email: [email or web address] Ammon Valencia MD Admit Provider Physician Attending Provider Specialty: Hospitalist Address: [facility] [place] [address], [id number] Fax: Email: [email or web address] Current Diagnoses Cerebral infarction, unspecified (10/12/24) Past Medical History (Last Reviewed 10/12/24 @ 06:39 by Estela Romero DO) Allergy (Medical Unknown) Amenorrhea (Medical) Anxiety (Medical 1989) Chronic back pain (Medical Unknown) Chronic venous insufficiency (Medical) Foot pain (Medical 2003) GERD (gastroesophageal reflux disease) (Medical Unknown) Heavy menses (Medical Unknown) IBS (irritable bowel syndrome) (Medical 1985) Neuropathy (Medical) Obstructive sleep apnea (Medical Unknown) Painful menstrual periods (Medical Unknown) Restless leg syndrome (Medical 2014) Shoulder pain (Medical Unknown) Vertigo (Medical 1979) Speech-Language Pathology Swallow Evaluation [employer]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 Valencia Reason for Referral Acute stroke Setting Assessment Location Acute Care Patient Information Identification Type Name,Wristband History Per H&P:Failure to thrive, unable to ambulate stigmata suggestive of Wernicke- Korsakoff syndrome, vermal degeneration and hallucinosis History of present illness: 54-year-old female with a long history of alcohol use chronic anxiety previous admissions for accidental overdosing combining benzodiazepines with alcohol who has been bed-bound and chair or chair bound for the past month unable to care for self. By report since her discharge September 15 she has not been able to get out of bed she has multiple sores over her sacrum Workup in the emergency department notable for MRI demonstrating small punctate CVA and frontal deep white matter and possibly right parietal cortex CTA of head and neck unremarkable echocardiogram from previous admission is also unremarkable CT of the cervical spine is unremarkable as well White count 11.8 73% neutrophils hemoglobin 11.8 platelets 277 Sodium 133 potassium 4 BUN creatinine 21 and 0.6 AST 59 ALT 25 CK 272 troponin below reference range TSH 7.19 T4 6.5 Chest x-ray is clear Pt referred for ST evaluation d/t CVA and poor intake. Subjective Observations Pt awake, laying in bed. Pt Ox3. 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 Pt reports she can' t eat a lot d/t gastric sleeve . Nursing reports she has been consuming pills without any difficulties. Pt with reduced participation d/t her reporting she can't sit upright for intake d/t sores on bottom, also nausea. Reported by Patient/Caregiver Current Diet Regular (IDDSI 7) Baseline Feeding Method Independent in self-feeding The IDDSI Framework Protocol: IDDSI.1 Objective Assessment Mental Status Alert,Responsive,Cooperative, Confused Comment Formal OME not completed d/t Pt with reduced motivation and participation for eval. Pt with clear speech and vocal quality and own dentition. ST suspects oral musculature WFL given informal assessment. Food and Liquid Trials Position During Assessment Upright (90 degrees) Liquids Trialed Ice chips,Thin (IDDSI 0) Solid Trials Regular (IDDSI 7) Administration Type Straw Oral Impairment Within functional limits Oral Phase Comments Pt compliant with consuming 1 bite of a wenceslao cracker, 2 ice chips and 1 sip of thin water via straw. For wenceslao cracker Pt took adequate bite size, good oral acceptance and containment, adequate mastication and good bolus formation and control, timely ap transport. For liquids and ice chip Pt exhibited adequate suction, good oral acceptance and containment. Pharyngeal Impairment Within functional limits Pharyngeal Phase Comments Pt exhibited no overt s/s of aspiration such as coughing or choking, however limited PO trials per Pt request. Pt with clear vocal quality post swallows. Fatigue/Endurance Mild fatigue The IDDSI Framework Protocol: IDDSI.1 Findings Swallowing Function Within functional limits Severity of Swallow Impairment Within functional limits Impact on Safety and Functioning Risk for inadequate nutrition/ hydration Recommendations Instrumental Assessment No Swallowing Treatment No Recommended Solids Regular (IDDSI 7) Recommended Liquids Thin (IDDSI 0) Other Recommendations ST recommends regular solids and thin liquids with the below mentioned safe swallowing strategies in place . ST recommends dietary consult d/t poor intake. Safety Precautions/Swallowing Remain upright (90 degrees) Recommendations during all oral intake,Upright position at least 30 minutes after meals,Small bites and sips when eating,Slow rate; swallow between bites, Alternate liquids and solids Discharge Recommendations [facility] facility Referrals Recommended Referrals Dietary Education Patient/Caregiver Education Described results of evaluation,Patient expressed understanding of evaluation
--- NOTE | 2024-10-13 12:05 | PT-IP ANOTE ---
checked on pt this morning and refused PT. stated that she has a lot of pain and wants the pain controlled first. will f/u this afternoon.
[2024-10-13] MEDS: BACLOFEN 10 MG TABLET 20 MG PO ×2 (13:38→21:19)
[2024-10-13] MEDS: clonazePAM 0.5 MG TABLET PO ×2 (13:38→21:19)
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
--- NOTE | 2024-10-13 15:29 | OT.IPNOTE ---
Check on pt for OT eval again and pt still eating lunch. To check on pt tomorrow for OT eval.
--- NOTE | 2024-10-13 15:34 | PT-IP ANOTE ---
checked on pt multiple times today. pt was getting meds first and PT has to check back. pt refused on 2nd attempt and c/o a lot of buttock pain and wants pain to be under controlled first. informed nurse this afternoon. checked back on pt and pt was just eating lunch at 1445. check back on pt after ~ an hour and pt was still eating lunch. pt with confusion and stated that she did not remember refusing PT this morning. will f/u tomorrow.
[2024-10-13] MEDS: ATORVASTATIN 20 MG TABLET 80 MG PO (21:05)
[2024-10-14] VITALS (7 sets, daily range): BP systolic 92–110; BP diastolic 65–80; PULSE 91–111; RESP 12–18; TEMP 36.2–36.7; O2SAT 96–100
[2024-10-14] MEDS: THIAMINE 500 MG in SODIUM CHLORIDE 0.9% 100 ML 420 MG IV ×2 (01:23→09:44)
[2024-10-14] MEDS: LEVOTHYROXINE 75 MCG TABLET PO (05:07)
--- NOTE | 2024-10-14 08:00 | P.PN_ITS ---
Subjective Subjective Interval history: Chief complaint: Failure to thrive, unable to ambulate stigmata suggestive of Wernicke-Korsakoff syndrome, vermal degeneration and hallucinosis History of present illness: 54-year-old female with a long history of alcohol use chronic anxiety previous admissions for accidental overdosing combining benzodiazepines with alcohol who has been bed-bound and chair or chair bound for the past month unable to care for self. By report since her discharge September 15 she has not been able to get out of bed she has multiple sores over her sacrum Workup in the emergency department notable for MRI demonstrating small punctate CVA and frontal deep white matter and possibly right parietal cortex CTA of head and neck unremarkable echocardiogram from previous admission is also unremarkable CT of the cervical spine is unremarkable as well White count 11.8 73% neutrophils hemoglobin 11.8 platelets 277 Sodium 133 potassium 4 BUN creatinine 21 and 0.6 AST 59 ALT 25 CK 272 troponin below reference range TSH 7.19 T4 6.5 Chest x-ray is clear Hospital course: 10/13: Seemingly more cogent today however too weak to sit up in bed even for physical therapy [id number] is less dysmetric today 10/14: Subjective: She is weak but denies hallucinations. She can not stand up. She is trying to eat her breakfast by picking up her eggs and fruit with her hands. She does have some degree of shakes. Exam Vital Signs (past 8 hours): - 10/14/24 04:00 Temperature 97.1 F L Pulse Rate 91 H Respiratory Rate 12 Blood Pressure 107/77 Pulse Oximetry 100 Oxygen Flow Rate 0 Oxygen Delivery Method Room Air Oxygen Flow Rate 0 Narrative Exam Narrative: NAD, alert and oriented. Fluent speech. She was extremely cachectic and appears chronically ill. Lungs are clear, normal rate and effort. Heart is regular, no murmur gallop or rub. Abdomen is soft, non distended. Extremities are free of edema. Neuro exam: She was shaky, moving arms and legs. She was oriented to place and time. She denies hallucinations. Objective Labs 10/14/24 08:11 10/12/24 06:40 Labs: Laboratory Results - last 24 hr 10/13/24 08:31 WBC 7.0 RBC 3.18 L Hgb 8.9 L Hct 27.5 L MCV 86.5 MCH 28.1 MCHC 32.5 RDW 16.2 H Plt Count 195 Neut % (Auto) 60.3 Lymph % (Auto) 31.6 Swisher % (Auto) 6.2 Eos % (Auto) 1.1 L Baso % (Auto) 0.8 Neut # (Auto) 4200 Lymph # (Auto) 2200 Swisher # (Auto) 400 Eos # (Auto) 100 Baso # (Auto) 100 PFSH Medical History Amenorrhea Neuropathy Chronic venous insufficiency Obstructive sleep apnea (Unknown) GERD (gastroesophageal reflux disease) (Unknown) Allergy (Unknown) Restless leg syndrome (2014) Anxiety (1989) Shoulder pain (Unknown) Foot pain (2003) Chronic back pain (Unknown) Vertigo (1979) Painful menstrual periods (Unknown) Heavy menses (Unknown) IBS (irritable bowel syndrome) (1985) Surgical History 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) Hx of sinus surgery (2011) History of removal of laparoscopic gastric banding device (2014) Hx of laparoscopic gastric banding (2011) Family History Grandmother Cancer Mental health problem Mother Age: 76 Mental health disorder Sister Age: 58 Heart disease Hypertension High cholesterol Mental health problem Asthma COPD (chronic obstructive pulmonary disease) Social History household members: spouse and family Smoking Status: Current every day smoker Tobacco: How many years used: 10 second hand exposure: No alcohol intake: current substance use type: does not use Assessment & Plan Assessment & Plan narrative: Acute and subacute CVA punctate infarct right frontal white matter and possible punctate left parietal * Aspirin, high-intensity statin * Patient has recent echocardiogram no indication to repeat * Rehab placement Wernicke-Korsakoff syndrome: * High-dose thiamine 500 mg IV q.8 hours taper as per protocol * Very poor adaptation to circumstances * Prognosis guarded 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 * Limited rehabilitation potential * B vitamin supplementation, limited benefit Alcohol withdrawal delirium * [facility] protocol for sympathetic hyperactivity, however I think the window to prevent neurologic injury has been missed * Haldol for psychotic symptoms Stage III sacral decubiti * Wound contact consult Benzodiazepine and baclofen dependence * Continue home doses and consider slow taper Peripheral neuropathy probable alcoholic * B vitamin supplementation, limited options ailure to thrive * Suspect she will need placed * Alternatively may be cared for by with help in the home PLAN: -will continue to use clonazepam as needed for anxiety. We will continue to encourage oral intake and monitor her strength. Discharge planning we will be very difficult given her ongoing struggles with alcohol use disorder. We will continue her medical treatment for cerebrovascular disease and high dose thiamine per protocol. DVT prophylaxis with subcutaneous heparin Code status: * Full code Time-Based Coding :: [TOTAL MINUTES] spent with patient and on the chart (including review of chart, obtaining history, exam, reviewing outside data, placing orders, documenting exam and treatment plan, and counseling patient) on [DATE]. Quality VTE Deep Vein Thrombosis/Pulmonary Embolism Present on Admission: No
[2024-10-14 08:28] LABS: Add Manual Diff / Slide Review NO; Basophils Absolute Auto 0 /uL (0-100); Basophils Percent Auto 0.5 % (0-2); Eosinophils Absolute Auto 200 /uL (0-450); Eosinophils Percent Auto 2.1 % (2-4); Hematocrit 28.4 % (36-46); Hemoglobin 9.5 g/dL (12.0-16.0); Lymphocytes Absolute Auto 2300 /uL (1100-4500); Lymphocytes Percent Auto 29.3 % (25-40); Mean Corpuscular HGB Conc 33.4 % (30-36); Mean Corpuscular Hemoglobin 28.9 PG (26-34); Mean Corpuscular Volume 86.5 fL (80-100); Monocytes Absolute Auto 500 /uL (0-900); Monocytes Percent Auto 6.8 % (3-14); Neutrophils Absolute Auto 4800 /uL (1500-7000); Neutrophils Percent Auto 61.3 % (50-75); Platelet Count 185 X10^3/uL (150-400); Red Blood Cell Count 3.28 X10^6/uL (4.0-5.2); White Blood Cell Count 7.8 X10^3/uL (4.5-11.0)
[2024-10-14] MEDS: FOLIC ACID 1 MG TABLET PO (09:28)
[2024-10-14] MEDS: PROGESTERONE, MICRONIZED 100 MG CAPSULE PO (09:28)
[2024-10-14] MEDS: ASPIRIN EC 81 MG TABLET PO (09:28)
[2024-10-14] MEDS: NICOTINE 14 PATCH 14 MG TOP (09:28)
[2024-10-14] MEDS: ESCITALOPRAM 10 MG TABLET 20 MG PO (09:28)
[2024-10-14] MEDS: MULTIVITAMIN 1 TABLET 1 TAB PO (09:28)
[2024-10-14] MEDS: HEPARIN 5,000 UNIT/ML VIAL 5000 UNIT SUBCUT ×2 (09:29→20:36)
[2024-10-14] MEDS: estradioL 1 MG TABLET 0.5 MG PO (09:44)
[2024-10-14] MEDS: SODIUM CHLORIDE 0.9% FLUSH 10 ML IV ×2 (09:45→20:36)
--- NOTE | 2024-10-14 10:22 | PC.NURSE ---
Pt sitting up in bed-states she is feeling well today and is hoping to get up with PT. Discussed with Pt what she wants to happen going forward with regards to her medical future and well-being. Pt stated I want to get better, I want to be able to walk but I don't think I can. Encouraged Pt to work with PT today and really try and she stated she would. Pt is eating very slowly and dietary recommended that her breakfast tray be removed however Pt declined having the tray removed and stated she wanted to keep it. Reminded Pt that it is not safe to keep her food out, cooked and un-refridgerated from breakfast and Pt stated again that I was not to remove her tray and that she wanted to keep it.
--- NOTE | 2024-10-14 10:35 | PT.IPTN ---
Current Diagnoses Cerebral infarction, unspecified (10/12/24) Physical Therapy Treatment Note M2 PT-IP Current Condition Start: 10/12/24 09:30 Freq: Status: Active Protocol: Document 10/12/24 10:47 MB (Rec: 10/12/24 11:25 MB Desktop) Physical Therapy Current Condition Current Condition Evaluation Date 10/12/24 Treatment Diagnosis Adm with weakness M3 PT-IP Subjective Start: 10/12/24 09:30 Freq: Status: Active Protocol: Document 10/14/24 10:35 AB (Rec: 10/14/24 11:27 AB [id number]) Subjective Physical Therapy Visit Type Type Treatment Note Visit Start Time 10:35 Visit Stop Time 11:15 Number of LAST CHALKER Visits 0 M4 PT-IP Mobility and Gait Start: 10/12/24 09:30 Freq: Status: Active Protocol: Document 10/14/24 10:35 AB (Rec: 10/14/24 11:27 AB [id number]) PT-Bed Mobility Assessment Supine to Sit Supine to Sit Maximum Assistance,Total Assistance,2 Person Assistance ,Head of Bed Elevated,Bedrails Scooting Scooting to Edge of Bed Dependent PT-Transfer Assessment Sit to and From Stand Sit to and from Stand Maximum Assistance,2 Person Assistance,Use of Upper Extremities Equipment Orthotic/Prosthetic Devices or Brace: No Transfers Transfer Destination Chair Transfer Technique Squat Pivot Transfer Ability Level of Assist Maximum Assistance,2 Person Assistance,Use of Upper Extremities Comments Mobility Comments pt in bed and lethargic. needed constant cues to stay awake. supine to sit max x 2 to total A x 2. max A for sitting balance. pt keeps dozing off and needed constant cues. scooted pt to EOB max A. nurse and nurse student in room to assist. nurse informed that they need to check pt's sacral area for dressing change. sit to stand max A x 2 to total A x 2 x 2 attempts but pt unable to stand. pt agreed to sit up on the chair. completed squat pivot transfer with PT in front and nurse behind pt to assist. Assisted with sit to stand x2 with rest breaks in between for brief change and dressing change. required max A x 2 for sit to stand with PT supporting pt from the front. needed LE blocking and assisted pt to weight bear on LE. positioned pt on the chair total A x 2. Left pt with nurse. PT-Balance Assessment Sitting Balance and Reactions Static Sitting Balance Ability Poor Dynamic Sitting Balance Ability Poor Standing Balance and Reactions Static Standing Balance Ability Poor Dynamic Standing Balance Ability Poor Device Used FWW 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,Test Administrator Impaired Comments Pt does not clearly state full history when asked Gross Range of Motion Upper Extremity ROM Assessment Bilaterally Impaired Lower Extremity ROM Assessment Bilaterally Impaired Strength Comments Strength Comments Pt does not tolerate formal range and MMT today d/t pain and she has global muscle atrophy, cachexia Coordination Assessment Assessment Coordination Comments NT Sensation Assessment Comments Sensation Comments NT M6 PT-IP Treatment Start: 10/12/24 09:30 Freq: Status: Active Protocol: Document 10/14/24 10:35 AB (Rec: 10/14/24 11:27 AB [id number]) Physical Therapy Treatment Education Education Provided Safety M7 PT-IP Assessment and Plan Start: 10/12/24 09:30 Freq: Status: Active Protocol: Document 10/14/24 10:35 AB (Rec: 10/14/24 11:27 AB [id number]) PT Summary Assessment and Plan Potential Rehabilitation Potential Fair Summary Impairments Pain,ROM,Strength,Balance, Coordination,Sensation,Tone, Cognition,Bed Mobility, Transfers,Gait,Activity Tolerance Progress Towards Goals Slow Progress due to Medical Issues,Slow Progress due to Activity Tolerance,Slow Progress - Other Assessment Summary pt requiring max A x 2 to total A x 2 with mobilities and unable to ambulate at this time. pt will require SNF rehab to improve function and mobility. Goals Bed Mobility Goal Minimal Assistance Transfer Goal Minimal Assistance,Front Wheeled Walker Gait Goal Minimal Assistance,Front Wheel Walker Gait Distance 25 Days to Meet Goals 10 Frequency of Treatment Frequency Of Treatment Once a Day Treatment Plan Physical Therapy Treatment Plan Bed Mobility Training,Transfer Training,Gait Training, Therapeutic Exercise,Balance Retraining,Discharge Planning, Neuromuscular Re-ed, Coordination Retraining,Manual Therapy Precautions Other Precautions falls Recommendations To Nursing Amount of Assist Needed Mechanical Lift Discharge Recommendations PT Discharge Recommendations SNF Rehab Transportation Needs at Discharge Wheelchair/Cabulance,Stretcher /Ambulance - PT assist 2
--- NOTE | 2024-10-14 11:32 | PC.WOUNDPHOT ---
New photos taken 10/14/24 at 1100. New sacral dsg applied. Skin has improved. Debi ALICEAN RN
[2024-10-14] MEDS: cefTRIAXone 1,000 MG in SODIUM CHLORIDE 0.9% 100 ML 200 MG IV (12:56)
[2024-10-14] MEDS: SODIUM CHLORIDE 0.9% 1,000 ML 100 ML IV ×2 (12:57→23:45)
--- NOTE | 2024-10-14 13:37 | DIET.CONS ---
Dietary Consultation Note Admission Date: 10/12/2024 16:27 Assessment: 54y F admitted for failure to thrive referred to nutrition for malnutrition screening. Pt last admitted 08/21/24, since d/c [place] [facility] [place]. Pt presents to hospital with stage 3 sacral ulcerations. Pt with Wernicke-Korsakoff Syndrome r/t alcohol use receiving thiamine therapy per protocol. Pt currently eating with hands, some shakiness. POs 5-10% last evening and this am. Ht: 152.4 cm Wt: 41.594 kg (-8.6% in 2mo, severe) BMI: 17.9 (underweight) UBW: 60-65kg until downtrend began in 2022 Last BM: 10/12/24 (10/12/24 16:31) MNA: 4 Santosh Score: 14 Diet: 10/13/24 Lunch General (Regular) Diet Diet Modifications: Food Texture: Level 7 - Regular Liquid Consistency: Level 0 - Thin Nutrition Percent Meal Consumed pt ate 5%, just a few bites. 10/14/24 08:00 Percent Meal Consumed 10 10/13/24 18:00 Labs: RBC 3.28 X10^6/uL (4.0-5.2) L 10/14/24 08:11 Hgb 9.5 g/dL (12.0-16.0) L 10/14/24 08:11 Hct 28.4 % (36-46) L 10/14/24 08:11 Creatinine 0.62 mg/dL (0.52-1.04) 10/12/24 06:40 Hemoglobin A1c < 4.0 % (4.0-6.0) L 10/12/24 06:40 Lactate 1.2 mmol/L (0.7-2.1) 10/12/24 06:40 Nutrition Diagnosis: Severe Acute Protein Calorie Malnutrition r/t inability to manage self-care aeb 8.6% unintentional weight loss in 2mo (severe), BMI 17.9 (underweight), hospitalist reporting pt severely cachectic, pt unable to get up from bed x2mo with stage 3 sacral pressure sores and Wernicke-Korsakoff Syndrome. Interventions: 1. To support malnourished state while hospitalized, providing patient liberal meal choices in high kcal/high protein diet, finger foods as desired. Can provide ONS Ensure as desired to meet nutrition gaps. 2. To support pressure sores, providing ONS Rudy bid during hospitalization. 3. To support malnourished state upon d/c, recc pt receive close daily meal assistance to ensure pt meeting nutrition needs for nutrition repletion. EER: 1300-1400kcals ( 30-35kcal/kg per PCM), 65-75g PRO (1.4-1.8g/kg per pressure sores) Monitoring/Evaluations: Following for POs, will adjust nutrition plan PRN Electronically Signed by: Gabrielle Myrick 10/14/24 13:37 Clinical Dietitian [address] [id number]
--- NOTE | 2024-10-14 13:37 | OT.IPNOTE ---
Pt still eating lunch.
--- NOTE | 2024-10-14 15:05 | OT.IPNOTE ---
Pt just hoyered back to bed and asleep. TO check on pt tomorrow for OT eval if still appropriate.
[2024-10-14] MEDS: HYDROMORPHONE 0.5 MG INJ IV ×3 (18:40→23:42)
[2024-10-14] MEDS: ATORVASTATIN 20 MG TABLET 80 MG PO (20:35)
[2024-10-14] MEDS: BACLOFEN 10 MG TABLET 20 MG PO (20:35)
[2024-10-14] MEDS: clonazePAM 0.5 MG TABLET PO (23:42)
[2024-10-15 05:55] LABS: Add Manual Diff / Slide Review NO; Basophils Absolute Auto 0 /uL (0-100); Basophils Percent Auto 0.4 % (0-2); Eosinophils Absolute Auto 200 /uL (0-450); Eosinophils Percent Auto 2.2 % (2-4); Hematocrit 22.1 % (36-46); Hemoglobin 7.4 g/dL (12.0-16.0); Lymphocytes Absolute Auto 1800 /uL (1100-4500); Lymphocytes Percent Auto 24.2 % (25-40); Mean Corpuscular HGB Conc 33.5 % (30-36); Mean Corpuscular Hemoglobin 28.8 PG (26-34); Monocytes Absolute Auto 500 /uL (0-900); Neutrophils Absolute Auto 5100 /uL (1500-7000); Neutrophils Percent Auto 67.2 % (50-75); Platelet Count 148 X10^3/uL (150-400); Red Blood Cell Count 2.57 X10^6/uL (4.0-5.2); Red Cell Distribution Width 16.3 % (11.6-14.8); White Blood Cell Count 7.6 X10^3/uL (4.5-11.0)
[2024-10-15 06:07] LABS: Alanine Aminotransferase 15 IU/L (<35); Albumin 1.5 g/dL (3.5-5.0); Albumin Globulin Ratio 0.7 (1.0-2.8); Alkaline Phosphatase 95 U/L (38-126); Aspartate Aminotransferase 28 IU/L (14-36); BUN Creatinine Ratio 17.5 (6-22); Bilirubin Total 0.3 mg/dL (0.2-1.3); Blood Urea Nitrogen 11 mg/dL (7-17); Calcium 7.2 mg/dL (8.4-10.2); Carbon Dioxide 18 mmol/L (22-32); Chloride 118 mmol/L (98-107); Estimated Glomerular Filt Rate > 60 mL/min (>60); Globulin 2.3 g/dL (1.7-4.1); Glucose 70 mg/dL (70-99); HEMOLYSIS < 15 (0-50); Sodium 137 mmol/L (137-145); Total Protein 3.8 g/dL (6.3-8.2)
[2024-10-15] MEDS: LEVOTHYROXINE 75 MCG TABLET PO (06:20)
[2024-10-15 06:22] LABS: Potassium 2.6 mmol/L (3.4-5.1)
[2024-10-15] MEDS: HYDROMORPHONE 0.5 MG INJ IV ×3 (06:24→17:44)
[2024-10-15 07:00] VITALS: BP 97/61; PULSE 94; RESP 18; TEMP 36.8; O2SAT 99
[2024-10-15] MEDS: POTASSIUM CHLORIDE 20 MEQ TAB 40 MEQ PO ×2 (08:44→12:34)
[2024-10-15] MEDS: ASPIRIN EC 81 MG TABLET PO (08:45)
[2024-10-15] MEDS: estradioL 1 MG TABLET 0.5 MG PO (08:45)
[2024-10-15] MEDS: MULTIVITAMIN 1 TABLET 1 TAB PO (08:46)
[2024-10-15] MEDS: FOLIC ACID 1 MG TABLET PO (08:46)
[2024-10-15] MEDS: NICOTINE 14 PATCH 14 MG TOP (08:47)
[2024-10-15] MEDS: THIAMINE 100 MG TABLET PO (08:47)
[2024-10-15] MEDS: PROGESTERONE, MICRONIZED 100 MG CAPSULE PO (08:47)
[2024-10-15] MEDS: ESCITALOPRAM 10 MG TABLET 20 MG PO (08:48)
[2024-10-15] MEDS: clonazePAM 0.5 MG TABLET PO ×2 (08:48→21:21)
[2024-10-15] MEDS: SODIUM CHLORIDE 0.9% FLUSH 10 ML IV ×2 (09:00→21:31)
[2024-10-15] MEDS: SODIUM CHLORIDE 0.9% 1,000 ML 100 ML IV (09:03)
[2024-10-15] MEDS: cefTRIAXone 1,000 MG in SODIUM CHLORIDE 0.9% 100 ML 200 MG IV (12:33)
--- NOTE | 2024-10-15 14:06 | CM.DPC ---
Addendum entered by ROMARIO Steele 10/15/24 14:39: ADD: SW called pt's [employer] [facility] CM Mckenzie at [phone] and she confirms that she is contracted through [employer] to assist with medical transitions and Mckenzie can assist with getting auth for SNF or HH but unable to assist or have access with LTC applications or have access to Medicaid information regarding programs or benefits that pt might have. Mckenzie aware of the challenges to SNF rehab and discharging home barriers. Mckenzie will be off work on Saturday but back in the office on 10/20. BF Original Note: DCP Cont: Per MD, pt's Sodium and H&H lower today and started on Thiamine for possible Wernickes Korsakoff tx to see if pt has improvements in her mentation and alertness, not yet medically stable to discharge. Per PT/OT, pt heavy care needs and 2-3PA max. SW attempted to meet bedside with pt and she was able to answer questions appropriately but could not stay awake but was able to confirm she and her spouse own their [employer] home but they have no monthly income themselves only her mother's social security monthly income around $1500. Pt could not recall their exact monthly mortgage cost that they pay. Pt states she does have access to their bank account but too drowsy to provide accurate info on money in their account. They also own a vehicle. SW assisted with completing the information for the Medicaid LTC application as pt confirms she remains agreeable with SW attempting SNF rehab and LTC application for likely need of placement for her care needs if she doesn't have significant improvement. Pt states she is agreeable with her spouse Vick Fritz and her mother Bhumika being her representatives for Medicaid LTC application. SW attempted to call Vick and Bhumika via their cell phones multiple times today towards gathering additional financial information for the LTC application and Bhumika answered once but could not hear SW and pt states this is typical of her mother's hearing deficits. Vick never answered the phone and pt does not have her cell phone in the hospital. Expedited HCS form completed but not faxed yet. SW made additional referrals for SNF rehab while waiting for LTC application process: [facility]- declines [facility]- reviewing [facility]- reviewing [facility]- cannot do one time auth for [place] [facility] for SNF rehab, but they have open LTC beds once application approved. [facility]- reviewing. ROMARIO Steele
[2024-10-15] MEDS: SENNOSIDES 8.6 MG TABLET PO (15:34)
[2024-10-15] MEDS: DOCUSATE 100 MG CAPSULE PO ×2 (15:34→21:30)
[2024-10-15] MEDS: BACLOFEN 10 MG TABLET 20 MG PO ×3 (15:34→21:29)
--- NOTE | 2024-10-15 15:39 | PT.IPTN ---
Current Diagnoses Cerebral infarction, unspecified (10/12/24) Physical Therapy Treatment Note M2 PT-IP Current Condition Start: 10/12/24 09:30 Freq: Status: Active Protocol: Document 10/12/24 10:47 MB (Rec: 10/12/24 11:25 MB Desktop) Physical Therapy Current Condition Current Condition Evaluation Date 10/12/24 Treatment Diagnosis Adm with weakness M3 PT-IP Subjective Start: 10/12/24 09:30 Freq: Status: Active Protocol: Document 10/15/24 15:39 DLM (Rec: 10/15/24 17:20 DLM Desktop) Subjective Physical Therapy Visit Type Type Treatment Note Visit Start Time 15:15 Visit Stop Time 15:39 Notes 24 minutes Coordinated treatment with OT for pt safety Number of SALES/MARKETING Visits 0 Physical Therapy Visit Comments Patient Comments she was fearful of falling sitting edge of bed Therapy Pain Assessment Pain When Pain Assessed During Mobility Pain Present Pain Present Pain Reported Location Sacrum Description Aching,Tender,With Movement Pain Management Techniques Re-positioning M4 PT-IP Mobility and Gait Start: 10/12/24 09:30 Freq: Status: Active Protocol: Document 10/15/24 15:39 DLM (Rec: 10/15/24 17:20 DLM Desktop) PT-Bed Mobility Assessment Rolling Level of Assist Standby Assistance Supine to Sit Supine to Sit Minimal Assistance,1 Person Assistance,Head of Bed Elevated,Bedrails Scooting Scooting to Edge of Bed Maximum Assistance PT-Transfer Assessment Sit to and From Stand Sit to and from Stand Maximum Assistance,2 Person Assistance,Use of Upper Extremities Transfers Transfer Destination Bed,Bedside Commode Transfer Technique Squat Pivot Transfer Ability Level of Assist Maximum Assistance,2 Person Assistance,Use of Upper Extremities Comments Mobility Comments pt transferred to bedside commode for toileting then transferred back to bed, bed is tall for her which makes transfers back onto the bed more challenging since her knees are flexed in standing Pt shows good use of bed rails to roll in bed today. Gait Assessment Comments Gait Comments unable PT-Balance Assessment Sitting Balance and Reactions Static Sitting Balance Ability Poor Dynamic Sitting Balance Ability Poor Standing Balance and Reactions Static Standing Balance Ability Poor Dynamic Standing Balance Ability Poor Device Used none Comments Other Balance Tests/Deviations/Treatment sitting edge of bed, pt able : to support her trunk but wants to hold therapist at all times due to her fear of falling off edge of bed. 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 Impaired Comments Pt does not clearly state full history when asked Gross Range of Motion Upper Extremity ROM Assessment Bilaterally Impaired Lower Extremity ROM Assessment Bilaterally Impaired Strength Comments Strength Comments Pt does not tolerate formal range and MMT today d/t pain and she has global muscle atrophy, cachexia Coordination Assessment Assessment Coordination Comments NT Sensation Assessment Comments Sensation Comments NT M6 PT-IP Treatment Start: 10/12/24 09:30 Freq: Status: Active Protocol: Document 10/15/24 15:39 DLM (Rec: 10/15/24 17:20 DLM Desktop) Physical Therapy Treatment Education Education Provided Safety Other Treatments Other Treatment Performed pt left lying on left side for pressure relief with pillows for positioning M7 PT-IP Assessment and Plan Start: 10/12/24 09:30 Freq: Status: Active Protocol: Document 10/15/24 15:39 DLM (Rec: 10/15/24 17:20 DLM Desktop) PT Summary Assessment and Plan Summary Impairments Pain,ROM,Strength,Balance, Coordination,Sensation,Tone, Cognition,Bed Mobility, Transfers,Gait,Activity Tolerance Progress Towards Goals Slow Progress due to Medical Issues,Slow Progress due to Activity Tolerance Assessment Summary She is alert today and is able to participate in activity. She is fearful of falling sitting edge of bed and needed a lot of reassurance. Pt keeps both knees flexed in standing and showed poor weight bearing on her LE's for standing and transfers. She needs two assist for her transfers due to her high fall risk. Continue to recommend SNF rehab at discharge. Goals Bed Mobility Goal Minimal Assistance Transfer Goal Minimal Assistance,Front Wheeled Walker Gait Goal Minimal Assistance,Front Wheel Walker Gait Distance 25 Other Goals Squat pivot transfer bed-chair with mod assist of one person Days to Meet Goals 10 Frequency of Treatment Frequency Of Treatment Once a Day Treatment Plan Physical Therapy Treatment Plan Bed Mobility Training,Transfer Training,Gait Training, Therapeutic Exercise,Balance Retraining,Discharge Planning, Neuromuscular Re-ed, Coordination Retraining Precautions Other Precautions fall risk Recommendations To Nursing Amount of Assist Needed 2 Person Assist,Mechanical Lift Discharge Recommendations PT Discharge Recommendations SNF Rehab Transportation Needs at Discharge Wheelchair/Cabulance,Stretcher /Ambulance - PT assist 2
--- NOTE | 2024-10-15 15:47 | OT.IP.EVAL ---
Current Diagnoses Cerebral infarction, unspecified (10/12/24) Past Medical History (Last Reviewed 10/14/24 @ 08:01 by Pino Santiago MD) Allergy (Unknown) Amenorrhea Anxiety (1989) Chronic back pain (Unknown) Chronic venous insufficiency Foot pain (2003) GERD (gastroesophageal reflux disease) (Unknown) Heavy menses (Unknown) IBS (irritable bowel syndrome) (1985) Neuropathy Obstructive sleep apnea (Unknown) Painful menstrual periods (Unknown) Restless leg syndrome (2014) Shoulder pain (Unknown) Vertigo (1979) Surgical History (Last Reviewed 10/14/24 @ 08:01 by Pino Santiago MD) History of removal of laparoscopic gastric banding device (2014) Hx of laparoscopic gastric banding (2011) Hx of sinus surgery (2011) 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) Occupational Therapy Inpatient Evaluation/Re-Eval M1 PT/OT-IP Prior Functional Status Start: 10/12/24 09:30 Freq: Status: Active Protocol: Document 10/12/24 10:47 MB (Rec: 10/12/24 11:25 MB Desktop) Medical Review Prior Functional Status Medical History Reviewed Yes Communication Unsure baseline diet. Pt is cachectic with multiple skin breakdown areas on sacrum and some wounds on right upper back that per notes, may cigarette samuel Mobility and Gait Pt reports she has been mostly bed bound since adm last month and that she has only been OOB 3 times Activities of Daily Living and IADL's Pt states that or mom would bring her food, unsure about hygiene and hair is very matted and so PT assesses that mobility and self-care have been very low Social History Household Members spouse,family Living Arrangements House Number of Floors (Floors) One Floor Number of Stairs To Enter/Railing? Several platform steps to enter Home Environment Standard Height Toilet,Tub/ Shower Home Equipment Front Wheel Walker,Quad Cane, Manual Wheelchair,Shower Seat with Backrest,Hand Held Shower Additional Social History Comment Not worker M1 PT/OT-IP Prior Functional Status Start: 10/13/24 14:37 Freq: NEEDED Status: Active Protocol: Document 10/15/24 15:52 [facility] (Rec: 10/15/24 16:26 [facility] Desktop) Medical Review Prior Functional Status Medical History Reviewed Yes Communication Unsure baseline diet. Pt is cachectic with multiple skin breakdown areas on sacrum and some wounds on right upper back that per notes, may cigarette samuel Mobility and Gait Pt reports she has been mostly bed bound since adm last month and that she has only been OOB 3 times Activities of Daily Living and IADL's Pt states that or mom would bring her food, unsure about hygiene and hair is very matted and so PT assesses that mobility and self-care have been very low On OT eval pt states able to eat after food given and able to wash and brush her teeth prior. Pt states did not use the bathroom and just had her brief changed in bed. Social History Household Members spouse,family Living Arrangements House Number of Floors (Floors) One Floor Number of Stairs To Enter/Railing? Several platform steps to enter Home Environment Standard Height Toilet,Tub/ Shower Home Equipment Front Wheel Walker,Quad Cane, Manual Wheelchair,Shower Seat with Backrest,Hand Held Shower M2 OT-IP Current Condition Start: 10/13/24 14:37 Freq: Status: Active Protocol: Document 10/15/24 15:52 [facility] (Rec: 10/15/24 16:26 [facility] Desktop) Occupational Therapy Current Condition Current Condition Evaluation Date 10/15/24 Treatment Diagnosis CVA, failure to thrive Diagnosis Onset Date 10/12/24 M3 OT- IP Subjective and Pain Start: 10/13/24 14:37 Freq: Status: Active Protocol: Document 10/15/24 15:52 [facility] (Rec: 10/15/24 16:26 [facility] Desktop) OT- Subjective Occupational Therapy Visit Type Type Initial Evaluation Visit Start Time 15:00 Visit Stop Time 15:47 Occupational Therapy Visit Comments Patient Comments Pt uncomfortable in bed and agreed to get up to use the BSC. PT present for OT eval. Patient/Caregiver Goals To be able to use her back, frontagain. Able to clarify and pt meaning to be able to use her feet again. OT Pain Assessment Pain When Pain Assessed At Rest Pain Present Pain Present Pain Reported Location Sacrum Pain Behaviors Facial Grimacing,Holding Area, Moaning M4 OT- IP ADL's Start: 10/13/24 14:37 Freq: Status: Active Protocol: Document 10/15/24 15:52 [facility] (Rec: 10/15/24 16:26 [facility] Desktop) OT [id number] Comments OT Self-Feeding Comments Pt having to had cup held in front of her as pt tends to tremor while to hold the cup. Noted pt coughing after sip of ice tea with lemon and pt states coughed due to the drink was too sour. Tried water and no coughing noted for the pt. Pt states has had gastric sleeve in the past and states eats very slower. vc to sit upright while drinking the liquid and tucking her chin. OT ADL-Grooming General Evaluation Grooming Ability Standby Assistance,Maximum Assistance Areas Needing Assistance Face Washing Comments OT Grooming Comments Pt able to wash her face after set-up of wash cloth. Pt's hair very matted and pt not wanting to have any assist to help her hair at this time. OT ADL-Oral Care Comments Oral Care Comments Pt refused. OT ADL-Dressing General Eval Lower Body Dressing Ability Maximum Assistance Areas Needing Assistance Socks Comments OT Dressing Comments Pt while in bed able to re- orientate her left sock correctly and needing assist with her right sock. OT ADL-Toileting General Evaluation Toileting Ability Total Assistance Areas Needing Assistance Manage Clothing,Perform Perineal Hygiene Comments OT Toileting Comments Total A x2 to transfer to the BSC as having make sure her legs do not buckle and pt not able to straighten her legs and other person assist to guide her hips to the BSC. At this time pending now alert pt is at times best to use reyna lift. OT ADL-Bathing Comments OT Bathing Comments Sponge bath more appropriate, pt refused at this time. M5 OT- IP IADL's Start: 10/13/24 14:37 Freq: Status: Active Protocol: Document 10/15/24 15:52 [facility] (Rec: 10/15/24 16:26 [facility] Desktop) OT-Instrumental Activities of Daily Living Deficits IADL Deficits Identified Deficits Home Safety Awareness Awareness of Need for Assistance at Home Good Awareness Medication Management Medication Management Caregiver Administers Money Management Money Management Caregiver Provides Assistance Meal Preparation Meal Preparation Caregiver Provides Assist Manager Document Control Manager Document Control Caregiver Provides Assist M6 OT- IP Functional Cognition Start: 10/13/24 14:37 Freq: Status: Active Protocol: Document 10/15/24 15:52 [facility] (Rec: 10/15/24 16:26 [facility] Desktop) Cognitive Factors Limiting Selfcare Function Cognitive Ability Level of Alertness Alert,Confusional State Patient Orientation Name,Situation Attention Span Ability Capable of Focused Attention, Capable of Sustained Attention ,Unable to Sustain Attention Ability to Follow Commands Able to Follow One Step Commands with Increased Time, Able to Follow One Step Commands with Repetition Memory Description Short Term Impaired Cognitive Comments Cognitive Assessment Comments Pt needing lots of reassurance and encouragement to participate in therapy. Pt is agreeable to get up to the [facility] . Pt not wanting to talk to her as he called during OT eval. Pt however when asked when he could call back, pt grabbed the phone and told him to call back in 6 days and hung up. AT the end of the session when asked, pt did not recall talking to her . Pt is very fearful of falling. OT- Vision and Hearing OT- Hearing Assessment OT- Hearing Assessment WFL OT- Vision Assessment Vision Assessment Comments Pt able to read the clock. M7 OT- IP Mobility and Balance Start: 10/13/24 14:37 Freq: Status: Active Protocol: Document 10/15/24 15:52 [facility] (Rec: 10/15/24 16:26 [facility] Desktop) OT- Bed Mobility Assessment Rolling Level of Assistance Standby Assistance,Bedrails Supine to Sit Supine to Sit Assist Moderate Assistance,Bedrails Sit to Supine Sit to Supine Assist Standby Assistance,Bedrails Scooting Scooting to Edge of Bed Maximum Assistance OT-Transfer Assessment Transfers Transfer Ability Total Assistance,2 Person Assistance Technique Transfer Destination Bed,Chair Transfer Technique Squat Pivot Devices Transfer Assistive Devices None,Gait Belt Comments Mobility Comments Pt able to rolling the bed with increased time and use of bed rails. MODA to help get upright and MAXA with heavy use of green pad to scoot her forwards to the edge of the bed. OT- Balance Assessment Sitting Balance and Reactions Static Sitting Balance Ability Fair Standing Balance and Reactions Static Standing Balance Ability Poor Dynamic Standing Balance Ability Poor Comments Other Balance Tests/Deviations/Treatment After assist to get her to the : edge of the bed. Pt able to sit with her arms on the bed to support her on her own. M8 OT- IP Objective Assessments Start: 10/13/24 14:37 Freq: Status: Active Protocol: Document 10/15/24 15:52 [facility] (Rec: 10/15/24 16:26 [facility] Desktop) OT Gross Range of Motion Upper Extremity Range of Motion ROM Impairments Grossly WFL OT Strength Upper Extremity Strength Assessment Bilaterally Impaired Comments Strength Comments BUE 4-/5 to 4/5 OT- Coordination Assessment Comments Coordination Comments NT M9 OT- IP Assessment and Plan Start: 10/13/24 14:37 Freq: Status: Active Protocol: Document 10/15/24 15:52 [facility] (Rec: 10/15/24 16:26 [facility] Desktop) OT Summary Assessment and Plan Potential Rehabilitation Potential Fair Analytic Complexity at Evaluation High Summary OT Impairments Pain,Range of Motion,Strength, Balance,Coordination, Functional Cognition, Functional Mobility,Self- Feeding,Grooming,Dressing, Toileting,Bathing,Toilet Transfers,Shower Transfers, Activity Tolerance Progress Towards Goals Slow Progress due to Pain,Slow Progress due to Medical Issues,Slow Progress due to Activity Tolerance,Slow Progress due to Cognition Assessment Summary Pt high complexity and main barriers are pain, decreased strength, endurance, and activity tolerance and at this time total assist for transfer but able to do bed mobility with MODA to get out of bed. Per chart pt has been bed bound for months. Pt would benefit from trial of SNF to hopefully be able to maximize independence with ADL and mobility needs. Pt at least will benefit from increase strength, core strength to possibly be able to do a more functional transfer or be independent to mobilize in a . Otherwise pt will probably need assisted care. Goals Self-Feeding Goal Independent Grooming Goal Independent Dressing Goal Minimal Assistance Toileting Goal Minimal Assistance Bathing Goal Moderate Assistance Toilet Transfer Goal Moderate Assistance Shower Transfer Goal Moderate Assistance Days to Meet Goals 40 Frequency of Treatment Other frequency 5x/week Treatment Plan OT Treatment Plan ADL Training,Functional Cognition Training,Functional Mobility,Therapeutic Exercises ,Patient/Family Education, Discharge Planning Other Treatment Recommendations and Next Oral care with SBA while Treatment Focus seated on the edge of bed. Discharge Recommendations OT Discharge Recommendations SNF Rehab,LTAC Transportation Needs at Discharge Wheelchair/Cabulance
--- NOTE | 2024-10-15 16:19 | PC.NURSE ---
Pt reported 4-5/10 pain but only has hydromorphone ordered. Informed MD Polk. MD Polk ordered to start with baclofen 20mg PO first. No new orders. Provided pt baclofen 20mg PO. Checked ~30 min later, pt now reporting 7/10 pain. Administered prescribed dilaudid. Pt resting comfortably.
--- NOTE | 2024-10-15 16:23 | P.PN_ITS ---
Subjective Subjective Interval history: Chief complaint: Failure to thrive, unable to ambulate stigmata suggestive of Wernicke-Korsakoff syndrome, vermal degeneration and hallucinosis History of present illness: 54-year-old female with a long history of alcohol use chronic anxiety previous admissions for accidental overdosing combining benzodiazepines with alcohol who has been bed-bound and chair or chair bound for the past month unable to care for self. By report since her discharge September 15 she has not been able to get out of bed she has multiple sores over her sacrum Workup in the emergency department notable for MRI demonstrating small punctate CVA and frontal deep white matter and possibly right parietal cortex CTA of head and neck unremarkable echocardiogram from previous admission is also unremarkable CT of the cervical spine is unremarkable as well White count 11.8 73% neutrophils hemoglobin 11.8 platelets 277 Sodium 133 potassium 4 BUN creatinine 21 and 0.6 AST 59 ALT 25 CK 272 troponin below reference range TSH 7.19 T4 6.5 Chest x-ray is clear Hospital course: 10/13: Seemingly more cogent today however too weak to sit up in bed even for physical therapy [id number] is less dysmetric today 10/14: Subjective: She is weak but denies hallucinations. She can not stand up. She is trying to eat her breakfast by picking up her eggs and fruit with her hands. She does have some degree of shakes. 10/15: Mildly tremulous, complains of diffuse pain today, unable to really further describe but not chest pain or plapitations, no shortness of breath. Exam Vital Signs (past 8 hours): Oxygen Delivery Method Room Air Oxygen Flow Rate 0 Narrative Exam Narrative: NAD, alert and oriented. Fluent speech. She was extremely cachectic and appears chronically ill. Lungs are clear, normal rate and effort. Heart is regular, no murmur gallop or rub. Abdomen is soft, non distended. Extremities are free of edema. Neuro exam: She was shaky, moving arms and legs. She was oriented to place and time. She denies hallucinations. Objective Labs 10/15/24 05:17 10/15/24 05:17 Labs: Laboratory Results - last 24 hr 10/15/24 05:17 WBC 7.6 RBC 2.57 L Hgb 7.4 L Hct 22.1 L MCV 86.0 MCH 28.8 MCHC 33.5 RDW 16.3 H Plt Count 148 L Neut % (Auto) 67.2 Lymph % (Auto) 24.2 L Callahan % (Auto) 6.0 Eos % (Auto) 2.2 Baso % (Auto) 0.4 Neut # (Auto) 5100 Lymph # (Auto) 1800 Callahan # (Auto) 500 Eos # (Auto) 200 Baso # (Auto) 0 Sodium 137 Potassium 2.6 L* D Chloride 118 H Carbon Dioxide 18 L BUN 11 Creatinine 0.63 Estimated GFR > 60 BUN/Creatinine Ratio 17.5 Glucose 70 Calcium 7.2 L Total Bilirubin 0.3 AST 28 ALT 15 Alkaline Phosphatase 95 D Total Protein 3.8 L Albumin 1.5 L Globulin 2.3 Albumin/Globulin Ratio 0.7 L PFSH Medical History Amenorrhea Neuropathy Chronic venous insufficiency Obstructive sleep apnea (Unknown) GERD (gastroesophageal reflux disease) (Unknown) Allergy (Unknown) Restless leg syndrome (2014) Anxiety (1989) Shoulder pain (Unknown) Foot pain (2003) Chronic back pain (Unknown) Vertigo (1979) Painful menstrual periods (Unknown) Heavy menses (Unknown) IBS (irritable bowel syndrome) (1985) Surgical History 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) Hx of sinus surgery (2011) History of removal of laparoscopic gastric banding device (2014) Hx of laparoscopic gastric banding (2011) Family History Grandmother Cancer Mental health problem Mother Age: 76 Mental health disorder Sister Age: 58 Heart disease Hypertension High cholesterol Mental health problem Asthma COPD (chronic obstructive pulmonary disease) Social History household members: spouse and family Smoking Status: Current every day smoker Tobacco: How many years used: 10 second hand exposure: No alcohol intake: current substance use type: does not use Assessment & Plan Assessment & Plan narrative: Acute and subacute CVA punctate infarct right frontal white matter and possible punctate left parietal * Aspirin, high-intensity statin * Patient has recent echocardiogram no indication to repeat * Continue PT/OT and assess for placement options. 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 Started gabapentin. 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 - continue to follow with BMP. Acute on chronic aneima - possibly dilutional, Hg to 7.4. No signs or symptoms of active bleeding. - continue to follow, stop IV fluids. PLAN: -will continue to use clonazepam as needed for anxiety. We will continue to encourage oral intake and monitor her strength. Discharge planning we will be very difficult given her ongoing struggles with alcohol use disorder. We will continue her medical treatment for cerebrovascular disease and high dose thiamine per protocol. - repleted potassium of 2.6 today, continue to monitor with decreased PO intake DVT prophylaxis with subcutaneous heparin Code status: * Full code Time-Based Coding :: [TOTAL MINUTES] spent with patient and on the chart (including review of chart, obtaining history, exam, reviewing outside data, placing orders, documenting exam and treatment plan, and counseling patient) on [DATE]. Quality VTE Deep Vein Thrombosis/Pulmonary Embolism Present on Admission: No
[2024-10-15 18:26] LABS: BUN Creatinine Ratio 17.5 (6-22); Blood Urea Nitrogen 10 mg/dL (7-17); Calcium 7.7 mg/dL (8.4-10.2); Carbon Dioxide 19 mmol/L (22-32); Chloride 117 mmol/L (98-107); Estimated Glomerular Filt Rate > 60 mL/min (>60); Glucose 76 mg/dL (70-99); HEMOLYSIS < 15 (0-50); Potassium 3.4 mmol/L (3.4-5.1); Sodium 138 mmol/L (137-145)
[2024-10-15 19:00] VITALS: O2SAT 99
[2024-10-15 21:00] VITALS: BP 94/65; PULSE 94; RESP 14; TEMP 37.1; O2SAT 99
[2024-10-15] MEDS: GABAPENTIN 300 MG CAPSULE PO (21:28)
[2024-10-15] MEDS: ATORVASTATIN 20 MG TABLET 80 MG PO (21:28)
[2024-10-15] MEDS: HEPARIN 5,000 UNIT/ML VIAL 5000 UNIT SUBCUT (21:30)
--- NOTE | 2024-10-16 04:38 | PC.NURSE ---
Father Yesica visited patient this evening. Reported patient is not samaritan, however wants to be affiliated as Anabaptist and be baptised. He explained that it is a lengthy process and if it becomes urgent to notify him. [phone].
[2024-10-16 06:06] LABS: Add Manual Diff / Slide Review NO; Basophils Absolute Auto 0 /uL (0-100); Basophils Percent Auto 0.5 % (0-2); Eosinophils Absolute Auto 100 /uL (0-450); Hematocrit 23.2 % (36-46); Hemoglobin 7.7 g/dL (12.0-16.0); Lymphocytes Absolute Auto 2300 /uL (1100-4500); Lymphocytes Percent Auto 31.4 % (25-40); Mean Corpuscular HGB Conc 33.1 % (30-36); Mean Corpuscular Hemoglobin 28.6 PG (26-34); Mean Corpuscular Volume 86.4 fL (80-100); Monocytes Absolute Auto 500 /uL (0-900); Monocytes Percent Auto 6.8 % (3-14); Neutrophils Absolute Auto 4400 /uL (1500-7000); Neutrophils Percent Auto 59.3 % (50-75); Platelet Count 173 X10^3/uL (150-400); Red Blood Cell Count 2.68 X10^6/uL (4.0-5.2); Red Cell Distribution Width 16.5 % (11.6-14.8); White Blood Cell Count 7.5 X10^3/uL (4.5-11.0)
[2024-10-16 06:10] LABS: Blood Urea Nitrogen 9 mg/dL (7-17); Calcium 7.7 mg/dL (8.4-10.2); Carbon Dioxide 21 mmol/L (22-32); Chloride 116 mmol/L (98-107); Estimated Glomerular Filt Rate > 60 mL/min (>60); Glucose 65 mg/dL (70-99); HEMOLYSIS < 15 (0-50); Potassium 3.1 mmol/L (3.4-5.1); Sodium 137 mmol/L (137-145)
[2024-10-16 06:11] LABS: Magnesium 1.6 mg/dL (1.6-2.3)
[2024-10-16 07:00] VITALS: O2SAT 100
[2024-10-16] MEDS: estradioL 1 MG TABLET 0.5 MG PO (09:00)
[2024-10-16] MEDS: PROGESTERONE, MICRONIZED 100 MG CAPSULE PO (09:25)
[2024-10-16] MEDS: BACLOFEN 10 MG TABLET 20 MG PO (09:26)
[2024-10-16] MEDS: ESCITALOPRAM 10 MG TABLET 20 MG PO (09:26)
[2024-10-16] MEDS: THIAMINE 100 MG TABLET PO (09:27)
[2024-10-16] MEDS: DOCUSATE 100 MG CAPSULE PO ×2 (09:27→21:21)
[2024-10-16] MEDS: MULTIVITAMIN 1 TABLET 1 TAB PO (09:27)
[2024-10-16] MEDS: GABAPENTIN 300 MG CAPSULE PO ×2 (09:28→21:21)
[2024-10-16] MEDS: ASPIRIN EC 81 MG TABLET PO (09:28)
[2024-10-16] MEDS: FOLIC ACID 1 MG TABLET PO (09:28)
[2024-10-16] MEDS: clonazePAM 0.5 MG TABLET PO ×2 (09:43→23:34)
[2024-10-16 10:00] VITALS: BP 111/74; PULSE 101; RESP 13; TEMP 36.6; O2SAT 98
[2024-10-16] MEDS: SODIUM CHLORIDE 0.9% FLUSH 10 ML IV ×2 (10:03→21:21)
[2024-10-16] MEDS: MAGNESIUM CHLORIDE 64 MG TABLET 128 MG PO (10:04)
[2024-10-16] MEDS: POTASSIUM CHLORIDE 20 MEQ TAB 40 MEQ PO (10:04)
--- NOTE | 2024-10-16 11:18 | PT.IPTN ---
Current Diagnoses Cerebral infarction, unspecified (10/12/24) Physical Therapy Treatment Note M2 PT-IP Current Condition Start: 10/12/24 09:30 Freq: Status: Active Protocol: Document 10/12/24 10:47 MB (Rec: 10/12/24 11:25 MB Desktop) Physical Therapy Current Condition Current Condition Evaluation Date 10/12/24 Treatment Diagnosis Adm with weakness M3 PT-IP Subjective Start: 10/12/24 09:30 Freq: Status: Active Protocol: Document 10/16/24 11:18 [facility] (Rec: 10/16/24 12:54 AB [id number]) Subjective Physical Therapy Visit Type Type Treatment Note Visit Start Time 11:18 Visit Stop Time 11:55 Notes pt seen with OT due to pt medical complexities needing 2 person to provide safe assistance and interventions Number of BISQUE KILN DRAWER Visits 0 M4 PT-IP Mobility and Gait Start: 10/12/24 09:30 Freq: Status: Active Protocol: Document 10/16/24 11:18 [facility] (Rec: 10/16/24 12:54 AB [id number]) PT-Bed Mobility Assessment Rolling Level of Assist Maximal Assistance,1 Person Assistance Supine to Sit Supine to Sit Maximum Assistance,Total Assistance,2 Person Assistance ,Head of Bed Elevated,Bedrails Sit to Supine Sit to Supine Total Assistance,2 Person Assistance Scooting Scooting to Edge of Bed Dependent PT-Transfer Assessment Comments Mobility Comments pt in bed and is drowsy needing constant cues to participate. supine to sit max A x 2 to total A x 2. pt requiring max A x 1-2 for sitting balance. presents with increase posterior trunk lean pt inconsistent with following directions and requires encouragement to try to move. pt able to sit on EOB for 10-15 min. nurse also in room. Assisted pt with gown change. pt able to sit on EOb with SBa to CGA towards end of sitting activity but only for ~ 8 sec. assisted pt back to bed. total A x 2 for scooting towards HOB and total Ax 2 for sit to supine. positioned pt in bed. call light and table placed within reach. PT-Balance Assessment Sitting Balance and Reactions Static Sitting Balance Ability Poor Dynamic Sitting Balance Ability Poor 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,Long-Term Impaired Comments Pt does not clearly state full history when asked Gross Range of Motion Upper Extremity ROM Assessment Bilaterally Impaired Lower Extremity ROM Assessment Bilaterally Impaired Strength Comments Strength Comments Pt does not tolerate formal range and MMT today d/t pain and she has global muscle atrophy, cachexia Coordination Assessment Assessment Coordination Comments NT Sensation Assessment Comments Sensation Comments NT M6 PT-IP Treatment Start: 10/12/24 09:30 Freq: Status: Active Protocol: Document 10/16/24 11:18 AB (Rec: 10/16/24 12:54 AB [id number]) Physical Therapy Treatment Education Education Provided Safety M7 PT-IP Assessment and Plan Start: 10/12/24 09:30 Freq: Status: Active Protocol: Document 10/16/24 11:18 [facility] (Rec: 10/16/24 12:54 AB [id number]) PT Summary Assessment and Plan Potential Rehabilitation Potential Poor Summary Impairments Pain,ROM,Strength,Balance, Coordination,Sensation,Tone, Cognition,Bed Mobility, Transfers,Gait,Activity Tolerance Progress Towards Goals Slow Progress due to Medical Issues,Slow Progress due to Activity Tolerance,Slow Progress - Other Assessment Summary pt continues to require max A x 2 to total A x 2 with mobility and needing increase motivation to initiate and participate during PT session. will continue PT at this time to assess progress but if pt does not improve with participation or progress, PT might have to d/c. pt will require LTC placement. will continue to assess. Goals Bed Mobility Goal Minimal Assistance Transfer Goal Minimal Assistance,Front Wheeled Walker Gait Goal Minimal Assistance,Front Wheel Walker Gait Distance 25 Other Goals Squat pivot transfer bed-chair with mod assist of one person Days to Meet Goals 10 Frequency of Treatment Frequency Of Treatment Once a Day Treatment Plan Physical Therapy Treatment Plan Bed Mobility Training,Transfer Training,Gait Training, Therapeutic Exercise,Balance Retraining,Discharge Planning, Neuromuscular Re-ed, Coordination Retraining Precautions Other Precautions fall Recommendations To Nursing Amount of Assist Needed Mechanical Lift Discharge Recommendations PT Discharge Recommendations SNF Rehab Other Discharge Recommendations SNF vs LTC Transportation Needs at Discharge Wheelchair/Cabulance,Stretcher /Ambulance - PT assist 2
--- NOTE | 2024-10-16 11:20 | OT.IP.TRT ---
Current Diagnoses Cerebral infarction, unspecified (10/12/24) Occupational Therapy Treatment Note M2 OT-IP Current Condition Start: 10/13/24 14:37 Freq: Status: Active Protocol: Document 10/15/24 15:52 [facility] (Rec: 10/15/24 16:26 [facility] Desktop) Occupational Therapy Current Condition Current Condition Evaluation Date 10/15/24 Treatment Diagnosis CVA, failure to thrive Diagnosis Onset Date 10/12/24 M3 OT- IP Subjective and Pain Start: 10/13/24 14:37 Freq: Status: Active Protocol: Document 10/16/24 12:05 [facility] (Rec: 10/16/24 12:22 [facility] Desktop) OT- Subjective Occupational Therapy Visit Type Type Treatment Note Visit Start Time 11:20 Visit Stop Time 12:00 Occupational Therapy Visit Comments Patient Comments Pt states willing to get up, PT and nursing present to assist. OT Pain Assessment Pain When Pain Assessed During Mobility Pain Present Pain Present Pain Reported Location Sacrum Pain Behaviors Facial Grimacing,Moaning M4 OT- IP ADL's Start: 10/13/24 14:37 Freq: Status: Active Protocol: Document 10/16/24 12:05 [facility] (Rec: 10/16/24 12:22 [facility] Desktop) OT [id number] Comments OT Self-Feeding Comments Pt per nursing has not been able to eat much, even though having assist. Pt however when drink placed in front of her lips able to take several sips and no coughing noted. OT ADL-Grooming Comments OT Grooming Comments Pt refused. OT ADL-Dressing General Eval Lower Body Dressing Ability Total Assistance Areas Needing Assistance Socks Comments OT Dressing Comments Pt not wanting to try to robin her socks while in supine and needing hand over hand assist to help lift her feet up so total assist for her socks. OT ADL-Bathing Comments OT Bathing Comments Sponge bath more appropriate.Pt needing MAXAx1 for her balance while nurse and PT assisting with gown and hygiene needs. M5 OT- IP IADL's Start: 10/13/24 14:37 Freq: Status: Active Protocol: Document 10/15/24 15:52 [facility] (Rec: 10/15/24 16:26 [facility] Desktop) OT-Instrumental Activities of Daily Living Deficits IADL Deficits Identified Deficits Home Safety Awareness Awareness of Need for Assistance at Home Good Awareness Medication Management Medication Management Caregiver Administers Money Management Money Management Caregiver Provides Assistance Meal Preparation Meal Preparation Caregiver Provides Assist Hand Ii Blocker Hand Ii Blocker Caregiver Provides Assist M6 OT- IP Functional Cognition Start: 10/13/24 14:37 Freq: Status: Active Protocol: Document 10/16/24 12:05 [facility] (Rec: 10/16/24 12:22 [facility] Desktop) Cognitive Factors Limiting Selfcare Function Cognitive Ability Level of Alertness Confusional State,Drowsy Patient Orientation Name Attention Span Ability Unable to Focus,Unable to Sustain Attention Ability to Follow Commands Able to Follow One Step Commands with Increased Time, Able to Follow One Step Commands with Repetition Memory Description Short Term Impaired Cognitive Comments Cognitive Assessment Comments Pt today much more drowsy and not able to stay awake for therapy today. Pt needing constant cues to try to keep her eyes open. Pt talking in low soft voice and hard to understand. Pt did state, Am I going to . Encouraged pt to participate and especially try to eat. Nursing notified. M7 OT- IP Mobility and Balance Start: 10/13/24 14:37 Freq: Status: Active Protocol: Document 10/16/24 12:05 [facility] (Rec: 10/16/24 12:22 [facility] Desktop) OT- Bed Mobility Assessment Supine to Sit Supine to Sit Assist Total Assistance,2 Person Assistance Sit to Supine Sit to Supine Assist Total Assistance,2 Person Assistance Scooting Scooting to Edge of Bed Total Assistance,2 Person Assistance OT-Transfer Assessment Comments Mobility Comments Pt dependent for all needs today for mobility and not able to actively participate much today as pt is very drowsy. OT- Balance Assessment Sitting Balance and Reactions Static Sitting Balance Ability Poor Dynamic Sitting Balance Ability Poor Comments Other Balance Tests/Deviations/Treatment Pt needing MAX 1-2A fir balance to sit to : the edge of the bed. Pt not able to maintain any balance today. Pt not able to react when leaning posteriorly or has difficulty to able to assist herself even with assist from therapists M8 OT- IP Objective Assessments Start: 10/13/24 14:37 Freq: Status: Active Protocol: Document 10/15/24 15:52 [facility] (Rec: 10/15/24 16:26 [facility] Desktop) OT Gross Range of Motion Upper Extremity Range of Motion ROM Impairments Grossly WFL OT Strength Upper Extremity Strength Assessment Bilaterally Impaired Comments Strength Comments BUE 4-/5 to 4/5 OT- Coordination Assessment Comments Coordination Comments NT M9 OT- IP Assessment and Plan Start: 10/13/24 14:37 Freq: Status: Active Protocol: Document 10/16/24 12:05 [facility] (Rec: 10/16/24 12:22 [facility] Desktop) OT Summary Assessment and Plan Potential Rehabilitation Potential Fair Analytic Complexity at Evaluation High Summary OT Impairments Pain,Range of Motion,Strength, Balance,Coordination, Functional Cognition, Functional Mobility,Self- Feeding,Grooming,Dressing, Toileting,Bathing,Toilet Transfers,Shower Transfers, Activity Tolerance Progress Towards Goals Slow Progress due to Pain,Slow Progress due to Medical Issues,Slow Progress due to Activity Tolerance,Slow Progress due to Cognition Assessment Summary Pt much more drowsy and having difficulty to actively participate in therapy today. Pt needing two person assist for all bed mobility needs and MAXA1-2 for balance while seated on the edge of the bed to change out her gown and sponge off some. Pending progress, alertness, and willingness- pt may benefit from trial of SNF , however seemingly more appropriate for LTC. Goals Self-Feeding Goal Independent Grooming Goal Independent Dressing Goal Minimal Assistance Toileting Goal Minimal Assistance Bathing Goal Moderate Assistance Toilet Transfer Goal Moderate Assistance Shower Transfer Goal Moderate Assistance Days to Meet Goals 40 Frequency of Treatment Other frequency 5x/week Treatment Plan OT Treatment Plan ADL Training,Functional Cognition Training,Functional Mobility,Therapeutic Exercises ,Patient/Family Education, Discharge Planning Other Treatment Recommendations and Next Oral care with SBA while Treatment Focus seated on the edge of bed. Discharge Recommendations OT Discharge Recommendations SNF Rehab,LTAC Transportation Needs at Discharge Wheelchair/Cabulance,Stretcher /Ambulance
[2024-10-16] MEDS: cefTRIAXone 1,000 MG in SODIUM CHLORIDE 0.9% 100 ML 200 MG IV (12:27)
--- NOTE | 2024-10-16 13:45 | PC.NURSE ---
Addendum entered by Starr Puri R.N. 10/16/24 14:51: Pt PIV past 96 hours, per policy this RN attempted to insert new PIV 2x but was unsuccessful. MAGAZINE EDITOR Ryan and RN Michelle attempted USG PIV, but were unsuccessful, as pt did not tolerated procedure. Leaving current PIV active for now d/t prescribed IV route medications (see MAR). Addendum entered by Starr Puri R.N. 10/16/24 13:51: Replaced Mepilex foam dressing. Skin appears to be less red and less excoriated than on arrival to unit. Bridged pt, ankle booties applied. Plan of care continues. Original Note: 1329: No recorded urine output since 1800 last night. Changed brief; dry. Bladder scan says 326. Pt says she does not feel like she has to void. She is drinking PO fluids intermittently. Encouraged pt to drink more fluids and provided preferred beverages. Informed MD oPlk. No new orders at this time.
--- NOTE | 2024-10-16 14:48 | CM.DPNOTE ---
DCP Continued: Reviewed EMR and team rounds for pt?s medical status. Per hospitalist, pt depression is exacerbating her lack of motivation; psych medication trials pending. Per OT, patient is a total assist today and short term memory is affected. PT/OT still recommending SNF Rehab and/or [facility]. [facility] DCP DCP spoke with pt , Lam Washington, who was able to give financial and vehicle information to complete [facility] Medicaid Application. DCP sent completed [facility] LTC application and Home and Community Intake and Referral forms via fax to fax # listed on both forms. DCP also sent both forms to Geraldine Dave, Manager [employer]per[employer] Worker- [facility] Intake & [facility] Disability Programs, via secure email. SNF Rehab DCP DCP recieved a call from [facility] and they have declined referral at this time as they feel patient is not mobile enough for a swing bed. DCP called [facility] and spoke with Electronic Component Processor Tej, it is reported Admissions staff is not in today and Electronic Component Processor will follow up on referral. DCP called [facility] and left a voice message on Admissions cellphone to inquire about referral send on 10/15 via secure email. Plan: SNF Rehab pending acceptance vs. [facility] placement pending [facility] LTC application process. CM Team will continue to follow for coordination of discharge plans. MALENA Arnett
[2024-10-16] MEDS: POTASSIUM CHLORIDE IN WATER 10 MEQ/100 ML PIGGYBACK 100 MEQ IV ×2 (17:07→18:18)
[2024-10-16] MEDS: ONDANSETRON 4 MG/2 ML INJ IV (17:41)
--- NOTE | 2024-10-16 17:46 | P.PN_ITS ---
Subjective Subjective Interval history: Chief complaint: Failure to thrive, unable to ambulate stigmata suggestive of Wernicke-Korsakoff syndrome, vermal degeneration and hallucinosis History of present illness: 54-year-old female with a long history of alcohol use chronic anxiety previous admissions for accidental overdosing combining benzodiazepines with alcohol who has been bed-bound and chair or chair bound for the past month unable to care for self. By report since her discharge September 15 she has not been able to get out of bed she has multiple sores over her sacrum Workup in the emergency department notable for MRI demonstrating small punctate CVA and frontal deep white matter and possibly right parietal cortex CTA of head and neck unremarkable echocardiogram from previous admission is also unremarkable CT of the cervical spine is unremarkable as well White count 11.8 73% neutrophils hemoglobin 11.8 platelets 277 Sodium 133 potassium 4 BUN creatinine 21 and 0.6 AST 59 ALT 25 CK 272 troponin below reference range TSH 7.19 T4 6.5 Chest x-ray is clear Hospital course: 10/13: Seemingly more cogent today however too weak to sit up in bed even for physical therapy [id number] is less dysmetric today 10/14: Subjective: She is weak but denies hallucinations. She can not stand up. She is trying to eat her breakfast by picking up her eggs and fruit with her hands. She does have some degree of shakes. 10/15: Mildly tremulous, complains of diffuse pain today, unable to really further describe but not chest pain or plapitations, no shortness of breath. 10/16: Less tremulous, continues to have diffuse pain all over. Now with very minimal PO intake and low UOP per nursing staff today. Exam Vital Signs (past 8 hours): - 10/16/24 10:00 Temperature 98 F Pulse Rate 101 H Respiratory Rate 13 Blood Pressure 111/74 Pulse Oximetry 98 Oxygen Flow Rate 0 Oxygen Delivery Method Room Air Oxygen Flow Rate 0 Narrative Exam Narrative: NAD, alert and and oriented but soft speech and flat affect. She was extremely cachectic and appears chronically ill. Lungs are clear, normal rate and effort. Heart is regular, no murmur gallop or rub. Abdomen is soft, non distended. Extremities are free of edema. Objective Labs 10/16/24 05:41 10/16/24 05:41 Labs: Laboratory Results - last 24 hr 10/15/24 10/16/24 18:03 05:41 WBC 7.5 RBC 2.68 L Hgb 7.7 L Hct 23.2 L MCV 86.4 MCH 28.6 MCHC 33.1 RDW 16.5 H Plt Count 173 Neut % (Auto) 59.3 Lymph % (Auto) 31.4 [place] % (Auto) 6.8 Eos % (Auto) 2.0 Baso % (Auto) 0.5 Neut # (Auto) 4400 Lymph # (Auto) 2300 [place] # (Auto) 500 Eos # (Auto) 100 Baso # (Auto) 0 Sodium 138 137 Potassium 3.4 3.1 L Chloride 117 H 116 H Carbon Dioxide 19 L 21 L BUN 10 9 Creatinine 0.57 0.53 Estimated GFR > 60 > 60 BUN/Creatinine Ratio 17.5 17.0 Glucose 76 65 L Calcium 7.7 L 7.7 L Magnesium 1.6 PFSH Medical History Amenorrhea Neuropathy Chronic venous insufficiency Obstructive sleep apnea (Unknown) GERD (gastroesophageal reflux disease) (Unknown) Allergy (Unknown) Restless leg syndrome (2014) Anxiety (1989) Shoulder pain (Unknown) Foot pain (2003) Chronic back pain (Unknown) Vertigo (1979) Painful menstrual periods (Unknown) Heavy menses (Unknown) IBS (irritable bowel syndrome) (1985) Surgical History 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) Hx of sinus surgery (2011) History of removal of laparoscopic gastric banding device (2014) Hx of laparoscopic gastric banding (2011) Family History Grandmother Cancer Mental health problem Mother Age: 76 Mental health disorder Sister Age: 58 Heart disease Hypertension High cholesterol Mental health problem Asthma COPD (chronic obstructive pulmonary disease) Social History household members: spouse and family Smoking Status: Current every day smoker Tobacco: How many years used: 10 second hand exposure: No alcohol intake: current substance use type: does not use Assessment & Plan Assessment & Plan narrative: Acute and subacute CVA punctate infarct right frontal white matter and possible punctate left parietal * Aspirin, high-intensity statin * Patient has recent echocardiogram no indication to repeat * Continue PT/OT and assess for placement options. * worsening pain but appears slightly better today after additional opiates added yesterday and started gabapentin. Wernicke-Korsakoff syndrome: * Continue thiamine PO. 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 Lots of psycho-social issues leading to this as well. Hypokalemia, not present on admission - repleted today, 2.6. - continue to follow with BMP. Acute on chronic aneima - possibly dilutional, Hg to 7.4 but stable today at 7.7. No signs or symptoms of active bleeding. - continue to follow, stopped IV fluids. PLAN: -will continue to use clonazepam as needed for anxiety. We will continue to encourage oral intake and monitor her strength. Discharge planning we will be very difficult given her ongoing struggles with alcohol use disorder. We will continue her medical treatment for cerebrovascular disease and high dose thiamine per protocol. - repleted potassium of 2.6 today, continue to monitor with decreased PO intake DVT prophylaxis with subcutaneous heparin Code status: * Full code Time-Based Coding :: [TOTAL MINUTES] spent with patient and on the chart (including review of chart, obtaining history, exam, reviewing outside data, placing orders, documenting exam and treatment plan, and counseling patient) on [DATE]. Quality VTE Deep Vein Thrombosis/Pulmonary Embolism Present on Admission: No
[2024-10-16] MEDS: HYDROMORPHONE 0.5 MG INJ IV (18:44)
[2024-10-16 20:04] VITALS: BP 113/68; PULSE 100; RESP 20; TEMP 36.7; O2SAT 94
[2024-10-16 20:30] VITALS: O2SAT 95
[2024-10-16] MEDS: HEPARIN 5,000 UNIT/ML VIAL 5000 UNIT SUBCUT (21:21)
[2024-10-16] MEDS: ATORVASTATIN 20 MG TABLET 80 MG PO (21:21)
--- NOTE | 2024-10-16 23:31 | PC.NURSE ---
Patient has been adamant that she wants no male staff in the room. This RN reassured patient that will not be happening tonight. Patient talking to self in room, but sounded like was trying to get staff attention, this RN went into the room to assess patient needs, patient wanted her ice tea, This rn assisted with that. Patient later called front end specialist via phone room, this RN asked patient if she was feeling anxous, patient said yes. Then patient proceeded to ask were you the one that came in earlier? you were a bitch. Coordinator RN made aware.
[2024-10-17 06:06] LABS: Add Manual Diff / Slide Review NO; Basophils Absolute Auto 0 /uL (0-100); Basophils Percent Auto 0.5 % (0-2); Eosinophils Absolute Auto 200 /uL (0-450); Eosinophils Percent Auto 2.3 % (2-4); Hematocrit 24.3 % (36-46); Hemoglobin 8.1 g/dL (12.0-16.0); Lymphocytes Absolute Auto 1900 /uL (1100-4500); Lymphocytes Percent Auto 25.3 % (25-40); Mean Corpuscular HGB Conc 33.3 % (30-36); Mean Corpuscular Hemoglobin 28.6 PG (26-34); Mean Corpuscular Volume 85.9 fL (80-100); Monocytes Absolute Auto 400 /uL (0-900); Monocytes Percent Auto 5.5 % (3-14); Neutrophils Absolute Auto 4900 /uL (1500-7000); Neutrophils Percent Auto 66.4 % (50-75); Platelet Count 186 X10^3/uL (150-400); Red Blood Cell Count 2.82 X10^6/uL (4.0-5.2); Red Cell Distribution Width 16.6 % (11.6-14.8); White Blood Cell Count 7.4 X10^3/uL (4.5-11.0)
[2024-10-17 06:18] LABS: Blood Urea Nitrogen 8 mg/dL (7-17); Calcium 7.6 mg/dL (8.4-10.2); Carbon Dioxide 17 mmol/L (22-32); Chloride 116 mmol/L (98-107); Estimated Glomerular Filt Rate > 60 mL/min (>60); Glucose 65 mg/dL (70-99); HEMOLYSIS < 15 (0-50); Magnesium 1.6 mg/dL (1.6-2.3); Potassium 3.5 mmol/L (3.4-5.1); Sodium 135 mmol/L (137-145)
--- NOTE | 2024-10-17 06:18 | PC.NURSE ---
Patient stated she wanted her and mom(mainly) to visit her today. This RN spoke to Lam on the phone, and made him aware of patients requests. Lam stated that he and patients mom did not sleep well tonight. Patients was slurring words and stated he would be coming today but did not give a time. Patient became tearful saying i know he is drunk, i dont want him coming here drunk. This RN advised patient to not call her today as it visibly upset her, patient agreeable to this.
[2024-10-17 07:00] VITALS: O2SAT 96
[2024-10-17 08:00] VITALS: BP 116/75; PULSE 110; RESP 17; TEMP 37; O2SAT 98
[2024-10-17] MEDS: ONDANSETRON 4 MG/2 ML INJ IV (09:34)
[2024-10-17] MEDS: BACLOFEN 10 MG TABLET 20 MG PO ×2 (09:35→20:11)
[2024-10-17] MEDS: NICOTINE 14 PATCH 14 MG TOP (09:35)
[2024-10-17] MEDS: ASPIRIN EC 81 MG TABLET PO (09:35)
[2024-10-17] MEDS: clonazePAM 0.5 MG TABLET PO (09:35)
[2024-10-17] MEDS: PROGESTERONE, MICRONIZED 100 MG CAPSULE PO (09:35)
[2024-10-17] MEDS: PROPRANOLOL 10 MG TABLET 20 MG PO (09:35)
[2024-10-17] MEDS: estradioL 1 MG TABLET 0.5 MG PO (09:36)
[2024-10-17] MEDS: MULTIVITAMIN 1 TABLET 1 TAB PO (09:36)
[2024-10-17] MEDS: GABAPENTIN 300 MG CAPSULE PO ×2 (09:36→20:11)
[2024-10-17] MEDS: HEPARIN 5,000 UNIT/ML VIAL 5000 UNIT SUBCUT ×2 (09:36→20:11)
[2024-10-17] MEDS: THIAMINE 100 MG TABLET PO (09:36)
[2024-10-17] MEDS: POTASSIUM CHLORIDE 20 MEQ TAB 40 MEQ PO (09:37)
[2024-10-17] MEDS: MAGNESIUM CHLORIDE 64 MG TABLET 128 MG PO (09:37)
[2024-10-17] MEDS: SODIUM CHLORIDE 0.9% FLUSH 10 ML IV ×2 (09:37→20:12)
[2024-10-17] MEDS: FOLIC ACID 1 MG TABLET PO (09:38)
[2024-10-17] MEDS: ESCITALOPRAM 10 MG TABLET 20 MG PO (09:38)
[2024-10-17] MEDS: HYDROMORPHONE 2 MG TABLET PO ×2 (11:34→21:12)
[2024-10-17] MEDS: cefTRIAXone 1,000 MG in SODIUM CHLORIDE 0.9% 100 ML 200 MG IV (11:34)
[2024-10-17] MEDS: HALOPERIDOL 5 MG/ML VIAL 2 MG IV (11:37)
--- NOTE | 2024-10-17 11:44 | PT-IP ANOTE ---
checked on pt this morning and refused PT. checked back on pt after a few hours and hospitalist and nurse in room with pt.
--- NOTE | 2024-10-17 13:47 | CM.DPC ---
DCP Cont: Per MD, pt with large amount of emesis and per RN needing Haldol and medication to calm her as she was tearful and upset upon hearing spouse is in the ED along with her mother. Per PT, pt declined to work with therapy today. SW was going to attempt to meet bedside with pt and discuss need to work with therapies if SNF insurance auth to be attempted and discuss if SNF and if pt overqualified for Medicaid LTC (due to owning their house) what is patient's discharge plan/preference but pt too drowsy and medicated to have goal directed discussion at this time. JUAN[facility] called [facility] and their corporate safety coordinator Helen on vacation until 10/20 after the holiday and their Muck Hauler Tej [phone] covering for admissions while Helen on vacation. SW called [facility] and left msg to inquire about their review of the referral. ROMARIO Steele
--- NOTE | 2024-10-17 14:27 | PT-IP ANOTE ---
checked back on pt this afternoon and pt asleep. attempted to wake pt up but unsucessful. nurse stated that pt was given halidol and dilaudid a few hours ago.
--- NOTE | 2024-10-17 14:31 | P.PN_ITS ---
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 Patient complains of pain in her back and left arm. She is lying in a position that has her neck bent the left as well as her weight on top of her left arm. She states that she is requiring staff to feed her. She feels they are feeding her too quickly and she subsequently vomited undigested food this morning. She did receive Zofran this morning after the emesis.. RN notes that she has been having anxiety. She did receive clonazepam which was not entirely effective and is now going to receive haloperidol. Exam Vital Signs (past 8 hours): - 10/17/24 07:00 10/17/24 07:35 10/17/24 08:00 Temperature 98.6 F Pulse Rate 110 H Respiratory Rate 17 Blood Pressure 116/75 Pulse Oximetry 96 98 Oxygen Delivery Method Room Air Room Air Oxygen Flow Rate 0 Oxygen Delivery Method Room Air Oxygen Flow Rate 0 Narrative Exam Narrative: GEN: Middle-aged female who appears older than physiologic age, Alert and oriented x 1-2, anxious and uncomfortable appearing HEENT:NC, Face symmetric CHEST: Respiratory excursions symmetric, CTAB CV: RRR, no M/R/G ABD: Soft, NT/ND, BT present in all 4 quadrants, no organomegaly or masses EXTR: warm, well perfused, no C/C/E SKIN: warm and dry, no rash NEURO: Alert and oriented x 1-2, nonfocal Objective Labs 10/17/24 05:50 10/17/24 05:50 Labs: Laboratory Results - last 24 hr 10/17/24 05:50 WBC 7.4 RBC 2.82 L Hgb 8.1 L Hct 24.3 L MCV 85.9 MCH 28.6 MCHC 33.3 RDW 16.6 H Plt Count 186 Neut % (Auto) 66.4 Lymph % (Auto) 25.3 [place] % (Auto) 5.5 Eos % (Auto) 2.3 Baso % (Auto) 0.5 Neut # (Auto) 4900 Lymph # (Auto) 1900 [place] # (Auto) 400 Eos # (Auto) 200 Baso # (Auto) 0 Sodium 135 L Potassium 3.5 Chloride 116 H Carbon Dioxide 17 L BUN 8 Creatinine 0.47 L Estimated GFR > 60 BUN/Creatinine Ratio 17.0 Glucose 65 L Calcium 7.6 L Magnesium 1.6 PFSH Medical History Amenorrhea Neuropathy Chronic venous insufficiency Obstructive sleep apnea (Unknown) GERD (gastroesophageal reflux disease) (Unknown) Allergy (Unknown) Restless leg syndrome (2014) Anxiety (1989) Shoulder pain (Unknown) Foot pain (2003) Chronic back pain (Unknown) Vertigo (1979) Painful menstrual periods (Unknown) Heavy menses (Unknown) IBS (irritable bowel syndrome) (1985) Surgical History 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) Hx of sinus surgery (2011) History of removal of laparoscopic gastric banding device (2014) Hx of laparoscopic gastric banding (2011) Family History Grandmother Cancer Mental health problem Mother Age: 76 Mental health disorder Sister Age: 58 Heart disease Hypertension High cholesterol Mental health problem Asthma COPD (chronic obstructive pulmonary disease) Social History household members: spouse and family Smoking Status: Current every day smoker Tobacco: How many years used: 10 second hand exposure: No alcohol intake: current substance use type: does not use Assessment & Plan Assessment & Plan narrative: 1. Acute and subacute right frontal and possible left parietal punctate infarcts Continue high-intensity statin therapy, aspirin. Await possible rehab placement. 2. 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 While she is able to communicate and provide some cogent history, it does appear she has some confabulating per the previous day's notes. Will continue to monitor. 3. 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 Will continue close monitoring 4. Alcohol withdrawal delirium No further evidence of withdrawal noted. 5. Benzodiazepine/baclofen dependence Continuing on her home doses of medications. Once her mental status is as clear as it will become, would be prudent to look at a slow wean over a number of weeks. 6. Peripheral neuropathy Continues vitamin-B supplementation 7. Failure to thrive/debility She is on a citalopram for depression. 8. Hypokalemia Improved. Potassium level is 3.5 today. 9. Acute on chronic anemia Hemoglobin is stable Code status Full Prophylaxis Heparin Disposition Pending placement Time-Based Coding :: [TOTAL MINUTES] spent with patient and on the chart (including review of chart, obtaining history, exam, reviewing outside data, placing orders, documenting exam and treatment plan, and counseling patient) on [DATE]. Quality VTE Deep Vein Thrombosis/Pulmonary Embolism Present on Admission: No
[2024-10-17 19:00] VITALS: BP 128/86; PULSE 74; RESP 19; TEMP 37; O2SAT 96
[2024-10-17] MEDS: ATORVASTATIN 20 MG TABLET 80 MG PO (20:11)
[2024-10-18] MEDS: HALOPERIDOL 5 MG/ML VIAL 2 MG IV (01:18)
--- NOTE | 2024-10-18 05:08 | PC.NURSE ---
Patient calm & cooperative at start of shift, alert & oriented to self, place, & month/year. Confused of situation. Ate small bites of dinner with assistance. Reported back pain, medicated as ordered. Has bilateral upper arm weakness. Patient started to become confused overnight, having hallucinations of people in her room and yelling. Resistant to care from staff, swatting staff members away when attempting to provide care. IV Haldol given as ordered d/t patient agitation from hallucinations. Patient resting in bed currently, continuing to shout get out, you are not allowed in my home. Fall precautions in place. Plan of care ongoing.
[2024-10-18 07:00] VITALS: O2SAT 93
[2024-10-18 09:34] LABS: Add Manual Diff / Slide Review NO; Basophils Absolute Auto 100 /uL (0-100); Basophils Percent Auto 0.9 % (0-2); Eosinophils Absolute Auto 300 /uL (0-450); Eosinophils Percent Auto 3.3 % (2-4); Hematocrit 26.4 % (36-46); Hemoglobin 8.5 g/dL (12.0-16.0); Lymphocytes Absolute Auto 1800 /uL (1100-4500); Lymphocytes Percent Auto 19.8 % (25-40); Mean Corpuscular HGB Conc 32.4 % (30-36); Mean Corpuscular Hemoglobin 28.5 PG (26-34); Mean Corpuscular Volume 87.9 fL (80-100); Monocytes Absolute Auto 700 /uL (0-900); Monocytes Percent Auto 7.5 % (3-14); Neutrophils Absolute Auto 6200 /uL (1500-7000); Neutrophils Percent Auto 68.5 % (50-75); Platelet Count 187 X10^3/uL (150-400); Red Cell Distribution Width 16.9 % (11.6-14.8)
--- NOTE | 2024-10-18 09:34 | PT-IP ANOTE ---
PT checks in on pt who is alert and PT asks pt if she could participate with mobility. Pt states she does not feel like it. When asked if she has pain, she denies pain and when asked again why she might not feel like therapy or mobility, but states that she just doesn't want to do it. Encouraged pt that PT will check back next date.
[2024-10-18] MEDS: ASPIRIN EC 81 MG TABLET PO (09:48)
[2024-10-18] MEDS: FOLIC ACID 1 MG TABLET PO (09:48)
[2024-10-18] MEDS: ESCITALOPRAM 10 MG TABLET 20 MG PO (09:48)
[2024-10-18] MEDS: PROGESTERONE, MICRONIZED 100 MG CAPSULE PO (09:48)
[2024-10-18] MEDS: MULTIVITAMIN 1 TABLET 1 TAB PO (09:48)
[2024-10-18] MEDS: THIAMINE 100 MG TABLET PO (09:48)
[2024-10-18] MEDS: HEPARIN 5,000 UNIT/ML VIAL 5000 UNIT SUBCUT ×2 (09:48→20:45)
[2024-10-18] MEDS: GABAPENTIN 300 MG CAPSULE PO ×2 (09:48→20:45)
[2024-10-18] MEDS: SODIUM CHLORIDE 0.9% FLUSH 10 ML IV ×2 (09:49→20:45)
[2024-10-18] MEDS: estradioL 1 MG TABLET 0.5 MG PO (09:49)
[2024-10-18 09:53] LABS: BUN Creatinine Ratio 13.2 (6-22); Blood Urea Nitrogen 7 mg/dL (7-17); Calcium 7.9 mg/dL (8.4-10.2); Carbon Dioxide 19 mmol/L (22-32); Chloride 113 mmol/L (98-107); Estimated Glomerular Filt Rate > 60 mL/min (>60); Glucose 54 mg/dL (70-99); HEMOLYSIS 53 (0-50); Magnesium 1.6 mg/dL (1.6-2.3); Potassium 3.6 mmol/L (3.4-5.1); Sodium 134 mmol/L (137-145)
[2024-10-18 11:00] VITALS: BP 92/67; PULSE 91; RESP 15; TEMP 36.8; O2SAT 98
--- NOTE | 2024-10-18 12:58 | P.PN_ITS ---
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 Patient is seen sitting up, getting ready to eat her lunch. She notes she may need help eating, but is going to try to eat on her own. She would like to try to go see her today who was in the intensive care unit. She states she is feeling better overall today. No nausea or vomiting. She again states if she eats slowly she does not get nauseated. Exam Vital Signs (past 8 hours): - 10/18/24 07:00 10/18/24 11:00 Temperature 98.3 F Pulse Rate 91 H Respiratory Rate 15 Blood Pressure 92/67 Pulse Oximetry 93 98 Oxygen Delivery Method Room Air Oxygen Flow Rate 0 0 Oxygen Delivery Method Room Air Oxygen Flow Rate 0 Narrative Exam Narrative: GEN: Middle-aged female who appears older than physiologic age, Alert and oriented x 2, NAD HEENT:NC, Face symmetric CHEST: Respiratory excursions symmetric, CTAB CV: RRR, no M/R/G ABD: Soft, NT/ND, BT present in all 4 quadrants, no organomegaly or masses EXTR: warm, well perfused, no C/C/E SKIN: warm and dry, no rash NEURO: Alert and oriented x 2, nonfocal Objective Labs 10/18/24 09:15 10/18/24 09:15 Labs: Laboratory Results - last 24 hr 10/18/24 10/18/24 09:15 09:15 WBC 9.0 RBC 3.00 L Hgb 8.5 L Hct 26.4 L MCV 87.9 MCH 28.5 MCHC 32.4 RDW 16.9 H Plt Count 187 Neut % (Auto) 68.5 Lymph % (Auto) 19.8 L [place] % (Auto) 7.5 Eos % (Auto) 3.3 Baso % (Auto) 0.9 Neut # (Auto) 6200 Lymph # (Auto) 1800 [place] # (Auto) 700 Eos # (Auto) 300 Baso # (Auto) 100 Sodium 134 L Potassium 3.6 Chloride 113 H Carbon Dioxide 19 L BUN 7 Creatinine 0.53 Estimated GFR > 60 BUN/Creatinine Ratio 13.2 Glucose 54 L Calcium 7.9 L Magnesium 1.6 Cancelled [facility] Medical History Amenorrhea Neuropathy Chronic venous insufficiency Obstructive sleep apnea (Unknown) GERD (gastroesophageal reflux disease) (Unknown) Allergy (Unknown) Restless leg syndrome (2014) Anxiety (1989) Shoulder pain (Unknown) Foot pain (2003) Chronic back pain (Unknown) Vertigo (1979) Painful menstrual periods (Unknown) Heavy menses (Unknown) IBS (irritable bowel syndrome) (1985) Surgical History 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) Hx of sinus surgery (2011) History of removal of laparoscopic gastric banding device (2014) Hx of laparoscopic gastric banding (2011) Family History Grandmother Cancer Mental health problem Mother Age: 76 Mental health disorder Sister Age: 58 Heart disease Hypertension High cholesterol Mental health problem Asthma COPD (chronic obstructive pulmonary disease) Social History household members: spouse and family Smoking Status: Current every day smoker Tobacco: How many years used: 10 second hand exposure: No alcohol intake: current substance use type: does not use Assessment & Plan Assessment & Plan narrative: 1. Acute and subacute right frontal and possible left parietal punctate infarcts Continue high-intensity statin therapy, aspirin. Await possible rehab placement. 2. 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 She does appear to be communicating today consistent with her previous baseline from last month. We will continue to monitor. 3. 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 Will continue close monitoring 4. Alcohol withdrawal delirium No further evidence of withdrawal noted. Resolved. 5. Benzodiazepine/baclofen dependence Continuing on her home doses of medications. Once her mental status is as clear as it will become, would be prudent to look at a slow wean over a number of weeks. 6. Peripheral neuropathy Continues vitamin-B supplementation 7. Failure to thrive/debility She is on a citalopram for depression. 8. Hypokalemia Resolved 9. Acute on chronic anemia Hemoglobin is stable 10. Hypoglycemia Blood sugars over the last several mornings have ranged from 54 today to 65. Will add a high-protein snack at bedtime. Code status Full Prophylaxis Heparin Disposition Pending placement Time-Based Coding :: [TOTAL MINUTES] spent with patient and on the chart (including review of chart, obtaining history, exam, reviewing outside data, placing orders, documenting exam and treatment plan, and counseling patient) on [DATE]. Quality VTE Deep Vein Thrombosis/Pulmonary Embolism Present on Admission: No
--- NOTE | 2024-10-18 14:34 | CM.DPC ---
Addendum entered by ROMARIO Malone 10/18/24 14:40: add to previous note, per overnight RN note, pt also hallucinating people in her room. see RN note for more SL Original Note: DCP Note TEST GRADER reviewed EMR TEST GRADER travism with [facility] Operations Coordinator Tej ([phone]) to review referral, no response as of 1430. Spouse currently admitted to ICU for concerns re: ETOH withdrawal, mother in ED likely to be social admit due to concerns about safety in the home. review their EMRs as needed for further social barriers to pt returning home safely as needed. per TEST GRADER Cindy and RN, pt hallucinating ants on quesadilla throughout day. When pt able to have appropriate goal oriented conversation/not actively hallucinating, TEST GRADER team to meet with pt and discuss need to work with therapies if SNF insurance auth to be attempted and discuss if SNF and if pt overqualified for Medicaid LTC (due to owning their house) what is patient's discharge plan. P: hopeful for SNF/LTC placement. CM team will continue to follow closely with APS/comm resources/additional family/multidisciplinary team for safe DCP coordination ROMARIO Malone
--- NOTE | 2024-10-18 16:10 | PC.NURSE ---
patient calm and cooperative but is experiencing visual hallucinations there are ants crawling all over the place. Reoriented the patient and hospitalist aware of hallucinations. Call light in reach, bed alarm activated, and door ajar for visualization.
[2024-10-18] MEDS: MAGNESIUM CHLORIDE 64 MG TABLET 128 MG PO (17:27)
[2024-10-18] MEDS: ONDANSETRON 4 MG/2 ML INJ IV (17:27)
[2024-10-18 19:00] VITALS: O2SAT 95
[2024-10-18 20:00] VITALS: BP 126/85; PULSE 90; RESP 19; TEMP 36.1; O2SAT 95
[2024-10-18] MEDS: BACLOFEN 10 MG TABLET 20 MG PO (20:44)
[2024-10-18] MEDS: ATORVASTATIN 20 MG TABLET 80 MG PO (20:44)
[2024-10-18] MEDS: DOCUSATE 100 MG CAPSULE PO (20:45)
[2024-10-18] MEDS: clonazePAM 0.5 MG TABLET PO (20:45)
[2024-10-19] MEDS: BACLOFEN 10 MG TABLET 20 MG PO (05:29)
[2024-10-19] MEDS: LEVOTHYROXINE 75 MCG TABLET PO (05:29)
--- NOTE | 2024-10-19 07:12 | DIET.CONS2 ---
Dietary Inpatient Consultation Note Admission Date: 10/12/2024 16:27 Pt LOS day 6 with increase in POs since admission. Pt with some hallucination of ants crawling on food and yoder. Nsg offers pt ONS throughout day. RD following for PO adequacy. Diet: 10/13/24 Lunch General (Regular) Diet Diet Modifications: Food Texture: Level 7 - Regular Liquid Consistency: Level 0 - Thin Nutrition Percent Meal Consumed 25% 10/18/24 18:00 Percent Meal Consumed 75% 10/17/24 10:00 Electronically Signed by: Gabrielle Myrick 10/19/24 07:12 Clinical Dietitian [address] [id number]
[2024-10-19 07:18] LABS: Add Manual Diff / Slide Review NO; Basophils Absolute Auto 0 /uL (0-100); Basophils Percent Auto 0.4 % (0-2); Eosinophils Absolute Auto 300 /uL (0-450); Eosinophils Percent Auto 3.2 % (2-4); Hematocrit 24.8 % (36-46); Hemoglobin 8.2 g/dL (12.0-16.0); Lymphocytes Absolute Auto 1700 /uL (1100-4500); Lymphocytes Percent Auto 19.7 % (25-40); Mean Corpuscular HGB Conc 33.2 % (30-36); Mean Corpuscular Hemoglobin 28.4 PG (26-34); Mean Corpuscular Volume 85.6 fL (80-100); Monocytes Absolute Auto 600 /uL (0-900); Monocytes Percent Auto 7.5 % (3-14); Neutrophils Absolute Auto 5900 /uL (1500-7000); Neutrophils Percent Auto 69.2 % (50-75); Platelet Count 209 X10^3/uL (150-400); Red Cell Distribution Width 16.8 % (11.6-14.8); White Blood Cell Count 8.6 X10^3/uL (4.5-11.0)
[2024-10-19 07:40] LABS: Blood Urea Nitrogen 6 mg/dL (7-17); Calcium 7.6 mg/dL (8.4-10.2); Carbon Dioxide 20 mmol/L (22-32); Chloride 112 mmol/L (98-107); Estimated Glomerular Filt Rate > 60 mL/min (>60); Glucose 71 mg/dL (70-99); HEMOLYSIS < 15 (0-50); Potassium 3.1 mmol/L (3.4-5.1); Sodium 134 mmol/L (137-145)
[2024-10-19 07:54] LABS: Magnesium 1.7 mg/dL (1.6-2.3)
[2024-10-19 10:00] VITALS: BP 99/70; PULSE 107; RESP 15; TEMP 36.9; O2SAT 98
[2024-10-19] MEDS: HEPARIN 5,000 UNIT/ML VIAL 5000 UNIT SUBCUT ×2 (10:34→21:45)
[2024-10-19] MEDS: polyethylene glycoL 3350 17 GM POWD.PACK PO (10:34)
[2024-10-19] MEDS: SODIUM CHLORIDE 0.9% FLUSH 10 ML IV ×2 (10:37→21:27)
--- NOTE | 2024-10-19 11:10 | OT.IP.TRT ---
Current Diagnoses Cerebral infarction, unspecified (10/12/24) Occupational Therapy Treatment Note M2 OT-IP Current Condition Start: 10/13/24 14:37 Freq: Status: Active Protocol: Document 10/15/24 15:52 [facility] (Rec: 10/15/24 16:26 [facility] Desktop) Occupational Therapy Current Condition Current Condition Evaluation Date 10/15/24 Treatment Diagnosis CVA, failure to thrive Diagnosis Onset Date 10/12/24 M3 OT- IP Subjective and Pain Start: 10/13/24 14:37 Freq: Status: Active Protocol: Document 10/19/24 12:56 [facility] (Rec: 10/19/24 13:05 [facility] Desktop) OT- Subjective Occupational Therapy Visit Type Type Treatment Note Visit Start Time 11:01 Visit Stop Time 11:10 Notes Partial co-treat with P.T. M4 OT- IP ADL's Start: 10/13/24 14:37 Freq: Status: Active Protocol: Document 10/19/24 12:56 [facility] (Rec: 10/19/24 13:05 [facility] Desktop) OT [id number] Comments OT Self-Feeding Comments Pt declines to eat more of her breakfast stating that her stomach is full OT ADL-Grooming Comments OT Grooming Comments pt declined to participate OT ADL-Oral Care Comments Oral Care Comments pt declined to participate OT ADL-Dressing Comments OT Dressing Comments not performed OT ADL-Toileting Comments OT Toileting Comments not performed OT ADL-Bathing Comments OT Bathing Comments not performed M5 OT- IP IADL's Start: 10/13/24 14:37 Freq: Status: Active Protocol: Document 10/15/24 15:52 [facility] (Rec: 10/15/24 16:26 [facility] Desktop) OT-Instrumental Activities of Daily Living Deficits IADL Deficits Identified Deficits Home Safety Awareness Awareness of Need for Assistance at Home Good Awareness Medication Management Medication Management Caregiver Administers Money Management Money Management Caregiver Provides Assistance Meal Preparation Meal Preparation Caregiver Provides Assist Director Of Digital Technology Director Of Digital Technology Caregiver Provides Assist M6 OT- IP Functional Cognition Start: 10/13/24 14:37 Freq: Status: Active Protocol: Document 10/16/24 12:05 [facility] (Rec: 10/16/24 12:22 [facility] Desktop) Cognitive Factors Limiting Selfcare Function Cognitive Ability Level of Alertness Confusional State,Drowsy Patient Orientation Name Attention Span Ability Unable to Focus,Unable to Sustain Attention Ability to Follow Commands Able to Follow One Step Commands with Increased Time, Able to Follow One Step Commands with Repetition Memory Description Short Term Impaired Cognitive Comments Cognitive Assessment Comments Pt today much more drowsy and not able to stay awake for therapy today. Pt needing constant cues to try to keep her eyes open. Pt talking in low soft voice and hard to understand. Pt did state, Am I going to . Encouraged pt to participate and especially try to eat. Nursing notified. M7 OT- IP Mobility and Balance Start: 10/13/24 14:37 Freq: Status: Active Protocol: Document 10/19/24 12:56 [facility] (Rec: 10/19/24 13:05 [facility] Desktop) OT- Bed Mobility Assessment Rolling Level of Assistance Maximum Assistance,1 Person Assistance Supine to Sit Supine to Sit Assist Contact Guard Assistance,1 Person Assistance Sit to Supine Sit to Supine Assist Maximum Assistance,2 Person Assistance Scooting Scooting to Edge of Bed Total Assistance,1 Person Assistance OT-Transfer Assessment Comments Mobility Comments not performed OT- Gait Assessment Comments Gait Ability Comments not performed OT- Balance Assessment Sitting Balance and Reactions Static Sitting Balance Ability Poor Dynamic Sitting Balance Ability Poor M8 OT- IP Objective Assessments Start: 10/13/24 14:37 Freq: Status: Active Protocol: Document 10/15/24 15:52 [facility] (Rec: 10/15/24 16:26 [facility] Desktop) OT Gross Range of Motion Upper Extremity Range of Motion ROM Impairments Grossly WFL OT Strength Upper Extremity Strength Assessment Bilaterally Impaired Comments Strength Comments BUE 4-/5 to 4/5 OT- Coordination Assessment Comments Coordination Comments NT M9 OT- IP Assessment and Plan Start: 10/13/24 14:37 Freq: Status: Active Protocol: Document 10/19/24 12:56 [facility] (Rec: 10/19/24 13:05 [facility] Desktop) OT Summary Assessment and Plan Potential Rehabilitation Potential Fair Analytic Complexity at Evaluation High Summary OT Impairments Pain,Range of Motion,Strength, Balance,Coordination, Functional Cognition, Functional Mobility,Self- Feeding,Grooming,Dressing, Toileting,Bathing,Toilet Transfers,Shower Transfers, Activity Tolerance Progress Towards Goals Slow Progress due to Pain,Slow Progress due to Medical Issues,Slow Progress due to Activity Tolerance,Slow Progress due to Cognition Assessment Summary Pt minimally participatory in todays session but was able to get to the EOB but then had difficulty maintaining sitting balance. No transfer performed. Pt was returned to bed and then put into the sitting position in bed and offered to do ADLs but pt declined all activity. Pt left sitting in bed. Goals Self-Feeding Goal Independent Grooming Goal Independent Dressing Goal Minimal Assistance Toileting Goal Minimal Assistance Bathing Goal Moderate Assistance Toilet Transfer Goal Moderate Assistance Shower Transfer Goal Moderate Assistance Days to Meet Goals 40 Frequency of Treatment Other frequency 5x/week Treatment Plan OT Treatment Plan ADL Training,Functional Cognition Training,Functional Mobility,Therapeutic Exercises ,Patient/Family Education, Discharge Planning Other Treatment Recommendations and Next Oral care with SBA while Treatment Focus seated on the edge of bed. Discharge Recommendations OT Discharge Recommendations SNF Rehab,LTAC Transportation Needs at Discharge Wheelchair/Cabulance,Stretcher /Ambulance
--- NOTE | 2024-10-19 11:23 | PT.IPTN ---
Current Diagnoses Cerebral infarction, unspecified (10/12/24) Physical Therapy Treatment Note M2 PT-IP Current Condition Start: 10/12/24 09:30 Freq: Status: Active Protocol: Document 10/12/24 10:47 [facility] (Rec: 10/12/24 11:25 [facility] Desktop) Physical Therapy Current Condition Current Condition Evaluation Date 10/12/24 Treatment Diagnosis Adm with weakness M3 PT-IP Subjective Start: 10/12/24 09:30 Freq: Status: Active Protocol: Document 10/19/24 10:47 [facility] (Rec: 10/19/24 11:23 [facility] Desktop) Subjective Physical Therapy Visit Type Type Treatment Note Visit Start Time 10:47 Visit Stop Time 11:10 Number of INSTRUCTOR MODELING Visits 0 Physical Therapy Visit Comments Patient Comments Pt is agreeable to try PT, WINDOW SASH INSTALLER in room and getting ready to assist with hygiene with brief . Therapy Pain Assessment Pain When Pain Assessed During Mobility Pain Present Pain Present Pain Reported Location Generalized Scale Used Not rated, appears to be in LE joints M4 PT-IP Mobility and Gait Start: 10/12/24 09:30 Freq: Status: Active Protocol: Document 10/19/24 10:47 [facility] (Rec: 10/19/24 11:23 [facility] Desktop) PT-Bed Mobility Assessment Rolling Level of Assist Maximal Assistance,1 Person Assistance Supine to Sit Supine to Sit Contact Guard Assistance,1 Person Assistance,Head of Bed Elevated,Bedrails Sit to Supine Sit to Supine Total Assistance,2 Person Assistance Scooting Scooting to Edge of Bed Dependent Scooting Up and Down in Bed Dependent PT-Transfer Assessment Comments Mobility Comments PT assists WINDOW SASH INSTALLER and provides cues for pt to reach for rail with rolling right and left to doff brief, perform hygiene, change pad and redon brief and pt with confusion and requiring many cues. To initiating sitting up to EOB to the left, heavy VCs but not tactile assistance, HOB all the way increased, lower bed rail and upper bed rail. Then, pt lets go and leans all the way back and dependent assistance to scoot hips out to EOB with pad and then max A to maintain static sitting balance. +2 dependent to get up to HOB, left in cardiac chair position with OT who had arrived at end of treatment PT-Balance Assessment Sitting Balance and Reactions Static Sitting Balance Ability Poor Dynamic Sitting Balance Ability Poor 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,Human Relations Manager Impaired Comments Pt does not clearly state full history when asked Gross Range of Motion Upper Extremity ROM Assessment Bilaterally Impaired Lower Extremity ROM Assessment Bilaterally Impaired Strength Comments Strength Comments Pt does not tolerate formal range and MMT today d/t pain and she has global muscle atrophy, cachexia Coordination Assessment Assessment Coordination Comments NT Sensation Assessment Comments Sensation Comments NT M6 PT-IP Treatment Start: 10/12/24 09:30 Freq: Status: Active Protocol: Document 10/19/24 10:47 [facility] (Rec: 10/19/24 11:23 MB Desktop) Physical Therapy Treatment Education Education Provided Safety M7 PT-IP Assessment and Plan Start: 10/12/24 09:30 Freq: Status: Active Protocol: Document 10/19/24 10:47 [facility] (Rec: 10/19/24 11:23 MB Desktop) PT Summary Assessment and Plan Potential Rehabilitation Potential Poor Status of Condition at Evaluation Evolving Summary Impairments Pain,ROM,Strength,Balance, Coordination,Sensation,Tone, Cognition,Bed Mobility, Transfers,Gait,Activity Tolerance Progress Towards Goals Slow Progress due to Medical Issues,Slow Progress due to Activity Tolerance,Slow Progress - Other Assessment Summary Pt con't with confusion and she also has decreased participation with PT today. PT attempts to educate pt in goal for SNF to improve mobility and I to see if she is interested and it does not appear that pt is of current mentation to consider this. She will require heavy 24 hour care at d/c. Goals Bed Mobility Goal Minimal Assistance Transfer Goal Minimal Assistance,Front Wheeled Walker Gait Goal Minimal Assistance,Front Wheel Walker Gait Distance 25 Other Goals Squat pivot transfer bed-chair with mod assist of one person Days to Meet Goals 10 Frequency of Treatment Frequency Of Treatment Once a Day Treatment Plan Physical Therapy Treatment Plan Bed Mobility Training,Transfer Training,Gait Training, Therapeutic Exercise,Balance Retraining,Discharge Planning, Neuromuscular Re-ed, Coordination Retraining Precautions Other Precautions fall Recommendations To Nursing Amount of Assist Needed Mechanical Lift Discharge Recommendations Other Discharge Recommendations SNF vs LTC Transportation Needs at Discharge Stretcher/Ambulance - PT assist 2
--- NOTE | 2024-10-19 12:24 | PM.PN.1 ---
Subjective Subjective Interval history: S: She remains very weak. She was encouraged to participate with physical therapy today. She denies any pain concerns, but it was having some visual hallucinations. No tremor. Exam Vital Signs (past 8 hours): - 10/19/24 07:00 10/19/24 10:00 Temperature 98.4 F Pulse Rate 107 H Respiratory Rate 15 Blood Pressure 99/70 Pulse Oximetry 98 Oxygen Delivery Method Room Air Oxygen Flow Rate 0 Oxygen Delivery Method Room Air Oxygen Flow Rate 0 Narrative Exam Narrative: She was somewhat unkempt and cachectic. She appears to be very frail and chronically ill. No tremor. Lungs are clear, normal effort. Heart is regular, without murmur. Abdomen is soft, nontender. There was no edema of the extremities. Objective Labs 10/19/24 07:15 10/19/24 07:15 Labs: Laboratory Results - last 24 hr 10/19/24 07:15 WBC 8.6 RBC 2.90 L Hgb 8.2 L Hct 24.8 L MCV 85.6 MCH 28.4 MCHC 33.2 RDW 16.8 H Plt Count 209 Neut % (Auto) 69.2 Lymph % (Auto) 19.7 L [place] % (Auto) 7.5 Eos % (Auto) 3.2 Baso % (Auto) 0.4 Neut # (Auto) 5900 Lymph # (Auto) 1700 [place] # (Auto) 600 Eos # (Auto) 300 Baso # (Auto) 0 Sodium 134 L Potassium 3.1 L Chloride 112 H Carbon Dioxide 20 L BUN 6 L Creatinine 0.43 L Estimated GFR > 60 BUN/Creatinine Ratio 14.0 Glucose 71 Calcium 7.6 L Magnesium 1.7 PFSH Medical History Amenorrhea Neuropathy Chronic venous insufficiency Obstructive sleep apnea (Unknown) GERD (gastroesophageal reflux disease) (Unknown) Allergy (Unknown) Restless leg syndrome (2014) Anxiety (1989) Shoulder pain (Unknown) Foot pain (2003) Chronic back pain (Unknown) Vertigo (1979) Painful menstrual periods (Unknown) Heavy menses (Unknown) IBS (irritable bowel syndrome) (1985) Surgical History 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) Hx of sinus surgery (2012) History of removal of laparoscopic gastric banding device (2014) Hx of laparoscopic gastric banding (2011) Family History Grandmother Cancer Mental health problem Mother Age: 76 Mental health disorder Sister Age: 58 Heart disease Hypertension High cholesterol Mental health problem Asthma COPD (chronic obstructive pulmonary disease) Social History household members: spouse and family Smoking Status: Current every day smoker Tobacco: How many years used: 10 second hand exposure: No alcohol intake: current substance use type: does not use Assessment & Plan Assessment & Plan narrative: 1. Acute and subacute right frontal and possible left parietal punctate infarcts Continue high-intensity statin therapy, aspirin. Await possible rehab placement. 2. 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 She does appear to be communicating today consistent with her previous baseline from last month. We will continue to monitor. 3. 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 Will continue close monitoring 4. Alcohol withdrawal delirium No further evidence of withdrawal noted. Resolved. 5. Benzodiazepine/baclofen dependence Continuing on her home doses of medications. Once her mental status is as clear as it will become, would be prudent to look at a slow wean over a number of weeks. 6. Peripheral neuropathy Continues vitamin-B supplementation 7. Failure to thrive/debility She is on a citalopram for depression. 8. Hypokalemia Resolved 9. Acute on chronic anemia Hemoglobin is stable 10. Hypoglycemia Blood sugars over the last several mornings have ranged from 54 today to 65. Will add a high-protein snack at bedtime. PLAN: -continue current measures. -encouraged her participate with physical therapy so that we can see if nursing facility rehabilitation would be appropriate. She agrees today. -monitor hallucinations and mental status. Code status Full Prophylaxis Heparin Time-Based Coding :: [TOTAL MINUTES] spent with patient and on the chart (including review of chart, obtaining history, exam, reviewing outside data, placing orders, documenting exam and treatment plan, and counseling patient) on [DATE]. Quality VTE Deep Vein Thrombosis/Pulmonary Embolism Present on Admission: No
--- NOTE | 2024-10-19 12:28 | PC.NURSE ---
Patient is hallucinating this morning, seeing things that are not there. Offered patient her medication after she ate, she states that she needed to wait 20 minutes before and 20 minutes after eating meals to take medication as she hada gastric surgery. This went on for an hour. Offered her two more times to take her meds, and she kept saying that she needed to wait. She seemed pretty alert and oriented when telling this to RN, but other times she is not oriented at all. Medications were not given, as she finally refused them all. is aware. She did ask for pain medication though during this time and then fell asleep. She is not anxious, patient is getting baptized Bahai at this time.
[2024-10-19] MEDS: POTASSIUM CHLORIDE 20 MEQ TAB 40 MEQ PO (15:59)
[2024-10-19] MEDS: clonazePAM 0.5 MG TABLET PO (18:30)
[2024-10-19 20:00] VITALS: BP 108/54; PULSE 117; RESP 17; TEMP 36.7; O2SAT 96
--- NOTE | 2024-10-19 21:15 | EKG_ITS ---
[facility] [address] [place] [address] Test Date: 2024-10-19 Pat Name: Rebekah Washington Department: [facility] Room: 206 Gender: Female Ciaio Lumite Injector: liz : 1970 Requested By: Order Number: [id number] Reading MD: Pino Santiago Measurements Intervals [place] Rate: 122 P: 46 IA: 138 QRS: 28 QRSD: 70 T: 108 QT: 336 QTc: 478 Interpretive Statements Sinus tachycardia Nonspecific ST and T wave abnormality Electronically Signed On 10-20-2024 8:37:54 PDT by Pino Santiago
[2024-10-19] MEDS: SODIUM CHLORIDE 0.9% 1,000 ML 1000 ML IV (21:44)
[2024-10-19 22:20] VITALS: BP 98/67; PULSE 114; RESP 16; TEMP 37.1; O2SAT 98
[2024-10-19 22:23] VITALS: O2SAT 98
[2024-10-19 22:39] VITALS: BP 103/78; PULSE 114; RESP 16; O2SAT 97
[2024-10-19 22:40] LABS: Troponin I 0.035 ng/mL (0.01-0.034)
[2024-10-20] VITALS (8 sets, daily range): BP systolic 83–99; BP diastolic 58–72; PULSE 112–119; RESP 16–21; TEMP 36.6–36.8; O2SAT 96–100
[2024-10-20 01:28] LABS: Troponin I 0.034 ng/mL (0.01-0.034)
[2024-10-20] MEDS: SODIUM CHLORIDE 0.9% 1,000 ML 200 ML IV (01:55)
--- NOTE | 2024-10-20 01:56 | PC.NURSE ---
brainer: Patient reported chest pain at start of shift, when asked to specify pain/sensation, patient states I don't know, it just hurts. Patient appears fatigued. Called RT for EKG, cont tele placed. Vital signs documented: Tachycardic in 110's. Blood pressure soft. SpO2 98% on RA. Afebrile. Notified MD of findings, IVF ordered and infusing. Troponin drawn x2, trending down (MD notified). Patient remains alert to voice and is responsive to questions. Denies current chest pain.
[2024-10-20 06:35] LABS: Hematocrit 29.7 % (36-46); Mean Corpuscular HGB Conc 33.6 % (30-36); Mean Corpuscular Hemoglobin 28.8 PG (26-34); Mean Corpuscular Volume 85.9 fL (80-100); Platelet Count 238 X10^3/uL (150-400); Red Blood Cell Count 3.45 X10^6/uL (4.0-5.2); Red Cell Distribution Width 17.1 % (11.6-14.8); White Blood Cell Count 11.7 X10^3/uL (4.5-11.0)
[2024-10-20 06:48] LABS: BUN Creatinine Ratio 14.3 (6-22); Blood Urea Nitrogen 7 mg/dL (7-17); Calcium 7.3 mg/dL (8.4-10.2); Carbon Dioxide 18 mmol/L (22-32); Chloride 114 mmol/L (98-107); Estimated Glomerular Filt Rate > 60 mL/min (>60); Glucose 97 mg/dL (70-99); HEMOLYSIS < 15 (0-50); Magnesium 1.7 mg/dL (1.6-2.3); Potassium 2.9 mmol/L (3.4-5.1); Sodium 136 mmol/L (137-145)
--- NOTE | 2024-10-20 07:28 | PM.PN.1 ---
Subjective Subjective Interval history: S: She remains weak, mildly confused. She was able to sit in the edge of the bed with therapy yesterday. She was not strong enough to stand yet. Exam Vital Signs (past 8 hours): - 10/20/24 00:37 10/20/24 02:44 10/20/24 06:10 Temperature 98.1 F 97.8 F Pulse Rate 117 H 112 H 115 H Respiratory Rate 16 16 16 Blood Pressure 99/66 98/69 93/59 L Pulse Oximetry 96 97 97 Oxygen Flow Rate 0 0 Oxygen Delivery Method Room Air Oxygen Flow Rate 0 Narrative Exam Narrative: NAD, alert and oriented. Fluent speech. She was cachectic, and frail. She was somewhat slow to answer questions. Lungs are clear, normal rate and effort. Heart is regular, no murmur gallop or rub. Abdomen is soft, non distended. Extremities are free of edema. Objective Labs 10/20/24 06:10 10/20/24 06:10 Labs: Laboratory Results - last 24 hr 10/19/24 10/19/24 10/20/24 07:15 22:11 00:55 WBC RBC Hgb Hct MCV MCH MCHC RDW Plt Count Sodium 134 L Potassium 3.1 L Chloride 112 H Carbon Dioxide 20 L BUN 6 L Creatinine 0.43 L Estimated GFR > 60 BUN/Creatinine Ratio 14.0 Glucose 71 Calcium 7.6 L Magnesium 1.7 Troponin I 0.035 H 0.034 10/20/24 06:10 WBC 11.7 H RBC 3.45 L Hgb 10.0 L Hct 29.7 L MCV 85.9 MCH 28.8 MCHC 33.6 RDW 17.1 H Plt Count 238 Sodium 136 L Potassium 2.9 L Chloride 114 H Carbon Dioxide 18 L BUN 7 Creatinine 0.49 L Estimated GFR > 60 BUN/Creatinine Ratio 14.3 Glucose 97 Calcium 7.3 L Magnesium 1.7 Troponin I [facility] Medical History Amenorrhea Neuropathy Chronic venous insufficiency Obstructive sleep apnea (Unknown) GERD (gastroesophageal reflux disease) (Unknown) Allergy (Unknown) Restless leg syndrome (2014) Anxiety (1989) Shoulder pain (Unknown) Foot pain (2003) Chronic back pain (Unknown) Vertigo (1979) Painful menstrual periods (Unknown) Heavy menses (Unknown) IBS (irritable bowel syndrome) (1985) Surgical History 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) Hx of sinus surgery (2011) History of removal of laparoscopic gastric banding device (2014) Hx of laparoscopic gastric banding (2011) Family History Grandmother Cancer Mental health problem Mother Age: 76 Mental health disorder Sister Age: 58 Heart disease Hypertension High cholesterol Mental health problem Asthma COPD (chronic obstructive pulmonary disease) Social History household members: spouse and family Smoking Status: Current every day smoker Tobacco: How many years used: 10 second hand exposure: No alcohol intake: current substance use type: does not use Assessment & Plan Assessment & Plan narrative: 1. Acute and subacute right frontal and possible left parietal punctate infarcts, Stable. Continue high-intensity statin therapy, aspirin. 2. 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 3. 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 4. Alcohol withdrawal delirium, resolved. 5. Benzodiazepine/baclofen dependence, stable. Continuing on her home doses of medications. 6. Peripheral neuropathy, stable. Continues vitamin-B supplementation 7. Failure to thrive/debility, active. She is on a citalopram for depression. 8. Hypokalemia, active. 9. Acute on chronic anemia, Stable. 10. Hypoglycemia, improved. PLAN: -replace K. -OOB, PT -Discharge planning. Time-Based Coding :: [TOTAL MINUTES] spent with patient and on the chart (including review of chart, obtaining history, exam, reviewing outside data, placing orders, documenting exam and treatment plan, and counseling patient) on [DATE]. Quality VTE Deep Vein Thrombosis/Pulmonary Embolism Present on Admission: No
[2024-10-20] MEDS: LEVOTHYROXINE 75 MCG TABLET PO (07:34)
--- NOTE | 2024-10-20 08:32 | CM.DPC ---
DCP Cont: SW called [facility] and they state pt's assigned chief investigator is Trang Mclain [phone] and left msg for Trang requesting call back as all 3 household family members admitted and need to discuss options. Confirmation email from [facility] Freight Manager Geraldine Dave states Application and Referral received.? ? I have reviewed and forwarded the Hospital IRF to the intake folder/worker that will get the referral assigned. regarding the Medicaid LTC application and [facility] Expedited referral sent for patient. SW secure emailed updated clinicals to admissions at [facility] and [facility] requesting review to confirm if either can accept for SNF rehab while waiting for LTC application to be reviewed vs return home if pt not approved for LTC. ROMARIO Steele
[2024-10-20] MEDS: IBUPROFEN 400 MG TABLET 800 MG PO (08:59)
[2024-10-20] MEDS: POTASSIUM CHLORIDE 20 MEQ TAB 40 MEQ PO ×2 (08:59→16:43)
--- NOTE | 2024-10-20 09:27 | PC.NURSE ---
Addendum entered by Pretty Garcia R.N. 10/20/24 19:37: Patients blood pressure systolic 89, aware with no new orders. Patient also has not voided yet this shift. Talked to and he wants us to bladder scan patient every shift until she is able to void. Passed onto application counselor. She has not been eating the best, or drinking. We have encourged this but patient does what she wants to do. She is still hallucinating and thinks ants are in her bed, etc. Resting now and clonezapam given earlier. Original Note: Patient is alert but confused, saying things that have not happened to her, she told the student nurse that staff dumped fluids on her, etc. She has not hallucinated this am and does seem slightly better, but still disoriented. Patients bottom is pink and slightly opened but looks much better then when she was admitted. We are repositioning her and applying cream to her bottom after each incontinence. Patient does not have good use of her hands, tracey the left one. She has had previous strokes and has limited ROM. She is pleasant to staff and allows care. Will check on patient frequently to make sure her care and concerns are being met.
[2024-10-20] MEDS: ASPIRIN EC 81 MG TABLET PO (09:43)
[2024-10-20] MEDS: DOCUSATE 100 MG CAPSULE PO ×2 (09:45→21:35)
[2024-10-20] MEDS: ESCITALOPRAM 10 MG TABLET 20 MG PO (09:46)
[2024-10-20] MEDS: estradioL 1 MG TABLET 0.5 MG PO (09:47)
[2024-10-20] MEDS: GABAPENTIN 300 MG CAPSULE PO ×2 (09:49→21:36)
[2024-10-20] MEDS: FOLIC ACID 1 MG TABLET PO (09:49)
[2024-10-20] MEDS: HEPARIN 5,000 UNIT/ML VIAL 5000 UNIT SUBCUT ×2 (09:50→21:37)
[2024-10-20] MEDS: MULTIVITAMIN 1 TABLET 1 TAB PO (09:51)
[2024-10-20] MEDS: THIAMINE 100 MG TABLET PO (09:51)
[2024-10-20] MEDS: PROGESTERONE, MICRONIZED 100 MG CAPSULE PO (09:51)
--- NOTE | 2024-10-20 13:40 | PT.IPTN ---
Current Diagnoses Cerebral infarction, unspecified (10/12/24) Physical Therapy Treatment Note M2 PT-IP Current Condition Start: 10/12/24 09:30 Freq: Status: Active Protocol: Document 10/12/24 10:47 MB (Rec: 10/12/24 11:25 MB Desktop) Physical Therapy Current Condition Current Condition Evaluation Date 10/12/24 Treatment Diagnosis Adm with weakness M3 PT-IP Subjective Start: 10/12/24 09:30 Freq: Status: Active Protocol: Document 10/20/24 13:40 AB (Rec: 10/20/24 16:00 AB [id number]) Subjective Physical Therapy Visit Type Type Treatment Note Visit Start Time 13:40 Visit Stop Time 14:05 Number of GENERAL MANAGER Visits 0 Physical Therapy Visit Comments Patient Comments agreed to do PT; continues to have confusion M4 PT-IP Mobility and Gait Start: 10/12/24 09:30 Freq: Status: Active Protocol: Document 10/20/24 13:40 AB (Rec: 10/20/24 16:00 AB [id number]) PT-Bed Mobility Assessment Supine to Sit Supine to Sit Maximum Assistance,1 Person Assistance,Head of Bed Elevated,Bedrails Scooting Scooting to Edge of Bed Maximum Assistance,Dependent PT-Transfer Assessment Sit to and From Stand Sit to and from Stand Maximum Assistance,2 Person Assistance,Use of Upper Extremities Equipment Transfer Assistive Device Gait Belt,Front Wheeled Walker Orthotic/Prosthetic Devices or Brace: No Transfers Transfer Destination Chair Transfer Technique Squat Pivot Transfer Ability Level of Assist Moderate Assistance,2 Person Assistance,Use of Upper Extremities Comments Mobility Comments pt in bed. NAC in room to assist. pt completed bed mobility supine to sit max A and max cues. pt continues to have confusion and initially was rolling on oppisite side of bed to get up. re-oriented pt back to task. pt able to sit on EOB min A and max cues. completed sit<>stand from EOB max A x 2 and max cues. unable to fully get to upright position on first 2 attempts and only tolerated ~ 2-3 sec of standing. pt rested. encouraged pt to try again and to use FWW for support. completed another sit <>stand requiring max Ax 2 and max cues. able to stand more upright with use of FWW and tolerated ~ 8 sec of standing. pt sat back on EOB. agreed to transfer to chair. completed squat pivot transfer max A x 2 and max cues with PT assisting pt from the front and NAC behind pt to assist. positioned pt on the chair. call light and table placed within reach. 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,Power Line Lineman Impaired Comments Pt does not clearly state full history when asked Gross Range of Motion Upper Extremity ROM Assessment Bilaterally Impaired Lower Extremity ROM Assessment Bilaterally Impaired Strength Comments Strength Comments Pt does not tolerate formal range and MMT today d/t pain and she has global muscle atrophy, cachexia Coordination Assessment Assessment Coordination Comments NT Sensation Assessment Comments Sensation Comments NT M6 PT-IP Treatment Start: 10/12/24 09:30 Freq: Status: Active Protocol: Document 10/20/24 13:40 AB (Rec: 10/20/24 16:00 AB [id number]) Physical Therapy Treatment Education Education Provided Safety M7 PT-IP Assessment and Plan Start: 10/12/24 09:30 Freq: Status: Active Protocol: Document 10/20/24 13:40 AB (Rec: 10/20/24 16:00 AB [id number]) PT Summary Assessment and Plan Potential Rehabilitation Potential Fair Summary Impairments Pain,ROM,Strength,Balance, Coordination,Sensation,Tone, Cognition,Bed Mobility, Transfers,Gait,Activity Tolerance Progress Towards Goals Slow Progress due to Medical Issues,Slow Progress due to Activity Tolerance,Slow Progress - Other Assessment Summary pt requiring max A for bed mobility, max a x 2 for sit to stand using FWW for support. pt was able to transfer to chair today requiring max A x 2 for squat pivot transfer. pt will benefit from SNF rehab to improve strength and function. Goals Bed Mobility Goal Minimal Assistance Transfer Goal Minimal Assistance,Front Wheeled Walker Gait Goal Minimal Assistance,Front Wheel Walker Gait Distance 25 Other Goals Squat pivot transfer bed-chair with mod assist of one person Days to Meet Goals 10 Frequency of Treatment Frequency Of Treatment Once a Day Treatment Plan Physical Therapy Treatment Plan Bed Mobility Training,Transfer Training,Gait Training, Therapeutic Exercise,Balance Retraining,Discharge Planning, Neuromuscular Re-ed, Coordination Retraining Precautions Other Precautions fall Recommendations To Nursing Amount of Assist Needed Mechanical Lift Discharge Recommendations Other Discharge Recommendations SNF vs LTC Transportation Needs at Discharge Stretcher/Ambulance - PT assist 2
[2024-10-20] MEDS: clonazePAM 0.5 MG TABLET PO (15:31)
[2024-10-20] MEDS: ATORVASTATIN 20 MG TABLET 80 MG PO (21:35)
[2024-10-20] MEDS: BACLOFEN 10 MG TABLET 20 MG PO (21:36)
[2024-10-20] MEDS: SODIUM CHLORIDE 0.9% FLUSH 10 ML IV (21:37)
[2024-10-21] VITALS (10 sets, daily range): BP systolic 74–94; BP diastolic 42–63; PULSE 119–132; RESP 12–20; TEMP 36.1–36.7; O2SAT 91–97
[2024-10-21 06:23] LABS: BUN Creatinine Ratio 9.9 (6-22); Blood Urea Nitrogen 11 mg/dL (7-17); Calcium 7.6 mg/dL (8.4-10.2); Carbon Dioxide 11 mmol/L (22-32); Chloride 113 mmol/L (98-107); Estimated Glomerular Filt Rate 60 mL/min (>60); Glucose 91 mg/dL (70-99); HEMOLYSIS 17 (0-50); Magnesium 1.7 mg/dL (1.6-2.3); Potassium 3.8 mmol/L (3.4-5.1); Sodium 132 mmol/L (137-145)
[2024-10-21] MEDS: LEVOTHYROXINE 75 MCG TABLET PO (06:40)
--- NOTE | 2024-10-21 07:26 | P.PN_ITS ---
Subjective Subjective Interval history: Summary: She is a 54-year-old female who presented with weakness and electrolyte abnormalities in context of severe alcohol use disorder. She was failing to get stronger, or participate in therapies. We are looking for possible rehabilitation versus placement possibility for her. S: She continues to be weak and minimally interactive. Social work is working on different possibilities including rehab versus long-term care. Exam Vital Signs (past 8 hours): - 10/21/24 00:30 10/21/24 05:05 10/21/24 05:07 Temperature 97.2 F L Pulse Rate 119 H 129 H 128 H Respiratory Rate 18 Blood Pressure 94/63 74/42 L 76/49 L Pulse Oximetry 96 95 95 Oxygen Flow Rate 0 0 0 10/21/24 05:12 10/21/24 06:53 Temperature 97.5 F L 96.9 F L Pulse Rate 127 H 125 H Respiratory Rate 20 20 Blood Pressure 76/42 L 75/42 L Pulse Oximetry 96 95 Oxygen Flow Rate 0 0 Oxygen Delivery Method Room Air Oxygen Flow Rate 0 Narrative Exam Narrative: NAD, slow and soft speech. She is cachectic, and frail. She is slow to answer questions. Lungs are clear, normal rate and effort. Heart is regular, no murmur gallop or rub. Abdomen is soft, non distended. Extremities are free of edema. Objective Labs 10/21/24 07:27 10/21/24 05:40 Labs: Laboratory Results - last 24 hr 10/21/24 05:40 Sodium 132 L Potassium 3.8 Chloride 113 H Carbon Dioxide 11 L BUN 11 Creatinine 1.11 H Estimated GFR 60 BUN/Creatinine Ratio 9.9 Glucose 91 Calcium 7.6 L Magnesium 1.7 [facility] Medical History Amenorrhea Neuropathy Chronic venous insufficiency Obstructive sleep apnea (Unknown) GERD (gastroesophageal reflux disease) (Unknown) Allergy (Unknown) Restless leg syndrome (2014) Anxiety (1989) Shoulder pain (Unknown) Foot pain (2003) Chronic back pain (Unknown) Vertigo (1979) Painful menstrual periods (Unknown) Heavy menses (Unknown) IBS (irritable bowel syndrome) (1985) Surgical History 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) Hx of sinus surgery (2011) History of removal of laparoscopic gastric banding device (2014) Hx of laparoscopic gastric banding (2011) Family History Grandmother Cancer Mental health problem Mother Age: 76 Mental health disorder Sister Age: 58 Heart disease Hypertension High cholesterol Mental health problem Asthma COPD (chronic obstructive pulmonary disease) Social History household members: spouse and family Smoking Status: Current every day smoker Tobacco: How many years used: 10 second hand exposure: No alcohol intake: current substance use type: does not use Assessment & Plan Assessment & Plan narrative: 1. Acute and subacute right frontal and possible left parietal punctate infarcts, Stable. Continue high-intensity statin therapy, aspirin. 2. 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 3. 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 4. Alcohol withdrawal delirium, resolved. 5. Benzodiazepine/baclofen dependence, stable. Continuing on her home doses of medications. 6. Peripheral neuropathy, stable. Continues vitamin-B supplementation 7. Failure to thrive/debility, active. She is on a citalopram for depression. 8. Hypokalemia, active. 9. Acute on chronic anemia, Stable. 10. Hypoglycemia, improved. PLAN: -replace K as needed. -OOB, PT -Discharge planning (alcohol rehab vs LTC). Time-Based Coding :: [TOTAL MINUTES] spent with patient and on the chart (including review of chart, obtaining history, exam, reviewing outside data, placing orders, documenting exam and treatment plan, and counseling patient) on [DATE]. Quality VTE Deep Vein Thrombosis/Pulmonary Embolism Present on Admission: No
[2024-10-21 08:10] LABS: Hematocrit 23.7 % (36-46); Hemoglobin 7.8 g/dL (12.0-16.0); Mean Corpuscular Hemoglobin 28.4 PG (26-34); Mean Corpuscular Volume 86.1 fL (80-100); Platelet Count 240 X10^3/uL (150-400); Red Blood Cell Count 2.75 X10^6/uL (4.0-5.2); Red Cell Distribution Width 17.7 % (11.6-14.8); White Blood Cell Count 14.8 X10^3/uL (4.5-11.0)
[2024-10-21] MEDS: FOLIC ACID 1 MG TABLET PO (09:04)
[2024-10-21] MEDS: POTASSIUM CHLORIDE 20 MEQ TAB 40 MEQ PO (09:04)
[2024-10-21] MEDS: GABAPENTIN 300 MG CAPSULE PO ×2 (09:04→19:51)
[2024-10-21] MEDS: ASPIRIN EC 81 MG TABLET PO (09:04)
[2024-10-21] MEDS: estradioL 1 MG TABLET 0.5 MG PO (09:04)
[2024-10-21] MEDS: THIAMINE 100 MG TABLET PO (09:04)
[2024-10-21] MEDS: DOCUSATE 100 MG CAPSULE PO ×2 (09:04→19:51)
[2024-10-21] MEDS: ESCITALOPRAM 10 MG TABLET 20 MG PO (09:04)
[2024-10-21] MEDS: MULTIVITAMIN 1 TABLET 1 TAB PO (09:04)
[2024-10-21] MEDS: NICOTINE 14 PATCH 14 MG TOP (09:05)
[2024-10-21] MEDS: SODIUM CHLORIDE 0.9% FLUSH 10 ML IV (09:05)
[2024-10-21] MEDS: PROGESTERONE, MICRONIZED 100 MG CAPSULE PO (09:12)
--- NOTE | 2024-10-21 11:48 | CM.DPC ---
DCP Cont. Reviewed EMR and team rounds for status updates. Called [facility] to clarify if they had reviewed her referral, they did confirm that they can accept her, and started the Paul auth. Anticipated d/c in the next day or two.
--- NOTE | 2024-10-21 15:23 | OT.IP.TRT ---
Current Diagnoses Cerebral infarction, unspecified (10/12/24) Occupational Therapy Treatment Note M2 OT-IP Current Condition Start: 10/13/24 14:37 Freq: Status: Active Protocol: Document 10/15/24 15:52 [facility] (Rec: 10/15/24 16:26 [facility] Desktop) Occupational Therapy Current Condition Current Condition Evaluation Date 10/15/24 Treatment Diagnosis CVA, failure to thrive Diagnosis Onset Date 10/12/24 M3 OT- IP Subjective and Pain Start: 10/13/24 14:37 Freq: Status: Active Protocol: Document 10/21/24 15:25 [facility] (Rec: 10/21/24 15:36 [facility] Desktop) OT- Subjective Occupational Therapy Visit Type Type Treatment Note Visit Start Time 15:12 Visit Stop Time 15:23 Notes discussed with nursing, pt has been sleeping for most of the day. OT Pain Assessment Pain When Pain Assessed At Rest Pain Present Pain Present Pain Reported Location Generalized Scale Used did not rate Management Techniques Modification of Treatment,Re- positioning M4 OT- IP ADL's Start: 10/13/24 14:37 Freq: Status: Active Protocol: Document 10/21/24 15:25 [facility] (Rec: 10/21/24 15:36 [facility] Desktop) OT [id number] Comments OT Self-Feeding Comments pt is not able to hold cup on this date OT ADL-Grooming Comments OT Grooming Comments Pt is not able to follow commands to wash face OT ADL-Oral Care General Eval Oral Care Ability Total Assistance Areas of Assistance Brushing Teeth Comments Oral Care Comments Pt is not able to hold tooth brush or stay awake for brushing teeth with assist. OT ADL-Dressing General Eval Lower Body Dressing Ability Total Assistance Areas Needing Assistance Socks OT ADL-Toileting Comments OT Toileting Comments not performed OT ADL-Bathing Comments OT Bathing Comments not performed M5 OT- IP IADL's Start: 10/13/24 14:37 Freq: Status: Active Protocol: Document 10/15/24 15:52 [facility] (Rec: 10/15/24 16:26 [facility] Desktop) OT-Instrumental Activities of Daily Living Deficits IADL Deficits Identified Deficits Home Safety Awareness Awareness of Need for Assistance at Home Good Awareness Medication Management Medication Management Caregiver Administers Money Management Money Management Caregiver Provides Assistance Meal Preparation Meal Preparation Caregiver Provides Assist Harbour Master Harbour Master Caregiver Provides Assist M6 OT- IP Functional Cognition Start: 10/13/24 14:37 Freq: Status: Active Protocol: Document 10/16/24 12:05 [facility] (Rec: 10/16/24 12:22 [facility] Desktop) Cognitive Factors Limiting Selfcare Function Cognitive Ability Level of Alertness Confusional State,Drowsy Patient Orientation Name Attention Span Ability Unable to Focus,Unable to Sustain Attention Ability to Follow Commands Able to Follow One Step Commands with Increased Time, Able to Follow One Step Commands with Repetition Memory Description Short Term Impaired Cognitive Comments Cognitive Assessment Comments Pt today much more drowsy and not able to stay awake for therapy today. Pt needing constant cues to try to keep her eyes open. Pt talking in low soft voice and hard to understand. Pt did state, Am I going to . Encouraged pt to participate and especially try to eat. Nursing notified. M7 OT- IP Mobility and Balance Start: 10/13/24 14:37 Freq: Status: Active Protocol: Document 10/21/24 15:25 [facility] (Rec: 10/21/24 15:36 [facility] Desktop) OT- Bed Mobility Assessment Rolling Type of Rolling Roll to Left Level of Assistance Total Assistance OT-Transfer Assessment Comments Mobility Comments Pt is not able to follow simple commands to reach for hand holds or hold onto the handholds after her hand is placed there. OT- Gait Assessment Comments Gait Ability Comments not able to perform M8 OT- IP Objective Assessments Start: 10/13/24 14:37 Freq: Status: Active Protocol: Document 10/15/24 15:52 [facility] (Rec: 10/15/24 16:26 [facility] Desktop) OT Gross Range of Motion Upper Extremity Range of Motion ROM Impairments Grossly WFL OT Strength Upper Extremity Strength Assessment Bilaterally Impaired Comments Strength Comments BUE 4-/5 to 4/5 OT- Coordination Assessment Comments Coordination Comments NT M9 OT- IP Assessment and Plan Start: 10/13/24 14:37 Freq: Status: Active Protocol: Document 10/21/24 15:25 [facility] (Rec: 10/21/24 15:38 [facility] Desktop) OT Summary Assessment and Plan Potential Rehabilitation Potential Fair Analytic Complexity at Evaluation High Summary OT Impairments Pain,Range of Motion,Strength, Balance,Coordination, Functional Cognition, Functional Mobility,Self- Feeding,Grooming,Dressing, Toileting,Bathing,Toilet Transfers,Shower Transfers, Activity Tolerance Progress Towards Goals Slow Progress due to Pain,Slow Progress due to Medical Issues,Slow Progress due to Activity Tolerance,Slow Progress due to Cognition Assessment Summary Pt is not participatory in todays session. Pt is not currently appropriate for OT services at this time. Will discharge OT order. Please reorder if/when pt is more participatory. Goals Self-Feeding Goal Independent Grooming Goal Independent Dressing Goal Minimal Assistance Toileting Goal Minimal Assistance Bathing Goal Moderate Assistance Toilet Transfer Goal Moderate Assistance Shower Transfer Goal Moderate Assistance Days to Meet Goals 40 Frequency of Treatment Frequency Of Treatment Discharge Other frequency 5x/week Treatment Plan OT Treatment Plan ADL Training,Functional Cognition Training,Functional Mobility,Therapeutic Exercises ,Patient/Family Education, Discharge Planning Other Treatment Recommendations and Next Oral care with SBA while Treatment Focus seated on the edge of bed. Discharge Recommendations OT Discharge Recommendations LTAC Transportation Needs at Discharge Wheelchair/Cabulance,Stretcher /Ambulance
--- NOTE | 2024-10-21 16:00 | PT.IPTN ---
Current Diagnoses Cerebral infarction, unspecified (10/12/24) Physical Therapy Treatment Note M2 PT-IP Current Condition Start: 10/12/24 09:30 Freq: Status: Active Protocol: Document 10/12/24 10:47 MB (Rec: 10/12/24 11:25 MB Desktop) Physical Therapy Current Condition Current Condition Evaluation Date 10/12/24 Treatment Diagnosis Adm with weakness M3 PT-IP Subjective Start: 10/12/24 09:30 Freq: Status: Active Protocol: Document 10/21/24 16:00 AB (Rec: 10/21/24 17:18 AB [id number]) Subjective Physical Therapy Visit Type Type Treatment Note Visit Start Time 16:00 Visit Stop Time 16:15 Number of KILN PACKER Visits 0 M4 PT-IP Mobility and Gait Start: 10/12/24 09:30 Freq: Status: Active Protocol: Document 10/21/24 16:00 AB (Rec: 10/21/24 17:18 AB [id number]) PT-Bed Mobility Assessment Supine to Sit Supine to Sit Maximum Assistance,1 Person Assistance,2 Person Assistance Sit to Supine Sit to Supine Total Assistance,2 Person Assistance PT-Transfer Assessment Comments Mobility Comments pt in bed and initially refusing PT but encourage to move and agreed. pt continues to have confusion. pt tends to doze off for a few seconds during tx session. completed supine to sit max A x 1-2 and max cues. pt tends to pause and doze off in between task and needed to cue to continue moving. pt requiring max A for sitting balance and continues to doze off even sitting on EOB and leans back requiring total A for sitting position. opted to assist pt back in bed requiring total A x 2 for sit to supine. positioned pt in bed. call light and table placed next to pt. informed hospitalist and social worker palliative care that PT will d /c pt due to pt's continued lack of participation and progress. 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,Supervisor Wet End Impaired Comments Pt does not clearly state full history when asked Gross Range of Motion Upper Extremity ROM Assessment Bilaterally Impaired Lower Extremity ROM Assessment Bilaterally Impaired Strength Comments Strength Comments Pt does not tolerate formal range and MMT today d/t pain and she has global muscle atrophy, cachexia Coordination Assessment Assessment Coordination Comments NT Sensation Assessment Comments Sensation Comments NT M6 PT-IP Treatment Start: 10/12/24 09:30 Freq: Status: Active Protocol: Document 10/21/24 16:00 AB (Rec: 10/21/24 17:18 AB [id number]) Physical Therapy Treatment Education Education Provided Safety M7 PT-IP Assessment and Plan Start: 10/12/24 09:30 Freq: Status: Active Protocol: Document 10/21/24 16:00 AB (Rec: 10/21/24 17:18 AB [id number]) PT Summary Assessment and Plan Potential Rehabilitation Potential Fair Summary Impairments Pain,ROM,Strength,Balance, Coordination,Sensation,Tone, Cognition,Bed Mobility, Transfers,Gait,Activity Tolerance Progress Towards Goals Slow Progress - Other Assessment Summary pt continues to require max A x 2 to total A x 2 with bed mobility and has decrease participation, progress and carryover of techniques with continued confusion/decrease cognition contributing to decrease in progress. will d/ c pt from PT. hospitalist and social worker palliative care aware. Frequency of Treatment Frequency Of Treatment Discharge Recommendations To Nursing Amount of Assist Needed Mechanical Lift Discharge Recommendations Other Discharge Recommendations LTC placement Transportation Needs at Discharge Stretcher/Ambulance - PT assist 2
[2024-10-21] MEDS: DEXTROSE 5%-0.9% NS 1,000 ML 84 ML IV (18:20)
[2024-10-21] MEDS: ATORVASTATIN 20 MG TABLET 80 MG PO (19:51)
[2024-10-21] MEDS: HEPARIN 5,000 UNIT/ML VIAL 5000 UNIT SUBCUT (19:51)
--- NOTE | 2024-10-21 23:15 | PC.NURSE ---
Addendum entered by Viviana Johnson R.N. 10/22/24 06:22: Did drink apprx 120cc of ensure tonight plus 200cc of water. She needs cueing to suck through straw and to swallow. Color is very pale and looks almost jaundiced this morning. Last BP was 83/41. Has not voided; bladder scan now at 366cc but still below the 400cc threshhold of order. Original Note: Patient awakens to voice and is able to state her name, birthdate, month and knows she is in the hospital. Breath sounds CTA with RA sat of 93%. HRR but tachy at 121; telemetry was ST. BP also trending low and was 92/56 at start of shift. BT hypoactive and has not had a BM since 10/17 but has been declining her Miralax; taking Colace. Has not voided since 133 but bladder scan showing only 265cc. aware and did order IVF which is infusing at 84cc/h. Is being repositioned q2h as not turning herself. Coccyx much better looking from on admit; pressure relieving foam dressing applied for prevention. SCD's not in use due to history of agitation but is currently receiving heparin SQ BID. Fall risk score is high and bed alarm is activated. Denied pain. Drank some Ensure at start of shift with hs meds. At this time she was repositioned and willingly drank some Ensure clear after which she had emesis; medicated with Zofran.
[2024-10-21] MEDS: ONDANSETRON 4 MG/2 ML INJ IV (23:25)
[2024-10-22] VITALS (80 sets, daily range): BP systolic 65–122; BP diastolic 32–66; PULSE 112–155; RESP 0–25; TEMP 36.1–37.2; O2SAT 82–100
[2024-10-22] MEDS: HYDROMORPHONE 2 MG TABLET PO (00:05)
[2024-10-22] MEDS: DEXTROSE 5%-0.9% NS 1,000 ML 84 ML IV (05:35)
[2024-10-22] MEDS: LEVOTHYROXINE 75 MCG TABLET PO (05:55)
[2024-10-22 06:59] LABS: BUN Creatinine Ratio 8.8 (6-22); Blood Urea Nitrogen 15 mg/dL (7-17); Carbon Dioxide 13 mmol/L (22-32); Chloride 113 mmol/L (98-107); Estimated Glomerular Filt Rate 36 mL/min (>60); Glucose 143 mg/dL (70-99); HEMOLYSIS < 15 (0-50); Magnesium 1.9 mg/dL (1.6-2.3); Potassium 3.7 mmol/L (3.4-5.1); Sodium 133 mmol/L (137-145)
--- NOTE | 2024-10-22 08:41 | DI.RAD.S_ITS ---
PROCEDURE: XR CHEST 1V INDICATIONS: hypoxia TECHNIQUE: One view of the chest was acquired. COMPARISON: [facility], CR, XR CHEST 1V, 10/12/2024, 16:16. FINDINGS: Surgical changes and devices: None. Lungs and pleura: Patchy bilateral airspace consolidation, right greater than left. No pleural effusions or pneumothorax. Mediastinum: Mediastinal contours appear normal. Heart size is normal. Bones and chest wall: No suspicious bony lesions. Overlying soft tissues appear unremarkable. IMPRESSION: Findings likely represent bilateral pneumonia, right greater than left. Comment: Progress films are recommended until clear. Dictated by: Thomas Escobar M.D. on 10/22/2024 at 9:17 Approved by: Thomas Escobar M.D. on 10/22/2024 at 9:17
[2024-10-22] MEDS: PIPERACILLIN/TAZO 3.375 GM in SODIUM CHLORIDE 0.9% 100 ML IV ×2 (09:04→16:19)
[2024-10-22] MEDS: LACTATED RINGERS 415.94 ML IV (09:04)
[2024-10-22 10:34] LABS: Appearance Urine UA CLEAR; Bilirubin Urine UA 2+ (NEGATIVE); Color Urine UA BROWN; Glucose Urine UA TRACE g/dL (Negative); Ketones Urine UA NEGATIVE (NEGATIVE); Leukocyte Esterase Urine UA 1+ (NEGATIVE); Nitrite Urine UA POSITIVE (Negative); Occult Blood Urine UA 1+ (Negative); Protein Urine UA 1+ (Negative); Specific Gravity Urine UA 1.025 (1.000-1.035); pH Urine UA 5.5 (4.5-8.0)
[2024-10-22 10:36] LABS: Ictotest Urine Positive (Negative); Urine Volume 10mL (spun)
[2024-10-22 10:37] LABS: Bacteria Urine Moderate (10-30); Culture Indicated Urine Specimen Cultured; RBC Urine 1-5/HPF (0-5/HPF); Squamous Epithelial Cell Urine 1-5 /HPF (0-5/HPF); WBC Urine 5-10/HPF (0-5/HPF)
--- NOTE | 2024-10-22 10:38 | PC.NURSE ---
this morning three different phlebotomists tried to draw labs on Pt and were unsuccessful. Dr Polk ordered a PICC line to be placed. @ 1010 the DI nurse arrived to place a PICC line. The Pt refused multiple times, I and the DI nurse explained the procedure, and the reasons for it and Pt still refuses. Dr. Polk is aware of Pt status.
[2024-10-22] MEDS: HALOPERIDOL 5 MG/ML VIAL 2 MG IV (11:16)
--- NOTE | 2024-10-22 11:49 | PM.CALLCOV.1 ---
Call Coverage Note Note Date of Patient Contact: 10/22/24 Narrative of Care Provided: This morning patient hypotensive, has been persistently tachycardic (has been throughout admission). RN reporting patient hallucinations this morning. Patient does not have decisional capacity at this time, but is currently refusing PICC placement and care. Unable to draw labs including CBC. Patient initially responsive to sepsis bolus, started on zosyn. CXR shows b/l pneumonia, UA also positive. Suspect more aspiration at this time given malnutrition and stroke. Patient was full code, will continue as such for now. Patients BP subsequently dropped again after fluids, restarted IV fluids at 250 cc per hour. Will need to move beds in the unit to make a bed for her. Transfer to ICU for levophed and presumed septic shock due to aspiration pnuemonia. Patient given 2 mg of haldol, if continuing to refuse will consider additional valium to allow for access.
[2024-10-22] MEDS: NOREPINEPHRINE BITARTRATE/D5W 4 MG/250 ML PLAST..BAG 155.978 MG IV (12:23)
[2024-10-22] MEDS: DEXTROSE 5%-0.9% NS 1,000 ML 250 ML IV ×2 (12:24→18:36)
[2024-10-22] MEDS: diazePAM 10 MG/2 ML SYRINGE 5 MG IV (12:24)
[2024-10-22] MEDS: propofoL 200 MG/20 ML VIAL 100 MG IV (12:38)
[2024-10-22] MEDS: ROCURONIUM 50 MG/5 ML INJ IV (12:38)
--- NOTE | 2024-10-22 12:44 | DI.RAD.S_ITS ---
PROCEDURE: XR CHEST 1V INDICATIONS: s/p intubation, central placement,OG tube TECHNIQUE: One view of the chest was acquired. COMPARISON: [facility], CR, XR CHEST 1V, 10/22/2024, 8:39. [facility], CR, XR CHEST 1V, 10/12/2024, 16:16. FINDINGS AND IMPRESSION: ET tube projects over the distal trachea. Right central line projects over the lower SVC. Enteric tube is in the gastric body. Moderate diffuse lung disease, representing infection, alveolar damage, and/or edema. Suspect small right pleural effusion. Normal heart size. Degenerative osseous changes. Dictated by: Alessandro Rees M.D. on 10/22/2024 at 13:45 Approved by: Alessandro Rees M.D. on 10/22/2024 at 13:45
[2024-10-22] MEDS: propofoL 1,000 MG/100 ML VIAL 1.248 MG IV (13:04)
[2024-10-22] MEDS: fentaNYL 1,000 MCG in DEXTROSE 5% IN WATER 230 ML 7.279 MCG IV (13:05)
[2024-10-22] MEDS: NOREPINEPHRINE BITARTRATE/D5W 4 MG/250 ML PLAST..BAG 311.955 MG IV (13:29)
[2024-10-22] MEDS: VASOPRESSIN 40 UNIT in SODIUM CHLORIDE 0.9% 100 ML 4.5 UNIT IV (14:12)
[2024-10-22] MEDS: PHENYLEPHRINE 20,000 MCG in DEXTROSE 5% IN WATER 250 ML 7.799 MCG IV (14:13)
--- NOTE | 2024-10-22 14:30 | PM.CN.EICU ---
History of Present Illness Consult details IF CAMERA ACTIVATED, patient seen via real-time interactive audiovisual communication: Camera activated Chief complaint: unable to care self Consent obtained for tele-senior peoplesoft developer care: Yes Patient Location: ICU Provider location (State): Other participants/roles: RN Narrative: 54-year-old female with a long history of alcohol use, chronic anxiety previous admissions for accidental overdosing combining benzodiazepines with alcohol, she has been bed-bound and chair or chair bound for the past month unable to care for self. Pt presented for not been able to care for self, was not able to get out of bed for long time causing her to have multiple sores over her sacrum. Workup in the ED : MRI demonstrating small punctate CVA and frontal deep white matter and possibly right parietal cortex CTA of head and neck unremarkable echocardiogram from previous admission is also unremarkable. CT of the cervical spine is unremarkable as well. Per staff pt has been refusing care inside the hospital as well, she had an episode of aspiration today with worsening mental and resp status / hypoxia requiring intubation. She also became hypotensive requring initation of high dose of levo. 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 IV albumin 5% 500 ml, adding vaso and Kwadwo and weaning off Levo bec of sinus tach 140s IV stress dose hydrocortison Check ABG, lactic acid, Renal panel Continue braod spectrum Ab, follow resp and blood Cx PPI for GI ppx Mechanical vte, may start SC heparin if H&H stable Hold statin and Gabapentin in the sitting of GAVINO H/O Benzodiazepine/baclofen dependence, stable. Continuing BZD and Baclofen to avoid withdrawal PFSH Medical History Amenorrhea Neuropathy Chronic venous insufficiency Obstructive sleep apnea (Unknown) GERD (gastroesophageal reflux disease) (Unknown) Allergy (Unknown) Restless leg syndrome (2014) Anxiety (1989) Shoulder pain (Unknown) Foot pain (2003) Chronic back pain (Unknown) Vertigo (1979) Painful menstrual periods (Unknown) Heavy menses (Unknown) IBS (irritable bowel syndrome) (1985) Surgical History 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) Hx of sinus surgery (2011) History of removal of laparoscopic gastric banding device (2014) Hx of laparoscopic gastric banding (2011) Family History Grandmother Cancer Mental health problem Mother Age: 76 Mental health disorder Sister Age: 58 Heart disease Hypertension High cholesterol Mental health problem Asthma COPD (chronic obstructive pulmonary disease) Social History household members: spouse and family Smoking Status: Current every day smoker Tobacco: How many years used: 10 second hand exposure: No alcohol intake: current substance use type: does not use Current Medications Current Medications Medications: Home Medications baclofen 20 mg tablet 20 mg PO TID PRN Muscle Spasm 7 days #20 tabs 08/14/21 [Rx Confirmed 10/19/24] escitalopram oxalate 20 mg tablet 20 mg PO DAILY #90 tabs 05/13/23 [Rx Confirmed 10/19/24] clonazepam 0.5 mg tablet 0.5 mg PO BID PRN Anxiety #60 tabs 07/08/23 [Rx Confirmed 10/19/24] dicyclomine 10 mg capsule 10 mg PO 4XD PRN IBS 07/09/23 [History Confirmed 10/19/24] levothyroxine 75 mcg tablet 75 mcg PO DAILY Hypothyroidism 07/09/23 [History Confirmed 10/19/24] ondansetron HCl 8 mg tablet 8 mg PO Q8HR PRN Nausea And Vomiting 07/09/23 [History Confirmed 10/19/24] estradiol 0.5 mg tablet 0.5 mg PO DAILY Hormone replacement therapy #90 tabs 03/12/24 [Rx Confirmed 10/19/24] progesterone micronized 100 mg capsule (Prometrium) 100 mg PO QAM Hormone replacement #90 caps 03/12/24 [Rx Confirmed 10/19/24] albuterol sulfate 90 mcg/actuation aerosol inhaler 2 puff inhalation Q4H PRN wheezing 08/21/24 [History Confirmed 10/19/24] hydrochlorothiazide 25 mg tablet 25 mg PO DAILY 08/21/24 [History Confirmed 10/19/24] hydroxyzine HCl 50 mg tablet 50 mg PO Q6H PRN anxiety 08/21/24 [History Confirmed 10/19/24] propranolol 20 mg tablet 20 mg PO 3XD PRN Anxiety 30 days #60 tabs 09/15/24 [Rx Confirmed 10/19/24] Visit Medications (administered) Generic Name Dose Route Start Last Admin Trade Name Freq PRN Reason Stop Dose Admin Aspirin 81 mg 10/13/24 09:00 10/22/24 09:42 Aspirin Ec 81 Mg Tablet PO Not Given DAILY MIMI Atorvastatin Calcium 80 mg 10/12/24 21:00 10/21/24 19:51 Atorvastatin 20 Mg Tablet PO 80 mg BEDTIME MIMI Administration Baclofen 20 mg 10/12/24 17:17 10/20/24 21:36 Baclofen 10 Mg Tablet PO 20 mg TID PRN Administration Muscle Spasm Clonazepam 0.5 mg 10/12/24 17:17 10/20/24 15:31 Clonazepam 0.5 Mg Tablet PO 0.5 mg BID PRN Administration Anxiety Docusate Sodium 100 mg 10/15/24 15:30 10/22/24 09:42 Docusate 100 Mg Capsule PO Not Given BID [facility] Escitalopram Oxalate 20 mg 10/13/24 09:00 10/22/24 09:42 Escitalopram 10 Mg Tablet PO Not Given DAILY MIMI Estradiol 0.5 mg 10/13/24 09:00 10/22/24 09:43 Estradiol 1 Mg Tablet PO Not Given DAILY MIMI Folic Acid 1 mg 10/13/24 09:00 10/22/24 09:43 Folic Acid 1 Mg Tablet PO Not Given DAILY MIMI Gabapentin 300 mg 10/15/24 21:00 10/22/24 09:43 Gabapentin 300 Mg Capsule PO Not Given BID MIMI Haloperidol 2 mg 10/12/24 18:08 10/22/24 11:16 Haloperidol 5 Mg/Ml Vial IV 2 mg Q1HR PRN Administration Hallucinations Heparin Sodium (Porcine) 5,000 unit 10/20/24 09:00 10/22/24 09:43 Heparin 5,000 Unit/Ml Vial SUBCUT Not Given BID MIMI Hydromorphone HCl 0.5 mg 10/14/24 18:31 10/16/24 18:44 Hydromorphone 0.5 Mg Inj IV 0.5 mg Q2H PRN Administration Pain, Severe (7-10) Hydromorphone HCl 2 mg 10/15/24 17:15 10/22/24 00:05 Hydromorphone 2 Mg Tablet PO 2 mg Q3H PRN Administration Pain, Severe (7-10) Piperacillin Sod/Tazobactam 100 mls @ 25 mls/hr 10/22/24 08:45 10/22/24 13:43 Sod 3.375 gm/ Sodium Chloride IV Infused Q8H MIMI Infusion Dextrose/Sodium Chloride 1,000 mls @ 250 mls/hr 10/22/24 11:30 10/22/24 12:24 Dextrose 5%-0.9% Ns IV 250 mls/hr CONT MIMI Administration NOREPINEPHRINE BITARTRATE/D5W 4 mg in 250 mls @ 15.598 mls/hr 10/22/24 11:42 10/22/24 14:10 Levophed IV 0.04 mcg/kg/min TITRATE MIMI 6.239 mls/hr Titration Protocol 0.1 MCG/KG/MIN Fentanyl 1,000 mcg/ Dextrose 250 mls @ 7.279 mls/hr 10/22/24 12:45 10/22/24 13:05 IV 0.7 mcg/kg/hr TITRATE MIMI 7.279 mls/hr Administration Protocol 0.7 MCG/KG/HR Propofol 1,000 mg in 100 mls @ 1.248 mls/hr 10/22/24 12:45 10/22/24 13:10 Diprivan IV 30 mcg/kg/min TITRATE MIMI 7.487 mls/hr Titration Protocol 5 MCG/KG/MIN Vasopressin 40 unit/ Sodium 102 mls @ 4.5 mls/hr 10/22/24 13:48 10/22/24 14:12 Chloride IV 4.5 mls/hr CONT MIMI Administration Phenylephrine HCl 20,000 mcg/ 250 mls @ 7.799 mls/hr 10/22/24 14:00 10/22/24 14:13 Dextrose IV 0.25 mcg/kg/min TITRATE MIMI 7.799 mls/hr Administration Protocol 0.25 MCG/KG/MIN Levothyroxine Sodium 75 mcg 10/13/24 06:00 10/22/24 05:55 Levothyroxine 75 Mcg Tablet PO 75 mcg DAILY@0600 MIMI Administration Multivitamins 1 tab 10/13/24 09:00 10/22/24 09:43 Multivitamin 1 Tablet PO Not Given DAILY [facility] Nicotine 14 mg 10/13/24 09:00 10/22/24 09:43 Nicotine 14 Patch TOP Not Given DAILY [facility] Ondansetron HCl 4 mg 10/12/24 18:08 10/21/24 23:25 Ondansetron 4 Mg/2 Ml Inj IV 4 mg Q6HR PRN Administration Nausea And Vomiting Polyethylene Glycol 17 gm 10/15/24 15:30 10/22/24 09:43 Polyethylene Glycol 3350 17 Gm Powd.Pack PO Not Given DAILY [facility] Progesterone 100 mg 10/13/24 09:00 10/22/24 09:43 Progesterone, Micronized 100 Mg Capsule PO Not Given DAILY [facility] Propranolol HCl 20 mg 10/12/24 17:17 10/17/24 09:35 Propranolol 10 Mg Tablet PO 20 mg TID PRN Administration Anxiety Sennosides 8.6 mg 10/15/24 15:27 10/15/24 15:34 Sennosides 8.6 Mg Tablet PO 8.6 mg BEDTIME PRN Administration Constipation Sodium Chloride 10 ml 10/12/24 21:00 10/22/24 09:43 Sodium Chloride 0.9% Flush IV Not Given BID MIMI Sodium Chloride 10 ml 10/12/24 18:21 10/13/24 01:29 Sodium Chloride 0.9% Flush IV 10 ml PRN PRN Administration Flush Thiamine HCl 100 mg 10/15/24 09:00 10/22/24 09:43 Thiamine 100 Mg Tablet PO Not Given DAILY [facility] Exam Vital Signs (past 8 hours): - 10/22/24 08:00 10/22/24 08:42 10/22/24 08:42 Temperature 98.2 F Pulse Rate 122 H Respiratory Rate 20 Blood Pressure 76/34 L Pulse Oximetry 96 95 Oxygen Delivery Method Nasal Cannula Nasal Cannula Oxygen Flow Rate 4 5 Fraction of Inspired Oxygen 10/22/24 08:42 10/22/24 09:18 10/22/24 09:47 Temperature 98.2 F 98.9 F 98.8 F Pulse Rate 120 H 120 H 121 H Respiratory Rate 22 20 20 Blood Pressure 76/34 L 80/43 L 87/49 L Pulse Oximetry 94 95 95 Oxygen Delivery Method Oxygen Flow Rate 5 5 5 Fraction of Inspired Oxygen 10/22/24 10:19 10/22/24 10:45 10/22/24 11:00 Temperature 98.2 F 98.6 F Pulse Rate 118 H 121 H Respiratory Rate 20 22 Blood Pressure 72/40 L 72/43 L Pulse Oximetry 96 94 95 Oxygen Delivery Method Oximask Oxygen Flow Rate 10 5 7 Fraction of Inspired Oxygen 10/22/24 11:29 10/22/24 12:00 10/22/24 12:00 Temperature 98.4 F 98.4 F 98.5 F Pulse Rate 123 H 119 H 123 H Respiratory Rate 22 22 22 Blood Pressure 65/44 L 74/44 L 74/32 L Pulse Oximetry 95 95 85 L Oxygen Delivery Method Oxygen Flow Rate 7 7 15 Fraction of Inspired Oxygen 10/22/24 12:35 10/22/24 12:39 10/22/24 12:39 Temperature Pulse Rate 138 H 128 H 144 H Respiratory Rate Blood Pressure 92/66 106/58 L 89/50 L Pulse Oximetry 86 L 82 L 84 L Oxygen Delivery Method Oxygen Flow Rate 15 15 15 Fraction of Inspired Oxygen 10/22/24 12:40 10/22/24 12:41 10/22/24 12:43 Temperature Pulse Rate 144 H 150 H 140 H Respiratory Rate Blood Pressure 93/54 L 93/54 L 82/52 L Pulse Oximetry 99 99 Oxygen Delivery Method Oxygen Flow Rate Fraction of Inspired Oxygen 10/22/24 12:46 10/22/24 12:48 10/22/24 13:00 Temperature Pulse Rate 140 H 141 H 152 H Respiratory Rate Blood Pressure 97/51 L 98/50 L 115/59 L Pulse Oximetry 93 Oxygen Delivery Method Oxygen Flow Rate Fraction of Inspired Oxygen 100 10/22/24 13:15 10/22/24 14:04 Temperature Pulse Rate 155 H Respiratory Rate Blood Pressure 122/59 L 115/53 L Pulse Oximetry Oxygen Delivery Method Oxygen Flow Rate Fraction of Inspired Oxygen Fraction of Inspired Oxygen 100 Oxygen Delivery Method Oximask Oxygen Flow Rate 15 Objective Labs 10/21/24 07:27 10/22/24 06:20 Labs: Laboratory Results - last 24 hr 10/22/24 10/22/24 06:20 10:10 Sodium 133 L Potassium 3.7 Chloride 113 H Carbon Dioxide 13 L BUN 15 Creatinine 1.70 H Estimated GFR 36 L BUN/Creatinine Ratio 8.8 Glucose 143 H Calcium 7.0 L Magnesium 1.9 Urine Color Brown Urine Appearance Clear Urine pH 5.5 Ur Specific [place] 1.025 Urine Protein 1+ H Urine Glucose (UA) Trace H Urine Ketones Negative Urine Occult Blood 1+ H Urine Nitrate Positive H Urine Bilirubin 2+ H Ur Bilirubin Confirm Positive H Urine Urobilinogen 2.0 H Ur Leukocyte Esterase 1+ H Urine RBC 1-5/hpf Urine WBC 5-10/hpf H Ur Squamous Epith Cells 1-5 /hpf Urine Bacteria Moderate (10-30) H Ur Culture Indicated? Specimen cultured Vol Urine Centrifuged 10ml (spun) Assessment & Plan Time-Based Coding :: [TOTAL MINUTES] spent with patient and on the chart (including review of chart, obtaining history, exam, reviewing outside data, placing orders, documenting exam and treatment plan, and counseling patient) on [DATE].
[2024-10-22 14:50] LABS: Mean Corpuscular HGB Conc 33.4 % (30-36); Mean Corpuscular Hemoglobin 29.2 PG (26-34); Mean Corpuscular Volume 87.6 fL (80-100); Platelet Count 259 X10^3/uL (150-400); Red Blood Cell Count 2.33 X10^6/uL (4.0-5.2)
[2024-10-22 15:02] LABS: Add Manual Diff / Slide Review YES
[2024-10-22 15:03] LABS: Hemoglobin 6.8 g/dL (12.0-16.0)
[2024-10-22 15:04] LABS: Hematocrit 20.4 % (36-46)
[2024-10-22 15:06] LABS: Neutrophils Absolute Manual 14280 /uL (3000-5900); Nucleated Red Blood Cells 1 #/Diff; RBC Morphology Normal Morphology; Total Cells Counted 100
[2024-10-22 15:07] LABS: Platelet Estimate Adequate on smear
--- NOTE | 2024-10-22 15:12 | RT ---
Called to bedside for ALOC pt, pt transfered to ICU and pt bagged with 100% fio2 and intubated by MD without incident pt orally suctioned for large coffee ground in appereance secretions. Etco2 pos color change, et tube secured and good color change. Bilat breathsounds noted and pt placed on vent without incident. MD at bedside. Pt suctioned via et tube for coffee ground thin secretions.
[2024-10-22 15:17] LABS: Alanine Aminotransferase 616 IU/L (<35); Albumin 1.4 g/dL (3.5-5.0); Albumin Globulin Ratio 0.6 (1.0-2.8); Alkaline Phosphatase 312 U/L (38-126); BUN Creatinine Ratio 10.1 (6-22); Bilirubin Total 3.1 mg/dL (0.2-1.3); Blood Urea Nitrogen 16 mg/dL (7-17); Carbon Dioxide 11 mmol/L (22-32); Chloride 111 mmol/L (98-107); Estimated Glomerular Filt Rate 39 mL/min (>60); Globulin 2.5 g/dL (1.7-4.1); Glucose 296 mg/dL (70-99); HEMOLYSIS < 15 (0-50); Magnesium 1.6 mg/dL (1.6-2.3); Phosphorous 1.9 mg/dL (2.5-4.5); Potassium 3.4 mmol/L (3.4-5.1); Sodium 131 mmol/L (137-145); Total Protein 3.9 g/dL (6.3-8.2)
[2024-10-22 15:23] LABS: Aspartate Aminotransferase 1389 IU/L (14-36)
[2024-10-22 15:25] LABS: Calcium 6.4 mg/dL (8.4-10.2)
--- NOTE | 2024-10-22 15:25 | DIET.CONS2 ---
Dietary Inpatient Consultation Note Admission Date: 10/12/2024 16:27 54y F placed on ventilator today. Pt malnourished secondary to failure to thrive and etoh misuse. Pt received some IV and tablet thiamine as well as a MVI over past few days, inconsistently due to pt refusal and altered mental state. Pts POs have been 0-50% with some ONS accepted, pt currently receiving 5% dextrose providing 5g dextrose per 100mL IVF. Concern for coffee ground like gastric fluids when intubated. Recc initiation of enteral nutrition support when appropriate per providers, pt at risk for refeeding syndrome. Tube Feed Reccs: Continuous pump-assisted enteral nutrition via OG Formula: Pivot 1.5 Starting Rate: 10mL/h for first 24h Advancement: 10mL q12h as tolerated Goal Rate: 30mL/h Free Water Flushes: 120mL q4h if no IVF Goal Feeding rate provides 1080kcals (26kcal/kg), 68g PRO (1.6g/kg), 124g CHO Feed water + Free water provides 1,260mL (30mL/kg) Please continue thiamine and check refeeding labs bid and replete per protocol. HOB >30degrees at all times Diet: 10/22/24 15:19 NPO Diet Diet Modifications: on vent NPO Type: Strict Nutrition Percent Meal Consumed 0% 10/21/24 18:00 Percent Meal Consumed 25% 10/20/24 18:00 Electronically Signed by: Gabrielle Myrick 10/22/24 15:25 Clinical Dietitian [address] [id number]
--- NOTE | 2024-10-22 15:35 | PM.PROC.1 ---
Procedures Date/Time Date of procedure: 10/22/24 Time of procedure: 12:40 Intubation Time out performed: No (Pt desat, not responsive, aspirated. Hospitalist present, req intubation. ) Sedative: other (Propofol) Mg given: 100 Paralytic: rocuronium Mg given: 50 Laryngoscope: other (Glidescope with 3 low-pro) ET tube size: 7.5 ET tube uncuffed: No Tube secured depth (cm): 21 (at teeth) Tube secured location: teeth Tube placement confirmation: visualized tube passing through cords, equal breath sounds bilaterally, no breath sounds over epigastrium and confirmation by capnometry (and CXR) Patient tolerated procedure: well Intubation complications: none
--- NOTE | 2024-10-22 15:38 | PM.PROC.1 ---
Procedures Date/Time Date of procedure: 10/22/24 Time of procedure: 12:55 Arterial Line Time out performed: No (Pt intubated, hospitalist requested for hypotension, pressors) Technique used: other (U/S - very narrow artery) Post-Procedure: dry sterile dressing placed Patient tolerated procedure: Well Complications: none Site: left and radial
[2024-10-22] MEDS: NOREPINEPHRINE BITARTRATE/D5W 4 MG/250 ML PLAST..BAG 62.391 MG IV (16:10)
[2024-10-22] MEDS: HYDROCORTISONE 100 MG/2 ML VIAL IV ×2 (16:18→23:22)
--- NOTE | 2024-10-22 16:47 | PC.NURSE ---
Approximately 12:00 called to assist in IV placement in pt's room on ACU. Pt uncooperative with care, pulling off oximask, tugging at lines. Pt educated on reasons for medical devices and care being provided. Pt hypotensive, skin pale, pulse oximetry 88% on 15L oximask. Oximask replaced with NRB at 15L, pulse oximetry 90%. Pt alert to self, vague situation. Unable to obtain additional access. Per provider, norepinephrine started while ICU being cleaned. Provider at bedside, administrative nursing supervisor at bedside. Pt transferred to room 231 with RT and two RNS and transport monitor, O2, respiratory status declining on way to room, bradypnea, oxygenation saturation low 80's. 1233 code blue called to expedite intubation per MD. Pt intubated with + CO2 color change at 1240. New orders received. Arterial line and central placed by anesthesia, see notes. [address] Finch on monitor, prompted RN to change ventilator settings to PEEP of 8, FiO2 80%, VT 300 and rate of 18, RT immediately updated of changes made. 1425 OG to LIS, coffee ground in color, hemacult positive, provider Dr. Polk notified. 1600 pt continues to not respond to stimuli, provider notified. Sedation paused. No pupilary reaction, no response to painful stimuli. 1650 new orders received. Approx. [address], pt turning head in CT scan, not following commands but opening eyes spontaneously. Back to room 231, pt able to open eyes, shake head yes and no, unable to move extremities when prompted to. Pt shakes head when asked if pain is present. Care ongoing.
--- NOTE | 2024-10-22 17:11 | DI.CT.S_ITS ---
PROCEDURE: CT CHEST ABD PEL WO CON INDICATIONS: septic shock, GAVINO r/o obstruction, probable aspiration TECHNIQUE: After the administration of oral contrast, 5 mm thick sections acquired from the lung apices to the symphysis pubis. 5 mm thick coronal and sagittal reformats acquired, with additional 7 mm coronal MIP reformats through the lungs. For radiation dose reduction, the following was used: automated exposure control, adjustment of mA and/or kV according to patient size. COMPARISON: [facility], CT, CT ANGIO CHEST PE PROTOCOL, 12/02/2021, 16:30. [facility], CR, XR CHEST 1V, 10/22/2024, 12:38. [facility], CT, CT ABDOMEN PELVIS W CON, 01/03/2024, 12:01. FINDINGS: Image quality: Diagnostic. CHEST: Lower Neck: No enlarged lymph nodes. Thyroid: No thyroid nodules which require sonographic follow up, per consensus guidelines. Axillae: No enlarged lymph nodes. Chest Wall: Unremarkable. Bones: Unremarkable. Lungs and Pleura: No pneumothorax or pleural effusions. Bilateral patchy and confluent pulmonary opacities are present within the lungs bilaterally. Most prominent consolidations are present within the bases. Heart: Heart size is normal. Minimal pericardial effusion. Thoracic Vessels: The aorta and pulmonary arteries demonstrate normal size. Mediastinum and Mattie: No enlarged lymph nodes. Endotracheal and nasogastric tubes are present. Endotracheal tube is approximately 1 cm superior to the level of the марина. Esophagus: No wall thickening. No hiatal hernia. ABDOMEN: Liver: No solid mass. Gallbladder: Gallbladder is somewhat contracted with hyperdensity in the lumen. Biliary ducts: No biliary dilation. Pancreas: No ductal dilation. Spleen: Size is within normal limits. Adrenal Glands: No adrenal nodules. Kidneys and Ureters: No hydronephrosis. No solid mass. No complex renal cystic lesion which requires follow up. Stomach and Bowel: There is significant thickening within the right colon. Additional scattered areas of colonic thickening are present within the transverse and left colon. Peritoneum: Scattered areas fluid predominantly within the dependent pelvis. Ventral Wall: No hernia. Abdominal Nodes: No retroperitoneal or mesenteric adenopathy by size criteria. Vessels: Aorta and inferior vena cava are normal in size. PELVIS: Pelvic Organs: Unremarkable. Bladder: Limited evaluation secondary to collapsed with a Sampson catheter. Pelvic Nodes: No enlarged lymph nodes. Miscellaneous: No inguinal hernias are seen. Bones: Unchanged compression deformity at L3. IMPRESSION: Significant focal and confluent opacities within the lungs bilaterally most consistent with pneumonia. Recommend interval follow-up to document resolution. Significant thickening within the right colon with thickening although less prominent in the transverse and left colon most consistent with colitis. This is suspected to be related to infection or inflammation. Ischemic cannot be definitively excluded. Dictated by: Leyla Ohara M.D. on 10/22/2024 at 18:04 Approved by: Leyla Ohara M.D. on 10/22/2024 at 18:08
--- NOTE | 2024-10-22 17:11 | DI.CT.S_ITS ---
PROCEDURE: CT HEAD/BRAIN WO CON INDICATIONS: altered mental status, r/o hemorrhage, recent CVA TECHNIQUE: Noncontrast 4.5 mm thick angled axial sections acquired from the foramen magnum to the vertex, with coronal and sagittal reformats. For radiation dose reduction, the following was used: automated exposure control, adjustment of mA and/or kV according to patient size. COMPARISON: [facility], CT, CT HEAD/BRAIN WO CON, 09/12/2024, 8:01. FINDINGS: Image quality: Diagnostic. CSF spaces: Basal cisterns are patent. No extra-axial fluid collections. Ventricles are normal in size and shape. Brain: No midline shift. No intracranial mass effect or hemorrhage. Deshpande-white matter interface is normal. Skull and face: Calvarium and visualized facial bones are intact, without suspicious lesions. Sinuses: Visualized sinuses and mastoids are clear. IMPRESSION: No acute intracranial pathology. Dictated by: Leyla Ohara M.D. on 10/22/2024 at 18:03 Approved by: Leyla Ohara M.D. on 10/22/2024 at 18:04
[2024-10-22] MEDS: PANTOPRAZOLE 40 MG VIAL IV ×2 (18:17→20:47)
--- NOTE | 2024-10-22 18:28 | PM.PROC.1 ---
Procedures Date/Time Date of procedure: 10/22/24 Time of procedure: 13:10 Central Line Placement Time out performed: No (Emergent, code called, hospitalist present and requests) Patient placed on monitor/pulse ox: Yes MD prep: mask, gown, gloves and other (Cap) Central line prep: Chlorhexidine scrub and sterile drapes applied Local anesthesia used: other anesthetic (Pt sedated on propofol and fentanyl infusions) Ultrasound used for placement: Yes Central line lumen inserted: triple (20-cm CVC inserted into R IJ, first attempt. Line adjusted to 14 cm and sutured x4. No dysrhythmias. US confirms catheter within vein; CXR shows tip in right atrium. ) Post procedure: sutured in place, good blood return, all ports aspirated, flushed, capped and sterile dressing applied Post procedure x-ray: tip of catheter in good position and no pneumothorax seen Patient tolerated procedure: well
[2024-10-22 18:36] LABS: Lactate (Lactic Acid) 2.2 mmol/L (0.7-2.1)
[2024-10-22 18:54] LABS: Fibrinogen 335 mg/dL (238-498)
--- NOTE | 2024-10-22 19:47 | PM.PN.1 ---
Subjective Subjective Interval history: Summary: She is a 54-year-old female who presented with weakness and electrolyte abnormalities in context of severe alcohol use disorder. She was also noted to have a subacute infarct and stroke. This morning patient became more hypotensive, she was hallucinating, lethargic. Please see event note for additional information. Since event note patient continued to decline, was still aggressively refusing interventions, pushing away staff. We were unable to get labs initially. Patient then had acute decompensation with desaturations in the 80s, she was intubated for airway protection and resuscitation given she is full code and her surrogate decision maker is also admitted to the hospital unable to make informed decisions at this time. Patient eventually requiring 3 pressors, tele-precision agriculture technician consulted. During intubation she appeared to have previously aspirated based on the appearance of her airway. Her sedation was weaned and she was minimally responsive initially, performed CT head, abd, pelvis for further evaluation. CT head unremarkable. Chest CT showed probable PNA but also a colitis. she refused labs/cbc earlier, once returned Hg was 6.8. Added fibrinogen to rule out DIC. Coffee ground output was guaiac positive started on IV protonix. AST and ALT markedly elevated most probably due to shock. Exam Vital Signs (past 8 hours): - 10/22/24 12:00 10/22/24 12:00 10/22/24 12:33 Temperature 98.4 F 98.5 F Pulse Rate 119 H 123 H 140 H Respiratory Rate 22 22 18 Blood Pressure 74/44 L 74/32 L Pulse Oximetry 95 85 L Oxygen Flow Rate 7 15 Fraction of Inspired Oxygen 10/22/24 12:35 10/22/24 12:39 10/22/24 12:39 Temperature Pulse Rate 138 H 128 H 144 H Respiratory Rate Blood Pressure 92/66 106/58 L 89/50 L Pulse Oximetry 86 L 82 L 84 L Oxygen Flow Rate 15 15 15 Fraction of Inspired Oxygen 10/22/24 12:40 10/22/24 12:41 10/22/24 12:43 Temperature Pulse Rate 144 H 150 H 140 H Respiratory Rate Blood Pressure 93/54 L 93/54 L 82/52 L Pulse Oximetry 99 99 Oxygen Flow Rate Fraction of Inspired Oxygen 10/22/24 12:46 10/22/24 12:48 10/22/24 13:00 Temperature Pulse Rate 140 H 141 H 152 H Respiratory Rate Blood Pressure 97/51 L 98/50 L 115/59 L Pulse Oximetry 93 Oxygen Flow Rate Fraction of Inspired Oxygen 100 10/22/24 13:15 10/22/24 13:45 10/22/24 13:47 Temperature Pulse Rate 144 H Respiratory Rate 15 Blood Pressure 122/59 L 121/57 L Pulse Oximetry 100 Oxygen Flow Rate Fraction of Inspired Oxygen 10/22/24 13:47 10/22/24 14:00 10/22/24 14:00 Temperature Pulse Rate 144 H 144 H Respiratory Rate 15 15 Blood Pressure 117/52 L Pulse Oximetry 100 95 Oxygen Flow Rate Fraction of Inspired Oxygen 10/22/24 14:04 10/22/24 14:06 10/22/24 14:06 Temperature Pulse Rate 155 H 141 H Respiratory Rate 15 Blood Pressure 115/53 L 103/52 L Pulse Oximetry 84 L Oxygen Flow Rate Fraction of Inspired Oxygen 10/22/24 14:15 10/22/24 14:15 10/22/24 14:30 Temperature Pulse Rate 141 H 138 H Respiratory Rate 16 18 Blood Pressure 94/50 L Pulse Oximetry 100 100 Oxygen Flow Rate Fraction of Inspired Oxygen 10/22/24 14:30 10/22/24 14:45 10/22/24 14:45 Temperature Pulse Rate 137 H Respiratory Rate 18 Blood Pressure 102/58 L 96/59 L Pulse Oximetry 100 Oxygen Flow Rate Fraction of Inspired Oxygen 10/22/24 14:58 10/22/24 14:58 10/22/24 15:00 Temperature Pulse Rate 133 H Respiratory Rate 18 Blood Pressure 87/56 L 88/53 L Pulse Oximetry 100 Oxygen Flow Rate Fraction of Inspired Oxygen 10/22/24 15:00 10/22/24 15:16 10/22/24 15:16 Temperature Pulse Rate 133 H 134 H Respiratory Rate 18 18 Blood Pressure 102/59 L Pulse Oximetry 100 98 Oxygen Flow Rate Fraction of Inspired Oxygen 10/22/24 15:30 10/22/24 15:30 10/22/24 15:45 Temperature Pulse Rate 133 H Respiratory Rate 18 Blood Pressure 95/54 L 94/51 L Pulse Oximetry 96 Oxygen Flow Rate Fraction of Inspired Oxygen 10/22/24 15:45 10/22/24 16:00 10/22/24 16:00 Temperature Pulse Rate 133 H 133 H Respiratory Rate 18 19 Blood Pressure 98/52 L Pulse Oximetry 97 96 Oxygen Flow Rate Fraction of Inspired Oxygen 10/22/24 16:00 10/22/24 16:12 10/22/24 16:15 Temperature 97.8 F Pulse Rate 144 H Respiratory Rate Blood Pressure 94/49 L Pulse Oximetry Oxygen Flow Rate Fraction of Inspired Oxygen 10/22/24 16:15 10/22/24 16:15 10/22/24 16:30 Temperature Pulse Rate 133 H 133 H Respiratory Rate 19 20 Blood Pressure 99/56 L Pulse Oximetry 97 97 Oxygen Flow Rate Fraction of Inspired Oxygen 10/22/24 16:30 10/22/24 16:45 10/22/24 16:45 Temperature Pulse Rate 130 H Respiratory Rate 20 Blood Pressure 101/57 L 95/62 Pulse Oximetry 97 Oxygen Flow Rate Fraction of Inspired Oxygen 10/22/24 16:50 10/22/24 16:50 10/22/24 17:00 Temperature Pulse Rate 130 H Respiratory Rate 18 Blood Pressure 93/48 L 95/50 L Pulse Oximetry Oxygen Flow Rate Fraction of Inspired Oxygen 10/22/24 17:00 10/22/24 17:00 10/22/24 17:39 Temperature Pulse Rate 130 H 130 H Respiratory Rate 21 18 Blood Pressure 90/57 L Pulse Oximetry 98 98 Oxygen Flow Rate Fraction of Inspired Oxygen 10/22/24 17:39 10/22/24 17:40 10/22/24 17:45 Temperature Pulse Rate 130 H Respiratory Rate 20 Blood Pressure 97/66 104/58 L Pulse Oximetry 98 Oxygen Flow Rate Fraction of Inspired Oxygen 10/22/24 18:00 10/22/24 18:10 10/22/24 18:15 Temperature Pulse Rate 128 H 128 H Respiratory Rate 21 21 Blood Pressure 95/55 L Pulse Oximetry 98 98 Oxygen Flow Rate Fraction of Inspired Oxygen 10/22/24 18:20 10/22/24 18:30 10/22/24 18:45 Temperature Pulse Rate 128 H 128 H Respiratory Rate 21 21 Blood Pressure 86/50 L Pulse Oximetry 99 99 Oxygen Flow Rate Fraction of Inspired Oxygen 10/22/24 18:55 10/22/24 19:00 10/22/24 19:15 Temperature Pulse Rate 128 H 126 H Respiratory Rate 21 20 Blood Pressure 90/52 L Pulse Oximetry 99 99 Oxygen Flow Rate Fraction of Inspired Oxygen 10/22/24 19:29 10/22/24 19:30 Temperature 98.3 F Pulse Rate 127 H 127 H Respiratory Rate 18 24 Blood Pressure 97/66 Pulse Oximetry 97 Oxygen Flow Rate Fraction of Inspired Oxygen Fraction of Inspired Oxygen 100 Oxygen Delivery Method Oximask Oxygen Flow Rate 15 Narrative Exam Narrative: She is cachectic, and frail. Now intubated and sedated. Diffuse scattered rhonchi tachycardic, regular rhythm, no m/r/g Abdomen is soft, non distended. Extremities are free of edema. Objective Labs 10/22/24 14:35 10/22/24 14:35 Labs: Laboratory Results - last 24 hr 10/22/24 10/22/24 10/22/24 06:20 10:10 14:35 WBC 17.0 H RBC 2.33 L Hgb 6.8 L* Hct 20.4 L* MCV 87.6 MCH 29.2 MCHC 33.4 RDW 18.0 H Plt Count 259 Neut % (Auto) Not Reportable Lymph % (Auto) Not Reportable Obion % (Auto) Not Reportable Eos % (Auto) Not Reportable Baso % (Auto) Not Reportable Lymph # (Auto) Not Reportable [place] # (Auto) Not Reportable Baso # (Auto) Not Reportable Total Counted 100 Seg Neutrophils % 75.0 H Band Neutrophils % 9.0 H Lymphocytes % (Manual) 14.0 L Monocytes % (Manual) 2.0 Neutrophils # (Manual) 92457 H Nucleated RBCs 1 H Platelet Estimate Adequate on smear RBC Morphology Normal morphology Fibrinogen ABG Sample Site ABG pH ABG pCO2 ABG pO2 ABG HCO3 ABG Total CO2 ABG O2 Saturation ABG Base Excess FiO2 % Sodium 133 L 131 L Potassium 3.7 3.4 Chloride 113 H 111 H Carbon Dioxide 13 L 11 L BUN 15 16 Creatinine 1.70 H 1.59 H Estimated GFR 36 L 39 L BUN/Creatinine Ratio 8.8 10.1 Glucose 143 H 296 H D Lactate Calcium 7.0 L 6.4 L* Phosphorus 1.9 L Magnesium 1.9 1.6 Total Bilirubin 3.1 H AST 1389 H ALT 616 H Alkaline Phosphatase 312 H D Total Protein 3.9 L Albumin 1.4 L Globulin 2.5 Albumin/Globulin Ratio 0.6 L Urine Color Brown Urine Appearance Clear Urine pH 5.5 Ur Specific Stonewall 1.025 Urine Protein 1+ H Urine Glucose (UA) Trace H Urine Ketones Negative Urine Occult Blood 1+ H Urine Nitrate Positive H Urine Bilirubin 2+ H Ur Bilirubin Confirm Positive H Urine Urobilinogen 2.0 H Ur Leukocyte Esterase 1+ H Urine RBC 1-5/hpf Urine WBC 5-10/hpf H Ur Squamous Epith Cells 1-5 /hpf Urine Bacteria Moderate (10-30) H Ur Culture Indicated? Specimen cultured Vol Urine Centrifuged 10ml (spun) Blood Type Antibody Screen Crossmatch 10/22/24 10/22/24 15:26 18:00 WBC RBC Hgb Hct MCV MCH MCHC RDW Plt Count Neut % (Auto) Lymph % (Auto) [place] % (Auto) Eos % (Auto) Baso % (Auto) Lymph # (Auto) [place] # (Auto) Baso # (Auto) Total Counted Seg Neutrophils % Band Neutrophils % Lymphocytes % (Manual) Monocytes % (Manual) Neutrophils # (Manual) Nucleated RBCs Platelet Estimate RBC Morphology Fibrinogen 335 ABG Sample Site Arterial line ABG pH 7.17 L* ABG pCO2 33.3 L ABG pO2 93 ABG HCO3 12 L ABG Total CO2 12 L ABG O2 Saturation 95 ABG Base Excess -15.2 L FiO2 % 80 Sodium Potassium Chloride Carbon Dioxide BUN Creatinine Estimated GFR BUN/Creatinine Ratio Glucose Lactate 2.2 H Calcium Phosphorus Magnesium Total Bilirubin AST ALT Alkaline Phosphatase Total Protein Albumin Globulin Albumin/Globulin Ratio Urine Color Urine Appearance Urine pH Ur Specific Stonewall Urine Protein Urine Glucose (UA) Urine Ketones Urine Occult Blood Urine Nitrate Urine Bilirubin Ur Bilirubin Confirm Urine Urobilinogen Ur Leukocyte Esterase Urine RBC Urine WBC Ur Squamous Epith Cells Urine Bacteria Ur Culture Indicated? Vol Urine Centrifuged Blood Type A Positive Antibody Screen Negative Crossmatch See Detail [facility] Medical History Amenorrhea Neuropathy Chronic venous insufficiency Obstructive sleep apnea (Unknown) GERD (gastroesophageal reflux disease) (Unknown) Allergy (Unknown) Restless leg syndrome (2014) Anxiety (1989) Shoulder pain (Unknown) Foot pain (2003) Chronic back pain (Unknown) Vertigo (1979) Painful menstrual periods (Unknown) Heavy menses (Unknown) IBS (irritable bowel syndrome) (1985) Surgical History 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) Hx of sinus surgery (2011) History of removal of laparoscopic gastric banding device (2014) Hx of laparoscopic gastric banding (2011) Family History Grandmother Cancer Mental health problem Mother Age: 76 Mental health disorder Sister Age: 58 Heart disease Hypertension High cholesterol Mental health problem Asthma COPD (chronic obstructive pulmonary disease) Social History household members: spouse and family Smoking Status: Current every day smoker Tobacco: How many years used: 10 second hand exposure: No alcohol intake: current substance use type: does not use Assessment & Plan Assessment & Plan narrative: 1. Acute and subacute right frontal and possible left parietal punctate infarcts, Stable. Continue high-intensity statin therapy, aspirin. - repeat head CT 10/22 with no acute findings. 2. 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 4. Alcohol withdrawal delirium, resolved. 5. Benzodiazepine/baclofen dependence, stable. 6. Peripheral neuropathy, stable. 7. Failure to thrive/debility, active. She is on a citalopram for depression. 8. Hypokalemia, active. 9. Acute on chronic anemia, Stable. 10. Hypoglycemia, improved. NEW diagnoses 10/22 1. Septic shock, not present on admission, due to aspiration pneumonia 2. Shock liver 3. GAVINO 4. Acute metabolic encephalopathy 5. Acute on chronic anemia, possible GI bleeding. PLAN: -transferred to ICU, now intubated and sedated. Anesthesia placed ETT, central line and radial art line today. Continue full code. CT today shows bilateral pneumonia, colitis (? ischemic given shock), head CT with no hemorrhagic conversion of prior stroke. -continue empiric zosyn, follow up blood and urine cultures. UA is positive. -tele-precision agriculture technician consult for help with pressors and management, initially tachycardic to 150s on levophed, will try christopher and vaso and attempt to wean from levophed but currently on all 3. -continue IV fluids, NPO. -fibrinogen level ordered -IV protonix BID, trend h/h. Given 1 U PRBC for Hg 6.8. No schistocytes noted on smear (DIC) -elevated bili and AST/ALT likely due to shock liver / ischemia, CT abdomen without biliary dilatation. Continue to follow. Poor prognosis for patient, will need time to declare if she worsens or starts to improve after above measures. Spouse is her surrogate decision maker but he is also admitted here, unable to make informed decisions due to his current condition. I spent 95 minutes providing critical care management this patient. This excludes time spent in performing separately billed procedures. Time-Based Coding :: [TOTAL MINUTES] spent with patient and on the chart (including review of chart, obtaining history, exam, reviewing outside data, placing orders, documenting exam and treatment plan, and counseling patient) on [DATE]. Quality VTE Deep Vein Thrombosis/Pulmonary Embolism Present on Admission: No
[2024-10-22 19:56] LABS: Reflexed Lactate in 2 Hours Y
--- NOTE | 2024-10-22 20:38 | PM.ICURNDS ---
- :: This patient was seen via real time interactive two-way audiovisual telecommunication. currntly intubated, synchronous with vent, on multpl;e pressors thoguh levophed being weaned. Propofol at low dose currently
[2024-10-22] MEDS: SODIUM CHLORIDE 0.9% FLUSH 10 ML IV (20:47)
[2024-10-22] MEDS: PHENYLEPHRINE 20,000 MCG in DEXTROSE 5% IN WATER 250 ML 62.391 MCG IV (21:06)
[2024-10-22 21:42] LABS: Lactate 2HR (Lactic Acid Rflx) 2.4 mmol/L (0.7-2.1)
[2024-10-22] MEDS: CARBOXYMETHYLCELLULOSE DROPS 1 DROPS EYE-BOTH (22:32)
[2024-10-23] VITALS (104 sets, daily range): BP systolic 84–105; BP diastolic 49–70; PULSE 110–125; RESP 13–27; TEMP 36.4–37.6; O2SAT 75–100
[2024-10-23 00:29] LABS: Lactate (Lactic Acid) 2.8 mmol/L (0.7-2.1)
[2024-10-23] MEDS: PIPERACILLIN/TAZO 3.375 GM in SODIUM CHLORIDE 0.9% 100 ML IV (00:44)
[2024-10-23] MEDS: NOREPINEPHRINE BITARTRATE/D5W 4 MG/250 ML PLAST..BAG 15.598 MG IV ×2 (00:44→12:18)
[2024-10-23] MEDS: PHENYLEPHRINE 20,000 MCG in DEXTROSE 5% IN WATER 250 ML 93.587 MCG IV ×3 (01:37→07:53)
[2024-10-23 01:41] LABS: Reflexed Lactate in 2 Hours Y
[2024-10-23] MEDS: LACTATED RINGERS 1,000 ML 1000 ML IV (02:03)
[2024-10-23 02:32] LABS: MRSA (Nasal) PCR NOT DETECTED (Not Detect)
[2024-10-23 02:38] LABS: Lactate 2HR (Lactic Acid Rflx) 2.8 mmol/L (0.7-2.1)
--- NOTE | 2024-10-23 02:38 | PC.NURSE ---
Addendum entered by Carla Rocha R.N. 10/23/24 07:43: LR bolus minimally effective, only another 75ml UOP. Reported to Tele-I Dr. Finch along with critical labs Ca+ 5.9, CO2 9, Mg+ 1.4, glucose 337. Also updated MD on current vasopressor and sedation rates-see Emar and VS trends. Orders received for 2gm Ca+Cl- IV now, 2mg Ma+ sulfate IV now, 50gm 25% albumin, Non-DKA insulin infusion. ABG this am. BMP, iodized Ca+ and lactate after medications given. Bedside shift report given to [facility] RNs. Addendum entered by Carla Rocha R.N. 10/23/24 02:51: At 2100, patient woke up agitated, propofol restarted at 5mcg/kg/min but titrated up to 10mcg to sedated patient, was effective and stopped again d/t hypotension. RT decreased FIO2 to 40%, SpO2 holding at 100%. At 0015, patient woke again, agitated and reaching and hitting at EET with mitts, soft wrist restraints put on, notified NOC Hospitalist via Webex, order obtained for Non-Violent Restraints. Patient did nod that she was having pain, Fentanyl gtt restarted at 0.7mcg/kg/hr, propofol up to 10mcg/kg/min. 0145-Tele-I notified of low UOP, continued hypotension, and current rates of vasopressors and sedation. Order received for 1 liter LR bolus. Original Note: Route Agent Notes-Patient on ventilator, settings FIO2 50% TV 300 Peep 8, RR 18, SpO2 100% when good pleth shows up, fingers and toes cool. Patient was initially unresponsive, propofol and Fentanyl on stand-by. Unit PRBC started at change of shift, tolerated well. Mitts on hands. Levophed at 0.2mcg/kg/min, titrated down to 0.1mcg/kg/min. Phenylephrine titrated up to 1.5, then 2mcg/kg/min, see Emar and vital trends.
[2024-10-23 05:24] LABS: Add Manual Diff / Slide Review NO; Basophils Absolute Auto 0 /uL (0-100); Basophils Percent Auto 0.2 % (0-2); Eosinophils Absolute Auto 0 /uL (0-450); Eosinophils Percent Auto 0.1 % (2-4); Hematocrit 23.5 % (36-46); Hemoglobin 8.1 g/dL (12.0-16.0); Lymphocytes Absolute Auto 3100 /uL (1100-4500); Lymphocytes Percent Auto 16.3 % (25-40); Mean Corpuscular HGB Conc 34.7 % (30-36); Mean Corpuscular Hemoglobin 29.7 PG (26-34); Mean Corpuscular Volume 85.8 fL (80-100); Monocytes Absolute Auto 500 /uL (0-900); Monocytes Percent Auto 2.6 % (3-14); Neutrophils Absolute Auto 15600 /uL (1500-7000); Neutrophils Percent Auto 80.8 % (50-75); Platelet Count 222 X10^3/uL (150-400); Red Blood Cell Count 2.74 X10^6/uL (4.0-5.2); Red Cell Distribution Width 15.9 % (11.6-14.8); White Blood Cell Count 19.3 X10^3/uL (4.5-11.0)
[2024-10-23 05:35] LABS: BUN Creatinine Ratio 10.5 (6-22); Blood Urea Nitrogen 16 mg/dL (7-17); Chloride 108 mmol/L (98-107); Estimated Glomerular Filt Rate 41 mL/min (>60); Glucose 337 mg/dL (70-99); HEMOLYSIS 23 (0-50); Magnesium 1.4 mg/dL (1.6-2.3); Potassium 3.4 mmol/L (3.4-5.1); Sodium 126 mmol/L (137-145)
[2024-10-23 05:39] LABS: Calcium 5.9 mg/dL (8.4-10.2); Carbon Dioxide 9 mmol/L (22-32)
[2024-10-23] MEDS: HYDROCORTISONE 100 MG/2 ML VIAL IV ×3 (06:19→22:54)
[2024-10-23 06:24] LABS: Base Excess ABG -15.2 mmol/L (-2-3); Blood Gas Collection Site Arterial Line; Blood Gas Mode PRVC/PS; HCO3 ABG 12 mmol/L (23-27); Oxygen Saturation ABG 95 % (95-100); PCO2 ABG 33.3 mmHg (35-45); PEEP 8; PO2 ABG 93 mmHg (80-100); Respiratory Rate 18; TCO2 ABG 12 mmol/L (23-27); pH ABG 7.17 (7.35-7.45)
[2024-10-23] MEDS: MAGNESIUM SULFATE 2 GM/50 ML PIGGYBACK IV (06:33)
[2024-10-23] MEDS: INSULIN DRIP PREMIX 100 UNIT/100 ML PLAST..BAG 6 UNIT IV (06:43)
[2024-10-23] MEDS: ALBUMIN HUMAN 50 GM/200 ML VIAL IV (06:58)
[2024-10-23 07:40] LABS: Base Excess ABG -14.8 mmol/L (-2-3); Blood Gas Collection Site Arterial Line; Blood Gas Mode Assist Cont Ventilat; Delivery System Adult Ventilator; HCO3 ABG 10 mmol/L (23-27); Oxygen Saturation ABG 94 % (95-100); PCO2 ABG 20.7 mmHg (35-45); PEEP 8; PO2 ABG 77 mmHg (80-100); Respiratory Rate 18; TCO2 ABG 10 mmol/L (23-27)
[2024-10-23] MEDS: DEXTROSE 5%-0.9% NS 1,000 ML 75 ML IV (07:53)
[2024-10-23] MEDS: CALCIUM CHLORIDE 2,000 MG in SODIUM CHLORIDE 0.9% 100 ML 120 MG IV (08:21)
--- NOTE | 2024-10-23 09:43 | PM.PN.EICU ---
Subjective Subjective IF CAMERA ACTIVATED, patient seen via real-time interactive audiovisual communication: Camera activated Consent obtained for tele-blending line attendant care: Yes Patient Location: ICU Provider location (State): Other participants/roles: MD, RN, Pharmacist , RT Interval history: 54-year-old female with a long history of alcohol use, chronic anxiety previous admissions for accidental overdosing combining benzodiazepines with alcohol, she has been bed-bound and chair or chair bound for the past month unable to care for self. Pt presented for not been able to care for self, was not able to get out of bed for long time causing her to have multiple sores over her sacrum. Workup in the ED : MRI demonstrating small punctate CVA and frontal deep white matter and possibly right parietal cortex CTA of head and neck unremarkable echocardiogram from previous admission is also unremarkable. CT of the cervical spine is unremarkable as well. Per staff pt has been refusing care inside the hospital as well, she had an episode of aspiration today with worsening mental and resp status / hypoxia requiring intubation. She also became hypotensive requring initation of high dose of levo. Overnight: recieved 1 PRBC and 1 LR bolus This am: remains on 3 pressors ( levo 0.17, Kwadwo 2 mcg/kg/min, vaso) , oliguric despite all the volume/ bedside echo collapsible IVC, labs showing sever metabolic acidemia, low Ca but aslo low albumin. 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 Sedation with propofol and fentanyl, consider adding precedex and wean off fenatnyl as tolerated IV albumin 5% 500 ml, received 200 ml of 25% albumin, wean off levo then Kwadwo then Vaso given the sinus tach ( 110s better thatn 140s) Continue with IV stress dose hydrocortisone Received 2 grma of Ca chloride Check ABG, lactic acid, Renal panel, ionized Ca After confirming no hypocalcemia with ionized calcium recommend to give Sodium bicarb 50 meq Q1h x3 and start Bicarb ip in a sterile water at 100 ml/hr Continue braod spectrum Ab, follow resp and blood Cx, recommend adding Vanc until recent Cx is back IV insulin PPI for GI ppx Mechanical vte Hold statin and Gabapentin in the sitting of GAVINO H/O Benzodiazepine/baclofen dependence, stable. Consider giving a small dose of BZD and Baclofen daily to avoid withdrawal Current Medications Current Medications Medications: Home Medications baclofen 20 mg tablet 20 mg PO TID PRN Muscle Spasm 7 days #20 tabs 08/14/21 [Rx Confirmed 10/19/24] escitalopram oxalate 20 mg tablet 20 mg PO DAILY #90 tabs 05/13/23 [Rx Confirmed 10/19/24] clonazepam 0.5 mg tablet 0.5 mg PO BID PRN Anxiety #60 tabs 07/08/23 [Rx Confirmed 10/19/24] dicyclomine 10 mg capsule 10 mg PO 4XD PRN IBS 07/09/23 [History Confirmed 10/19/24] levothyroxine 75 mcg tablet 75 mcg PO DAILY Hypothyroidism 07/09/23 [History Confirmed 10/19/24] ondansetron HCl 8 mg tablet 8 mg PO Q8HR PRN Nausea And Vomiting 07/09/23 [History Confirmed 10/19/24] estradiol 0.5 mg tablet 0.5 mg PO DAILY Hormone replacement therapy #90 tabs 03/12/24 [Rx Confirmed 10/19/24] progesterone micronized 100 mg capsule (Prometrium) 100 mg PO QAM Hormone replacement #90 caps 03/12/24 [Rx Confirmed 10/19/24] albuterol sulfate 90 mcg/actuation aerosol inhaler 2 puff inhalation Q4H PRN wheezing 08/21/24 [History Confirmed 10/19/24] hydrochlorothiazide 25 mg tablet 25 mg PO DAILY 08/21/24 [History Confirmed 10/19/24] hydroxyzine HCl 50 mg tablet 50 mg PO Q6H PRN anxiety 08/21/24 [History Confirmed 10/19/24] propranolol 20 mg tablet 20 mg PO 3XD PRN Anxiety 30 days #60 tabs 09/15/24 [Rx Confirmed 10/19/24] Visit Medications (administered) Generic Name Dose Route Start Last Admin Trade Name Freq PRN Reason Stop Dose Admin Artificial Tears 1 drops 10/22/24 16:46 10/22/24 22:32 Carboxymethylcellulose Drops EYE-BOTH 1 1000units Q1H PRN Administration Dry Eye(s) Aspirin 81 mg 10/13/24 09:00 10/22/24 09:42 Aspirin Ec 81 Mg Tablet PO Not Given DAILY [facility] Atorvastatin Calcium 80 mg 10/12/24 21:00 10/21/24 19:51 Atorvastatin 20 Mg Tablet PO 80 mg BEDTIME MIMI Administration Baclofen 20 mg 10/12/24 17:17 10/20/24 21:36 Baclofen 10 Mg Tablet PO 20 mg TID PRN Administration Muscle Spasm Clonazepam 0.5 mg 10/12/24 17:17 10/20/24 15:31 Clonazepam 0.5 Mg Tablet PO 0.5 mg BID PRN Administration Anxiety Docusate Sodium 100 mg 10/15/24 15:30 10/22/24 20:47 Docusate 100 Mg Capsule PO Not Given BID [facility] Escitalopram Oxalate 20 mg 10/13/24 09:00 10/22/24 09:42 Escitalopram 10 Mg Tablet PO Not Given DAILY [facility] Estradiol 0.5 mg 10/13/24 09:00 10/22/24 09:43 Estradiol 1 Mg Tablet PO Not Given DAILY [facility] Folic Acid 1 mg 10/13/24 09:00 10/22/24 09:43 Folic Acid 1 Mg Tablet PO Not Given DAILY [facility] Haloperidol 2 mg 10/12/24 18:08 10/22/24 11:16 Haloperidol 5 Mg/Ml Vial IV 2 mg Q1HR PRN Administration Hallucinations Heparin Sodium (Porcine) 5,000 unit 10/20/24 09:00 10/22/24 20:48 Heparin 5,000 Unit/Ml Vial SUBCUT Not Given BID MIMI Hydrocortisone 100 mg 10/22/24 15:00 10/23/24 06:19 Hydrocortisone 100 Mg/2 Ml Vial IV 100 mg Q8H MIMI Administration Hydromorphone HCl 0.5 mg 10/14/24 18:31 10/16/24 18:44 Hydromorphone 0.5 Mg Inj IV 0.5 mg Q2H PRN Administration Pain, Severe (7-10) Hydromorphone HCl 2 mg 10/15/24 17:15 10/22/24 00:05 Hydromorphone 2 Mg Tablet PO 2 mg Q3H PRN Administration Pain, Severe (7-10) Dextrose/Sodium Chloride 1,000 mls @ 75 mls/hr 10/22/24 11:30 10/23/24 07:53 Dextrose 5%-0.9% Ns IV 75 mls/hr CONT MIMI Administration NOREPINEPHRINE BITARTRATE/D5W 4 mg in 250 mls @ 15.598 mls/hr 10/22/24 11:42 10/23/24 08:13 Levophed IV 0.17 mcg/kg/min TITRATE MIMI 26.516 mls/hr Titration Protocol 0.1 MCG/KG/MIN Fentanyl 1,000 mcg/ Dextrose 250 mls @ 7.279 mls/hr 10/22/24 12:45 10/23/24 02:14 IV 0.5 mcg/kg/hr TITRATE MIMI 5.199 mls/hr Titration Protocol 0.7 MCG/KG/HR Propofol 1,000 mg in 100 mls @ 1.248 mls/hr 10/22/24 12:45 10/23/24 09:21 Diprivan IV 7.5 mcg/kg/min TITRATE MIMI 1.872 mls/hr Titration Protocol 5 MCG/KG/MIN Vasopressin 40 unit/ Sodium 102 mls @ 4.5 mls/hr 10/22/24 13:48 10/22/24 14:12 Chloride IV 4.5 mls/hr CONT MIMI Administration Phenylephrine HCl 20,000 mcg/ 250 mls @ 7.799 mls/hr 10/22/24 14:00 10/23/24 09:29 Dextrose IV 2 mcg/kg/min TITRATE MIMI 62.391 mls/hr Titration Protocol 0.25 MCG/KG/MIN INSULIN DRIP PREMIX 100 unit in 100 mls @ 6 mls/hr 10/23/24 06:15 10/23/24 09:03 Myxredlin Drip Premix IV 4 mls/hr TITRATE MIMI 4 mls/hr Titration Protocol Levothyroxine Sodium 75 mcg 10/13/24 06:00 10/23/24 07:03 Levothyroxine 75 Mcg Tablet PO Not Given DAILY@0600 MIMI Multivitamins 1 tab 10/13/24 09:00 10/22/24 09:43 Multivitamin 1 Tablet PO Not Given DAILY MIMI Nicotine 14 mg 10/13/24 09:00 10/22/24 09:43 Nicotine 14 Patch TOP Not Given DAILY MIMI Ondansetron HCl 4 mg 10/12/24 18:08 10/21/24 23:25 Ondansetron 4 Mg/2 Ml Inj IV 4 mg Q6HR PRN Administration Nausea And Vomiting Pantoprazole Sodium 40 mg 10/22/24 16:20 10/22/24 20:47 Pantoprazole 40 Mg Vial IV 40 mg BID MIMI Administration Polyethylene Glycol 17 gm 10/15/24 15:30 10/22/24 09:43 Polyethylene Glycol 3350 17 Gm Powd.Pack PO Not Given DAILY [facility] Progesterone 100 mg 10/13/24 09:00 10/22/24 09:43 Progesterone, Micronized 100 Mg Capsule PO Not Given DAILY [facility] Propranolol HCl 20 mg 10/12/24 17:17 10/17/24 09:35 Propranolol 10 Mg Tablet PO 20 mg TID PRN Administration Anxiety Sennosides 8.6 mg 10/15/24 15:27 10/15/24 15:34 Sennosides 8.6 Mg Tablet PO 8.6 mg BEDTIME PRN Administration Constipation Sodium Chloride 10 ml 10/12/24 21:00 10/22/24 20:47 Sodium Chloride 0.9% Flush IV 10 ml BID MIMI Administration Sodium Chloride 10 ml 10/12/24 18:21 10/13/24 01:29 Sodium Chloride 0.9% Flush IV 10 ml PRN PRN Administration Flush Thiamine HCl 100 mg 10/15/24 09:00 10/22/24 09:43 Thiamine 100 Mg Tablet PO Not Given DAILY [facility] Objective Ventilator Parameters: Ventilator Settings FiO2 50 RT Vent Frequency 18 Ventilator Tidal Volume 300 Exhaled Positive End Expiratory 8 Pressure Inspiratory Phase Time 0.8 I:E Ratio 1:2.8 Patient Position HOB >= 30 degrees Labs 10/23/24 05:15 10/23/24 05:15 Labs: Laboratory Results - last 24 hr 10/22/24 10/22/24 10/22/24 10:10 14:35 15:23 WBC 17.0 H RBC 2.33 L Hgb 6.8 L* Hct 20.4 L* MCV 87.6 MCH 29.2 MCHC 33.4 RDW 18.0 H Plt Count 259 Neut % (Auto) Not Reportable Lymph % (Auto) Not Reportable Glynn % (Auto) Not Reportable Eos % (Auto) Not Reportable Baso % (Auto) Not Reportable Neut # (Auto) Lymph # (Auto) Not Reportable Glynn # (Auto) Not Reportable Eos # (Auto) Baso # (Auto) Not Reportable Total Counted 100 Seg Neutrophils % 75.0 H Band Neutrophils % 9.0 H Lymphocytes % (Manual) 14.0 L Monocytes % (Manual) 2.0 Neutrophils # (Manual) 49618 H Nucleated RBCs 1 H Platelet Estimate Adequate on smear RBC Morphology Normal morphology Fibrinogen ABG Sample Site Arterial line ABG pH 7.17 L* ABG pCO2 33.3 L ABG pO2 93 ABG HCO3 12 L ABG Total CO2 12 L ABG O2 Saturation 95 ABG Base Excess -15.2 L Pino Test N/a Respiration Rate 18 O2 Delivery Device Oxygen Liter Flow Mode of Support Prvc/ps FiO2 % 60.0 % Tidal Volume Pressure Support PEEP or CPAP 8 Sodium 131 L Potassium 3.4 Chloride 111 H Carbon Dioxide 11 L BUN 16 Creatinine 1.59 H Estimated GFR 39 L BUN/Creatinine Ratio 10.1 Glucose 296 H D Lactate Calcium 6.4 L* Phosphorus 1.9 L Magnesium 1.6 Total Bilirubin 3.1 H AST 1389 H ALT 616 H Alkaline Phosphatase 312 H D Total Protein 3.9 L Albumin 1.4 L Globulin 2.5 Albumin/Globulin Ratio 0.6 L Urine Color Brown Urine Appearance Clear Urine pH 5.5 Ur Specific [place] 1.025 Urine Protein 1+ H Urine Glucose (UA) Trace H Urine Ketones Negative Urine Occult Blood 1+ H Urine Nitrate Positive H Urine Bilirubin 2+ H Ur Bilirubin Confirm Positive H Urine Urobilinogen 2.0 H Ur Leukocyte Esterase 1+ H Urine RBC 1-5/hpf Urine WBC 5-10/hpf H Ur Squamous Epith Cells 1-5 /hpf Urine Bacteria Moderate (10-30) H Ur Culture Indicated? Specimen cultured Vol Urine Centrifuged 10ml (spun) Nasal Screen MRSA (PCR) Blood Type Antibody Screen Crossmatch 10/22/24 10/22/24 10/22/24 15:26 18:00 21:20 WBC RBC Hgb Hct MCV MCH MCHC RDW Plt Count Neut % (Auto) Lymph % (Auto) Glynn % (Auto) Eos % (Auto) Baso % (Auto) Neut # (Auto) Lymph # (Auto) Glynn # (Auto) Eos # (Auto) Baso # (Auto) Total Counted Seg Neutrophils % Band Neutrophils % Lymphocytes % (Manual) Monocytes % (Manual) Neutrophils # (Manual) Nucleated RBCs Platelet Estimate RBC Morphology Fibrinogen 335 ABG Sample Site Cancelled ABG pH Cancelled ABG pCO2 Cancelled ABG pO2 Cancelled ABG HCO3 Cancelled ABG Total CO2 Cancelled ABG O2 Saturation Cancelled ABG Base Excess Cancelled Pino Test Cancelled Respiration Rate Cancelled O2 Delivery Device Cancelled Oxygen Liter Flow Cancelled Mode of Support Cancelled FiO2 % Cancelled Tidal Volume Cancelled Pressure Support Cancelled PEEP or CPAP Cancelled Sodium Potassium Chloride Carbon Dioxide BUN Creatinine Estimated GFR BUN/Creatinine Ratio Glucose Lactate 2.2 H 2.4 H Calcium Phosphorus Magnesium Total Bilirubin AST ALT Alkaline Phosphatase Total Protein Albumin Globulin Albumin/Globulin Ratio Urine Color Urine Appearance Urine pH Ur Specific [place] Urine Protein Urine Glucose (UA) Urine Ketones Urine Occult Blood Urine Nitrate Urine Bilirubin Ur Bilirubin Confirm Urine Urobilinogen Ur Leukocyte Esterase Urine RBC Urine WBC Ur Squamous Epith Cells Urine Bacteria Ur Culture Indicated? Vol Urine Centrifuged Nasal Screen MRSA (PCR) Blood Type A Positive Antibody Screen Negative Crossmatch See Detail 10/22/24 10/22/24 10/23/24 23:34 23:51 02:10 WBC RBC Hgb Hct MCV MCH MCHC RDW Plt Count Neut % (Auto) Lymph % (Auto) Glynn % (Auto) Eos % (Auto) Baso % (Auto) Neut # (Auto) Lymph # (Auto) Glynn # (Auto) Eos # (Auto) Baso # (Auto) Total Counted Seg Neutrophils % Band Neutrophils % Lymphocytes % (Manual) Monocytes % (Manual) Neutrophils # (Manual) Nucleated RBCs Platelet Estimate RBC Morphology Fibrinogen ABG Sample Site ABG pH ABG pCO2 ABG pO2 ABG HCO3 ABG Total CO2 ABG O2 Saturation ABG Base Excess Pino Test Respiration Rate O2 Delivery Device Oxygen Liter Flow Mode of Support FiO2 % Tidal Volume Pressure Support PEEP or CPAP Sodium Potassium Chloride Carbon Dioxide BUN Creatinine Estimated GFR BUN/Creatinine Ratio Glucose Lactate 2.8 H 2.8 H Calcium Phosphorus Magnesium Total Bilirubin AST ALT Alkaline Phosphatase Total Protein Albumin Globulin Albumin/Globulin Ratio Urine Color Urine Appearance Urine pH Ur Specific [place] Urine Protein Urine Glucose (UA) Urine Ketones Urine Occult Blood Urine Nitrate Urine Bilirubin Ur Bilirubin Confirm Urine Urobilinogen Ur Leukocyte Esterase Urine RBC Urine WBC Ur Squamous Epith Cells Urine Bacteria Ur Culture Indicated? Vol Urine Centrifuged Nasal Screen MRSA (PCR) Not detected Blood Type Antibody Screen Crossmatch 10/23/24 10/23/24 05:15 07:36 WBC 19.3 H RBC 2.74 L Hgb 8.1 L Hct 23.5 L MCV 85.8 MCH 29.7 MCHC 34.7 RDW 15.9 H Plt Count 222 Neut % (Auto) 80.8 H Lymph % (Auto) 16.3 L Glynn % (Auto) 2.6 L Eos % (Auto) 0.1 L Baso % (Auto) 0.2 Neut # (Auto) 51357 H Lymph # (Auto) 3100 Glynn # (Auto) 500 Eos # (Auto) 0 Baso # (Auto) 0 Total Counted Seg Neutrophils % Band Neutrophils % Lymphocytes % (Manual) Monocytes % (Manual) Neutrophils # (Manual) Nucleated RBCs Platelet Estimate RBC Morphology Fibrinogen ABG Sample Site Arterial line ABG pH 7.30 L ABG pCO2 20.7 L* ABG pO2 77 L ABG HCO3 10 L ABG Total CO2 10 L ABG O2 Saturation 94 L ABG Base Excess -14.8 L Pino Test N/a Respiration Rate 18 O2 Delivery Device Adult ventilator Oxygen Liter Flow Mode of Support Assist cont ventilat FiO2 % 50.0 % Tidal Volume Pressure Support PEEP or CPAP 8 Sodium 126 L Potassium 3.4 Chloride 108 H Carbon Dioxide 9 L* BUN 16 Creatinine 1.53 H Estimated GFR 41 L BUN/Creatinine Ratio 10.5 Glucose 337 H Lactate Calcium 5.9 L* Phosphorus Magnesium 1.4 L Total Bilirubin AST ALT Alkaline Phosphatase Total Protein Albumin Globulin Albumin/Globulin Ratio Urine Color Urine Appearance Urine pH Ur Specific [place] Urine Protein Urine Glucose (UA) Urine Ketones Urine Occult Blood Urine Nitrate Urine Bilirubin Ur Bilirubin Confirm Urine Urobilinogen Ur Leukocyte Esterase Urine RBC Urine WBC Ur Squamous Epith Cells Urine Bacteria Ur Culture Indicated? Vol Urine Centrifuged Nasal Screen MRSA (PCR) Blood Type Antibody Screen Crossmatch Exam Vital Signs (past 8 hours): - 10/23/24 01:45 10/23/24 02:00 10/23/24 02:00 Temperature Pulse Rate 114 H 114 H Respiratory Rate 13 21 Blood Pressure 88/61 L Pulse Oximetry 97 97 Oxygen Delivery Method Fraction of Inspired Oxygen 10/23/24 02:15 10/23/24 02:30 10/23/24 02:30 Temperature Pulse Rate 112 H 110 H Respiratory Rate 19 20 Blood Pressure 92/56 L Pulse Oximetry 97 98 Oxygen Delivery Method Fraction of Inspired Oxygen 10/23/24 02:45 10/23/24 02:58 10/23/24 03:00 Temperature Pulse Rate 110 H 110 H 110 H Respiratory Rate 19 18 19 Blood Pressure 88/62 L Pulse Oximetry 98 97 97 Oxygen Delivery Method Fraction of Inspired Oxygen 40 10/23/24 03:00 10/23/24 03:15 10/23/24 03:30 Temperature Pulse Rate 110 H 111 H Respiratory Rate 18 19 Blood Pressure 88/62 L Pulse Oximetry 97 95 Oxygen Delivery Method Fraction of Inspired Oxygen 10/23/24 03:30 10/23/24 03:45 10/23/24 04:00 Temperature Pulse Rate 110 H 110 H Respiratory Rate 18 18 Blood Pressure 100/65 Pulse Oximetry 96 97 Oxygen Delivery Method Fraction of Inspired Oxygen 10/23/24 04:00 10/23/24 04:00 10/23/24 04:00 Temperature Pulse Rate 110 H Respiratory Rate 19 Blood Pressure 92/60 95/62 Pulse Oximetry 95 Oxygen Delivery Method Mechanical Ventilation Fraction of Inspired Oxygen 40 10/23/24 04:15 10/23/24 06:00 10/23/24 06:00 Temperature Pulse Rate 110 H 111 H 111 H Respiratory Rate 19 18 20 Blood Pressure 96/62 Pulse Oximetry 96 96 96 Oxygen Delivery Method Fraction of Inspired Oxygen 40 10/23/24 06:00 10/23/24 06:15 10/23/24 06:30 Temperature Pulse Rate 111 H Respiratory Rate 18 Blood Pressure 96/62 100/58 L Pulse Oximetry 94 Oxygen Delivery Method Fraction of Inspired Oxygen 10/23/24 06:30 10/23/24 06:45 10/23/24 07:00 Temperature Pulse Rate 111 H 111 H Respiratory Rate 20 13 Blood Pressure 94/54 L Pulse Oximetry 95 91 Oxygen Delivery Method Fraction of Inspired Oxygen 10/23/24 07:00 10/23/24 07:15 10/23/24 07:30 Temperature Pulse Rate 112 H 113 H Respiratory Rate 17 13 Blood Pressure 95/60 Pulse Oximetry 97 95 Oxygen Delivery Method Fraction of Inspired Oxygen 10/23/24 07:30 10/23/24 08:14 10/23/24 08:30 Temperature 97.5 F L Pulse Rate 113 H 113 H Respiratory Rate 13 24 Blood Pressure 84/49 L 95/60 Pulse Oximetry 96 95 Oxygen Delivery Method Fraction of Inspired Oxygen 50 10/23/24 08:30 10/23/24 08:45 10/23/24 09:00 Temperature Pulse Rate 113 H 118 H 115 H Respiratory Rate 13 21 Blood Pressure Pulse Oximetry 94 94 93 Oxygen Delivery Method Fraction of Inspired Oxygen 10/23/24 09:00 10/23/24 09:24 Temperature 99.1 F Pulse Rate Respiratory Rate Blood Pressure 95/61 Pulse Oximetry Oxygen Delivery Method Fraction of Inspired Oxygen Fraction of Inspired Oxygen 50 Oxygen Delivery Method Mechanical Ventilation Oxygen Flow Rate 4 Quality TeleICU VTE Deep Vein Thrombosis/Pulmonary Embolism Present on Admission: No Assessment & Plan Time-Based Coding :: [TOTAL MINUTES] spent with patient and on the chart (including review of chart, obtaining history, exam, reviewing outside data, placing orders, documenting exam and treatment plan, and counseling patient) on [DATE].
[2024-10-23] MEDS: CEFEPIME 2 GM in SODIUM CHLORIDE 0.9% 100 ML IV ×2 (10:37→21:30)
[2024-10-23] MEDS: HEPARIN 5,000 UNIT/ML VIAL 5000 UNIT SUBCUT ×2 (10:39→21:20)
[2024-10-23] MEDS: metroNIDAZOLE 500 MG/100 ML PIGGYBACK 100 MG IV ×2 (10:39→19:48)
[2024-10-23] MEDS: SODIUM CHLORIDE 0.9% 1,000 ML 1000 ML IV (10:39)
[2024-10-23] MEDS: PANTOPRAZOLE 40 MG VIAL IV ×2 (10:40→21:20)
[2024-10-23] MEDS: SODIUM CHLORIDE 0.9% FLUSH 10 ML IV ×2 (10:52→21:20)
--- NOTE | 2024-10-23 11:08 | DI.RAD.S_ITS ---
PROCEDURE: XR CHEST 1V INDICATIONS: worsening hypoxia TECHNIQUE: One view of the chest was acquired. COMPARISON: [facility], CR, XR CHEST 1V, 10/22/2024, 12:38. FINDINGS: Surgical changes and devices: Tip of ET tube is approximately 9 mm above the марина. Slight retraction recommended. Enteric tube and right IJ line are in satisfactory position. Lungs and pleura: Progression of extensive bilateral pulmonary infiltrates. No pleural effusions or pneumothorax. Mediastinum: Mediastinal contours appear normal. Heart size is normal. Bones and chest wall: No suspicious bony lesions. Overlying soft tissues appear unremarkable. IMPRESSION: 1. Recommend slight retraction of ET tube. 2. Progression of diffuse bilateral pulmonary infiltrates. Comment: A call to the doctor's office for the ICU was not answered by a physician. Tania, the nurse coordinator for the unit, was notified that the referring physician should read his report on 10/23/2024 at 1320 hours, so that he will understand that the ET tube should be retracted. Dictated by: Thomas Escobar M.D. on 10/23/2024 at 13:18 Approved by: Thomas Escobar M.D. on 10/23/2024 at 13:22
[2024-10-23] MEDS: POTASSIUM CHLORIDE IN WATER 10 MEQ/100 ML PIGGYBACK 100 MEQ IV ×4 (11:25→15:01)
[2024-10-23] MEDS: PHENYLEPHRINE 40,000 MCG in DEXTROSE 5% IN WATER 250 ML 31.25 MCG IV (11:37)
[2024-10-23] MEDS: ALBUMIN HUMAN 12.5 GM/250 ML VIAL IV ×2 (11:37→12:39)
--- NOTE | 2024-10-23 12:08 | DI.ECHO.S_ITS ---
[place] [facility]+ [facility] : : [address] : : [place] : : [id number] : : Phone: [phone] Echocardiogram Report + + :Name: THOMAS AYALA Study Date: 10/23/2024 Height: 60 in : :Hospital ReadingLocation: Weight: 91 lb : : Gender: Female BSA: 1.3 m2 : :: 1970 Age: 54 yrs BP: 104/68 mmHg: :Reason For Study: RESPRITORY FAILURE : :Ordering Physician: PEDRO, : :KENNETH PRADO Performed By: Goldie Cuenca : :Referring: KENNETH VASQUEZ : + + Interpretation Summary Hyperdynamic LV systolic function. LVEF is greater than 70%. No significant LVOT gradient was noted. Likely normal RV size and function. No signs of pericardial effusion. Procedure: A two-dimensional transthoracic echocardiogram with color flow and Doppler was performed in limited views only. Images were not obtained from all of the standard acoustic windows due to the limited scope of the study. The study quality was technically adequate. Comparison is made with the echocardiogram of 09/14/2024. The patient was in sinus tachycardia with heart rates between 120-124 bpm during the exam. Left Ventricle: Left ventricle is borderline small in size. The estimated left ventricular end diastolic volume is 47 ml. There is normal left ventricular wall thickness. The left ventricle is hyperdynamic. Left ventricular ejection fraction is estimated to be >70. There has been no significant change since the previous exam. Pericardium/ Pleura There is no pericardial effusion. MMode/2D Measurements & Calculations LVIDd: 3.9 cm LVIDs: 2.1 cm FS: 44.8 % IVSd: 0.69 cm LVPWd: 0.93 cm LV velazquez. diameter/BSA (cm/m^2): 2.9 LV sys. diameter/BSA (cm/m^2): 1.6 Doppler Measurements & Calculations Ao V2 max: 142.7 cm/sec LVOT Max Scott: 129.5 cm/sec Ao V2 mean: 106.0 cm/sec LV V1 max P.7 mmHg Ao max P.1 mmHg LV V1 VTI: 20.2 cm Ao mean P.0 mmHg sev ratio: 0.88 Ao V2 VTI: 23.1 cm Reading Physician:04:17 PM
[2024-10-23 12:16] LABS: Alanine Aminotransferase 385 IU/L (<35); Albumin 1.9 g/dL (3.5-5.0); Albumin Globulin Ratio 0.8 (1.0-2.8); Alkaline Phosphatase 206 U/L (38-126); BUN Creatinine Ratio 11.4 (6-22); Bilirubin Total 4.1 mg/dL (0.2-1.3); Blood Urea Nitrogen 16 mg/dL (7-17); Calcium 8.1 mg/dL (8.4-10.2); Chloride 110 mmol/L (98-107); Estimated Glomerular Filt Rate 45 mL/min (>60); Globulin 2.3 g/dL (1.7-4.1); Glucose 227 mg/dL (70-99); HEMOLYSIS 24 (0-50); Magnesium 2.2 mg/dL (1.6-2.3); Sodium 127 mmol/L (137-145); Total Protein 4.2 g/dL (6.3-8.2)
[2024-10-23 12:25] LABS: Aspartate Aminotransferase 811 IU/L (14-36); Carbon Dioxide 8 mmol/L (22-32)
--- NOTE | 2024-10-23 12:50 | CM.DPNOTE ---
Addendum entered by ROMARIO Wynn 10/23/24 13:04: [facility] LT Pipe Straightener: Ashly Alonso email: [email or web address] #[phone] Per CM rounds, [facility] CM has been updated of events of the previous evening. MALENA Arnett Original Note: DCP Continued: Reviewed EMR and team rounds for pt?s medical status. Per hospitalist, there is a suspicion that patient aspirated and went into septic shock. Pt was intubated overnight and is currently on 3 vasopressors. Patient is currently presumed to be Full Code due to no other medical decision makers at this time (both family members are admitted and not decisional currently). Per hospitalist, pt will be monitored over the weekend to determine ultimate discharge plans/prognosis. DCP followed up with [facility] Admissions and updated on pt current status. It is reported that there is no insurance authorization yet anyway so they will follow up with CM team on Saturday, 10/26 if referral should continue. Plan: Medical plan and prognosis currently unclear due to pt status. CM Team will continue to follow for coordination of discharge plans and other forms of support. MALENA Arnett
[2024-10-23] MEDS: VASOPRESSIN 40 UNIT in SODIUM CHLORIDE 0.9% 100 ML 4.5 UNIT IV (12:54)
--- NOTE | 2024-10-23 13:02 | DIET.CONS ---
Dietary Consultation Note Admission Date: 10/12/2024 16:27 RD consulted for TPN reccs per protocol. Pt in septic shock on ventilator and high level of pressors. Pt with BGs >200 and drop in K+ and Magnesium. Spoke with pharmacy recc switch 5% dextrose to NS, electrolyte replenishing and thiamine. Day 1: Initiating continuous TPN (clinimix E 5/20) 0.5L starting at 21mL/h for first 24h. Day 2: If pt tolerating and BG/refeeding labs stable, increase to 1.0L Clinimix running at 42mL/h. Day 3: Per Critical Care septic shock feeding reccs, 20kcal/kg/day and 1.2g PRO/kg/day appropriate, so keep at 1L Clinimix until pt stabilizes. Recc addition of trophic enteral nutrition to support gut integrity as soon as safe. Ht: 152.4 cm Wt: 41.594 kg BMI: 17.9 UBW: Last BM: 10/23/24 (10/23/24 12:00) MNA: 4 Santosh Score: 9 Diet: 10/22/24 15:19 NPO Diet Diet Modifications: on vent NPO Type: Strict 10/22/24 Dinner Tube Feeding Diet Diet Modifications: TF Supplement type: Pivot 1.5 dar TF mode of delivery: Continuous Starting flow rate mL/hr: 10 Flow rate goal mL/hr: 30 Titration Schedule to reach Goal Rate: trophic feed x24h then increase by 10mL q12h Max total daily volume in mL: 1,260 Free fluid: 120 Free Water Frequency: Q4H Comment: start when cleared by hospitalist team Nutrition Percent Meal Consumed 0% 10/21/24 18:00 Labs: RBC 2.74 X10^6/uL (4.0-5.2) L 10/23/24 05:15 Hgb 8.1 g/dL (12.0-16.0) L 10/23/24 05:15 Hct 23.5 % (36-46) L 10/23/24 05:15 Creatinine 1.40 mg/dL (0.52-1.04) H 10/23/24 12:00 Hemoglobin A1c < 4.0 % (4.0-6.0) L 10/12/24 06:40 Lactate 2.8 mmol/L (0.7-2.1) H 10/23/24 02:10 Nutrition Diagnosis: Severe Acute Protein Calorie Malnutrition r/t difficulty managing self care and NPO aeb pt ventilated, BMI 17.9, etoh abuse, FTT and initiation request for TPN due to hemodynamic instability. Interventions: recc switch 5% dextrose to NS, electrolyte replenishing and thiamine. Day 1: Initiating continuous TPN (clinimix E 5/20) 0.5L starting at 21mL/h for first 24h. Day 2: If pt tolerating and BG/refeeding labs stable, increase to 1.0L Clinimix running at 42mL/h. Day 3: Per Critical Care septic shock feeding reccs, 20kcal/kg/day and 1.2g PRO/kg/day appropriate, so keep at 1L Clinimix until pt stabilizes. Recc addition of trophic enteral nutrition to support gut integrity as soon as safe. EER: 840kcals (20kcal/kg per critical care), 50g PRO (1.2g/kg per critical care) Monitoring/Evaluations: following daily and in person f/u Saturday Electronically Signed by: Gabrielle Myrick 10/23/24 13:02 Clinical Dietitian [address] [address]
[2024-10-23] MEDS: FUROSEMIDE 40 MG/4 ML VIAL IV (13:54)
--- NOTE | 2024-10-23 13:56 | CM.DPNOTE ---
Rental Tenant Information Patient and spouse Lam's tenant information; Eliza Lopez P [phone]. Eliza has been renting from patient and spouse Lam Padmini at [address] [facility] for 10+ years. JW
--- NOTE | 2024-10-23 14:32 | PM.EICU.INT ---
Teleintensivist Intervention Date/Time Was camera activated?: No Issue(s) Addressed Issue(s): Abnormal labs Other:: Reviewed the lab and CXR, team is giving 40 of IV lasix, total calcium improved, recommend to start the bicarb 50 meq q1h x3 then repeat blood Gas, no bicarb drip getting the volume status concern. Intervention(s) Plan discussed with: Nurse
[2024-10-23] MEDS: SODIUM BICARB 8.4% SYRINGE 50 MEQ IV ×3 (14:56→18:00)
--- NOTE | 2024-10-23 14:57 | CM.DPNOTE ---
Addendum entered by ROMARIO Melgar 10/23/24 15:05: ADD: Spoke with Billing dept, [facility] ; water will not be shut off, however, patient's utility bill is outstanding and needs to be addressed eventually. Utility dept aware patient/sp admitted and will keep water on for as long as possible. Original Note: Placed call to [facility] Dept.P [phone] Per request from patient's tenant Eliza Lopez P [phone]. Had to . Requested that property water not be shut off at [address] [facility], [place], [place] [address]. Property owners admitted to . Case # [id number] JW
--- NOTE | 2024-10-23 15:30 | P.PN_ITS ---
Subjective Subjective Interval history: Summary: She is a 54-year-old female who presented with weakness and electrolyte abnormalities in context of severe alcohol use disorder. She was also noted to have a subacute infarct and stroke. Yesterday patient transferred to the ICU with septic shock likely due to aspiration pneumonia. Today her respiratory status continues to worsen, with development of diffuse pulmonary infiltrates. Furosemide is being given this afternoon, attempting to volume replete with albumin. TTE at bedside with hyperdynamic LV function. She was also started on bicarb for metabolic acidosis. I spoke with her spouse who is also admitted here for alcohol withdrawal. He is stable today and we had a prolonged goals of care discussion about the patient this afternoon. He was able to express understanding and able to comprehend the risks and benefits as regard to DNR status, withdrawal of care, or continued care. This will be further summarized below, but in short patient was made DNR, no escalation of care. Exam Vital Signs (past 8 hours): - 10/23/24 08:00 10/23/24 08:00 10/23/24 08:00 Temperature Pulse Rate 114 H Respiratory Rate 14 Blood Pressure 98/56 L Pulse Oximetry 94 Oxygen Delivery Method Mechanical Ventilation Fraction of Inspired Oxygen 10/23/24 08:14 10/23/24 08:30 10/23/24 08:30 Temperature 97.5 F L Pulse Rate 113 H 113 H Respiratory Rate 24 13 Blood Pressure 84/49 L 95/60 Pulse Oximetry 95 94 Oxygen Delivery Method Fraction of Inspired Oxygen 50 10/23/24 08:45 10/23/24 09:00 10/23/24 09:00 Temperature Pulse Rate 118 H 115 H Respiratory Rate 21 Blood Pressure 95/61 Pulse Oximetry 94 93 Oxygen Delivery Method Fraction of Inspired Oxygen 10/23/24 09:15 10/23/24 09:24 10/23/24 09:30 Temperature 99.1 F Pulse Rate 115 H 115 H Respiratory Rate 18 19 Blood Pressure Pulse Oximetry 92 90 L Oxygen Delivery Method Fraction of Inspired Oxygen 10/23/24 09:30 10/23/24 09:45 10/23/24 10:00 Temperature Pulse Rate 117 H Respiratory Rate 15 Blood Pressure 95/61 101/68 Pulse Oximetry 90 L Oxygen Delivery Method Fraction of Inspired Oxygen 10/23/24 10:00 10/23/24 10:00 10/23/24 10:15 Temperature Pulse Rate 120 H 121 H 121 H Respiratory Rate 15 15 14 Blood Pressure 90/49 L Pulse Oximetry 100 92 90 L Oxygen Delivery Method Fraction of Inspired Oxygen 80 10/23/24 10:30 10/23/24 10:30 10/23/24 10:30 Temperature Pulse Rate 121 H 120 H Respiratory Rate 18 13 Blood Pressure 95/52 L 94/61 Pulse Oximetry 88 L 93 Oxygen Delivery Method Fraction of Inspired Oxygen 60 10/23/24 10:45 10/23/24 11:00 10/23/24 11:00 Temperature Pulse Rate 118 H Respiratory Rate 14 Blood Pressure 93/50 L 92/59 L Pulse Oximetry 92 97 Oxygen Delivery Method Fraction of Inspired Oxygen 10/23/24 11:00 10/23/24 11:15 10/23/24 11:30 Temperature Pulse Rate 117 H 119 H Respiratory Rate 15 15 Blood Pressure 94/60 Pulse Oximetry 97 95 Oxygen Delivery Method Fraction of Inspired Oxygen 10/23/24 11:30 10/23/24 11:45 10/23/24 12:00 Temperature Pulse Rate 121 H 121 H Respiratory Rate 15 15 Blood Pressure Pulse Oximetry 92 91 Oxygen Delivery Method Mechanical Ventilation Fraction of Inspired Oxygen 10/23/24 12:00 10/23/24 12:00 10/23/24 12:00 Temperature Pulse Rate 121 H 121 H Respiratory Rate 18 14 Blood Pressure 90/50 L 88/60 L Pulse Oximetry 93 92 Oxygen Delivery Method Fraction of Inspired Oxygen 80 10/23/24 12:15 10/23/24 12:30 10/23/24 12:30 Temperature Pulse Rate 121 H 121 H Respiratory Rate 14 14 Blood Pressure 90/58 L Pulse Oximetry 93 93 Oxygen Delivery Method Fraction of Inspired Oxygen 10/23/24 12:45 10/23/24 13:00 10/23/24 13:00 Temperature Pulse Rate 121 H 121 H Respiratory Rate 15 15 Blood Pressure 97/62 Pulse Oximetry 93 91 Oxygen Delivery Method Fraction of Inspired Oxygen 10/23/24 13:13 10/23/24 13:15 10/23/24 13:30 Temperature 98.5 F Pulse Rate 122 H 123 H Respiratory Rate 14 14 Blood Pressure Pulse Oximetry 93 92 Oxygen Delivery Method Fraction of Inspired Oxygen 10/23/24 13:30 10/23/24 13:48 10/23/24 14:00 Temperature Pulse Rate 124 H Respiratory Rate 19 Blood Pressure 101/60 88/51 L Pulse Oximetry 90 L 93 Oxygen Delivery Method Fraction of Inspired Oxygen 100 75 10/23/24 14:00 10/23/24 14:00 10/23/24 14:30 Temperature Pulse Rate 125 H 124 H Respiratory Rate 14 15 Blood Pressure 101/68 Pulse Oximetry 92 93 Oxygen Delivery Method Fraction of Inspired Oxygen 10/23/24 14:30 10/23/24 15:21 Temperature Pulse Rate Respiratory Rate Blood Pressure 102/64 Pulse Oximetry 86 L Oxygen Delivery Method Fraction of Inspired Oxygen 100 Fraction of Inspired Oxygen 100 Oxygen Delivery Method Mechanical Ventilation Oxygen Flow Rate 4 Narrative Exam Narrative: She is cachectic, and frail. Now intubated and sedated. Diffuse scattered rhonchi tachycardic, regular rhythm, no m/r/g Abdomen is soft, non distended. Extremities are free of edema. Objective Labs 10/23/24 05:15 10/23/24 12:00 Labs: Laboratory Results - last 24 hr 10/22/24 10/22/24 10/22/24 15:23 15:26 18:00 WBC RBC Hgb Hct MCV MCH MCHC RDW Plt Count Neut % (Auto) Lymph % (Auto) Collier % (Auto) Eos % (Auto) Baso % (Auto) Neut # (Auto) Lymph # (Auto) Collier # (Auto) Eos # (Auto) Baso # (Auto) Fibrinogen 335 ABG Sample Site Arterial line Cancelled ABG pH 7.17 L* Cancelled ABG pCO2 33.3 L Cancelled ABG pO2 93 Cancelled ABG HCO3 12 L Cancelled ABG Total CO2 12 L Cancelled ABG O2 Saturation 95 Cancelled ABG Base Excess -15.2 L Cancelled Pino Test N/a Cancelled Respiration Rate 18 Cancelled O2 Delivery Device Cancelled Oxygen Liter Flow Cancelled Mode of Support Prvc/ps Cancelled FiO2 % 60.0 % Cancelled Tidal Volume Cancelled Pressure Support Cancelled PEEP or CPAP 8 Cancelled Sodium Potassium Chloride Carbon Dioxide BUN Creatinine Estimated GFR BUN/Creatinine Ratio Glucose Lactate 2.2 H Calcium Magnesium Total Bilirubin AST ALT Alkaline Phosphatase Total Protein Albumin Globulin Albumin/Globulin Ratio Nasal Screen MRSA (PCR) Blood Type A Positive Antibody Screen Negative Crossmatch See Detail 10/22/24 10/22/24 10/22/24 21:20 23:34 23:51 WBC RBC Hgb Hct MCV MCH MCHC RDW Plt Count Neut % (Auto) Lymph % (Auto) Collier % (Auto) Eos % (Auto) Baso % (Auto) Neut # (Auto) Lymph # (Auto) Collier # (Auto) Eos # (Auto) Baso # (Auto) Fibrinogen ABG Sample Site ABG pH ABG pCO2 ABG pO2 ABG HCO3 ABG Total CO2 ABG O2 Saturation ABG Base Excess Pino Test Respiration Rate O2 Delivery Device Oxygen Liter Flow Mode of Support FiO2 % Tidal Volume Pressure Support PEEP or CPAP Sodium Potassium Chloride Carbon Dioxide BUN Creatinine Estimated GFR BUN/Creatinine Ratio Glucose Lactate 2.4 H 2.8 H Calcium Magnesium Total Bilirubin AST ALT Alkaline Phosphatase Total Protein Albumin Globulin Albumin/Globulin Ratio Nasal Screen MRSA (PCR) Not detected Blood Type Antibody Screen Crossmatch 10/23/24 10/23/24 10/23/24 02:10 05:15 07:36 WBC 19.3 H RBC 2.74 L Hgb 8.1 L Hct 23.5 L MCV 85.8 MCH 29.7 MCHC 34.7 RDW 15.9 H Plt Count 222 Neut % (Auto) 80.8 H Lymph % (Auto) 16.3 L Collier % (Auto) 2.6 L Eos % (Auto) 0.1 L Baso % (Auto) 0.2 Neut # (Auto) 42572 H Lymph # (Auto) 3100 Collier # (Auto) 500 Eos # (Auto) 0 Baso # (Auto) 0 Fibrinogen ABG Sample Site Arterial line ABG pH 7.30 L ABG pCO2 20.7 L* ABG pO2 77 L ABG HCO3 10 L ABG Total CO2 10 L ABG O2 Saturation 94 L ABG Base Excess -14.8 L Pino Test N/a Respiration Rate 18 O2 Delivery Device Adult ventilator Oxygen Liter Flow Mode of Support Assist cont ventilat FiO2 % 50.0 % Tidal Volume Pressure Support PEEP or CPAP 8 Sodium 126 L Potassium 3.4 Chloride 108 H Carbon Dioxide 9 L* BUN 16 Creatinine 1.53 H Estimated GFR 41 L BUN/Creatinine Ratio 10.5 Glucose 337 H Lactate 2.8 H Calcium 5.9 L* Magnesium 1.4 L Total Bilirubin AST ALT Alkaline Phosphatase Total Protein Albumin Globulin Albumin/Globulin Ratio Nasal Screen MRSA (PCR) Blood Type Antibody Screen Crossmatch 10/23/24 12:00 WBC RBC Hgb Hct MCV MCH MCHC RDW Plt Count Neut % (Auto) Lymph % (Auto) Collier % (Auto) Eos % (Auto) Baso % (Auto) Neut # (Auto) Lymph # (Auto) Collier # (Auto) Eos # (Auto) Baso # (Auto) Fibrinogen ABG Sample Site ABG pH ABG pCO2 ABG pO2 ABG HCO3 ABG Total CO2 ABG O2 Saturation ABG Base Excess Pino Test Respiration Rate O2 Delivery Device Oxygen Liter Flow Mode of Support FiO2 % Tidal Volume Pressure Support PEEP or CPAP Sodium 127 L Potassium 3.0 L Chloride 110 H Carbon Dioxide 8 L* BUN 16 Creatinine 1.40 H Estimated GFR 45 L BUN/Creatinine Ratio 11.4 Glucose 227 H D Lactate Calcium 8.1 L Magnesium 2.2 Total Bilirubin 4.1 H AST 811 H ALT 385 H Alkaline Phosphatase 206 H Total Protein 4.2 L Albumin 1.9 L Globulin 2.3 Albumin/Globulin Ratio 0.8 L Nasal Screen MRSA (PCR) Blood Type Antibody Screen Crossmatch [facility] Medical History Amenorrhea Neuropathy Chronic venous insufficiency Obstructive sleep apnea (Unknown) GERD (gastroesophageal reflux disease) (Unknown) Allergy (Unknown) Restless leg syndrome (2014) Anxiety (1989) Shoulder pain (Unknown) Foot pain (2003) Chronic back pain (Unknown) Vertigo (1979) Painful menstrual periods (Unknown) Heavy menses (Unknown) IBS (irritable bowel syndrome) (1985) Surgical History 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) Hx of sinus surgery (2011) History of removal of laparoscopic gastric banding device (2014) Hx of laparoscopic gastric banding (2011) Family History Grandmother Cancer Mental health problem Mother Age: 76 Mental health disorder Sister Age: 58 Heart disease Hypertension High cholesterol Mental health problem Asthma COPD (chronic obstructive pulmonary disease) Social History household members: spouse and family Smoking Status: Current every day smoker Tobacco: How many years used: 10 second hand exposure: No alcohol intake: current substance use type: does not use Assessment & Plan Assessment & Plan narrative: 1. Acute and subacute right frontal and possible left parietal punctate infarcts, Stable. Continue high-intensity statin therapy, aspirin. - repeat head CT 10/22 with no acute findings. 2. 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 4. Alcohol withdrawal delirium, resolved. 5. Benzodiazepine/baclofen dependence, stable. 6. Peripheral neuropathy, stable. 7. Failure to thrive/debility, active. She is on a citalopram for depression. 8. Hypokalemia, active. 9. Acute on chronic anemia, Stable. 10. Hypoglycemia, improved. NEW diagnoses 10/22 1. Septic shock, not present on admission, due to aspiration pneumonia 2. Shock liver 3. GAVINO 4. Acute metabolic encephalopathy 5. Acute on chronic anemia, possible GI bleeding. PLAN: -tele-sheet metal lay out worker consult for help with pressors and management. Appreciate their assistance. -Patient with worsening bilateral pulmonary diffuse infiltrates on CXR. Either pulmonary edema or ARDS. No hemopytsis / secretions. Diurese x1 to see if any output 40 mg IV, consider additional furosemide. Received 1U PRBC yesterday for Hg 6.8. Responded appropriately today. -sedation with propofol and fentanyl, can add precedex to wean off fentanyl too. -Currently on 3 pressors, wean 1st levophed, then Kwadwo, then Vaso per sheet metal lay out worker -also on stress dose hydrocortisone. -Hypocalcemia repeleted with Ca choride today. -Sheetmetal Trades Worker implementing sodium bicarb infusion given acidosis. -Prior Klebsiella resistant to zosyn, change from zosyn to cefepime and flagyl (colitis noted as well). With negative MRSA swab MRSA infection unlikely will hold on vacn. -on insulin infusion for hyperglycemia and acidosis -continue IV PPI -start TPN per pharmacy very slowly tonight Poor prognosis for patient. This was further discussed with patient's spouse today. Spouse is admitted here for alcohol withdrawal but he is alert and much improved today, though quite depressed he states very frankly. He recalls prior discussion with the patient where he talked about wanting to be a DNR, and she was the opposite of me on that. She previously wanted everything done. Knowing her though, he relates that she likely would not want to be kept alive indefinitely, and would not want a permanent feeding tube or tracheostomy / prolonged ventilation. Given the above, patient's spouse agreed that if her heart were to stop, it may be able to be restarted but the likelihood of meaningful recovery from that would would be extremely small and more likely to cause the patient harm. He wished for me to make the patient DNR. He was not thinking she would want to be full comfort so soon and she should have a chance at recovery with continued care at this time. I discussed that the longer she remains on multiple medications to keep her BP up the lower the likelihood of recovery and we may need to rediscuss possible transition to comfort based care in the near future. I spent 40 minutes providing critical care management this patient. This excludes time spent in performing separately billed procedures. An additional 20 minutes was performed in the advanced care planning for this patient and is summarized above. Dispo: remains ICU GOC: DNR Time-Based Coding :: [TOTAL MINUTES] spent with patient and on the chart (including review of chart, obtaining history, exam, reviewing outside data, placing orders, documenting exam and treatment plan, and counseling patient) on [DATE]. Quality VTE Deep Vein Thrombosis/Pulmonary Embolism Present on Admission: No
[2024-10-23] MEDS: SODIUM CHLORIDE 0.9% IV ×2 (16:46→22:30)
[2024-10-23] MEDS: PHENYLEPHRINE IV ×2 (16:46→22:30)
[2024-10-23] MEDS: fentaNYL 1,000 MCG in SODIUM CHLORIDE 0.9% 230 ML 5.199 MCG IV (16:48)
[2024-10-23] MEDS: MULTIVITAMIN IV (16:57)
[2024-10-23] MEDS: CALCIUM IV (16:57)
[2024-10-23] MEDS: DEXT IV (16:57)
[2024-10-23] MEDS: [UNRECOGNIZED DRUG - OTHER] IV (16:57)
[2024-10-23] MEDS: LYTES IV (16:57)
[2024-10-23] MEDS: THIAMINE IV (16:57)
[2024-10-23] MEDS: FAT EMULSIONS 50 GM/250 ML EMULSION IV (17:13)
[2024-10-23 17:21] LABS: Phosphorous 2.2 mg/dL (2.5-4.5)
--- NOTE | 2024-10-23 17:33 | PC.NURSE ---
Pt spont opening eyes but not following commands, prop and fent for comfort. Restraints intact, q2h checks. Pt still on levo, vaso and phenyl for BP support. Trying to wean off Levo. Albumin 25% and 5% given. 3x 1 amp bicarb pushes given. Pt having continual desaturation throughout shift, PEEP gradually increased to 10 and Fio2 75%. Insulin gtt q1h, stabailizing out. TPN started for nutrition. 1L NS bolus given in hopes for BP and urine support. Very low urine output throughtout shift, with pt becoming increasingly edematous. 1x 40mg lasix given. 1x bm. at bedside, with the decision to make pt DNR.
[2024-10-23 17:39] LABS: Prealbumin 6.1 mg/dL (17.6-36.0)
[2024-10-23] MEDS: propofoL 1,000 MG/100 ML VIAL 1.248 MG IV (21:45)
--- NOTE | 2024-10-23 23:46 | PM.EICU.INT ---
Teleintensivist Intervention Date/Time Was camera activated?: Yes Date Patient Seen: 10/24/24 Time Patient Seen: 02:46 Issue(s) Addressed Issue(s): Resp. Distress/Ventilator management (Called for hypoxemia in 80s which started after pt was turned for routine RN interventions. Pt's code status is DNR.) Other:: CAMERA: Intubated, sedated RASS (-) 1 but not following commands DRIPS: Phenylephrine 3 mcg/kg/min Vasopressin 0.03 units/min NE OFF Propofol 10 mcg/kg/min Fentanyl 0.5 mcg/kg/min INTERVENTIONS: 1) Increase PEEP to 12 cm H2O 2) Increase analgosedation to target RASS (-) 4 to (-) 5 even if NE gtt has to be restarted Intervention(s) Plan discussed with: Nurse
[2024-10-24] VITALS (99 sets, daily range): BP systolic 86–102; BP diastolic 51–68; PULSE 96–120; RESP 14–25; TEMP 36.9; O2SAT 90–100
[2024-10-24] MEDS: MIDAZOLAM 2 MG/2 ML VIAL 4 MG IV (00:01)
--- NOTE | 2024-10-24 00:44 | PC.NURSE ---
Addendum entered by Carla Rocha R.N. 10/24/24 07:24: After IV Versed given, patient was calm again, minimal stimuli since event, FIO2 titrated down to 70%, other settings remain the same. Propofol now at 10mcg, Fentanyl now at 0.7mcg. Phenylephrine at 5mcg or 77.8ml/hr. Dr. Finch informed of critical serum CO2 9. Orders received for sodium bicarb-see Emar. Shift report done at bedside in am. Addendum entered by Carla Rocha R.N. 10/24/24 01:15: At 2315 while turning patient and doing routine mouth care, she woke up, eyes wide open but not focusing, reaches for ETT, but no other purposeful movements, restraints still in place. Patient started to desat to 70s, RT came to room, FIO2 increased to 100%, unable to get good O2 pleth, fingers cool, warmed them up and trouble shooting, ETT remains 21cm at teeth, coarse lungs sounds throughout, no cyanosis noted other than finger tips. ST 120s, BP remained stable on previously stated pressor rates. Tele-I Dr. Weaver contacted, appeared on camera. Per his orders, PEEP increased to 12, remain at 100%. Propofol titrated up to 15mcg, Fentanyl up to 0.8mcg, 4mg IV midazolam ordered which was effective. May restart Levophed if needed. 010-Patient is sedated, propofol down to 10mcg, did increased phenylephrine to 4mcg, did not need to restart Levophed at this time. See Emar and vital trends. Original Note: Line Maintenance [id number] was calmly sedated on vent settings of FIO2 80% TV 300 PEEP 10 RR 18, SpO2 mostly 92-94%, would desat to <88% but recovers slowly. Phenylephrine at 3mcg/kg/min (Dbl strength) Vasopressin 0.03mcg/min, propofol 5mcg/kg/min, Fentanyl 0.5mcg/kg/hr. Insulin gtt at 1unit/hr. TPN/lipids infusing.
[2024-10-24] MEDS: metroNIDAZOLE 500 MG/100 ML PIGGYBACK 100 MG IV (02:40)
[2024-10-24] MEDS: PHENYLEPHRINE IV ×7 (02:40→23:02)
[2024-10-24] MEDS: SODIUM CHLORIDE 0.9% IV ×7 (02:40→23:02)
[2024-10-24 05:19] LABS: Alanine Aminotransferase 326 IU/L (<35); Albumin Globulin Ratio 0.8 (1.0-2.8); Alkaline Phosphatase 207 U/L (38-126); Aspartate Aminotransferase 675 IU/L (14-36); BUN Creatinine Ratio 10.7 (6-22); Blood Urea Nitrogen 18 mg/dL (7-17); Calcium 7.3 mg/dL (8.4-10.2); Chloride 108 mmol/L (98-107); Estimated Glomerular Filt Rate 36 mL/min (>60); Globulin 2.4 g/dL (1.7-4.1); Glucose 125 mg/dL (70-99); Magnesium 2.2 mg/dL (1.6-2.3); Sodium 129 mmol/L (137-145); Total Protein 4.4 g/dL (6.3-8.2)
[2024-10-24 05:26] LABS: HEMOLYSIS 52 (0-50)
[2024-10-24 05:27] LABS: Carbon Dioxide 9 mmol/L (22-32)
[2024-10-24 05:37] LABS: Base Excess ABG -13.4 mmol/L (-2-3); Blood Gas Collection Site Arterial Line; Blood Gas Mode Assist Cont Ventilat; Delivery System Adult Ventilator; HCO3 ABG 13 mmol/L (23-27); Oxygen Saturation ABG 99 % (95-100); PCO2 ABG 32.4 mmHg (35-45); PEEP 12; PO2 ABG 172 mmHg (80-100); Respiratory Rate 18; TCO2 ABG 13 mmol/L (23-27); pH ABG 7.22 (7.35-7.45)
[2024-10-24 06:21] LABS: Add Manual Diff / Slide Review NO; Basophils Absolute Auto 0 /uL (0-100); Basophils Percent Auto 0.1 % (0-2); Eosinophils Absolute Auto 100 /uL (0-450); Eosinophils Percent Auto 0.4 % (2-4); Hematocrit 23.2 % (36-46); Hemoglobin 8.7 g/dL (12.0-16.0); Lymphocytes Absolute Auto 1100 /uL (1100-4500); Lymphocytes Percent Auto 8.8 % (25-40); Mean Corpuscular HGB Conc 37.7 % (30-36); Mean Corpuscular Hemoglobin 32.8 PG (26-34); Mean Corpuscular Volume 87.1 fL (80-100); Monocytes Absolute Auto 300 /uL (0-900); Monocytes Percent Auto 2.3 % (3-14); Neutrophils Absolute Auto 11200 /uL (1500-7000); Neutrophils Percent Auto 88.4 % (50-75); Platelet Count 143 X10^3/uL (150-400); Red Blood Cell Count 2.66 X10^6/uL (4.0-5.2); Red Cell Distribution Width 16.7 % (11.6-14.8); White Blood Cell Count 12.7 X10^3/uL (4.5-11.0)
[2024-10-24 06:26] LABS: Phosphorous 2.9 mg/dL (2.5-4.5)
[2024-10-24] MEDS: HYDROCORTISONE 100 MG/2 ML VIAL IV ×3 (06:42→23:02)
[2024-10-24] MEDS: SODIUM BICARB 8.4% SYRINGE 50 MEQ IV ×3 (07:35→09:38)
[2024-10-24] MEDS: VASOPRESSIN 40 UNIT in SODIUM CHLORIDE 0.9% 100 ML 4.5 UNIT IV (07:39)
[2024-10-24] MEDS: INSULIN GLARGINE 100 UNIT/ML 3ML PEN 20 UNIT SUBCUT (08:40)
--- NOTE | 2024-10-24 08:45 | PC.NURSE ---
0830 - Per Dr Polk, DC Insulin drip 1 hour after adminstering Lantus. Hold 0830 short acting Insulin.
[2024-10-24] MEDS: ERTAPENEM 0.5 GM in SODIUM CHLORIDE 0.9% 100 ML IV (08:51)
--- NOTE | 2024-10-24 09:47 | P.TELICUPN_ITS ---
Subjective Subjective IF CAMERA ACTIVATED, patient seen via real-time interactive audiovisual communication: Camera activated Consent obtained for tele-public welfare worker care: Yes Patient Location: ICU Provider location (State): Other participants/roles: , RN, RT Interval history: Overnight: Vent adjusted increasing the PEEP ( 18/300/12/60% This am: remains on 2 pressors ( levo off, Kwadwo maxed & vaso) , oliguric Pt awake moving extremities while on fenatnyl and propfol for s , no acute distress Septic shock 2/2 aspiration PNA & ESBL UTI Aspiration PNA Acute hypoxic resp failure 2/2 aspiration PNA GAVINO 2/2 sepsis / ATN ALI 2/2 shock Sever hyperglycemia Hypoalbuminemia/ sever malnutrition/ FTT Hyponatremia ( corrected for BG 130) H/O of Alcohol withdrawal delirium,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 Sedation with propofol and fentanyl, consider adding precedex and wean off fenatnyl as tolerated IV Bumex 4 mg x1, check CXR Wean off sedatuion as tolrated for MAP goal 65 Continue with IV stress dose hydrocortisone Sodium bicarb 50 meq Q1h x3 and recheck of lactic acid and ABG ESBL UTI Ab switched to ertapenem, follow final resp, urine and blood Cx, may Dc Vanc if blood cx neg x48 hr IV insulin PPI for GI ppx Mechanical vte Hold statin and Gabapentin in the sitting of GAVINO H/O Benzodiazepine/baclofen dependence, stable. Consider giving a small dose of BZD and Baclofen daily to avoid withdrawal TPN for nutrition CCT 30 min D/W , RN, RT and pharmacist Current Medications Current Medications Medications: Home Medications baclofen 20 mg tablet 20 mg PO TID PRN Muscle Spasm 7 days #20 tabs 08/14/21 [Rx Confirmed 10/19/24] escitalopram oxalate 20 mg tablet 20 mg PO DAILY #90 tabs 05/13/23 [Rx Confirmed 10/19/24] clonazepam 0.5 mg tablet 0.5 mg PO BID PRN Anxiety #60 tabs 07/08/23 [Rx Confirmed 10/19/24] dicyclomine 10 mg capsule 10 mg PO 4XD PRN IBS 07/09/23 [History Confirmed 10/19/24] levothyroxine 75 mcg tablet 75 mcg PO DAILY Hypothyroidism 07/09/23 [History Confirmed 10/19/24] ondansetron HCl 8 mg tablet 8 mg PO Q8HR PRN Nausea And Vomiting 07/09/23 [History Confirmed 10/19/24] estradiol 0.5 mg tablet 0.5 mg PO DAILY Hormone replacement therapy #90 tabs 03/12/24 [Rx Confirmed 10/19/24] progesterone micronized 100 mg capsule (Prometrium) 100 mg PO QAM Hormone replacement #90 caps 03/12/24 [Rx Confirmed 10/19/24] albuterol sulfate 90 mcg/actuation aerosol inhaler 2 puff inhalation Q4H PRN wheezing 08/21/24 [History Confirmed 10/19/24] hydrochlorothiazide 25 mg tablet 25 mg PO DAILY 08/21/24 [History Confirmed 10/19/24] hydroxyzine HCl 50 mg tablet 50 mg PO Q6H PRN anxiety 08/21/24 [History Confirmed 10/19/24] propranolol 20 mg tablet 20 mg PO 3XD PRN Anxiety 30 days #60 tabs 09/15/24 [Rx Confirmed 10/19/24] Visit Medications (administered) Generic Name Dose Route Start Last Admin Trade Name Freq PRN Reason Stop Dose Admin Artificial Tears 1 drops 10/22/24 16:46 10/22/24 22:32 Carboxymethylcellulose Drops EYE-BOTH 1 1000units Q1H PRN Administration Dry Eye(s) Atorvastatin Calcium 80 mg 10/12/24 21:00 10/21/24 19:51 Atorvastatin 20 Mg Tablet PO 80 mg BEDTIME MIMI Administration Baclofen 20 mg 10/12/24 17:17 10/20/24 21:36 Baclofen 10 Mg Tablet PO 20 mg TID PRN Administration Muscle Spasm Clonazepam 0.5 mg 10/12/24 17:17 10/20/24 15:31 Clonazepam 0.5 Mg Tablet PO 0.5 mg BID PRN Administration Anxiety Docusate Sodium 100 mg 10/15/24 15:30 10/24/24 09:18 Docusate 100 Mg Capsule PO Not Given BID MIMI Escitalopram Oxalate 20 mg 10/13/24 09:00 10/23/24 10:54 Escitalopram 10 Mg Tablet PO Not Given DAILY MIMI Estradiol 0.5 mg 10/13/24 09:00 10/23/24 10:53 Estradiol 1 Mg Tablet PO Not Given DAILY MIMI Haloperidol 2 mg 10/12/24 18:08 10/22/24 11:16 Haloperidol 5 Mg/Ml Vial IV 2 mg Q1HR PRN Administration Hallucinations Heparin Sodium (Porcine) 5,000 unit 10/20/24 09:00 10/24/24 09:46 Heparin 5,000 Unit/Ml Vial SUBCUT Not Given BID MIMI Hydrocortisone 100 mg 10/22/24 15:00 10/24/24 06:42 Hydrocortisone 100 Mg/2 Ml Vial IV 100 mg Q8H MIMI Administration Hydromorphone HCl 0.5 mg 10/14/24 18:31 10/16/24 18:44 Hydromorphone 0.5 Mg Inj IV 0.5 mg Q2H PRN Administration Pain, Severe (7-10) Hydromorphone HCl 2 mg 10/15/24 17:15 10/22/24 00:05 Hydromorphone 2 Mg Tablet PO 2 mg Q3H PRN Administration Pain, Severe (7-10) NOREPINEPHRINE BITARTRATE/D5W 4 mg in 250 mls @ 15.598 mls/hr 10/22/24 11:42 10/23/24 18:07 Levophed IV 0 mcg/kg/min TITRATE MIMI 0 mls/hr Titration Protocol 0.1 MCG/KG/MIN Propofol 1,000 mg in 100 mls @ 1.248 mls/hr 10/22/24 12:45 10/24/24 05:46 Diprivan IV 10 mcg/kg/min TITRATE MIMI 2.496 mls/hr Titration Protocol 5 MCG/KG/MIN Vasopressin 40 unit/ Sodium 102 mls @ 4.5 mls/hr 10/22/24 13:48 10/24/24 07:39 Chloride IV 4.5 mls/hr CONT MIMI Administration INSULIN DRIP PREMIX 100 unit in 100 mls @ 6 mls/hr 10/23/24 06:15 10/24/24 09:40 Myxredlin Drip Premix IV 0 mls/hr TITRATE MIMI 0 mls/hr Titration Protocol Thiamine HCl 100 mg/ 514 mls @ 21.417 mls/hr 10/23/24 18:00 10/23/24 16:57 Multivitamins 10 ml/ Chromium/ IV 10/24/24 17:59 21.417 mls/hr Copper/Manganese/Seleni/Zn 1 1800 MIMI Administration ml/ Magnesium Sulfate 1 gm/ Amino Acids/Electrolytes Phenylephrine HCl 40,000 mcg/ 254 mls @ 31.25 mls/hr 10/23/24 13:30 10/24/24 06:43 Sodium Chloride IV 77.8 mls/hr TITRATE MIMI 77.8 mls/hr Administration Protocol Fentanyl 1,000 mcg/ Sodium 250 mls @ 7.279 mls/hr 10/23/24 13:30 10/24/24 02:47 Chloride IV 0.7 mcg/kg/hr TITRATE MIMI 7.279 mls/hr Titration Protocol 0.7 MCG/KG/HR Ertapenem 0.5 gm/ Sodium 100 mls @ 200 mls/hr 10/24/24 08:30 10/24/24 08:51 Chloride IV 10/24/24 10:00 200 mls/hr Q24H MIMI Administration Insulin Glargine 20 unit 10/24/24 09:00 10/24/24 08:40 Insulin Glargine 100 Unit/Ml 3ml Pen SUBCUT 20 unit DAILY [facility] Administration Insulin Human Lispro 0 unit 10/24/24 08:30 10/24/24 08:45 Insulin Lispro 100 Unit/Ml 3ml Vial SUBCUT Not Given Q6H [facility] Protocol Levothyroxine Sodium 75 mcg 10/13/24 06:00 10/24/24 05:45 Levothyroxine 75 Mcg Tablet PO Not Given DAILY@0600 [facility] Multivitamins 1 tab 10/13/24 09:00 10/23/24 10:53 Multivitamin 1 Tablet PO Not Given DAILY [facility] Ondansetron HCl 4 mg 10/12/24 18:08 10/21/24 23:25 Ondansetron 4 Mg/2 Ml Inj IV 4 mg Q6HR PRN Administration Nausea And Vomiting Pantoprazole Sodium 40 mg 10/22/24 16:20 10/23/24 21:20 Pantoprazole 40 Mg Vial IV 40 mg BID [facility] Administration Polyethylene Glycol 17 gm 10/15/24 15:30 10/24/24 09:18 Polyethylene Glycol 3350 17 Gm Powd.Pack PO Not Given DAILY [facility] Progesterone 100 mg 10/13/24 09:00 10/23/24 10:53 Progesterone, Micronized 100 Mg Capsule PO Not Given DAILY [facility] Sennosides 8.6 mg 10/15/24 15:27 10/15/24 15:34 Sennosides 8.6 Mg Tablet PO 8.6 mg BEDTIME PRN Administration Constipation Sodium Chloride 10 ml 10/12/24 21:00 10/24/24 09:17 Sodium Chloride 0.9% Flush IV Not Given BID MIMI Sodium Chloride 10 ml 10/12/24 18:21 10/13/24 01:29 Sodium Chloride 0.9% Flush IV 10 ml PRN PRN Administration Flush Objective Ventilator Parameters: Ventilator Settings FiO2 60 RT Vent Frequency 18 Ventilator Tidal Volume 300 Exhaled Positive End Expiratory 12 Pressure Inspiratory Phase Time 0.9 I:E Ratio 1:2.8 Patient Position HOB >= 30 degrees Labs 10/24/24 04:50 10/24/24 04:50 Labs: Laboratory Results - last 24 hr 10/23/24 10/23/24 10/24/24 11:30 12:00 04:50 WBC 12.7 H RBC 2.66 L Hgb 8.7 L Hct 23.2 L MCV 87.1 MCH 32.8 MCHC 37.7 H RDW 16.7 H Plt Count 143 L Neut % (Auto) 88.4 H Lymph % (Auto) 8.8 L Lee % (Auto) 2.3 L Eos % (Auto) 0.4 L Baso % (Auto) 0.1 Neut # (Auto) 97158 H Lymph # (Auto) 1100 Lee # (Auto) 300 Eos # (Auto) 100 Baso # (Auto) 0 ABG Sample Site ABG pH ABG pCO2 ABG pO2 ABG HCO3 ABG Total CO2 ABG O2 Saturation ABG Base Excess Pino Test Respiration Rate O2 Delivery Device Mode of Support FiO2 % PEEP or CPAP Sodium 127 L 129 L Potassium 3.0 L 4.0 Chloride 110 H 108 H Carbon Dioxide 8 L* 9 L* BUN 16 18 H Creatinine 1.40 H 1.68 H Estimated GFR 45 L 36 L BUN/Creatinine Ratio 11.4 10.7 Glucose 227 H D 125 H D Calcium 8.1 L 7.3 L Phosphorus 2.2 L 2.9 Magnesium 2.2 2.2 Total Bilirubin 4.1 H 5.0 H AST 811 H 675 H ALT 385 H 326 H Alkaline Phosphatase 206 H 207 H Total Protein 4.2 L 4.4 L Albumin 1.9 L 2.0 L Globulin 2.3 2.4 Albumin/Globulin Ratio 0.8 L 0.8 L Prealbumin 6.1 L 10/24/24 05:34 WBC RBC Hgb Hct MCV MCH MCHC RDW Plt Count Neut % (Auto) Lymph % (Auto) Lee % (Auto) Eos % (Auto) Baso % (Auto) Neut # (Auto) Lymph # (Auto) Lee # (Auto) Eos # (Auto) Baso # (Auto) ABG Sample Site Arterial line ABG pH 7.22 L* ABG pCO2 32.4 L ABG pO2 172 H ABG HCO3 13 L ABG Total CO2 13 L ABG O2 Saturation 99 ABG Base Excess -13.4 L Pino Test N/a Respiration Rate 18 O2 Delivery Device Adult ventilator Mode of Support Assist cont ventilat FiO2 % 70 % PEEP or CPAP 12 Sodium Potassium Chloride Carbon Dioxide BUN Creatinine Estimated GFR BUN/Creatinine Ratio Glucose Calcium Phosphorus Magnesium Total Bilirubin AST ALT Alkaline Phosphatase Total Protein Albumin Globulin Albumin/Globulin Ratio Prealbumin Exam Vital Signs (past 8 hours): - 10/24/24 02:00 10/24/24 02:00 10/24/24 02:15 Temperature Pulse Rate 108 H 109 H Respiratory Rate 21 20 Blood Pressure 93/60 Pulse Oximetry 98 94 Oxygen Delivery Method 10/24/24 02:30 10/24/24 02:30 10/24/24 02:45 Temperature Pulse Rate 109 H 107 H Respiratory Rate 16 17 Blood Pressure 91/62 Pulse Oximetry 100 100 Oxygen Delivery Method 10/24/24 03:00 10/24/24 03:00 10/24/24 03:15 Temperature Pulse Rate 106 H 105 H Respiratory Rate 17 17 Blood Pressure 91/60 Pulse Oximetry 100 100 Oxygen Delivery Method 10/24/24 03:30 10/24/24 03:30 10/24/24 03:45 Temperature Pulse Rate 104 H 104 H Respiratory Rate 18 18 Blood Pressure 92/59 L Pulse Oximetry 100 100 Oxygen Delivery Method 10/24/24 04:00 10/24/24 04:00 10/24/24 04:00 Temperature Pulse Rate 104 H Respiratory Rate 16 Blood Pressure 88/62 L Pulse Oximetry 100 Oxygen Delivery Method Mechanical Ventilation 10/24/24 04:15 10/24/24 04:30 10/24/24 04:30 Temperature Pulse Rate 107 H 108 H Respiratory Rate 21 21 Blood Pressure 93/64 Pulse Oximetry 92 93 Oxygen Delivery Method 10/24/24 04:45 10/24/24 05:00 10/24/24 05:00 Temperature Pulse Rate 109 H 106 H Respiratory Rate 20 18 Blood Pressure 92/59 L Pulse Oximetry 92 100 Oxygen Delivery Method 10/24/24 05:15 10/24/24 05:30 10/24/24 05:30 Temperature Pulse Rate 104 H 103 H Respiratory Rate 18 19 Blood Pressure 93/62 Pulse Oximetry 100 100 Oxygen Delivery Method 10/24/24 05:45 10/24/24 06:00 10/24/24 06:00 Temperature Pulse Rate 102 H 101 H Respiratory Rate 17 17 Blood Pressure 93/56 L Pulse Oximetry 100 100 Oxygen Delivery Method 10/24/24 06:15 10/24/24 06:30 10/24/24 06:30 Temperature Pulse Rate 101 H 101 H Respiratory Rate 19 18 Blood Pressure 91/60 Pulse Oximetry 100 100 Oxygen Delivery Method 10/24/24 06:45 10/24/24 07:00 10/24/24 07:00 Temperature Pulse Rate 101 H 101 H Respiratory Rate 18 18 Blood Pressure 90/64 Pulse Oximetry 100 100 Oxygen Delivery Method 10/24/24 07:15 10/24/24 07:30 10/24/24 07:30 Temperature Pulse Rate 101 H 101 H Respiratory Rate 17 18 Blood Pressure 94/59 L Pulse Oximetry 100 100 Oxygen Delivery Method 10/24/24 07:45 10/24/24 07:49 10/24/24 08:00 Temperature 98.5 F Pulse Rate 105 H Respiratory Rate 20 Blood Pressure Pulse Oximetry 90 L Oxygen Delivery Method Mechanical Ventilation Fraction of Inspired Oxygen 80 Oxygen Delivery Method Mechanical Ventilation [facility] Embol[facility] Present on Admission: No Assessment & Plan Time-Based Coding :: [TOTAL MINUTES] spent with patient and on the chart (including review of chart, obtaining history, exam, reviewing outside data, placing orders, documenting exam and treatment plan, and counseling patient) on [DATE].
[2024-10-24] MEDS: ESCITALOPRAM 10 MG TABLET 20 MG PO (09:50)
[2024-10-24] MEDS: PANTOPRAZOLE 40 MG VIAL IV ×2 (10:22→20:45)
--- NOTE | 2024-10-24 10:45 | DI.RAD.S_ITS ---
5PROCEDURE: XR CHEST 1V INDICATIONS: Intubated, daily chest X-ray TECHNIQUE: One view of the chest was acquired. COMPARISON: [facility], CT, CT CHEST ABD PEL WO CON, 10/22/2024, 17:26. [facility], CR, XR CHEST 1V, 10/23/2024, 11:04. FINDINGS: Surgical changes and devices: An endotracheal tube is seen, with the tip 2 cm above the марина. The tip of the gastric tube can be seen overlying the mid stomach, with the side the diaphragm. A stable right-sided central line is seen. Lungs and pleura: Lung volumes are low. Generalized interstitial prominence can be seen. No large pneumothorax is seen. Mediastinum: Mediastinal contours appear normal. Heart size is normal. Bones and chest wall: No suspicious bony lesions. Overlying soft tissues appear unremarkable. IMPRESSION: The tip of the endotracheal tube is seen 2 cm above the марина, which is improved from the prior. Generalized interstitial type infiltrates are seen, which are stable. Dictated by: Ld Jimenez M.D. on 10/24/2024 at 10:27 Approved by: Ld Jimenez M.D. on 10/24/2024 at 10:28
[2024-10-24 11:08] LABS: Blood Gas Collection Site Left Radial; Blood Gas Mode Assist Cont Ventilat; Delivery System Adult Ventilator; HCO3 ABG 17 mmol/L (23-27); Oxygen Saturation ABG 99 % (95-100); PCO2 ABG 32.7 mmHg (35-45); PEEP 12; PO2 ABG 154 mmHg (80-100); Respiratory Rate 18; TCO2 ABG 17 mmol/L (23-27); pH ABG 7.33 (7.35-7.45)
[2024-10-24 14:10] LABS: Ionized Calcium 4.3 mg/dL (4.5-5.6)
[2024-10-24] MEDS: BUMETANIDE 1 MG/4 ML VIAL 2 MG IV (14:10)
--- NOTE | 2024-10-24 15:27 | P.PN_ITS ---
Subjective Subjective Interval history: Summary: She is a 54-year-old female who presented with weakness and electrolyte abnormalities in context of severe alcohol use disorder. She was also noted to have a subacute infarct and stroke. on 10/22 patient transferred to the ICU with septic shock likely due to aspiration pneumonia. Today she is more stable, though critically ill. On 2 pressors as of this morning with minimal UOP. Attempting bumex for diuresis. CXR appears stable. Urine cultures grew ESBL organism changed to ertapenem today. Exam Vital Signs (past 8 hours): - 10/24/24 07:30 10/24/24 07:30 10/24/24 07:45 Temperature Pulse Rate 101 H 105 H Respiratory Rate 18 20 Blood Pressure 94/59 L Pulse Oximetry 100 90 L Oxygen Delivery Method 10/24/24 07:49 10/24/24 08:00 10/24/24 08:00 Temperature 98.5 F Pulse Rate 101 H Respiratory Rate 18 Blood Pressure Pulse Oximetry 100 Oxygen Delivery Method Mechanical Ventilation 10/24/24 08:00 10/24/24 08:15 10/24/24 08:30 Temperature Pulse Rate 100 H Respiratory Rate 18 Blood Pressure 88/58 L 86/55 L Pulse Oximetry 100 Oxygen Delivery Method 10/24/24 08:30 10/24/24 08:45 10/24/24 09:00 Temperature Pulse Rate 100 H 98 H 101 H Respiratory Rate 16 18 20 Blood Pressure Pulse Oximetry 100 100 100 Oxygen Delivery Method 10/24/24 09:00 10/24/24 09:15 10/24/24 09:30 Temperature Pulse Rate 101 H 102 H Respiratory Rate 20 20 Blood Pressure 89/66 L Pulse Oximetry 98 93 Oxygen Delivery Method 10/24/24 09:30 10/24/24 09:45 10/24/24 10:00 Temperature Pulse Rate 106 H 104 H Respiratory Rate 21 21 Blood Pressure 99/56 L Pulse Oximetry 91 94 Oxygen Delivery Method 10/24/24 10:00 10/24/24 10:15 10/24/24 10:30 Temperature Pulse Rate 102 H Respiratory Rate 19 Blood Pressure 93/66 93/55 L Pulse Oximetry 95 Oxygen Delivery Method 10/24/24 10:30 10/24/24 10:45 10/24/24 11:00 Temperature Pulse Rate 98 H 98 H 98 H Respiratory Rate 19 18 16 Blood Pressure Pulse Oximetry 100 100 100 Oxygen Delivery Method 10/24/24 11:00 10/24/24 11:15 10/24/24 11:30 Temperature Pulse Rate 100 H 100 H Respiratory Rate 19 18 Blood Pressure 91/54 L Pulse Oximetry 98 100 Oxygen Delivery Method 10/24/24 11:30 10/24/24 11:45 10/24/24 12:00 Temperature Pulse Rate 100 H Respiratory Rate 18 Blood Pressure 90/53 L Pulse Oximetry 99 Oxygen Delivery Method Mechanical Ventilation 10/24/24 12:00 10/24/24 12:00 10/24/24 12:15 Temperature Pulse Rate 100 H 100 H Respiratory Rate 16 17 Blood Pressure 88/59 L Pulse Oximetry 99 100 Oxygen Delivery Method 10/24/24 12:30 10/24/24 12:30 10/24/24 12:45 Temperature Pulse Rate 100 H 100 H Respiratory Rate 19 17 Blood Pressure 88/58 L Pulse Oximetry 99 99 Oxygen Delivery Method 10/24/24 13:00 10/24/24 13:00 10/24/24 13:15 Temperature Pulse Rate 100 H 100 H Respiratory Rate 19 16 Blood Pressure 93/62 Pulse Oximetry 100 100 Oxygen Delivery Method 10/24/24 13:30 10/24/24 13:30 10/24/24 13:45 Temperature Pulse Rate 98 H 98 H Respiratory Rate 15 18 Blood Pressure 93/62 Pulse Oximetry 99 100 Oxygen Delivery Method 10/24/24 14:00 10/24/24 14:00 10/24/24 14:15 Temperature Pulse Rate 98 H 97 H Respiratory Rate 17 18 Blood Pressure 89/62 L Pulse Oximetry 100 99 Oxygen Delivery Method Fraction of Inspired Oxygen 80 Oxygen Delivery Method Mechanical Ventilation Oxygen Flow Rate 4 Narrative Exam Narrative: She is cachectic, and frail. Now intubated and sedated. Diffuse scattered rhonchi tachycardic, regular rhythm, no m/r/g Abdomen is soft, non distended. Extremities are free of edema. Objective Labs 10/24/24 04:50 10/24/24 04:50 Labs: Laboratory Results - last 24 hr 10/23/24 10/24/24 10/24/24 11:30 04:50 05:34 WBC 12.7 H RBC 2.66 L Hgb 8.7 L Hct 23.2 L MCV 87.1 MCH 32.8 MCHC 37.7 H RDW 16.7 H Plt Count 143 L Neut % (Auto) 88.4 H Lymph % (Auto) 8.8 L [place] % (Auto) 2.3 L Eos % (Auto) 0.4 L Baso % (Auto) 0.1 Neut # (Auto) 01909 H Lymph # (Auto) 1100 [place] # (Auto) 300 Eos # (Auto) 100 Baso # (Auto) 0 ABG Sample Site Arterial line ABG pH 7.22 L* ABG pCO2 32.4 L ABG pO2 172 H ABG HCO3 13 L ABG Total CO2 13 L ABG O2 Saturation 99 ABG Base Excess -13.4 L Pino Test N/a Respiration Rate 18 O2 Delivery Device Adult ventilator Mode of Support Assist cont ventilat FiO2 % 70 % PEEP or CPAP 12 Sodium 129 L Potassium 4.0 Chloride 108 H Carbon Dioxide 9 L* BUN 18 H Creatinine 1.68 H Estimated GFR 36 L BUN/Creatinine Ratio 10.7 Glucose 125 H D Calcium 7.3 L Ionized Calcium Alana 4.3 L Phosphorus 2.2 L 2.9 Magnesium 2.2 Total Bilirubin 5.0 H AST 675 H ALT 326 H Alkaline Phosphatase 207 H Total Protein 4.4 L Albumin 2.0 L Globulin 2.4 Albumin/Globulin Ratio 0.8 L Prealbumin 6.1 L 10/24/24 11:04 WBC RBC Hgb Hct MCV MCH MCHC RDW Plt Count Neut % (Auto) Lymph % (Auto) [place] % (Auto) Eos % (Auto) Baso % (Auto) Neut # (Auto) Lymph # (Auto) [place] # (Auto) Eos # (Auto) Baso # (Auto) ABG Sample Site Left radial ABG pH 7.33 L ABG pCO2 32.7 L ABG pO2 154 H ABG HCO3 17 L ABG Total CO2 17 L ABG O2 Saturation 99 ABG Base Excess -8.0 L Pino Test N/a Respiration Rate 18 O2 Delivery Device Adult ventilator Mode of Support Assist cont ventilat FiO2 % 60.0 % PEEP or CPAP 12 Sodium Potassium Chloride Carbon Dioxide BUN Creatinine Estimated GFR BUN/Creatinine Ratio Glucose Calcium Ionized Calcium Alana Phosphorus Magnesium Total Bilirubin AST ALT Alkaline Phosphatase Total Protein Albumin Globulin Albumin/Globulin Ratio Prealbumin [facility] Medical History Amenorrhea Neuropathy Chronic venous insufficiency Obstructive sleep apnea (Unknown) GERD (gastroesophageal reflux disease) (Unknown) Allergy (Unknown) Restless leg syndrome (2014) Anxiety (1989) Shoulder pain (Unknown) Foot pain (2003) Chronic back pain (Unknown) Vertigo (1979) Painful menstrual periods (Unknown) Heavy menses (Unknown) IBS (irritable bowel syndrome) (1985) Surgical History 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) Hx of sinus surgery (2011) History of removal of laparoscopic gastric banding device (2014) Hx of laparoscopic gastric banding (2011) Family History Grandmother Cancer Mental health problem Mother Age: 76 Mental health disorder Sister Age: 58 Heart disease Hypertension High cholesterol Mental health problem Asthma COPD (chronic obstructive pulmonary disease) Social History household members: spouse and family Smoking Status: Current every day smoker Tobacco: How many years used: 10 second hand exposure: No alcohol intake: current substance use type: does not use Assessment & Plan Assessment & Plan narrative: 1. Acute and subacute right frontal and possible left parietal punctate infarcts, Stable. Continue high-intensity statin therapy, aspirin. - repeat head CT 10/22 with no acute findings. 2. 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 4. Alcohol withdrawal delirium, resolved. 5. Benzodiazepine/baclofen dependence, stable. 6. Peripheral neuropathy, stable. 7. Failure to thrive/debility, active. She is on a citalopram for depression. 8. Hypokalemia, active. 9. Acute on chronic anemia, Stable. 10. Hypoglycemia, improved. NEW diagnoses 10/22 1. Septic shock, not present on admission, due to aspiration pneumonia, ESBL E. coli acute cystitis. 2. Shock liver 3. GAVINO 4. Acute metabolic encephalopathy 5. Acute on chronic anemia, possible GI bleeding. 6. Hyperglycemia PLAN: -tele-director child abuse therapy consult for help with pressors and management. Appreciate their assistance. -Patient with worsening bilateral pulmonary diffuse infiltrates on CXR. Either pulmonary edema or ARDS. No hemopytsis / secretions. Minimal response to 40 IV lasix yesterday with continued low UOP. Gave 2 mg bumex x1. -sedation with propofol and fentanyl, can add precedex to wean off fentanyl too. -Currently on 2 pressors, weaned 1st levophed, then Kwadwo, then Vaso per director child abuse therapy. May need to restart levophed if low BP with bumex today. -also on stress dose hydrocortisone. -Hypocalcemia repeleted -Agile Coach implementing sodium bicarb infusion given acidosis. -Urine cultures with ESBL E. coli. Changed to ertapenem today. Continue treatment at least 7 days. With negative MRSA swab MRSA infection unlikely will hold on vacn. -transitioned from insulin infusion to lantus 20 units daily with sliding scale. Continue to adjust as needed. -continue IV PPI -started TPN per pharmacy I spent 40 minutes providing critical care management this patient. This excludes time spent in performing separately billed procedures. Dispo: remains ICU. Prognosis is poor GOC: changed 10/23 to DNR after goals of care discussion with spouse. Time-Based Coding :: [TOTAL MINUTES] spent with patient and on the chart (including review of chart, obtaining history, exam, reviewing outside data, placing orders, documenting exam and treatment plan, and counseling patient) on [DATE]. Quality VTE Deep Vein Thrombosis/Pulmonary Embolism Present on Admission: No
[2024-10-24] MEDS: LYTES IV (17:22)
[2024-10-24] MEDS: DEXT IV (17:22)
[2024-10-24] MEDS: THIAMINE IV (17:22)
[2024-10-24] MEDS: [UNRECOGNIZED DRUG - OTHER] IV (17:22)
[2024-10-24] MEDS: MULTIVITAMIN IV (17:22)
[2024-10-24] MEDS: CALCIUM IV (17:22)
[2024-10-24] MEDS: propofoL 1,000 MG/100 ML VIAL 2.496 MG IV (17:27)
[2024-10-24] MEDS: INSULIN LISPRO 100 UNIT/ML 3ML VIAL SUBCUT (20:45)
[2024-10-24] MEDS: SODIUM CHLORIDE 0.9% FLUSH 10 ML IV (20:46)
[2024-10-25] VITALS (49 sets, daily range): BP systolic 50–109; BP diastolic 27–71; PULSE 93–104; RESP 10–28; O2SAT 45–100
[2024-10-25] MEDS: SODIUM CHLORIDE 0.9% IV ×3 (02:16→08:49)
[2024-10-25] MEDS: PHENYLEPHRINE IV ×3 (02:16→08:49)
[2024-10-25] MEDS: INSULIN LISPRO 100 UNIT/ML 3ML VIAL SUBCUT ×2 (02:44→08:56)
[2024-10-25] MEDS: VASOPRESSIN 40 UNIT in SODIUM CHLORIDE 0.9% 100 ML 4.5 UNIT IV (04:26)
[2024-10-25] MEDS: fentaNYL 1,000 MCG in SODIUM CHLORIDE 0.9% 230 ML 7.279 MCG IV (05:31)
[2024-10-25 05:40] LABS: Base Excess ABG -9.7 mmol/L (-2-3); Blood Gas Collection Site Arterial Line; Blood Gas Mode Assist Cont Ventilat; Delivery System Adult Ventilator; HCO3 ABG 16 mmol/L (23-27); Oxygen Saturation ABG 96 % (95-100); PCO2 ABG 34.9 mmHg (35-45); PO2 ABG 93 mmHg (80-100); Respiratory Rate 18; TCO2 ABG 16 mmol/L (23-27); pH ABG 7.28 (7.35-7.45)
[2024-10-25 06:02] LABS: Add Manual Diff / Slide Review NO; Basophils Absolute Auto 0 /uL (0-100); Basophils Percent Auto 0.3 % (0-2); Eosinophils Absolute Auto 0 /uL (0-450); Eosinophils Percent Auto 0.1 % (2-4); Hematocrit 21.1 % (36-46); Hemoglobin 7.3 g/dL (12.0-16.0); Lymphocytes Absolute Auto 2300 /uL (1100-4500); Lymphocytes Percent Auto 17.3 % (25-40); Mean Corpuscular HGB Conc 34.5 % (30-36); Mean Corpuscular Hemoglobin 29.6 PG (26-34); Monocytes Absolute Auto 400 /uL (0-900); Monocytes Percent Auto 3.2 % (3-14); Neutrophils Absolute Auto 10500 /uL (1500-7000); Neutrophils Percent Auto 79.1 % (50-75); Platelet Count 126 X10^3/uL (150-400); Red Blood Cell Count 2.45 X10^6/uL (4.0-5.2); Red Cell Distribution Width 16.3 % (11.6-14.8); White Blood Cell Count 13.2 X10^3/uL (4.5-11.0)
[2024-10-25 06:09] LABS: Alanine Aminotransferase 289 IU/L (<35); Albumin 1.9 g/dL (3.5-5.0); Albumin Globulin Ratio 0.8 (1.0-2.8); Alkaline Phosphatase 305 U/L (38-126); Aspartate Aminotransferase 707 IU/L (14-36); BUN Creatinine Ratio 11.4 (6-22); Bilirubin Total 4.6 mg/dL (0.2-1.3); Blood Urea Nitrogen 23 mg/dL (7-17); Calcium 7.1 mg/dL (8.4-10.2); Carbon Dioxide 14 mmol/L (22-32); Chloride 109 mmol/L (98-107); Estimated Glomerular Filt Rate 29 mL/min (>60); Globulin 2.4 g/dL (1.7-4.1); Glucose 234 mg/dL (70-99); HEMOLYSIS 35 (0-50); Magnesium 2.3 mg/dL (1.6-2.3); Potassium 3.5 mmol/L (3.4-5.1); Sodium 132 mmol/L (137-145); Total Protein 4.3 g/dL (6.3-8.2)
[2024-10-25 06:15] LABS: Triglycerides 308 mg/dL (35-150)
[2024-10-25 07:07] LABS: Phosphorous 2.9 mg/dL (2.5-4.5)
--- NOTE | 2024-10-25 07:08 | DIET.CONS ---
Dietary Consultation Note Admission Date: 10/12/2024 16:27 Pt completed 0.5L Clinimix E TPN yesterday providing 440kcals/25g PRO and advanced to sepsis goal of 1L running at 42ml/h providing 880kcals and 50g PRO. Pt with worsening renal fxn, concern for fluid status. Goal TPN provides 23mL/kg/d fluid. TPN includes 100mg thiamine. K+ 3.5 wnl, Phos 2.9 wnl, Mg 2.3 wnl BG 234 H Ht: 152.4 cm Wt: 41.594 kg BMI: 17.9 Last BM: 10/25/24 (10/25/24 06:32) MNA: 4 Santosh Score: 12 Diet: 10/22/24 15:19 NPO Diet Diet Modifications: on vent NPO Type: Strict Labs: RBC 2.45 X10^6/uL (4.0-5.2) L 10/25/24 05:30 Hgb 7.3 g/dL (12.0-16.0) L 10/25/24 05:30 Hct 21.1 % (36-46) L 10/25/24 05:30 Creatinine 2.01 mg/dL (0.52-1.04) H 10/25/24 05:30 Hemoglobin A1c < 4.0 % (4.0-6.0) L 10/12/24 06:40 Lactate 2.8 mmol/L (0.7-2.1) H 10/23/24 02:10 Interventions: 1. Continue TPN at goal rate as tolerated, consideration for fluid status and renal fxn with total fluids. TPN provides 23mL/kg/d. 2. Recc lipid emulsion reduced from every other day to once per week until liver function improves. 3. Continue monitoring and repleting electrolytes per protocol. 4. Close BG monitoring. EER: per critical care sepsis Monitoring/Evaluations: f/u Saturday Electronically Signed by: Gabrielle Myrick 10/25/24 07:08 Clinical Dietitian [address] [id number]
[2024-10-25] MEDS: HYDROCORTISONE 100 MG/2 ML VIAL IV (07:52)
[2024-10-25] MEDS: ERTAPENEM 0.5 GM in SODIUM CHLORIDE 0.9% 100 ML IV (07:52)
[2024-10-25] MEDS: INSULIN GLARGINE 100 UNIT/ML 3ML PEN 24 UNIT SUBCUT (08:55)
[2024-10-25] MEDS: ESCITALOPRAM 10 MG TABLET 20 MG PO (09:02)
[2024-10-25] MEDS: PANTOPRAZOLE 40 MG VIAL IV (09:02)
--- NOTE | 2024-10-25 09:35 | PM.PN.EICU ---
Subjective Subjective IF CAMERA ACTIVATED, patient seen via real-time interactive audiovisual communication: Camera activated Consent obtained for tele-leather worker care: Yes Patient Location: ICU Provider location (State): Other participants/roles: MD, RN, RT Interval history: This am: remains on 2 pressors ( levo off, Kwadwo weaned down to 150 mcg/min & vaso) , oliguanuric Pt is sedatd with fenatnyl and propfol Septic shock 2/2 aspiration PNA & ESBL UTI Aspiration PNA Acute hypoxic resp failure 2/2 aspiration PNA GAVINO 2/2 sepsis / ATN ALI 2/2 shock Sever hyperglycemia Hypoalbuminemia/ sever malnutrition/ FTT Hyponatremia ( corrected for BG 130) H/O of Alcohol withdrawal delirium,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 Sedation with propofol and fentanyl, SAT IV Bumex 4 mg x1, oending CXR Wean off pressor as tolrated for MAP goal 65 Continue with IV stress dose hydrocortisone Sodium bicarb 50 meq Q1h x3 ESBL UTI on ertapenem, follow final resp, urine and blood Cx, stopped Vanc as blood cx neg x48 hr IV insulin PPI for GI ppx Mechanical vte, PEEP 12-->10 Hold statin and Gabapentin in the sitting of GAVINO H/O Benzodiazepine/baclofen dependence, stable. On a small dose of BZD and Baclofen daily to avoid withdrawal TPN for nutrition CCT 30 min Consider transfer to higher level of care given the worsening renal function and need for CRRT D/W , RN, RT and pharmacist Current Medications Current Medications Medications: Home Medications baclofen 20 mg tablet 20 mg PO TID PRN Muscle Spasm 7 days #20 tabs 08/14/21 [Rx Confirmed 10/19/24] escitalopram oxalate 20 mg tablet 20 mg PO DAILY #90 tabs 05/13/23 [Rx Confirmed 10/19/24] clonazepam 0.5 mg tablet 0.5 mg PO BID PRN Anxiety #60 tabs 07/08/23 [Rx Confirmed 10/19/24] dicyclomine 10 mg capsule 10 mg PO 4XD PRN IBS 07/09/23 [History Confirmed 10/19/24] levothyroxine 75 mcg tablet 75 mcg PO DAILY Hypothyroidism 07/09/23 [History Confirmed 10/19/24] ondansetron HCl 8 mg tablet 8 mg PO Q8HR PRN Nausea And Vomiting 07/09/23 [History Confirmed 10/19/24] estradiol 0.5 mg tablet 0.5 mg PO DAILY Hormone replacement therapy #90 tabs 03/12/24 [Rx Confirmed 10/19/24] progesterone micronized 100 mg capsule (Prometrium) 100 mg PO QAM Hormone replacement #90 caps 03/12/24 [Rx Confirmed 10/19/24] albuterol sulfate 90 mcg/actuation aerosol inhaler 2 puff inhalation Q4H PRN wheezing 08/21/24 [History Confirmed 10/19/24] hydrochlorothiazide 25 mg tablet 25 mg PO DAILY 08/21/24 [History Confirmed 10/19/24] hydroxyzine HCl 50 mg tablet 50 mg PO Q6H PRN anxiety 08/21/24 [History Confirmed 10/19/24] propranolol 20 mg tablet 20 mg PO 3XD PRN Anxiety 30 days #60 tabs 09/15/24 [Rx Confirmed 10/19/24] Visit Medications (administered) Generic Name Dose Route Start Last Admin Trade Name Freq PRN Reason Stop Dose Admin Artificial Tears 1 drops 10/22/24 16:46 10/22/24 22:32 Carboxymethylcellulose Drops EYE-BOTH 1 1000units Q1H PRN Administration Dry Eye(s) Atorvastatin Calcium 80 mg 10/12/24 21:00 10/21/24 19:51 Atorvastatin 20 Mg Tablet PO 80 mg BEDTIME MIMI Administration Baclofen 20 mg 10/12/24 17:17 10/20/24 21:36 Baclofen 10 Mg Tablet PO 20 mg TID PRN Administration Muscle Spasm Baclofen 10 mg 10/24/24 21:00 10/24/24 20:46 Baclofen 10 Mg Tablet PO Not Given BID MIMI Clonazepam 0.5 mg 10/12/24 17:17 10/20/24 15:31 Clonazepam 0.5 Mg Tablet PO 0.5 mg BID PRN Administration Anxiety Docusate Sodium 100 mg 10/15/24 15:30 10/25/24 08:31 Docusate 100 Mg Capsule PO Not Given BID MIMI Escitalopram Oxalate 20 mg 10/13/24 09:00 10/25/24 09:02 Escitalopram 10 Mg Tablet PO 20 mg DAILY MIMI Administration Haloperidol 2 mg 10/12/24 18:08 10/22/24 11:16 Haloperidol 5 Mg/Ml Vial IV 2 mg Q1HR PRN Administration Hallucinations Hydrocortisone 100 mg 10/22/24 15:00 10/25/24 07:52 Hydrocortisone 100 Mg/2 Ml Vial IV 100 mg Q8H MIMI Administration Hydromorphone HCl 0.5 mg 10/14/24 18:31 10/16/24 18:44 Hydromorphone 0.5 Mg Inj IV 0.5 mg Q2H PRN Administration Pain, Severe (7-10) Hydromorphone HCl 2 mg 10/15/24 17:15 10/22/24 00:05 Hydromorphone 2 Mg Tablet PO 2 mg Q3H PRN Administration Pain, Severe (7-10) NOREPINEPHRINE BITARTRATE/D5W 4 mg in 250 mls @ 15.598 mls/hr 10/22/24 11:42 10/23/24 18:07 Levophed IV 0 mcg/kg/min TITRATE MIMI 0 mls/hr Titration Protocol 0.1 MCG/KG/MIN Propofol 1,000 mg in 100 mls @ 1.248 mls/hr 10/22/24 12:45 10/25/24 02:16 Diprivan IV 15 mcg/kg/min TITRATE MIMI 3.743 mls/hr Titration Protocol 5 MCG/KG/MIN Vasopressin 40 unit/ Sodium 102 mls @ 4.5 mls/hr 10/22/24 13:48 10/25/24 04:26 Chloride IV 4.5 mls/hr CONT MIMI Administration INSULIN DRIP PREMIX 100 unit in 100 mls @ 6 mls/hr 10/23/24 06:15 10/24/24 09:40 Myxredlin Drip Premix IV 0 mls/hr TITRATE MIMI 0 mls/hr Titration Protocol Phenylephrine HCl 40,000 mcg/ 254 mls @ 31.25 mls/hr 10/23/24 13:30 10/25/24 08:49 Sodium Chloride IV 58.4 mls/hr TITRATE MIMI 58.4 mls/hr Titration Protocol Fentanyl 1,000 mcg/ Sodium 250 mls @ 7.279 mls/hr 10/23/24 13:30 10/25/24 08:12 Chloride IV 1 mcg/kg/hr TITRATE MIMI 10.399 mls/hr Titration Protocol 0.7 MCG/KG/HR Thiamine HCl 100 mg/ 1,032.2 mls @ 43.008 mls/hr 10/24/24 18:00 10/24/24 17:22 Multivitamins 10 ml/ Chromium/ IV 10/25/24 17:59 43.008 mls/hr Copper/Manganese/Seleni/Zn 1 1800 MIMI Administration ml/ Folic Acid 1 mg/ Sodium Acetate 40 meq/ Amino Acids/ Electrolytes Ertapenem 0.5 gm/ Sodium 100 mls @ 200 mls/hr 10/25/24 07:30 10/25/24 07:52 Chloride IV 200 mls/hr Q24H MIMI Administration Insulin Glargine 24 unit 10/25/24 09:00 10/25/24 08:55 Insulin Glargine 100 Unit/Ml 3ml Pen SUBCUT 24 unit DAILY [facility] Administration Insulin Human Lispro 0 unit 10/25/24 08:30 10/25/24 08:56 Insulin Lispro 100 Unit/Ml 3ml Vial SUBCUT 5 unit Q6H [facility] Administration Protocol Levothyroxine Sodium 75 mcg 10/13/24 06:00 10/25/24 07:07 Levothyroxine 75 Mcg Tablet PO Not Given DAILY@0600 [facility] Multivitamins 1 tab 10/13/24 09:00 10/25/24 08:31 Multivitamin 1 Tablet PO Not Given DAILY [facility] Ondansetron HCl 4 mg 10/12/24 18:08 10/21/24 23:25 Ondansetron 4 Mg/2 Ml Inj IV 4 mg Q6HR PRN Administration Nausea And Vomiting Pantoprazole Sodium 40 mg 10/22/24 16:20 10/25/24 09:02 Pantoprazole 40 Mg Vial IV 40 mg BID [facility] Administration Polyethylene Glycol 17 gm 10/15/24 15:30 10/25/24 08:31 Polyethylene Glycol 3350 17 Gm Powd.Pack PO Not Given DAILY [facility] Progesterone 100 mg 10/13/24 09:00 10/23/24 10:53 Progesterone, Micronized 100 Mg Capsule PO Not Given DAILY [facility] Sennosides 8.6 mg 10/15/24 15:27 10/15/24 15:34 Sennosides 8.6 Mg Tablet PO 8.6 mg BEDTIME PRN Administration Constipation Sodium Chloride 10 ml 10/12/24 21:00 10/25/24 08:31 Sodium Chloride 0.9% Flush IV Not Given BID MIMI Sodium Chloride 10 ml 10/12/24 18:21 10/13/24 01:29 Sodium Chloride 0.9% Flush IV 10 ml PRN PRN Administration Flush Objective Ventilator Parameters: Ventilator Settings FiO2 40 RT Vent Frequency 18 Ventilator Tidal Volume 300 Exhaled Positive End Expiratory 12 Pressure Inspiratory Phase Time 0.9 I:E Ratio 1:2.8 Patient Position HOB >= 30 degrees Labs 10/25/24 05:30 10/25/24 05:30 Labs: Laboratory Results - last 24 hr 10/23/24 10/24/24 10/25/24 11:30 11:04 05:30 WBC 13.2 H RBC 2.45 L Hgb 7.3 L Hct 21.1 L MCV 86.0 MCH 29.6 MCHC 34.5 RDW 16.3 H Plt Count 126 L Neut % (Auto) 79.1 H Lymph % (Auto) 17.3 L [place] % (Auto) 3.2 Eos % (Auto) 0.1 L Baso % (Auto) 0.3 Neut # (Auto) 01466 H Lymph # (Auto) 2300 [place] # (Auto) 400 Eos # (Auto) 0 Baso # (Auto) 0 ABG Sample Site Left radial ABG pH 7.33 L ABG pCO2 32.7 L ABG pO2 154 H ABG HCO3 17 L ABG Total CO2 17 L ABG O2 Saturation 99 ABG Base Excess -8.0 L [place] Test N/a Respiration Rate 18 O2 Delivery Device Adult ventilator Mode of Support Assist cont ventilat FiO2 % 60.0 % PEEP or CPAP 12 Sodium 132 L Potassium 3.5 Chloride 109 H Carbon Dioxide 14 L BUN 23 H Creatinine 2.01 H Estimated GFR 29 L BUN/Creatinine Ratio 11.4 Glucose 234 H D Calcium 7.1 L Ionized Calcium Alana 4.3 L Phosphorus 2.9 Magnesium 2.3 Total Bilirubin 4.6 H AST 707 H ALT 289 H Alkaline Phosphatase 305 H Total Protein 4.3 L Albumin 1.9 L Globulin 2.4 Albumin/Globulin Ratio 0.8 L Triglycerides 308 H 10/25/24 05:35 WBC RBC Hgb Hct MCV MCH MCHC RDW Plt Count Neut % (Auto) Lymph % (Auto) [place] % (Auto) Eos % (Auto) Baso % (Auto) Neut # (Auto) Lymph # (Auto) [place] # (Auto) Eos # (Auto) Baso # (Auto) ABG Sample Site Arterial line ABG pH 7.28 L* ABG pCO2 34.9 L ABG pO2 93 ABG HCO3 16 L ABG Total CO2 16 L ABG O2 Saturation 96 ABG Base Excess -9.7 L Pino Test N/a Respiration Rate 18 O2 Delivery Device Adult ventilator Mode of Support Assist cont ventilat FiO2 % 40 % PEEP or CPAP Sodium Potassium Chloride Carbon Dioxide BUN Creatinine Estimated GFR BUN/Creatinine Ratio Glucose Calcium Ionized Calcium Alana Phosphorus Magnesium Total Bilirubin AST ALT Alkaline Phosphatase Total Protein Albumin Globulin Albumin/Globulin Ratio Triglycerides Exam Vital Signs (past 8 hours): - 10/25/24 01:45 10/25/24 02:00 10/25/24 02:00 Pulse Rate 100 H 101 H Respiratory Rate 22 18 Blood Pressure 98/62 Pulse Oximetry 98 98 Oxygen Delivery Method 10/25/24 02:15 10/25/24 02:30 10/25/24 02:30 Pulse Rate 100 H 100 H Respiratory Rate 23 21 Blood Pressure 98/66 Pulse Oximetry 98 98 Oxygen Delivery Method 10/25/24 02:45 10/25/24 03:00 10/25/24 03:00 Pulse Rate 100 H 102 H Respiratory Rate 22 19 Blood Pressure 99/70 Pulse Oximetry 98 98 Oxygen Delivery Method 10/25/24 03:15 10/25/24 03:30 10/25/24 03:30 Pulse Rate 102 H 101 H Respiratory Rate 22 23 Blood Pressure 99/71 Pulse Oximetry 96 99 Oxygen Delivery Method 10/25/24 03:45 10/25/24 04:00 10/25/24 04:00 Pulse Rate 101 H Respiratory Rate 19 Blood Pressure 102/67 Pulse Oximetry 98 Oxygen Delivery Method Mechanical Ventilation 10/25/24 04:00 10/25/24 04:15 10/25/24 04:30 Pulse Rate 101 H 100 H Respiratory Rate 21 23 Blood Pressure 96/66 Pulse Oximetry 98 98 Oxygen Delivery Method 10/25/24 04:30 10/25/24 04:45 10/25/24 05:00 Pulse Rate 100 H 100 H Respiratory Rate 21 21 Blood Pressure 101/69 Pulse Oximetry 98 99 Oxygen Delivery Method 10/25/24 05:00 10/25/24 05:15 10/25/24 05:30 Pulse Rate 100 H 101 H Respiratory Rate 22 20 Blood Pressure 92/66 Pulse Oximetry 98 98 Oxygen Delivery Method 10/25/24 05:30 10/25/24 05:45 10/25/24 06:00 Pulse Rate 100 H 100 H Respiratory Rate 21 22 Blood Pressure 109/69 Pulse Oximetry 99 99 Oxygen Delivery Method 10/25/24 06:00 10/25/24 06:15 10/25/24 06:30 Pulse Rate 102 H 104 H Respiratory Rate 20 28 H Blood Pressure 97/65 Pulse Oximetry 94 92 Oxygen Delivery Method 10/25/24 06:30 10/25/24 06:45 10/25/24 07:00 Pulse Rate 102 H 101 H Respiratory Rate 17 15 Blood Pressure 96/69 Pulse Oximetry 100 100 Oxygen Delivery Method 10/25/24 07:00 10/25/24 07:15 10/25/24 07:30 Pulse Rate 100 H 99 H Respiratory Rate 16 15 Blood Pressure 101/68 Pulse Oximetry 100 100 Oxygen Delivery Method 10/25/24 07:30 10/25/24 07:45 10/25/24 08:00 Pulse Rate 98 H 98 H Respiratory Rate 15 14 Blood Pressure 100/71 Pulse Oximetry 100 100 Oxygen Delivery Method 10/25/24 08:00 10/25/24 08:15 10/25/24 08:30 Pulse Rate 98 H 98 H Respiratory Rate 14 16 Blood Pressure 100/65 Pulse Oximetry 100 100 Oxygen Delivery Method 10/25/24 08:30 10/25/24 08:45 10/25/24 09:00 Pulse Rate 97 H 97 H 96 H Respiratory Rate 14 15 16 Blood Pressure Pulse Oximetry 100 100 100 Oxygen Delivery Method 10/25/24 09:00 10/25/24 09:15 Pulse Rate 95 H Respiratory Rate 18 Blood Pressure 97/66 Pulse Oximetry 100 Oxygen Delivery Method Fraction of Inspired Oxygen 80 Oxygen Delivery Method Mechanical Ventilation Oxygen Flow Rate 4 Quality TeleICU VTE Deep Vein Thrombosis/Pulmonary Embolism Present on Admission: No Assessment & Plan Time-Based Coding :: [TOTAL MINUTES] spent with patient and on the chart (including review of chart, obtaining history, exam, reviewing outside data, placing orders, documenting exam and treatment plan, and counseling patient) on [DATE].
[2024-10-25] MEDS: BUMETANIDE 1 MG/4 ML VIAL 4 MG IV (10:04)
[2024-10-25] MEDS: BACLOFEN 10 MG TABLET PO (10:18)
--- NOTE | 2024-10-25 11:19 | P.PN_ITS ---
Subjective Subjective Interval history: Summary: She is a 54-year-old female who presented with weakness and electrolyte abnormalities in context of severe alcohol use disorder. She was also noted to have a subacute infarct and stroke. on 10/22 patient transferred to the ICU with septic shock likely due to aspiration pneumonia and acute cystitis due to ESBL E. coli. She has minimal urine output today, worsening creatinine. Tele-communications technician recommended transfer to center with CRRT. Discussed with patient's spouse and mother today, they were both in agreement that dialysis would not be what she would want, and furthermore than the chances of recovery with prolonged rehabilitation are small and she would not want to do this. They were in agreement to de-escalate care with movement towards comfort care. Exam Vital Signs (past 8 hours): - 10/25/24 03:30 10/25/24 03:30 10/25/24 03:45 Pulse Rate 101 H 101 H Respiratory Rate 23 19 Blood Pressure 99/71 Pulse Oximetry 99 98 Oxygen Delivery Method 10/25/24 04:00 10/25/24 04:00 10/25/24 04:00 Pulse Rate 101 H Respiratory Rate 21 Blood Pressure 102/67 Pulse Oximetry 98 Oxygen Delivery Method Mechanical Ventilation 10/25/24 04:15 10/25/24 04:30 10/25/24 04:30 Pulse Rate 100 H 100 H Respiratory Rate 23 21 Blood Pressure 96/66 Pulse Oximetry 98 98 Oxygen Delivery Method 10/25/24 04:45 10/25/24 05:00 10/25/24 05:00 Pulse Rate 100 H 100 H Respiratory Rate 21 22 Blood Pressure 101/69 Pulse Oximetry 99 98 Oxygen Delivery Method 10/25/24 05:15 10/25/24 05:30 10/25/24 05:30 Pulse Rate 101 H 100 H Respiratory Rate 20 21 Blood Pressure 92/66 Pulse Oximetry 98 99 Oxygen Delivery Method 10/25/24 05:45 10/25/24 06:00 10/25/24 06:00 Pulse Rate 100 H 102 H Respiratory Rate 22 20 Blood Pressure 109/69 Pulse Oximetry 99 94 Oxygen Delivery Method 10/25/24 06:15 10/25/24 06:30 10/25/24 06:30 Pulse Rate 104 H 102 H Respiratory Rate 28 H 17 Blood Pressure 97/65 Pulse Oximetry 92 100 Oxygen Delivery Method 10/25/24 06:45 10/25/24 07:00 10/25/24 07:00 Pulse Rate 101 H 100 H Respiratory Rate 15 16 Blood Pressure 96/69 Pulse Oximetry 100 100 Oxygen Delivery Method 10/25/24 07:15 10/25/24 07:30 10/25/24 07:30 Pulse Rate 99 H 98 H Respiratory Rate 15 15 Blood Pressure 101/68 Pulse Oximetry 100 100 Oxygen Delivery Method 10/25/24 07:45 10/25/24 08:00 10/25/24 08:00 Pulse Rate 98 H 98 H Respiratory Rate 14 14 Blood Pressure 100/71 Pulse Oximetry 100 100 Oxygen Delivery Method 10/25/24 08:00 10/25/24 08:15 10/25/24 08:30 Pulse Rate 98 H Respiratory Rate 16 Blood Pressure 100/65 Pulse Oximetry 100 Oxygen Delivery Method Mechanical Ventilation 10/25/24 08:30 10/25/24 08:45 10/25/24 09:00 Pulse Rate 97 H 97 H 96 H Respiratory Rate 14 15 16 Blood Pressure Pulse Oximetry 100 100 100 Oxygen Delivery Method 10/25/24 09:00 10/25/24 09:15 10/25/24 09:30 Pulse Rate 95 H Respiratory Rate 18 Blood Pressure 97/66 94/59 L Pulse Oximetry 100 Oxygen Delivery Method 10/25/24 09:30 10/25/24 10:00 10/25/24 10:00 Pulse Rate 95 H 94 H Respiratory Rate 19 21 Blood Pressure 91/62 Pulse Oximetry 100 99 Oxygen Delivery Method Fraction of Inspired Oxygen 80 Oxygen Delivery Method Mechanical Ventilation Oxygen Flow Rate 4 Narrative Exam Narrative: She is cachectic, and frail. Now intubated and sedated. Diffuse scattered rhonchi tachycardic, regular rhythm, no m/r/g Abdomen is soft, non distended. Extremities are free of edema. Objective Labs 10/25/24 05:30 10/25/24 05:30 Labs: Laboratory Results - last 24 hr 10/23/24 10/25/24 10/25/24 11:30 05:30 05:35 WBC 13.2 H RBC 2.45 L Hgb 7.3 L Hct 21.1 L MCV 86.0 MCH 29.6 MCHC 34.5 RDW 16.3 H Plt Count 126 L Neut % (Auto) 79.1 H Lymph % (Auto) 17.3 L [place] % (Auto) 3.2 Eos % (Auto) 0.1 L Baso % (Auto) 0.3 Neut # (Auto) 27388 H Lymph # (Auto) 2300 [place] # (Auto) 400 Eos # (Auto) 0 Baso # (Auto) 0 ABG Sample Site Arterial line ABG pH 7.28 L* ABG pCO2 34.9 L ABG pO2 93 ABG HCO3 16 L ABG Total CO2 16 L ABG O2 Saturation 96 ABG Base Excess -9.7 L Pino Test N/a Respiration Rate 18 O2 Delivery Device Adult ventilator Mode of Support Assist cont ventilat FiO2 % 40 % Sodium 132 L Potassium 3.5 Chloride 109 H Carbon Dioxide 14 L BUN 23 H Creatinine 2.01 H Estimated GFR 29 L BUN/Creatinine Ratio 11.4 Glucose 234 H D Calcium 7.1 L Ionized Calcium Alana 4.3 L Phosphorus 2.9 Magnesium 2.3 Total Bilirubin 4.6 H AST 707 H ALT 289 H Alkaline Phosphatase 305 H Total Protein 4.3 L Albumin 1.9 L Globulin 2.4 Albumin/Globulin Ratio 0.8 L Triglycerides 308 H PFSH Medical History Amenorrhea Neuropathy Chronic venous insufficiency Obstructive sleep apnea (Unknown) GERD (gastroesophageal reflux disease) (Unknown) Allergy (Unknown) Restless leg syndrome (2014) Anxiety (1989) Shoulder pain (Unknown) Foot pain (2003) Chronic back pain (Unknown) Vertigo (1979) Painful menstrual periods (Unknown) Heavy menses (Unknown) IBS (irritable bowel syndrome) (1985) Surgical History 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) Hx of sinus surgery (2011) History of removal of laparoscopic gastric banding device (2014) Hx of laparoscopic gastric banding (2011) Family History Grandmother Cancer Mental health problem Mother Age: 76 Mental health disorder Sister Age: 58 Heart disease Hypertension High cholesterol Mental health problem Asthma COPD (chronic obstructive pulmonary disease) Social History household members: spouse and family Smoking Status: Current every day smoker Tobacco: How many years used: 10 second hand exposure: No alcohol intake: current substance use type: does not use Assessment & Plan Assessment & Plan narrative: 1. Acute and subacute right frontal and possible left parietal punctate infarcts, Stable. Continue high-intensity statin therapy, aspirin. - repeat head CT 10/22 with no acute findings. 2. 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 4. Alcohol withdrawal delirium, resolved. 5. Benzodiazepine/baclofen dependence, stable. 6. Peripheral neuropathy, stable. 7. Failure to thrive/debility, active. She is on a citalopram for depression. 8. Hypokalemia, active. 9. Acute on chronic anemia, Stable. 10. Hypoglycemia, improved. NEW diagnoses 10/22 1. Septic shock, not present on admission, due to aspiration pneumonia, ESBL E. coli acute cystitis. 2. Shock liver 3. GAVINO 4. Acute metabolic encephalopathy 5. Acute on chronic anemia, possible GI bleeding. 6. Hyperglycemia PLAN: -tele-communications technician consult for help with pressors and management. Appreciate their assistance. -Patient with worsening bilateral pulmonary diffuse infiltrates on CXR. Either pulmonary edema or ARDS. No hemopytsis / secretions. Minimal response to 40 IV lasix yesterday with continued low UOP. Gave 2 mg bumex x1 also with minimal response. -sedation with propofol and fentanyl, can add precedex to wean off fentanyl too. -Currently on 2 pressors, weaned 1st levophed, have been coming down on Kwadwo and remains on Vaso. However worsening renal failure recommended for transfer to center with CRRT. Discussed goals of care with spouse as above, now plan to move towards comfort. -also on stress dose hydrocortisone will stop -Urine cultures with ESBL E. coli. Changed to ertapenem Will stop today. -transitioned from insulin infusion to lantus 20 units daily with sliding scale. Increased to 24 U this AM. Will stop further dosing given goals of care. -continue IV PPI -will stop TPN. I spent 40 minutes providing critical care management this patient. This excludes time spent in performing separately billed procedures. Dispo: remains ICU. Will work on decreasing pressors, then adjust sedation to versed and fentanyl drip. If she has not yet will palliatively extubate later today. Will give spouse some time to visit prior to initiation of withdrawal of care later today. GOC: changed 10/23 to DNR after goals of care discussion with spouse. On 10/25 with recommendation for CRRT transitioned to comfort measures and will move toward palliative extubation as noted above. Time-Based Coding :: [TOTAL MINUTES] spent with patient and on the chart (including review of chart, obtaining history, exam, reviewing outside data, placing orders, documenting exam and treatment plan, and counseling patient) on [DATE]. Quality VTE Deep Vein Thrombosis/Pulmonary Embolism Present on Admission: No
--- NOTE | 2024-10-25 13:31 | PC.NURSE ---
Addendum entered by Ryan Madrid R.N. 10/25/24 18:02: Extubated at 1805 by RT, patient tolerated well. Original Note: Per Dr Polk, patient to transition to comfort care. Patient to remain vented, but gradually stop vasopressin and phenylephrine. Continue Fentanyl drip, transition from Propofol drip to Versed drip as needed. spent time with patient at bedside prior to starting transition.
--- NOTE | 2024-10-25 13:41 | CM.DPC ---
DCP Comfort Care Per MD, pt with ESBL in her cultures and on IV-Abx and was switched to DNR over the weekend after discussion with spouse and reduced to 2 pressors now but today no urine output and recommendation of dialysis and hospital transfer for higher level of care needs as pt also remains intubated. had Goals of Care discussion with spouse and decision to make pt Comfort Care and will slowly withdraw treatment after spouse is bedside with pt today. Per RN, will likely start with withdrawl of Pressors and see how pt's HR and BP react and may or may not extubate pending her symptoms. SW left msg with update for admissions at [facility] as they had obtained SNF auth prior to pt being intubated and switched to Comfort. Page Mosher, POLICE CHIEF DEPUTY
--- NOTE | 2024-10-25 14:35 | RT ---
Pt is now on comfort care but still on vent secondary to MD orders. Sedation has been DC'd and fio2 turned down to 30% and PEEP down to 6.
[2024-10-25] MEDS: MIDAZOLAM 50 MG in DEXTROSE 5 % IN WATER 40 ML IV ×2 (15:04→23:00)
[2024-10-25] MEDS: MORPHINE 4 MG/ML INJ IV ×4 (18:09→23:44)
--- NOTE | 2024-10-25 18:13 | PM.DDS.1 ---
Documented by User: Josue Polk DO 11/05/24 18:29 Discharge Summary History of Illness Narrative: Per admitting provider: 54-year-old female with a long history of alcohol use chronic anxiety previous admissions for accidental overdosing combining benzodiazepines with alcohol who has been bed-bound and chair or chair bound for the past month unable to care for self. By report since her discharge September 15 she has not been able to get out of bed she has multiple sores over her sacrum Workup in the emergency department notable for MRI demonstrating small punctate CVA and frontal deep white matter and possibly right parietal cortex CTA of head and neck unremarkable echocardiogram from previous admission is also unremarkable CT of the cervical spine is unremarkable as well White count 11.8 73% neutrophils hemoglobin 11.8 platelets 277 Sodium 133 potassium 4 BUN creatinine 21 and 0.6 AST 59 ALT 25 CK 272 troponin below reference range TSH 7.19 T4 6.5 Chest x-ray is clear Hospital Course Date of Admission: 10/12/24 16:27 Primary care provider: Barry Em MD Consults: 10/12/24 08:08 Consult to [facility] [place] - Multi Line Claims Adjuster Stat Comment: Multi Line Claims Adjuster Consult needed for:: Unable to care for self Consult to Physical Therapy Evaluate & Treat Comment: Physician Instructions: Evaluate and Treat 10/12/24 11:31 Consult to Occupational Therapy Evaluate & Treat Comment: Physician Instructions: Evaluate and treat 10/12/24 17:08 Consult to Discharge Planning Routine Comment: Consult to Occupational Therapy Evaluate & Treat Comment: Physician Instructions: Evaluate and treat Consult to Physical Therapy Evaluate & Treat Comment: Physician Instructions: Evaluate and Treat Consult to Speech Therapy Evaluate & Treat Comment: Physician Instructions: Evaluate and treat 10/12/24 18:08 Consult to Dietitian, Adult Routine Comment: Reason For Exam: malnutrition 10/14/24 10:48 Consult to Dietitian, Adult Routine Comment: Reason For Exam: poor appetite 10/21/24 20:08 Consult to Dietitian, Adult Routine Comment: Reason For Exam: MNA score = 13 Discharge Diagnosis: 1. Acute and subacute right frontal and possible left parietal punctate infarcts, Stable. 2. 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 4. Alcohol withdrawal delirium, resolved. 5. Benzodiazepine/baclofen dependence, stable. 6. Peripheral neuropathy, stable. 7. Failure to thrive/debility, active. 8. Hypokalemia, active. 9. Acute on chronic anemia, Stable. 10. Hypoglycemia, improved. 11. Depression NEW diagnoses as of 10/22/24 1. Septic shock, not present on admission, due to aspiration pneumonia, ESBL E. coli acute cystitis. 2. Acute liver failure, likely ischemic 3. GAVINO, aneuric acute renal failure 4. Acute metabolic encephalopathy 5. Acute on chronic anemia, possible GI bleeding. 6. Hyperglycemia likely due to steroids Cause of : septic shock due to aspiration pneumonia and acute cystitis, due to ischemic stroke and chronic alcohol use. Hospital Course: Rebekah Washington is a 54-year-old female who presented with weakness and electrolyte abnormalities in context of severe alcohol use disorder who was admitted with inability to care for herself. She was also noted to have a subacute infarct and stroke on MRI shortly after admission. She was pending disposition for a number of days, but then on 10/22/24 the patient was transferred to the ICU with septic shock likely due to aspiration pneumonia and acute cystitis due to ESBL E. coli based on imaging and culture data. She was intubated after arrival to the ICU, requiring 3 pressors to maintain adequate blood pressure. She was anemic and had guaiac positive gastric contests. She was started on IV PPI and given blood transfusion. Given her continued hemodynamic instability endoscopy was not persue. She remained somewhat stable on 2-3 pressors after admission to the ICU. However, she had increasing vent requirements and diffuse pulmonary infiltrates on imaging. She had a marked acidosis and was treated with multiple rounds of bicarb pushes. After a couple of days her urine output declined dramatically, with worsening creatinine on blood work. On 10/24 goals of care with patient's spouse and mother were performed, and patient was made DNR. On 10/25 with continued decline in renal function she was recommended for transfer for CRRT. Performed repeat goals of care discussion with spouse and patient's mother, whom elected to persue comfort measures and palliative extubation. She was extubated at 6pm on 10/25 after weaning off pressors and changing her sedation slightly. She at 06:24 on 10/26/2024. Objective Labs 10/25/24 05:30 10/25/24 05:30 Labs: Laboratory Results - last 24 hr 10/25/24 10/25/24 05:30 05:35 WBC 13.2 H RBC 2.45 L Hgb 7.3 L Hct 21.1 L MCV 86.0 MCH 29.6 MCHC 34.5 RDW 16.3 H Plt Count 126 L Neut % (Auto) 79.1 H Lymph % (Auto) 17.3 L [place] % (Auto) 3.2 Eos % (Auto) 0.1 L Baso % (Auto) 0.3 Neut # (Auto) 37095 H Lymph # (Auto) 2300 [place] # (Auto) 400 Eos # (Auto) 0 Baso # (Auto) 0 ABG Sample Site Arterial line ABG pH 7.28 L* ABG pCO2 34.9 L ABG pO2 93 ABG HCO3 16 L ABG Total CO2 16 L ABG O2 Saturation 96 ABG Base Excess -9.7 L Pino Test N/a Respiration Rate 18 O2 Delivery Device Adult ventilator Mode of Support Assist cont ventilat FiO2 % 40 % Sodium 132 L Potassium 3.5 Chloride 109 H Carbon Dioxide 14 L BUN 23 H Creatinine 2.01 H Estimated GFR 29 L BUN/Creatinine Ratio 11.4 Glucose 234 H D Calcium 7.1 L Phosphorus 2.9 Magnesium 2.3 Total Bilirubin 4.6 H AST 707 H ALT 289 H Alkaline Phosphatase 305 H Total Protein 4.3 L Albumin 1.9 L Globulin 2.4 Albumin/Globulin Ratio 0.8 L Triglycerides 308 H Documented by User: Ammon Valencia MD 10/26/24 10:58 Discharge Summary Hospital Course Date of : 10/26/24 Hospital Course: Rebekah Washington is a 54-year-old female who presented with weakness and electrolyte abnormalities in context of severe alcohol use disorder who was admitted with inability to care for herself. She was also noted to have a subacute infarct and stroke on MRI shortly after admission. She was pending disposition for a number of days, but then on 10/22/24 the patient was transferred to the ICU with septic shock likely due to aspiration pneumonia and acute cystitis due to ESBL E. coli based on imaging and culture data. She was intubated after arrival to the ICU, requiring 3 pressors to maintain adequate blood pressure. She was anemic and had guaiac positive gastric contests. She was started on IV PPI and given blood transfusion. Given her continued hemodynamic instability endoscopy was not persue. She remained somewhat stable on 2-3 pressors after admission to the ICU. However, she had increasing vent requirements and diffuse pulmonary infiltrates on imaging. She had a marked acidosis and was treated with multiple rounds of bicarb pushes. After a couple of days her urine output declined dramatically, with worsening creatinine on blood work. On 10/24 goals of care with patient's spouse and mother were performed, and patient was made DNR. On 10/25 with continued decline in renal function she was recommended for transfer for CRRT. Performed repeat goals of care discussion with spouse and patient's mother, whom elected to persue comfort measures and palliative extubation. She was extubated at 6pm on 10/25 after weaning off pressors and changing her sedation slightly. She at 06/30/2003 on 10/26/2024. Objective Labs 10/25/24 05:30 10/25/24 05:30
[2024-10-25] MEDS: SCOPOLAMINE 1 PATCH TOP (18:26)
[2024-10-25] MEDS: SODIUM CHLORIDE 0.9% FLUSH 10 ML IV (20:39)
[2024-10-26] MEDS: fentaNYL 1,000 MCG in SODIUM CHLORIDE 0.9% 230 ML 15.598 MCG IV (01:14)
[2024-10-26] MEDS: MORPHINE 4 MG/ML INJ IV ×2 (02:29→06:13)
--- NOTE | 2024-10-26 07:40 | PC.NURSE ---
pt unresponsive all night, RASS -4, morphine prn for resp distress, hypotensive, sats 50-70%, comfort care measures maintained. TOD 0624, informed, message left on mother's phone to call hospital.
== END 2024-10-26 06:24 | disposition expired | DRG 45 ==
LOC: ED 16:22 → AC 16:28 → ICU 10-22 12:28
PROVIDERS: Emergency Medicine; Family Medicine; Hospitalist; Internal Medicine; Internal Medicine Critical Care Medicine; Pharmacist Pharmacist Clinician (PhC)/ Clinical Pharmacy Specialist; Admitting Provider Internal Medicine; Emergency Provider Emergency Medicine; Family Provider Family Medicine; PCP Family Medicine; Referring Provider Emergency Medicine; Visit Provider Internal Medicine
DX: I63.9 Cerebral infarction, unspecified (principal); F10.96 Alcohol use, unspecified with alcohol-induced persisting amnestic disorder; L89.153 Pressure ulcer of sacral region, stage 3; F10.939 Alcohol use, unspecified with withdrawal, unspecified; E43 Unspecified severe protein-calorie malnutrition; Z68.1 Body mass index [BMI] 19.9 or less, adult; R62.7 Adult failure to thrive; R27.0 Ataxia, unspecified; R27.8 Other lack of coordination; G31.89 Other specified degenerative diseases of nervous system; F10.931 Alcohol use, unspecified with withdrawal delirium; F13.20 Sedative, hypnotic or anxiolytic dependence, uncomplicated; G62.1 Alcoholic polyneuropathy; F17.200 Nicotine dependence, unspecified, uncomplicated; E87.6 Hypokalemia; D64.9 Anemia, unspecified; F41.9 Anxiety disorder, unspecified; E16.2 Hypoglycemia, unspecified; R53.81 Other malaise; R00.0 Tachycardia, unspecified; J69.0 Pneumonitis due to inhalation of food and vomit; A41.9 Sepsis, unspecified organism; R65.21 Severe sepsis with septic shock; J96.01 Acute respiratory failure with hypoxia; N17.9 Acute kidney failure, unspecified; E88.09 Other disorders of plasma-protein metabolism, not elsewhere classified; K92.0 Hematemesis; R44.3 Hallucinations, unspecified; G93.41 Metabolic encephalopathy; K72.00 Acute and subacute hepatic failure without coma; E87.1 Hypo-osmolality and hyponatremia; K52.9 Noninfective gastroenteritis and colitis, unspecified; B96.20 Unspecified Escherichia coli [E. coli] as the cause of diseases classified elsewhere; F32.A Depression, unspecified; N30.00 Acute cystitis without hematuria; T38.0X5A Adverse effect of glucocorticoids and synthetic analogues, initial encounter; R29.702 NIHSS score 2; R29.704 NIHSS score 4; J18.9 Pneumonia, unspecified organism; R73.9 Hyperglycemia, unspecified; Y90.0 Blood alcohol level of less than 20 mg/100 ml; Z74.01 Bed confinement status; Z66 Do not resuscitate
CPT/HCPCS: 36415; 36430; 36600; 51798; 70450; 70496; 70498; 70553; 71045; 71250; 72156; 74176; 80048; 80053; 80061; 80305; 80320; 81001; 82330; 82550; 82805; 82962; 83036; 83605; 83735; 84100; 84134; 84436; 84443; 84478; 84484; 85007; 85025; 85027; 85384; 86850; 86900; 86901; 87040; 87077; 87086; 87186; 87797; 92610; 92950; 93005; 93307; 94002; 94003; 94760; 94799; 96361; 96374; 97162; 97167; 97530; 97535; 99233; 99284; 99291; P9016; A9270; A9579; B4185; B4189; J0692; J0696; J1171; J1335; J1630; J1644; J1720; J1815; J1938; J2250; J2270; J2405; J2470; J2543; J2704; J3010; J3360; J3475; P9041; P9045; Q9967